=== PATIENT | male | born 1935 | race Caucasian/White ===

== ENCOUNTER 2018-05-04 06:48 | Inpatient (IN) | payer MEDICARE, BC, SELFPAY ==
[2018-05-04] VITALS (20 sets, daily range): BP systolic 107–150; BP diastolic 54–83; PULSE 72–105; RESP 15–25; TEMP 37.4–38.7; O2SAT 86–99; BMI 30.8
--- NOTE | 2018-05-04 07:14 | ED.ABDPAIN ---
HPI - Abdominal Pain General Chief Complaint: Abdominal Pain Stated Complaint: RLQ pain Time Seen by Provider: 05/04/18 06:54 Source: patient Mode of arrival: other (air lift from [facility]) Limitations: no limitations History of Present Illness HPI narrative: This is an 82-year-old male comes to the emergency department with complaint of right lower quadrant pain in the abdomen. Patient states he has been having pain for the last 2 days. He states that it is between the belly button and the right hip. He states that it does not radiate to his flank or back. He does have some back pain but states it is his chronic back pain. He had a fever here on arrival. He has not had any nausea or vomiting. He has felt like he needed to have a bowel movement for the last day and a half but has not had 1 even after taking laxatives. He is passing gas regularly. He has noticed that his urine was technical analyst than it normally is. He also noticed he had some discomfort with urination. Patient states that he did had abdominal surgery in the past for what sounds like a perforated stomach after taking NSAIDs or similar medication. He has a history significant for atrial fibrillation, polymyalgia rheumatica, hypertension and dyslipidemia. He has not smoked in about 40 years, he quit drinking about a year ago. He denies any current illicit. Related Data Home Medications Medication Instructions Recorded Confirmed acetaminophen 1,000 mg PO TID 05/04/18 05/04/18 amlodipine [Norvasc] 5 mg PO QPM 05/04/18 05/04/18 ascorbic acid (vitamin C) 500 mg PO BID 05/04/18 05/04/18 aspirin 81 mg PO DAILY 05/04/18 05/04/18 finasteride 5 mg PO DAILY 05/04/18 05/04/18 fosinopril 20 mg PO BID 05/04/18 05/04/18 lovastatin 40 mg PO QPM 05/04/18 05/04/18 methotrexate sodium (PF) 1 ml IM QWEEK 05/04/18 05/04/18 multivitamin [One Daily 1 tab PO DAILY 05/04/18 05/04/18 Multivitamin] potassium chloride [Klor-Con M20] 20 meq PO DAILY 05/04/18 05/04/18 sotalol 40 mg PO BID 05/04/18 05/04/18 tamsulosin [Flomax] 0.4 mg PO QPM 05/04/18 05/04/18 warfarin [Jantoven] 2.5 mg PO MOWEFR 05/04/18 05/04/18 warfarin [Jantoven] 5 mg PO SUTUTHSA 05/04/18 05/04/18 Previous Rx's Medication Instructions Recorded allopurinol 300 mg PO QDAY #90 tab 08/26/16 hydrochlorothiazide 25 mg PO QAM #90 tab 08/26/16 Allergies Allergy/AdvReac Type Severity Reaction Status Date / Time latex [LATEX] Allergy Mild Verified 05/04/18 07:31 Review of Systems Review of Systems All systems reviewed & are unremarkable except as noted in HPI and below Constitutional Reports fever(s) Cardiovascular Denies chest pain and Denies dyspnea Respiratory Denies dyspnea Gastrointestinal Gastrointestinal: Reports abdominal pain (Right lower quadrant), Denies change in bowel habits, Reports constipation, Denies diarrhea, Denies nausea and Denies vomiting Genitourinary Denies hematuria, Denies difficulty urinating, Denies genital pain, Reports dysuria, Denies flank pain, Reports urinary frequency, Denies urinary incontinence and Reports urinary urgency Musculoskeletal Reports back pain (Chronic back pain) Integumentary/Breasts Denies rash PFSH Medical History Atrial fibrillation (Acute) Cholelithiasis (Acute) Chronic anticoagulation (Acute) Gout (Acute) History of gastric ulcer (Acute) History of tobacco use (Acute) Hyperlipidemia (Acute) Hypertension (Acute) Obesity (Acute) Polymyalgia rheumatica (Acute) Surgical History History of laparotomy (Acute) Family History: Reviewed 05/04/18 by Jose Perez MD Social History household members: spouse and other Smoking Status: Former smoker alcohol intake: former Exam Narrative Exam Narrative: GENERAL: Alert and oriented x three, well-nourished, well-appearing elderly male in mild distress. HEENT: Head normocephalic, atraumatic, EOMI, pupils reactive, face symmetric, moist mucous membranes NECK: Supple, full range of motion CARDIOVASCULAR: Regular rate and rhythm without murmurs, rubs or gallops. RESPIRATORY: Breath sounds equal bilaterally, no wheezes rales or rhonchi. ABDOMEN: Soft, positive for right lower quadrant tenderness. Normoactive bowel sounds all 4 quadrants. No guarding, positive for rebound, no rigidity, no mass : No CVA tenderness EXTREMITIES: Normal range of motion, no clubbing or edema. Neurovascularly intact NEUROLOGICAL: Cranial nerves II through XII grossly intact. Moving all extremities SKIN: Warm, dry, no petechiae, no rashes or lesions. Initial Vital Signs Initial Vital Signs: Vital Signs Temperature 100.5 F H 05/04/18 07:04 Pulse Rate 97 H 05/04/18 07:04 Respiratory Rate 15 05/04/18 07:04 Blood Pressure 135/69 05/04/18 07:04 Pulse Oximetry 93 05/04/18 07:04 Course Orders Ordered: ED Orders 05/04/18 11:05 Education, smoking cessation ONGOING 05/04/18 11:09 Consult to Discharge Planning Routine 05/04/18 11:24 Fresh Frozen Plasma Stat Type and Screen Stat 05/04/18 16:05 Prothrombin Time INR Routine 05/05/18 05:00 Prothrombin Time INR Routine Acetaminophen (Tylenol) 650 mg PO Q6HR PRN PRN Reason: As Needed for Fever/Mild Pain Hydromorphone HCl (Dilaudid) 1 mg IV Q2H PRN PRN Reason: Pain, Severe (7-10) Sodium Chloride (Normal Saline 0.9%) 1,000 mls @ 150 mls/hr IV CONT [facility] Last Infusion: 05/04/18 11:26 Dose: 0 mls/hr Admin: 05/04/18 10:19 Dose: 150 mls/hr Sodium Chloride (Normal Saline 0.9%) 1,000 mls @ 100 mls/hr IV CONT [facility] Last Admin: 05/04/18 12:26 Dose: 100 mls/hr Metronidazole (Flagyl) 500 mg in 100 mls @ 100 mls/hr IV Q8H [facility] Last Infusion: 05/04/18 18:54 Dose: 100 mls/hr Admin: 05/04/18 17:45 Dose: 100 mls/hr Piperacillin/Tazobactam/Dextrose (Zosyn) 3.375 gm in 50 mls @ 100 mls/hr IV Q8H [facility] Ondansetron HCl (Zofran) 4 mg IV Q6HR [facility] Last Admin: 05/04/18 18:53 Dose: Admin: 05/04/18 18:52 Dose: Discontinued Medications Acetaminophen (Tylenol) 650 mg PO NOW ONE Stop: 05/04/18 07:21 Last Admin: 05/04/18 07:34 Dose: 650 mg Metronidazole (Flagyl) 500 mg in 100 mls @ 100 mls/hr IV Q8H [facility] Last Admin: 05/04/18 18:58 Dose: Not Given Piperacillin/Tazobactam/Dextrose (Zosyn) 3.375 gm in 50 mls @ 100 mls/hr IV Q8H [facility] Last Admin: 05/04/18 12:26 Dose: 100 mls/hr Piperacillin/Tazobactam/Dextrose (Zosyn) 3.375 gm in 50 mls @ 100 mls/hr IV Q8H [facility] Piperacillin/Tazobactam/Dextrose (Zosyn) 3.375 gm in 50 mls @ 100 mls/hr IV Q8H [facility] Last Admin: 05/04/18 18:57 Dose: Morphine Sulfate (Morphine) 4 mg IV NOW ONE Stop: 05/04/18 07:21 Last Admin: 05/04/18 10:19 Dose: 4 mg Ondansetron HCl (Zofran) 4 mg IV NOW ONE Stop: 05/04/18 07:31 Last Admin: 05/04/18 07:31 Dose: 4 mg Vital Signs - 8 hr 05/04/18 11:11 05/04/18 11:40 05/04/18 14:40 Temperature 99.6 F 101.7 F H Pulse Rate 72 100 H 98 H Respiratory Rate 18 18 16 Blood Pressure 150/66 H 143/63 H Blood Pressure [Right Arm] 124/62 Pulse Oximetry 93 95 05/04/18 15:00 05/04/18 15:52 05/04/18 17:23 Temperature 99.8 F H 99.8 F H Pulse Rate 98 H 98 H Respiratory Rate 20 20 Blood Pressure 148/63 H 148/63 H Blood Pressure [Right Arm] Pulse Oximetry 93 94 MDM - Abdominal Pain Differential Diagnosis Differential diagnosis: Likely abdominal pain, acute appendicitis, calculus of kidney, constipation, diverticulitis, small bowel obstruction and other (large bowel obstruction) Lab Data Attestation: I reviewed the patient's lab results. Result diagrams: 05/04/18 07:20 05/04/18 07:20 Lab Results 05/04/18 05/04/18 05/04/18 Range/Units 07:20 07:20 07:20 WBC 14.1 H (4.5-11.0) X10^3/uL RBC 4.53 (4.5-5.9) X10^6/uL Hgb 14.5 (13.5-17.5) g/dL Hct 42.8 (41-53) % MCV 94.5 (80-100) fL MCH 32.0 (26-34) PG MCHC 33.9 (30-36) % RDW 15.6 H (11.6-14.8) % Plt Count 224 (150-400) X10^3/uL Neut % (Auto) 87.3 H (50-75) % Lymph % (Auto) 6.0 L (25-40) % [place] % (Auto) 5.8 (3-14) % Eos % (Auto) 0.1 L (2-4) % Baso % (Auto) 0.8 (0-2) % PT (10.1-12.7) SECONDS INR (0.9-1.3) Sodium 139 (137-145) mmol/L Potassium 3.9 (3.4-5.1) mmol/L Chloride 99 (98-107) mmol/L Carbon Dioxide 27 (22-32) mmol/L BUN 16 (9-20) mg/dL Creatinine 0.70 (0.66-1.25) mg/dL Estimated GFR > 60.0 (>60) mL/min BUN/Creatinine Ratio 22.9 H (6-22) Glucose 138 H (80-110) mg/dL Calcium 8.8 (8.4-10.2) mg/dL Total Bilirubin 1.4 H (0.2-1.3) mg/dL AST 23 (17-59) IU/L ALT 26 (21-72) IU/L Alkaline Phosphatase 54 (38-126) U/L Total Protein 6.8 (6.3-8.2) g/dL Albumin 4.1 (3.5-5.0) g/dL Globulin 2.7 (1.7-4.1) g/dL Albumin/Globulin Ratio 1.5 (1.0-2.8) Lipase 33 (23-300) U/L Urine RBC None seen (0-5/HPF) Urine WBC 1-5/hpf (0-5/HPF) Ur Squamous Epith Cells 1-5 /hpf Urine Bacteria Many (>30) H (None) Ur Culture Indicated? Cult not indicated Micro UA Comment Not Reportable Blood Type Antibody Screen 05/04/18 05/04/18 05/04/18 Range/Units 07:20 11:24 16:05 WBC (4.5-11.0) X10^3/uL RBC (4.5-5.9) X10^6/uL Hgb (13.5-17.5) g/dL Hct (41-53) % MCV (80-100) fL MCH (26-34) PG MCHC (30-36) % RDW (11.6-14.8) % Plt Count (150-400) X10^3/uL Neut % (Auto) (50-75) % Lymph % (Auto) (25-40) % [place] % (Auto) (3-14) % Eos % (Auto) (2-4) % Baso % (Auto) (0-2) % PT 28.0 H 23.3 H (10.1-12.7) SECONDS INR 2.4 H 2.0 H (0.9-1.3) Sodium (137-145) mmol/L Potassium (3.4-5.1) mmol/L Chloride (98-107) mmol/L Carbon Dioxide (22-32) mmol/L BUN (9-20) mg/dL Creatinine (0.66-1.25) mg/dL Estimated GFR (>60) mL/min BUN/Creatinine Ratio (6-22) Glucose (80-110) mg/dL Calcium (8.4-10.2) mg/dL Total Bilirubin (0.2-1.3) mg/dL AST (17-59) IU/L ALT (21-72) IU/L Alkaline Phosphatase (38-126) U/L Total Protein (6.3-8.2) g/dL Albumin (3.5-5.0) g/dL Globulin (1.7-4.1) g/dL Albumin/Globulin Ratio (1.0-2.8) Lipase (23-300) U/L Urine RBC (0-5/HPF) Urine WBC (0-5/HPF) Ur Squamous Epith Cells Urine Bacteria (None) Ur Culture Indicated? Micro UA Comment Blood Type AB Positive Antibody Screen Negative Point of care testing: Urine Dip Bedside Urine Glucose Negative Bedside Urine Bilirubin - Negative Bedside Urine Ketone ++ 40 Urine Specific [place] 1.030 Bedside Urine Occult Blood - Negative Bedside Urine pH 6.0 Bedside Urine Protein +/- 15 Bedside Urine Urobilinogen - Negative Bedside Urine Nitrite - Negative Bedside Urine Leukocytes - Negative Esterase Imaging Data CT scan - abdomen: Radiologist's impression: Launch Image View Report History [address] [address] [address] Scan Report Signed Patient: Teja Gage MR#: [id number] : 1935 Acct:[id number] Age/Sex: 82 / M Date of Service: 05/04/18 Loc: ED Accession Number: [id number] Procedure: CT abdomen pelvis w con Ordering Provider: Connie Ball D.O. PROCEDURE: CT ABDOMEN PELVIS W CON INDICATIONS: right lower quad pain, no BM x 2 days, no emesis, appy vs obstruction vs. TECHNIQUE: After the administration of intravenous contrast, 5 mm thick sections acquired from the diaphragm to the symphysis. 5 mm coronal and sagittal reformats were acquired. For radiation dose reduction, the following was used: automated exposure control, adjustment of mA and/or kV according to patient size. COMPARISON: None. FINDINGS: Image quality: Excellent. ABDOMEN: Lung bases: Mild bibasilar scarring versus atelectasis is present. Heart size is normal. Solid organs: Liver is normal in size and enhancement. Gallbladder demonstrates a calculus within its lumen.. Biliary system is non dilated. Pancreas enhances normally. Spleen is normal in size and enhancement. No adrenal nodules. Kidneys demonstrate normal size and enhancement, without hydronephrosis. Peritoneum and bowel: Stomach is within normal limits. There is mild distention of several small bowel loops within the left upper quadrant. There is mild thickening of the terminal ileum. The colon is nondistended. There is diverticulosis of the descending and sigmoid colon. There is moderate thickening of the mid sigmoid colon. There is moderate fat stranding surrounding the sigmoid colon. The appendix is distended, measuring 15 mm, and demonstrates an appendicolith at its base. There is moderate fat stranding surrounding the appendix. Severe fat stranding within the right lower quadrant is present, adjacent to the mid sigmoid colon, appendix, and cecum. Small amount of free fluid in the pelvis. No pneumoperitoneum. Nodes and vessels: No retroperitoneal or mesenteric adenopathy by size criteria. Aorta and inferior vena cava are normal in size. Miscellaneous: No ventral hernias. PELVIS: Genitourinary: Moderate to severe thickening of the superior and right superior urinary bladder wall. Miscellaneous: No inguinal hernias or adenopathy. Bones: No suspicious bony lesions. No vertebral body compression fractures. IMPRESSION: 1. Acute appendicitis with appendicolith, with severe surrounding inflammation. There is associated secondary thickening/inflammation of the pizarro of the cecum, terminal ileum, sigmoid colon, and urinary bladder. 2. Followup colonoscopy is recommended to exclude underlying neoplasm. 3. Patient is at risk for enterovesical fistula, secondary to the urinary bladder wall thickening and multiple adjacent small and large bowel loops. 4. Cholelithiasis. 5. Findings discussed with Dr. Ball on 05.04.18 at 0855 hrs.. Dictated by: Jordan Scanlon M.D. on 05/04/2018 at 8:47 Approved by: Jordan Scanlon M.D. on 05/04/2018 at 8:56 MDM Narrative Medical decision making narrative: Discussed with Dr. Perez, suspicious exam, fever, wbc 14 although no BM x [address] abd/pelvis first. Dr. Scanlon called with results, appendicitis, appendicolith, sigmoid, ileum and bladder are all inflammed. No fistula seen. Colon thickened. Spoke with Dr. Perez, he will be in ED to see patient then decide to admit to medicine vs. surgery. He'll take care of reversal of coumadin, antibiotics and decision was made to admit to Dr. Perez. Discharge Plan Departure Patient Disposition: Admitted as Observation Clinical Impression: Acute appendicitis Discharge Date/Time: 05/04/18 11:30 Interventions: ED Discharge Assessment Last Done: 05/04/18 11:29 Admit Date/Time: 05/04/18 09:29 Admit Provider: Jose Perez
--- NOTE | 2018-05-04 07:19 | ED_ITS ---
HPI - Abdominal Pain General Chief Complaint: Abdominal Pain Stated Complaint: RLQ pain Time Seen by Provider: 05/04/18 06:54 Source: patient Mode of arrival: other (air lift from [facility]) Limitations: no limitations History of Present Illness HPI narrative: This is an 82-year-old male comes to the emergency department with complaint of right lower quadrant pain in the abdomen. Patient states he has been having pain for the last 2 days. He states that it is between the belly button and the right hip. He states that it does not radiate to his flank or back. He does have some back pain but states it is his chronic back pain. He had a fever here on arrival. He has not had any nausea or vomiting. He has felt like he needed to have a bowel movement for the last day and a half but has not had 1 even after taking laxatives. He is passing gas regularly. He has noticed that his urine was weeder than it normally is. He also noticed he had some discomfort with urination. Patient states that he did had abdominal surgery in the past for what sounds like a perforated stomach after taking NSAIDs or similar medication. He has a history significant for atrial fibrillation, polymyalgia rheumatica, hypertension and dyslipidemia. He has not smoked in about 40 years, he quit drinking about a year ago. He denies any current illicit. Related Data Home Medications Medication Instructions Recorded Confirmed acetaminophen 1,000 mg PO TID 05/04/18 05/04/18 amlodipine [Norvasc] 5 mg PO QPM 05/04/18 05/04/18 ascorbic acid (vitamin C) 500 mg PO BID 05/04/18 05/04/18 aspirin 81 mg PO DAILY 05/04/18 05/04/18 finasteride 5 mg PO DAILY 05/04/18 05/04/18 fosinopril 20 mg PO BID 05/04/18 05/04/18 lovastatin 40 mg PO QPM 05/04/18 05/04/18 methotrexate sodium (PF) 1 ml IM QWEEK 05/04/18 05/04/18 multivitamin [One Daily 1 tab PO DAILY 05/04/18 05/04/18 Multivitamin] potassium chloride [Klor-Con M20] 20 meq PO DAILY 05/04/18 05/04/18 sotalol 40 mg PO BID 05/04/18 05/04/18 tamsulosin [Flomax] 0.4 mg PO QPM 05/04/18 05/04/18 warfarin [Jantoven] 2.5 mg PO MOWEFR 05/04/18 05/04/18 warfarin [Jantoven] 5 mg PO SUTUTHSA 05/04/18 05/04/18 Previous Rx's Medication Instructions Recorded allopurinol 300 mg PO QDAY #90 tab 08/26/16 hydrochlorothiazide 25 mg PO QAM #90 tab 08/26/16 Allergies Allergy/AdvReac Type Severity Reaction Status Date / Time latex [LATEX] Allergy Mild Verified 05/04/18 07:31 Review of Systems Review of Systems All systems reviewed & are unremarkable except as noted in HPI and below Constitutional Reports fever(s) Cardiovascular Denies chest pain and Denies dyspnea Respiratory Denies dyspnea Gastrointestinal Gastrointestinal: Reports abdominal pain (Right lower quadrant), Denies change in bowel habits, Reports constipation, Denies diarrhea, Denies nausea and Denies vomiting Genitourinary Denies hematuria, Denies difficulty urinating, Denies genital pain, Reports dysuria, Denies flank pain, Reports urinary frequency, Denies urinary incontinence and Reports urinary urgency Musculoskeletal Reports back pain (Chronic back pain) Integumentary/Breasts Denies rash PFSH Medical History Atrial fibrillation (Acute) Cholelithiasis (Acute) Chronic anticoagulation (Acute) Gout (Acute) History of gastric ulcer (Acute) History of tobacco use (Acute) Hyperlipidemia (Acute) Hypertension (Acute) Obesity (Acute) Polymyalgia rheumatica (Acute) Surgical History History of laparotomy (Acute) Family History: Reviewed 05/04/18 by Jose Perez MD Social History household members: spouse and other Smoking Status: Former smoker alcohol intake: former Exam Narrative Exam Narrative: GENERAL: Alert and oriented x three, well-nourished, well- appearing elderly male in mild distress. HEENT: Head normocephalic, atraumatic, EOMI, pupils reactive, face symmetric, moist mucous membranes NECK: Supple, full range of motion CARDIOVASCULAR: Regular rate and rhythm without murmurs, rubs or gallops. RESPIRATORY: Breath sounds equal bilaterally, no wheezes rales or rhonchi. ABDOMEN: Soft, positive for right lower quadrant tenderness. Normoactive bowel sounds all 4 quadrants. No guarding, positive for rebound, no rigidity, no mass : No CVA tenderness EXTREMITIES: Normal range of motion, no clubbing or edema. Neurovascularly intact NEUROLOGICAL: Cranial nerves II through XII grossly intact. Moving all extremities SKIN: Warm, dry, no petechiae, no rashes or lesions. Initial Vital Signs Initial Vital Signs: Vital Signs Temperature 100.5 F H 05/04/18 07:04 Pulse Rate 97 H 05/04/18 07:04 Respiratory Rate 15 05/04/18 07:04 Blood Pressure 135/69 05/04/18 07:04 Pulse Oximetry 93 05/04/18 07:04 Course Orders Ordered: ED Orders 05/04/18 11:05 Education, smoking cessation ONGOING 05/04/18 11:09 Consult to Discharge Planning Routine 05/04/18 11:24 Fresh Frozen Plasma Stat Type and Screen Stat 05/04/18 16:05 Prothrombin Time INR Routine 05/05/18 05:00 Prothrombin Time INR Routine Acetaminophen (Tylenol) 650 mg PO Q6HR PRN PRN Reason: As Needed for Fever/Mild Pain Hydromorphone HCl (Dilaudid) 1 mg IV Q2H PRN PRN Reason: Pain, Severe (7-10) Sodium Chloride (Normal Saline 0.9%) 1,000 mls @ 150 mls/hr IV CONT [facility] Last Infusion: 05/04/18 11:26 Dose: 0 mls/hr Admin: 05/04/18 10:19 Dose: 150 mls/hr Sodium Chloride (Normal Saline 0.9%) 1,000 mls @ 100 mls/hr IV CONT [facility] Last Admin: 05/04/18 12:26 Dose: 100 mls/hr Metronidazole (Flagyl) 500 mg in 100 mls @ 100 mls/hr IV Q8H [facility] Last Infusion: 05/04/18 18:54 Dose: 100 mls/hr Admin: 05/04/18 17:45 Dose: 100 mls/hr Piperacillin/Tazobactam/Dextrose (Zosyn) 3.375 gm in 50 mls @ 100 mls/hr IV Q8H [facility] Ondansetron HCl (Zofran) 4 mg IV Q6HR [facility] Last Admin: 05/04/18 18:53 Dose: Admin: 05/04/18 18:52 Dose: Discontinued Medications Acetaminophen (Tylenol) 650 mg PO NOW ONE Stop: 05/04/18 07:21 Last Admin: 05/04/18 07:34 Dose: 650 mg Metronidazole (Flagyl) 500 mg in 100 mls @ 100 mls/hr IV Q8H [facility] Last Admin: 05/04/18 18:58 Dose: Not Given Piperacillin/Tazobactam/Dextrose (Zosyn) 3.375 gm in 50 mls @ 100 mls/hr IV Q8H [facility] Last Admin: 05/04/18 12:26 Dose: 100 mls/hr Piperacillin/Tazobactam/Dextrose (Zosyn) 3.375 gm in 50 mls @ 100 mls/hr IV Q8H [facility] Piperacillin/Tazobactam/Dextrose (Zosyn) 3.375 gm in 50 mls @ 100 mls/hr IV Q8H [facility] Last Admin: 05/04/18 18:57 Dose: Morphine Sulfate (Morphine) 4 mg IV NOW ONE Stop: 05/04/18 07:21 Last Admin: 05/04/18 10:19 Dose: 4 mg Ondansetron HCl (Zofran) 4 mg IV NOW ONE Stop: 05/04/18 07:31 Last Admin: 05/04/18 07:31 Dose: 4 mg Vital Signs - 8 hr 05/04/18 11:11 05/04/18 11:40 05/04/18 14:40 Temperature 99.6 F 101.7 F H Pulse Rate 72 100 H 98 H Respiratory Rate 18 18 16 Blood Pressure 150/66 H 143/63 H Blood Pressure [Right Arm] 124/62 Pulse Oximetry 93 95 05/04/18 15:00 05/04/18 15:52 05/04/18 17:23 Temperature 99.8 F H 99.8 F H Pulse Rate 98 H 98 H Respiratory Rate 20 20 Blood Pressure 148/63 H 148/63 H Blood Pressure [Right Arm] Pulse Oximetry 93 94 MDM - Abdominal Pain Differential Diagnosis Differential diagnosis: Likely abdominal pain, acute appendicitis, calculus of kidney, constipation, diverticulitis, small bowel obstruction and other (large bowel obstruction) Lab Data Attestation: I reviewed the patient's lab results. Result diagrams: 05/04/18 07:20 05/04/18 07:20 Lab Results 05/04/18 05/04/18 05/04/18 Range/Units 07:20 07:20 07:20 WBC 14.1 H (4.5-11.0) X10^3/uL RBC 4.53 (4.5-5.9) X10^6/uL Hgb 14.5 (13.5-17.5) g/dL Hct 42.8 (41-53) % MCV 94.5 (80-100) fL MCH 32.0 (26-34) PG MCHC 33.9 (30-36) % RDW 15.6 H (11.6-14.8) % Plt Count 224 (150-400) X10^3/uL Neut % (Auto) 87.3 H (50-75) % Lymph % (Auto) 6.0 L (25-40) % [place] % (Auto) 5.8 (3-14) % Eos % (Auto) 0.1 L (2-4) % Baso % (Auto) 0.8 (0-2) % PT (10.1-12.7) SECONDS INR (0.9-1.3) Sodium 139 (137-145) mmol/L Potassium 3.9 (3.4-5.1) mmol/L Chloride 99 (98-107) mmol/L Carbon Dioxide 27 (22-32) mmol/L BUN 16 (9-20) mg/dL Creatinine 0.70 (0.66-1.25) mg/dL Estimated GFR > 60.0 (>60) mL/min BUN/Creatinine Ratio 22.9 H (6-22) Glucose 138 H (80-110) mg/dL Calcium 8.8 (8.4-10.2) mg/dL Total Bilirubin 1.4 H (0.2-1.3) mg/dL AST 23 (17-59) IU/L ALT 26 (21-72) IU/L Alkaline Phosphatase 54 (38-126) U/L Total Protein 6.8 (6.3-8.2) g/dL Albumin 4.1 (3.5-5.0) g/dL Globulin 2.7 (1.7-4.1) g/dL Albumin/Globulin Ratio 1.5 (1.0-2.8) Lipase 33 (23-300) U/L Urine RBC None seen (0-5/HPF) Urine WBC 1-5/hpf (0-5/HPF) Ur Squamous Epith Cells 1-5 /hpf Urine Bacteria Many (>30) H (None) Ur Culture Indicated? Cult not indicated Micro UA Comment Not Reportable Blood Type Antibody Screen 05/04/18 05/04/18 05/04/18 Range/Units 07:20 11:24 16:05 WBC (4.5-11.0) X10^3/uL RBC (4.5-5.9) X10^6/uL Hgb (13.5-17.5) g/dL Hct (41-53) % MCV (80-100) fL MCH (26-34) PG MCHC (30-36) % RDW (11.6-14.8) % Plt Count (150-400) X10^3/uL Neut % (Auto) (50-75) % Lymph % (Auto) (25-40) % [place] % (Auto) (3-14) % Eos % (Auto) (2-4) % Baso % (Auto) (0-2) % PT 28.0 H 23.3 H (10.1-12.7) SECONDS INR 2.4 H 2.0 H (0.9-1.3) Sodium (137-145) mmol/L Potassium (3.4-5.1) mmol/L Chloride (98-107) mmol/L Carbon Dioxide (22-32) mmol/L BUN (9-20) mg/dL Creatinine (0.66-1.25) mg/dL Estimated GFR (>60) mL/min BUN/Creatinine Ratio (6-22) Glucose (80-110) mg/dL Calcium (8.4-10.2) mg/dL Total Bilirubin (0.2-1.3) mg/dL AST (17-59) IU/L ALT (21-72) IU/L Alkaline Phosphatase (38-126) U/L Total Protein (6.3-8.2) g/dL Albumin (3.5-5.0) g/dL Globulin (1.7-4.1) g/dL Albumin/Globulin Ratio (1.0-2.8) Lipase (23-300) U/L Urine RBC (0-5/HPF) Urine WBC (0-5/HPF) Ur Squamous Epith Cells Urine Bacteria (None) Ur Culture Indicated? Micro UA Comment Blood Type AB Positive Antibody Screen Negative Point of care testing: Urine Dip Bedside Urine Glucose Negative Bedside Urine Bilirubin - Negative Bedside Urine Ketone ++ 40 Urine Specific [place] 1.030 Bedside Urine Occult Blood - Negative Bedside Urine pH 6.0 Bedside Urine Protein +/- 15 Bedside Urine Urobilinogen - Negative Bedside Urine Nitrite - Negative Bedside Urine Leukocytes - Negative Esterase Imaging Data CT scan - abdomen: Radiologist's impression: Launch Image View Report History [address] [address] [address] Scan Report Signed Patient: Teja Gage MR#: [id number] : 1935 Acct:[id number] Age/Sex: 82 / M Date of Service: 05/04/18 Loc: ED Accession Number: [id number] Procedure: CT abdomen pelvis w con Ordering Provider: Connie Ball D.O. PROCEDURE: CT ABDOMEN PELVIS W CON INDICATIONS: right lower quad pain, no BM x 2 days, no emesis, appy vs obstruction vs. TECHNIQUE: After the administration of intravenous contrast, 5 mm thick sections acquired from the diaphragm to the symphysis. 5 mm coronal and sagittal reformats were acquired. For radiation dose reduction, the following was used: automated exposure control, adjustment of mA and/or kV according to patient size. COMPARISON: None. FINDINGS: Image quality: Excellent. ABDOMEN: Lung bases: Mild bibasilar scarring versus atelectasis is present. Heart size is normal. Solid organs: Liver is normal in size and enhancement. Gallbladder demonstrates a calculus within its lumen.. Biliary system is non dilated. Pancreas enhances normally. Spleen is normal in size and enhancement. No adrenal nodules. Kidneys demonstrate normal size and enhancement, without hydronephrosis. Peritoneum and bowel: Stomach is within normal limits. There is mild distention of several small bowel loops within the left upper quadrant. There is mild thickening of the terminal ileum. The colon is nondistended. There is diverticulosis of the descending and sigmoid colon. There is moderate thickening of the mid sigmoid colon. There is moderate fat stranding surrounding the sigmoid colon. The appendix is distended, measuring 15 mm, and demonstrates an appendicolith at its base. There is moderate fat stranding surrounding the appendix. Severe fat stranding within the right lower quadrant is present, adjacent to the mid sigmoid colon, appendix, and cecum. Small amount of free fluid in the pelvis. No pneumoperitoneum. Nodes and vessels: No retroperitoneal or mesenteric adenopathy by size criteria. Aorta and inferior vena cava are normal in size. Miscellaneous: No ventral hernias. PELVIS: Genitourinary: Moderate to severe thickening of the superior and right superior urinary bladder wall. Miscellaneous: No inguinal hernias or adenopathy. Bones: No suspicious bony lesions. No vertebral body compression fractures. IMPRESSION: 1. Acute appendicitis with appendicolith, with severe surrounding inflammation. There is associated secondary thickening/inflammation of the pizarro of the cecum, terminal ileum, sigmoid colon, and urinary bladder. 2. Followup colonoscopy is recommended to exclude underlying neoplasm. 3. Patient is at risk for enterovesical fistula, secondary to the urinary bladder wall thickening and multiple adjacent small and large bowel loops. 4. Cholelithiasis. 5. Findings discussed with Dr. Ball on 05.04.18 at 0855 hrs.. Dictated by: Jordan Scanlon M.D. on 05/04/2018 at 8:47 Approved by: Jordan Scanlon M.D. on 05/04/2018 at 8:56 MDM Narrative Medical decision making narrative: Discussed with Dr. Perez, suspicious exam, fever, wbc 14 although no BM x [address] abd/pelvis first. Dr. Scanlon called with results, appendicitis, appendicolith, sigmoid, ileum and bladder are all inflammed. No fistula seen. Colon thickened. Spoke with Dr. Perez, he will be in ED to see patient then decide to admit to medicine vs. surgery. He'll take care of reversal of coumadin, antibiotics and decision was made to admit to Dr. Perez. Discharge Plan Departure Patient Disposition: Admitted as Observation Clinical Impression: Acute appendicitis Discharge Date/Time: 05/04/18 11:30 Interventions: ED Discharge Assessment Last Done: 05/04/18 11:29 Admit Date/Time: 05/04/18 09:29 Admit Provider: Jose Perez
[2018-05-04] MEDS: ONDANSETRON 4 MG/2 ML INJ IV (07:31)
[2018-05-04] MEDS: ACETAMINOPHEN 325 MG TABLET 650 MG PO (07:34)
[2018-05-04 07:38] LABS: White Blood Cell Count 14.1 X10^3/uL (4.5-11.0)
[2018-05-04 07:39] LABS: Alanine Aminotransferase 26 IU/L (21-72); Albumin 4.1 g/dL (3.5-5.0); Albumin Globulin Ratio 1.5 (1.0-2.8); Alkaline Phosphatase 54 U/L (38-126); Aspartate Aminotransferase 23 IU/L (17-59); BUN Creatinine Ratio 22.9 (6-22); Bilirubin Total 1.4 mg/dL (0.2-1.3); Blood Urea Nitrogen 16 mg/dL (9-20); Calcium 8.8 mg/dL (8.4-10.2); Carbon Dioxide 27 mmol/L (22-32); Chloride 99 mmol/L (98-107); Eosinophils Percent Auto 0.1 % (2-4); Estimated Glomerular Filt Rate > 60.0 mL/min (>60); Globulin 2.7 g/dL (1.7-4.1); Glucose 138 mg/dL (80-110); HEMOLYSIS < 15 (0-50); Hematocrit 42.8 % (41-53); Hemoglobin 14.5 g/dL (13.5-17.5); Lipase 33 U/L (23-300); Mean Corpuscular HGB Conc 33.9 % (30-36); Mean Corpuscular Volume 94.5 fL (80-100); Monocytes Percent Auto 5.8 % (3-14); Neutrophils Percent Auto 87.3 % (50-75); Platelet Count 224 X10^3/uL (150-400); Potassium 3.9 mmol/L (3.4-5.1); Red Blood Cell Count 4.53 X10^6/uL (4.5-5.9); Red Cell Distribution Width 15.6 % (11.6-14.8); Sodium 139 mmol/L (137-145); Total Protein 6.8 g/dL (6.3-8.2)
[2018-05-04 07:40] LABS: Add Manual Diff / Slide Review NO; Basophils Percent Auto 0.8 % (0-2)
[2018-05-04 07:55] LABS: RBC Urine None Seen (0-5/HPF)
--- NOTE | 2018-05-04 07:55 | PC.NURSE ---
Patient is sleepy and O2 saturation is dropping to mid 80's. Nurse is putting patient on O2 cannula.
[2018-05-04 08:02] LABS: INR 2.4 (0.9-1.3)
--- NOTE | 2018-05-04 08:03 | PC.NURSE ---
IV site changed per pts request
[2018-05-04 08:09] LABS: Bacteria Urine Many (>30); Culture Indicated Urine Cult Not Indicated; Squamous Epithelial Cell Urine 1-5 /HPF; WBC Urine 1-5/HPF (0-5/HPF)
--- NOTE | 2018-05-04 08:55 | PC.NURSE ---
Pt states my knows my medications. Gets them [facility] mail order.
[2018-05-04] MEDS: SODIUM CHLORIDE 0.9% 1,000 ML 150 ML IV (10:19)
[2018-05-04] MEDS: MORPHINE 4 MG/ML INJ IV (10:19)
--- NOTE | 2018-05-04 11:14 | PM.HP.1 ---
History of Present Illness Date Patient Seen: 05/04/18 Time Patient Seen: 11:15 Chief complaint: RLQ pain Narrative: 82-year-old male with multiple comorbid medical conditions who presents to the emergency department early this morning with 2 day history of progressive right-sided abdominal pain. He states he had a similar episode approximately 6 months ago but this spontaneously resolved. Current episode has become progressively more severe with regard to pain intensity. He has also had some nausea. He has been progressively anorexic over the last 24 hr and has not eaten at all today other than a small simple water with medications. He has had a low-grade subjective fever and was mildly febrile in the emergency department. Denies any dysuria or hematuria. Last bowel movement was 2 days ago which is unusual for him as well. No recent diarrhea or constipation. No melena, hematochezia, or bright red blood per rectum. No chest pain or shortness of breath. Pain is exacerbated with coughing or laughing. Patient History Medical History Atrial fibrillation (Acute) Cholelithiasis (Acute) Chronic anticoagulation (Acute) Gout (Acute) History of gastric ulcer (Acute) History of tobacco use (Acute) Hyperlipidemia (Acute) Hypertension (Acute) Obesity (Acute) Polymyalgia rheumatica (Acute) Surgical History History of laparotomy (Acute) Family & Social History Family History: Reviewed 05/04/18 by oJse Perez MD Safety & Behavioral: Feels Safe in Current Yes Environment Been Physically Hurt or No Threatened By a Person Tobacco & Substance use: Smoking Status Former smoker alcohol intake former alcohol intake frequency holiday/special occasion Substance Use Type does not use Meds Home Medications Medication Instructions Recorded Confirmed Type allopurinol 300 mg PO QDAY #90 tab 08/26/16 05/04/18 Rx hydrochlorothiazide 25 mg PO QAM #90 tab 08/26/16 05/04/18 Rx acetaminophen 1,000 mg PO TID 05/04/18 05/04/18 History amlodipine [Norvasc] 5 mg PO QPM 05/04/18 05/04/18 History ascorbic acid (vitamin C) 500 mg PO BID 05/04/18 05/04/18 History aspirin 81 mg PO DAILY 05/04/18 05/04/18 History finasteride 5 mg PO DAILY 05/04/18 05/04/18 History fosinopril 20 mg PO BID 05/04/18 05/04/18 History lovastatin 40 mg PO QPM 05/04/18 05/04/18 History methotrexate sodium (PF) 1 ml IM QWEEK 05/04/18 05/04/18 History multivitamin [One Daily 1 tab PO DAILY 05/04/18 05/04/18 History Multivitamin] potassium chloride [Klor-Con M20] 20 meq PO DAILY 05/04/18 05/04/18 History sotalol 40 mg PO BID 05/04/18 05/04/18 History tamsulosin [Flomax] 0.4 mg PO QPM 05/04/18 05/04/18 History warfarin [Jantoven] 2.5 mg PO MOWEFR 05/04/18 05/04/18 History warfarin [Jantoven] 5 mg PO SUTUTHSA 05/04/18 05/04/18 History Allergies Allergy/AdvReac Type Severity Reaction Status Date / Time latex [LATEX] Allergy Mild Verified 05/04/18 07:31 Review of Systems Review of Systems All systems reviewed & are unremarkable except as noted in HPI and below Exam Vital Signs (past 8 hours): - 05/04/18 07:04 05/04/18 07:34 05/04/18 07:35 Temperature 100.5 F H 100.5 F H Pulse Rate 97 H 98 H Respiratory Rate 15 22 Blood Pressure 135/69 Blood Pressure [Right Arm] 146/54 H Pulse Oximetry 93 86 L 05/04/18 08:04 05/04/18 08:38 05/04/18 08:43 Temperature 99.3 F 99.3 F Pulse Rate 102 H 101 H Respiratory Rate 18 18 Blood Pressure Blood Pressure [Right Arm] 129/64 132/83 Pulse Oximetry 96 99 05/04/18 09:35 05/04/18 10:08 05/04/18 11:11 Temperature Pulse Rate 98 H 96 H 72 Respiratory Rate 19 15 18 Blood Pressure Blood Pressure [Right Arm] 107/59 L 132/65 124/62 Pulse Oximetry 96 97 93 Oxygen Delivery Method Room Air Oxygen Flow Rate 2 Narrative Exam Narrative: Well-nourished well-developed male in no acute distress. Alert oriented x3. is at the bedside for my visit Sclera nonicteric Chest clear to auscultation bilaterally without crackles or wheezes. Irregular rhythm. No murmurs. Abdomen is protuberant but soft. Well-healed upper midline abdominal scar without obvious hernias. He is diffusely tender but shows evidence of involuntary rebound tenderness in the right lower quadrant near McBurney's point. No masses. Extremities show no clubbing or cyanosis Objective Labs Result Diagrams: 05/04/18 07:20 05/04/18 07:20 Labs: Laboratory Results - last 24 hr 05/04/18 05/04/18 05/04/18 07:20 07:20 07:20 WBC 14.1 H RBC 4.53 Hgb 14.5 Hct 42.8 MCV 94.5 MCH 32.0 MCHC 33.9 RDW 15.6 H Plt Count 224 Neut % (Auto) 87.3 H Lymph % (Auto) 6.0 L [place] % (Auto) 5.8 Eos % (Auto) 0.1 L Baso % (Auto) 0.8 PT INR Sodium 139 Potassium 3.9 Chloride 99 Carbon Dioxide 27 BUN 16 Creatinine 0.70 Estimated GFR > 60.0 BUN/Creatinine Ratio 22.9 H Glucose 138 H Calcium 8.8 Total Bilirubin 1.4 H AST 23 ALT 26 Alkaline Phosphatase 54 Total Protein 6.8 Albumin 4.1 Globulin 2.7 Albumin/Globulin Ratio 1.5 Lipase 33 Urine RBC None seen Urine WBC 1-5/hpf Ur Squamous Epith Cells 1-5 /hpf Urine Bacteria Many (>30) H Ur Culture Indicated? Cult not indicated Micro UA Comment Not Reportable 05/04/18 07:20 WBC RBC Hgb Hct MCV MCH MCHC RDW Plt Count Neut % (Auto) Lymph % (Auto) [place] % (Auto) Eos % (Auto) Baso % (Auto) PT 28.0 H INR 2.4 H Sodium Potassium Chloride Carbon Dioxide BUN Creatinine Estimated GFR BUN/Creatinine Ratio Glucose Calcium Total Bilirubin AST ALT Alkaline Phosphatase Total Protein Albumin Globulin Albumin/Globulin Ratio Lipase Urine RBC Urine WBC Ur Squamous Epith Cells Urine Bacteria Ur Culture Indicated? Micro UA Comment I have personally reviewed his CT scan of the abdomen and pelvis done at my request. Essentially the study was done to evaluate for possible complicated diverticulitis of the colon. However, findings are most consistent with acute appendicitis showing mesenteric stranding in the right lower quadrant, appendicoliths, and dilated appendix. No free air. No obvious abscess. Assessment & Plan Plan: Assessment/Plan Narrative: 82-year-old male with acute appendicitis. He has multiple comorbid medical conditions and is currently anticoagulated due to atrial fibrillation. Obviously, his INR will need to be reversed. In light of his need for urgent surgery I have recommended fresh frozen plasma infusion. Patient was agreeable to such. I would not recommend vitamin K since this may not be as rapidly effective and may also lead to difficulties with adequate anticoagulation when we restart his warfarin postoperatively. Once his INR is acceptable then we will plan to proceed at some point with laparoscopic appendectomy. Technical details of the procedure were discussed. Risks, benefits, alternatives were explained. Risks including but not limited to anesthesia, bleeding, infection, pain, scars, need to convert to open procedure, need for drains, appendiceal stump leak, colon injury, small bowel injury, ureter injury, bladder injury, intra-abdominal abscess, need for further surgery, need for further procedures such as interventional image guided drainage, cardiac event, and stroke while off anticoagulation were all discussed in detail. All questions were answered to his satisfaction, and he voiced understanding. Consent was placed on the chart. Orders were written. We will proceed as above. In the interim I will try to obtain further medical records from his primary physician.
--- NOTE | 2018-05-04 11:42 | PC.NURSE ---
Pt has been brought to the AC floor and made comfortable in room 222 at approx. 1140. He is A & O x 3. His pain to RLQ is 4/10 which is tollerable for him at this time. He has been oriented to the room. He supportive is at the bedside.
[2018-05-04] MEDS: PIPERACILLIN-TAZO 3.375 GM/50 ML FROZ.PIGGY IV ×2 (12:26→18:59)
[2018-05-04] MEDS: SODIUM CHLORIDE 0.9% 1,000 ML 100 ML IV (12:26)
[2018-05-04 16:24] LABS: Prothrombin Time 23.3 SECONDS (10.1-12.7)
[2018-05-04] MEDS: metroNIDAZOLE 500 MG/100 ML PIGGYBACK 100 MG IV (17:45)
[2018-05-05] VITALS (33 sets, daily range): BP systolic 105–131; BP diastolic 49–70; PULSE 81–105; RESP 10–18; TEMP 36.5–39.2; O2SAT 91–97; BMI 29.0
--- NOTE | 2018-05-05 | PATH_ITS ---
[facility] Accession Number: [id number] . 01 Material submitted: . APPENDIX . 02 Diagnosis: Appendix: Necrotizing acute appendicitis with apparent rupture. MRV/05/08/2018 . 02 Electronically signed: . Chris Toribio MD, Pathologist NPI- [id number] . 01 Gross description: . Received in formalin labeled Teja Nicolas and appendix is a 4.5 0.8 x 0.7 cm appendix. The serosa is majano-brown shaggy and congested. There is a transmural defect in the center, which is 0.6 x 0.6 x 0.3 cm. The defect is 1.6 cm from the cecal proximal margin. The stapled proximal margin is inked blue. There is additionally 1.5 cm of attached yellow-brown congested firm mesoappendix. Sectioning reveals a brown congested and slightly granular mucosa. The lumen ranges from pinpoint up to 0.3 cm in diameter. The wall averages 0.3 cm in thickness. [employer] sections are submitted as A1 to include the cecal margin, one-half of the tip and a section through the defect. ([id number]) /[facility] . 02 Pathologist provided ICD-10: K35.33 . 02 CPT . 531282 Performed at: [address] [facility] [address], [place], [place] [id number] MD Jose Armando Kern MD Phone: [phone] Performed at: 02 [facility] [address] [place], [place] [id number] MD Rahel Juarez MD Phone: [phone]
[2018-05-05] MEDS: metroNIDAZOLE 500 MG/100 ML PIGGYBACK 100 MG IV ×3 (01:48→20:41)
[2018-05-05] MEDS: HYDROMORPHONE 1 MG INJ IV (02:28)
[2018-05-05] MEDS: PIPERACILLIN-TAZO 3.375 GM/50 ML FROZ.PIGGY IV ×3 (03:10→22:57)
[2018-05-05] MEDS: ACETAMINOPHEN 325 MG TABLET 650 MG PO (05:27)
--- NOTE | 2018-05-05 05:29 | PC.NURSE ---
Addendum entered by Stephanie Wilson R.N. 05/05/18 06:54: At recheck pt's temp now 99.5. Original Note: Shift: At vital signs check, pt found to have a temp of 102.5. Gave pt 650mg Tylenol per MAR with a small sip of water for fever control. No other notable findings during shift.
[2018-05-05 05:50] LABS: INR 1.8 (0.9-1.3); Prothrombin Time 20.4 SECONDS (10.1-12.7)
--- NOTE | 2018-05-05 06:51 | PM.PREOP ---
Pre-operative Note Interval Note Pre-op Check: Yes History & Physical Reviewed by Physician and Yes Exam Performed Changes: No H&P completed within 30 days and has changed as indicated here:: Patient seen and examined this morning. No changes from yesterday H&P except INR now 1.8 after 4 units FFP. Proceed with appendectomy today as planned.
[2018-05-05] MEDS: LACTATED RINGERS 1,000 ML 42 ML IV ×2 (07:44→08:59)
[2018-05-05] MEDS: CEFOTETAN 2 GM/50 ML PIGGYBACK IV (07:50)
--- NOTE | 2018-05-05 08:00 | PC.NURSE ---
Addendum entered by Jason Torres R.N. 05/05/18 12:34: patient arrived back from pacu at 1155, easily arousable but mostly sleeping. returned w/ 6L per simple mask. sat 95%. snoring. vss. continuous pulse ox in place. drsg to abd cdi. jared drain patent and compressed, emptied of 40cc's serous/sang drainage. Original Note: 714: Patient off of unit; left for surgery w/ crew
[2018-05-05] MEDS: BUPIVACAINE 0.5% (PF) VIAL 30 ML INJ (08:44)
[2018-05-05] MEDS: LIDOCAINE 1% W/EPI INJ 20 ML INJ (08:45)
--- NOTE | 2018-05-05 10:26 | PM.OP.1 ---
Operative Date/Time/Diagnoses Date of procedure: 05/05/18 Time of procedure: 10:27 Pre-op diagnosis: Acute appendicitis Post-op diagnosis: other (Perforated appendicitis) Procedure & Clinicians Procedure: Attempted laparoscopic converted to open appendectomy Same procedure as scheduled: Yes Indications: 82-year-old male who presented yesterday with findings consistent with appendicitis. However, he is chronically anticoagulated on warfarin. He required IV fluid resuscitation and fresh frozen plasma infusion to partially normalize his INR from 2.4 to 1.8 this morning. At that point he was recommended to undergo laparoscopic appendectomy, possible open. Surgeon: Jose Perez Click Yes if Unassisted: Yes Anesthesia Type: General Operative Notes Findings: 1. Dense adhesions in the epigastric region consistent with prior open surgical repair of perforated gastric ulcer 2. Significant inflammatory changes in the right lower quadrant extending into the pelvis and involving the sigmoid colon including epiploic appendices 3. Perforated appendix just above the base with gross spillage of stool contained within dense phlegmon involving the sigmoid colon, cecum, and terminal ileum as above 4. No gross pus within the phlegmon Closure Type: primary Specimen(s): other (Appendix) Implants & Drains: Size 19 Suhas drain into the right lower quadrant and pelvis placed to bulb suction Applied: drain(s) (As above) Estimated Blood Loss (mL): 50 Blood products transfused: none Procedure in detail: After obtaining informed consent the patient was brought to the operating room placed supine on the table. After satisfactory induction of anesthesia a Jain catheter was inserted by co personally to decompress the urinary bladder. Abdomen was prepped and draped in usual sterile fashion. SCOAP time out was performed per standard protocol. A 1 :1 mixture 1% lidocaine with 1: 100,000 epinephrine and 0.5% plain Marcaine was injected in the skin and subcutaneous tissue at the superior aspect of the umbilicus for postoperative analgesia. Vertical midline incision was created to superior aspect of the umbilicus for a distance of approximately 2 cm with 11 scalpel blade. Blunt dissection revealed the rectus fascia which was divided in the midline with 11 scalpel blade and secured with Jesus clamps bilaterally. Fascia was elevated into the operative field and secured superiorly and inferiorly with interrupted 0 Vicryl suture. Underlying peritoneum was entered under direct visualization with Matilda clamp. A blunt 12 mm Ramon trocar was inserted and a carbon dioxide pneumoperitoneum was created. Abdomen was visually explored with a 30 degree 5 mm laparoscope. Findings are as above. Under direct laparoscopic visualization to individual 5 mm trocars were placed in the left lower quadrant. Natalia graspers were used to manipulate the cecum and terminal ileum in an effort to open up the inflamed tissue planes and identified the appendix. The tip of the appendix could not be visualized as it was punching deep into the pelvis throughout the phlegmon. No gross pus was encountered. However, the midportion of the appendix appeared to be perforated with gross stool having been spilled within the phlegmon. Despite multiple attempts at mobilizing the appendix I was unable to separate all of the dense inflammatory acute adhesions from the appendix and the adjacent loops of intestine, especially the terminal ileum and sigmoid colon. I therefore elected to convert to open procedure. Laparoscopic instruments were removed and trocars removed. Carbon dioxide was evacuated. Transverse right lower quadrant incision was created over McBurney's point with 10 scalpel blade. Bovie was used to achieve hemostasis and carried the dissection down through the subcutaneous tissue to the external oblique fascia and the rectus fascia. External oblique fascia was opened transversely and the fibers were split bluntly. Rectus fascia was opened just at its medial aspect and the rectus muscle was retracted medially to provide exposure. Underlying internal oblique and transversalis fascia were divided transversely and the peritoneum was entered under direct visualization. Cecum was readily identified. Exposure was achieved with Abraham and [place] retractors. Meticulous blunt dissection mostly with the surgeon's fingers were employ to elevate the ruptured appendix into the operative field while disrupting the inflammatory adhesions and phlegmon. Debris was suctioned from the abdomen. Great care was taken avoid injury to adjacent structures, including the bowel. Again, no gross pus or yelitza abscess was encountered. The mesoappendix was identified and taken down between right angle clamps. Appendiceal vessels were secured with combination of 0 silk ties and hemoclips. Base of the appendix below the area that was ruptured was then identified and crossclamped with 2 right angle clamps. Hemostat was placed proximally and the appendix was divided and passed off the table for permanent specimen. Appendiceal stump was cauterized and then secured with 2 separate 0 silk ties. Stump was then imbricated into the cecum with 2 separate 0 chromic sutures. Area was irrigated and noted to be hemostatic. Further palpation revealed that the phlegmon had been completely opened and there were no other undrained cavities or other evidence of pathology. Abdomen was then irrigated with copious amounts of sterile saline solution of 1-2 L in volume. Irrigant was suctioned and noted to be clear. Suture lines were again examined and noted to be intact and no evidence of leakage or hemorrhage. Suhas drain was brought through a separate stab incision in the lower quadrant and placed into the phlegmon cavity as well as the pelvis. Drain was secured to the skin with 2 0 nylon stitch. Drain was cut to size and attached to bulb suction. After verifying hemostasis the peritoneum was closed with running 0 Vicryl suture. Transversalis fascia and internal oblique fascia were closed with 0 PDS suture. 0 PDS suture was also used to close the external oblique fascia and the medial aspect of the anterior rectus sheath that had been opened minimally. Wound was irrigated with copious amounts of sterile saline solution between each layer of closure. Subcutaneous tissue was also irrigated and noted to be hemostatic. Skin was closed with vincent. Fascia at the umbilical site was closed with the 0 Vicryl suture. Skin at the remaining 3 laparoscopic incisions was closed in a subcuticular fashion with running 4 0 Monocryl suture. Dermal adhesive was applied to the laparoscopic incisions. Gauze was applied to the drain site as well as the right lower quadrant incision. Jain catheter was removed at the conclusion of the case. Anesthesia was reversed and patient extubated in the operating room. He was taken recovery stable condition. Complications: none Condition: stable Disposition: PACU Plan for aftercare: 1. Return to regular surgical floor for ongoing convalescence and intravenous antibiotics
[2018-05-05] MEDS: HYDROMORPHONE 0.5 MG INJ IV ×4 (10:40→11:00)
[2018-05-05] MEDS: LORazepam 2 MG/ML SYRINGE 0.5 MG IV (11:10)
--- NOTE | 2018-05-05 11:16 | SUR.PHASEI ---
PACU stay with problems of oxygen saturation and pain control. In giving analgesics concern for further deterioration of sats with has not been realized, as well as concern for resp depression with rate not compromised. Pain control addressed with Dilaudid 2mg total (used for amplitude of pain) and Lorazepam 0.5mg total (used for report of spasm like pain). Following stable VS will transfer to floor with O2 for further pain control prn.
[2018-05-05] MEDS: LACTATED RINGERS 1,000 ML 84 ML IV (12:10)
[2018-05-05] MEDS: HYDROMORPHONE PCA 6 MG/30 ML PCA.VIAL IV ×2 (12:28→22:57)
--- NOTE | 2018-05-05 15:05 | CM.DPC ---
Discharge Planning/Care Management DCP: assessment: case received, EMR reviewed and went to room this morning, 0900 to check in with pt. Pt's Fareed was in room, pt was in surgery. Introduced self and role. Pt is an 82 year old male who lives with his Fareed on [facility]. PCP: Dr. Smalls: [facility] Payer: Medicare and [facility] admission status: INPT: confirmed by UR RN Jose Armando. Pt admitted to care of Dr. Perez/[facility] yesterday. He was taken to surgery for acute appendicitis. Review now of OP report shows that dx post op was a perforated appendix and a convert of the surgery from laproscopic to open. Pt will return to the floor from PACU to continue recovery and ongoing IV antbiotics. Fareed notes pt does carry dx of Polymyalgia Rheumatica and is chronically on methatrexate. Brief discussion held with Fareed re the d/c options available with pt's Medicare coverage. P: follow as POC unfolds to assist with the d/c plan. Anticipate PT/OT will be involved when pt is stable enough for therapy. CM Discharge Assessment Start: 05/05/18 14:47 Freq: Status: Active Protocol: Document 05/05/18 15:02 ITV (Rec: 05/05/18 15:05 ITV [id number]) Discharge Planning Assessment Advance Directives? Yes History Provided By Family Member Medical Record Prior Living Arrangements House Household Members spouse other DME Already Rented / Owned Cane Comment functionally independent with occ use of cane. per Fareed , overall ability to move easily is impacted by pt's pain/PMR. worse in the winter . Whiteboard Updated in Patient Room with Yes name and ext. # of Corporate Associate Attorney Review Status In Process Next Review Type Continued Stay Review
[2018-05-05] MEDS: TAMSULOSIN 0.4 MG CAPSULE PO (17:36)
[2018-05-05] MEDS: AMLODIPINE 5 MG TABLET PO (17:36)
[2018-05-05] MEDS: ALLOPURINOL 300 MG TABLET PO ×2 (20:39→20:48)
[2018-05-05] MEDS: SOTALOL 80 MG TABLET 40 MG PO (20:42)
[2018-05-05] MEDS: FOSINOPRIL 10 MG TABLET 20 MG PO (20:42)
[2018-05-06] VITALS (11 sets, daily range): BP systolic 122–139; BP diastolic 61–80; PULSE 77–86; RESP 16–18; TEMP 36.6–37; O2SAT 89–97
[2018-05-06] MEDS: LACTATED RINGERS 1,000 ML 84 ML IV ×2 (03:40→18:59)
[2018-05-06] MEDS: metroNIDAZOLE 500 MG/100 ML PIGGYBACK 100 MG IV ×3 (03:40→20:51)
[2018-05-06 05:38] LABS: Hematocrit 37.2 % (41-53); Hemoglobin 12.7 g/dL (13.5-17.5); Lymphocytes Percent Auto 2.9 % (25-40); Mean Corpuscular Hemoglobin 32.5 PG (26-34); Mean Corpuscular Volume 95.5 fL (80-100); Monocytes Percent Auto 5.7 % (3-14); Neutrophils Percent Auto 91.2 % (50-75); Platelet Count 195 X10^3/uL (150-400); Red Cell Distribution Width 15.6 % (11.6-14.8); White Blood Cell Count 16.9 X10^3/uL (4.5-11.0)
[2018-05-06 05:39] LABS: Add Manual Diff / Slide Review NO; Basophils Percent Auto 0.2 % (0-2); Neutrophils Absolute Auto 15400 /uL (1500-7000)
[2018-05-06 05:41] LABS: INR 1.8 (0.9-1.3); Prothrombin Time 21.1 SECONDS (10.1-12.7)
[2018-05-06 05:46] LABS: BUN Creatinine Ratio 26.3 (6-22); Blood Urea Nitrogen 21 mg/dL (9-20); Calcium 8.2 mg/dL (8.4-10.2); Carbon Dioxide 27 mmol/L (22-32); Chloride 97 mmol/L (98-107); Estimated Glomerular Filt Rate > 60.0 mL/min (>60); Glucose 198 mg/dL (80-110); HEMOLYSIS < 15 (0-50); Potassium 3.8 mmol/L (3.4-5.1); Sodium 134 mmol/L (137-145)
[2018-05-06] MEDS: HYDROMORPHONE PCA 6 MG/30 ML PCA.VIAL IV ×2 (06:00→22:40)
[2018-05-06] MEDS: PIPERACILLIN-TAZO 3.375 GM/50 ML FROZ.PIGGY IV ×3 (06:01→22:40)
--- NOTE | 2018-05-06 08:42 | CM.DPNOTE ---
Received vm this morning, left last evening, from pt's spouse. She requests that any medication needed at d/c be faxed to [facility] [address]. Will follow prn and pass on info accordingly.
[2018-05-06] MEDS: FINASTERIDE 5 MG TABLET PO (10:22)
[2018-05-06] MEDS: SOTALOL 80 MG TABLET 40 MG PO ×2 (10:22→20:51)
[2018-05-06] MEDS: FOSINOPRIL 10 MG TABLET 20 MG PO ×2 (10:23→20:51)
[2018-05-06] MEDS: PANTOPRAZOLE 40 MG VIAL IV (10:24)
[2018-05-06] MEDS: ENOXAPARIN 40 MG/0.4 ML SYRINGE SUBCUT (10:24)
[2018-05-06] MEDS: AMLODIPINE 5 MG TABLET PO (16:49)
[2018-05-06] MEDS: TAMSULOSIN 0.4 MG CAPSULE PO (16:49)
--- NOTE | 2018-05-06 17:54 | P.PN_ITS ---
Subjective Date Patient Seen: 05/06/18 Time Patient Seen: 17:52 Interval history: Postop day 1 after open appendectomy for perforated appendicitis with abscess. Mr. Gage is doing remarkably well. He reports his pain is minimal and very well controlled. He is only taking clear liquids and he has had a couple of episodes of nausea today without emesis. He is not hungry. He is concerned about his methotrexate for polymyalgia rheumatica. It would have been due today. He is not sure if he has passed any flatus but he does not think so. He is definitely not had a bowel movement. Exam Vital Signs (past 8 hours): - 05/06/18 12:00 05/06/18 15:35 05/06/18 16:00 Temperature 98.4 F 98.4 F Pulse Rate 84 82 Respiratory Rate 18 18 Blood Pressure 122/67 129/70 Pulse Oximetry 93 93 93 Oxygen Delivery Method Room Air Oxygen Flow Rate 2 Narrative Exam Narrative: Lungs: Essentially clear bilaterally Heart: Regular rate and rhythm without murmur rub or gallop Abdomen: Soft, appropriately tender to palpation, active bowel sounds. Dressings are dry and in place in the lower abdomen. KENNETH drain is draining serosanguineous fluid. Extremities: Warm and well perfused Objective Labs Result Diagrams: 05/06/18 05:02 05/06/18 05:02 Labs: Laboratory Results - last 24 hr 05/06/18 05/06/18 05/06/18 05:02 05:02 05:02 WBC 16.9 H RBC 3.90 L Hgb 12.7 L Hct 37.2 L MCV 95.5 MCH 32.5 MCHC 34.0 RDW 15.6 H Plt Count 195 Neut % (Auto) 91.2 H Lymph % (Auto) 2.9 L [place] % (Auto) 5.7 Eos % (Auto) 0.0 L Baso % (Auto) 0.2 Neut # (Auto) 56830 H PT 21.1 H INR 1.8 H Sodium 134 L Potassium 3.8 Chloride 97 L Carbon Dioxide 27 BUN 21 H Creatinine 0.80 Estimated GFR > 60.0 BUN/Creatinine Ratio 26.3 H Glucose 198 H Calcium 8.2 L Assessment & Plan Plan: Assessment/Plan Narrative: Postop day 1 after open appendectomy for perforated appendicitis with abscess. We will continue Zosyn. Leave on clear liquids for now but we can hopefully advance diet when nausea resolves. Hold methotrexate as it is a mild immunosuppressant and we could be quite dangerous in the setting of acute infection. We will plan to recheck labs on Tuesday Quality VTE Deep Vein Thrombosis/Pulmonary Embolism Present on Admission: No
[2018-05-06] MEDS: ALLOPURINOL 300 MG TABLET PO (20:51)
[2018-05-07] VITALS (8 sets, daily range): BP systolic 107–155; BP diastolic 62–96; PULSE 71–76; RESP 18–22; TEMP 36.6–36.8; O2SAT 90–95
[2018-05-07] MEDS: metroNIDAZOLE 500 MG/100 ML PIGGYBACK 100 MG IV ×3 (04:12→20:21)
[2018-05-07] MEDS: PIPERACILLIN-TAZO 3.375 GM/50 ML FROZ.PIGGY IV ×3 (06:08→21:43)
[2018-05-07] MEDS: HYDROMORPHONE PCA 6 MG/30 ML PCA.VIAL IV ×2 (06:08→12:54)
[2018-05-07] MEDS: FINASTERIDE 5 MG TABLET PO (08:43)
[2018-05-07] MEDS: SOTALOL 80 MG TABLET 40 MG PO ×2 (08:43→20:27)
[2018-05-07] MEDS: FOSINOPRIL 10 MG TABLET 20 MG PO ×2 (08:43→20:26)
[2018-05-07] MEDS: ENOXAPARIN 40 MG/0.4 ML SYRINGE SUBCUT (08:45)
[2018-05-07] MEDS: PANTOPRAZOLE 40 MG VIAL IV (08:46)
[2018-05-07] MEDS: LACTATED RINGERS 1,000 ML 84 ML IV (10:03)
--- NOTE | 2018-05-07 11:15 | PC.NURSE ---
Day Shift- Report given to BLS transport at 1105. Pt's daughter Laila in pt's room. Gave discharge packet and reviewed medications, aware medications may change after Hospice admit in home today. Pt left unit via BLS stretcher at 1115 in no distress with all belongings per his daughter Laila.
[2018-05-07 11:17] LABS: Add Manual Diff / Slide Review NO; Basophils Percent Auto 0.7 % (0-2); Eosinophils Percent Auto 0.1 % (2-4); Hemoglobin 11.9 g/dL (13.5-17.5); Lymphocytes Percent Auto 5.6 % (25-40); Mean Corpuscular HGB Conc 33.9 % (30-36); Mean Corpuscular Hemoglobin 32.3 PG (26-34); Mean Corpuscular Volume 95.1 fL (80-100); Monocytes Percent Auto 8.8 % (3-14); Neutrophils Absolute Auto 11100 /uL (1500-7000); Neutrophils Percent Auto 84.8 % (50-75); Platelet Count 247 X10^3/uL (150-400); Red Blood Cell Count 3.68 X10^6/uL (4.5-5.9); Red Cell Distribution Width 15.6 % (11.6-14.8); White Blood Cell Count 13.1 X10^3/uL (4.5-11.0)
[2018-05-07 11:29] LABS: BUN Creatinine Ratio 27.1 (6-22); Blood Urea Nitrogen 19 mg/dL (9-20); Calcium 8.2 mg/dL (8.4-10.2); Carbon Dioxide 30 mmol/L (22-32); Chloride 100 mmol/L (98-107); Estimated Glomerular Filt Rate > 60.0 mL/min (>60); Glucose 140 mg/dL (80-110); HEMOLYSIS < 15 (0-50); Potassium 3.6 mmol/L (3.4-5.1); Sodium 137 mmol/L (137-145)
--- NOTE | 2018-05-07 11:53 | PM.PN.1 ---
Subjective Date Patient Seen: 05/07/18 Time Patient Seen: 11:53 Interval history: Matthew is in good spirits today. He is out of bed and sitting in the chair. He reports he is very hungry. He has passed a great deal of flatus. Still having some pain but he says it is reasonably well controlled. Exam Vital Signs (past 8 hours): - 05/07/18 05:10 05/07/18 07:40 05/07/18 08:00 Temperature 97.8 F 98.2 F Pulse Rate 74 75 Respiratory Rate 18 18 Blood Pressure 107/62 137/67 Pulse Oximetry 92 93 93 Oxygen Delivery Method Room Air Oxygen Flow Rate 0 Narrative Exam Narrative: Lungs: clear bilaterally Heart: Regular rate and rhythm Abdomen: Soft, appropriately tender to palpation, active bowel sounds. Drain is minimal and serous in character Extremities: Warm and well perfused Objective Labs Result Diagrams: 05/07/18 11:10 05/07/18 11:10 Labs: Laboratory Results - last 24 hr 05/07/18 05/07/18 11:10 11:10 WBC 13.1 H RBC 3.68 L Hgb 11.9 L Hct 35.0 L MCV 95.1 MCH 32.3 MCHC 33.9 RDW 15.6 H Plt Count 247 Neut % (Auto) 84.8 H Lymph % (Auto) 5.6 L [place] % (Auto) 8.8 Eos % (Auto) 0.1 L Baso % (Auto) 0.7 Neut # (Auto) 47686 H Sodium 137 Potassium 3.6 Chloride 100 Carbon Dioxide 30 BUN 19 Creatinine 0.70 Estimated GFR > 60.0 BUN/Creatinine Ratio 27.1 H Glucose 140 H Calcium 8.2 L Assessment & Plan Plan: Assessment/Plan Narrative: Continued progress. We will advance his diet and switch him to oral pain medications. Leave the drain in place for now. If he does well overnight and is afebrile, we will consider discharge in the morning. I would like his white blood cell count to be in the range of 10 for switching him to oral medications due to the severity of his original problem. Quality VTE Deep Vein Thrombosis/Pulmonary Embolism Present on Admission: No
[2018-05-07] MEDS: OXYCODONE IR 5 MG TABLET PO ×4 (12:47→23:57)
--- NOTE | 2018-05-07 15:28 | PC.NURSE ---
Day Shift- Pt OX4, pleasant & cooperative, making jokes, able to make needs known using call light. Transitioned from PROGRAM CHECKER Dilaudid to po Oxycodone prn that was last given at 1250. Pt's pain went from 4/10 to 3-4/10 to lower abd. RLQ abd dressing CDI with jared drain present to bulb suction. Output was approx 15mls of sero-sang fluid. Plan was to perform teaching with pt and his regarding drain care. However Dr. Francisco stated that drain may be removed tomorrow, no hands-on teaching done at this time. Pt OOB to chair for most of shift, enc ambulation with staff this evening. No other voiced concerns, tolerating regular diet, no nausea, passing flatus, no BM today.
[2018-05-07] MEDS: TAMSULOSIN 0.4 MG CAPSULE PO (16:06)
[2018-05-07] MEDS: AMLODIPINE 5 MG TABLET PO (16:06)
[2018-05-07] MEDS: ALLOPURINOL 300 MG TABLET PO (20:26)
[2018-05-07] MEDS: SODIUM CHLORIDE 0.9% FLUSH 10 ML IV (20:26)
[2018-05-07] MEDS: MAGNESIUM HYDROXIDE 30 ML UDC PO (22:49)
[2018-05-07] MEDS: SIMETHICONE 80 MG TABLET PO (23:55)
[2018-05-08] VITALS (10 sets, daily range): BP systolic 123–153; BP diastolic 7–75; PULSE 75–84; RESP 15–18; TEMP 36.4–36.9; O2SAT 92–100
--- NOTE | 2018-05-08 01:12 | PC.NURSE ---
C/O back pain & gas pain/ bloating, medicated with 80 mg. Simethicon. Also C/O back pain 5 mg. of Percolone admin. Ambulated in the hallway & back to bed. Pt. asleep now will cont. POC & monitor.
[2018-05-08] MEDS: OXYCODONE IR 5 MG TABLET PO ×6 (04:00→22:40)
[2018-05-08] MEDS: metroNIDAZOLE 500 MG/100 ML PIGGYBACK 100 MG IV (04:01)
[2018-05-08] MEDS: SODIUM CHLORIDE 0.9% FLUSH 10 ML IV ×3 (04:02→21:20)
[2018-05-08] MEDS: PIPERACILLIN-TAZO 3.375 GM/50 ML FROZ.PIGGY IV ×3 (05:29→21:20)
--- NOTE | 2018-05-08 07:25 | PM.PN.1 ---
Subjective Date Patient Seen: 05/08/18 Time Patient Seen: 07:25 Interval history: Patient complaining of some low back pain that he feels is likely due to abdominal cramping. States that he is experiencing diffuse cramping which is then relieved when he passes flatus. However, he has not had a bowel movement. He did tolerate his regular diet yesterday. In fact, he states that he feels that he over 8 to some extent. No nausea or vomiting. He is also complaining of some dysuria but no hematuria. No subjective fever or chills. Denies chest pain or shortness of breath. His pain is well controlled. Exam Vital Signs (past 8 hours): - 05/08/18 00:00 05/08/18 01:00 05/08/18 04:18 Temperature 97.6 F 98.4 F Pulse Rate 84 79 Respiratory Rate 16 16 Blood Pressure 147/71 H 152/75 H Pulse Oximetry 94 95 92 Oxygen Delivery Method Room Air Oxygen Flow Rate 0 Narrative Exam Narrative: Well-nourished well-developed male lying comfortably in bed in no acute distress. Alert oriented x3. His is at the bedside for my entire visit. Chest clear to auscultation bilaterally with irregular rhythm. No crackles or wheezes. No tachycardia. Abdomen is mildly distended but not tympanitic. He does have bowel sounds throughout. Wound is clean, dry, and intact. No erythema or ecchymoses. Drain output is serosanguineous only. Drain output is minimal. Extremities show no clubbing or cyanosis Objective Labs Result Diagrams: 05/07/18 11:10 05/07/18 11:10 Labs: Laboratory Results - last 24 hr 05/07/18 05/07/18 11:10 11:10 WBC 13.1 H RBC 3.68 L Hgb 11.9 L Hct 35.0 L MCV 95.1 MCH 32.3 MCHC 33.9 RDW 15.6 H Plt Count 247 Neut % (Auto) 84.8 H Lymph % (Auto) 5.6 L [place] % (Auto) 8.8 Eos % (Auto) 0.1 L Baso % (Auto) 0.7 Neut # (Auto) 07133 H Sodium 137 Potassium 3.6 Chloride 100 Carbon Dioxide 30 BUN 19 Creatinine 0.70 Estimated GFR > 60.0 BUN/Creatinine Ratio 27.1 H Glucose 140 H Calcium 8.2 L No new laboratory or radiographic studies for review. Assessment & Plan Plan: Assessment/Plan Narrative: 82-year-old male postoperative day 3 from open appendectomy for perforated appendicitis who overall is doing well. Continue regular diet. He may shower. Continue the drain. I suspect he will be discharged home in the next day or 2 with the drain in place. I would plan to remove it in the office later this week. Patient's and the patient himself still require drain education. Check urinalysis given the patient's urinary symptoms. Assist bowel function. Restart his usual home medications including anticoagulation. Check CBC, basic metabolic panel, and protime tomorrow. If he is stable within the next 1-2 days and he could be discharged home on antibiotics to complete a full course orally. I discussed this with him in detail. All questions were answered to his satisfaction, and he voiced understanding. Orders were written. Quality VTE Deep Vein Thrombosis/Pulmonary Embolism Present on Admission: No
[2018-05-08] MEDS: hydroCHLOROthiazide 25 MG TABLET PO (08:31)
[2018-05-08] MEDS: FINASTERIDE 5 MG TABLET PO (08:31)
[2018-05-08] MEDS: LACTULOSE 20 GM/30 ML SOLUTION PO (08:31)
[2018-05-08] MEDS: POTASSIUM CHLORIDE 20 MEQ TAB PO (08:31)
[2018-05-08] MEDS: ENOXAPARIN 40 MG/0.4 ML SYRINGE SUBCUT (08:31)
[2018-05-08] MEDS: FOSINOPRIL 10 MG TABLET 20 MG PO ×2 (08:31→21:20)
[2018-05-08] MEDS: SOTALOL 80 MG TABLET 40 MG PO ×2 (08:41→21:21)
--- NOTE | 2018-05-08 10:14 | PC.NURSE ---
Addendum entered by Mireille Gold R.N. 05/08/18 14:04: pt c/o back pain, has been sitting up in chair ambulated to bathroom had loose stool did receive lactulose this morning, medicated per emar and assisted pt back to bed. Original Note: Day shift Pt is A&O forgetful at times and [place] but able to make needs known. Clean catch UA collected and sent to lab, Pt reports pain to abd/back medicated per emar. abdomen is soft distended and + flatus received lactulose as ordered. pt declines to get up after breakfast states I just don't have the energy right now pt educated on need to move and ambulate and shower agreed after nap. Pt's abdomen incision well approximated with vincent and jared drain in place no s/sx of infection. Call light within reach bed alarm and at bedside.
[2018-05-08 10:16] LABS: Bacteria Urine None Seen; RBC Urine None Seen (0-5/HPF); WBC Urine None Seen (0-5/HPF)
[2018-05-08 10:18] LABS: Appearance Urine UA CLEAR; Bilirubin Urine UA NEGATIVE (NEGATIVE); Color Urine UA YELLOW; Glucose Urine UA TRACE g/dL (Negative); Ketones Urine UA NEGATIVE (NEGATIVE); Leukocyte Esterase Urine UA NEGATIVE (NEGATIVE); Nitrite Urine UA NEGATIVE (Negative); Occult Blood Urine UA NEGATIVE (Negative); Protein Urine UA NEGATIVE (Negative); Specific Gravity Urine UA 1.015 (1.000-1.035); Urobilinogen Urine UA 0.2 E.U./dL (0.2); pH Urine UA 7.5 (4.5-8.0)
--- NOTE | 2018-05-08 10:27 | CM.DPC ---
DCP Cont: Met briefly with patient's spouse who was in the room, Fareed. They live on [facility]. She stated that the only concern that she has is patient getting out of bed with his drain. She feels confident that she can manage drain at home with teaching. She stated that her is independent at home, has not used a walker in the past. Also stated that there are no stairs in the home. She stated he could possibly go home today. Placed this case repairer's name on board should the spouse have any additional questions at discharge. P: DCP to continue to follow and offer any additional resources that patient may need. Fatou Espana RN/Instrumentation Engineering Technician
[2018-05-08 10:32] LABS: Culture Indicated Urine Cult Not Indicated; Urine Comments Microscopic Normal
[2018-05-08] MEDS: WARFARIN 2.5 MG TABLET PO (16:33)
[2018-05-08] MEDS: AMLODIPINE 5 MG TABLET PO (16:33)
[2018-05-08] MEDS: TAMSULOSIN 0.4 MG CAPSULE PO (16:34)
[2018-05-08] MEDS: LOVASTATIN 20 MG TABLET 40 MG PO (16:34)
[2018-05-08] MEDS: SODIUM CHLORIDE 0.9% 250 ML 21 ML IV (21:20)
[2018-05-08] MEDS: ALLOPURINOL 300 MG TABLET PO (21:21)
--- NOTE | 2018-05-08 21:51 | PC.NURSE ---
1500- assumed care of pt. pt and awake and alert. cooperative with bedside report. no further questions at this time. Pt did ambulate before dinner. walked around [employer] nurse station twice. did very well. pt states he is just very uncomfortable. initially pt didn't want any dinner because he was so distraught about stooling so much today. pt ate his orange sorbet, and then did eat some of his food. Pt helpful. pt walked with walker. discussed drain management with pt. pt did teaching to with me at bedside. pt did well and had no questions. did discuss measuring the output. noting any color or odor change. Pt stated, oh those are very helpful hints, thanks so much pt takes his pain med around the clock. states if he doesn't then it gets to be a 6 which is intolerable for the pt.
[2018-05-09] VITALS (9 sets, daily range): BP systolic 125–165; BP diastolic 62–78; PULSE 70–87; RESP 16–20; TEMP 36.4–36.9; O2SAT 93–96
[2018-05-09] MEDS: OXYCODONE IR 5 MG TABLET PO ×7 (02:03→23:53)
[2018-05-09] MEDS: PANTOPRAZOLE 40 MG TABLET PO (04:57)
[2018-05-09] MEDS: PIPERACILLIN-TAZO 3.375 GM/50 ML FROZ.PIGGY IV ×3 (05:14→22:17)
[2018-05-09 05:27] LABS: Add Manual Diff / Slide Review NO; Basophils Percent Auto 0.6 % (0-2); Hematocrit 35.9 % (41-53); Hemoglobin 12.2 g/dL (13.5-17.5); Mean Corpuscular HGB Conc 33.9 % (30-36); Mean Corpuscular Hemoglobin 32.2 PG (26-34); Mean Corpuscular Volume 94.9 fL (80-100); Monocytes Percent Auto 9.7 % (3-14); Neutrophils Absolute Auto 8700 /uL (1500-7000); Neutrophils Percent Auto 79.7 % (50-75); Platelet Count 292 X10^3/uL (150-400); Red Blood Cell Count 3.78 X10^6/uL (4.5-5.9); Red Cell Distribution Width 15.4 % (11.6-14.8); White Blood Cell Count 10.9 X10^3/uL (4.5-11.0)
[2018-05-09 05:29] LABS: INR 1.6 (0.9-1.3); Prothrombin Time 18.7 SECONDS (10.1-12.7)
[2018-05-09 05:32] LABS: BUN Creatinine Ratio 21.4 (6-22); Blood Urea Nitrogen 15 mg/dL (9-20); Calcium 8.3 mg/dL (8.4-10.2); Carbon Dioxide 29 mmol/L (22-32); Chloride 98 mmol/L (98-107); Estimated Glomerular Filt Rate > 60.0 mL/min (>60); Glucose 118 mg/dL (80-110); HEMOLYSIS < 15 (0-50); Potassium 3.4 mmol/L (3.4-5.1); Sodium 134 mmol/L (137-145)
[2018-05-09] MEDS: FOSINOPRIL 10 MG TABLET 20 MG PO ×2 (08:47→20:36)
[2018-05-09] MEDS: ENOXAPARIN 40 MG/0.4 ML SYRINGE SUBCUT (08:47)
[2018-05-09] MEDS: POTASSIUM CHLORIDE 20 MEQ TAB PO (08:48)
[2018-05-09] MEDS: SOTALOL 80 MG TABLET 40 MG PO ×2 (08:48→20:36)
[2018-05-09] MEDS: FINASTERIDE 5 MG TABLET PO (08:48)
[2018-05-09] MEDS: hydroCHLOROthiazide 25 MG TABLET PO (08:48)
[2018-05-09] MEDS: SODIUM CHLORIDE 0.9% FLUSH 10 ML IV ×3 (08:49→22:19)
[2018-05-09] MEDS: ACETAMINOPHEN 325 MG TABLET 650 MG PO (10:37)
--- NOTE | 2018-05-09 11:01 | P.PN_ITS ---
Subjective Date Patient Seen: 05/09/18 Time Patient Seen: 10:59 Interval history: Mr. Gage reports his belly is feeling a little better but his back is killing him today. He says the pain is in the lower portion of his back and he is having difficulty even standing. Continues to pass flatus and denies nausea Exam Vital Signs (past 8 hours): - 05/09/18 04:05 05/09/18 08:00 05/09/18 10:29 Temperature 98.1 F 98.1 F Pulse Rate 81 73 Respiratory Rate 16 18 Blood Pressure 142/72 H 132/66 Pulse Oximetry 93 94 95 Oxygen Delivery Method Room Air Oxygen Flow Rate 0 Narrative Exam Narrative: Uncomfortable appearing gentleman. He is sitting in a chair at the bedside and he is grimacing with pain. Abdomen is soft. Active bowel sounds. Incision is clean dry and well approximated. Lungs: Clear bilaterally Objective Labs Result Diagrams: 05/09/18 05:09 05/09/18 05:09 Labs: Laboratory Results - last 24 hr 05/09/18 05/09/18 05/09/18 05:09 05:09 05:09 WBC 10.9 RBC 3.78 L Hgb 12.2 L Hct 35.9 L MCV 94.9 MCH 32.2 MCHC 33.9 RDW 15.4 H Plt Count 292 Neut % (Auto) 79.7 H Lymph % (Auto) 7.0 L [place] % (Auto) 9.7 Eos % (Auto) 3.0 Baso % (Auto) 0.6 Neut # (Auto) 8700 H PT 18.7 H INR 1.6 H Sodium 134 L Potassium 3.4 Chloride 98 Carbon Dioxide 29 BUN 15 Creatinine 0.70 Estimated GFR > 60.0 BUN/Creatinine Ratio 21.4 Glucose 118 H Calcium 8.3 L Assessment & Plan Plan: Assessment/Plan Narrative: 1. From a surgical perspective, he is improving and doing well. We will leave him on Zosyn for now. His white blood cell count is down nicely. 2. Lumbar muscle spasms. I will consult PT and add a muscle relaxer. 3. K-pad or heating pad to lower back as desired. Quality VTE Deep Vein Thrombosis/Pulmonary Embolism Present on Admission: No
--- NOTE | 2018-05-09 11:03 | CM.DPC ---
DCP Cont: Spoke to Dr. Francisco about patient today. Let her know that patient would benefit from physical therapy before discharge, for he is having trouble getting out of bed, and feels that patient needs a walker. She agreed, stated, his back has been bothering him. Dr. Francisco stated that she would put orders in. P: DCP to follow closely. Plan is still for home, will see how he does with physical therapy. Fatou Espana RN/Clinical Law Professor
[2018-05-09] MEDS: CARISOPRODOL 350 MG TABLET PO ×2 (12:29→20:35)
--- NOTE | 2018-05-09 15:33 | PT.IIE ---
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 (05/04/18) Surgery Performed Operation Date: 05/05/18 07:20 Actual Procedures p Laparoscopic Appendectomy converted to Open Appendectomy - Jose Perez MD Surgical History (Last Reviewed 05/04/18 @ 11:19 by Jose Perez MD) History of laparotomy (Acute) Medical History (Last Updated 05/04/18 @ 11:20 by Jose Perez MD) Atrial fibrillation (Acute) Cholelithiasis (Acute) Chronic anticoagulation (Acute) Gout (Acute) History of gastric ulcer (Acute) History of tobacco use (Acute) Hyperlipidemia (Acute) Hypertension (Acute) Obesity (Acute) Polymyalgia rheumatica (Acute) Physical Therapy Inpatient Evaluation/Re-Eval M1 PT/OT-IP Prior Functional Status Start: 05/09/18 15:21 Freq: NEEDED Status: Active Protocol: Document 05/09/18 15:21 [facility] (Rec: 05/09/18 15:33 [facility] [id number]) Medical Review Prior Functional Status Medical History Reviewed Yes Diet/Fluid Consistency Regular Communication WNL Mobility and Gait indep without AD Activities of Daily Living and IADL's indep with ADLs Social History Household Members spouse other Living Arrangements House Number of Floors (Floors) One Floor Number of Stairs To Enter/Railing? 2 [place] no rail Home Environment Standard Height Toilet Walk in Shower Home Equipment Grab Bars In Shower Employment Status Retired Additional Social History Comment after discussion plans to get pt a walker to be able to help him up and down stairs & up/down from toilet & shower chair. Pt given measurements for appropriate heights. M2 PT-IP Current Condition Start: 05/09/18 15:21 Freq: NEEDED Status: Active Protocol: Document 05/09/18 15:21 [facility] (Rec: 05/09/18 15:33 [facility] [id number]) Physical Therapy Current Condition Current Condition Evaluation Date 05/09/18 Treatment Diagnosis s/p appendectomy 05/05 Precautions Abdominal Surgery Precautions Log Roll Lifting Restrictions Gait Belt above Incisional Area Weight Bearing Status Weight Bearing Status Full Weight Bearing M3 PT-IP Subjective Start: 05/09/18 15:21 Freq: NEEDED Status: Active Protocol: Document 05/09/18 15:21 [facility] (Rec: 05/09/18 15:33 [facility] [id number]) Subjective Physical Therapy Visit Type Type Initial Evaluation Visit Start Time 14:25 Visit Stop Time 15:18 Total Visit Minutes 53 Number of AUTOMOTIVE PARTS COUNTER ASSISTANT Visits 0 Therapy Pain Assessment Pain Present Pain Present Denied Pain M4 PT-IP Mobility and Gait Start: 05/09/18 15:21 Freq: NEEDED Status: Active Protocol: Document 05/09/18 15:21 [facility] (Rec: 05/09/18 15:33 [facility] [id number]) PT-Bed Mobility Assessment Rolling Type of Rolling Log Rolling Supine to Sit Supine to Sit Contact Guard Assistance Sit to Supine Sit to Supine Minimal Assistance Scooting Scooting to Edge of Bed Standby Assistance PT-Transfer Assessment Sit to and From Stand Sit to and from Stand Independent Equipment Orthotic/Prosthetic Devices or Brace: No Comments Mobility Comments Pt stood from bed to ambulate Gait Assessment Gait Gait Assistance Required: Standby Assistance Distance (Feet) 600 Able to Maintain Weight Bearing Status Yes During Gait Assistive Devices Assistive Device Gait Belt Orthotic/Prosthetic Devices or Brace: No Gait Deviations General Gait Pattern Within Normal Limits Comments Gait Comments Pt amb to BR SBA and was able to amb to stairs SBA with no LOB. Pt amb back to room SBA d /t using bathroom and then amb back to stairs to try wtih FWW SBA. Pt amb back to room with FWW SBA d/t fatigue. Stair Climbing Assessment Evaluation Level of Assist On Stairs Standby Assistance Technique/Endurance Stair Climbing Direction Ascend and Descend Stair Climbing Technique Step to Step Stair Climbing Set # Repetitions (reps) 3 Comments Stair Climbing Comments Pt went up and down steps with use of wall and/or rail 2 reps up/down steps. Pt amb later up/down 3 steps with use of FWW for last 2 steps with PT stabilizing it and went down backwards with PT stabilizing walker. PT-Balance Assessment Sitting Balance and Reactions Static Sitting Balance Ability Normal Dynamic Sitting Balance Ability Normal Standing Balance and Reactions Static Standing Balance Ability Good Dynamic Standing Balance Ability Good M5 PT-IP Objective Assessments Start: 05/09/18 15:21 Freq: NEEDED Status: Active Protocol: Document 05/09/18 15:21 [facility] (Rec: 05/09/18 15:33 [facility] [id number]) Orientation Orientation/Cognition Level of Alertness Alert M6 PT-IP Treatment Start: 05/09/18 15:21 Freq: NEEDED Status: Active Protocol: Document 05/09/18 15:21 [facility] (Rec: 05/09/18 15:33 [facility] [id number]) Physical Therapy Treatment Education Education Provided Safety Other Treatments Other Treatment Performed Discussed with & pt about shower chair and walker for home. M7 PT-IP Assessment and Plan Start: 05/09/18 15:21 Freq: NEEDED Status: Active Protocol: Document 05/09/18 15:21 [facility] (Rec: 05/09/18 15:33 [facility] [id number]) PT Summary Assessment and Plan Potential Rehabilitation Potential Good Status of Condition at Evaluation Stable Summary Impairments Pain ROM Strength Balance Bed Mobility Assessment Summary Pt is close to baseline after appendectomy 05/05 but is having difficulty with bed mobility. Pt would benefit from further therapy to work on bed mobility before returning home. Goals Bed Mobility Goal Independent Other Goals Pt will demonstrate safety with gait and mobility in order to be safe at home. Days to Meet Goals 3 Frequency of Treatment Frequency Of Treatment Once a Day Treatment Plan Physical Therapy Treatment Plan Bed Mobility Training Gait Training Therapeutic Exercise Balance Retraining Discharge Planning Neuromuscular Re-ed Other Recommendations and Next Treatment Focus on log roll technique Focus Recommendations To Nursing Amount of Assist Needed Standby Assistance Discharge Recommendations PT Discharge Recommendations Home
[2018-05-09] MEDS: AMLODIPINE 5 MG TABLET PO (17:14)
[2018-05-09] MEDS: LOVASTATIN 20 MG TABLET 40 MG PO (17:14)
[2018-05-09] MEDS: WARFARIN 5 MG TABLET PO (17:14)
[2018-05-09] MEDS: TAMSULOSIN 0.4 MG CAPSULE PO (17:14)
--- NOTE | 2018-05-09 17:33 | PC.NURSE ---
1500- assumed care of pt from outgoing shift. Pt sba. at bedside. pt up with pt and walked a very long distance. pt happy with the progress he is making. Pt uses call light. pt denies need for pain pill right now, but around 1630 he called for pain pill. pt Iv antibiotic infusing. tolerating. will continue to monitor.
[2018-05-09] MEDS: ALLOPURINOL 300 MG TABLET PO (20:36)
[2018-05-09] MEDS: SODIUM CHLORIDE 0.9% 250 ML 21 ML IV (22:19)
[2018-05-10 03:00] VITALS: BP 107/61; PULSE 84; RESP 17; TEMP 37.1; O2SAT 95
[2018-05-10] MEDS: OXYCODONE IR 5 MG TABLET PO ×4 (03:02→12:38)
[2018-05-10] MEDS: CARISOPRODOL 350 MG TABLET PO ×2 (04:30→12:38)
[2018-05-10] MEDS: PIPERACILLIN-TAZO 3.375 GM/50 ML FROZ.PIGGY IV (06:04)
[2018-05-10] MEDS: PANTOPRAZOLE 40 MG TABLET PO (06:04)
[2018-05-10 07:45] VITALS: BP 129/69; PULSE 79; RESP 18; TEMP 36.3; O2SAT 93
--- NOTE | 2018-05-10 08:31 | P.DS_ITS ---
History of Present Illness Date Patient Seen: 05/10/18 Time Patient Seen: 08:21 Chief complaint: RLQ pain Narrative: 82-year-old male with multiple comorbid medical conditions who presents to the emergency department early this morning with 2 day history of progressive right-sided abdominal pain. He states he had a similar episode approximately 6 months ago but this spontaneously resolved. Current episode has become progressively more severe with regard to pain intensity. He has also had some nausea. He has been progressively anorexic over the last 24 hr and has not eaten at all today other than a small simple water with medications. He has had a low-grade subjective fever and was mildly febrile in the emergency department. Denies any dysuria or hematuria. Last bowel movement was 2 days ago which is unusual for him as well. No recent diarrhea or constipation. No melena, hematochezia, or bright red blood per rectum. No chest pain or shortness of breath. Pain is exacerbated with coughing or laughing. Discharge Providers Date of admission: 05/04/18 09:29 Consults: 05/09/18 11:06 Consult to Physical Therapy Evaluate & Treat Comment: low back pain and difficulty ambulating Physician Instructions: Evaluate and Treat 05/04/18 11:09 Consult to Discharge Planning Routine Comment: Discharge provider: Jose Perez MD Discharge Date: 05/10/18 Summary Discharge Diagnosis: Acute necrotizing perforated appendicitis with abscess Attempted laparoscopic converted open appendectomy with drainage of abscess this admission Acute exacerbation of chronic low back pain with muscle spasm, resolved this admission Mild postoperative ileus which was not unanticipated following the above surgery for his disease process, subsequently resolved this admission Atrial fibrillation (chronic) Cholelithiasis (Acute) Chronic anticoagulation (Acute) Gout (Acute) History of gastric ulcer (Acute) History of tobacco use (Acute) Hyperlipidemia (Acute) Hypertension (Acute) Obesity (Acute) Polymyalgia rheumatica (Acute) History of laparotomy for perforated ulcer disease (Acute) Hospital Course: Patient was admitted for acute appendicitis but was chronically anticoagulated. He therefore required fresh frozen plasma infusion to correct his INR. He was then taken to the operating room urgently the next morning for the above surgical procedures. He tolerated this well and postoperatively was returned to the regular surgical floor. While there he remained afebrile and hemodynamically stable. He was restarted on his usual home medications once his mild postoperative ileus had resolved. He was maintained on intravenous Zosyn and Flagyl for the perforation. Drain was kept in place. He will be discharged home with a Mayo-Davis drain. His wound is healing nicely without erythema, infection, or breakdown. His pain is well controlled with oral analgesia. He did have some difficulties ambulating and required physical therapy consultation for mobility. This has subsequently improved. His major issue other than acute incisional pain was back spasm as above which was resolved with Soma. He has had return of spontaneous bowel and bladder function since admission. He is tolerating a regular diet. He has been restarted on his usual home medications including warfarin. Because of his improved condition with no evidence of other complications or other infectious issues he is discharged home on postoperative day 5. He has been given all appropriate instructions. He understands to return or call for fever , chills, nausea, vomiting, inability to tolerate a diet, progressive pain, lack of bowel function, wound erythema, or abnormal wound drainage. All questions were answered to his satisfaction, and he voiced understanding. He will otherwise follow-up in the surgery clinic in 5 days where his drain will be removed and vincent will be removed as well. Status at Discharge Cognitive/behavioral status at discharge: Alert, oriented x3 Functional status at discharge: independent ambulation Overall status at discharge: patient is progressing back to baseline Time Spent with Patient Less than 30 minutes Exam Vital Signs (past 8 hours): - 05/10/18 03:00 05/10/18 07:45 Temperature 98.7 F 97.4 F L Pulse Rate 84 79 Respiratory Rate 17 18 Blood Pressure 107/61 129/69 Pulse Oximetry 95 93 Oxygen Delivery Method Room Air Oxygen Flow Rate 0 Narrative Exam Narrative: Well-nourished well-developed elderly male in no acute distress. Alert oriented x3. Lying comfortably in bed this morning. is at the bedside for my visit as well. Remains afebrile with no tachycardia and otherwise normal blood pressure. Urine output is adequate and otherwise clear. He is having no further dysuria. Urinalysis was normal 2 days ago. Chest clear to auscultation bilaterally with irregular rhythm. No murmurs. No crackles or wheezes. Abdomen is soft and nondistended. Normal bowel sounds throughout. He is appropriately tender at the incision only in the right lower quadrant. Certainly no guarding or rebound tenderness. Wound is otherwise clean, dry, and intact without erythema, ecchymosis, hematoma, or seroma. Drain site is clean. Mayo-Davis drain is collecting a minimal amount of serous fluid only. Extremities show no clubbing or cyanosis Objective Labs Result Diagrams: 05/09/18 05:09 05/09/18 05:09 Labs: No new radiographic or laboratory studies for review at the time of discharge. White blood cell count is normal yesterday. No new radiographic studies for review since admission Discharge Plan Discharge Plan Patient Disposition: Home Discharge Med Rec/Prescriptions Prescriptions: New carisoprodol 350 mg Tablet 350 mg PO TID PRN (Reason: Pain, Moderate (4-6)) Qty: 60 RF: 0 oxycodone 5 mg Tablet 5 mg PO Q3HR PRN (Reason: Pain, Moderate (4-6)) Qty: 30 RF: 0 docusate sodium [Colace] 100 mg capsule 100 mg PO BID Qty: 14 RF: 1 sennosides [Senokot] 8.6 mg tablet 8.6 mg PO BEDTIME Qty: 10 RF: 1 ciprofloxacin HCl 750 mg tablet 750 mg PO BID Qty: 8 RF: 0 Continue allopurinol 300 MG tablet 300 mg PO QDAY Qty: 90 RF: 3 hydrochlorothiazide 25 MG tablet 25 mg PO QAM Qty: 90 RF: 3 potassium chloride 20 mEq tablet,ER particles/crystals 20 meq PO DAILY RF: 0 warfarin 5 mg tablet 2.5 mg PO MOWEFR RF: 0 methotrexate sodium (PF) 25 mg/mL solution 1 ml IM QWEEK RF: 0 sotalol 80 MG tablet 40 mg PO BID RF: 0 lovastatin 40 MG tablet 40 mg PO QPM RF: 0 fosinopril 20 MG tablet 20 mg PO BID RF: 0 amlodipine [Norvasc] 5 MG tablet 5 mg PO QPM RF: 0 tamsulosin [Flomax] 0.4 MG capsule 0.4 mg PO QPM RF: 0 finasteride 5 MG tablet 5 mg PO DAILY RF: 0 multivitamin [One Daily Multivitamin] Tablet 1 tab PO DAILY RF: 0 aspirin 81 mg Tablet,Delayed Release (Dr/Ec) 81 mg PO DAILY RF: 0 acetaminophen 500 mg Tablet 1,000 mg PO TID RF: 0 ascorbic acid (vitamin C) 500 mg Tablet 500 mg PO BID RF: 0 warfarin [Jantoven] 5 mg Tablet 5 mg PO SUTUTHSA RF: 0 Follow up/Referrals: Jose Perez MD [Physician] - 05/15/18 12:00 pm (Please call office for exact appointment time if not already scheduled) Provider Discharge Instructions Diet: Diet as Tolerated Activity: May walk as much as desired May climb stairs May ride in vehicle No driving while taking opioid pain medication No lifting more than 20 lb for 3 more weeks Cold/Heat Therapy: May apply ice pack as needed to incision for comfort Skin/Wound/Dressing Care Report to your healthcare provider any signs of infection, such as:: chills, fever, night sweats, increased pain, unusual drainage and unusual redness Dressing: No dressing necessary Other wound treatment: May shower Do not soak incision bathtub or pool until further notice Discharge Data Attending Provider: Jose Perez Admit Date/Time: 05/04/18 09:29 Quality VTE Deep Vein Thrombosis/Pulmonary Embolism Present on Admission: No
[2018-05-10] MEDS: ENOXAPARIN 40 MG/0.4 ML SYRINGE SUBCUT (09:00)
[2018-05-10] MEDS: SODIUM CHLORIDE 0.9% FLUSH 10 ML IV (09:00)
--- NOTE | 2018-05-10 09:30 | PC.NURSE ---
Patient states this morning pain in his back is finally improving. Denies other complaint. Up to bathroom with sb assistance this morning, refused use of walker. Sitting up in chair for breakfast. Drain and incisions to abdomen CDI. Plan for discharge to home today with . Call light within reach, continue with plan of care.
[2018-05-10] MEDS: FOSINOPRIL 10 MG TABLET 20 MG PO (09:55)
[2018-05-10] MEDS: SOTALOL 80 MG TABLET 40 MG PO (09:55)
[2018-05-10] MEDS: POTASSIUM CHLORIDE 20 MEQ TAB PO (09:55)
[2018-05-10] MEDS: FINASTERIDE 5 MG TABLET PO (09:55)
[2018-05-10] MEDS: hydroCHLOROthiazide 25 MG TABLET PO (09:55)
[2018-05-10 11:20] VITALS: BP 118/61; PULSE 81; RESP 18; TEMP 36.4; O2SAT 95
--- NOTE | 2018-05-10 12:56 | PT.IPTN ---
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 (05/04/18) Surgery Performed Operation Date: 05/05/18 07:20 Actual Procedures p Laparoscopic Appendectomy converted to Open Appendectomy - Jose Perez MD Physical Therapy Treatment Note M2 PT-IP Current Condition Start: 05/09/18 15:21 Freq: NEEDED Status: Active Protocol: Document 05/09/18 15:21 [facility] (Rec: 05/09/18 15:33 [facility] [id number]) Physical Therapy Current Condition Current Condition Evaluation Date 05/09/18 Treatment Diagnosis s/p appendectomy 05/05 Precautions Abdominal Surgery Precautions Log Roll Lifting Restrictions Gait Belt above Incisional Area Weight Bearing Status Weight Bearing Status Full Weight Bearing M3 PT-IP Subjective Start: 05/09/18 15:21 Freq: NEEDED Status: Active Protocol: Document 05/10/18 10:30 [facility] (Rec: 05/10/18 12:56 [facility] [id number]) Subjective Physical Therapy Visit Type Type Treatment Note Visit Start Time 10:30 Visit Stop Time 11:00 Total Visit Minutes 30 Number of DEPARTMENT SECRETARY Visits 1 Physical Therapy Visit Comments Patient Comments Pt stated he is feeling better today. Therapy Pain Assessment Pain Present Pain Present Denied Pain M4 PT-IP Mobility and Gait Start: 05/09/18 15:21 Freq: NEEDED Status: Active Protocol: Document 05/10/18 10:30 [facility] (Rec: 05/10/18 12:56 [facility] [id number]) PT-Bed Mobility Assessment Rolling Type of Rolling Log Rolling Roll to Right Level of Assist Standby Assistance Supine to Sit Supine to Sit Standby Assistance Contact Guard Assistance Sit to Supine Sit to Supine Contact Guard Assistance Scooting Scooting to Edge of Bed Standby Assistance PT-Transfer Assessment Sit to and From Stand Sit to and from Stand Independent Equipment Orthotic/Prosthetic Devices or Brace: No Comments Mobility Comments Pt improved with bed mobility with cues for sequencing then able to recall sequence and able to perform log roll and reverse log roll and supine<> sit SBA. Gait Assessment Gait Gait Assistance Required: Standby Assistance Distance (Feet) 400 Able to Maintain Weight Bearing Status Yes During Gait Assistive Devices Assistive Device Gait Belt Orthotic/Prosthetic Devices or Brace: No Gait Deviations General Gait Pattern Within Normal Limits Comments Gait Comments Pt up ambulating in room with upon arrival. Pt able to ambulate in lucio ~400ft SBA w/ o AD. M5 PT-IP Objective Assessments Start: 05/09/18 15:21 Freq: NEEDED Status: Active Protocol: Document 05/09/18 15:21 [facility] (Rec: 05/09/18 15:33 [facility] [id number]) Orientation Orientation/Cognition Level of Alertness Alert M6 PT-IP Treatment Start: 05/09/18 15:21 Freq: NEEDED Status: Active Protocol: Document 05/09/18 15:21 [facility] (Rec: 05/09/18 15:33 [facility] [id number]) Physical Therapy Treatment Education Education Provided Safety Other Treatments Other Treatment Performed Discussed with & pt about shower chair and walker for home. M7 PT-IP Assessment and Plan Start: 05/09/18 15:21 Freq: NEEDED Status: Active Protocol: Document 05/10/18 10:30 [facility] (Rec: 05/10/18 12:56 [facility] [id number]) PT Summary Assessment and Plan Summary Impairments Pain ROM Strength Balance Bed Mobility Assessment Summary Pt able to ambulate SBA w/o AD ~400ft, pt improved with bed mobility after log roll training with assisting. FWW issued to pt for home use when needed. Goals Bed Mobility Goal Independent Other Goals Pt will demonstrate safety with gait and mobility in order to be safe at home. Days to Meet Goals 3 Frequency of Treatment Frequency Of Treatment Once a Day Treatment Plan Physical Therapy Treatment Plan Bed Mobility Training Gait Training Therapeutic Exercise Balance Retraining Discharge Planning Neuromuscular Re-ed Recommendations To Nursing Amount of Assist Needed Standby Assistance Discharge Recommendations PT Discharge Recommendations Home
--- NOTE | 2018-05-10 13:40 | CM.DPC ---
DCP: continued: pt with a d/c order for home: noted [id number]. ELECTRICAL INSTRUMENT REPAIRER Hailey is working with pt today, says s FWW is needed. Checked in with pt and his and both confirm same. They request this be received through the Therapy dept consignment closet and billed to pt's insurance. Order for FWW is obtained and given to Hailey who will process the order and issue the FWW to pt. He is going home to [facility] with his today on 1529.
== END 2018-05-10 14:50 | disposition home or self-care (01) | DRG 339 ==
LOC: ED 09:02 → AC 09:44
PROVIDERS: Emergency Medicine; Surgery; Admitting Provider Surgery; Emergency Provider Emergency Medicine; Visit Provider Surgery
PROC: 0DTJ4ZZ Resection of Appendix, Percutaneous Endoscopic Approach (ICD-10-PCS; CPT 44970; principal; 2018-05-05 07:20)
DX: K35.33 Acute appendicitis with perforation, localized peritonitis, and gangrene, with abscess (principal); K63.0 Abscess of intestine; M62.830 Muscle spasm of back; I48.91 Unspecified atrial fibrillation; Z79.01 Long term (current) use of anticoagulants; Z87.891 Personal history of nicotine dependence; E78.5 Hyperlipidemia, unspecified; I10 Essential (primary) hypertension; M10.9 Gout, unspecified; M06.9 Rheumatoid arthritis, unspecified; Z53.31 Laparoscopic surgical procedure converted to open procedure
CPT/HCPCS: 36415; 36430; 44950; 74177; 80048; 80053; 81001; 81003; 81015; 83690; 85025; 85610; 86850; 86900; 86901; 86927; 88304; 94667; 94760; 96361; 96374; 96375; 97116; 97161; 97530; 99222; 99283; 99285; P9016; C9113; J1170; J1650; J2060; J2270; J2405; J2543; J2704; J3010

== ENCOUNTER → 2019-02-12 10:29 | Outpatient (CLI) | payer MEDICARE, SELFPAY ==
[2018-05-15 16:27] VITALS: BMI 30.8
--- NOTE | 2019-02-12 14:51 | PM.TREADMILL ---
Cardiac Stress Test Report Referral & Results Date Patient Seen: 02/12/19 Requesting provider: Haydee Ray Indication: Paroxysmal atrial fibrillation Rest ECG: Frequent PACs otherwise unremarkable Procedure Note: Today following both written and verbal informed consent the patient was exercised according to a standard Ollie protocol patient went for a total of 4 minutes 39 seconds achieving a maximum heart rate of 130 for maximum systolic blood pressure of 140 for. This is approximately 6.1 METS. Exercise was terminated at this point because of inability the patient to keep up and severe knee pain. Patient was also given Cardiolite through a previously started Hep-Lock IV by the diagnostic imaging staff approximately 1 minute prior to the cessation of exercise. Patient actually could not continue beyond about 50 seconds into stage II. Speed of the treadmill had to be reduced while patient was given the isotope and exercised for another 30-40 seconds beyond that No ST-T segment changes were identified Normal heart rate and blood pressure response Functional aerobic impairment rates about 20% on the sedentary scale Occasional frequent PACs as above Impression: No ECG evidence of ischemia Frequent supraventricular dysrhythmias above Please see perfusion imaging report as well Please note: Actual ECG tracings can be found in the PACS system.
--- NOTE | 2019-02-12 18:10 | DI.NM.S_ITS ---
DATE OF SERVICE: 02/12/2019 PROCEDURE: Exercise perfusion study. INDICATIONS: Paroxysmal atrial fibrillation, hypertension, hyperlipidemia.. RADIOPHARMACEUTICAL: 25.8 mCi technetium-99m Myoview IV was injected at stress and 11.8 mCi technetium-99m Myoview IV was injected at rest. It was a 1-day protocol. CARDIAC STRESS: Patient underwent exercise perfusion study under the supervision of an attending staff. Patient walked on Ollie protocol for 4 minutes 39 seconds achieved 83% of target heart rate, 6.1 METs of workload, and normal blood pressure response. Baseline EKG revealed sinus rhythm with some PACs. During stress, there was no convincing ischemic changes. There was artifacts seen. Patient also had frequent PACs. There are some PVCs as well. No sustained ventricular tachycardia. No obvious atrial fibrillation. Patient had knee pain. RAW DATA: There was increased of diaphragmatic activity. GATED STUDY: Resting LV ejection fraction 60% and stress LV ejection fraction 73%. No significant wall motion abnormalities. Resting end-diastolic volume is 96 mL. TID ratio is 0.72, which is within normal limits. Lung/heart ratio is 0.25, which is within normal limits. MYOCARDIAL PERFUSION SCAN: Resting supine images revealed small-sized mildly decreased perfusion of basal inferior wall and mid anterior wall. However, stress supine and stress prone images revealed normal myocardial perfusion. CONCLUSION: I will call this study a normal myocardial perfusion study. Overall, this is a low-risk myocardial perfusion scan. Patient walked on Ollie protocol for 4 minutes 39 seconds, had knee pain, achieved 82% of target heart rate. Technically, it is a submaximal exercise stress test. Clinical correlation is recommended. Teja Gage - RENATA/carmelina/ doc#: [id number]/job#: [id number] dd: 02/12/2019 16:59:00 dt: 02/12/2019 17:50:00 DICTATING MD/COPIES TO: Sabina Sinha MD COPIES MNE: DEXTER
== END ==
PROVIDERS: Family Provider Family Medicine; PCP Family Medicine; Visit Provider Internal Medicine Cardiovascular Disease
DX: I48.0 Paroxysmal atrial fibrillation (principal); I10 Essential (primary) hypertension; E78.5 Hyperlipidemia, unspecified
CPT/HCPCS: 78452; 93016; 93017; 93018; A9502

== ENCOUNTER 2019-06-05 14:31 | Observation (INO) | payer MEDICARE, SELFPAY ==
[2018-05-15 16:27] VITALS: BMI 30.8
[2019-06-05] VITALS (8 sets, daily range): BP systolic 101–127; BP diastolic 61–76; PULSE 82–120; RESP 18–25; TEMP 36.3–37.1; O2SAT 92–97; BMI 30.4
--- NOTE | 2019-06-05 15:23 | DI.RAD.S_ITS ---
PROCEDURE: XR CHEST 2V INDICATIONS: dyspnea, fluid retention, recent h/o of pneumonia TECHNIQUE: 2 views of the chest were acquired. COMPARISON: None. FINDINGS: Surgical changes and devices: None. Lungs and pleura: Small left pleural effusion with adjacent atelectasis. No pneumothorax. Scattered atelectasis. Mediastinum: Mediastinal contours are normal. Heart size is normal. Bones and chest wall: No suspicious bony abnormalities. Soft tissues appear unremarkable. IMPRESSION: Small left pleural effusion with adjacent atelectasis Dictated by: Jaime Oconnor M.D. on 06/05/2019 at 16:57 Approved by: Jaime Oconnor M.D. on 06/05/2019 at 16:59
[2019-06-05] MEDS: methylPREDNISolone 125 MG/2 ML VIAL IV (16:07)
[2019-06-05] MEDS: ALBUTEROL/IPRATROPIUM 3 ML AMPUL INH ×3 (16:09→20:10)
[2019-06-05 16:43] LABS: Add Manual Diff / Slide Review NO; Basophils Absolute Auto 100 /uL (0-100); Basophils Percent Auto 0.5 % (0-2); Eosinophils Absolute Auto 100 /uL (0-450); Eosinophils Percent Auto 0.5 % (2-4); Hemoglobin 12.2 g/dL (13.5-17.5); Lymphocytes Absolute Auto 1000 /uL (1100-4500); Lymphocytes Percent Auto 7.5 % (25-40); Mean Corpuscular HGB Conc 33.1 % (30-36); Mean Corpuscular Hemoglobin 32.1 PG (26-34); Monocytes Absolute Auto 1200 /uL (0-900); Monocytes Percent Auto 9.2 % (3-14); Neutrophils Absolute Auto 11100 /uL (1500-7000); Neutrophils Percent Auto 82.3 % (50-75); Platelet Count 389 X10^3/uL (150-400); Red Blood Cell Count 3.81 X10^6/uL (4.5-5.9); Red Cell Distribution Width 15.4 % (11.6-14.8); White Blood Cell Count 13.5 X10^3/uL (4.5-11.0)
[2019-06-05 16:56] LABS: Creatine Kinase 32 U/L (55-170); Lactate (Lactic Acid) 1.7 mmol/L (0.7-2.1); Magnesium 2.5 mg/dL (1.6-2.3)
[2019-06-05 17:08] LABS: Troponin I 0.052 ng/mL (0.01-0.034)
[2019-06-05 17:18] LABS: Procalcitonin 0.13 ng/mL (<0.5)
--- NOTE | 2019-06-05 17:51 | ED_ITS ---
HPI - SOB/Dyspnea <Berhane Chapman MD - Last Filed: 06/06/19 21:34> General Chief Complaint: Shortness of Breath/Dyspnea Stated Complaint: PNUMONIA Time Seen by Provider: 06/05/19 14:54 Source: patient Mode of arrival: Family Vehicle History of Present Illness HPI Narrative: The patient is an 84-year-old male who is a resident on [place] in the [facility] who was sent by his family physician to the emergency depa rtment to be further evaluated. He has developed progressive worsening shortness of breath over the last few days with swelling of his legs. Patient denies a history of congestive heart failure but admits to atrial fibrillation on Coumadin. He has developed progressively worsening shortness of breath without chest pain. Lung he has had a cough. He states that he has been retaining water with progressive swelling of his legs. The patient recently had pneumonia and was hospitalized at [facility] in [place] . The patient admits to a history of polymyalgia rheumatica and has been placed on methotrexate for this. The patient states that he took an injection on Tuesday night. He was worried that he has developed a pneumonia again with progressive shortness of breath swelling and coughing. He states that when he swallows food seems to stick in his upper chest. He admits to a history of hypertension but denies diabetes mellitus and stroke congestive heart failure previous myocardial infarction or COPD. The patient quit smoking over 40 years ago. He is not vapor drink alcohol to tobacco use any drugs. He has had intermittently felt feverish with chills and sweats. He denies any headache nasal drainage sinus congestion sore throat but has had a chronic cough with Jeremias E sputum without hemoptysis. He has been short of breath especially on exertion but has not had any chest pain. He has been extremely weak and easily fatigued with absolutely no energy. He has had purpura over his arms from his Coumadin. He denies any abdominal pain nausea vomiting melena hematochezia. He has had diarrhea. He denies any urinary symptoms. Related Data Home Medications Medication Instructions Recorded Confirmed acetaminophen 1,000 mg PO TID 05/04/18 05/31/18 amlodipine [Norvasc] 5 mg PO QPM 05/04/18 06/05/19 ascorbic acid (vitamin C) 500 mg PO BID 05/04/18 05/31/18 aspirin 81 mg PO DAILY 05/04/18 05/31/18 finasteride 5 mg PO DAILY 05/04/18 06/05/19 fosinopril 20 mg PO BID 05/04/18 06/05/19 lovastatin 40 mg PO QPM 05/04/18 06/05/19 methotrexate sodium (PF) 1 ml IM QWEEK 05/04/18 05/31/18 multivitamin [One Daily 1 tab PO DAILY 05/04/18 05/31/18 Multivitamin] potassium chloride 20 meq PO DAILY 05/04/18 06/05/19 sotalol 40 mg PO BID 05/04/18 05/31/18 tamsulosin [Flomax] 0.8 mg PO QPM 05/04/18 05/31/18 warfarin 2.5 mg PO MOWEFR 05/04/18 05/31/18 warfarin [Jantoven] 5 mg PO SUTUTHSA 05/04/18 05/31/18 allopurinol 300 mg PO DAILY 06/05/19 06/05/19 gabapentin 100 mg PO TID 06/05/19 06/05/19 metoprolol tartrate 25 mg PO TID 06/05/19 nitroglycerin 0.4 mg SUBLINGUAL PRN PRN 06/05/19 06/05/19 omeprazole 20 mg PO DAILY 06/05/19 06/05/19 warfarin [Jantoven] 06/05/19 Previous Rx's Medication Instructions Recorded hydrochlorothiazide 25 mg PO QAM #90 tab 08/26/16 Allergies Allergy/AdvReac Type Severity Reaction Status Date / Time latex [LATEX] Allergy Mild Rash Verified 05/15/18 15:59 Review of Systems <Berahne Chapman MD - Last Filed: 06/06/19 21:34> Review of Systems ROS Unobtainable: All systems reviewed & are unremarkable except as noted in HPI and below Patient History <Berhane Chapman MD - Last Filed: 06/06/19 21:34> Medical History Atrial fibrillation (Acute) Cholelithiasis (Acute) Chronic anticoagulation (Acute) Gout (Acute) History of gastric ulcer (Acute) History of tobacco use (Acute) Hyperlipidemia (Acute) Hypertension (Acute) Obesity (Acute) Polymyalgia rheumatica (Acute) Surgical History History of laparotomy (Acute) Family History Mother Hypertension Heart disease Diabetes mellitus Social History marital status: household members: spouse and other occupational status: previously employed Smoking Status: Former smoker alcohol intake: former substance use type: does not use Smoking Status: Former smoker alcohol intake frequency: holidays/special occasions only Substance Use Type: does not use Exam <Berhane Chapman MD - Last Filed: 06/06/19 21:34> Narrative Exam Narrative: PHYSICAL EXAM: CONSTITUTIONAL: Awake, Alert, Oriented, Coherent, Cooperative in NAD. The patient appears dyspneic and has a chronic arm cough.. HEAD: AT/NC EENT: PERRL, FROM of eyes, no discharge, no nystagmus Oral mucosa is moist and pink, posterior pharynx is without erythema or exudate. NECK: Supple, no obvious JVD, Trachea is midline without stridor, no palpable LN or masses. SPINE: No gross deformity, no palpable tenderness of the cervical, thoracic, lumbar or sacral spine. No CVA tenderness. THORAX: No deformity, retractions, chest wall tenderness, subcutaneous air or crepitice. LUNGS: Decreased breath sounds bilaterally. There are a few inspiratory crackles in both bases. Breath sounds are markedly decreased in the lower 1/3 of each lung for lung field. HEART: Muffled heart tones that are distant and appear to be relatively regular. ABDOMEN: Soft, non-tender, normal bowel sounds without guarding, rebound, rigidity or palpable mass EXTREMITIES: No calf tenderness but the patient has 2+ pitting edema up to his proximal thighs. SKIN: No rash, bruising and purpura are noted primarily over his upper arms. NEURO: Awake, alert, oriented, conversive, cranial nerves II-XII are symmetrical and normal, moves all 4 extremities and is ambulatory Initial Vital Signs Initial Vital Signs: Vital Signs Pulse Rate 91 H 06/05/19 14:35 Respiratory Rate 23 06/05/19 14:35 Blood Pressure 127/76 06/05/19 14:35 Pulse Oximetry 97 06/05/19 14:35 <Bradly Man DO - Last Filed: 06/06/19 00:53> Initial Vital Signs Initial Vital Signs: Vital Signs Pulse Rate 91 H 06/05/19 14:35 Respiratory Rate 23 06/05/19 14:35 Blood Pressure 127/76 06/05/19 14:35 Pulse Oximetry 97 06/05/19 14:35 Course <Berhane Chapman MD - Last Filed: 06/06/19 21:34> Course Course Narrative: The patient's chest x-ray reveals a small left pleural effusion with adjacent atelectasis. His troponin was elevated at 0.[address] segment elevations and probably represents a non STEMI. A repeat troponin has been ordered on the patient to see whether not it is staying the same or going up after 1 hour. The patient CPK is 32 magnesium is 2.5 white blood count is 13.5 with 82.3% neutrophils. The patient's proBNP with his peripheral 2+ pitting edema of his legs and lactate remain pending at this time. 1845 the patient's repeat troponin is 0.0531 hour after the initial. The patient's lactic acid and proBNP remain pending. 1850 the patient's lactate is 1.7 proBNP is 1190. The question is whether not the patient has right-sided congestive heart failure. The CMP has been added and was misting the initial orders. We do not know what the patient's potassium and creatinine are at the present time. Report will be given to Dr. Man. Orders Ordered: Acetaminophen (Tylenol) 650 mg PO Q6HR PRN PRN Reason: Fever/Mild Pain (1-3) Last Admin: 06/06/19 14:48 Dose: 650 mg Documented by: CARITO Small Hydrox/Mg Hydrox/Simethicone (Maalox Plus) 30 ml PO Q6HR PRN PRN Reason: Dyspepsia Allopurinol (Zyloprim) 300 mg PO DAILY [facility] Last Admin: 06/06/19 10:20 Dose: 300 mg Documented by: NILDATRIC Benzonatate (Tessalon Perles) 200 mg PO TID PRN PRN Reason: Cough Last Admin: 06/06/19 20:35 Dose: 200 mg Documented by: Admin: 06/06/19 00:41 Dose: 200 mg Documented by: EMIR Bisacodyl (Dulcolax) 10 mg AR DAILY PRN PRN Reason: Constipation Calcium Carbonate (Tums) 1,000 mg PO Q4HR PRN PRN Reason: Dyspepsia Colchicine (Colcrys) 0.6 mg PO BID [facility] Last Admin: 06/06/19 20:32 Dose: 0.6 mg Documented by: ARABELLAONDLamont Docusate Sodium (Colace) 100 mg PO BID PRN PRN Reason: Constipation Finasteride (Proscar) 5 mg PO DAILY [facility] Last Admin: 06/06/19 10:20 Dose: 5 mg Documented by: AGUS Fosinopril Sodium (Monopril) 20 mg PO BID [facility] Last Admin: 06/06/19 20:30 Dose: 20 mg Documented by: Admin: 06/06/19 10:20 Dose: 20 mg Documented by: AGUS Gabapentin (Neurontin) 100 mg PO TID [facility] Last Admin: 06/06/19 20:31 Dose: 100 mg Documented by: Admin: 06/06/19 14:48 Dose: 100 mg Documented by: Admin: 06/06/19 10:19 Dose: 100 mg Documented by: AGUS Hydrochlorothiazide (Hydrochlorothiazide) 25 mg PO DAILY [facility] Last Admin: 06/06/19 10:11 Dose: 25 mg Documented by: AGUS Lovastatin (Mevacor) 40 mg PO QPM [facility] Last Admin: 06/06/19 17:15 Dose: 40 mg Documented by: Admin: 06/06/19 03:11 Dose: Not Given Documented by: EMIR Metoprolol Tartrate (Lopressor) 37.5 mg PO BID [facility] Last Admin: 06/06/19 20:34 Dose: 37.5 mg Documented by: Admin: 06/06/19 10:11 Dose: 37.5 mg Documented by: Admin: 06/06/19 00:40 Dose: 37.5 mg Documented by: EMIR Naloxone HCl (Narcan) 0.2 mg IV Q2MIN PRN PRN Reason: Opiate Reversal Nitroglycerin (Nitrostat) 0.4 mg SL PRN PRN PRN Reason: Chest Pain Ondansetron HCl (Zofran) 4 mg IV Q8HR PRN PRN Reason: Nausea And Vomiting Pantoprazole Sodium (Protonix) 20 mg PO 0600 [facility] Last Admin: 06/06/19 05:52 Dose: Not Given Documented by: PAUL Sotalol HCl (Betapace) 40 mg PO BID [facility] Last Admin: 06/06/19 20:32 Dose: 40 mg Documented by: Admin: 06/06/19 10:19 Dose: 40 mg Documented by: Admin: 06/06/19 00:37 Dose: 40 mg Documented by: EMIR Tamsulosin HCl (Flomax) 0.4 mg PO DAILY [facility] Last Admin: 06/06/19 10:11 Dose: 0.4 mg Documented by: AGUS Discontinued Medications Acetaminophen/Codeine Phosphate (Tylenol #3) 1 tab PO NOW ONE Stop: 06/06/19 02:05 Last Admin: 06/06/19 04:40 Dose: Not Given Documented by: EMIR Acetaminophen/Codeine Phosphate (Tylenol #3) 1 tab PO NOW ONE Stop: 06/06/19 04:46 Last Admin: 06/06/19 04:42 Dose: 1 tab Documented by: EMIR Albuterol/Ipratropium (Duoneb) 3 ml INH NOW ONE Stop: 06/05/19 15:22 Last Admin: 06/05/19 16:09 Dose: 3 ml Documented by: EMORY Albuterol/Ipratropium (Duoneb) 3 ml INH NOW ONE Stop: 06/05/19 17:22 Last Admin: 06/05/19 17:22 Dose: 3 ml Documented by: AMY Albuterol/Ipratropium (Duoneb) 3 ml INH NOW ONE Stop: 06/05/19 17:41 Last Admin: 06/05/19 20:10 Dose: 3 ml Documented by: AMY Amlodipine Besylate (Norvasc) 5 mg PO QPM [facility] Furosemide (Lasix) 40 mg IV NOW ONE Stop: 06/05/19 19:26 Last Admin: 06/05/19 19:56 Dose: 40 mg Documented by: ALDO Furosemide (Lasix) 40 mg IV NOW ONE Stop: 06/06/19 19:39 Last Admin: 06/06/19 20:36 Dose: 40 mg Documented by: JANUSZ Sodium Chloride (Normal Saline 0.9%) 1,000 mls @ 100 mls/hr IV CONT [facility] Last Infusion: 06/06/19 10:49 Dose: 0 mls/hr Documented by: Admin: 06/06/19 04:41 Dose: 100 mls/hr Documented by: EMIR Methylprednisolone (Solu-Medrol 125 Mg Vial) 125 mg IV NOW ONE Stop: 06/05/19 15:22 Last Admin: 06/05/19 16:07 Dose: 125 mg Documented by: ALDO Metoprolol Tartrate (Lopressor) 25 mg PO TID [facility] Last Admin: 06/06/19 03:17 Dose: Not Given Documented by: EMIR Tamsulosin HCl (Flomax) 0.8 mg PO DAILY [facility] Last Admin: 06/06/19 03:17 Dose: Not Given Documented by: EMIR Vital Signs Vital signs: Vital Signs - 8 hr 06/05/19 18:41 06/05/19 20:00 Pulse Rate 90 91 H Respiratory Rate 19 Blood Pressure [Left Arm] 101/70 127/72 Pulse Oximetry 95 <Bradly Man, - Last Filed: 06/06/19 00:53> Orders Ordered: Acetaminophen (Tylenol) 650 mg PO Q6HR PRN PRN Reason: Fever/Mild Pain (1-3) Last Admin: 06/06/19 14:48 Dose: 650 mg Documented by: CARITO Small Hydrox/Mg Hydrox/Simethicone (Maalox Plus) 30 ml PO Q6HR PRN PRN Reason: Dyspepsia Allopurinol (Zyloprim) 300 mg PO DAILY [facility] Last Admin: 06/06/19 10:20 Dose: 300 mg Documented by: AGUS Benzonatate (Tessalon Perles) 200 mg PO TID PRN PRN Reason: Cough Last Admin: 06/06/19 20:35 Dose: 200 mg Documented by: Admin: 06/06/19 00:41 Dose: 200 mg Documented by: EMIR Bisacodyl (Dulcolax) 10 mg AR DAILY PRN PRN Reason: Constipation Calcium Carbonate (Tums) 1,000 mg PO Q4HR PRN PRN Reason: Dyspepsia Colchicine (Colcrys) 0.6 mg PO BID [facility] Last Admin: 06/06/19 20:32 Dose: 0.6 mg Documented by: MIKEL Docusate Sodium (Colace) 100 mg PO BID PRN PRN Reason: Constipation Finasteride (Proscar) 5 mg PO DAILY [facility] Last Admin: 06/06/19 10:20 Dose: 5 mg Documented by: AGUS Fosinopril Sodium (Monopril) 20 mg PO BID [facility] Last Admin: 06/06/19 20:30 Dose: 20 mg Documented by: Admin: 06/06/19 10:20 Dose: 20 mg Documented by: AGUS Gabapentin (Neurontin) 100 mg PO TID [facility] Last Admin: 06/06/19 20:31 Dose: 100 mg Documented by: Admin: 06/06/19 14:48 Dose: 100 mg Documented by: Admin: 06/06/19 10:19 Dose: 100 mg Documented by: AGUS Hydrochlorothiazide (Hydrochlorothiazide) 25 mg PO DAILY [facility] Last Admin: 06/06/19 10:11 Dose: 25 mg Documented by: AGUS Lovastatin (Mevacor) 40 mg PO QPM [facility] Last Admin: 06/06/19 17:15 Dose: 40 mg Documented by: Admin: 06/06/19 03:11 Dose: Not Given Documented by: EMIR Metoprolol Tartrate (Lopressor) 37.5 mg PO BID [facility] Last Admin: 06/06/19 20:34 Dose: 37.5 mg Documented by: Admin: 06/06/19 10:11 Dose: 37.5 mg Documented by: Admin: 06/06/19 00:40 Dose: 37.5 mg Documented by: EMIR Naloxone HCl (Narcan) 0.2 mg IV Q2MIN PRN PRN Reason: Opiate Reversal Nitroglycerin (Nitrostat) 0.4 mg SL PRN PRN PRN Reason: Chest Pain Ondansetron HCl (Zofran) 4 mg IV Q8HR PRN PRN Reason: Nausea And Vomiting Pantoprazole Sodium (Protonix) 20 mg PO 0600 [facility] Last Admin: 06/06/19 05:52 Dose: Not Given Documented by: PAUL Sotalol HCl (Betapace) 40 mg PO BID [facility] Last Admin: 06/06/19 20:32 Dose: 40 mg Documented by: [email or web address] Admin: 06/06/19 10:19 Dose: 40 mg Documented by: Admin: 06/06/19 00:37 Dose: 40 mg Documented by: EMIR Tamsulosin HCl (Flomax) 0.4 mg PO DAILY [facility] Last Admin: 06/06/19 10:11 Dose: 0.4 mg Documented by: AGUS Discontinued Medications Acetaminophen/Codeine Phosphate (Tylenol #3) 1 tab PO NOW ONE Stop: 06/06/19 02:05 Last Admin: 06/06/19 04:40 Dose: Not Given Documented by: EMIR Acetaminophen/Codeine Phosphate (Tylenol #3) 1 tab PO NOW ONE Stop: 06/06/19 04:46 Last Admin: 06/06/19 04:42 Dose: 1 tab Documented by: EMIR Albuterol/Ipratropium (Duoneb) 3 ml INH NOW ONE Stop: 06/05/19 15:22 Last Admin: 06/05/19 16:09 Dose: 3 ml Documented by: EMORY Albuterol/Ipratropium (Duoneb) 3 ml INH NOW ONE Stop: 06/05/19 17:22 Last Admin: 06/05/19 17:22 Dose: 3 ml Documented by: AMY Albuterol/Ipratropium (Duoneb) 3 ml INH NOW ONE Stop: 06/05/19 17:41 Last Admin: 06/05/19 20:10 Dose: 3 ml Documented by: AMY Amlodipine Besylate (Norvasc) 5 mg PO QPM [facility] Furosemide (Lasix) 40 mg IV NOW ONE Stop: 06/05/19 19:26 Last Admin: 06/05/19 19:56 Dose: 40 mg Documented by: ALDO Furosemide (Lasix) 40 mg IV NOW ONE Stop: 06/06/19 19:39 Last Admin: 06/06/19 20:36 Dose: 40 mg Documented by: JANUSZ Sodium Chloride (Normal Saline 0.9%) 1,000 mls @ 100 mls/hr IV CONT [facility] Last Infusion: 06/06/19 10:49 Dose: 0 mls/hr Documented by: Admin: 06/06/19 04:41 Dose: 100 mls/hr Documented by: EMIR Methylprednisolone (Solu-Medrol 125 Mg Vial) 125 mg IV NOW ONE Stop: 06/05/19 15:22 Last Admin: 06/05/19 16:07 Dose: 125 mg Documented by: ALDO Metoprolol Tartrate (Lopressor) 25 mg PO TID [facility] Last Admin: 06/06/19 03:17 Dose: Not Given Documented by: EMIR Tamsulosin HCl (Flomax) 0.8 mg PO DAILY [facility] Last Admin: 06/06/19 03:17 Dose: Not Given Documented by: EMIR Vital Signs Vital signs: Vital Signs - 8 hr 06/05/19 18:41 06/05/19 20:00 Pulse Rate 90 91 H Respiratory Rate 19 Blood Pressure [Left Arm] 101/70 127/72 Pulse Oximetry 95 MDM - SOB/Dyspnea <Berhane Chapman MD - Last Filed: 06/06/19 21:34> Lab Data Result diagrams: 06/06/19 05:26 06/06/19 05:26 Labs: Lab Results 06/05/19 06/05/19 06/05/19 Range/Units 16:36 16:36 16:36 WBC 13.5 H (4.5-11.0) X10^3/uL RBC 3.81 L (4.5-5.9) X10^6/uL Hgb 12.2 L (13.5-17.5) g/dL Hct 37.0 L (41-53) % MCV 97.0 (80-100) fL MCH 32.1 (26-34) PG MCHC 33.1 (30-36) % RDW 15.4 H (11.6-14.8) % Plt Count 389 (150-400) X10^3/uL Neut % (Auto) 82.3 H (50-75) % Lymph % (Auto) 7.5 L (25-40) % Evans % (Auto) 9.2 (3-14) % Eos % (Auto) 0.5 L (2-4) % Baso % (Auto) 0.5 (0-2) % Neut # (Auto) 97926 H (1360-3817) /uL Lymph # (Auto) 1000 L (8782-7751) /uL Evans # (Auto) 1200 H (0-900) /uL Eos # (Auto) 100 (0-450) /uL Baso # (Auto) 100 (0-100) /uL PT (10.1-12.7) SECONDS INR (0.9-1.3) APTT (26.4-36.2) SECONDS ABG pH (7.35-7.45) ABG pCO2 (35-45) mmHg ABG pO2 (80-100) mmHg ABG HCO3 (22-26) mmol/L ABG Total CO2 (21-31) mmol/L ABG O2 Saturation (95-100) % ABG Base Excess (-2-2) mmol/L FiO2 Sodium (137-145) mmol/L Potassium (3.4-5.1) mmol/L Chloride (98-107) mmol/L Carbon Dioxide (22-32) mmol/L BUN (9-20) mg/dL Creatinine (0.66-1.25) mg/dL Estimated GFR (>60) mL/min BUN/Creatinine Ratio (6-22) Glucose (80-110) mg/dL Lactate (0.7-2.1) mmol/L Calcium (8.4-10.2) mg/dL Magnesium 2.5 H (1.6-2.3) mg/dL Total Bilirubin (0.2-1.3) mg/dL AST (17-59) IU/L ALT (<50) IU/L Alkaline Phosphatase (38-126) U/L Total Creatine Kinase 32 L (55-170) U/L CK-MB (CK-2) TNP CK-MB (CK-2) Rel Index TNP Troponin I 0.052 H (0.01-0.034) ng/mL NT-Pro-B Natriuret Pep (<450) pg/mL Total Protein (6.3-8.2) g/dL Albumin (3.5-5.0) g/dL Globulin (1.7-4.1) g/dL Albumin/Globulin Ratio (1.0-2.8) Procalcitonin 0.13 (<0.5) ng/mL 06/05/19 06/05/19 06/05/19 Range/Units 16:36 16:36 16:36 WBC (4.5-11.0) X10^3/uL RBC (4.5-5.9) X10^6/uL Hgb (13.5-17.5) g/dL Hct (41-53) % MCV (80-100) fL MCH (26-34) PG MCHC (30-36) % RDW (11.6-14.8) % Plt Count (150-400) X10^3/uL Neut % (Auto) (50-75) % Lymph % (Auto) (25-40) % Evans % (Auto) (3-14) % Eos % (Auto) (2-4) % Baso % (Auto) (0-2) % Neut # (Auto) (8771-5396) /uL Lymph # (Auto) (3213-2401) /uL Evans # (Auto) (0-900) /uL Eos # (Auto) (0-450) /uL Baso # (Auto) (0-100) /uL PT 63.4 H (10.1-12.7) SECONDS INR 5.3 H* (0.9-1.3) APTT 47 H (26.4-36.2) SECONDS ABG pH (7.35-7.45) ABG pCO2 (35-45) mmHg ABG pO2 (80-100) mmHg ABG HCO3 (22-26) mmol/L ABG Total CO2 (21-31) mmol/L ABG O2 Saturation (95-100) % ABG Base Excess (-2-2) mmol/L FiO2 Sodium 131 L (137-145) mmol/L Potassium 4.9 (3.4-5.1) mmol/L Chloride 96 L (98-107) mmol/L Carbon Dioxide 23 (22-32) mmol/L BUN 39 H (9-20) mg/dL Creatinine 1.20 (0.66-1.25) mg/dL Estimated GFR 58.0 L (>60) mL/min BUN/Creatinine Ratio 32.5 H (6-22) Glucose 126 H (80-110) mg/dL Lactate 1.7 (0.7-2.1) mmol/L Calcium 8.8 (8.4-10.2) mg/dL Magnesium (1.6-2.3) mg/dL Total Bilirubin 1.3 (0.2-1.3) mg/dL AST 31 (17-59) IU/L ALT 38 (<50) IU/L Alkaline Phosphatase 61 (38-126) U/L Total Creatine Kinase (55-170) U/L CK-MB (CK-2) CK-MB (CK-2) Rel Index Troponin I (0.01-0.034) ng/mL NT-Pro-B Natriuret Pep (<450) pg/mL Total Protein 6.6 (6.3-8.2) g/dL Albumin 3.6 (3.5-5.0) g/dL Globulin 3.0 (1.7-4.1) g/dL Albumin/Globulin Ratio 1.2 (1.0-2.8) Procalcitonin (<0.5) ng/mL 06/05/19 06/05/19 Range/Units 17:52 20:11 WBC (4.5-11.0) X10^3/uL RBC (4.5-5.9) X10^6/uL Hgb (13.5-17.5) g/dL Hct (41-53) % MCV (80-100) fL MCH (26-34) PG MCHC (30-36) % RDW (11.6-14.8) % Plt Count (150-400) X10^3/uL Neut % (Auto) (50-75) % Lymph % (Auto) (25-40) % Evans % (Auto) (3-14) % Eos % (Auto) (2-4) % Baso % (Auto) (0-2) % Neut # (Auto) (2198-5095) /uL Lymph # (Auto) (0312-1742) /uL Evans # (Auto) (0-900) /uL Eos # (Auto) (0-450) /uL Baso # (Auto) (0-100) /uL PT (10.1-12.7) SECONDS INR (0.9-1.3) APTT (26.4-36.2) SECONDS ABG pH 7.42 (7.35-7.45) ABG pCO2 34.3 L (35-45) mmHg ABG pO2 62 L (80-100) mmHg ABG HCO3 22 (22-26) mmol/L ABG Total CO2 23 (21-31) mmol/L ABG O2 Saturation 92 L (95-100) % ABG Base Excess -2.0 (-2-2) mmol/L FiO2 0.21 Sodium (137-145) mmol/L Potassium (3.4-5.1) mmol/L Chloride (98-107) mmol/L Carbon Dioxide (22-32) mmol/L BUN (9-20) mg/dL Creatinine (0.66-1.25) mg/dL Estimated GFR (>60) mL/min BUN/Creatinine Ratio (6-22) Glucose (80-110) mg/dL Lactate (0.7-2.1) mmol/L Calcium (8.4-10.2) mg/dL Magnesium (1.6-2.3) mg/dL Total Bilirubin (0.2-1.3) mg/dL AST (17-59) IU/L ALT (<50) IU/L Alkaline Phosphatase (38-126) U/L Total Creatine Kinase (55-170) U/L CK-MB (CK-2) CK-MB (CK-2) Rel Index Troponin I 0.053 H (0.01-0.034) ng/mL NT-Pro-B Natriuret Pep 1190 H (<450) pg/mL Total Protein (6.3-8.2) g/dL Albumin (3.5-5.0) g/dL Globulin (1.7-4.1) g/dL Albumin/Globulin Ratio (1.0-2.8) Procalcitonin (<0.5) ng/mL Urine Dip Bedside Urine Glucose Negative Bedside Urine Bilirubin - Negative Bedside Urine Ketone +/- 5 Urine Specific [place] 1.025 Bedside Urine Occult Blood - Negative Bedside Urine pH 5.5 Bedside Urine Protein +/- 15 Bedside Urine Urobilinogen - Negative Bedside Urine Nitrite - Negative Bedside Urine Leukocytes +/- 15 Esterase ECG Data Attestation: I personally reviewed and interpreted this ECG as follows: Interpretation: The EKG obtained on a June 05 at 16:1 3:08 a.m. reveals a sinus rhythm with a ventricular rate of 86. AR interval is 165 milliseconds and normal. QRS is normal appearing but 93 milliseconds in duration and QTC is normal at 402 milliseconds. The patient has borderline left axis deviation. There appears a Q-wave in lead III and V1 with inverted T-waves in lead V1. The patient has nonspecific ST elevations and coping in leads V4 V5. There are no acute diagnostic ST segment elevations of greater than 1 mm. The patient has low voltage. <Bradly Man, DO - Last Filed: 06/06/19 00:53> Lab Data Labs: Lab Results 06/05/19 06/05/19 06/05/19 Range/Units 16:36 16:36 16:36 WBC 13.5 H (4.5-11.0) X10^3/uL RBC 3.81 L (4.5-5.9) X10^6/uL Hgb 12.2 L (13.5-17.5) g/dL Hct 37.0 L (41-53) % MCV 97.0 (80-100) fL MCH 32.1 (26-34) PG MCHC 33.1 (30-36) % RDW 15.4 H (11.6-14.8) % Plt Count 389 (150-400) X10^3/uL Neut % (Auto) 82.3 H (50-75) % Lymph % (Auto) 7.5 L (25-40) % Evans % (Auto) 9.2 (3-14) % Eos % (Auto) 0.5 L (2-4) % Baso % (Auto) 0.5 (0-2) % Neut # (Auto) 94308 H (6673-8332) /uL Lymph # (Auto) 1000 L (3972-2320) /uL Evans # (Auto) 1200 H (0-900) /uL Eos # (Auto) 100 (0-450) /uL Baso # (Auto) 100 (0-100) /uL PT (10.1-12.7) SECONDS INR (0.9-1.3) APTT (26.4-36.2) SECONDS ABG pH (7.35-7.45) ABG pCO2 (35-45) mmHg ABG pO2 (80-100) mmHg ABG HCO3 (22-26) mmol/L ABG Total CO2 (21-31) mmol/L ABG O2 Saturation (95-100) % ABG Base Excess (-2-2) mmol/L FiO2 Sodium (137-145) mmol/L Potassium (3.4-5.1) mmol/L Chloride (98-107) mmol/L Carbon Dioxide (22-32) mmol/L BUN (9-20) mg/dL Creatinine (0.66-1.25) mg/dL Estimated GFR (>60) mL/min BUN/Creatinine Ratio (6-22) Glucose (80-110) mg/dL Lactate (0.7-2.1) mmol/L Calcium (8.4-10.2) mg/dL Magnesium 2.5 H (1.6-2.3) mg/dL Total Bilirubin (0.2-1.3) mg/dL AST (17-59) IU/L ALT (<50) IU/L Alkaline Phosphatase (38-126) U/L Total Creatine Kinase 32 L (55-170) U/L CK-MB (CK-2) TNP CK-MB (CK-2) Rel Index TNP Troponin I 0.052 H (0.01-0.034) ng/mL NT-Pro-B Natriuret Pep (<450) pg/mL Total Protein (6.3-8.2) g/dL Albumin (3.5-5.0) g/dL Globulin (1.7-4.1) g/dL Albumin/Globulin Ratio (1.0-2.8) Procalcitonin 0.13 (<0.5) ng/mL 06/05/19 06/05/19 06/05/19 Range/Units 16:36 16:36 16:36 WBC (4.5-11.0) X10^3/uL RBC (4.5-5.9) X10^6/uL Hgb (13.5-17.5) g/dL Hct (41-53) % MCV (80-100) fL MCH (26-34) PG MCHC (30-36) % RDW (11.6-14.8) % Plt Count (150-400) X10^3/uL Neut % (Auto) (50-75) % Lymph % (Auto) (25-40) % Evans % (Auto) (3-14) % Eos % (Auto) (2-4) % Baso % (Auto) (0-2) % Neut # (Auto) (4084-5333) /uL Lymph # (Auto) (4762-4273) /uL Evans # (Auto) (0-900) /uL Eos # (Auto) (0-450) /uL Baso # (Auto) (0-100) /uL PT 63.4 H (10.1-12.7) SECONDS INR 5.3 H* (0.9-1.3) APTT 47 H (26.4-36.2) SECONDS ABG pH (7.35-7.45) ABG pCO2 (35-45) mmHg ABG pO2 (80-100) mmHg ABG HCO3 (22-26) mmol/L ABG Total CO2 (21-31) mmol/L ABG O2 Saturation (95-100) % ABG Base Excess (-2-2) mmol/L FiO2 Sodium 131 L (137-145) mmol/L Potassium 4.9 (3.4-5.1) mmol/L Chloride 96 L (98-107) mmol/L Carbon Dioxide 23 (22-32) mmol/L BUN 39 H (9-20) mg/dL Creatinine 1.20 (0.66-1.25) mg/dL Estimated GFR 58.0 L (>60) mL/min BUN/Creatinine Ratio 32.5 H (6-22) Glucose 126 H (80-110) mg/dL Lactate 1.7 (0.7-2.1) mmol/L Calcium 8.8 (8.4-10.2) mg/dL Magnesium (1.6-2.3) mg/dL Total Bilirubin 1.3 (0.2-1.3) mg/dL AST 31 (17-59) IU/L ALT 38 (<50) IU/L Alkaline Phosphatase 61 (38-126) U/L Total Creatine Kinase (55-170) U/L CK-MB (CK-2) CK-MB (CK-2) Rel Index Troponin I (0.01-0.034) ng/mL NT-Pro-B Natriuret Pep (<450) pg/mL Total Protein 6.6 (6.3-8.2) g/dL Albumin 3.6 (3.5-5.0) g/dL Globulin 3.0 (1.7-4.1) g/dL Albumin/Globulin Ratio 1.2 (1.0-2.8) Procalcitonin (<0.5) ng/mL 06/05/19 06/05/19 Range/Units 17:52 20:11 WBC (4.5-11.0) X10^3/uL RBC (4.5-5.9) X10^6/uL Hgb (13.5-17.5) g/dL Hct (41-53) % MCV (80-100) fL MCH (26-34) PG MCHC (30-36) % RDW (11.6-14.8) % Plt Count (150-400) X10^3/uL Neut % (Auto) (50-75) % Lymph % (Auto) (25-40) % [place] % (Auto) (3-14) % Eos % (Auto) (2-4) % Baso % (Auto) (0-2) % Neut # (Auto) (3594-7963) /uL Lymph # (Auto) (8684-0598) /uL [place] # (Auto) (0-900) /uL Eos # (Auto) (0-450) /uL Baso # (Auto) (0-100) /uL PT (10.1-12.7) SECONDS INR (0.9-1.3) APTT (26.4-36.2) SECONDS ABG pH 7.42 (7.35-7.45) ABG pCO2 34.3 L (35-45) mmHg ABG pO2 62 L (80-100) mmHg ABG HCO3 22 (22-26) mmol/L ABG Total CO2 23 (21-31) mmol/L ABG O2 Saturation 92 L (95-100) % ABG Base Excess -2.0 (-2-2) mmol/L FiO2 0.21 Sodium (137-145) mmol/L Potassium (3.4-5.1) mmol/L Chloride (98-107) mmol/L Carbon Dioxide (22-32) mmol/L BUN (9-20) mg/dL Creatinine (0.66-1.25) mg/dL Estimated GFR (>60) mL/min BUN/Creatinine Ratio (6-22) Glucose (80-110) mg/dL Lactate (0.7-2.1) mmol/L Calcium (8.4-10.2) mg/dL Magnesium (1.6-2.3) mg/dL Total Bilirubin (0.2-1.3) mg/dL AST (17-59) IU/L ALT (<50) IU/L Alkaline Phosphatase (38-126) U/L Total Creatine Kinase (55-170) U/L CK-MB (CK-2) CK-MB (CK-2) Rel Index Troponin I 0.053 H (0.01-0.034) ng/mL NT-Pro-B Natriuret Pep 1190 H (<450) pg/mL Total Protein (6.3-8.2) g/dL Albumin (3.5-5.0) g/dL Globulin (1.7-4.1) g/dL Albumin/Globulin Ratio (1.0-2.8) Procalcitonin (<0.5) ng/mL Urine Dip Bedside Urine Glucose Negative Bedside Urine Bilirubin - Negative Bedside Urine Ketone +/- 5 Urine Specific [place] 1.025 Bedside Urine Occult Blood - Negative Bedside Urine pH 5.5 Bedside Urine Protein +/- 15 Bedside Urine Urobilinogen - Negative Bedside Urine Nitrite - Negative Bedside Urine Leukocytes +/- 15 Esterase Imaging Data Chest x-ray: Radiologist's Impression: [address] [address] XRay Report Signed Patient: Teja Gage#: [id number] : 8Acct:[id number] Age/Sex: 84 / MDate of Service: 06/05/19 Loc: ED Accession Number: [id number] Procedure: XR chest 2V Ordering Provider: Berhane Chapman MD PROCEDURE: XR CHEST 2V INDICATIONS: dyspnea, fluid retention, recent h/o of pneumonia TECHNIQUE: 2 views of the chest were acquired. COMPARISON: None. FINDINGS: Surgical changes and devices: None. Lungs and pleura: Small left pleural effusion with adjacent atelectasis. No pneumothorax. Scattered atelectasis. Mediastinum: Mediastinal contours are normal. Heart size is normal. Bones and chest wall: No suspicious bony abnormalities. Soft tissues appear unremarkable. IMPRESSION: Small left pleural effusion with adjacent atelectasis Dictated by: Jaime Oconnor M.D. on 06/05/2019 at 16:57 Approved by: Jaime Oconnor M.D. on 06/05/2019 at 16:59 MDM Narrative Medical decision making narrative: Dr man: Received turned over, reviewed patient's history and physical and labs and radiologic studies. Has an elevated BNP. Chemistry unremarkable. Patient adamantly denies chest pain. Troponin slightly elevated. Discussed the case with Cardiology from [facility] who recommended admitting, trending enzymes, echocardiogram. Patient was ordered Lasix. Discussed the case with [employer] Ori merritt hospitalist to accept. Discharge Plan Departure Patient Disposition: Admitted as Observation Clinical Impression: Elevated troponin I level, Polymyalgia rheumatica, Acute dyspnea, Non-STEMI (non-ST elevated myocardial infarction), Edema, peripheral Discharge Date/Time: 06/05/19 21:38 Referrals: Bradly Landa [Primary Care Provider] - Admit Date/Time: 06/05/19 20:48 Admit Provider: Diaz Rehman
[2019-06-05 18:21] LABS: NT-proBNP (BNP-Adult 18+) 1190 pg/mL (<450); Troponin I 0.053 ng/mL (0.01-0.034)
[2019-06-05 19:09] LABS: PTT Partial Thromboplastin Tim 47 SECONDS (26.4-36.2)
[2019-06-05 19:16] LABS: Alanine Aminotransferase 38 IU/L (<50); Albumin 3.6 g/dL (3.5-5.0); Albumin Globulin Ratio 1.2 (1.0-2.8); Alkaline Phosphatase 61 U/L (38-126); Aspartate Aminotransferase 31 IU/L (17-59); BUN Creatinine Ratio 32.5 (6-22); Bilirubin Total 1.3 mg/dL (0.2-1.3); Blood Urea Nitrogen 39 mg/dL (9-20); Calcium 8.8 mg/dL (8.4-10.2); Carbon Dioxide 23 mmol/L (22-32); Chloride 96 mmol/L (98-107); Glucose 126 mg/dL (80-110); HEMOLYSIS < 15 (0-50); Potassium 4.9 mmol/L (3.4-5.1); Sodium 131 mmol/L (137-145); Total Protein 6.6 g/dL (6.3-8.2)
[2019-06-05 19:17] LABS: INR 5.3 (0.9-1.3); Prothrombin Time 63.4 SECONDS (10.1-12.7)
--- NOTE | 2019-06-05 19:35 | PC.NURSE ---
RT at bedside for ABG
[2019-06-05] MEDS: FUROSEMIDE 40 MG/4 ML VIAL IV (19:56)
[2019-06-05 20:25] LABS: Fractionated Inspired Oxygen 0.21; HCO3 ABG 22 mmol/L (22-26); Oxygen Saturation ABG 92 % (95-100); PCO2 ABG 34.3 mmHg (35-45); PO2 ABG 62 mmHg (80-100); TCO2 ABG 23 mmol/L (21-31); pH ABG 7.42 (7.35-7.45)
--- NOTE | 2019-06-05 23:22 | DI.ECHO.S_ITS ---
[facility] +---------+ Hospital +---------+ : : [address] : : : : [id number] : : : : Phone: [phone] Echocardiogram Report + + :Name: AMITA JIMENEZ Study Date: 06/06/2019 Height: 70 in : :[facility] Weight: 212 lb: : Gender: Male BSA: 2.1 m2 : :: 1935 Age: 84 yrs : :Reason For Study: Elevated Troponin : :Ordering Physician: Bryant : :Hospitalist Performed By: Mich Partida : :Referring: MICKIE PALACIOS : + + Interpretation Summary The left ventricle is normal in size. The ejection fraction is estimated to be 60-65%. In some of the views septal bounce is present. The right ventricle is at the upper limits of normal in size. The right ventricular systolic function is normal. No significant valvular pathology seen. The IVC is dilated (diameter is greater than 2.1 cm) and it collapses less than 50% with a sniff. This suggests a high right atrial pressure of 15 mm Hg. There appears to be overall small to moderate circumferential pericardial effusion with fibrinous echogenic material. No obvious diastolic RV or right atrial collapse. However IVC is dilated and in some of the views there is a septal bounce which suggest some evidence of increased intrapericardial pressure. Based on tissue Doppler and Doppler evaluation of mitral valve, no obvious constrictive features. Clinical correlation is recommended. Procedure: A two-dimensional transthoracic echocardiogram with color flow and Doppler was performed. The study quality was technically adequate. There is no prior echocardiogram noted for this patient. The heart rate ranged between 80-112 bpm during the study. The patient was in normal sinus rhythm during the exam. Left Ventricle: The left ventricle is normal in size. There is normal left ventricular wall thickness. There is no thrombus. Left ventricular systolic function is normal. The ejection fraction is estimated to be 60-65%. In some of the views septal bounce is present. Diastolic parameters suggest a relaxation abnormality of the left ventricle, consistent with probable normal filling pressures. Right Ventricle: The right ventricle is at the upper limits of normal in size. The right ventricular systolic function is normal. Atria: The left atrial size is normal. The right atrium is mildly dilated. The interatrial septum is intact with no evidence for an atrial septal defect. Mitral Valve: There is mild mitral annular calcification. There is mild mitral regurgitation. Aortic Valve: There is mild aortic valve sclerosis. The aortic valve is trileaflet. The aortic valve opens well. There is discrete nodular thickening of the non- coronary cusp. No aortic regurgitation is present. Tricuspid Valve: The tricuspid valve is normal in structure and function. There is trace tricuspid regurgitation. Pulmonary artery pressures cannot be estimated because of the lack of a measurable TR jet velocity. Pulmonic Valve: The pulmonic valve is not well seen, but is grossly normal. There is trace pulmonic regurgitation. Great Vessels: The aortic root is normal size. The dimensions of the ascending aorta are normal. The pulmonary artery is normal size. The IVC is dilated (diameter is greater than 2.1 cm) and it collapses less than 50% with a sniff. This suggests a high right atrial pressure of 15 mm Hg. Pericardium/ Pleura There is a small to moderate pericardial effusion noted. There appears to be overall small to moderate circumferential pericardial effusion with fibrinous echogenic material. No obvious diastolic RV or right atrial collapse. However IVC is dilated and in some of the views there is a septal bounce which suggest some evidence of increased intrapericardial pressure. Based on tissue Doppler and Doppler evaluation of mitral valve, no obvious constrictive features. Clinical correlation is recommended. There is no pleural effusion. MMode/2D Measurements & Calculations LVIDd: 4.5 cm LVOT diam: 2.3 cm LVIDs: 3.2 cm Ao root diam: 3.5 cm FS: 28.1 % Aortic Jxn: 3.0 cm EPSS: 0.45 cm asc Aorta Diam: 3.2 cm IVSd: 1.5 cm LVPWd: 1.5 cm LV arias. diameter/BSA (cm/m^2): 2.1 LV sys. diameter/BSA (cm/m^2): 1.5 LA A2 area: 18.8 cm2 RA long axis: 6.1 cm LA A4 area: 26.7 cm2 RA area: 22.4 cm2 LA length (vol): 6.4 cm RA vol: 70.0 ml LA vol: 66.5 ml RA : 32.7 ml/m2 LA vol index: 31.1 ml/m2 IVC diam: 2.9 cm TAPSE: 2.3 cm Doppler Measurements & Calculations Ao V2 max: 87.3 cm/sec LVOT Max Elvis: 79.5 cm/sec Ao V2 mean: 59.7 cm/sec LV V1 max P.5 mmHg Ao max P.0 mmHg LV V1 VTI: 17.2 cm Ao mean P.6 mmHg CHET(I,D): 3.9 cm2 Ao V2 VTI: 17.9 cm CHET(V,D): 3.7 cm2 sev ratio: 0.97 CHET indexed to BSA (cm^2/m^2): 1.8 MV E max elvis: 58.8 cm/sec PA V2 max: 57.2 cm/sec MV A max elvis: 77.9 cm/sec PA V2 mean: 44.8 cm/sec MV E/A: 0.76 PA mean P.86 mmHg Med Peak E' Elvis: 7.3 cm/sec PA Accel Time: 0.09 sec E/E' med: 8.0 Lat Peak E' Elvis: 7.2 cm/sec E/E' lat: 8.1 E/e' average: 8.1 MV dec time: 0.23 sec SV(LVOT): 70.4 ml Reading Physician:01:30 PM
--- NOTE | 2019-06-05 23:35 | P.HP_ITS ---
History of Present Illness History of Present Illness Date Patient Seen: 06/05/19 Time Patient Seen: 23:00 Chief complaint: PNUMONIA Narrative: Mr. Teja Gage is an 84-year-old male with history significant for atrial fibrillation anticoagulated on warfarin, hypertension, hyperlipidemia, history of gout as ulcer and gout who was sent to the ER prior his primary care physician with shortness of breath. Patient was recently hospitalized at [facility] for treatment of pneumonia. He was discharged 1 week ago and reports doing well. He subsequently developed progressive shortness of breath over the last several days coincidentally occurring when he injected his methotrexate on Tuesday the patient is concerned of recurrent pneumonia. Patient has had associated complaints of headaches and sore throat and chronic cough. He has had chills but reports a 1 degree temperature. He has no current complaints of chest pain and has palpitations with a history of atrial fibrillation. He has shortness of breath and dry, nonproductive cough as above but denies wheezing. He has no complaints of abdominal pain, heartburn, nausea or vomiting. He denies urinary symptoms and had diarrhea that has just recently resolved he attributes to his antibiotic therapy. He has chronic bilateral lower extremity edema. Upon arrival to the ER the patient is afebrile with temperature 97.3?, heart rate of 91, blood pressure 127/76, respiratory rate rate of 23 saturating 97% on room air. Chest x-rays obtained which finds small left pulmonary effusion adjacent atelectasis, heart size is normal. ABG of stained which finds a pH of 7.42, pCO2 34, PO2 of 62, bicarb 22 with base excess of -2 on room air. Twelve lead EKG reveals sinus rhythm with frequent PACs with ventricular rate of [address] changes no indications of acute ischemia or infarct. He has elevated white blood cell count to 13.5, hemoglobin of 12.2, hematocrit of 37.0 platelets of 389. His supratherapeutic on coagulation with a PT of 63.4, INR of 5.3 and PTT of 47. On chemistries hyponatremic 131 the potassium 0.9, BUN of 39 and creatinine of 1.2. His nonfasting glucose is 126. He has lactic acid 1.7, procalcitonin is 0.13 and his magnesium is 2.5. He has a total CPK of 32 with a troponin of 0.053. BNP is 1190. Requested consult from Cardiology which is obtained through the ED. No new recommendations been received. The patient is admitted to the medicine service for acute hypoxic respiratory failure and acute kidney injury. Patient History Medical History Atrial fibrillation (Acute) Cholelithiasis (Acute) Chronic anticoagulation (Acute) Gout (Acute) History of gastric ulcer (Acute) History of tobacco use (Acute) Hyperlipidemia (Acute) Hypertension (Acute) Obesity (Acute) Polymyalgia rheumatica (Acute) Surgical History History of laparotomy (Acute) Family & Social History Family History Mother Hypertension Heart disease Diabetes mellitus Social History: household members spouse,other Prior Living Arrangements House Safety & Behavioral: Feels Safe in Current Yes Environment Been Physically Hurt or No Threatened By a Person Suicidal Ideation Description None Suicide Plan Description No Plan Tobacco & Substance use: Smoking Status Former smoker alcohol intake former alcohol intake frequency holiday/special occasion Substance Use Type does not use Comment: The patient lives in a single family home with his to whom has bee n for 22 years. He endorses a family history his father having cirrhosis passing when the age of 60. His mother had hypertension heart disease and diabetes. He has no siblings and has a daughter who is in good health. Smoking: Past smoker quitting many years ago Alcohol: Patient consumes alcohol rarely Substance use: The patient denies recreational pharmaceuticals herbal or cannabis products. Advanced directives: The patient has no formal advanced directive. He states his desire to be FULL CODE. He designates his to be his surrogate decision maker. Meds Home Medications and Allergies Home Medications Medication Instructions Recorded Confirmed Type hydrochlorothiazide 25 mg PO QAM #90 tab 08/26/16 06/05/19 Rx acetaminophen 1,000 mg PO TID 05/04/18 05/31/18 History amlodipine [Norvasc] 5 mg PO QPM 05/04/18 06/05/19 History ascorbic acid (vitamin C) 500 mg PO BID 05/04/18 05/31/18 History aspirin 81 mg PO DAILY 05/04/18 05/31/18 History finasteride 5 mg PO DAILY 05/04/18 06/05/19 History fosinopril 20 mg PO BID 05/04/18 06/05/19 History lovastatin 40 mg PO QPM 05/04/18 06/05/19 History methotrexate sodium (PF) 1 ml IM QWEEK 05/04/18 05/31/18 History multivitamin [One Daily 1 tab PO DAILY 05/04/18 05/31/18 History Multivitamin] potassium chloride 20 meq PO DAILY 05/04/18 06/05/19 History sotalol 40 mg PO BID 05/04/18 05/31/18 History tamsulosin [Flomax] 0.8 mg PO QPM 05/04/18 05/31/18 History warfarin 2.5 mg PO MOWEFR 05/04/18 05/31/18 History warfarin [Jantoven] 5 mg PO SUTUTHSA 05/04/18 05/31/18 History allopurinol 300 mg PO DAILY 06/05/19 06/05/19 History gabapentin 100 mg PO TID 06/05/19 06/05/19 History metoprolol tartrate 25 mg PO TID 06/05/19 History nitroglycerin 0.4 mg SUBLINGUAL PRN PRN 06/05/19 06/05/19 History omeprazole 20 mg PO DAILY 06/05/19 06/05/19 History warfarin [Jantoven] 06/05/19 History Allergies Allergy/AdvReac Type Severity Reaction Status Date / Time latex [LATEX] Allergy Mild Rash Verified 05/15/18 15:59 Review of Systems Review of Systems Narrative: All systems reviewed and found unremarkable under discussed in the HPI above. Exam Vital Signs (past 8 hours): - 06/05/19 21:24 06/05/19 21:40 06/06/19 00:15 Temperature 98.8 F 97.8 F Pulse Rate 120 H 90 81 Respiratory Rate 25 H 18 18 Blood Pressure 121/76 117/63 116/64 Pulse Oximetry 93 92 91 Oxygen Delivery Method Room Air Oxygen Flow Rate 0 Narrative Exam Narrative: GENERAL APPEARANCE: well developed, overweight male resting quietly in no acute distress. HEENT: Normocephalic, PERRLA, arcus senilis, conjunctiva clear, EOMs intact without nystagmus, no sinus tenderness to percussion, no rhinorrhea, mucous membranes are moist and pink without lesions or exudate. NECK/THYROID: neck supple, no JVD, no carotid bruit, no thyromegaly, trachea midline. LYMPH NODES: no cervical or supraclavicular lymphadenopathy. SKIN: [place], warm and dry, scattered areas of ecchymoses. HEART: Irregularly irregular rhythm, S1-S2, 1/6 murmur, no rubs or gallops, brisk capillary refill, bilateral 2+ pedal pitting edema to the knee LUNGS: Diminished but clear on auscultation bilaterally, no coarseness crackles or wheezing, persistent dry nonproductive cough present CHEST: Symmetrical movement, no accessory muscle use, good tidal volume. ABDOMEN: Soft, no distention, no abdominal tenderness, no guarding or peritoneal signs, no organomegaly, no flank or suprapubic tenderness, active bowel tones. EXTREMITIES: moves all extremities, strength is 5/5 and symmetrical, no deformities or joint effusions. NEUROLOGIC: AAO x4, no focal neurologic deficits, cranial nerves II-XII grossly intact, sensation intact to light touch. PSYCH: Pleasant, cooperative, appropriate with stable behavior Objective Labs Result Diagrams: 06/05/19 16:36 06/05/19 16:36 Labs: Laboratory Results - last 24 hr 06/05/19 06/05/19 06/05/19 16:36 16:36 16:36 WBC 13.5 H RBC 3.81 L Hgb 12.2 L Hct 37.0 L MCV 97.0 MCH 32.1 MCHC 33.1 RDW 15.4 H Plt Count 389 Neut % (Auto) 82.3 H Lymph % (Auto) 7.5 L [place] % (Auto) 9.2 Eos % (Auto) 0.5 L Baso % (Auto) 0.5 Neut # (Auto) [address] H Lymph # (Auto) 1000 L [place] # (Auto) 1200 H Eos # (Auto) 100 Baso # (Auto) 100 PT INR APTT ABG pH ABG pCO2 ABG pO2 ABG HCO3 ABG Total CO2 ABG O2 Saturation ABG Base Excess FiO2 Sodium Potassium Chloride Carbon Dioxide BUN Creatinine Estimated GFR BUN/Creatinine Ratio Glucose Lactate Calcium Magnesium 2.5 H Total Bilirubin AST ALT Alkaline Phosphatase Total Creatine Kinase 32 L CK-MB (CK-2) TNP CK-MB (CK-2) Rel Index TNP Troponin I 0.052 H NT-Pro-B Natriuret Pep Total Protein Albumin Globulin Albumin/Globulin Ratio Procalcitonin 0.13 Chlamy pneumoniae PCR Adenovirus (PCR) B.parapertussis DNA PCR Coronavirus OC43 (PCR) Coronavirus HKU1 (PCR) Coronavirus 229E (PCR) Coronavirus NL63 (PCR) Human Metapneumovir PCR Influenza Type A (PCR) Influenza Type B (PCR) M. pneumoniae (PCR) Parainfluenza 1 (PCR) Parainfluenza 2 (PCR) Parainfluenza 3 (PCR) Parainfluenza 4 (PCR) RSV (PCR) Entero/Rhino (PCR) 06/05/19 06/05/19 06/05/19 16:36 16:36 16:36 WBC RBC Hgb Hct MCV MCH MCHC RDW Plt Count Neut % (Auto) Lymph % (Auto) [place] % (Auto) Eos % (Auto) Baso % (Auto) Neut # (Auto) Lymph # (Auto) [place] # (Auto) Eos # (Auto) Baso # (Auto) PT 63.4 H INR 5.3 H* APTT 47 H ABG pH ABG pCO2 ABG pO2 ABG HCO3 ABG Total CO2 ABG O2 Saturation ABG Base Excess FiO2 Sodium 131 L Potassium 4.9 Chloride 96 L Carbon Dioxide 23 BUN 39 H Creatinine 1.20 Estimated GFR 58.0 L BUN/Creatinine Ratio 32.5 H Glucose 126 H Lactate 1.7 Calcium 8.8 Magnesium Total Bilirubin 1.3 AST 31 ALT 38 Alkaline Phosphatase 61 Total Creatine Kinase CK-MB (CK-2) CK-MB (CK-2) Rel Index Troponin I NT-Pro-B Natriuret Pep Total Protein 6.6 Albumin 3.6 Globulin 3.0 Albumin/Globulin Ratio 1.2 Procalcitonin Chlamy pneumoniae PCR Adenovirus (PCR) B.parapertussis DNA PCR Coronavirus OC43 (PCR) Coronavirus HKU1 (PCR) Coronavirus 229E (PCR) Coronavirus NL63 (PCR) Human Metapneumovir PCR Influenza Type A (PCR) Influenza Type B (PCR) M. pneumoniae (PCR) Parainfluenza 1 (PCR) Parainfluenza 2 (PCR) Parainfluenza 3 (PCR) Parainfluenza 4 (PCR) RSV (PCR) Entero/Rhino (PCR) 06/05/19 06/05/19 06/06/19 17:52 20:11 00:47 WBC RBC Hgb Hct MCV MCH MCHC RDW Plt Count Neut % (Auto) Lymph % (Auto) [place] % (Auto) Eos % (Auto) Baso % (Auto) Neut # (Auto) Lymph # (Auto) [place] # (Auto) Eos # (Auto) Baso # (Auto) PT INR APTT ABG pH 7.42 ABG pCO2 34.3 L ABG pO2 62 L ABG HCO3 22 ABG Total CO2 23 ABG O2 Saturation 92 L ABG Base Excess -2.0 FiO2 0.21 Sodium Potassium Chloride Carbon Dioxide BUN Creatinine Estimated GFR BUN/Creatinine Ratio Glucose Lactate Calcium Magnesium Total Bilirubin AST ALT Alkaline Phosphatase Total Creatine Kinase CK-MB (CK-2) CK-MB (CK-2) Rel Index Troponin I 0.053 H NT-Pro-B Natriuret Pep 1190 H Total Protein Albumin Globulin Albumin/Globulin Ratio Procalcitonin Chlamy pneumoniae PCR Not detected Adenovirus (PCR) Not detected B.parapertussis DNA PCR Not detected Coronavirus OC43 (PCR) Not detected Coronavirus HKU1 (PCR) Not detected Coronavirus 229E (PCR) Not detected Coronavirus NL63 (PCR) Not detected Human Metapneumovir PCR Not detected Influenza Type A (PCR) Not detected Influenza Type B (PCR) Not detected M. pneumoniae (PCR) Not detected Parainfluenza 1 (PCR) Not detected Parainfluenza 2 (PCR) Not detected Parainfluenza 3 (PCR) Not detected Parainfluenza 4 (PCR) Not detected RSV (PCR) Not detected Entero/Rhino (PCR) Not detected Assessment & Plan Assessment & Plan narrative: This is an 82-year-old male patient who presents to the hospital per his primary care provider with shortness of breath concern for recurrent pneumonia following discharge from [facility] and telling him or his admitted for pneumonia. 1. Acute respiratory of failure with hypoxia, present on admission, active -patient presents with tachypnea at 23 breaths minute and shortness of breath and protracted cough. -chest x-ray finds left pleural effusion adjacent atelectasis scattered atelectasis but no evidence of pulmonary edema or infiltrates. -ABG obtained with pH of 7.42, P CO2 of 34, PO2 62, bicarb of 22, base excess -2 on room air. -emergency department the patient received for nebulizer treatments without significant improvement continued complaint of cough. -patient received Solu-Medrol 125 mg IV. -will obtain respiratory PCR panel. -benzonatate 200 mg t.i.d. as needed for cough 2. Congestive heart failure, unknown if acute or chronic, present on admission, active. -Patient's history of atrial fibrillation currently in sinus rhythm with PACs, irregular irregular rhythm is appreciated time for exam. -no evidence of heart failure on imaging or on exam. -patient denies chest pain endorses chronic bilateral lower extremity swelling. -patient with elevated BNP of 1190, total CK is 32 and troponin of elevated in stable at 0.053 in the setting of impaired renal function. -receive 40 mg of Lasix IV in the emergency department -will continue patient's routine hydrochlorothiazide 25 mg daily. 3. Acute kidney injury, present on admission, active -Patient with previous good renal function with a baseline creatinine of 0.7. BUN on admission is 39 with a creatinine 1.2. -Will avoid renal toxic agents and renally dose medications as indicated. -will closely monitor renal function 4. Paroxysmal atrial fibrillation, present on admission, active -Patient with history of peptic atrial fibrillation, 12 lead EKG demonstrates sinus rhythm with PACs, patient with irregularly irregular rhythm at time of exam. -patient without chest pain -will continue patient's home regimen of metoprolol 37.5 mg twice daily, sotalol 40 mg twice daily. 5. Supratherapeutic INR, acute, present on admission, active -Patient is currently on warfarin therapy 2.5 mg on Tuesday and Tuesday, 5 mg Tuesday and Tuesday- -INR today is 5.3. -patient with bruising of forearms but no other reports of untoward bleeding. -warfarin is held will recheck INR until within therapeutic range. 6. Essential hypertension, chronic, stable -good blood pressure controlled demonstrated upon admission with a blood pressure 127/76. -continue home regimen of fosinopril 20 mg daily, amlodipine 5 mg each evening, patient also receiving metoprolol 37.5 mg twice daily. 7. Hyperlipidemia, chronic, presumed stable. -will continue patient's home regimen of lovastatin 40 mg daily. 8. Benign prostatic hypertrophy, chronic, stable -patient denies urinary symptoms -continue home regimen of finasteride 5 mg daily and tamsulosin 0.4 mg nightly. VTE prophylaxis: SCDs, chemical prophylaxis contraindicated due to his supratherapeutic INR Diet: Heart healthy IVF: Saline lock Patient is admitted to the hospital due to the severity of his symptoms and risk for potential complications and adverse events. The patient is admitted as observation with an expected length of stay less than 2 midnights. Scores GCS [place] coma scale eye opening: Spontaneous [place] coma scale verbal response: Orientated [place] coma scale motor response: Obey commands Mariusz coma scale total score: 15
[2019-06-06] VITALS (7 sets, daily range): BP systolic 113–131; BP diastolic 55–70; PULSE 73–91; RESP 16–18; TEMP 36.4–37; O2SAT 91–95; BMI 30.4
[2019-06-06] MEDS: SOTALOL 80 MG TABLET 40 MG PO ×3 (00:37→20:32)
[2019-06-06] MEDS: METOPROLOL IR 25 MG TABLET 37.5 MG PO ×3 (00:40→20:34)
[2019-06-06] MEDS: BENZONATATE 100 MG CAPSULE 200 MG PO ×2 (00:41→20:35)
[2019-06-06 02:04] LABS: Adenovirus Not Detected (Not Detect); Bordetella pertussis Not Detected (Not Detect); Chlamydophila pneumoniae Not Detected (Not Detect); Coronavirus 229E Not Detected (Not Detect); Coronavirus HKU1 Not Detected (Not Detect); Coronavirus NL 63 Not Detected (Not Detect); Coronavirus OC43 Not Detected (Not Detect); Human Metapneumovirus Not Detected (Not Detect); Human Rhinovirus/Enterovirus Not Detected (Not Detect); Influenza A Not Detected (Not Detect); Influenza B Not Detected (Not Detect); Mycoplasma pneumoniae Not Detected (Not Detect); Parainfluenza Virus 1 Not Detected (Not Detect); Parainfluenza Virus 2 Not Detected (Not Detect); Parainfluenza Virus 3 Not Detected (Not Detect); Parainfluenza Virus 4 Not Detected (Not Detect); Respiratory Syncytial Virus Not Detected (Not Detect)
[2019-06-06] MEDS: SODIUM CHLORIDE 0.9% 1,000 ML 100 ML IV (04:41)
[2019-06-06] MEDS: CODEINE/ACETAMINOPHEN 30/300 TABLET 1 TAB PO ×2 (04:42→22:45)
--- NOTE | 2019-06-06 05:03 | PC.ADMIT ---
Safe hand off from Denise BARRERA, ED. Patient arrived via stretcher from ED and transferred and pivoted to bedside. Patient VSS, tends to run tachy in the 80-90. Patient has intermittent cough, dry, lung sounds clear bilaterally. Patient has bilateral lower leg edema which is weeping and tight, 2+pitting.Patient denies pain. Patient is hard of hearing and wears bilateral hearing aids. Patient was up to bathroom w/ 1 person assist, denies weakness, dizziness or light headedness. Pt is on tele: NS. is at bedside. Patient was educated about call light, bed is low and locked and bed alarm is on. Placement of bilateral compression stockings at 0500. [email or web address] [facility] Admission Note: The patient,Teja Gage,84 y/o, was given written information regarding hospital policies, unit procedures and contact persons. Patient's smoking status: Former smoker. Vital Signs - 8 hr 06/05/19 21:24 06/05/19 21:40 06/06/19 00:15 Temperature 98.8 F 97.8 F Pulse Rate 120 H 90 81 Respiratory Rate 25 H 18 18 Blood Pressure 121/76 117/63 116/64 Pulse Oximetry 93 92 91 06/06/19 05:01 Temperature 97.5 F L Pulse Rate 73 Respiratory Rate 18 Blood Pressure 113/62 Pulse Oximetry 93
[2019-06-06 05:37] LABS: Add Manual Diff / Slide Review NO; Basophils Absolute Auto 0 /uL (0-100); Basophils Percent Auto 0.4 % (0-2); Eosinophils Absolute Auto 0 /uL (0-450); Hematocrit 35.1 % (41-53); Hemoglobin 11.9 g/dL (13.5-17.5); Lymphocytes Absolute Auto 400 /uL (1100-4500); Lymphocytes Percent Auto 3.8 % (25-40); Mean Corpuscular Hemoglobin 32.6 PG (26-34); Mean Corpuscular Volume 95.7 fL (80-100); Monocytes Absolute Auto 300 /uL (0-900); Monocytes Percent Auto 2.7 % (3-14); Neutrophils Absolute Auto 10000 /uL (1500-7000); Neutrophils Percent Auto 93.1 % (50-75); Platelet Count 349 X10^3/uL (150-400); Red Blood Cell Count 3.66 X10^6/uL (4.5-5.9); White Blood Cell Count 10.7 X10^3/uL (4.5-11.0)
[2019-06-06 05:47] LABS: Blood Urea Nitrogen 40 mg/dL (9-20); Calcium 8.6 mg/dL (8.4-10.2); Carbon Dioxide 24 mmol/L (22-32); Chloride 99 mmol/L (98-107); Estimated Glomerular Filt Rate > 60.0 mL/min (>60); Glucose 214 mg/dL (80-110); HEMOLYSIS < 15 (0-50); Potassium 4.5 mmol/L (3.4-5.1); Sodium 133 mmol/L (137-145)
--- NOTE | 2019-06-06 05:52 | PC.NURSE ---
0200, patient c/o of cough bothering him. He said he takes codeine at times for cough. Marlo SMITH contacted and I asked for an order to help with cough. Marlo ordered a 1x now dose. When I went to give to patient he was sleeping. Patient awoke at 0400, Medication was given at that time to help with cough.
[2019-06-06] MEDS: TAMSULOSIN 0.4 MG CAPSULE PO (10:11)
[2019-06-06] MEDS: hydroCHLOROthiazide 25 MG TABLET PO (10:11)
[2019-06-06] MEDS: GABAPENTIN 100 MG CAPSULE PO ×3 (10:19→20:31)
[2019-06-06] MEDS: allopurinoL 300 MG TABLET PO (10:20)
[2019-06-06] MEDS: FOSINOPRIL 10 MG TABLET 20 MG PO ×2 (10:20→20:30)
[2019-06-06] MEDS: FINASTERIDE 5 MG TABLET PO (10:20)
[2019-06-06] MEDS: ACETAMINOPHEN 325 MG TABLET 650 MG PO (14:48)
--- NOTE | 2019-06-06 15:17 | DI.CT.S_ITS ---
PROCEDURE: CT CHEST W CON INDICATIONS: pericardial effusion, recent pneumonia TECHNIQUE: After the administration of intravenous contrast, 5 mm thick sections acquired from the pulmonary apices to the posterior costophrenic angles. 1 mm axial lung, 5 mm thick coronal and sagittal reformats and 7 mm axial MIP were acquired. For radiation dose reduction, the following was used: automated exposure control, adjustment of mA and/or kV according to patient size. COMPARISON: [facility], CR, XR CHEST 2V, 06/05/2019, 16:13. FINDINGS: Image quality: Excellent. Lungs and pleura: No definite acute air space opacities are found but there is alveolar consolidation of the retrocardiac left lung base. This is associated with bilateral small pleural effusions and no pneumothorax. Central and peripheral airways are patent and normal in caliber. Mediastinum: Heart size is normal. There is a moderate pericardial effusion, potentially exudative in appearance given its increased radiodensity above that of the pleural effusion nearby. It measures approximately 17-25 Hounsfield units where as the right pleural effusion measures less than 10 as does the left.. No mediastinal or hilar adenopathy by size criteria. Thoracic aorta and central pulmonary arteries are normal in size. Esophagus is normal in caliber. No hiatal hernia. Bones and chest wall: No suspicious bony lesions. No vertebral body compression fractures. No axillary or supraclavicular adenopathy by size criteria. Thyroid gland appears normal where well visualized. Abdomen: Visualized upper abdominal solid organs appear normal. Upper abdominal bowel loops are normal in caliber. IMPRESSION: Retrocardiac left lower lobe pneumonia at the deep costophrenic sulcus. Water density bilateral small pleural effusions. Mildly elevated radiodensity at the pericardial effusion which raises concern for exudative rather than transudative effusion. No pericardial or pleural masses are found, no mediastinal or hilar adenopathy is seen. Dictated by: Ori Petersen M.D. on 06/06/2019 at 17:26 Approved by: Ori Petersen M.D. on 06/06/2019 at 17:30
--- NOTE | 2019-06-06 15:23 | CM.DANOTE ---
DCP Brief Assessment Note Patient is an 84 year old male who was admitted on 06/05/19 for Pneumonia. Pt has [facility] for insurance and his PCP is Dr. Bradly Landa. EMR was reviewed. Per MD, pt here with respiratory issues and not stable for d/c yet today. SW attempted to meet bedside with pt and spouse but pt stating he needs to use the bedside urinal and RN came in to assist and spouse was bedside and staying overnight. Pt and spouse reside on [facility] and pt had been admitted about a year ago. Plan: SW to follow closely for bedside assessment with pt and spouse and to determine if pt will be safe for d/c home when medically stable. STELLA Guajardo
--- NOTE | 2019-06-06 15:35 | PC.NURSE ---
Patient ambulated with assistance today in [place] and tolerated well, states he is feeling better today. denies chest pain, shortness of breath or other complaint, other than he notes his edema is not better in his legs. Using urinal without difficulty. Call light within reach.
--- NOTE | 2019-06-06 16:12 | DIET.PN ---
Dietary Progress Note Assessment: 84y M admitted for SOB c new onset CHF referred to nutrition for CHF diet education Pt and reside on [facility]. [place] but will request lower sodium options per population needs. Pt used to do most of cooking, not much salt added, however now more reliance on processed foods and has heavier hand with salt. Pt and receptive to education, thankful for conversation HT: 177.8cm WT: 96.1kg BMI: 30.4 Labs: INR 5.3 H, NTProBNP 1190 H, Troponin1 0.053 H MNA:14 Tim:21 Nutrition Diagnosis: undesirable food choices (sodium) r/t nutrition related knowledge deficit aeb pt has chronic LE edema, pt reports reliance on processed food, pt's cooks with salt. Interventions: 1. Using handout, discussed need to limit sodium to 2g/d by not salting at the table and reducing processed foods or at least choosing low to no sodium options. Problem solved with pt and his on topic. 2. Encouraged pt to weight himself daily to weekly to assess if he is retaining water. Diet Order: sodium restriction 2g EER: 2100 kcal (-200kcal wt loss), 87g Pro (0.9g/kg elder), 2.5L fluids and depending on dr order Monitoring/Evaluations: POs, additional ed as requested
--- NOTE | 2019-06-06 16:32 | PM.PN.1 ---
Subjective Subjective Date Patient Seen: 06/06/19 Interval history: Patient is 84-year-old male with history of persistent atrial fibrillation, chronic anticoagulation, recent outside hospital admission for pneumonia admitted due to acute pleuritic chest pain, chills and progressive shortness of breath over the past several days. Patient received Solu-Medrol, IV Lasix x1 and albuterol nebulizer treatment. He states his shortness of breath is much better and he has not had any further chest pain since admission. He does complaint of swelling in his ankles since his last hospital admission. He denies cough, fever, or chills. He had transthoracic echo this a.m. which raised concern of small to moderate pericardial effusion and dilated IVC and in some views there is a septal bounce but no obvious diastolic RV or right atrial collapse. Exam Vital Signs (past 8 hours): - 06/06/19 13:00 06/06/19 15:45 Temperature 98.6 F 98.0 F Pulse Rate 78 81 Respiratory Rate 16 17 Blood Pressure 118/57 L 117/70 Pulse Oximetry 95 94 Oxygen Delivery Method Room Air Oxygen Flow Rate 0 Narrative Exam Narrative: General: Pleasant male who is hard of hearing lying in bed and in no acute distress Lungs: Breathing is nonlabored, clear to auscultation, no wheeze or crackles Heart: Normal S1 and S2, regular rhythm, no murmurs or pericardial friction rub Abdomen: Obese, nontender Extremities: There is mild to moderate pedal and ankle edema Neurological: Alert, cognizant, nonfocal Skin: No rash or petechia Objective Labs Result Diagrams: 06/06/19 05:26 06/06/19 05:26 Labs: Laboratory Results - last 24 hr 06/05/19 06/05/19 06/05/19 16:36 16:36 16:36 WBC 13.5 H RBC 3.81 L Hgb 12.2 L Hct 37.0 L MCV 97.0 MCH 32.1 MCHC 33.1 RDW 15.4 H Plt Count 389 Neut % (Auto) 82.3 H Lymph % (Auto) 7.5 L [place] % (Auto) 9.2 Eos % (Auto) 0.5 L Baso % (Auto) 0.5 Neut # (Auto) 88414 H Lymph # (Auto) 1000 L [place] # (Auto) 1200 H Eos # (Auto) 100 Baso # (Auto) 100 PT INR APTT ABG pH ABG pCO2 ABG pO2 ABG HCO3 ABG Total CO2 ABG O2 Saturation ABG Base Excess FiO2 Sodium Potassium Chloride Carbon Dioxide BUN Creatinine Estimated GFR BUN/Creatinine Ratio Glucose Lactate Calcium Magnesium 2.5 H Total Bilirubin AST ALT Alkaline Phosphatase Total Creatine Kinase 32 L CK-MB (CK-2) TNP CK-MB (CK-2) Rel Index TNP Troponin I 0.052 H NT-Pro-B Natriuret Pep Total Protein Albumin Globulin Albumin/Globulin Ratio Procalcitonin 0.13 Chlamy pneumoniae PCR Adenovirus (PCR) B.parapertussis DNA PCR Coronavirus OC43 (PCR) Coronavirus HKU1 (PCR) Coronavirus 229E (PCR) Coronavirus NL63 (PCR) Human Metapneumovir PCR Influenza Type A (PCR) Influenza Type B (PCR) M. pneumoniae (PCR) Parainfluenza 1 (PCR) Parainfluenza 2 (PCR) Parainfluenza 3 (PCR) Parainfluenza 4 (PCR) RSV (PCR) Entero/Rhino (PCR) 06/05/19 06/05/19 06/05/19 16:36 16:36 16:36 WBC RBC Hgb Hct MCV MCH MCHC RDW Plt Count Neut % (Auto) Lymph % (Auto) [place] % (Auto) Eos % (Auto) Baso % (Auto) Neut # (Auto) Lymph # (Auto) [place] # (Auto) Eos # (Auto) Baso # (Auto) PT 63.4 H INR 5.3 H* APTT 47 H ABG pH ABG pCO2 ABG pO2 ABG HCO3 ABG Total CO2 ABG O2 Saturation ABG Base Excess FiO2 Sodium 131 L Potassium 4.9 Chloride 96 L Carbon Dioxide 23 BUN 39 H Creatinine 1.20 Estimated GFR 58.0 L BUN/Creatinine Ratio 32.5 H Glucose 126 H Lactate 1.7 Calcium 8.8 Magnesium Total Bilirubin 1.3 AST 31 ALT 38 Alkaline Phosphatase 61 Total Creatine Kinase CK-MB (CK-2) CK-MB (CK-2) Rel Index Troponin I NT-Pro-B Natriuret Pep Total Protein 6.6 Albumin 3.6 Globulin 3.0 Albumin/Globulin Ratio 1.2 Procalcitonin Chlamy pneumoniae PCR Adenovirus (PCR) B.parapertussis DNA PCR Coronavirus OC43 (PCR) Coronavirus HKU1 (PCR) Coronavirus 229E (PCR) Coronavirus NL63 (PCR) Human Metapneumovir PCR Influenza Type A (PCR) Influenza Type B (PCR) M. pneumoniae (PCR) Parainfluenza 1 (PCR) Parainfluenza 2 (PCR) Parainfluenza 3 (PCR) Parainfluenza 4 (PCR) RSV (PCR) Entero/Rhino (PCR) 06/05/19 06/05/19 06/06/19 17:52 20:11 00:47 WBC RBC Hgb Hct MCV MCH MCHC RDW Plt Count Neut % (Auto) Lymph % (Auto) [place] % (Auto) Eos % (Auto) Baso % (Auto) Neut # (Auto) Lymph # (Auto) [place] # (Auto) Eos # (Auto) Baso # (Auto) PT INR APTT ABG pH 7.42 ABG pCO2 34.3 L ABG pO2 62 L ABG HCO3 22 ABG Total CO2 23 ABG O2 Saturation 92 L ABG Base Excess -2.0 FiO2 0.21 Sodium Potassium Chloride Carbon Dioxide BUN Creatinine Estimated GFR BUN/Creatinine Ratio Glucose Lactate Calcium Magnesium Total Bilirubin AST ALT Alkaline Phosphatase Total Creatine Kinase CK-MB (CK-2) CK-MB (CK-2) Rel Index Troponin I 0.053 H NT-Pro-B Natriuret Pep 1190 H Total Protein Albumin Globulin Albumin/Globulin Ratio Procalcitonin Chlamy pneumoniae PCR Not detected Adenovirus (PCR) Not detected B.parapertussis DNA PCR Not detected Coronavirus OC43 (PCR) Not detected Coronavirus HKU1 (PCR) Not detected Coronavirus 229E (PCR) Not detected Coronavirus NL63 (PCR) Not detected Human Metapneumovir PCR Not detected Influenza Type A (PCR) Not detected Influenza Type B (PCR) Not detected M. pneumoniae (PCR) Not detected Parainfluenza 1 (PCR) Not detected Parainfluenza 2 (PCR) Not detected Parainfluenza 3 (PCR) Not detected Parainfluenza 4 (PCR) Not detected RSV (PCR) Not detected Entero/Rhino (PCR) Not detected 06/06/19 06/06/19 05:26 05:26 WBC 10.7 RBC 3.66 L Hgb 11.9 L Hct 35.1 L MCV 95.7 MCH 32.6 MCHC 34.0 RDW 15.0 H Plt Count 349 Neut % (Auto) 93.1 H Lymph % (Auto) 3.8 L [place] % (Auto) 2.7 L Eos % (Auto) 0.0 L Baso % (Auto) 0.4 Neut # (Auto) 73459 H Lymph # (Auto) 400 L [place] # (Auto) 300 Eos # (Auto) 0 Baso # (Auto) 0 PT INR APTT ABG pH ABG pCO2 ABG pO2 ABG HCO3 ABG Total CO2 ABG O2 Saturation ABG Base Excess FiO2 Sodium 133 L Potassium 4.5 Chloride 99 Carbon Dioxide 24 BUN 40 H Creatinine 1.00 Estimated GFR > 60.0 BUN/Creatinine Ratio 40.0 H Glucose 214 H Lactate Calcium 8.6 Magnesium Total Bilirubin AST ALT Alkaline Phosphatase Total Creatine Kinase CK-MB (CK-2) CK-MB (CK-2) Rel Index Troponin I NT-Pro-B Natriuret Pep Total Protein Albumin Globulin Albumin/Globulin Ratio Procalcitonin Chlamy pneumoniae PCR Adenovirus (PCR) B.parapertussis DNA PCR Coronavirus OC43 (PCR) Coronavirus HKU1 (PCR) Coronavirus 229E (PCR) Coronavirus NL63 (PCR) Human Metapneumovir PCR Influenza Type A (PCR) Influenza Type B (PCR) M. pneumoniae (PCR) Parainfluenza 1 (PCR) Parainfluenza 2 (PCR) Parainfluenza 3 (PCR) Parainfluenza 4 (PCR) RSV (PCR) Entero/Rhino (PCR) Assessment & Plan Assessment & Plan narrative: Patient is 84-year-old male with history of persistent atrial fibrillation, chronic anticoagulation, recent outside hospital admission for pneumonia admitted due to acute pleuritic chest pain, chills and progressive shortness of breath over the past several days. 1. Acute pleuritic chest pain and dyspnea, present on admission -patient has symptom improvement which may be due to dose of IV steroid and Lasix he received on admission -chest x-ray with small left pleural effusion with adjacent atelectasis, normal WBC, low procalcitonin and absence of fever not suggestive of persistent pneumonia. CHF is also unlikely based on echo with normal LVEF and no pulmonary edema findings on x-ray or exam 2. Acute pericarditis -echo is concerning for acute pericarditis with presence of small to moderate exudative pericardial effusion, additionally he has dilated IVC and septal bounce in some views but no RV or RA collapse and he is hemodynamically stable with normal blood pressures which suggest tamponade less likely -dilated IVC also correlates with volume overload associated with patient's recent hospitalization, his LVEF is 60-65% with normal LV size on echo -report symptoms of pleuritic chest pain and dyspnea are suggestive of pericarditis which may be associated with his recent pneumonia -differential diagnosis of pericarditis also includes idiopathic, thyroid or autoimmune, and neoplastic causes -reviewed echo findings with Dr. Sinha, will work up further with thoracic CT, and blood work to include ESR, CRP, TSH; Dr. Sinha suggested to start patient on colchicine 0.6 mg q.d. if inflammatory markers are elevated and he is otherwise stable without signs of tamponade -if CT not indicative of tamponade, I will give him another dose of IV Lasix as he has peripheral edema consistent with volume overload -obtain previous records of [facility] hospitalization and any previous echo cardiograms, patient currently sees Dr. Ray for cardiology 3. Persistent atrial fibrillation, present on admission -patient in an out of atrial fibrillation with controlled rate -no significant troponin elevation and no ischemic findings are EKG -continue patient's sotalol 40 mg b.i.d. and metoprolol 37.5 mg b.i.d. 4. Chronic anticoagulation with supratherapeutic INR on admission -INR 5.3 on admission, patient is on warfarin 2.5 mg Tuesday and Tuesday, 5 mg Tuesday and Tuesday -hold warfarin and recheck INR in a.m. 5. Essential hypertension, chronic, stable -BP adequately controlled -continue home regimen of fosinopril 20 mg daily, amlodipine 5 mg each evening, patient also receiving metoprolol 37.5 mg twice daily. - 6. Hyperlipidemia, BPH -continue patient's lovastatin, finasteride and tamsulosin 7. Acute hyperglycemia -likely steroid related with a.m. glucose 214 after he got large dose of IV Solu-Medrol, whereas admission glucose was 126 -check hemoglobin A1c 8. Possible acute renal injury, present on admission -serum creatinine 1.2 verses 0.70 on 05/09/2018 which is not a recent baseline -current creatinine 1.0, continue to monitor
[2019-06-06 16:50] LABS: Prothrombin Time 55.7 SECONDS (10.1-12.7)
[2019-06-06 16:51] LABS: INR 4.7 (0.9-1.3)
[2019-06-06 16:53] LABS: Erythrocyte Sedimentation Rate 64 MM/HR (0-15)
[2019-06-06 17:00] LABS: C-Reactive Protein Quant 20.8 mg/dL (<1.0)
[2019-06-06] MEDS: LOVASTATIN 20 MG TABLET 40 MG PO (17:15)
[2019-06-06 17:20] LABS: Hemoglobin A1C% w Est Avg Glu 5.9 % (4.0-6.0)
[2019-06-06 18:44] LABS: Rheumatoid Factor 15.9 IU/mL (<12.0)
[2019-06-06] MEDS: COLCHICINE 0.6 MG TABLET PO (20:32)
[2019-06-06] MEDS: FUROSEMIDE 40 MG/4 ML VIAL IV (20:36)
--- NOTE | 2019-06-06 23:02 | PC.NURSE ---
Pain with cough Patient reported pain with cough in throat and chest. Patient rated pain a level 3. At 2034, 200 mg benzonatate administered. Patient reports no further pain with cough. Patient continues to have consistent cough. Patient requested codeine. At 2224, Nurse Rice talked to provider for codeine order. At 2244, codeine/ acetaminophen 30/300 administered.
[2019-06-07] VITALS (8 sets, daily range): BP systolic 118–127; BP diastolic 57–68; PULSE 57–77; RESP 16–20; TEMP 36.3–37; O2SAT 91–96
[2019-06-07] MEDS: PANTOPRAZOLE 20 MG TABLET PO (05:31)
[2019-06-07 05:38] LABS: Add Manual Diff / Slide Review NO; Basophils Absolute Auto 0 /uL (0-100); Basophils Percent Auto 0.2 % (0-2); Eosinophils Absolute Auto 0 /uL (0-450); Eosinophils Percent Auto 0.2 % (2-4); Hematocrit 34.7 % (41-53); Hemoglobin 11.3 g/dL (13.5-17.5); Lymphocytes Absolute Auto 800 /uL (1100-4500); Lymphocytes Percent Auto 5.2 % (25-40); Mean Corpuscular HGB Conc 32.7 % (30-36); Mean Corpuscular Hemoglobin 31.5 PG (26-34); Mean Corpuscular Volume 96.6 fL (80-100); Monocytes Absolute Auto 1200 /uL (0-900); Monocytes Percent Auto 7.9 % (3-14); Neutrophils Absolute Auto 13500 /uL (1500-7000); Neutrophils Percent Auto 86.5 % (50-75); Platelet Count 396 X10^3/uL (150-400); Red Cell Distribution Width 15.4 % (11.6-14.8); White Blood Cell Count 15.6 X10^3/uL (4.5-11.0)
[2019-06-07 05:43] LABS: INR 3.8 (0.9-1.3); Prothrombin Time 45.6 SECONDS (10.1-12.7)
[2019-06-07 05:51] LABS: BUN Creatinine Ratio 45.6 (6-22); Blood Urea Nitrogen 41 mg/dL (9-20); Calcium 8.9 mg/dL (8.4-10.2); Carbon Dioxide 28 mmol/L (22-32); Chloride 98 mmol/L (98-107); Estimated Glomerular Filt Rate > 60.0 mL/min (>60); Glucose 160 mg/dL (80-110); HEMOLYSIS < 15 (0-50); Potassium 3.7 mmol/L (3.4-5.1); Sodium 135 mmol/L (137-145)
[2019-06-07 06:06] LABS: Procalcitonin 0.09 ng/mL (<0.5)
[2019-06-07] MEDS: allopurinoL 300 MG TABLET PO (09:03)
[2019-06-07] MEDS: COLCHICINE 0.6 MG TABLET PO ×2 (09:03→20:09)
[2019-06-07] MEDS: FINASTERIDE 5 MG TABLET PO (09:03)
[2019-06-07] MEDS: GABAPENTIN 100 MG CAPSULE PO ×3 (09:04→20:11)
[2019-06-07] MEDS: FOSINOPRIL 10 MG TABLET 20 MG PO ×2 (09:04→20:12)
[2019-06-07] MEDS: METOPROLOL IR 25 MG TABLET 37.5 MG PO ×2 (09:05→20:10)
[2019-06-07] MEDS: hydroCHLOROthiazide 25 MG TABLET PO (09:05)
[2019-06-07] MEDS: TAMSULOSIN 0.4 MG CAPSULE PO (09:07)
[2019-06-07] MEDS: SOTALOL 80 MG TABLET 40 MG PO ×2 (09:07→20:12)
--- NOTE | 2019-06-07 10:34 | PM.PN.1 ---
Subjective Subjective Date Patient Seen: 06/07/19 Interval history: Patient is 84-year-old male with history of persistent atrial fibrillation, chronic anticoagulation, recent outside hospital admission for pneumonia admitted due to acute pleuritic chest pain, chills and progressive shortness of breath over the past several days. Patient received Solu-Medrol, IV Lasix x1 and albuterol nebulizer treatment. His transthoracic echo and chest CT showed small to moderate exudate pericardial effusion and dilated IVC. He has not had any hemodynamic instability or other definite indication of cardiac tamponade. Patient reports improvement in dyspnea and has not had any more pleuritic chest pain. However he does endorse some difficulty taking a deep breath and also got winded walking outside of room this morning. He has not had fever or cough. He notes improvement in ankle swelling after IV Lasix. Exam Vital Signs (past 8 hours): - 06/07/19 04:41 06/07/19 08:00 06/07/19 08:07 Temperature 98.6 F 98.4 F Pulse Rate 73 73 64 Respiratory Rate 16 17 Blood Pressure 127/65 126/57 L Pulse Oximetry 94 94 91 Oxygen Delivery Method Room Air Oxygen Flow Rate 0 Narrative Exam Narrative: General: Pleasant male who is hard of hearing lying in bed and in no acute distress Lungs: Breathing is nonlabored, clear to auscultation, no wheeze or crackles Heart: Normal S1 and S2, regular rhythm, no murmurs or pericardial friction rub Abdomen: Obese, nontender Extremities: There is minimal degree of ankle edema, much improved Neurological: Alert, cognizant, nonfocal Skin: No rash or petechia Objective Labs Result Diagrams: 06/07/19 05:24 06/07/19 05:24 Labs: Laboratory Results - last 24 hr 06/06/19 06/06/19 06/06/19 16:26 16:26 16:26 WBC RBC Hgb Hct MCV MCH MCHC RDW Plt Count Neut % (Auto) Lymph % (Auto) [place] % (Auto) Eos % (Auto) Baso % (Auto) Neut # (Auto) Lymph # (Auto) [place] # (Auto) Eos # (Auto) Baso # (Auto) ESR 64 H PT 55.7 H D INR 4.7 H* Sodium Potassium Chloride Carbon Dioxide BUN Creatinine Estimated GFR BUN/Creatinine Ratio Glucose Hemoglobin A1c Calcium C-Reactive Protein 20.8 H Procalcitonin TSH Rheumatoid Factor 06/06/19 06/06/19 06/06/19 16:26 16:26 16:26 WBC RBC Hgb Hct MCV MCH MCHC RDW Plt Count Neut % (Auto) Lymph % (Auto) [place] % (Auto) Eos % (Auto) Baso % (Auto) Neut # (Auto) Lymph # (Auto) [place] # (Auto) Eos # (Auto) Baso # (Auto) ESR PT INR Sodium Potassium Chloride Carbon Dioxide BUN Creatinine Estimated GFR BUN/Creatinine Ratio Glucose Hemoglobin A1c 5.9 Calcium C-Reactive Protein Procalcitonin TSH 0.80 Rheumatoid Factor 15.9 H 06/07/19 06/07/19 06/07/19 05:24 05:24 05:24 WBC 15.6 H RBC 3.60 L Hgb 11.3 L Hct 34.7 L MCV 96.6 MCH 31.5 MCHC 32.7 RDW 15.4 H Plt Count 396 Neut % (Auto) 86.5 H Lymph % (Auto) 5.2 L [place] % (Auto) 7.9 Eos % (Auto) 0.2 L Baso % (Auto) 0.2 Neut # (Auto) 92492 H Lymph # (Auto) 800 L [place] # (Auto) 1200 H Eos # (Auto) 0 Baso # (Auto) 0 ESR PT 45.6 H D INR 3.8 H Sodium 135 L Potassium 3.7 Chloride 98 Carbon Dioxide 28 BUN 41 H Creatinine 0.90 Estimated GFR > 60.0 BUN/Creatinine Ratio 45.6 H Glucose 160 H Hemoglobin A1c Calcium 8.9 C-Reactive Protein Procalcitonin TSH Rheumatoid Factor 06/07/19 05:24 WBC RBC Hgb Hct MCV MCH MCHC RDW Plt Count Neut % (Auto) Lymph % (Auto) [place] % (Auto) Eos % (Auto) Baso % (Auto) Neut # (Auto) Lymph # (Auto) [place] # (Auto) Eos # (Auto) Baso # (Auto) ESR PT INR Sodium Potassium Chloride Carbon Dioxide BUN Creatinine Estimated GFR BUN/Creatinine Ratio Glucose Hemoglobin A1c Calcium C-Reactive Protein Procalcitonin 0.09 TSH Rheumatoid Factor Assessment & Plan Assessment & Plan narrative: Patient is 84-year-old male with history of persistent atrial fibrillation, chronic anticoagulation, recent outside hospital admission for pneumonia admitted due to acute pleuritic chest pain, chills and progressive shortness of breath over the past several days. 1. Acute pericarditis without tamponade, present on admission -patient presented with symptoms of pleuritic chest pain and dyspnea status post recent outside hospitalization for pneumonia -ESR 64, CRP 20.8, TSH normal, rheumatoid factor 15.9 is slightly above normal range but patient followed by furniture mechanic for PMR and has not been diagnosed with RA, JUVE pending -transthoracic echo findings of small to moderate exudative pericardial effusion, dilated IVC and septal bounce in some views, but no RV or RA collapse -patient is hemodynamically stable with normal blood pressures and heart rate -chest CT also showed moderate likely exudate of pleural effusion, no mediastinal or hilar adenopathy, bilateral small pleural effusions and a retrocardiac infiltrate, no evidence of abscess -pericarditis likely inflammatory in nature associated with recent pneumonia, differential diagnosis of pericarditis includes idiopathic, thyroid or autoimmune, and neoplastic causes -patient started on colchicine 0.6 mg b.i.d. per recommendations after phone discussion with Dr. Sinha, patient on warfarin and unable to take NSAIDs -patient has not had recent previous echo for comparison -patient with improvement in dyspnea and not having pleuritic pain -repeat CBC, ESR, CRP in a.m. 2. Recent pneumonia treatment outside hospital -initial normal WBC, low procalcitonin and absence of fever not suggestive of persistent pneumonia. -chest CT with findings of retrocardiac infiltrate likely residual appearance of treated pneumonia and not representing active infection -WBC increased to 15.6 on this a.m. labs likely a result of IV steroid he received in ER and not representing infection -no antibiotics indicated at this time 3. Volume overload state, present on admission -fluid overloaded after recent hospital stay for pneumonia -dilated IVC on echo and bilateral pedal edema -LVEF is 60-65% with normal LV size on echo -improved peripheral edema with IV Lasix diuresis -ordered additional Lasix 40 mg IV x1 4. Persistent atrial fibrillation, present on admission -patient is in and out of atrial fibrillation with controlled rate -no significant troponin elevation and no ischemic findings are EKG -continue patient's sotalol 40 mg b.i.d. and metoprolol 37.5 mg b.i.d. 5. Chronic anticoagulation with supratherapeutic INR on admission -INR 5.3 on admission, patient is on warfarin 2.5 mg Tuesday and Tuesday, 5 mg Tuesday and Tuesday -current INR 3.8 trending down -ordered warfarin 5 mg for tonight 6. Essential hypertension, chronic, stable -BP is well controlled -continue home regimen of fosinopril 20 mg daily, amlodipine 5 mg each evening, patient also receiving metoprolol 37.5 mg twice daily. - 7. Hyperlipidemia, BPH -continue patient's lovastatin, finasteride and tamsulosin 8. Acute hyperglycemia, steroid related -this is steroid related with a.m. glucose 214 after he got large dose of IV Solu-Medrol, whereas admission glucose was 126 -repeat a.m. fasting glucose 160 still likely elevated from the IV steroid -hemoglobin A1c 5.9%, normal 9. Possible acute renal injury, present on admission -serum creatinine 1.2 verses 0.70 on 05/09/2018 which is not a recent baseline -current creatinine 0.9, continue to monitor Patient currently under observation status with improving course and hopefully can discharge home tomorrow.
[2019-06-07] MEDS: FUROSEMIDE 40 MG/4 ML VIAL IV (11:05)
--- NOTE | 2019-06-07 13:17 | CM.DPC ---
DCP: continued: case received, EMR reviewed and met now with pt. Introduced self and role. Clarified insurance: per COL notes from Admit Counselor team: Rogers Frandy Brand is the [facility] referred to in initial DCP assessment note. Pt confirmed that he lives on [address] with his [employer] (rooming in but not currently in the room.) He is functionally independent without assistive device, except for a cane if I am going long distances. He has been up mobilizing in the halls. He says he understands from Dr. Baldwin that he will likely be ready for a d/c home tomorrow. His will again stay overnight so that she can drive him home. Case was discussed in Team Rounds with Dr. Baldwin noting he expected a d/c to home setting when stable for same. He and UR RN Azalia confirmed admission status: remains OBS P: home when stable for same. Will follow prn should any d/c needs arise.
[2019-06-07] MEDS: ACETAMINOPHEN 325 MG TABLET 650 MG PO (14:34)
[2019-06-07] MEDS: LOVASTATIN 20 MG TABLET 40 MG PO (17:00)
[2019-06-07] MEDS: WARFARIN 5 MG TABLET PO (17:01)
[2019-06-07] MEDS: CODEINE/ACETAMINOPHEN 30/300 TABLET 1 TAB PO (20:10)
[2019-06-07] MEDS: SODIUM CHLORIDE 0.9% FLUSH 10 ML IV (20:17)
--- NOTE | 2019-06-07 22:44 | PC.NURSE ---
Patient improving Patient reports no pain with cough this afternoon. Patient states edema in lower extremities is improving. Patient is looking forward to going home.
[2019-06-08] VITALS: BP 118/60; PULSE 71; RESP 18; TEMP 36.8; O2SAT 95
[2019-06-08 04:12] VITALS: BP 121/67; PULSE 71; RESP 18; TEMP 36.3; O2SAT 95
[2019-06-08] MEDS: PANTOPRAZOLE 20 MG TABLET PO (05:23)
[2019-06-08 06:21] LABS: Add Manual Diff / Slide Review NO; Basophils Absolute Auto 100 /uL (0-100); Basophils Percent Auto 0.5 % (0-2); Eosinophils Absolute Auto 100 /uL (0-450); Eosinophils Percent Auto 0.7 % (2-4); Hematocrit 35.6 % (41-53); Lymphocytes Absolute Auto 1100 /uL (1100-4500); Mean Corpuscular HGB Conc 33.8 % (30-36); Mean Corpuscular Hemoglobin 32.4 PG (26-34); Monocytes Absolute Auto 1200 /uL (0-900); Monocytes Percent Auto 11.2 % (3-14); Neutrophils Absolute Auto 8500 /uL (1500-7000); Neutrophils Percent Auto 77.6 % (50-75); Platelet Count 442 X10^3/uL (150-400); Red Blood Cell Count 3.71 X10^6/uL (4.5-5.9); Red Cell Distribution Width 15.4 % (11.6-14.8)
[2019-06-08 06:26] LABS: BUN Creatinine Ratio 42.5 (6-22); Blood Urea Nitrogen 34 mg/dL (9-20); Calcium 8.8 mg/dL (8.4-10.2); Carbon Dioxide 32 mmol/L (22-32); Chloride 98 mmol/L (98-107); Estimated Glomerular Filt Rate > 60.0 mL/min (>60); Glucose 128 mg/dL (80-110); HEMOLYSIS < 15 (0-50); Potassium 3.6 mmol/L (3.4-5.1); Sodium 137 mmol/L (137-145)
[2019-06-08 06:37] LABS: C-Reactive Protein Quant 10.5 mg/dL (<1.0); Erythrocyte Sedimentation Rate 54 MM/HR (0-15)
[2019-06-08 08:10] VITALS: BP 134/77; PULSE 68; RESP 16; TEMP 36.4; O2SAT 95
[2019-06-08] MEDS: TAMSULOSIN 0.4 MG CAPSULE PO (08:32)
[2019-06-08] MEDS: SOTALOL 80 MG TABLET 40 MG PO (08:32)
[2019-06-08] MEDS: hydroCHLOROthiazide 25 MG TABLET PO (08:32)
[2019-06-08] MEDS: METOPROLOL IR 25 MG TABLET 37.5 MG PO (08:33)
[2019-06-08] MEDS: allopurinoL 300 MG TABLET PO (08:33)
[2019-06-08] MEDS: FINASTERIDE 5 MG TABLET PO (08:33)
[2019-06-08] MEDS: COLCHICINE 0.6 MG TABLET PO (08:33)
[2019-06-08] MEDS: SODIUM CHLORIDE 0.9% FLUSH 10 ML IV (08:37)
[2019-06-08] MEDS: FOSINOPRIL 10 MG TABLET 20 MG PO (08:37)
[2019-06-08] MEDS: GABAPENTIN 100 MG CAPSULE PO (08:37)
[2019-06-08 11:04] VITALS: BP 126/71; PULSE 71; RESP 16; TEMP 36.4; O2SAT 95
--- NOTE | 2019-06-08 11:27 | P.DS_ITS ---
History of Present Illness History of Present Illness Chief complaint: PNUMONIA Narrative: Mr. Teja Gage is an 84-year-old male with history significant for atrial fibrillation anticoagulated on warfarin, hypertension, hyperlipidemia, history of gout as ulcer and gout who was sent to the ER prior his primary care physician with shortness of breath. Patient was recently hospitalized at [facility] for treatment of pneumonia. He was discharged 1 week ago and reports doing well. He subsequently developed progressive shortness of breath over the last several days coincidentally occurring when he injected his methotrexate on Tuesday the patient is concerned of recurrent pneumonia. Patient has had associated complaints of headaches and sore throat and chronic cough. He has had chills but reports a 1 degree temperature. He has no current complaints of chest pain and has palpitations with a history of atrial fibrillation. He has shortness of breath and dry, nonproductive cough as above but denies wheezing. He has no complaints of abdominal pain, heartburn, nausea or vomiting. He denies urinary symptoms and had diarrhea that has just recently resolved he attributes to his antibiotic therapy. He has chronic bilateral lower extremity edema. Upon arrival to the ER the patient is afebrile with temperature 97.3?, heart rate of 91, blood pressure 127/76, respiratory rate rate of 23 saturating 97% on room air. Chest x-rays obtained which finds small left pulmonary effusion adjacent atelectasis, heart size is normal. ABG of stained which finds a pH of 7.42, pCO2 34, PO2 of 62, bicarb 22 with base excess of -2 on room air. Twelve lead EKG reveals sinus rhythm with frequent PACs with ventricular rate of [address] changes no indications of acute ischemia or infarct. He has elevated white blood cell count to 13.5, hemoglobin of 12.2, hematocrit of 37.0 platelets of 389. His supratherapeutic on coagulation with a PT of 63.4, INR of 5.3 and PTT of 47. On chemistries hyponatremic 131 the potassium 0.9, BUN of 39 and creatinine of 1.2. His nonfasting glucose is 126. He has lactic acid 1.7, procalcitonin is 0.13 and his magnesium is 2.5. He has a total CPK of 32 with a troponin of 0.053. BNP is 1190. Requested consult from Cardiology which is obtained through the ED. No new recommendations been received. The patient is admitted to the medicine service for acute hypoxic respiratory failure and acute kidney injury. Discharge Providers Provider Date of admission: 06/05/19 20:48 Discharge Date: 06/08/19 Primary care physician: Bradly Landa Consults: 06/05/19 23:21 Consult to Dietitian, Adult Routine Comment: Reason For Exam: New CHF Consult to Discharge Planning Routine Comment: Discharge provider: Ash Baldwin MD Summary Hospital Course Discharge Diagnosis: 1. Acute pericarditis without tamponade 2. Iatrogenic volume overload from previous hospital admission 3. Recent bacterial pneumonia, treated 4. Persistent atrial fibrillation 5. Chronic anticoagulation 6. Acute renal injury, resolved 7. Acute hyperglycemia secondary to steroid 8. Possible mild asthma complicating pneumonia Hospital Course: Patient is 84-year-old male with history of persistent atrial fibrillation, chronic anticoagulation, recent outside hospital admission for pneumonia admitted due to acute pleuritic chest pain, chills and progressive shortness of breath over the past several days. His transthoracic echo and chest CT showed small to moderate exudate pericardial effusion and dilated IVC. He has not had any hemodynamic instability or other definite indication of cardiac tamponade. Patient was treated for acute pericarditis and volume overload. He has improvement in dyspnea although he does get slightly winded with ambulating outside of room. On exam this morning lungs are clear except slight wheeze. Heart sounds are regular without murmur or rub. Extremities with trace lower extremity edema. He is being discharged on colchicine 0.6 mg b.i.d. until he sees his polystyrene bead molder Dr. Ray and also Lasix 20 mg daily for an additional 5 days. Have also given him a prescription for albuterol inhaler to use as needed as he may have developed slight asthma since his pneumonia. Workup and treatment as follows: 1. Acute pericarditis without tamponade, present on admission -symptoms improving since patient started on colchicine, repeat CRP 10 is 50% improved from initial level, ESR improved from 64 to 54 -patient presented with symptoms of pleuritic chest pain and dyspnea status post recent outside hospitalization for pneumonia -ESR 64, CRP 20.8, TSH normal, rheumatoid factor 15.9 is slightly above normal range but patient followed by international sales representative for PMR and has not been diagnosed with RA, JUVE pending at time of discharge -transthoracic echo findings of small to moderate exudative pericardial effusion, dilated IVC and septal bounce in some views, but no RV or RA collapse -patient has been hemodynamically stable with normal blood pressures and heart rate -chest CT also showed moderate likely exudate of pleural effusion, no mediastinal or hilar adenopathy, bilateral small pleural effusions and a retrocardiac infiltrate, no evidence of abscess -pericarditis likely inflammatory in nature associated with recent pneumonia, differential diagnosis of pericarditis includes idiopathic, thyroid or autoimmune, and neoplastic causes -patient started on colchicine 0.6 mg b.i.d. per recommendations after phone discussion with Dr. Sinha, patient on warfarin and unable to take NSAIDs -patient has not had recent previous echo for comparison -patient with improvement in dyspnea and not having pleuritic pain 2. Recent pneumonia treatment outside hospital -initial normal WBC, low procalcitonin 0.09 and absence of fever not suggestive of persistent pneumonia. -chest CT with findings of retrocardiac infiltrate likely residual appearance of treated pneumonia and not representing active infection -WBC transient increased to 15.6 after dose IV steroid he received in ER and down to 11.0 without antibiotics -I do not think he has any residual or recurrent pneumonia 3. Volume overload state, present on admission -patient was fluid overloaded after recent outside hospital stay for pneumonia -dilated IVC on echo and bilateral pedal edema -LVEF is 60-65% with normal LV size on echo -patient receive several doses of IV Lasix and has improvement in peripheral ed praveen 4. Persistent atrial fibrillation, present on admission -patient is in and out of atrial fibrillation with controlled rate -no significant troponin elevation and no ischemic findings are EKG -continue patient's sotalol 40 mg b.i.d. and metoprolol 37.5 mg b.i.d. 5. Chronic anticoagulation with supratherapeutic INR on admission -INR 5.3 on admission, patient is on warfarin 2.5 mg Tuesday and Tuesday, 5 mg Tuesday and Tuesday -current INR 3.8 trending down and patient restarted on his usual warfarin dose on 06/07/2019 6. Essential hypertension, chronic, stable -BP is well controlled -continue home regimen of fosinopril 20 mg daily, HCTZ 25 mg daily, amlodipine 5 mg each evening, patient also receiving metoprolol 37.5 mg twice daily. - 7. Hyperlipidemia, BPH -continue patient's lovastatin, finasteride and tamsulosin 8. Acute hyperglycemia, steroid related -this is steroid related with a.m. glucose 214 after he got large dose of IV Solu-Medrol, whereas admission glucose was 126 -repeat a.m. fasting glucose 160 still likely elevated from the IV steroid -hemoglobin A1c 5.9%, normal 9. Possible acute renal injury, present on admission -serum creatinine 1.2 verses 0.70 on 05/09/2018 which is not a recent baseline -last serum creatinine 0.8 Status at Discharge Cognitive/behavioral status at discharge: oriented Functional status at discharge: independent ambulation Overall status at discharge: patient is progressing back to baseline Time Spent with Patient Time spent: Greater than 30 minutes Exam Vital Signs (past 8 hours): - 06/08/19 04:12 06/08/19 08:10 Temperature 97.4 F L 97.6 F Pulse Rate 71 68 Respiratory Rate 18 16 Blood Pressure 121/67 134/77 Pulse Oximetry 95 95 Oxygen Delivery Method Room Air Oxygen Flow Rate 0 Objective Labs Result Diagrams: 06/08/19 05:46 06/08/19 05:46 Labs: Laboratory Results - last 24 hr 06/08/19 06/08/19 05:46 05:46 WBC 11.0 RBC 3.71 L Hgb 12.0 L Hct 35.6 L MCV 96.0 MCH 32.4 MCHC 33.8 RDW 15.4 H Plt Count 442 H Neut % (Auto) 77.6 H Lymph % (Auto) 10.0 L Irwin % (Auto) 11.2 Eos % (Auto) 0.7 L Baso % (Auto) 0.5 Neut # (Auto) 8500 H Lymph # (Auto) 1100 Irwin # (Auto) 1200 H Eos # (Auto) 100 Baso # (Auto) 100 ESR 54 H Sodium 137 Potassium 3.6 Chloride 98 Carbon Dioxide 32 BUN 34 H Creatinine 0.80 Estimated GFR > 60.0 BUN/Creatinine Ratio 42.5 H Glucose 128 H Calcium 8.8 C-Reactive Protein 10.5 H Discharge Plan Discharge Plan Patient Disposition: Home Discharge comment: You were treated for acute pericarditis and fluid overload. Take colchicine twice daily and taper per cardiology. Take furosemide daily for 3 days then stop. You can use albuterol inhaler as needed. Have your INR checked in 5 to 7 days. See you primary care provider and polystyrene bead molder within 1 week. Discharge orders & Medications Prescriptions: New furosemide 20 mg tablet 20 mg PO DAILY Qty: 3 RF: 0 albuterol sulfate 90 mcg/actuation HFA aerosol inhaler 2 puff INHALATION Q4H PRN (Reason: shortness of breath or wheezing) Qty: 8.5 RF: 0 colchicine 0.6 mg tablet 0.6 mg PO BID Qty: 60 RF: 0 Continued hydrochlorothiazide 25 MG tablet 25 mg PO QAM Qty: 90 RF: 3 potassium chloride 20 mEq tablet,ER particles/crystals 20 meq PO DAILY RF: 0 warfarin 5 mg tablet 2.5 mg PO MOWEFR RF: 0 methotrexate sodium (PF) 25 mg/mL solution 1 ml IM QWEEK RF: 0 sotalol 80 MG tablet 40 mg PO BID RF: 0 lovastatin 40 MG tablet 40 mg PO QPM RF: 0 fosinopril 20 MG tablet 20 mg PO BID RF: 0 amlodipine [Norvasc] 5 MG tablet 5 mg PO QPM RF: 0 tamsulosin [Flomax] 0.4 MG capsule 0.8 mg PO QPM RF: 0 finasteride 5 MG tablet 5 mg PO DAILY RF: 0 multivitamin [One Daily Multivitamin] Tablet 1 tab PO DAILY RF: 0 aspirin 81 mg Tablet,Delayed Release (Dr/Ec) 81 mg PO DAILY RF: 0 acetaminophen 500 mg Tablet 1,000 mg PO TID RF: 0 ascorbic acid (vitamin C) 500 mg Tablet 500 mg PO BID RF: 0 warfarin [Jantoven] 5 mg Tablet 5 mg PO SUTUTHSA RF: 0 warfarin [Jantoven] 5 mg tablet RF: 0 nitroglycerin 0.4 mg tablet, sublingual 0.4 mg sublingual PRN PRN (Reason: Chest Pain) RF: 0 omeprazole 20 mg capsule,delayed release(DR/EC) 20 mg PO DAILY RF: 0 gabapentin 100 mg capsule 100 mg PO TID RF: 0 metoprolol tartrate 25 mg tablet 25 mg PO TID RF: 0 allopurinol 300 MG tablet 300 mg PO DAILY RF: 0 Follow up/Referrals: Bradly Landa [Primary Care Provider] - (PLEASE CALL TO SCHEDULE YOUR APPOINTMENT) Haydee Ray MD [Physician] - 1 Week (PLEASE CALL TO SCHEDULE YOUR APPOINTMENT) Discharge Health Status Multidrug resistant organism: No MDRO Diet/Activity/Treatments Diet: Regular Visit Report/Discharge Packet Instructions: DI for Pneumonia -- Adult, DI for Pericarditis, How to Prevent Falls Discharge Data Primary Care Provider: Bradly Landa Attending Provider: Diaz Rehman Date/Time: 06/05/19 20:48
--- NOTE | 2019-06-08 14:20 | PC.NURSE ---
Discharge Orders for discharge were received. Patient and family agreeable for discharge. IV removed intact. Patient/family were given information regarding diagnosis, signs and symptoms to be aware of, follow up instructions and information/teaching on medications to take. Understanding of this information was signified, verified by the teach back method. Patient then was wheeled to the main entrance where he entered a private vehicle. At the time of DC patient alert and oriented, denies CP/SOB/NV or other difficulty.
[2019-06-14 16:21] LABS: ANA Screen, IFA NEGATIVE (NEGATIVE)
== END 2019-06-08 13:21 | disposition home or self-care (01) ==
LOC: ED 20:42 → AC 20:49
PROVIDERS: Emergency Medicine; Internal Medicine; Admitting Provider Nurse Practitioner Adult Health; Emergency Provider Emergency Medicine; Family Provider Family Medicine; PCP Family Medicine; Visit Provider Nurse Practitioner Adult Health
DX: I30.9 Acute pericarditis, unspecified (principal); R06.02 Shortness of breath; I48.11 Longstanding persistent atrial fibrillation; E87.70 Fluid overload, unspecified; Z79.01 Long term (current) use of anticoagulants; R73.9 Hyperglycemia, unspecified; I10 Essential (primary) hypertension; E78.5 Hyperlipidemia, unspecified
CPT/HCPCS: 36415; 36600; 71046; 71260; 80048; 80053; 81003; 82550; 82805; 83036; 83605; 83735; 83880; 84145; 84443; 84484; 85025; 85610; 85651; 85730; 86038; 86140; 86430; 87633; 93005; 93306; 94640; 94760; 94762; 96361; 96374; 96375; 96376; 99285; G0378; J1940; J2930

== ENCOUNTER 2019-06-11 20:47 | Observation (INO) | payer MEDICARE, SELFPAY ==
[2019-06-05 22:01] VITALS: BMI 30.4
[2019-06-11] VITALS (9 sets, daily range): BP systolic 111–148; BP diastolic 62–80; PULSE 76–84; RESP 16–33; TEMP 37.2; O2SAT 94–97; BMI 30.4
--- NOTE | 2019-06-11 20:55 | ED.CHESTPAIN ---
HPI - Chest Pain General Chief Complaint: Chest Pain Stated Complaint: Chest Pain Time Seen by Provider: 06/11/19 20:55 Source: patient Mode of arrival: other Limitations: no limitations History of Present Illness HPI narrative: The patient arrives by air EMS from [facility] due to left anterior pain. He had sharp stabbing pinpoint pain in the left chest about 2 hour prior to arrival, upon arrival he is pain free. He has no dyspnea. The pain is not radiate. He is having no fever, chills or cough. He was recently admitted here for pericarditis. He is anticoagulated due to atrial fib. He is taking colchicine due to the pericarditis. He denies orthopnea, but he does have decreased sensation of chest discomfort when sitting upright. He was recently treated for pneumonia, prior to the admission here for pericarditis. From the evaluation done, including echo, he has noted that he was not suffering from tamponade. He has no history of coronary artery disease. With the last admission he had elevated rheumatoid factor, but also had elevated CRP and ESR. He knows he is feeling better take the colchicine, until prior to arrival. He has no peripheral edema with the current symptoms. After arrival here he did develop another episode of chest pain. On exam the chest pain is extremely focal in the left anterior chest, below the nipple. The pain was not reproducible on exam. The pain is not reproducible with deep breathing. He may have some relief from going from a recumbent position to a sitting position. Related Data Home Medications Medication Instructions Recorded Confirmed acetaminophen 1,000 mg PO TID 05/04/18 06/12/19 amlodipine [Norvasc] 5 mg PO QPM 05/04/18 06/12/19 ascorbic acid (vitamin C) 500 mg PO BID 05/04/18 06/12/19 finasteride 5 mg PO DAILY 05/04/18 06/12/19 fosinopril 20 mg PO BID 05/04/18 06/12/19 lovastatin 40 mg PO QPM 05/04/18 06/12/19 methotrexate sodium (PF) 1 ml IM QWEEK 05/04/18 06/12/19 multivitamin [One Daily 1 tab PO DAILY 05/04/18 06/12/19 Multivitamin] potassium chloride 20 meq PO DAILY 05/04/18 06/12/19 sotalol 40 mg PO BID 05/04/18 06/12/19 tamsulosin [Flomax] 0.8 mg PO QPM 05/04/18 06/12/19 warfarin 2.5 mg PO MOWEFR 05/04/18 06/12/19 warfarin [Jantoven] 5 mg PO SUTUTHSA 05/04/18 06/12/19 allopurinol 300 mg PO DAILY 06/05/19 06/12/19 gabapentin 100 mg PO TID 06/05/19 06/12/19 metoprolol tartrate 25 mg PO TID 06/05/19 06/12/19 nitroglycerin 0.4 mg SUBLINGUAL PRN PRN 06/05/19 06/12/19 omeprazole 20 mg PO DAILY 06/05/19 06/12/19 Previous Rx's Medication Instructions Recorded hydrochlorothiazide 25 mg PO QAM #90 tab 08/26/16 albuterol sulfate 2 puff INHALATION Q4H PRN #8.5 gram 06/08/19 colchicine 0.6 mg PO BID #60 tab 06/08/19 furosemide 20 mg PO DAILY #3 tab 06/08/19 Allergies Allergy/AdvReac Type Severity Reaction Status Date / Time latex [LATEX] Allergy Mild Rash Verified 06/11/19 20:51 Review of Systems Review of Systems ROS Unobtainable: All systems reviewed & are unremarkable except as noted in HPI and below Constitutional Constitutional: Denies chills, Denies fever(s), Denies lethargy and Denies weakness Eyes Eyes: Denies change in vision, Denies eye discharge, Denies irritation and Denies loss of vision ENT Ears, Nose, Mouth, and Throat: Denies change in voice and Denies sore throat Cardiovascular Cardiovascular: Reports chest pain, Denies irregular heart rhythm, Denies lightheadedness, Denies palpitations, Denies dyspnea and Denies orthopnea Respiratory Respiratory: Denies cough, Denies hemoptysis, Denies dyspnea and Denies wheezing Comments: No orthopnea Gastrointestinal Gastrointestinal: Denies abdominal pain, Denies nausea and Denies vomiting Musculoskeletal Musculoskeletal: Denies back pain, Denies numbness and Denies tingling Integumentary/Breasts Skin/Breast: Denies pruritus, Denies erythema, Denies rash and Denies wounds Neurologic Neurologic: Denies loss of vision, Denies numbness, Denies tingling and Denies weakness Endocrine Endocrine: Denies palpitations Hematologic/Lymphatic Comments: He is anticoagulated Allergic/Immunologic Allergic/Immunologic: Denies wheezing Patient History Medical History (Updated 06/12/19 @ 06:11 by iMchelet Bell MD) Atrial fibrillation (Acute) Cholelithiasis (Acute) Chronic anticoagulation (Acute) Gout (Acute) History of gastric ulcer (Acute) History of tobacco use (Acute) Hyperlipidemia (Acute) Hypertension (Acute) Obesity (Acute) Pericarditis (Acute) Pneumonia (Acute) Polymyalgia rheumatica (Acute) Surgical History History of laparotomy (Acute) Family History Mother Hypertension Heart disease Diabetes mellitus Social History marital status: household members: spouse and other occupational status: previously employed Smoking Status: Former smoker alcohol intake: former substance use type: does not use Smoking Status: Former smoker alcohol intake frequency: holidays/special occasions only Substance Use Type: does not use Exam Initial Vital Signs Initial Vital Signs: Vital Signs Temperature 98.9 F 06/11/19 20:42 Pulse Rate 83 06/11/19 20:42 Respiratory Rate 16 06/11/19 20:42 Blood Pressure 111/75 06/11/19 20:42 Pulse Oximetry 97 06/11/19 20:42 Const General: cooperative, healthy appearing, comfortable and well developed Nutritional Appearance: well nourished [facility] Head: normocephalic and atraumatic Face and sinus: sinuses nontender, face symmetric, no sinus tenderness and No dry mucous membranes Mouth: oral mucosae normal and moist mucous membranes Teeth and gingiva: dentition normal Throat: tonsils normal and uvula midline Eyes General: appearance normal, both eyes and all related structures Eyelids: eyelids normal Conjunctivae: conjunctivae normal Sclera: sclerae normal Pupils: PERRL EOM: EOM intact bilaterally Neck Neck: supple and No JVD Chest Other: Pain in the left anterior chest, very focal, below the left nipple. The pain is not reproducible with palpation. Resp Effort & Inspection: normal respiratory effort and able to speak in complete sentences Auscultation: clear to auscultation bilaterally, no rales, no rhonchi and no wheezes Cardio Rate: regular rate Rhythm: regular rhythm Heart Sounds: S1 normal, S2 normal, no click, no gallops, no murmurs and no rubs Pulses: normal peripheral pulses GI Inspection: non-distended Palpation: soft, no hepatosplenomegaly, No guarding, No pulsatile mass and No tender Auscultation: normal bowel sounds Back/Spine/Pelvis Back: No CVA tenderness Skin General: no rashes or lesions noted, No jaundice and No petechiae Neuro General: alert, oriented x3, gait normal and no focal motor deficits Speech: speech normal Extrem General: full ROM, no pedal edema and no calf tenderness Psych Appearance: well kempt Mental Status: mental status grossly normal Attitude: cooperative Thought Content: normal Judgment: judgment good Course Course Course Narrative: His initial EKG was reassuring, no acute ST changes. Troponin is negative. The ESR and CRP remain elevated, but improved since his admission. He is having no fever. It is likely that the heart apex in the lower pericardium are in the vicinity of the site where he is experiencing pain. I suspect his pain is consistent with the pericardial effusion. A 2nd EKG shows no change, a 2nd troponin is normal. Vitals remained stable, patient seems to be doing well. The case was discussed with the hospitalist, LUIS Oconnor. The patient be admitted to telemetry. I suggested a repeat echo in the morning to evaluate the patient's clinical progress. Orders Ordered: ED Orders 06/11/19 21:00 BNP [NT-proBNP (BNP-Adult 18+)] Stat C-Reactive Protein Quant Stat Complete Blood Count AUTO DIFF Stat Comprehensive Metabolic Panel Stat Erythrocyte Sedimentation Rate Stat Lipase Stat Partial Thromboplastin Time Stat Prothrombin Time INR Stat Troponin & CK Cardiac Panel Stat 06/12/19 00:23 Trop I [Troponin I] Stat Acetaminophen (Tylenol) 650 mg PO Q6HR PRN PRN Reason: Fever/Mild Pain (1-3) Acetaminophen (Tylenol) 975 mg PO TID [facility] Albuterol (Ventolin Hfa) 2 puff INH RTQ6HR [facility] Amlodipine Besylate (Norvasc) 5 mg PO QPM [facility] Aspirin (Aspirin Ec) 81 mg PO DAILY [facility] Finasteride (Proscar) 5 mg PO DAILY [facility] Fosinopril Sodium (Monopril) 20 mg PO BID [facility] Furosemide (Lasix) 40 mg IV NOW ONE Stop: 06/12/19 09:12 Gabapentin (Neurontin) 100 mg PO TID [facility] Sodium Chloride (Normal Saline 0.9%) 1,000 mls @ 84 mls/hr IV CONT [facility] Stop: 06/12/19 16:25 Last Admin: 06/12/19 04:35 Dose: 84 mls/hr Documented by: PAUL Lovastatin (Mevacor) 40 mg PO QPM [facility] Metoprolol Tartrate (Lopressor) 25 mg PO TID [facility] Nitroglycerin (Nitrostat) 0.4 mg SL PRN PRN PRN Reason: Chest Pain Ondansetron HCl (Zofran Odt) 4 mg PO Q8HR PRN PRN Reason: Nausea And Vomiting Sotalol HCl (Betapace) 40 mg PO BID [facility] Tamsulosin HCl (Flomax) 0.8 mg PO QPM [facility] Discontinued Medications Acetaminophen (Tylenol) 975 mg PO NOW ONE Stop: 06/11/19 22:40 Last Admin: 06/11/19 23:24 Dose: 975 mg Documented by: JOSE G Colchicine (Colcrys) 0.6 mg PO NOW ONE Stop: 06/11/19 22:40 Last Admin: 06/11/19 23:59 Dose: 0.6 mg Documented by: JOSE G Furosemide (Lasix) 40 mg IV NOW ONE Stop: 06/11/19 22:40 Last Admin: 06/11/19 23:24 Dose: 40 mg Documented by: JOSE G Gabapentin (Neurontin) 100 mg PO NOW ONE Stop: 06/11/19 22:49 Last Admin: 06/11/19 23:59 Dose: 100 mg Documented by: JOSE G Ketorolac Tromethamine (Toradol) 15 mg IV NOW ONE Stop: 06/11/19 23:47 Last Admin: 06/12/19 00:17 Dose: 15 mg Documented by: JOSE G Metoprolol Succinate (Toprol Xl) 25 mg PO NOW ONE Stop: 06/11/19 22:40 Last Admin: 06/11/19 23:59 Dose: 25 mg Documented by: JOSE G Potassium Chloride (Klor-Con M20) 20 meq PO NOW ONE Stop: 06/11/19 22:49 Last Admin: 06/11/19 23:24 Dose: 20 meq Documented by: JOSE G Vital Signs Vital signs: Vital Signs - 8 hr 06/11/19 22:30 06/11/19 22:31 06/11/19 23:00 Pulse Rate 76 77 80 Respiratory Rate 16 16 28 H Blood Pressure Blood Pressure [Left Arm] 124/67 121/62 126/66 Pulse Oximetry 94 94 95 06/11/19 23:30 06/11/19 23:44 06/11/19 23:59 Pulse Rate 84 83 80 Respiratory Rate 18 33 H Blood Pressure 148/80 H Blood Pressure [Left Arm] 148/80 H 148/80 H Pulse Oximetry 95 97 06/12/19 00:00 06/12/19 00:30 06/12/19 01:30 Pulse Rate 82 78 78 Respiratory Rate 28 H 20 11 L Blood Pressure 124/65 Blood Pressure [Left Arm] 102/65 124/65 110/65 Pulse Oximetry 95 95 96 06/12/19 02:00 06/12/19 02:06 Pulse Rate 79 79 Respiratory Rate 15 17 Blood Pressure Blood Pressure [Left Arm] 125/56 L 125/56 L Pulse Oximetry 92 93 MDM - Chest Pain Lab Data Result diagrams: 06/12/19 04:30 06/12/19 04:30 Labs: Lab Results 06/11/19 06/11/19 06/11/19 Range/Units 21:00 21:00 21:00 WBC 12.5 H (4.5-11.0) X10^3/uL RBC 3.87 L (4.5-5.9) X10^6/uL Hgb 12.2 L (13.5-17.5) g/dL Hct 36.9 L (41-53) % MCV 95.2 (80-100) fL MCH 31.4 (26-34) PG MCHC 33.0 (30-36) % RDW 15.5 H (11.6-14.8) % Plt Count 494 H (150-400) X10^3/uL Neut % (Auto) 79.1 H (50-75) % Lymph % (Auto) 6.7 L (25-40) % Avery % (Auto) 10.9 (3-14) % Eos % (Auto) 2.7 (2-4) % Baso % (Auto) 0.6 (0-2) % Neut # (Auto) 9900 H (3248-5185) /uL Lymph # (Auto) 800 L (6914-9298) /uL Avery # (Auto) 1400 H (0-900) /uL Eos # (Auto) 300 (0-450) /uL Baso # (Auto) 100 (0-100) /uL ESR (0-15) MM/HR PT 48.6 H (10.1-12.7) SECONDS INR 4.3 H (0.9-1.3) APTT 39 H D (26.4-36.2) SECONDS Sodium 133 L (137-145) mmol/L Potassium 3.7 (3.4-5.1) mmol/L Chloride 94 L (98-107) mmol/L Carbon Dioxide 34 H (22-32) mmol/L BUN 17 (9-20) mg/dL Creatinine 0.70 (0.66-1.25) mg/dL Estimated GFR > 60.0 (>60) mL/min BUN/Creatinine Ratio 24.3 H (6-22) Glucose 152 H (80-110) mg/dL Calcium 8.6 (8.4-10.2) mg/dL Total Bilirubin 0.5 (0.2-1.3) mg/dL AST 30 (17-59) IU/L ALT 45 (<50) IU/L Alkaline Phosphatase 65 (38-126) U/L Total Creatine Kinase 22 L (55-170) U/L CK-MB (CK-2) TNP CK-MB (CK-2) Rel Index TNP Troponin I < 0.012 (0.01-0.034) ng/mL C-Reactive Protein (<1.0) mg/dL NT-Pro-B Natriuret Pep (<450) pg/mL Total Protein 6.4 (6.3-8.2) g/dL Albumin 3.4 L (3.5-5.0) g/dL Globulin 3.0 (1.7-4.1) g/dL Albumin/Globulin Ratio 1.1 (1.0-2.8) Lipase 97 (23-300) U/L Procalcitonin (<0.5) ng/mL 06/11/19 06/11/19 06/11/19 Range/Units 21:00 21:00 21:00 WBC (4.5-11.0) X10^3/uL RBC (4.5-5.9) X10^6/uL Hgb (13.5-17.5) g/dL Hct (41-53) % MCV (80-100) fL MCH (26-34) PG MCHC (30-36) % RDW (11.6-14.8) % Plt Count (150-400) X10^3/uL Neut % (Auto) (50-75) % Lymph % (Auto) (25-40) % Avery % (Auto) (3-14) % Eos % (Auto) (2-4) % Baso % (Auto) (0-2) % Neut # (Auto) (6667-3598) /uL Lymph # (Auto) (0213-8591) /uL Avery # (Auto) (0-900) /uL Eos # (Auto) (0-450) /uL Baso # (Auto) (0-100) /uL ESR 51 H (0-15) MM/HR PT (10.1-12.7) SECONDS INR (0.9-1.3) APTT (26.4-36.2) SECONDS Sodium (137-145) mmol/L Potassium (3.4-5.1) mmol/L Chloride (98-107) mmol/L Carbon Dioxide (22-32) mmol/L BUN (9-20) mg/dL Creatinine (0.66-1.25) mg/dL Estimated GFR (>60) mL/min BUN/Creatinine Ratio (6-22) Glucose (80-110) mg/dL Calcium (8.4-10.2) mg/dL Total Bilirubin (0.2-1.3) mg/dL AST (17-59) IU/L ALT (<50) IU/L Alkaline Phosphatase (38-126) U/L Total Creatine Kinase (55-170) U/L CK-MB (CK-2) CK-MB (CK-2) Rel Index Troponin I (0.01-0.034) ng/mL C-Reactive Protein 7.7 H (<1.0) mg/dL NT-Pro-B Natriuret Pep 484 H (<450) pg/mL Total Protein (6.3-8.2) g/dL Albumin (3.5-5.0) g/dL Globulin (1.7-4.1) g/dL Albumin/Globulin Ratio (1.0-2.8) Lipase (23-300) U/L Procalcitonin (<0.5) ng/mL 06/12/19 06/12/19 Range/Units 00:23 00:27 WBC (4.5-11.0) X10^3/uL RBC (4.5-5.9) X10^6/uL Hgb (13.5-17.5) g/dL Hct (41-53) % MCV (80-100) fL MCH (26-34) PG MCHC (30-36) % RDW (11.6-14.8) % Plt Count (150-400) X10^3/uL Neut % (Auto) (50-75) % Lymph % (Auto) (25-40) % Avery % (Auto) (3-14) % Eos % (Auto) (2-4) % Baso % (Auto) (0-2) % Neut # (Auto) (1662-9823) /uL Lymph # (Auto) (9598-2882) /uL Avery # (Auto) (0-900) /uL Eos # (Auto) (0-450) /uL Baso # (Auto) (0-100) /uL ESR (0-15) MM/HR PT (10.1-12.7) SECONDS INR (0.9-1.3) APTT (26.4-36.2) SECONDS Sodium (137-145) mmol/L Potassium (3.4-5.1) mmol/L Chloride (98-107) mmol/L Carbon Dioxide (22-32) mmol/L BUN (9-20) mg/dL Creatinine (0.66-1.25) mg/dL Estimated GFR (>60) mL/min BUN/Creatinine Ratio (6-22) Glucose (80-110) mg/dL Calcium (8.4-10.2) mg/dL Total Bilirubin (0.2-1.3) mg/dL AST (17-59) IU/L ALT (<50) IU/L Alkaline Phosphatase (38-126) U/L Total Creatine Kinase (55-170) U/L CK-MB (CK-2) CK-MB (CK-2) Rel Index Troponin I < 0.012 (0.01-0.034) ng/mL C-Reactive Protein (<1.0) mg/dL NT-Pro-B Natriuret Pep (<450) pg/mL Total Protein (6.3-8.2) g/dL Albumin (3.5-5.0) g/dL Globulin (1.7-4.1) g/dL Albumin/Globulin Ratio (1.0-2.8) Lipase (23-300) U/L Procalcitonin < 0.05 (<0.5) ng/mL Imaging Data Chest x-ray: Radiologist's Impression: Teja Gage 84 M [address] [address] XRay Report Signed Patient: Teja GageMR#: [id number] : 8Acct:[id number] Age/Sex: 84 / MDate of Service: 06/11/19 Loc: ED Accession Number: [id number] Procedure: XR chest 1V Ordering Provider: Michelet Bell MD PROCEDURE: XR CHEST 1V INDICATIONS: chest pain TECHNIQUE: One view of the chest was acquired. COMPARISON: [facility], CT, CT CHEST W CON, 06/06/2019, 16:42. [facility], CT, CT ABDOMEN PELVIS W CON, 05/04/2018, 8:25. [facility], CR, XR CHEST 2V, 06/05/2019, 16:13. FINDINGS: Surgical changes and devices: None. Lungs and pleura: Low lung volumes are noted. This causes a crowded appearance to the lung markings and limits evaluation. Interstitial prominence is seen. Focal, poorly defined opacity seen in the left lung base, as before. Mediastinum: Mediastinal contours appear normal. Heart size is moderately enlarged. Bones and chest wall: No suspicious bony lesions. Age-appropriate bony degenerative changes are seen. Overlying soft tissues appear unremarkable. IMPRESSION: Moderate cardiomegaly and interstitial prominence. Please correlate with patient presentation, physical examination findings, and laboratory values for congestive heart failure. There is poorly defined opacity at the left lung base, which is attributed to a pleural effusion. Dictated by: Aaron Garvin M.D. on 06/11/2019 at 21:15 Approved by: Aaron Garvin M.D. on 06/11/2019 at 21:17 ECG Data Attestation: I personally reviewed and interpreted this ECG as follows: (EKG 1.: Normal sinus rhythm rate 82 beats per minute. PVC. No significant ST wave changes. No ectopy. No acute ST T wave changes. EKG 2.: Normal sinus rhythm rate 84 beats per minute. Nonspecific ST T wave changes. No ectopy. No significant changes from EKG 1. ) Critical Care Time Critical Care Time Attestation: Time included initial assessment the patient, multiple reassessments. Time could evaluation prior medical records, labs, EKG and x-ray data. EKG a and does repeated. The case was discussed with the patient, I then consult the hospitalist, LUIS for admission. Discharge Plan Departure Patient Disposition: Admitted as Observation Clinical Impression: Pericarditis Qualifiers: Pericarditis type: associated with rheumatic fever Chronicity: acute Qualified Code(s): I01.0 - Acute rheumatic pericarditis Chest pain Qualifiers: Chest pain type: precordial pain Qualified Code(s): R07.2 - Precordial pain Atrial fibrillation Qualifiers: Atrial fibrillation type: paroxysmal Qualified Code(s): I48.0 - Paroxysmal atrial fibrillation Discharge Date/Time: 06/12/19 02:30 Admit Date/Time: 06/12/19 02:27 Admit Provider: Geneva Oconnor
[2019-06-11 21:10] LABS: Add Manual Diff / Slide Review NO; Basophils Absolute Auto 100 /uL (0-100); Basophils Percent Auto 0.6 % (0-2); Eosinophils Absolute Auto 300 /uL (0-450); Eosinophils Percent Auto 2.7 % (2-4); Hematocrit 36.9 % (41-53); Hemoglobin 12.2 g/dL (13.5-17.5); Lymphocytes Absolute Auto 800 /uL (1100-4500); Lymphocytes Percent Auto 6.7 % (25-40); Mean Corpuscular Hemoglobin 31.4 PG (26-34); Mean Corpuscular Volume 95.2 fL (80-100); Monocytes Absolute Auto 1400 /uL (0-900); Monocytes Percent Auto 10.9 % (3-14); Neutrophils Absolute Auto 9900 /uL (1500-7000); Neutrophils Percent Auto 79.1 % (50-75); Platelet Count 494 X10^3/uL (150-400); Red Blood Cell Count 3.87 X10^6/uL (4.5-5.9); Red Cell Distribution Width 15.5 % (11.6-14.8); White Blood Cell Count 12.5 X10^3/uL (4.5-11.0)
[2019-06-11 21:15] LABS: INR 4.3 (0.9-1.3); Prothrombin Time 48.6 SECONDS (10.1-12.7)
[2019-06-11 21:18] LABS: PTT Partial Thromboplastin Tim 39 SECONDS (26.4-36.2)
[2019-06-11 21:25] LABS: Alanine Aminotransferase 45 IU/L (<50); Albumin 3.4 g/dL (3.5-5.0); Albumin Globulin Ratio 1.1 (1.0-2.8); Alkaline Phosphatase 65 U/L (38-126); Aspartate Aminotransferase 30 IU/L (17-59); BUN Creatinine Ratio 24.3 (6-22); Bilirubin Total 0.5 mg/dL (0.2-1.3); Blood Urea Nitrogen 17 mg/dL (9-20); Calcium 8.6 mg/dL (8.4-10.2); Carbon Dioxide 34 mmol/L (22-32); Chloride 94 mmol/L (98-107); Creatine Kinase 22 U/L (55-170); Estimated Glomerular Filt Rate > 60.0 mL/min (>60); Glucose 152 mg/dL (80-110); HEMOLYSIS < 15 (0-50); Lipase 97 U/L (23-300); Potassium 3.7 mmol/L (3.4-5.1); Sodium 133 mmol/L (137-145); Total Protein 6.4 g/dL (6.3-8.2)
[2019-06-11 21:26] LABS: C-Reactive Protein Quant 7.7 mg/dL (<1.0)
[2019-06-11 21:32] LABS: Erythrocyte Sedimentation Rate 51 MM/HR (0-15)
[2019-06-11 21:37] LABS: Troponin I < 0.012 ng/mL (0.01-0.034)
[2019-06-11 21:51] LABS: NT-proBNP (BNP-Adult 18+) 484 pg/mL (<450)
[2019-06-11] MEDS: ACETAMINOPHEN 325 MG TABLET 975 MG PO (23:24)
[2019-06-11] MEDS: FUROSEMIDE 40 MG/4 ML VIAL IV (23:24)
[2019-06-11] MEDS: POTASSIUM CHLORIDE 20 MEQ TAB PO (23:24)
--- NOTE | 2019-06-11 23:24 | PC.NURSE ---
patient states that his left sided chest pain has returned and is 4/10 on a pain scale of 0-10. provider notified and a repeat EKG is ordered via verbal order. RT at bedside to do EKG. no new orders at this time.
[2019-06-11] MEDS: COLCHICINE 0.6 MG TABLET PO (23:59)
[2019-06-11] MEDS: METOPROLOL ER 25 MG TABLET PO (23:59)
[2019-06-11] MEDS: GABAPENTIN 100 MG CAPSULE PO (23:59)
[2019-06-12] VITALS (14 sets, daily range): BP systolic 102–158; BP diastolic 56–72; PULSE 77–105; RESP 11–28; TEMP 36.4–37.2; O2SAT 91–97; BMI 30.4
[2019-06-12] MEDS: KETOROLAC 60 MG/2 ML VIAL 15 MG IV (00:17)
[2019-06-12 00:52] LABS: Troponin I < 0.012 ng/mL (0.01-0.034)
--- NOTE | 2019-06-12 01:01 | PC.NURSE ---
Gave Pt a half a tuna sandwich and a half a egg salad sandwich
--- NOTE | 2019-06-12 03:45 | DI.ECHO.S_ITS ---
[facility]---------+ [facility] +---------+ : : [address] : : : : [id number] : : : : Phone: [phone] Echocardiogram Report + + :Name: AMITA JIMENEZ Study Date: 06/12/2019 Height: 70 in : :[facility] Weight: 212 lb : : Gender: Male BSA: 2.1 m2 : :: 1935 Age: 84 yrs BP: 131/65 mmHg: :Reason For Study: Pericardial Effusion : : Performed By: LRF : :Referring: KYLE GARG : + + Interpretation Summary Limited echo. A moderate size pericardial effusion with echodense component is again visualized. There is no chamber collapse but IVC is dilated. This is overall similar to the prior echo. Procedure: A two-dimensional transthoracic echocardiogram with color flow and Doppler was performed in limited views only. Comparison is made with the echocardiogram of 06/06/2019. The study quality was technically adequate. The apical views were difficult to obtain and are suboptimal in quality. A contrast injection of Definity was performed to improve assessment of LV function. The patient was in normal sinus rhythm during the exam. Left Ventricle: The left ventricle is normal in size. Left ventricular wall thickness is mild-moderately increased. There is no thrombus. The ejection fraction is estimated to be 60-65%. Great Vessels: The IVC is dilated (diameter is greater than 2.1 cm) and it collapses less than 50% with a sniff. This suggests a high right atrial pressure of 15 mm Hg. Pericardium/ Pleura There is a moderate pericardial effusion noted. Pericardial effusion best viewed in the subcostal window. Pericardial fibrinous strands are noted. MMode/2D Measurements & Calculations LVIDd: 5.0 cm IVC diam: 2.4 cm LVIDs: 3.5 cm FS: 31.2 % IVSd: 1.2 cm LVPWd: 1.5 cm LV arias. diameter/BSA (cm/m^2): 2.4 LV sys. diameter/BSA (cm/m^2): 1.6 Electronically signed by: Hector Gamez M.D. on Reading Physician:06/12/2019 03:25 PM
--- NOTE | 2019-06-12 03:52 | P.HP_ITS ---
History of Present Illness History of Present Illness Date Patient Seen: 06/12/19 Time Patient Seen: 03:00 Chief complaint: Chest Pain Narrative: Teja Gage is a very pleasant 84-year-old male with chronic and persistent atrial fibrillation, essential hypertension, and a transient hyperglycemia secondary to being on steroids, who returned to the ED tonight with a complaint of chest pain. He was just recently discharged from here on June 08 after being treated for pneumonia in found to have acute pericarditis. That time he underwent transthoracic echocardiogram and a chest CT indicating a small to moderate exudative pericardial effusion with a dilated IVC. This was done due to complaints of shortness of breath. He was diuresed and determined not to have any residual recurrent pneumonia. He also had some fluid overload at that time. Patient's INR today was 4.3, his BNP was elevated at 493 however this is half of what it was during his past admission 5 days ago. His troponin is negative. He stated that he has had chest pain since that admission however he felt like he was getting better and was able to follow a shower today since he was admitted on June 05. He states that now the pain seems to be only in 1 place, it is not reproducible with proper pressure, he does not have any shortness of breath today, and it is relieved by him eating. He states that psych a sensation of his left lung and ?something in front of it? being swollen and painful. He states that it actually resolves with eating. Patient History Medical History Atrial fibrillation (Acute) Cholelithiasis (Acute) Chronic anticoagulation (Acute) Gout (Acute) History of gastric ulcer (Acute) History of tobacco use (Acute) Hyperlipidemia (Acute) Hypertension (Acute) Obesity (Acute) Polymyalgia rheumatica (Acute) Surgical History History of laparotomy (Acute) Family & Social History Family History Mother Hypertension Heart disease Diabetes mellitus Social History: household members spouse,other Safety & Behavioral: Feels Safe in Current Yes Environment Been Physically Hurt or No Threatened By a Person Tobacco & Substance use: Smoking Status Former smoker alcohol intake former alcohol intake frequency holiday/special occasion Substance Use Type does not use Meds Home Medications and Allergies Home Medications Medication Instructions Recorded Confirmed Type hydrochlorothiazide 25 mg PO QAM #90 tab 08/26/16 06/12/19 Rx acetaminophen 1,000 mg PO TID 05/04/18 06/12/19 History amlodipine [Norvasc] 5 mg PO QPM 05/04/18 06/12/19 History ascorbic acid (vitamin C) 500 mg PO BID 05/04/18 06/12/19 History finasteride 5 mg PO DAILY 05/04/18 06/12/19 History fosinopril 20 mg PO BID 05/04/18 06/12/19 History lovastatin 40 mg PO QPM 05/04/18 06/12/19 History methotrexate sodium (PF) 1 ml IM QWEEK 05/04/18 06/12/19 History multivitamin [One Daily 1 tab PO DAILY 05/04/18 06/12/19 History Multivitamin] potassium chloride 20 meq PO DAILY 05/04/18 06/12/19 History sotalol 40 mg PO BID 05/04/18 06/12/19 History tamsulosin [Flomax] 0.8 mg PO QPM 05/04/18 06/12/19 History warfarin 2.5 mg PO MOWEFR 05/04/18 06/12/19 History warfarin [Jantoven] 5 mg PO SUTUTHSA 05/04/18 06/12/19 History allopurinol 300 mg PO DAILY 06/05/19 06/12/19 History gabapentin 100 mg PO TID 06/05/19 06/12/19 History metoprolol tartrate 25 mg PO TID 06/05/19 06/12/19 History nitroglycerin 0.4 mg SUBLINGUAL PRN PRN 06/05/19 06/12/19 History omeprazole 20 mg PO DAILY 06/05/19 06/12/19 History albuterol sulfate 2 puff INHALATION Q4H PRN #8.5 gram 06/08/19 06/12/19 Rx colchicine 0.6 mg PO BID #60 tab 06/08/19 06/12/19 Rx furosemide 20 mg PO DAILY #3 tab 06/08/19 06/12/19 Rx Allergies Allergy/AdvReac Type Severity Reaction Status Date / Time latex [LATEX] Allergy Mild Rash Verified 06/11/19 20:51 Review of Systems Review of Systems ROS: Yes All systems reviewed with the patient and are negative except as otherwise documented Exam Vital Signs (past 8 hours): - 06/11/19 20:42 06/11/19 21:13 06/11/19 22:31 Temperature 98.9 F Pulse Rate 83 78 77 Respiratory Rate 16 23 16 Blood Pressure 111/75 Blood Pressure [Left Arm] 113/65 121/62 Pulse Oximetry 97 95 94 06/11/19 23:44 06/11/19 23:59 06/12/19 02:06 Temperature Pulse Rate 83 80 79 Respiratory Rate 33 H 17 Blood Pressure 148/80 H Blood Pressure [Left Arm] 148/80 H 125/56 L Pulse Oximetry 97 93 Oxygen Delivery Method Room Air Narrative Exam Narrative: Gen: Alert, oriented, well-developed 84 y.o. male, appears comfortable today HEENT: normocephalic, atraumatic, conjunctiva clear, sclera non-icteric, oral mucosa pink and moist Neck: supple, full ROM Resp: Lungs CTA, non-labored breathing CV: Irregularly irregular with a extra heart sounds auscultated at the base Abd: soft, non-tender, normoactive BTs Skin: no lesions or rashes, dry and intact Neuro: Alert and oriented X 4 w/no focal deficits Extremities: Has +2 to 3 pitting edema bilaterally lower extremities, moves all 4 extremities, is ambulatory, negative Carlton?s sign Psyche: normal mood and affect. Objective Labs Result Diagrams: 06/11/19 21:00 06/11/19 21:00 Labs: Laboratory Results - last 24 hr 06/11/19 06/11/19 06/11/19 21:00 21:00 21:00 WBC 12.5 H RBC 3.87 L Hgb 12.2 L Hct 36.9 L MCV 95.2 MCH 31.4 MCHC 33.0 RDW 15.5 H Plt Count 494 H Neut % (Auto) 79.1 H Lymph % (Auto) 6.7 L [place] % (Auto) 10.9 Eos % (Auto) 2.7 Baso % (Auto) 0.6 Neut # (Auto) 9900 H Lymph # (Auto) 800 L [place] # (Auto) 1400 H Eos # (Auto) 300 Baso # (Auto) 100 ESR PT 48.6 H INR 4.3 H APTT 39 H D Sodium 133 L Potassium 3.7 Chloride 94 L Carbon Dioxide 34 H BUN 17 Creatinine 0.70 Estimated GFR > 60.0 BUN/Creatinine Ratio 24.3 H Glucose 152 H Calcium 8.6 Total Bilirubin 0.5 AST 30 ALT 45 Alkaline Phosphatase 65 Total Creatine Kinase 22 L CK-MB (CK-2) TNP CK-MB (CK-2) Rel Index TNP Troponin I < 0.012 C-Reactive Protein NT-Pro-B Natriuret Pep Total Protein 6.4 Albumin 3.4 L Globulin 3.0 Albumin/Globulin Ratio 1.1 Lipase 97 06/11/19 06/11/19 06/11/19 21:00 21:00 21:00 WBC RBC Hgb Hct MCV MCH MCHC RDW Plt Count Neut % (Auto) Lymph % (Auto) [place] % (Auto) Eos % (Auto) Baso % (Auto) Neut # (Auto) Lymph # (Auto) [place] # (Auto) Eos # (Auto) Baso # (Auto) ESR 51 H PT INR APTT Sodium Potassium Chloride Carbon Dioxide BUN Creatinine Estimated GFR BUN/Creatinine Ratio Glucose Calcium Total Bilirubin AST ALT Alkaline Phosphatase Total Creatine Kinase CK-MB (CK-2) CK-MB (CK-2) Rel Index Troponin I C-Reactive Protein 7.7 H NT-Pro-B Natriuret Pep 484 H Total Protein Albumin Globulin Albumin/Globulin Ratio Lipase 06/12/19 00:23 WBC RBC Hgb Hct MCV MCH MCHC RDW Plt Count Neut % (Auto) Lymph % (Auto) [place] % (Auto) Eos % (Auto) Baso % (Auto) Neut # (Auto) Lymph # (Auto) [place] # (Auto) Eos # (Auto) Baso # (Auto) ESR PT INR APTT Sodium Potassium Chloride Carbon Dioxide BUN Creatinine Estimated GFR BUN/Creatinine Ratio Glucose Calcium Total Bilirubin AST ALT Alkaline Phosphatase Total Creatine Kinase CK-MB (CK-2) CK-MB (CK-2) Rel Index Troponin I < 0.012 C-Reactive Protein NT-Pro-B Natriuret Pep Total Protein Albumin Globulin Albumin/Globulin Ratio Lipase Assessment & Plan Assessment & Plan narrative: Teja love be placed in observation and undergo another echocardiogram to confirm worsening or improvement of a pericardial effusion. 1. Pericardial effusion, acute, unknown if improving or worsening * Complete echocardiogram without contrast * Notify Dr. Lagos his program developer of this observation admission. He has a follow-up scheduled for Monday 06/12. 2. Persistent atrial fibrillation anticoagulated with warfarin, is supratherapeutic currently, present on admission * Warfarin will be held in the morning * Daily INR 3. Volume overload state, improving, present on admission * ProBNP was 483 verses 1190 on June 05 * Patient received Lasix 40 mg tonight in the ED, and is written for Lasix 40 mg in the morning 4. Hyponatremia, appears to be chronic, present on admission * Normal saline at 84 mL/hour, it will be important to monitor for fluid overload 5. Essential hypertension, chronic, stable * Blood pressure is 140/62 * Continue home dose of fosinopril 20 mg p.o. daily, amlodipine 5 mg in the evening and metoprolol 37.5 mg twice daily 6. Hyperlipidemia, chronic, stable * Continue home dose of lovastatin 40 mg p.o. in the evening 7. BPH, chronic, stable * Continue home dose of tamsulosin 0.8 mg p.o. in the evening and finasteride 5 mg p.o. daily 8. Recent history of acute kidney injury, resolved * Creatinine today is 0.70 9. Recent history of acute hyperglycemia likely secondary to steroid use * Glucose is 152 * Continue daily monitoring FEN: Normal saline, regular diet, chemistries in the am Patient is placed into observation as his stay is not likely to exceed 2 midnights. VTE Prophylaxis: Warfarin, currently held due to supratherapeutic INR Medications reconciled: yes Disposition: Likely discharge to home Code Status: full code
[2019-06-12 04:28] LABS: Procalcitonin < 0.05 ng/mL (<0.5)
[2019-06-12] MEDS: SODIUM CHLORIDE 0.9% 1,000 ML 84 ML IV (04:35)
[2019-06-12 04:46] LABS: Add Manual Diff / Slide Review NO; Basophils Absolute Auto 100 /uL (0-100); Basophils Percent Auto 0.5 % (0-2); Eosinophils Absolute Auto 300 /uL (0-450); Hematocrit 36.4 % (41-53); Hemoglobin 12.1 g/dL (13.5-17.5); INR 4.1 (0.9-1.3); Lymphocytes Absolute Auto 1000 /uL (1100-4500); Lymphocytes Percent Auto 7.2 % (25-40); Mean Corpuscular HGB Conc 33.1 % (30-36); Mean Corpuscular Hemoglobin 31.6 PG (26-34); Mean Corpuscular Volume 95.4 fL (80-100); Monocytes Absolute Auto 1200 /uL (0-900); Monocytes Percent Auto 8.5 % (3-14); Neutrophils Absolute Auto 11600 /uL (1500-7000); Neutrophils Percent Auto 81.8 % (50-75); Platelet Count 475 X10^3/uL (150-400); Prothrombin Time 46.5 SECONDS (10.1-12.7); Red Blood Cell Count 3.82 X10^6/uL (4.5-5.9); Red Cell Distribution Width 15.2 % (11.6-14.8); White Blood Cell Count 14.1 X10^3/uL (4.5-11.0)
[2019-06-12 04:50] LABS: Blood Urea Nitrogen 18 mg/dL (9-20); Calcium 8.6 mg/dL (8.4-10.2); Carbon Dioxide 34 mmol/L (22-32); Chloride 94 mmol/L (98-107); Estimated Glomerular Filt Rate > 60.0 mL/min (>60); Glucose 182 mg/dL (80-110); HEMOLYSIS < 15 (0-50); Potassium 3.6 mmol/L (3.4-5.1); Sodium 134 mmol/L (137-145)
--- NOTE | 2019-06-12 07:03 | PC.NURSE ---
Pt is AxOx3, Vital stable, tolerating room air. NS@84mL/hr for just 1L bag. +2 pitting edema to BLE Complained of 4 out of 10 chest pain. Refused Nitro stating it doesn't help him. When asked if he thinks morphine or something else would work he stated he didn't feel he needed any pain meds for it and that the pain was tolerable. Describes it as left sided chest pain that is sharp, and then started to come towards center of the chest a bit. Skin is good. Small abrasion to right FA and scattered bruising. Echo to be done today. Tele: Afib
--- NOTE | 2019-06-12 08:05 | CM.DANOTE ---
Addendum entered by Debra Arguello LPN 06/12/19 08:22: Met with pt and introduced self and role. His Fareed is, as per the last stay, rooming in. CAPTAIN/AIRLINE PILOT Dottie was working with pt. Pt and Fareed are aware that DCP team will follow as POC unfolds to assist with any dc needs that may arise. Pt admitted early this mornin:27. Admission status: in review: per UR BRUCE Suárez Original Note: Discharge Planning/Care Management DCP: assessment: case received, EMR reviewed. READMIT: noted/see template info below. Pt is an 84 year old male who admitted to care of hospitalist team. Payer: Med Adv MISC/per AC Col noted: this is [place] Medicare Preferred. P: check in with pt to complete assessment process. Discuss in Team Rounds and follow accordingly. CM Discharge Assessment Start: 06/12/19 08:03 Freq: Status: Active Protocol: Document 06/12/19 08:03 ITV (Rec: 06/12/19 08:05 ITV [id number]) Discharge Planning Assessment Advance Directives? Yes History Provided By Medical Record Has Patient been admitted in last 30 No days? Comment admitted [facility] 06/05-06/08/19 with a dc to home setting. Prior Living Arrangements House Household Members spouse,other Independent with ADL's Yes Is patient alert and oriented? Yes Comment functionally independent with occ use of cane Whiteboard Updated in Patient Room with Yes name and ext. # of Switch Maker Review Status In Process
--- NOTE | 2019-06-12 08:18 | PC.NURSE ---
Addendum entered by Dottie Garber R.N. 06/12/19 12:19: IVF stopped, IV Lasix added. Echo scheduled for later today. SBA as Pt up to BR. Original Note: Am Shift 0730-Pt reports SOB and mild 3/10 CP worsened with deep breaths. Placed 02 2L Spo2 93-96% after O2. Pt feels this has helped his Work of breathing. VSS, update to Dr Moeller.
[2019-06-12] MEDS: SOTALOL 80 MG TABLET 40 MG PO ×2 (10:00→22:28)
[2019-06-12] MEDS: FUROSEMIDE 20 MG/2 ML VIAL 40 MG IV (10:03)
[2019-06-12] MEDS: METOPROLOL IR 25 MG TABLET PO ×3 (10:09→22:28)
[2019-06-12] MEDS: ASPIRIN EC 81 MG TABLET PO (10:09)
[2019-06-12] MEDS: ACETAMINOPHEN 325 MG TABLET 975 MG PO ×3 (10:10→22:30)
[2019-06-12] MEDS: FINASTERIDE 5 MG TABLET PO (10:30)
[2019-06-12] MEDS: FOSINOPRIL 10 MG TABLET 20 MG PO ×2 (11:00→22:29)
--- NOTE | 2019-06-12 15:38 | PM.PN.1 ---
Exam Vital Signs (past 8 hours): - 06/12/19 12:45 06/12/19 15:37 Temperature 99.0 F 99.0 F Pulse Rate 77 80 Respiratory Rate 16 26 H Blood Pressure 121/62 129/68 Pulse Oximetry 94 Oxygen Delivery Method Room Air Oxygen Flow Rate 0 Objective Labs Result Diagrams: 06/12/19 04:30 06/12/19 04:30 Labs: Laboratory Results - last 24 hr 06/11/19 06/11/19 06/11/19 21:00 21:00 21:00 WBC 12.5 H RBC 3.87 L Hgb 12.2 L Hct 36.9 L MCV 95.2 MCH 31.4 MCHC 33.0 RDW 15.5 H Plt Count 494 H Neut % (Auto) 79.1 H Lymph % (Auto) 6.7 L [place] % (Auto) 10.9 Eos % (Auto) 2.7 Baso % (Auto) 0.6 Neut # (Auto) 9900 H Lymph # (Auto) 800 L [place] # (Auto) 1400 H Eos # (Auto) 300 Baso # (Auto) 100 ESR PT 48.6 H INR 4.3 H APTT 39 H D Sodium 133 L Potassium 3.7 Chloride 94 L Carbon Dioxide 34 H BUN 17 Creatinine 0.70 Estimated GFR > 60.0 BUN/Creatinine Ratio 24.3 H Glucose 152 H Calcium 8.6 Total Bilirubin 0.5 AST 30 ALT 45 Alkaline Phosphatase 65 Total Creatine Kinase 22 L CK-MB (CK-2) TNP CK-MB (CK-2) Rel Index TNP Troponin I < 0.012 C-Reactive Protein NT-Pro-B Natriuret Pep Total Protein 6.4 Albumin 3.4 L Globulin 3.0 Albumin/Globulin Ratio 1.1 Lipase 97 Procalcitonin 06/11/19 06/11/19 06/11/19 21:00 21:00 21:00 WBC RBC Hgb Hct MCV MCH MCHC RDW Plt Count Neut % (Auto) Lymph % (Auto) [place] % (Auto) Eos % (Auto) Baso % (Auto) Neut # (Auto) Lymph # (Auto) [place] # (Auto) Eos # (Auto) Baso # (Auto) ESR 51 H PT INR APTT Sodium Potassium Chloride Carbon Dioxide BUN Creatinine Estimated GFR BUN/Creatinine Ratio Glucose Calcium Total Bilirubin AST ALT Alkaline Phosphatase Total Creatine Kinase CK-MB (CK-2) CK-MB (CK-2) Rel Index Troponin I C-Reactive Protein 7.7 H NT-Pro-B Natriuret Pep 484 H Total Protein Albumin Globulin Albumin/Globulin Ratio Lipase Procalcitonin 06/12/19 06/12/19 06/12/19 00:23 00:27 04:30 WBC 14.1 H RBC 3.82 L Hgb 12.1 L Hct 36.4 L MCV 95.4 MCH 31.6 MCHC 33.1 RDW 15.2 H Plt Count 475 H Neut % (Auto) 81.8 H Lymph % (Auto) 7.2 L [place] % (Auto) 8.5 Eos % (Auto) 2.0 Baso % (Auto) 0.5 Neut # (Auto) 14915 H Lymph # (Auto) 1000 L [place] # (Auto) 1200 H Eos # (Auto) 300 Baso # (Auto) 100 ESR PT INR APTT Sodium Potassium Chloride Carbon Dioxide BUN Creatinine Estimated GFR BUN/Creatinine Ratio Glucose Calcium Total Bilirubin AST ALT Alkaline Phosphatase Total Creatine Kinase CK-MB (CK-2) CK-MB (CK-2) Rel Index Troponin I < 0.012 C-Reactive Protein NT-Pro-B Natriuret Pep Total Protein Albumin Globulin Albumin/Globulin Ratio Lipase Procalcitonin < 0.05 06/12/19 06/12/19 04:30 04:30 WBC RBC Hgb Hct MCV MCH MCHC RDW Plt Count Neut % (Auto) Lymph % (Auto) [place] % (Auto) Eos % (Auto) Baso % (Auto) Neut # (Auto) Lymph # (Auto) [place] # (Auto) Eos # (Auto) Baso # (Auto) ESR PT 46.5 H INR 4.1 H APTT Sodium 134 L Potassium 3.6 Chloride 94 L Carbon Dioxide 34 H BUN 18 Creatinine 0.90 Estimated GFR > 60.0 BUN/Creatinine Ratio 20.0 Glucose 182 H Calcium 8.6 Total Bilirubin AST ALT Alkaline Phosphatase Total Creatine Kinase CK-MB (CK-2) CK-MB (CK-2) Rel Index Troponin I C-Reactive Protein NT-Pro-B Natriuret Pep Total Protein Albumin Globulin Albumin/Globulin Ratio Lipase Procalcitonin Assessment & Plan Assessment & Plan narrative: I have seen and evaluated this patient today. I agree with the previous assessment and plan as documented. Patient is an 84-year-old male who has a past medical history of atrial fibrillation anticoagulated on warfarin, hypertension, hyperlipidemia, history of gout as ulcer and gout who was admitted for chest pain and shortness of breath. He was also recently admitted for pericarditis with a pericardial effusion. I discussed the case with Dr. Ray, his entry level sales representative, today. He recommended limited echocardiogram to see if there is any conversion in his effusion to hemorrhagic. Given concern over possible hemorrhage, he recommended discontinuing warfarin at this time. He believes pain is likely related to pericarditis and once off of warfarin with a normal INR can start ibuprofen. He also recommended vitamin K which was given orally today. Limited echocardiogram again showed similar size pericardial effusion, without evidence of tamponade but did show a dilated IVC. He does appear slightly volume overloaded with peripheral edema, bibasilar crackles and I have also continued diuresis today.
[2019-06-12] MEDS: PHYTONADIONE (VIT K1) 5 MG TABLET PO (18:09)
[2019-06-12] MEDS: GABAPENTIN 100 MG CAPSULE PO ×2 (18:09→22:28)
[2019-06-12] MEDS: AMLODIPINE 5 MG TABLET PO (18:10)
[2019-06-12] MEDS: LOVASTATIN 20 MG TABLET 40 MG PO (18:10)
[2019-06-12] MEDS: TAMSULOSIN 0.4 MG CAPSULE 0.8 MG PO (18:10)
[2019-06-12] MEDS: FUROSEMIDE 40 MG/4 ML VIAL IV (22:28)
--- NOTE | 2019-06-12 23:46 | PC.NURSE ---
Evening Shift Note: Pt with uneventful shift. Pt continues to complain of mid-sternal chest pain, up to 2/10, worse on inspiration. Pt reports some improvement of pain with scheduled tylenol. Also complaining of lower back pain, improved when sitting up in chair. Pt given 40 mg iv lasix this evening. Low grade temperature, 99. Pt states he is having chills intermittently. Ongoing RN aware, to be communicated to MD.
[2019-06-13] VITALS (13 sets, daily range): BP systolic 84–112; BP diastolic 50–60; PULSE 71–89; RESP 18–26; TEMP 36.6–37.7; O2SAT 91–98
[2019-06-13 04:55] LABS: INR 2.7 (0.9-1.3); Prothrombin Time 31.1 SECONDS (10.1-12.7)
--- NOTE | 2019-06-13 04:58 | PC.NURSE ---
Restaurant General Manager Note: 0000: Resting in bed. Vital signs stable. Pt states the pain he has when coughing is much less than it had been. IV in place in lt AC. Remains on telemetry. 0200: Pt sleeping. O2 sats dropping to 86%. Placed on O2 1L/NC.
[2019-06-13 04:59] LABS: BUN Creatinine Ratio 23.3 (6-22); Blood Urea Nitrogen 21 mg/dL (9-20); Calcium 8.2 mg/dL (8.4-10.2); Carbon Dioxide 36 mmol/L (22-32); Chloride 93 mmol/L (98-107); Estimated Glomerular Filt Rate > 60.0 mL/min (>60); Glucose 131 mg/dL (80-110); HEMOLYSIS 19 (0-50); Sodium 133 mmol/L (137-145)
[2019-06-13 05:02] LABS: Add Manual Diff / Slide Review NO; Basophils Absolute Auto 100 /uL (0-100); Basophils Percent Auto 0.7 % (0-2); Eosinophils Absolute Auto 300 /uL (0-450); Hematocrit 36.2 % (41-53); Lymphocytes Absolute Auto 900 /uL (1100-4500); Lymphocytes Percent Auto 5.8 % (25-40); Mean Corpuscular HGB Conc 33.2 % (30-36); Mean Corpuscular Hemoglobin 31.5 PG (26-34); Monocytes Absolute Auto 1500 /uL (0-900); Monocytes Percent Auto 10.6 % (3-14); Neutrophils Absolute Auto 11800 /uL (1500-7000); Neutrophils Percent Auto 80.9 % (50-75); Platelet Count 421 X10^3/uL (150-400); Red Blood Cell Count 3.81 X10^6/uL (4.5-5.9); Red Cell Distribution Width 15.4 % (11.6-14.8); White Blood Cell Count 14.6 X10^3/uL (4.5-11.0)
--- NOTE | 2019-06-13 06:25 | RT ---
0615 pt took own albuterol mdi from home as provided. rn aware.
[2019-06-13] MEDS: FUROSEMIDE 40 MG/4 ML VIAL IV (09:26)
[2019-06-13] MEDS: ACETAMINOPHEN 325 MG TABLET 975 MG PO ×2 (09:27→14:46)
[2019-06-13] MEDS: METOPROLOL IR 25 MG TABLET PO ×2 (09:27→14:47)
[2019-06-13] MEDS: ASPIRIN EC 81 MG TABLET PO (09:27)
[2019-06-13] MEDS: FINASTERIDE 5 MG TABLET PO (09:28)
[2019-06-13] MEDS: SOTALOL 80 MG TABLET 40 MG PO (09:28)
[2019-06-13] MEDS: FOSINOPRIL 10 MG TABLET 20 MG PO (09:29)
[2019-06-13] MEDS: GABAPENTIN 100 MG CAPSULE PO ×2 (09:29→14:46)
[2019-06-13] MEDS: PHYTONADIONE (VIT K1) 5 MG in DEXTROSE 5 % IN WATER 50 ML 101 ML IV (10:33)
--- NOTE | 2019-06-13 10:52 | PT.IIE ---
Surgical History (Last Reviewed 06/12/19 @ 06:03 by Michelet Bell MD) History of laparotomy (Acute) Medical History (Last Updated 06/12/19 @ 06:02 by Michelet Bell MD) Atrial fibrillation (Acute) Cholelithiasis (Acute) Chronic anticoagulation (Acute) Gout (Acute) History of gastric ulcer (Acute) History of tobacco use (Acute) Hyperlipidemia (Acute) Hypertension (Acute) Obesity (Acute) Pericarditis (Acute) Pneumonia (Acute) Polymyalgia rheumatica (Acute) Physical Therapy Inpatient Evaluation/Re-Eval M1 PT/OT-IP Prior Functional Status Start: 06/13/19 10:52 Freq: NEEDED Status: Active Protocol: Document 06/13/19 10:52 DLM (Rec: 06/13/19 11:19 DLM [email or web address]) Medical Review Prior Functional Status Medical History Reviewed Yes Diet/Fluid Consistency Regular Communication WFL, hard of hearing with aides Mobility and Gait Independent without device, recent decline in his home activity due to medical issues Activities of Daily Living and IADL's Independent, recently his has been helping him shower. Pt manage his own medications. Prior Functional Level (Other details) pt has recently been sleeping in a recliner due to difficulty breathing with his new medical issues, this is Teja's third hospitalization ([facility] x 2). He has had oxygen at home on 2-3 LPM since the first hospitalization. His latest hospital discharge was on 06/08 with pt returning to the hospital on 06/12/19. They live on [address]. Social History Household Members spouse,other Living Arrangements House Number of Floors (Floors) One Floor Number of Stairs To Enter/Railing? one Home Environment Standard Height Toilet,Walk in Shower,Built-In Shower Seat Home Equipment Front Wheel Walker,Grab Bars In Shower Employment Status Retired Additional Social History Comment has waffle cushion for his recliner at home M2 PT-IP Current Condition Start: 06/13/19 10:52 Freq: NEEDED Status: Active Protocol: Document 06/13/19 10:52 DLM (Rec: 06/13/19 11:19 DLM [email or web address]) Physical Therapy Current Condition Current Condition Evaluation Date 06/13/19 Treatment Diagnosis weakness, impaired gait Onset Date 06/12/19 Precautions Other Precautions oxygen at all times per Dr Ramirez M3 PT-IP Subjective Start: 06/13/19 10:52 Freq: NEEDED Status: Active Protocol: Document 06/13/19 10:52 DLM (Rec: 06/13/19 11:19 DLM [email or web address]) Subjective Physical Therapy Visit Type Type Initial Evaluation Visit Start Time 10:15 Visit Stop Time 10:52 Total Visit Minutes 37 Number of JACQUARD LOOM WEAVER Visits 0 Physical Therapy Visit Comments Patient Comments He reports his breathing feels worse today. He c/o buttock and low back pain with sitting in the chair or sleeping on his back. He reports he would lie on his side at home but has not done this at the hospital yet. Patient Goals Be able to go home, feel better Therapy Pain Assessment Pain When Pain Assessed At Rest Pain Present Pain Present Pain Reported Location Buttock Intensity 8 Scale Used Numeric (1 - 10) Description Aching Pain Management Techniques Re-positioning M4 PT-IP Mobility and Gait Start: 06/13/19 10:52 Freq: NEEDED Status: Active Protocol: Document 06/13/19 10:52 DLM (Rec: 06/13/19 11:19 DLM [email or web address]) PT-Bed Mobility Assessment Rolling Type of Rolling Bilateral Level of Assist Independent Sit to Supine Sit to Supine Independent Scooting Scooting to Edge of Bed Independent PT-Transfer Assessment Sit to and From Stand Sit to and from Stand Standby Assistance Equipment Transfer Assistive Device None Transfers Transfer Destination Bed Transfer Technique Stand Step Pivot Transfer Ability Level of Assist Standby Assistance Comments Mobility Comments No dizziness reported. Pt not on oxygen at the start of this visit and becomes short of breath with chair to bed transfer. Dr Ramirez approved placing pt on oxygen. After transfer his Oxygen sats were 81% on room air. He improved to 91% on 2 LPM. Pt in bed in left sidelying with head of bed elevated at the end of this visit. Pt reports his buttock and back pain have improved by being in sidelying . Gait Assessment Comments Gait Comments Pt up ambulating with nursing and FWW earlier this morning. Pt declined to ambulate further than chair to bed this visit due to shortness of breath. His is present this visit and voices concern about him going home today back to [facility]. PT-Balance Assessment Sitting Balance and Reactions Static Sitting Balance Ability Normal Dynamic Sitting Balance Ability Good Standing Balance and Reactions Static Standing Balance Ability Good Dynamic Standing Balance Ability Fair M5 PT-IP Objective Assessments Start: 06/13/19 10:52 Freq: NEEDED Status: Active Protocol: Document 06/13/19 10:52 DLM (Rec: 06/13/19 11:19 DLM [email or web address]) Orientation Orientation/Cognition Level of Alertness Alert Orientation Name,Age,Birthday,Month,Date, Year,Day of Week,Place, Situation Language Function Ability Hard of Hearing Safety Awareness Understands Safety Issues Memory Description No Deficits Noted Gross Range of Motion Upper Extremity ROM Assessment Within Functional Limits Lower Extremity ROM Assessment Within Functional Limits Strength Upper Extremity Strength Assessment Within Functional Limits Lower Extremity Strength Assessment Bilaterally Impaired Hip generalized weakness throughout due to inactivity with his current health Coordination Assessment Gross Coordination Gross Coordination WNL Sensation Assessment Comments Sensation Comments no changes reported by pt Muscle Tone Muscle Tone WNL Yes M7 PT-IP Assessment and Plan Start: 06/13/19 10:52 Freq: NEEDED Status: Active Protocol: Document 06/13/19 10:52 DLM (Rec: 06/13/19 11:19 DLM [email or web address]) PT Summary Assessment and Plan Potential Rehabilitation Potential Good Status of Condition at Evaluation Evolving Summary Impairments Pain,Strength,Transfers,Gait, Activity Tolerance Assessment Summary Pt describes not feeling well today. Assessment of his oxygen today indicates he needs to have his oxygen on at all times. His activity tolerance was very limited today when attempting even light activity without supplemental oxygen. He tolerates lying flat in bed poorly with shortness of breath and will need to sleep elevated at this time. Recommend he continue to use a FWW for now for gait to manage his generalized weakness and shortness of breath. His reports they have a fire control officer appt tomorrow and voices concerns about being able to get him home on the ferr to [facility] and then back tomorrow for his physician's appt. His discussed the option of [facility] but she does not have his home medications with her nor do they have a way to keep him on oxygen while at the hotel. It is unclear if pt will be able to stay elevated in the hotel room over-night to manage his breathing. His is very supportive and currently able to physically assist him as needed for discharge. Pt has a fWW to use at home. Goals Transfer Goal Independent Gait Goal Standby Assistance,Front Wheel Walker Gait Distance 150 feet Days to Meet Goals 2 Frequency of Treatment Frequency Of Treatment Once a Day Treatment Plan Physical Therapy Treatment Plan Transfer Training,Gait Training,Therapeutic Exercise, Discharge Planning Other Recommendations and Next Treatment He has a supportive who [employer] can assist him at home Recommendations To Nursing Amount of Assist Needed 1 Person Assist Discharge Recommendations PT Discharge Recommendations Home with Assistance Transportation Needs at Discharge Private Vehicle
--- NOTE | 2019-06-13 14:06 | PC.NURSE ---
Pt is AOx4, stable, afebrile. Pain treated with Tylenol. Pt is on 2L of O2, oxygen saturation at 96%. Pt will need O2 when discharged. Preparing for discharge at this date to [place] following 1500 lab draw.
--- NOTE | 2019-06-13 14:34 | PC.NURSE ---
PT PREPARING FOR DISCHARGE AND WAS WITNESSED TO DESAT TO 80% WHILE ON ROOM AIR AND TRANSFERRING BACK TO BED- PLACED BACK ON 2L AND SLOW TO RECOVER( 10-15 MINUTES)
--- NOTE | 2019-06-13 16:31 | PC.NURSE ---
Addendum entered by July Flood R.N. 06/13/19 20:46: Last set of vitals HR 82 94% on 2LNC Addendum entered by July Flood R.N. 06/13/19 20:34: Pt discharged to [facility] with - Spoke with Brett at 20:45 and he is on his way to meet them at the hotel Rm 115 for additional O2 tanks. Pt on 2LNC currently in wheelchair accompanied by Nurse to car. VSS upon dishcharrge. Detailed instructions written out for which medicaitons to take today and which to hold in the am if his SBP is low. and patient verbalized understanding. Addendum entered by July Flood R.N. 06/13/19 17:56: Dr sue at bedside. Pt remains asymptomatic. Most recent BP 101/58. Tolerated dinner well. Original Note: Pt with normal assessment at change of shift. HR 70s SR, BP 80s over 50s. Asymptomatic. Denies CP, SOB, pain. No dizziness. notified- will contact range rider to f/u on discharge plan. PO Ibuprofen to be given now. INR returned at 2.0
[2019-06-13] MEDS: IBUPROFEN 600 MG TABLET PO (16:53)
[2019-06-13] MEDS: TAMSULOSIN 0.4 MG CAPSULE 0.8 MG PO (16:53)
[2019-06-13] MEDS: LOVASTATIN 20 MG TABLET 40 MG PO (17:06)
--- NOTE | 2019-06-13 18:52 | P.DS_ITS ---
History of Present Illness History of Present Illness Date Patient Seen: 06/12/19 Chief complaint: Chest Pain Narrative: Written by Geneva SMITH: Teja Gage is a very pleasant 84-year-old male with chronic and persistent atrial fibrillation, essential hypertension, and a transient hyperglycemia secondary to being on steroids, who returned to the ED tonight with a complaint of chest pain. He was just recently discharged from here on June 08 after being treated for pneumonia in found to have acute pericarditis. That time he underwent transthoracic echocardiogram and a chest CT indicating a small to moderate exudative pericardial effusion with a dilated IVC. This was done due to complaints of shortness of breath. He was diuresed and determined not to have any residual recurrent pneumonia. He also had some fluid overload at that time. Patient's INR today was 4.3, his BNP was elevated at 493 however this is half of what it was during his past admission 5 days ago. His troponin is negative. He stated that he has had chest pain since that admission however he felt like he was getting better and was able to follow a shower today since he was admitted on June 05. He states that now the pain seems to be only in 1 place, it is not reproducible with proper pressure, he does not have any shortness of breath today, and it is relieved by him eating. He states that psych a sensation of his left lung and ?something in front of it? being swollen and painful. He states that it actually resolves with eating. Discharge Providers Provider Date of admission: 06/12/19 02:27 Discharge Date: 06/13/19 Primary care physician: Bradly Landa Consults: 06/12/19 03:45 Consult to Discharge Planning Routine Comment: 06/13/19 08:54 Consult to Physical Therapy Evaluate & Treat Comment: Physician Instructions: Evaluate and Treat Discharge provider: Annette Ramirez DO Summary Hospital Course Discharge Diagnosis: 1. Acute symptomatic pericarditis with pericardial effusion, present on admission. Improving. 2. Acute hypervolemia, present on admission. Resolved. 3. Acute hypoxemic respiratory failure, present on admission. Active. 4. Paroxysmal atrial fibrillation, chronic, present on admission. Stable. Anticoagulated with warfarin, is supratherapeutic currently, present on admission 5. Hyponatremia, chronic, present on admission. Stable. 6. Hypertension, chronic, present on admission. Stable. 7. Hyperlipidemia, chronic, present on admission. Stable. 8. BPH, chronic, present on admission. Stable. 9. PMR and rheumatoid arthritis, chronic, present on admission. Stable. 10. Gout, chronic, present on admission. Stable. 11. GERD, chronic, present on admission. Stable. Hospital Course: Teja Gage is an 84-year-old male with a past medical history significant for hypertension, hyperlipidemia, paroxysmal atrial fibrillation, who was recently hospitalized for pericarditis from 06/05/19-06/08/19who returned to the ED complaining of of chest pain. 1. Acute symptomatic pericarditis with pericardial effusion, present on admission. Improving. -Etiology unclear possibly secondary to infectious source with previous pneumonia versus inflammatory due to rheumatoid arthritis versus idiopathic. -Patient presented with worsening chest pain and shortness of breath felt to be symptomatic pericarditis with pericardial effusion. Concern for hemorrhagic conversion of pericardial effusion as patient is on anticoagulation causing worsening symptoms. -CT chest with contrast demonstrated retrocardiac left lower lobe pneumonia at the deep costophrenic sulcus, water density bilateral small pleural effusions, mildly elevated radiodensity at the pericardial effusion which raises concern for exudative rather than transudative effusion. No pericardial or pleural masses are found, no mediastinal or hilar adenopathyis seen. -Discontinued warfarin due to concern for hemorrhagic conversion of pericardial effusion. -Received vitamin K 5 mg PO x1 with INR improved from initial INR of 4.3 down to INR of 2.7. Received additional vitamin K 5 mg IV x1 with INR down to 2.0. Started ibuprofen 600 mg 3 times daily in addition to colchicine 0.6 mg twice daily. -Discussed case with patient's advertising clerk, Dr. Ray, who recommended discontinuation of warfarin due to concern for hemorrhagic conversion pericardial effusion, initiation of ibuprofen in addition to colchicine once INR is less than 2.0, and plan for close follow-up tomorrow 06/14/2019. -Continue supplemental oxygen as needed to keep oxygen saturation 88-92%. Respiratory therapy qualified patient for home oxygen as oxygen saturations labile and patient desaturates at times to mid 80s at rest and down to low 80s with activity. Continued and discharged patient on 2 L of continuous oxygen. 2. Acute hypervolemia, present on admission. Resolved. -Secondary to pericarditis and possible fluid overload from previous hospitalizations. -ProBNP was 483 which is lower than previous 1190 on 06/05/2019. -Limited echocardiogram demonstrated stable moderate size pericardial effusion with echodense component without chamber collapse but IVC is dilated which is overall similar to the prior echo. No RV or LV systolic dysfunction and no diastolic dysfunction. -Received Lasix 40 mg IV x1 in ED. Continued Lasix 40 mg IV twice daily and discontinued once patient felt to be euvolemic. Of note, patient's blood pressure low normal previous to discharge likely due to diuresis in conjunction with several antihypertensive/cardiac medications. -Continued to monitor strict I&Os and daily weights. Patient appears euvolemic. Net -500 mL. 3. Acute hypoxemic respiratory failure, present on admission. Active. -Likely secondary to symptomatic pericarditis with pericardial effusion and hypervolemia. -Continue supplemental oxygen as needed to keep oxygen saturation 88-92%. Respiratory therapy qualified patient for home oxygen as oxygen saturations labile and patient desaturates at times to mid 80s at rest and down to low 80s with activity. Continued and discharged patient on 2 L of continuous oxygen. 4. Paroxysmal atrial fibrillation, chronic, present on admission. Stable. Anticoagulated with warfarin, is supratherapeutic currently, present on admission -Patient was in sinus rhythm with controlled rate. -Continued metoprolol tartrate 25 mg 3 times daily and sotalol 40 mg twice daily. -Discontinued warfarin due to concern for hemorrhagic conversion of pericardial effusion. Received vitamin K 5 mg PO x1 with INR improved from initial INR of 4.3 down to INR of 2.7. Received additional vitamin K 5 mg IV x1 with INR down to 2.0. 5. Hyponatremia, chronic, present on admission. Stable. -Sodium level stable at 134. Patient asymptomatic. -Continued to monitor sodium periodically. 6. Hypertension, chronic, present on admission. Stable. -Continued home amlodipine 5 mg daily at bedtime, fosinopril 20 mg twice daily, metoprolol tartrate 25 mg 3 times daily. Held hydrochlorothiazide due to IV diuresis with furosemide as above. -Blood pressure well controlled throughout hospitalization but trending down to low normal previous to discharge likely due to IV diuresis. Discharged with instructions to hold evening dose of amlodipine and fosinopril. He was also instructed to recheck blood pressure tomorrow morning prior to taking antihypertensives and if SBP low 100's or less than do not take fosinopril, hydrochlorothiazide, or metoprolol and discuss further with Cardiology at appointment tomorrow to 10/2019 scheduled for . 7. Hyperlipidemia, chronic, present on admission. Stable. -Continued homelovastatin 40 mg daily at bedtime. 8. BPH, chronic, present on admission. Stable. -Continued home tamsulosin 0.8 mg daily at bedtime and finasteride 5 mg daily. 9. PMR and rheumatoid arthritis, chronic, present on admission. Stable. -Continued weekly methotrexate 1 mL IM. 10. Gout, chronic, present on admission. Stable. -Continued allopurinol 300 mg daily. 11. GERD, chronic, present on admission. Stable. -Continued omeprazole 20 mg daily. Exam Vital Signs (past 8 hours): - 06/13/19 11:00 06/13/19 11:53 06/13/19 13:25 Temperature 98.7 F Pulse Rate 73 71 Respiratory Rate 20 20 Blood Pressure 99/52 L 91/53 L Pulse Oximetry 97 95 98 06/13/19 16:00 06/13/19 16:05 Temperature 98.8 F Pulse Rate 80 Respiratory Rate 20 Blood Pressure 84/50 L Pulse Oximetry 93 95 Oxygen Delivery Method Nasal Cannula Oxygen Flow Rate 2 Narrative Exam Narrative: General: Elderly gentleman sitting in bed and in no acute distress, well- developed, well-nourished, slightly anxious but otherwise appropriately interact dionte. HEENT: Normocephalic, atraumatic. External ears without defect. Pupils equal, round, and reactive to light. Anicteric sclerae, moist conjunctivae, and no lid lag. Oropharynx free of erythema and cobble stoning with moist mucosa. Neck: Supple with full range of motion. No jugular venous distension. No lymphadenopathy or thyromegaly. Cardiovascular: Heart sounds distant but appears to be regular rhythm and rate without murmurs, rubs, or gallops appreciated. Pulmonary: Diminished throughout but clear to auscultation bilaterally without crackles, wheezes, or rhonchi. Mild conversational dyspnea and use of accessory muscles. Abdomen: Soft, bowel sounds present, non-tender, non-distended. No hepatosplenomegaly or masses appreciated. Extremities: No clubbing, cyanosis, or edema. Skin: Normal temperature, turgor, and texture; no rash, ulcers, or subcutaneous nodules appreciated. Neurological: Cranial nerves grossly intact. Psychiatric: Depressed and anxious mood and normal affect. Alert and oriented to person, place, and time. Objective Labs Result Diagrams: 06/13/19 04:40 06/13/19 04:40 Labs: Laboratory Results - last 24 hr 06/13/19 06/13/19 06/13/19 04:40 04:40 04:40 WBC 14.6 H RBC 3.81 L Hgb 12.0 L Hct 36.2 L MCV 95.0 MCH 31.5 MCHC 33.2 RDW 15.4 H Plt Count 421 H Neut % (Auto) 80.9 H Lymph % (Auto) 5.8 L Hardy % (Auto) 10.6 Eos % (Auto) 2.0 Baso % (Auto) 0.7 Neut # (Auto) 16288 H Lymph # (Auto) 900 L Hardy # (Auto) 1500 H Eos # (Auto) 300 Baso # (Auto) 100 PT 31.1 H D INR 2.7 H Sodium 133 L Potassium 4.0 Chloride 93 L Carbon Dioxide 36 H BUN 21 H Creatinine 0.90 Estimated GFR > 60.0 BUN/Creatinine Ratio 23.3 H Glucose 131 H Calcium 8.2 L Magnesium 2.0 06/13/19 14:48 WBC RBC Hgb Hct MCV MCH MCHC RDW Plt Count Neut % (Auto) Lymph % (Auto) Hardy % (Auto) Eos % (Auto) Baso % (Auto) Neut # (Auto) Lymph # (Auto) Hardy # (Auto) Eos # (Auto) Baso # (Auto) PT 23.0 H D INR 2.0 H Sodium Potassium Chloride Carbon Dioxide BUN Creatinine Estimated GFR BUN/Creatinine Ratio Glucose Calcium Magnesium Discharge Plan Discharge Plan Patient Disposition: Home Discharge comment: You are being discharged home. Your chest pressure and shortness of breath is related to your pericarditis and pericardial effusion. Your warfarin has been discontinued for now due to risk of bleeding into your pericardial effusion. You have been started on ibuprofen 600 mg 3 times daily (please be sure to take this with food) in addition to colchicine 0.6 mg twice daily to treat your pericarditis. You have been diuresed with IV furosemide and your blood pressure is now on low normal, therefore, please do not take amlodipine, fosinopril or metoprolol tonight. If your systolic blood pressure (top number) is in the low 90 to 100's tomorrow morning please do not take your blood pressure medications (fosinopril, hydrochlorothiazide, and metoprolol) and follow-up with your advertising clerk, Dr. Ray, at your scheduled appointment at 12:30. If your systolic blood pressure is 110 or higher you may take your medications like usual. Please continue oxygen 2 L at all times to maintain oxygen saturation 88-92%. Upon discharge you're going to be provided with oxygen to last the next 24 hours when you leave the hospital and delivered to your hotel. Discharge orders & Medications Prescriptions: New ibuprofen 600 mg Tablet 600 mg PO Q8H Qty: 90 RF: 0 Continued hydrochlorothiazide 25 MG tablet 25 mg PO QAM Qty: 90 RF: 3 potassium chloride 20 mEq tablet,ER particles/crystals 20 meq PO DAILY RF: 0 methotrexate sodium (PF) 25 mg/mL solution 1 ml IM QWEEK RF: 0 sotalol 80 MG tablet 40 mg PO BID RF: 0 lovastatin 40 MG tablet 40 mg PO QPM RF: 0 fosinopril 20 MG tablet 20 mg PO BID RF: 0 amlodipine [Norvasc] 5 MG tablet 5 mg PO QPM RF: 0 tamsulosin [Flomax] 0.4 MG capsule 0.8 mg PO QPM RF: 0 finasteride 5 MG tablet 5 mg PO DAILY RF: 0 multivitamin [One Daily Multivitamin] Tablet 1 tab PO DAILY RF: 0 ascorbic acid (vitamin C) 500 mg Tablet 500 mg PO BID RF: 0 nitroglycerin 0.4 mg tablet, sublingual 0.4 mg sublingual PRN PRN (Reason: Chest Pain) RF: 0 omeprazole 20 mg capsule,delayed release(DR/EC) 20 mg PO DAILY RF: 0 gabapentin 100 mg capsule 100 mg PO TID RF: 0 metoprolol tartrate 25 mg tablet 25 mg PO TID RF: 0 allopurinol 300 MG tablet 300 mg PO DAILY RF: 0 albuterol sulfate 90 mcg/actuation HFA aerosol inhaler 2 puff INHALATION Q4H PRN (Reason: shortness of breath or wheezing) Qty: 8.5 RF: 0 colchicine 0.6 mg tablet 0.6 mg PO BID Qty: 60 RF: 0 Discontinued warfarin 5 mg tablet 2.5 mg PO MOWEFR RF: 0 acetaminophen 500 mg Tablet 1,000 mg PO TID RF: 0 warfarin [Jantoven] 5 mg Tablet 5 mg PO SUTUTHSA RF: 0 furosemide 20 mg tablet 20 mg PO DAILY Qty: 3 RF: 0 Follow up/Referrals: Bradly Landa [Primary Care Provider] - 1 Week Haydee Ray MD [Physician] - As previously scheduled (Tomorrow 06/14 at 12:30) Diet/Activity/Treatments Diet: Low-fat, Low-sodium and Low-cholesterol Activity: Activity as tolerated with forward wheeled walker Oxygen: 2 L of oxygen continuous to maintain oxygen 88-92% Visit Report/Discharge Packet Instructions: DI for Pericarditis, DI for Oxygen Therapy -- Adult Discharge Data Primary Care Provider: Bradly Landa Attending Provider: Geneva Oconnor Admit Date/Time: 06/12/19 02:27 Discharges patient from system. Discharge Date/Time: 06/13/19 20:45
--- NOTE | 2019-06-15 10:46 | RT ---
Rec'd call from Yecenia at [facility]. They did not get signed order for patient's home O2. Refaxed completed O2 order to [facility], conf sheet also received. Copies of all this placed in DME book.
== END 2019-06-13 20:45 | disposition home or self-care (01) ==
LOC: ED 21:42 → AC 06-12 02:30 → ICU 06-12 06:09 → AC 06-14 08:00
PROVIDERS: Internal Medicine; Admitting Provider Nurse Practitioner Family; Emergency Provider Emergency Medicine; Family Provider Family Medicine; PCP Family Medicine; Referring Provider Nurse Practitioner Family; Visit Provider Nurse Practitioner Family
DX: R07.9 Chest pain, unspecified (principal); K21.9 Gastro-esophageal reflux disease without esophagitis; M1A.9XX0 Chronic gout, unspecified, without tophus (tophi); M06.9 Rheumatoid arthritis, unspecified; N40.0 Benign prostatic hyperplasia without lower urinary tract symptoms; E78.5 Hyperlipidemia, unspecified; I10 Essential (primary) hypertension; E87.1 Hypo-osmolality and hyponatremia; I48.0 Paroxysmal atrial fibrillation; J96.01 Acute respiratory failure with hypoxia; E87.70 Fluid overload, unspecified; I30.9 Acute pericarditis, unspecified
CPT/HCPCS: 36415; 71045; 80048; 80053; 82550; 83690; 83735; 83880; 84145; 84484; 85025; 85610; 85651; 85730; 86140; 93005; 93307; 94618; 96361; 96374; 96375; 96376; 97162; 99285; 99291; G0378; J1885; J1940; J3430; Q9957

== ENCOUNTER → 2019-07-25 14:12 | Outpatient (CLI) | payer MEDICARE, SELFPAY ==
[2019-06-12 03:33] VITALS: BMI 30.4
--- NOTE | 2019-07-25 14:17 | DI.CT.S_ITS ---
PROCEDURE: CT CHEST WO CON INDICATIONS: Lobar pneumonia, unspecified organism TECHNIQUE: Noncontrast 5 mm thick sections acquired from the pulmonary apices to the posterior costophrenic angles. 1 mm lung window, 5 mm thick coronal and sagittal and 7 mm axial MIP reformats were then acquired. For radiation dose reduction, the following was used: automated exposure control, adjustment of mA and/or kV according to patient size. COMPARISON: [facility], CT, CT CHEST W CON, 06/06/2019, 16:42. [facility], CR, XR CHEST 1V, 06/11/2019, 21:06. FINDINGS: Image quality: Excellent. Lungs and pleura: The previously seen left lower lobe consolidation has largely resolved, with a mild degree of residual consolidation seen inferiorly and anteriorly. No definite pleural effusions are seen. There is prominence of pleural fat seen on the left posteriorly, as on series 2 image 42. No pneumothorax is seen. Mild centrilobular emphysematous changes are seen, which are most prominent superiorly. Mediastinum: Heart size is normal. There is a trace pericardial effusion. No mediastinal adenopathy by size criteria. Thoracic aorta and central pulmonary arteries are normal in size. Atherosclerotic calcification is noted. Esophagus is normal in caliber. No hiatal hernia. Bones and chest wall: No suspicious bony lesions. No vertebral body compression fractures. No axillary or supraclavicular adenopathy by size criteria. Thyroid gland is not well-seen. Abdomen: Visualized upper abdominal solid organs and bowel loops appear normal in the absence of contrast. IMPRESSION: Clearly improved left lower lung consolidation, with a small amount of residual consolidation seen inferiorly and anteriorly. Resolved pleural effusions. Trace pericardial effusion, also clearly improved compared to the prior study. Dictated by: Aaron Garvin M.D. on 07/25/2019 at 15:13 Approved by: Aaron Garvin M.D. on 07/25/2019 at 15:16
== END ==
PROVIDERS: Family Provider Family Medicine; PCP Family Medicine; Referring Provider Family Medicine; Visit Provider Family Medicine
DX: J18.1 Lobar pneumonia, unspecified organism (principal)
CPT/HCPCS: 71250

== ENCOUNTER → 2019-08-30 14:22 | Outpatient (CLI) | payer MEDICARE, SELFPAY ==
[2019-06-12 03:33] VITALS: BMI 30.4
--- NOTE | 2019-08-30 | DI.ECHO.S_ITS ---
[place] [facility]---------+ [facility] +---------+ : : [address] : : : : [id number] : : : : Phone: [phone] Echocardiogram Report + + :Name: AMITA JIMENEZ Study Date: 08/30/2019 Height: 70 in : :[facility] Weight: 202 lb : : Gender: Male BSA: 2.1 m2 : :: 1935 Age: 84 yrs BP: 138/74 mmHg: :Reason For Study: Pleural Effusion : :Ordering Physician: Evita Powell : :Flor Performed By: Jillian Flores : :Referring: EVITA RAY : + + Interpretation Summary 1) Normal left ventricular size, thickness, wall motion, and systolic function (EF 60-65%). 2) Normal right ventricular size and function. 3) No significant valvular abnormalities. 4) Compared to the echo done 06/12/2019, pericardial effusion and pleural effusion have resolved on this study. Procedure: A two-dimensional transthoracic echocardiogram with color flow and Doppler was performed. The study quality was technically adequate. Comparison is made with the echocardiogram of 06/12/2019. The patient was in normal sinus rhythm during the exam. Left Ventricle: The left ventricle is normal in size and wall thickness. Proximal septal thickening is noted. The ejection fraction is estimated to be 60-65%. Left ventricular systolic function is normal without focal wall motion abnormalities. Right Ventricle: The right ventricle is normal in size and function. Atria: Both atria are normal in size. There is no Doppler evidence for an interatrial shunt. Mitral Valve: There is mild mitral annular calcification. The mitral valve leaflets appear normal. There is no evidence of stenosis, fluttering, or prolapse. There is mild mitral regurgitation. Aortic Valve: The aortic valve is trileaflet. The aortic valve opens well. There is no aortic valve stenosis. There is trace aortic regurgitation. Tricuspid Valve: The tricuspid valve is normal in structure and function. There is trace tricuspid regurgitation. The right ventricular systolic pressure is estimated to be at least 31 mmHg based on an estimated right atrial pressure of 3 mm Hg. Pulmonic Valve: The pulmonic valve is normal in structure and function. There is mild pulmonic regurgitation. Great Vessels: The aortic root is normal size. The ascending aorta is mildly enlarged. The aortic arch is normal in size. The IVC is of normal diameter and collapses greater than 50% with a sniff. This suggests a low right atrial pressure of 3 mm Hg. Pericardium/ Pleura There is no pericardial effusion. There is no pleural effusion. MMode/2D Measurements & Calculations LVIDd: 5.0 cm LVOT diam: 2.4 cm LVIDs: 3.3 cm Ao root diam: 3.3 cm FS: 35.4 % asc Aorta Diam: 3.5 cm EPSS: 0.80 cm Ao Arch Diam (Prox Trans): 3.0 cm IVSd: 0.84 cm LVPWd: 1.1 cm LV arias. diameter/BSA (cm/m^2): 2.4 LV sys. diameter/BSA (cm/m^2): 1.6 LA A2 area: 18.6 cm2 RA long axis: 5.8 cm LA A4 area: 20.1 cm2 RA area: 19.9 cm2 LA length (vol): 5.3 cm RA vol: 57.6 ml LA vol: 59.9 ml RA : 27.5 ml/m2 LA vol index: 28.6 ml/m2 RVD1 (basal): 2.8 cm TAPSE: 2.6 cm Doppler Measurements & Calculations Ao V2 max: 102.4 cm/sec LVOT Max Elvis: 80.6 cm/sec Ao V2 mean: 66.4 cm/sec LV V1 max P.6 mmHg Ao max P.2 mmHg LV V1 VTI: 18.4 cm Ao mean P.1 mmHg CHET(I,D): 3.7 cm2 Ao V2 VTI: 22.0 cm CHET(V,D): 3.5 cm2 sev ratio: 0.84 CHET indexed to BSA (cm^2/m^2): 1.8 MV E max elvis: 62.9 cm/sec TR max elvis: 263.4 cm/sec MV A max elvis: 78.6 cm/sec TR max P.8 mmHg MV E/A: 0.80 PA V2 max: 68.7 cm/sec Med Peak E' Elvis: 5.8 cm/sec PA V2 mean: 47.0 cm/sec E/E' med: 10.8 PA mean P.00 mmHg Lat Peak E' Elvis: 6.8 cm/sec PA pr(Accel): 46.5 mmHg E/E' lat: 9.3 E/e' average: 10.1 MV dec time: 0.22 sec SVYADI): 82.4 ml Reading Physician:11:46 AM
== END ==
PROVIDERS: Family Provider Family Medicine; PCP Family Medicine; Referring Provider Internal Medicine Cardiovascular Disease; Visit Provider Internal Medicine Cardiovascular Disease
DX: J90 Pleural effusion, not elsewhere classified (principal); I34.0 Nonrheumatic mitral (valve) insufficiency; I37.1 Nonrheumatic pulmonary valve insufficiency; I77.89 Other specified disorders of arteries and arterioles
CPT/HCPCS: 93306

== ENCOUNTER → 2019-10-30 14:48 | Outpatient (CLI) | payer MEDICARE, SELFPAY ==
[2019-06-12 03:33] VITALS: BMI 30.4
--- NOTE | 2019-10-30 | DI.RAD.S_ITS ---
PROCEDURE: XR CHEST 2V INDICATIONS: SHORTNESS OF BREATH TECHNIQUE: 2 views of the chest were acquired. COMPARISON: [facility], CR, XR CHEST 2V, 06/05/2019, 16:13. [facility], CR, XR CHEST 1V, 06/11/2019, 21:06. FINDINGS: Surgical changes and devices: None. Lungs and pleura: Retrocardiac opacification is unchanged. Probable elevation of the left hemidiaphragm. Cannot exclude small left pleural effusion. No right pleural effusions or pneumothorax. Scattered subsegmental atelectasis and/or scarring. No new consolidation. Mediastinum: Mediastinal contours are normal. Heart size is normal. Bones and chest wall: No suspicious bony abnormalities. Soft tissues appear unremarkable. IMPRESSION: Overall, grossly stable examination. No acute disease Dictated by: Jaime Oconnor M.D. on 10/30/2019 at 16:47 Approved by: Jaime Oconnor M.D. on 10/30/2019 at 16:49
[2019-10-30 16:24] LABS: Add Manual Diff / Slide Review NO; Basophils Absolute Auto 100 /uL (0-100); Basophils Percent Auto 0.9 % (0-2); Eosinophils Absolute Auto 100 /uL (0-450); Eosinophils Percent Auto 1.5 % (2-4); Hemoglobin 13.8 g/dL (13.5-17.5); Lymphocytes Absolute Auto 1400 /uL (1100-4500); Lymphocytes Percent Auto 18.5 % (25-40); Mean Corpuscular HGB Conc 33.7 % (30-36); Mean Corpuscular Hemoglobin 32.7 PG (26-34); Mean Corpuscular Volume 96.9 fL (80-100); Monocytes Absolute Auto 400 /uL (0-900); Monocytes Percent Auto 5.8 % (3-14); Neutrophils Absolute Auto 5400 /uL (1500-7000); Neutrophils Percent Auto 73.3 % (50-75); Platelet Count 273 X10^3/uL (150-400); Red Blood Cell Count 4.23 X10^6/uL (4.5-5.9); Red Cell Distribution Width 16.5 % (11.6-14.8); White Blood Cell Count 7.4 X10^3/uL (4.5-11.0)
[2019-10-30 16:42] LABS: Alanine Aminotransferase 18 IU/L (<50); Albumin 3.8 g/dL (3.5-5.0); Albumin Globulin Ratio 1.6 (1.0-2.8); Alkaline Phosphatase 51 U/L (38-126); Aspartate Aminotransferase 27 IU/L (17-59); BUN Creatinine Ratio 17.9 (6-22); Bilirubin Total 0.8 mg/dL (0.2-1.3); Blood Urea Nitrogen 15 mg/dL (9-20); C-Reactive Protein Quant 1.2 mg/dL (<1.0); Calcium 9.1 mg/dL (8.4-10.2); Carbon Dioxide 28 mmol/L (22-32); Chloride 105 mmol/L (98-107); Estimated Glomerular Filt Rate > 60.0 mL/min (>60); Globulin 2.4 g/dL (1.7-4.1); Glucose 125 mg/dL (80-110); HEMOLYSIS < 15 (0-50); Sodium 137 mmol/L (137-145); Total Protein 6.2 g/dL (6.3-8.2); Uric Acid 4.4 mg/dL (3.5-8.5)
[2019-10-30 16:59] LABS: Erythrocyte Sedimentation Rate 11 MM/HR (0-15)
[2019-10-30 17:16] LABS: NT-proBNP (BNP-Adult 18+) 3260 pg/mL (<450)
== END ==
PROVIDERS: Family Provider Family Medicine; PCP Family Medicine; Referring Provider Internal Medicine Cardiovascular Disease; Visit Provider Internal Medicine Rheumatology
DX: R06.02 Shortness of breath (principal); M35.3 Polymyalgia rheumatica
CPT/HCPCS: 36415; 71046; 80053; 83880; 84550; 85025; 85651; 86140

== ENCOUNTER → 2019-11-15 14:38 | Outpatient (CLI) | payer MEDICARE, SELFPAY ==
[2019-06-12 03:33] VITALS: BMI 30.4
--- NOTE | 2019-11-15 14:41 | DI.RAD.S_ITS ---
PROCEDURE: XR CHEST 2V INDICATIONS: SHORTNESS OF BREATH TECHNIQUE: 2 views of the chest were acquired. COMPARISON: [facility], CR, XR CHEST 2V, 10/30/2019, 16:00. [facility], CR, XR CHEST 1V, 06/11/2019, 21:06. FINDINGS: Surgical changes and devices: None. Lungs and pleura: Lungs are abnormal with mild interstitial prominence, chronic and there is elevation of the left diaphragm, also chronic. No pleural effusions or pneumothorax. Mediastinum: Mediastinal contours are normal. Heart size is mildly enlarged, globally. Bones and chest wall: No suspicious bony abnormalities. Soft tissues appear unremarkable. IMPRESSION: Chronic elevation of the left hemidiaphragm, global mild cardiomegaly. Interstitial prominence, suspect prior smoking history. COPD likely is present. A small degree of chronic CHF could be superimposed. Dictated by: Ori Petersen M.D. on 11/15/2019 at 16:02 Approved by: Ori Petersen M.D. on 11/15/2019 at 16:03
[2019-11-15 16:13] LABS: Add Manual Diff / Slide Review NO; Basophils Absolute Auto 100 /uL (0-100); Basophils Percent Auto 0.8 % (0-2); Eosinophils Absolute Auto 100 /uL (0-450); Eosinophils Percent Auto 0.9 % (2-4); Hematocrit 41.6 % (41-53); Hemoglobin 13.5 g/dL (13.5-17.5); Lymphocytes Absolute Auto 1400 /uL (1100-4500); Lymphocytes Percent Auto 16.9 % (25-40); Mean Corpuscular HGB Conc 32.4 % (30-36); Mean Corpuscular Hemoglobin 32.2 PG (26-34); Mean Corpuscular Volume 99.3 fL (80-100); Monocytes Absolute Auto 700 /uL (0-900); Monocytes Percent Auto 8.2 % (3-14); Neutrophils Absolute Auto 6200 /uL (1500-7000); Neutrophils Percent Auto 73.2 % (50-75); Platelet Count 254 X10^3/uL (150-400); Red Blood Cell Count 4.19 X10^6/uL (4.5-5.9); Red Cell Distribution Width 16.6 % (11.6-14.8); White Blood Cell Count 8.4 X10^3/uL (4.5-11.0)
[2019-11-15 16:38] LABS: Alanine Aminotransferase 15 IU/L (<50); Albumin Globulin Ratio 1.7 (1.0-2.8); Alkaline Phosphatase 54 U/L (38-126); Aspartate Aminotransferase 25 IU/L (17-59); BUN Creatinine Ratio 18.1 (6-22); Bilirubin Total 0.8 mg/dL (0.2-1.3); Blood Urea Nitrogen 15 mg/dL (9-20); Calcium 9.2 mg/dL (8.4-10.2); Carbon Dioxide 27 mmol/L (22-32); Chloride 103 mmol/L (98-107); Estimated Glomerular Filt Rate > 60.0 mL/min (>60); Globulin 2.4 g/dL (1.7-4.1); Glucose 100 mg/dL (80-110); HEMOLYSIS < 15 (0-50); Magnesium 2.3 mg/dL (1.6-2.3); Sodium 136 mmol/L (137-145); Total Protein 6.4 g/dL (6.3-8.2)
[2019-11-15 16:40] LABS: Erythrocyte Sedimentation Rate 7 MM/HR (0-15)
== END ==
PROVIDERS: Family Provider Family Medicine; PCP Family Medicine; Referring Provider Family Medicine; Visit Provider Family Medicine
DX: I48.91 Unspecified atrial fibrillation (principal); R06.02 Shortness of breath; I11.9 Hypertensive heart disease without heart failure
CPT/HCPCS: 36415; 71046; 80053; 83735; 85025; 85651

== ENCOUNTER → 2020-11-12 11:38 | Outpatient (CLI) | payer MEDICARE, SELFPAY ==
[2019-06-12 03:33] VITALS: BMI 30.4
[2020-11-12 20:16] LABS: Add Manual Diff / Slide Review NO; Basophils Absolute Auto 100 /uL (0-100); Basophils Percent Auto 0.9 % (0-2); Eosinophils Absolute Auto 100 /uL (0-450); Hematocrit 47.6 % (41-53); Hemoglobin 15.2 g/dL (13.5-17.5); Lymphocytes Absolute Auto 800 /uL (1100-4500); Lymphocytes Percent Auto 8.1 % (25-40); Mean Corpuscular HGB Conc 31.9 % (30-36); Mean Corpuscular Hemoglobin 32.8 PG (26-34); Mean Corpuscular Volume 102.8 fL (80-100); Monocytes Absolute Auto 500 /uL (0-900); Monocytes Percent Auto 5.4 % (3-14); Neutrophils Absolute Auto 7900 /uL (1500-7000); Neutrophils Percent Auto 84.6 % (50-75); Platelet Count 209 X10^3/uL (150-400); Red Blood Cell Count 4.63 X10^6/uL (4.5-5.9); Red Cell Distribution Width 16.9 % (11.6-14.8); White Blood Cell Count 9.3 X10^3/uL (4.5-11.0)
[2020-11-12 20:20] LABS: Alanine Aminotransferase 23 IU/L (<50); Albumin 3.9 g/dL (3.5-5.0); Albumin Globulin Ratio 1.7 (1.0-2.8); Alkaline Phosphatase 52 U/L (38-126); Aspartate Aminotransferase 31 IU/L (17-59); BUN Creatinine Ratio 25.3 (6-22); Bilirubin Total 1.3 mg/dL (0.2-1.3); Blood Urea Nitrogen 20 mg/dL (9-20); C-Reactive Protein Quant 0.8 mg/dL (<1.0); Calcium 9.3 mg/dL (8.4-10.2); Carbon Dioxide 27 mmol/L (22-32); Chloride 105 mmol/L (98-107); Estimated Glomerular Filt Rate > 60.0 mL/min (>60); Globulin 2.3 g/dL (1.7-4.1); Glucose 138 mg/dL (80-110); HEMOLYSIS < 15 (0-50); Potassium 3.8 mmol/L (3.4-5.1); Sodium 139 mmol/L (137-145); Total Protein 6.2 g/dL (6.3-8.2)
[2020-11-12 20:43] LABS: Erythrocyte Sedimentation Rate 1 MM/HR (0-15)
== END ==
PROVIDERS: Family Provider Family Medicine; Visit Provider Internal Medicine Rheumatology
DX: S80.829A Blister (nonthermal), unspecified lower leg, initial encounter (principal)
CPT/HCPCS: 80053; 84550; 85025; 85651; 86140

== ENCOUNTER → 2021-02-17 11:56 | Outpatient (CLI) | payer MEDICARE, SELFPAY ==
[2019-06-12 03:33] VITALS: BMI 30.4
[2021-02-17 19:01] LABS: Add Manual Diff / Slide Review NO; Basophils Absolute Auto 0 /uL (0-100); Basophils Percent Auto 0.6 % (0-2); Eosinophils Absolute Auto 100 /uL (0-450); Hematocrit 45.7 % (41-53); Hemoglobin 14.8 g/dL (13.5-17.5); Lymphocytes Absolute Auto 700 /uL (1100-4500); Lymphocytes Percent Auto 9.4 % (25-40); Mean Corpuscular HGB Conc 32.4 % (30-36); Mean Corpuscular Hemoglobin 33.2 PG (26-34); Mean Corpuscular Volume 102.4 fL (80-100); Monocytes Absolute Auto 500 /uL (0-900); Monocytes Percent Auto 6.4 % (3-14); Neutrophils Absolute Auto 6100 /uL (1500-7000); Neutrophils Percent Auto 82.6 % (50-75); Platelet Count 186 X10^3/uL (150-400); Red Blood Cell Count 4.46 X10^6/uL (4.5-5.9); White Blood Cell Count 7.4 X10^3/uL (4.5-11.0)
[2021-02-17 19:14] LABS: Alanine Aminotransferase 23 IU/L (<50); Albumin Globulin Ratio 1.7 (1.0-2.8); Alkaline Phosphatase 53 U/L (38-126); Aspartate Aminotransferase 26 IU/L (17-59); BUN Creatinine Ratio 21.1 (6-22); Bilirubin Total 1.7 mg/dL (0.2-1.3); Blood Urea Nitrogen 15 mg/dL (9-20); Calcium 9.3 mg/dL (8.4-10.2); Carbon Dioxide 34 mmol/L (22-32); Chloride 102 mmol/L (98-107); Estimated Glomerular Filt Rate > 60.0 mL/min (>60); Globulin 2.3 g/dL (1.7-4.1); Glucose 108 mg/dL (80-110); HEMOLYSIS < 15 (0-50); Potassium 3.9 mmol/L (3.4-5.1); Sodium 142 mmol/L (137-145); Total Protein 6.3 g/dL (6.3-8.2); Uric Acid 3.6 mg/dL (3.5-8.5)
== END ==
PROVIDERS: Family Provider Family Medicine; PCP Family Medicine; Visit Provider Physician Assistant
DX: M35.3 Polymyalgia rheumatica (principal); Z87.39 Personal history of other diseases of the musculoskeletal system and connective tissue
CPT/HCPCS: 80053; 84550; 85025

== ENCOUNTER → 2021-03-13 13:01 | Outpatient (CLI) | payer MEDICARE, SELFPAY ==
[2019-06-12 03:33] VITALS: BMI 30.4
[2021-03-13 19:39] LABS: Alanine Aminotransferase 26 IU/L (<50); Albumin Globulin Ratio 1.7 (1.0-2.8); Alkaline Phosphatase 49 U/L (38-126); Aspartate Aminotransferase 30 IU/L (17-59); BUN Creatinine Ratio 20.3 (6-22); Bilirubin Total 1.2 mg/dL (0.2-1.3); Blood Urea Nitrogen 15 mg/dL (9-20); Calcium 9.3 mg/dL (8.4-10.2); Carbon Dioxide 34 mmol/L (22-32); Chloride 103 mmol/L (98-107); Estimated Glomerular Filt Rate > 60.0 mL/min (>60); Globulin 2.4 g/dL (1.7-4.1); Glucose 160 mg/dL (80-110); HEMOLYSIS < 15 (0-50); Potassium 3.2 mmol/L (3.4-5.1); Sodium 144 mmol/L (137-145); Total Protein 6.4 g/dL (6.3-8.2)
== END ==
PROVIDERS: Family Provider Family Medicine; PCP Physician Assistant; Visit Provider Physician Assistant
DX: R60.0 Localized edema (principal); Z79.899 Other long term (current) drug therapy
CPT/HCPCS: 80053

== ENCOUNTER → 2021-05-21 11:54 | Outpatient (CLI) | payer MEDICARE, SELFPAY ==
[2019-06-12 03:33] VITALS: BMI 30.4
[2021-05-21 19:13] LABS: Add Manual Diff / Slide Review NO; Basophils Absolute Auto 0 /uL (0-100); Basophils Percent Auto 0.4 % (0-2); Eosinophils Absolute Auto 100 /uL (0-450); Eosinophils Percent Auto 0.7 % (2-4); Hematocrit 46.1 % (41-53); Hemoglobin 15.4 g/dL (13.5-17.5); Lymphocytes Absolute Auto 600 /uL (1100-4500); Lymphocytes Percent Auto 6.9 % (25-40); Mean Corpuscular HGB Conc 33.3 % (30-36); Mean Corpuscular Hemoglobin 33.3 PG (26-34); Mean Corpuscular Volume 99.8 fL (80-100); Monocytes Absolute Auto 600 /uL (0-900); Monocytes Percent Auto 7.2 % (3-14); Neutrophils Absolute Auto 6900 /uL (1500-7000); Neutrophils Percent Auto 84.8 % (50-75); Platelet Count 193 X10^3/uL (150-400); Red Blood Cell Count 4.62 X10^6/uL (4.5-5.9); Red Cell Distribution Width 17.1 % (11.6-14.8); White Blood Cell Count 8.1 X10^3/uL (4.5-11.0)
[2021-05-21 19:45] LABS: BUN Creatinine Ratio 19.5 (6-22); Blood Urea Nitrogen 16 mg/dL (9-20); Calcium 9.5 mg/dL (8.4-10.2); Carbon Dioxide 32 mmol/L (22-32); Chloride 103 mmol/L (98-107); Estimated Glomerular Filt Rate > 60.0 mL/min (>60); Glucose 141 mg/dL (80-110); HEMOLYSIS 15 (0-50); Potassium 3.8 mmol/L (3.4-5.1); Sodium 139 mmol/L (137-145)
== END ==
PROVIDERS: Family Provider Family Medicine; PCP Family Medicine; Referring Provider Internal Medicine Cardiovascular Disease; Visit Provider Internal Medicine Cardiovascular Disease
DX: I10 Essential (primary) hypertension (principal)
CPT/HCPCS: 80048; 85025

== ENCOUNTER → 2021-07-22 13:36 | Outpatient (CLI) | payer MEDICARE, SELFPAY ==
[2019-06-12 03:33] VITALS: BMI 30.4
[2021-07-22 19:07] LABS: Alanine Aminotransferase 23 IU/L (<50); Albumin 4.3 g/dL (3.5-5.0); Albumin Globulin Ratio 1.8 (1.0-2.8); Alkaline Phosphatase 55 U/L (38-126); Aspartate Aminotransferase 27 IU/L (17-59); BUN Creatinine Ratio 26.6 (6-22); Bilirubin Total 1.4 mg/dL (0.2-1.3); Bilirubin Unconjugated 1.2 mg/dL (0.0-1.1); Blood Urea Nitrogen 21 mg/dL (9-20); C-Reactive Protein Quant 0.5 mg/dL (<1.0); Calcium 9.3 mg/dL (8.4-10.2); Carbon Dioxide 26 mmol/L (22-32); Chloride 105 mmol/L (98-107); Estimated Glomerular Filt Rate > 60.0 mL/min (>60); Globulin 2.4 g/dL (1.7-4.1); Glucose 120 mg/dL (80-110); HEMOLYSIS < 15 (0-50); Potassium 4.1 mmol/L (3.4-5.1); Sodium 141 mmol/L (137-145); Total Protein 6.7 g/dL (6.3-8.2); Uric Acid 2.4 mg/dL (3.5-8.5)
[2021-07-22 19:16] LABS: Add Manual Diff / Slide Review NO; Basophils Absolute Auto 100 /uL (0-100); Eosinophils Absolute Auto 100 /uL (0-450); Eosinophils Percent Auto 1.6 % (2-4); Hematocrit 43.9 % (41-53); Hemoglobin 14.7 g/dL (13.5-17.5); Lymphocytes Absolute Auto 600 /uL (1100-4500); Lymphocytes Percent Auto 6.8 % (25-40); Mean Corpuscular HGB Conc 33.5 % (30-36); Mean Corpuscular Hemoglobin 33.4 PG (26-34); Mean Corpuscular Volume 99.7 fL (80-100); Monocytes Absolute Auto 700 /uL (0-900); Monocytes Percent Auto 7.8 % (3-14); Neutrophils Absolute Auto 7200 /uL (1500-7000); Neutrophils Percent Auto 82.8 % (50-75); Platelet Count 213 X10^3/uL (150-400); Red Blood Cell Count 4.41 X10^6/uL (4.5-5.9); Red Cell Distribution Width 16.6 % (11.6-14.8); White Blood Cell Count 8.8 X10^3/uL (4.5-11.0)
[2021-07-22 20:13] LABS: Erythrocyte Sedimentation Rate 3 MM/HR (0-15)
== END ==
PROVIDERS: Family Provider Family Medicine; PCP Family Medicine; Visit Provider Internal Medicine Rheumatology
DX: M05.79 Rheumatoid arthritis with rheumatoid factor of multiple sites without organ or systems involvement (principal)
CPT/HCPCS: 80053; 80076; 84550; 85025; 85651; 86140

== ENCOUNTER → 2021-08-04 13:34 | Outpatient (CLI) | payer MEDICARE, SELFPAY ==
[2021-07-31 14:15] VITALS: BMI 30.4
[2021-08-04 19:00] LABS: Add Manual Diff / Slide Review NO; Basophils Absolute Auto 100 /uL (0-100); Basophils Percent Auto 0.7 % (0-2); Eosinophils Absolute Auto 100 /uL (0-450); Hematocrit 41.8 % (41-53); Hemoglobin 13.8 g/dL (13.5-17.5); Lymphocytes Absolute Auto 400 /uL (1100-4500); Lymphocytes Percent Auto 5.7 % (25-40); Mean Corpuscular HGB Conc 32.9 % (30-36); Mean Corpuscular Hemoglobin 32.8 PG (26-34); Mean Corpuscular Volume 99.8 fL (80-100); Monocytes Absolute Auto 500 /uL (0-900); Monocytes Percent Auto 6.4 % (3-14); Neutrophils Absolute Auto 6700 /uL (1500-7000); Neutrophils Percent Auto 86.2 % (50-75); Platelet Count 191 X10^3/uL (150-400); Red Blood Cell Count 4.19 X10^6/uL (4.5-5.9); Red Cell Distribution Width 16.7 % (11.6-14.8); White Blood Cell Count 7.8 X10^3/uL (4.5-11.0)
[2021-08-04 19:16] LABS: BUN Creatinine Ratio 26.1 (6-22); Blood Urea Nitrogen 23 mg/dL (9-20); Carbon Dioxide 27 mmol/L (22-32); Chloride 103 mmol/L (98-107); Estimated Glomerular Filt Rate > 60.0 mL/min (>60); Glucose 119 mg/dL (80-110); HEMOLYSIS < 15 (0-50); Potassium 4.2 mmol/L (3.4-5.1); Sodium 137 mmol/L (137-145)
[2021-08-04 19:18] LABS: NT-proBNP (BNP-Adult 18+) 1350 pg/mL (<450)
== END ==
PROVIDERS: Family Provider Family Medicine; PCP Family Medicine; Visit Provider Internal Medicine Cardiovascular Disease
DX: R06.02 Shortness of breath (principal)
CPT/HCPCS: 80048; 83880; 85025

== ENCOUNTER → 2021-08-25 13:35 | Outpatient (CLI) | payer MEDICARE, SELFPAY ==
[2021-07-31 14:15] VITALS: BMI 30.4
[2021-08-25 18:41] LABS: BUN Creatinine Ratio 23.7 (6-22); Blood Urea Nitrogen 22 mg/dL (9-20); Carbon Dioxide 28 mmol/L (22-32); Chloride 104 mmol/L (98-107); Estimated Glomerular Filt Rate > 60 mL/min (>60); Glucose 127 mg/dL (80-110); HEMOLYSIS 22 (0-50); Potassium 4.4 mmol/L (3.4-5.1); Sodium 141 mmol/L (137-145)
[2021-08-25 18:49] LABS: NT-proBNP (BNP-Adult 18+) 1480 pg/mL (<450)
== END ==
PROVIDERS: Family Provider Family Medicine; PCP Physician Assistant; Visit Provider Family Medicine
DX: R60.0 Localized edema (principal); I10 Essential (primary) hypertension; I50.9 Heart failure, unspecified
CPT/HCPCS: 80048; 83880

== ENCOUNTER 2021-09-12 16:05 | Inpatient (IN) | payer MEDICARE, SELFPAY ==
[2021-07-31 14:15] VITALS: BMI 30.4
[2021-09-12] VITALS (11 sets, daily range): BP systolic 103–124; BP diastolic 58–71; PULSE 99–120; RESP 18–28; TEMP 37.1; O2SAT 92–98; BMI 28.7; BMI 29.0
--- NOTE | 2021-09-12 16:20 | DI.RAD.S_ITS ---
PROCEDURE: XR CHEST 1V INDICATIONS: possible aspiration TECHNIQUE: One view of the chest was acquired. COMPARISON: [facility] ([place]), CR, XR CHEST 2V, 08/04/2021, 13:41. [facility], CR, XR CHEST 1V, 06/11/2019, 21:06. FINDINGS: Surgical changes and devices: None. Lungs and pleura: Chronic left hemidiaphragm elevation with left basilar atelectasis. Possible small left pleural effusion. Pulmonary vascularity is prominent. No pneumothorax. Mediastinum: Mediastinal contours appear normal. Heart size is mildly increased. Bones and chest wall: No suspicious bony lesions. Overlying soft tissues appear unremarkable. IMPRESSION: 1. Prominent pulmonary vascularity suggesting mild pulmonary edema. 2. Chronic left hemidiaphragm elevation. Left basilar opacity may be aspiration or atelectasis. Dictated by: Maxim Maldonado M.D. on 09/12/2021 at 16:29 Approved by: Maxim Maldonado M.D. on 09/12/2021 at 16:30
[2021-09-12 16:36] LABS: Add Manual Diff / Slide Review NO; Basophils Absolute Auto 100 /uL (0-100); Basophils Percent Auto 0.7 % (0-2); Eosinophils Absolute Auto 100 /uL (0-450); Eosinophils Percent Auto 1.2 % (2-4); Hematocrit 41.3 % (41-53); Hemoglobin 14.1 g/dL (13.5-17.5); Lymphocytes Absolute Auto 500 /uL (1100-4500); Lymphocytes Percent Auto 4.9 % (25-40); Mean Corpuscular HGB Conc 34.1 % (30-36); Mean Corpuscular Hemoglobin 33.3 PG (26-34); Mean Corpuscular Volume 97.7 fL (80-100); Monocytes Absolute Auto 1100 /uL (0-900); Monocytes Percent Auto 10.1 % (3-14); Neutrophils Absolute Auto 9000 /uL (1500-7000); Neutrophils Percent Auto 83.1 % (50-75); Platelet Count 207 X10^3/uL (150-400); Red Blood Cell Count 4.22 X10^6/uL (4.5-5.9); Red Cell Distribution Width 16.7 % (11.6-14.8); White Blood Cell Count 10.8 X10^3/uL (4.5-11.0)
--- NOTE | 2021-09-12 16:38 | ED.NEUROSD ---
HPI - Neuro Symptoms/Deficit General Chief Complaint: Altered Mental Status Stated Complaint: Fall, difficulty swallowing x 2 weeks, on thinners Time Seen by Provider: 09/12/21 16:07 Source: patient and family Mode of arrival: Ambulatory History of Present Illness HPI Narrative: 86-year-old male former smoker with extensive medical history including myocardial infarction, CHF, AFib on Coumadin, hypertension, hyperlipidemia, COPD, polymyalgia rheumatica presents by air medical transport for evaluation of a combination symptoms over the past 2 weeks. Patient has had increasing difficulty swallowing. He is controlling his secretions in his airway is protected but he is having a hard time getting food, liquid or his medications down. He denies any trouble breathing and has no abdominal pain, nausea or vomiting. Earlier in the day when having difficulty swallowing and attempt to get liquids down he had a coughing episode and may have aspirated a bit. He denies any dizziness, blurred vision or trouble with speech. He denies any focal findings such is extremity numbness, weakness or tingling. He did have a choking episode earlier today which caused him to fall secondary to a likely brief syncopal episode. Additionally he has had a few falls in the past 2 weeks. On Anticoagulants: Yes Related Data Home Medications Medication Instructions Recorded Confirmed ascorbic acid (vitamin C) 500 mg 500 mg PO BID 05/04/18 09/12/21 tablet methotrexate sodium (PF) 25 mg/mL 1 ml IM QWEEK 05/04/18 09/12/21 injection solution multivitamin (One Daily 1 tab PO DAILY 05/04/18 09/12/21 Multivitamin) gabapentin 100 mg capsule 100 mg PO TID 06/05/19 09/12/21 albuterol sulfate 90 mcg/actuation 2 puff INHALATION Q4H PRN gram 11/07/20 09/12/21 aerosol inhaler acetaminophen 500 mg tablet 1,000 mg PO TID PRN tab 08/25/21 09/12/21 (Tylenol Extra Strength) amlodipine 10 mg tablet 10 mg PO DAILY 08/25/21 09/12/21 losartan 100 mg tablet 100 mg PO DAILY 08/25/21 09/12/21 magnesium chloride 64 mg PO DAILY tab 08/25/21 09/12/21 spironolactone 25 mg tablet 25 mg PO DAILY 08/25/21 09/12/21 prednisone 5 mg tablet 5 mg PO BEDTIME 09/12/21 09/12/21 Previous Rx's Medication Instructions Recorded finasteride 5 mg tablet 5 mg PO DAILY #90 tab 03/31/21 allopurinol 300 mg tablet 300 mg PO DAILY #90 tab 06/03/21 lovastatin 40 mg tablet 40 mg PO QPM #90 tab NS 06/03/21 metoprolol succinate 100 mg 100 mg PO DAILY #90 tab 06/03/21 tablet,extended release 24 hr tamsulosin 0.4 mg capsule (Flomax) 0.8 mg PO QPM #180 cap 06/03/21 warfarin 2.5 mg tablet (Jantoven) 2.5 mg PO DAILY #90 tab 06/03/21 torsemide 20 mg tablet 20 mg PO DAILY #90 tab 08/25/21 budesonide-formoterol HFA 80 2 puff INHALATION BID #3 unit 09/02/21 mcg-4.5 mcg/actuation aerosol inhaler (Symbicort) Allergies Allergy/AdvReac Type Severity Reaction Status Date / Time latex [LATEX] Allergy Mild Rash Verified 09/12/21 16:06 Review of Systems Review of Systems Narrative: GENERAL: Denies chills, fatigue, malaise, fever, sweats. HEENT: Denies sinus pain, ear pain, sore throat, difficulty swallowing, dizziness. RESPIRATORY: Denies dyspnea, cough, wheezing, hemoptysis, sputum. CARDIOVASCULAR: Denies chest pain, palpitations, orthopnea, edema, GASTROINTESTINAL: Denies nausea, vomiting, abdominal pain, diarrhea, constipation, melena. : Denies dysuria, frequency, incontinence, hematuria, urinary retention. MUSCULOSKELETAL: denies weakness, joint pain, or bony pain SKIN: Denies rash, skin lesions, or other NEUROLOGIC: See HPI PSYCHIATRIC: No concerning psychosocial issues. 12 point review of systems is negative except for those stated above Hematologic/Lymphatic On Anticoagulants: Yes Patient History Medical History Age related cataract Ankle pain Anticoagulation goal of INR 2 to 3 Atrial fibrillation Atrial fibrillation Benign prostatic hyperplasia Chicken pox Cholelithiasis Chronic anticoagulation Chronic back pain COPD (chronic obstructive pulmonary disease) Gout Hearing loss Hemorrhoid History of gastric ulcer History of tobacco use Hyperlipidemia Hypertension Measles Mumps Obesity Osteoarthritis Pericarditis Pericarditis Polymyalgia rheumatica Tinnitus Vision disorder Surgical History Anesthesia History of ankle surgery (~1965) History of appendectomy (~2018) History of cataract removal with insertion of prosthetic lens History of laparotomy (~2000) History of tonsillectomy (~1944) Family History Mother Hypertension Heart disease Diabetes mellitus Hyperlipidemia Father Hypertension Hyperlipidemia Grandmother Pneumonia Social History marital status: household members: spouse occupational status: previously employed Smoking Status: Former smoker alcohol intake: former substance use type: does not use Smoking Status: Former smoker alcohol intake frequency: holidays/special occasions only Substance Use Type: does not use Exam Narrative Exam Narrative: GENERAL: [86] year old patient appears stated age. He is in no respiratory distress but frequently coughing up secretions, he states it is easier to swelled and suction the mouth. He is guarding his airway without difficulty. GCS 15 HEAD: Atraumatic. Normocephalic. EYES: Pupils equal round and reactive. Extraocular motions intact. No scleral icterus. No injection or drainage. ENT: Nose without bleeding, purulent drainage. Throat without erythema, tonsillar hypertrophy or exudate. Airway patent. NECK: Trachea midline. Non tender CARDIOVASCULAR: Regular rate and rhythm without murmurs, gallops, or rubs. RESPIRATORY: Clear to auscultation. Breath sounds equal bilaterally. No wheezes, rales, or rhonchi. GASTROINTESTINAL: Abdomen soft, non-tender, nondistended. EXTREMITIES: No edema or joint tenderness. BACK: Nontender without deformity or crepitance. No flank tenderness. NEURO: AOx3. Cranial nerves 2-12 grossly intact SKIN: No rash or erythema of visible areas Initial Vital Signs Initial Vital Signs: Vital Signs Pulse Rate 102 H 09/12/21 16:03 Pulse Oximetry 93 09/12/21 16:03 Course Orders Ordered: Albuterol (Albuterol 2.5 Mg/3 Ml Neb (Adult)) 2.5 mg INH [id number] PRN PRN Reason: Shortness Of Breath Allopurinol (Allopurinol 300 Mg Tablet) 300 mg PO DAILY [facility] Aspirin (Aspirin Ec 81 Mg Tablet) 81 mg PO DAILY [facility] Atorvastatin Calcium (Atorvastatin 20 Mg Tablet) 10 mg PO BEDTIME [facility] Last Admin: 09/13/21 20:37 Dose: 10 mg Documented by: [email or web address] Budesonide (Budesonide 0.5 Mg/2 Ml Neb) 0.5 mg INH RTBID [facility] Last Admin: 09/13/21 20:18 Dose: 0.5 mg Documented by: [email or web address] Admin: 09/13/21 10:17 Dose: 0.5 mg Documented by: LEILA Gabapentin (Gabapentin 100 Mg Capsule) 100 mg PO TID [facility] Last Admin: 09/13/21 20:37 Dose: 100 mg Documented by: [email or web address] Admin: 09/13/21 15:40 Dose: Not Given Documented by: ARIANNAK Metoprolol Succinate (Metoprolol Er 50 Mg Tablet) 100 mg PO DAILY [facility] Morphine Sulfate (Morphine 2 Mg/Ml Inj) 2 mg IV Q4H PRN PRN Reason: Breakthrough pain only (8-10) Naloxone HCl (Naloxone 0.4 Mg/Ml Vial) 0.2 mg IV Q2MIN PRN PRN Reason: Opiate Reversal Ondansetron HCl (Ondansetron 4 Mg/2 Ml Inj) 4 mg IV Q8HR PRN PRN Reason: Nausea And Vomiting Prednisone (Prednisone 5 Mg Tablet) 5 mg PO BEDTIME [facility] Last Admin: 09/13/21 20:37 Dose: 5 mg Documented by: [email or web address] Tamsulosin HCl (Tamsulosin 0.4 Mg Capsule) 0.8 mg PO QPM [facility] Last Admin: 09/13/21 16:35 Dose: 0.8 mg Documented by: ARIANNAK Warfarin Sodium (Warfarin 5 Mg Tablet) 2.5 mg PO 1700 [facility] Last Admin: 09/13/21 16:35 Dose: 2.5 mg Documented by: ARIANNAK Discontinued Medications Furosemide (Furosemide 40 Mg/4 Ml Vial) 40 mg IV NOW ONE Stop: 09/12/21 17:34 Last Admin: 09/12/21 18:03 Dose: 40 mg Documented by: ASHELY Hydrocortisone (Hydrocortisone 100 Mg/2 Ml Vial) 50 mg IV DAILY [facility] Last Admin: 09/13/21 09:31 Dose: 50 mg Documented by: ARIANNAK Sodium Chloride (Normal Saline 0.45%) 1,000 mls @ 75 mls/hr IV CONT [facility] Last Admin: 09/12/21 22:04 Dose: 75 mls/hr Documented by: TRISTAN Sodium Chloride (Normal Saline 0.9%) 1,000 mls @ 1,000 mls/hr IV BOLUS ONE Stop: 09/13/21 17:32 Last Infusion: 09/13/21 17:42 Dose: 0 mls/hr Documented by: Admin: 09/13/21 16:42 Dose: 1,000 mls/hr Documented by: MOHINDER Methylprednisolone (Methylprednisolone 125 Mg/2 Ml Vial) 60 mg IV Q12H [facility] Last Admin: 09/12/21 22:03 Dose: 60 mg Documented by: TRISTAN Metoprolol Tartrate (Metoprolol Tartrate 5 Mg/5 Ml Inj) 5 mg IV Q6H PRN PRN Reason: Heart Rate High, >115; SBP>140 Last Admin: 09/13/21 13:21 Dose: 5 mg Documented by: MOHINDER Spironolactone (Spironolactone 25 Mg Tablet) 25 mg PO DAILY [facility] Torsemide (Torsemide 10 Mg Tablet) 20 mg PO DAILY [facility] Vital Signs Vital signs: Vital Signs - 8 hr 09/12/21 16:03 09/12/21 16:05 09/12/21 16:25 Temperature 98.8 F Pulse Rate 102 H 101 H 109 H Respiratory Rate 24 18 Blood Pressure 114/65 114/65 Pulse Oximetry 93 95 98 09/12/21 16:30 09/12/21 17:18 09/12/21 17:30 Temperature Pulse Rate 100 H 105 H 102 H Respiratory Rate 23 22 21 Blood Pressure Pulse Oximetry 95 95 09/12/21 18:00 Temperature Pulse Rate 99 H Respiratory Rate 27 H Blood Pressure Pulse Oximetry 92 MDM - Neuro Symptoms/Deficit Lab Data Result diagrams: 09/13/21 05:45 09/13/21 05:45 Labs: Lab Results 09/12/21 09/12/21 09/12/21 Range/Units 16:09 16:09 16:09 WBC 10.8 (4.5-11.0) X10^3/uL RBC 4.22 L (4.5-5.9) X10^6/uL Hgb 14.1 (13.5-17.5) g/dL Hct 41.3 (41-53) % MCV 97.7 (80-100) fL MCH 33.3 (26-34) PG MCHC 34.1 (30-36) % RDW 16.7 H (11.6-14.8) % Plt Count 207 (150-400) X10^3/uL Neut % (Auto) 83.1 H (50-75) % Lymph % (Auto) 4.9 L (25-40) % [place] % (Auto) 10.1 (3-14) % Eos % (Auto) 1.2 L (2-4) % Baso % (Auto) 0.7 (0-2) % Neut # (Auto) 9000 H (4660-5647) /uL Lymph # (Auto) 500 L (9712-1390) /uL [place] # (Auto) 1100 H (0-900) /uL Eos # (Auto) 100 (0-450) /uL Baso # (Auto) 100 (0-100) /uL ESR 19 H (0-15) MM/HR PT (10.1-12.7) SECONDS INR (0.9-1.3) Sodium 135 L (137-145) mmol/L Potassium 5.1 (3.4-5.1) mmol/L Chloride 102 (98-107) mmol/L Carbon Dioxide 24 (22-32) mmol/L BUN 22 H (9-20) mg/dL Creatinine 1.10 (0.66-1.25) mg/dL Estimated GFR > 60 (>60) mL/min BUN/Creatinine Ratio 20.0 (6-22) Glucose 129 H (80-110) mg/dL Calcium 9.0 (8.4-10.2) mg/dL Magnesium (1.6-2.3) mg/dL Total Bilirubin 1.8 H (0.2-1.3) mg/dL AST 35 (17-59) IU/L ALT 22 (<50) IU/L Alkaline Phosphatase 61 (38-126) U/L Total Creatine Kinase (55-170) U/L CK-MB (CK-2) (<2.37) ng/mL CK-MB (CK-2) Rel Index (1.5-5.0) % Troponin I (0.01-0.034) ng/mL NT-Pro-B Natriuret Pep (<450) pg/mL Total Protein 7.2 (6.3-8.2) g/dL Albumin 4.3 (3.5-5.0) g/dL Globulin 2.9 (1.7-4.1) g/dL Albumin/Globulin Ratio 1.5 (1.0-2.8) Lipase (23-300) U/L SARS-CoV-2 (PCR) (Negative) 09/12/21 09/12/21 09/12/21 Range/Units 16:09 16:09 16:10 WBC (4.5-11.0) X10^3/uL RBC (4.5-5.9) X10^6/uL Hgb (13.5-17.5) g/dL Hct (41-53) % MCV (80-100) fL MCH (26-34) PG MCHC (30-36) % RDW (11.6-14.8) % Plt Count (150-400) X10^3/uL Neut % (Auto) (50-75) % Lymph % (Auto) (25-40) % [place] % (Auto) (3-14) % Eos % (Auto) (2-4) % Baso % (Auto) (0-2) % Neut # (Auto) (7386-4302) /uL Lymph # (Auto) (4226-2835) /uL [place] # (Auto) (0-900) /uL Eos # (Auto) (0-450) /uL Baso # (Auto) (0-100) /uL ESR (0-15) MM/HR PT 34.5 H (10.1-12.7) SECONDS INR 3.0 H (0.9-1.3) Sodium (137-145) mmol/L Potassium (3.4-5.1) mmol/L Chloride (98-107) mmol/L Carbon Dioxide (22-32) mmol/L BUN (9-20) mg/dL Creatinine (0.66-1.25) mg/dL Estimated GFR (>60) mL/min BUN/Creatinine Ratio (6-22) Glucose (80-110) mg/dL Calcium (8.4-10.2) mg/dL Magnesium 2.4 H (1.6-2.3) mg/dL Total Bilirubin (0.2-1.3) mg/dL AST (17-59) IU/L ALT (<50) IU/L Alkaline Phosphatase (38-126) U/L Total Creatine Kinase 175 H (55-170) U/L CK-MB (CK-2) 2.89 H (<2.37) ng/mL CK-MB (CK-2) Rel Index 1.7 (1.5-5.0) % Troponin I < 0.012 (0.01-0.034) ng/mL NT-Pro-B Natriuret Pep 1790 H (<450) pg/mL Total Protein (6.3-8.2) g/dL Albumin (3.5-5.0) g/dL Globulin (1.7-4.1) g/dL Albumin/Globulin Ratio (1.0-2.8) Lipase 67 (23-300) U/L SARS-CoV-2 (PCR) Negative (Negative) Urine Dip Bedside Urine Glucose Negative Bedside Urine Bilirubin - Negative Bedside Urine Ketone - Negative Urine Specific [place] 1.015 Bedside Urine Occult Blood - Negative Bedside Urine pH 6.0 Bedside Urine Protein - Negative Bedside Urine Urobilinogen - Negative Bedside Urine Nitrite - Negative Bedside Urine Leukocytes - Negative Esterase Imaging Data CT scan - head: Radiologist's Impression: [address] [address] [address] Scan Report Signed Patient: Teja Gage MR#: [id number] : 1935 Acct:[id number] Age/Sex: 86 / M Date of Service: 09/12/21 Loc: ED Accession Number: [id number] ?? Procedure: CT angio head and neck Ordering Provider: Jai Jaimes D.O. PROCEDURE:? CT ANGIO HEAD AND NECK ? INDICATIONS:? trouble swallowing, falls, choking, cannot swallow pills ? TECHNIQUE:? Pre-contrast 4.5 mm thick sections acquired from the foramen magnum to the vertex.? After the administration of intravenous contrast, 1 mm thick sections acquired from the aortic arch through the [place] of [place].? Post-contrast 4.5 mm thick sections then re-acquired from the foramen magnum to the vertex.? 3-dimensional nuujrpp-vqkvcfgjk-trpxovswts (MIP) and/or volume rendering reformats were acquired of the central intracranial vasculature and neck separately. For radiation dose reduction, the following was used:? automated exposure control, adjustment of mA and/or kV according to patient size.? ? COMPARISON:? [facility], CR, XR CHEST 1V, 09/12/2021, 16:15. ? FINDINGS:? Image quality:? Excellent.? ? BRAIN:? CSF spaces:? Ventricles are normal in size and shape.? Basal cisterns are patent.? No extra-axial fluid collections.? ? Brain:? No midline shift.? No intracranial bleeds or masses.? There is mild cerebral volume loss.? There are old lacunar infarcts in right frontal white matter and basal ganglia bilaterally.? ? Skull and face:? Calvarium and facial bones appear intact, without suspicious lesions.? Orbits appear normal.? There is right parietal occipital scalp contusion. ? Sinuses:? Sinuses and mastoids are clear.? ? HEAD CT ANGIOGRAPHY:? Anterior circulation:? Intracranial internal carotid arteries are normal in size and flow.? The flow within the paired anterior cerebral arteries is normal and symmetric.? The flow within the middle cerebral arteries is normal and symmetric.? The anterior communicating artery is seen.? No aneurysms are seen.? ? Posterior circulation:? Visualized portions of the vertebral arteries demonstrate normal caliber, and join to form a normal appearing basilar artery.? origin of the right GRE TUTOR.? Flow within the posterior cerebral arteries is normal and symmetric.? No aneurysms are seen.? ? NECK CT ANGIOGRAPHY:? Carotid system:? The great vessels demonstrate a conventional anatomy as they arise from the aortic arch.? The origins of the common carotid arteries appear patent.? The common carotid arteries demonstrate normal caliber and courses.? The bifurcation regions are both widely patent.? The internal carotid arteries demonstrate normal calibers and courses.? ? Posterior circulation:? The origins of the vertebral arteries both appear widely patent.? The more superior extracranial portions of both vertebral arteries also demonstrate normal courses and calibers.? They join to form a normal appearing basilar artery.? ? Soft tissues:? Visualized neck soft tissues demonstrate no suspicious abnormalities.? Moderate emphysema.? Bibasilar atelectasis. ? Bones:? No suspicious bony lesions.? Visualized cervical spine appears normally aligned.? IMPRESSION:? ? 1. No acute intracranial abnormalities.? 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 ? 2. No large vessel occlusion or high-grade stenosis in anterior or posterior circulations. ? 3. No large vessel occlusion or high-grade stenosis in cervical carotid arteries or vertebral arteries bilaterally. ? 4. Right parietal occipital scalp contusion.? ? ? Any quantitative measurements of stenosis were performed using NASCET criteria.? ? ? Dictated by: Maxim Maldonado M.D. on 09/12/2021 at 16:41 ? ? Approved by: Maxim Maldonado M.D. on 09/12/2021 at 16:50 ? Discharge Plan Departure Patient Disposition: Admitted as Observation Clinical Impression: Acute CHF, Dysphagia Admit Date/Time: 09/12/21 18:49 Admit Provider: Ash Baldwin
[2021-09-12 16:49] LABS: Alanine Aminotransferase 22 IU/L (<50); Albumin 4.3 g/dL (3.5-5.0); Albumin Globulin Ratio 1.5 (1.0-2.8); Alkaline Phosphatase 61 U/L (38-126); Aspartate Aminotransferase 35 IU/L (17-59); Bilirubin Total 1.8 mg/dL (0.2-1.3); Blood Urea Nitrogen 22 mg/dL (9-20); Carbon Dioxide 24 mmol/L (22-32); Chloride 102 mmol/L (98-107); Estimated Glomerular Filt Rate > 60 mL/min (>60); Globulin 2.9 g/dL (1.7-4.1); Glucose 129 mg/dL (80-110); HEMOLYSIS 18 (0-50); Potassium 5.1 mmol/L (3.4-5.1); Sodium 135 mmol/L (137-145); Total Protein 7.2 g/dL (6.3-8.2)
[2021-09-12 16:50] LABS: Creatine Kinase 175 U/L (55-170); Lipase 67 U/L (23-300); Magnesium 2.4 mg/dL (1.6-2.3)
--- NOTE | 2021-09-12 16:55 | DI.RAD.S_ITS ---
PROCEDURE: XR KNEE LT 3V INDICATIONS: knee pain after fall TECHNIQUE: <3> views of the knee were acquired. COMPARISON: None. FINDINGS: Bones: Advanced osteoarthritic changes, worst in the patellofemoral compartment. No acute fracture or dislocation. The femoral trochlea is shallow. Soft tissues: Suspect a small joint effusion. There is also some prepatellar swelling. IMPRESSION: No acute fracture or dislocation. Advanced osteoarthritis, worst in the patellofemoral compartment. Shallow femoral trochlea. Suspect a small joint effusion and prepatellar soft tissue swelling. Dictated by: Del Peralta M.D. on 09/12/2021 at 17:38 Approved by: Del Peralta M.D. on 09/12/2021 at 17:40
[2021-09-12 17:01] LABS: NT-proBNP (BNP-Adult 18+) 1790 pg/mL (<450); Troponin I < 0.012 ng/mL (0.01-0.034)
[2021-09-12 17:05] LABS: CKMB % Relative Index 1.7 % (1.5-5.0); Creatine Kinase MB 2.89 ng/mL (<2.37)
[2021-09-12 17:11] LABS: COVID19 -Nasal RAPID Negative (Negative)
[2021-09-12 17:11] LABS: Erythrocyte Sedimentation Rate 19 MM/HR (0-15)
--- NOTE | 2021-09-12 17:14 | DI.CT.S_ITS ---
PROCEDURE: CT ANGIO HEAD AND NECK INDICATIONS: trouble swallowing, falls, choking, cannot swallow pills TECHNIQUE: Pre-contrast 4.5 mm thick sections acquired from the foramen magnum to the vertex. After the administration of intravenous contrast, 1 mm thick sections acquired from the aortic arch through the [place] of [place]. Post-contrast 4.5 mm thick sections then re-acquired from the foramen magnum to the vertex. 3-dimensional ojpmcau-jywmkrgia-gnybzzgkbx (MIP) and/or volume rendering reformats were acquired of the central intracranial vasculature and neck separately. For radiation dose reduction, the following was used: automated exposure control, adjustment of mA and/or kV according to patient size. COMPARISON: [facility], CR, XR CHEST 1V, 09/12/2021, 16:15. FINDINGS: Image quality: Excellent. BRAIN: CSF spaces: Ventricles are normal in size and shape. Basal cisterns are patent. No extra-axial fluid collections. Brain: No midline shift. No intracranial bleeds or masses. There is mild cerebral volume loss. There are old lacunar infarcts in right frontal white matter and basal ganglia bilaterally. Skull and face: Calvarium and facial bones appear intact, without suspicious lesions. Orbits appear normal. There is right parietal occipital scalp contusion. Sinuses: Sinuses and mastoids are clear. HEAD CT ANGIOGRAPHY: Anterior circulation: Intracranial internal carotid arteries are normal in size and flow. The flow within the paired anterior cerebral arteries is normal and symmetric. The flow within the middle cerebral arteries is normal and symmetric. The anterior communicating artery is seen. No aneurysms are seen. Posterior circulation: Visualized portions of the vertebral arteries demonstrate normal caliber, and join to form a normal appearing basilar artery. 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 Flow within the posterior cerebral arteries is normal and symmetric. No aneurysms are seen. NECK CT ANGIOGRAPHY: Carotid system: The great vessels demonstrate a conventional anatomy as they arise from the aortic arch. The origins of the common carotid arteries appear patent. The common carotid arteries demonstrate normal caliber and courses. The bifurcation regions are both widely patent. The internal carotid arteries demonstrate normal calibers and courses. Posterior circulation: The origins of the vertebral arteries both appear widely patent. The more superior extracranial portions of both vertebral arteries also demonstrate normal courses and calibers. They join to form a normal appearing basilar artery. Soft tissues: Visualized neck soft tissues demonstrate no suspicious abnormalities. Moderate emphysema. Bibasilar atelectasis. Bones: No suspicious bony lesions. Visualized cervical spine appears normally aligned. IMPRESSION: 1. No acute intracranial abnormalities. 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 2. No large vessel occlusion or high-grade stenosis in anterior or posterior circulations. 3. No large vessel occlusion or high-grade stenosis in cervical carotid arteries or vertebral arteries bilaterally. 4. Right parietal occipital scalp contusion. Any quantitative measurements of stenosis were performed using NASCET criteria. Dictated by: Maxim Maldonado M.D. on 09/12/2021 at 16:41 Approved by: Maxim Maldonado M.D. on 09/12/2021 at 16:50
[2021-09-12 17:23] LABS: Prothrombin Time 34.5 SECONDS (10.1-12.7)
--- NOTE | 2021-09-12 17:51 | DI.RAD.S_ITS ---
PROCEDURE: XR HIP W PEL IF DONE LT 2V INDICATIONS: fall with pain TECHNIQUE: 2views of the hip were acquired. COMPARISON: None. FINDINGS: Bones: No displaced fracture. Normal hip joint alignment. Moderate bilateral osteoarthritis of the hip joints. Soft tissues: There is contrast in the bladder. Lateral view is suboptimal for evaluation due to overlapping anatomy. IMPRESSION: No displaced hip fracture or pelvic ring disruption. Nondisplaced fractures can be radiographically occult and cross-sectional imaging could be obtained if there is high clinical concern. Dictated by: Del Peralta M.D. on 09/12/2021 at 18:26 Approved by: Del Peralta M.D. on 09/12/2021 at 18:28
[2021-09-12] MEDS: FUROSEMIDE 40 MG/4 ML VIAL IV (18:03)
--- NOTE | 2021-09-12 21:26 | DI.ECHO.S_ITS ---
[facility] +[facility]+ : : [address] : : : : [id number] : : : : Phone: [phone] Echocardiogram Report + + :Name: AMITA JIMENEZ Study Date: 09/13/2021 Height: 70 in : :[facility] ReadingLocation: Weight: 202 lb : : Gender: Male BSA: 2.1 m2 : :: 1935 Age: 86 yrs BP: 112/72 mmHg: :Reason For Study: Congestive Heart Failure : :Ordering Physician: XOCHILT, : :VICKI Performed By: Reed Mas : :Referring: VICKI LEMON : + + Interpretation Summary The ejection fraction is estimated to be 60-65%. Diastolic function could not be accurately assessed due to atrial fibrillation. The right ventricle is mildly dilated. The right ventricular systolic function is normal. Both atria are mildly dilated. There is moderate tricuspid regurgitation. PASP is approximately 35 to 40 mmHg. Compared to the prior study dated 08/30/2019, the right ventricle now appears mildly dilated. Procedure: A two-dimensional transthoracic echocardiogram with color flow and Doppler was performed. The study quality was technically adequate. Comparison is made with the echocardiogram of 08/30/2019. Left Ventricle: The left ventricle is normal in size and wall thickness. Left ventricular systolic function is normal. The ejection fraction is estimated to be 60-65%. There are no focal wall motion abnormalities. Diastolic function could not be accurately assessed due to atrial fibrillation. Right Ventricle: The right ventricle is mildly dilated. The right ventricular systolic function is normal. Atria: Both atria are mildly dilated. The interatrial septum grossly appears intact with no obvious evidence for an atrial septal defect. Mitral Valve: The mitral valve is normal in structure and function. There is trace mitral regurgitation. Aortic Valve: The aortic valve is trileaflet. The aortic valve is slightly calcified. There is no aortic valve stenosis. There is trace aortic regurgitation. Tricuspid Valve: The tricuspid valve is normal in structure and function. There is moderate tricuspid regurgitation. PASP is approximately 35 to 40 mmHg. Pulmonic Valve: The pulmonic valve is normal in structure and function. There is a trace or physiologic amount of pulmonic regurgitation. Great Vessels: The aortic root is normal size. The dimensions of the ascending aorta are normal. The IVC is dilated (diameter is greater than 2.1 cm) yet it collapses greater than 50% with a sniff. This suggests a right atrial pressure of 8 mm Hg. Pericardium/ Pleura There is no pericardial effusion. There is no pleural effusion. MMode/2D Measurements & Calculations LVIDd: 5.3 cm LVOT diam: 2.6 cm LVIDs: 3.8 cm Ao root diam: 3.5 cm FS: 29.5 % asc Aorta Diam: 3.2 cm IVSd: 0.98 cm LVPWd: 0.89 cm LV arias. diameter/BSA (cm/m^2): 2.6 LV sys. diameter/BSA (cm/m^2): 1.8 LA A2 area: 21.2 cm2 RA long axis: 7.3 cm LA A4 area: 29.8 cm2 RA area: 27.4 cm2 LA length (vol): 7.0 cm RA vol: 87.6 ml LA vol: 77.1 ml RA : 41.8 ml/m2 LA vol index: 36.8 ml/m2 IVC diam: 2.5 cm TAPSE: 1.9 cm Doppler Measurements & Calculations Ao V2 max: 89.7 cm/sec LVOT Max Elvis: 68.6 cm/sec Ao V2 mean: 63.0 cm/sec LV V1 max P.9 mmHg Ao max P.2 mmHg LV V1 VTI: 12.9 cm Ao mean P.7 mmHg CHET(I,D): 6.1 cm2 Ao V2 VTI: 11.2 cm CHET(V,D): 4.1 cm2 sev ratio: 1.2 CHET indexed to BSA (cm^2/m^2): 2.9 TR max elvis: 274.0 cm/sec SV(LVOT): 68.2 ml TR max P.0 mmHg Reading Physician:02:54 PM
--- NOTE | 2021-09-12 21:37 | PM.HP.1 ---
History of Present Illness History of Present Illness Date Patient Seen: 09/12/21 Time Patient Seen: 21:38 Date of Onset of Symptoms: 08/17/21 Chief complaint: Fall, difficulty swallowing x 2 weeks, on thinners Narrative: This is a very pleasant 86-year-old male who lives on [facility] with his . He has had a 2 week history of progressive symptoms. He apparently has been having difficulty sleeping for several months. He had markedly worsening lower extremity edema in and developed worsening shortness of breath. He saw his primary care provider Dr. Raheem Irby on August 25 and his furosemide was discontinued. He was placed on torsemide and was take 40 mg until he lost 10 lb and then decrease to 20 mg. He also approximately 2 and half weeks ago was started on spironolactone. This was by his extermination supervisor Dr. Vivian Acosta. Since he was started on the spironolactone he has had progressive difficulty swallowing. He has had difficulty swallowing pills and then now has had more difficulty swallowing food and even water. He went back in for follow-up to see his primary care provider on September 07 and he complained of having in significant dysphagia and it was thought that perhaps he was over diuresed because he had lost significant weight in did not have the swelling did not have the shortness of breath and so his torsemide was decreased to 20 mg. The patient's symptoms progressively worsen. He apparently fell the day before yesterday and got tangled up in his sheets and fell and hit his nose. He was attempting to take Tylenol in the middle the night when he was not able to swallow it and he started choking and he spit it out and then had with the think was a syncopal episode at about 4:00 a.m.. His awakened hearing a thud. He was alert and oriented and came to quickly. But was having increasing difficulty with swallowing and therefore they came to the ER for evaluation. He had an extensive workup in the ER which included a head CT that showed old lacunar infarcts. He had a CT angiogram of the neck which did not show any evidence of stenosis or masses CT angiogram of the head which showed no bleed. His blood work was remarkable for normal troponin but mildly elevated CK a.m. mildly elevated creatinine with a chest x-ray showing left lower lobe possible infiltrate and some pulmonary edema. He was given 40 mg of IV Lasix and has had great urinary output since then approximately 1200 cc of urine in is feeling better. He was admitted for further evaluation of his dysphagia and treatment as well of supportive care as he currently is not able to eat or swallow medications. In fact he has not taken any of his medications today. He did take his methotrexate which is once weekly injectable that he takes for his polymyalgia rheumatica. Past medical history: 1. Atrial fibrillation with chronic anticoagulation. Water Resources Engineer is Dr. Ray. His last echo was in August of 2019 he had a normal ejection fraction he had previously in June of 2019 had a pericardial effusion and pleural effusion which resolved. He had a CT scan of the chest in July of 2019 which did not show any abnormality of the esophagus. 2. Benign prostatic hypertrophy with significant urinary outflow problems 3. Polymyalgia rheumatica, he sees Dr. El and is on methotrexate injectable as well as 5 mg of prednisone daily 4. Hyperlipidemia 5. Hypertension 6. Previous history of tobacco abuse but he has quit quite some time ago 7. COPD, diagnosed in 2019 and placed on Symbicort with occasional albuterol Past surgical history 1. T and A 2. In 1999 approximately he had a exploratory laparotomy for a perforated gastric ulcer 3. Appendectomy apparently had a ruptures well Health related behavior: Patient previously smoked Patient previously used alcohol but no longer uses alcohol Patient is fairly active Social history: Patient is originally from [facility]. His is from [place]. They live on [facility] Patient History Medical History Age related cataract Ankle pain Anticoagulation goal of INR 2 to 3 Atrial fibrillation Atrial fibrillation Benign prostatic hyperplasia Chicken pox Cholelithiasis Chronic anticoagulation Chronic back pain COPD (chronic obstructive pulmonary disease) Gout Hearing loss Hemorrhoid History of gastric ulcer History of tobacco use Hyperlipidemia Hypertension [place] Obesity Osteoarthritis Pericarditis Pericarditis Polymyalgia rheumatica Tinnitus Vision disorder Surgical History Anesthesia History of ankle surgery (~1964) History of appendectomy (~2017) History of cataract removal with insertion of prosthetic lens History of laparotomy (~1999) History of tonsillectomy (~1944) Family & Social History Family History Mother Hypertension Heart disease Diabetes mellitus Hyperlipidemia Father Hypertension Hyperlipidemia Grandmother Pneumonia Social History: household members spouse,other Prior Living Arrangements House Safety & Behavioral: Feels Safe in Current Yes Environment Been Physically Hurt or No Threatened By a Person Tobacco & Substance use: Smoking Status Former smoker alcohol intake former alcohol intake frequency holiday/special occasion Substance Use Type does not use Meds Home Medications and Allergies Home Medications Medication Instructions Recorded Confirmed Type ascorbic acid (vitamin C) 500 mg 500 mg PO BID 05/04/18 09/12/21 History tablet methotrexate sodium (PF) 25 mg/mL 1 ml IM QWEEK 05/04/18 09/12/21 History injection solution multivitamin (One Daily 1 tab PO DAILY 05/04/18 09/12/21 History Multivitamin) gabapentin 100 mg capsule 100 mg PO TID 06/05/19 09/12/21 History albuterol sulfate 90 mcg/actuation 2 puff INHALATION Q4H PRN gram 11/07/20 09/12/21 History aerosol inhaler finasteride 5 mg tablet 5 mg PO DAILY #90 tab 03/31/21 09/12/21 Rx allopurinol 300 mg tablet 300 mg PO DAILY #90 tab 06/03/21 09/12/21 Rx lovastatin 40 mg tablet 40 mg PO QPM #90 tab NS 06/03/21 09/12/21 Rx metoprolol succinate 100 mg 100 mg PO DAILY #90 tab 06/03/21 09/12/21 Rx tablet,extended release 24 hr tamsulosin 0.4 mg capsule (Flomax) 0.8 mg PO QPM #180 cap 06/03/21 09/12/21 Rx warfarin 2.5 mg tablet (Jantoven) 2.5 mg PO DAILY #90 tab 06/03/21 09/12/21 Rx acetaminophen 500 mg tablet 1,000 mg PO TID PRN tab 08/25/21 09/12/21 History (Tylenol Extra Strength) amlodipine 10 mg tablet 10 mg PO DAILY 08/25/21 09/12/21 History losartan 100 mg tablet 100 mg PO DAILY 08/25/21 09/12/21 History magnesium chloride 64 mg PO DAILY tab 08/25/21 09/12/21 History spironolactone 25 mg tablet 25 mg PO DAILY 08/25/21 09/12/21 History torsemide 20 mg tablet 20 mg PO DAILY #90 tab 08/25/21 09/12/21 Rx budesonide-formoterol HFA 80 2 puff INHALATION BID #3 unit 09/02/21 09/12/21 Rx mcg-4.5 mcg/actuation aerosol inhaler (Symbicort) furosemide 20 mg tablet 20 mg PO DAILY 09/12/21 09/12/21 History prednisone 5 mg tablet 5 mg PO BEDTIME 09/12/21 09/12/21 History Allergies Allergy/AdvReac Type Severity Reaction Status Date / Time latex [LATEX] Allergy Mild Rash Verified 09/12/21 16:06 Review of Systems Review of Systems Narrative: Patient denies any significant bleeding. Patient denies any headache or mental confusion after falling Patient is hard of hearing and uses hearing aids Patient denies fever, chills Patient denies current lower extremity edema Patient denies myalgias Patient has had soreness in his upper shoulders. Denies any urinary symptoms other than difficulty urinating Denies any abdominal pain, hematemesis, GERD, change in bowel movements, bright red blood per rectum or black tarry stools Exam Vital Signs (past 8 hours): - 09/12/21 16:03 09/12/21 16:05 09/12/21 16:25 Temperature 98.8 F Pulse Rate 102 H 101 H 109 H Respiratory Rate 24 18 Blood Pressure 114/65 114/65 Pulse Oximetry 93 95 98 09/12/21 16:30 09/12/21 17:18 09/12/21 17:30 Temperature Pulse Rate 100 H 105 H 102 H Respiratory Rate 23 22 21 Blood Pressure Pulse Oximetry 95 95 09/12/21 18:00 09/12/21 19:00 09/12/21 19:30 Temperature Pulse Rate 99 H 108 H 112 H Respiratory Rate 27 H 19 28 H Blood Pressure Pulse Oximetry 92 94 93 09/12/21 19:54 09/12/21 20:10 Temperature 98.8 F Pulse Rate 120 H 104 H Respiratory Rate 24 20 Blood Pressure 124/71 103/58 L Pulse Oximetry 94 96 Oxygen Delivery Method Room Air Narrative Exam Narrative: Patient is alert and oriented no apparent distress. He is afebrile and vital signs are stable. He is quite talkative and provides excellent history. His feels in details. He is intermittently coughing and choking and having some difficulty with swallowing saliva. He is feeling much better than he did when he got to the ER Head is normocephalic atraumatic Eyes pupils equal round reactive to light, extraocular muscles intact Ears unremarkable Oropharynx shows no abnormalities no swelling no lesions no uvula swelling does have some postnasal drip No shows abrasion some swelling at the bridge of the nose from fall Neck: Supple without adenopathy or thyromegaly or bruit Chest: Clear to auscultation with no wheezes rhonchi or crackles but coarse upper airway sounds Cor: Irregularly irregular rhythm with a well controlled rate Abdomen: Positive bowel sounds, soft, no guarding, no rebound. He has a well-healed midline incision with no evidence of hernia but it does feel that the anterior aspect prep sirs mesh Extremities trace pitting edema lower extremities. Patient has bruising over the left patella and some swelling superior to the patella Skin shows superficial skin tears on his right forearm, abrasions on his nose Objective Labs Result Diagrams: 09/12/21 16:09 09/12/21 16:09 Labs: Laboratory Results - last 24 hr 09/12/21 09/12/21 09/12/21 16:09 16:09 16:09 WBC 10.8 RBC 4.22 L Hgb 14.1 Hct 41.3 MCV 97.7 MCH 33.3 MCHC 34.1 RDW 16.7 H Plt Count 207 Neut % (Auto) 83.1 H Lymph % (Auto) 4.9 L [place] % (Auto) 10.1 Eos % (Auto) 1.2 L Baso % (Auto) 0.7 Neut # (Auto) 9000 H Lymph # (Auto) 500 L [place] # (Auto) 1100 H Eos # (Auto) 100 Baso # (Auto) 100 ESR 19 H PT INR Sodium 135 L Potassium 5.1 Chloride 102 Carbon Dioxide 24 BUN 22 H Creatinine 1.10 Estimated GFR > 60 BUN/Creatinine Ratio 20.0 Glucose 129 H Calcium 9.0 Magnesium Total Bilirubin 1.8 H AST 35 ALT 22 Alkaline Phosphatase 61 Total Creatine Kinase CK-MB (CK-2) CK-MB (CK-2) Rel Index Troponin I NT-Pro-B Natriuret Pep Total Protein 7.2 Albumin 4.3 Globulin 2.9 Albumin/Globulin Ratio 1.5 Lipase SARS-CoV-2 (PCR) 09/12/21 09/12/21 09/12/21 16:09 16:09 16:10 WBC RBC Hgb Hct MCV MCH MCHC RDW Plt Count Neut % (Auto) Lymph % (Auto) Pra[place] % (Auto) Eos % (Auto) Baso % (Auto) Neut # (Auto) Lymph # (Auto) [place] # (Auto) Eos # (Auto) Baso # (Auto) ESR PT 34.5 H INR 3.0 H Sodium Potassium Chloride Carbon Dioxide BUN Creatinine Estimated GFR BUN/Creatinine Ratio Glucose Calcium Magnesium 2.4 H Total Bilirubin AST ALT Alkaline Phosphatase Total Creatine Kinase 175 H CK-MB (CK-2) 2.89 H CK-MB (CK-2) Rel Index 1.7 Troponin I < 0.012 NT-Pro-B Natriuret Pep 1790 H Total Protein Albumin Globulin Albumin/Globulin Ratio Lipase 67 SARS-CoV-2 (PCR) Negative Assessment & Plan Assessment & Plan narrative: 70 minutes spent with the patient and reviewing his chart and discussing with the ER physician, nursing in meeting with patient and his , documenting in formulating a plan 86-year-old male admitted for acute on chronic systolic heart failure exacerbation with progressive dysphagia and recent syncopal episode Assessment 1. Acute on chronic systolic heart failure likely related to inability to keep his meds down and some dietary indiscretions which contributed to fluid overload. Plan: Will repeat troponin in a.m.. Will do echo. Will monitor fluid status with BNP as well as clinically. He has had excellent output with just 40 mg of IV Lasix. Will check daily weights and I's and O's Assessment 2. Atrial fibrillation with chronic anticoagulation with slightly elevated rate at this time, RVR Plan: Will provide IV metoprolol as needed. His INR was 3. We will check daily INRs and will hold tonight. Assessment 3. Progressive dysphagia of unclear etiology concerning for possible central lesion versus less likely but possibly related to spironolactone Plan: Will hold spironolactone. Will do MRI in a.m.. Will do a bedside swallow tonight and may let him have sips of water and tea if he does well. Will do a speech therapy swallow eval tomorrow. Will monitor secretions with suction. This does not seem to be a mechanical GI abnormality. Could be dysmotility of the esophagus is a side effect of the spironolactone. We will do a see the cholinesterase antibodies to rule out myasthenia gravis Assessment 4. Syncopal episode related to choking on pill Plan: Will rule out acute [place]. Will recheck echo in the morning. Will continue to monitor. Will monitor for any cognitive affects from fall. Assessment 5. Knee pain related to fall with bruising but negative x-ray although there is a joint effusion Plan: Will work with physical therapy. Will treat pain and will continue to monitor Assessment 6. Polymyalgia rheumatica on methotrexate and he had his methotrexate today Plan: Will hold oral medications right now and to we can tell how he is able to swallow and we will provide IV Solu-Medrol overnight. Will do slight stress dosing Assessment 7. COPD with history of tobacco abuse no current symptoms Plan: Will place him on his Symbicort as outpatient and will consult RT and provide albuterol as needed Assessment 8. Hypertension at this point normotensive Plan: Will provide IV metoprolol overnight if needed and hopefully swallowing will be evaluated tomorrow we can start his oral medications at that time Assessment 9. BPH Plan: Hopefully will be able to start his oral medications tomorrow Code status He has a pulsed on form and prefers a modified code where he would only want intubation if needed Time Spent With Patient Critical Care time: I spent a total of [] minutes of critical care time on this patient's care today; this time is exclusive of procedural time. Quality VTE Deep Vein Thrombosis/Pulmonary Embolism Present on Admission: No
[2021-09-12] MEDS: methylPREDNISolone 125 MG/2 ML VIAL 60 MG IV (22:03)
[2021-09-12] MEDS: SODIUM CHLORIDE 0.45% 1,000 ML 75 ML IV (22:04)
[2021-09-13] VITALS (13 sets, daily range): BP systolic 93–151; BP diastolic 53–72; PULSE 55–121; RESP 16–21; TEMP 36.1–37.2; O2SAT 92–97
--- NOTE | 2021-09-13 05:26 | DI.MRI.S_ITS ---
PROCEDURE: MR HEAD/BRAIN WO/W CON INDICATIONS: Dysphagia TECHNIQUE: Noncontrast axial T1 spin echo, axial T2 fast spin echo, sagittal and axial FLAIR, coronal T2 fast spin echo, axial gradient echo, axial diffusion and ADC through the brain. After the administration of contrast, axial and coronal T1 spin echo with fat saturation through the brain. COMPARISON: [facility], CT, CT ANGIO HEAD AND NECK, 09/12/2021, 16:42. FINDINGS: Image quality: Excellent. CSF spaces: Basal cisterns are patent. No extra-axial fluid collections. Ventricles are normal in size and shape. Brain: There are small foci of restricted diffusion in the right frontal lobe and parietal lobe, compatible with acute or subacute lacunar infarcts. Old lacunar infarcts or dilated perivascular space are noted basal ganglia bilaterally. No midline shift. No intracranial bleeds or masses. No abnormal intracranial enhancement. There is mild cerebral volume loss. There are moderate periventricular white matter chronic small vessel ischemic changes. The brainstem appears normal. Diffusion-weighted images demonstrate no acute ischemic insults. No chronic ischemic insults. Normal intravascular flow voids are present. Skull and face: Calvarial marrow is normal in signal. Orbits appear normal. Sinuses: Sinuses and mastoids appear clear. IMPRESSION: 1. Small foci of acute or subacute infarcts in the frontal and parietal lobes. 2. Cerebral volume loss and chronic microvascular ischemic changes. Dictated by: Maxim Maldonado M.D. on 09/13/2021 at 10:39 Approved by: Maxim Maldonado M.D. on 09/13/2021 at 10:48
[2021-09-13 06:11] LABS: Add Manual Diff / Slide Review NO; Basophils Absolute Auto 0 /uL (0-100); Basophils Percent Auto 0.1 % (0-2); Eosinophils Absolute Auto 0 /uL (0-450); Hematocrit 42.8 % (41-53); Hemoglobin 14.5 g/dL (13.5-17.5); Lymphocytes Absolute Auto 300 /uL (1100-4500); Lymphocytes Percent Auto 2.8 % (25-40); Mean Corpuscular HGB Conc 33.9 % (30-36); Mean Corpuscular Hemoglobin 33.1 PG (26-34); Mean Corpuscular Volume 97.6 fL (80-100); Monocytes Absolute Auto 100 /uL (0-900); Monocytes Percent Auto 1.2 % (3-14); Neutrophils Absolute Auto 8500 /uL (1500-7000); Neutrophils Percent Auto 95.9 % (50-75); Platelet Count 205 X10^3/uL (150-400); Red Blood Cell Count 4.38 X10^6/uL (4.5-5.9); Red Cell Distribution Width 17.1 % (11.6-14.8); White Blood Cell Count 8.9 X10^3/uL (4.5-11.0)
[2021-09-13 06:24] LABS: Alanine Aminotransferase 23 IU/L (<50); Albumin 4.4 g/dL (3.5-5.0); Albumin Globulin Ratio 1.6 (1.0-2.8); Alkaline Phosphatase 61 U/L (38-126); Aspartate Aminotransferase 33 IU/L (17-59); BUN Creatinine Ratio 20.9 (6-22); Bilirubin Total 1.8 mg/dL (0.2-1.3); Blood Urea Nitrogen 27 mg/dL (9-20); Carbon Dioxide 25 mmol/L (22-32); Chloride 100 mmol/L (98-107); Creatine Kinase 175 U/L (55-170); Estimated Glomerular Filt Rate 55 mL/min (>60); Globulin 2.8 g/dL (1.7-4.1); Glucose 205 mg/dL (80-110); HEMOLYSIS < 15 (0-50); Magnesium 2.2 mg/dL (1.6-2.3); Potassium 5.1 mmol/L (3.4-5.1); Sodium 134 mmol/L (137-145); Total Protein 7.2 g/dL (6.3-8.2)
[2021-09-13 06:29] LABS: C-Reactive Protein Quant 8.2 mg/dL (<1.0)
[2021-09-13 06:31] LABS: INR 2.7 (0.9-1.3); Prothrombin Time 31.4 SECONDS (10.1-12.7)
[2021-09-13 06:32] LABS: NT-proBNP (BNP-Adult 18+) 3010 pg/mL (<450)
[2021-09-13 06:35] LABS: Erythrocyte Sedimentation Rate 21 MM/HR (0-15); Troponin I < 0.012 ng/mL (0.01-0.034)
[2021-09-13 06:39] LABS: CKMB % Relative Index 1.5 % (1.5-5.0); Creatine Kinase MB 2.71 ng/mL (<2.37)
[2021-09-13] MEDS: HYDROCORTISONE 100 MG/2 ML VIAL 50 MG IV (09:31)
[2021-09-13] MEDS: BUDESONIDE 0.5 MG/2 ML NEB INH ×2 (10:17→20:18)
[2021-09-13] MEDS: METOPROLOL TARTRATE 5 MG/5 ML INJ IV (13:21)
--- NOTE | 2021-09-13 13:46 | CM.DANOTE ---
Patient is an 86 yo male who was admitted on 09/12/21 for Difficulty swallowing/Fall. Pt has [facility] for insurance and his PCP is Dr. Michelet Irby at [facility]. EMR was reviewed. Per MD, pt with hx of edema, cardiology, SOB and GLF and admitted for chronic systolic heart failure and to have Echo and trops and AFIB and to have an MRI. ST/PT ordered and pending. Pt has been NPO due to his dysphagia but ST not available today (Sun) and pt changed to pureed diet and to be monitored. Pt was last admitted to [facility] in Jun 2019 two years ago and was able to safely d/c home with spouse and no needs. bedside with pt and spouse and awaiting ST eval and Modified Barium Swallow and pt not stable for d/c home today. Plan: SW to follow for bedside assessment with pt and spouse once PT eval completed towards determining any d/c planning needs and ST eval and barium swallow tomorrow with ST available. STELLA Guajardo Discharge Planning/Care Management CM Discharge Assessment Start: 09/13/21 13:34 Freq: Status: Active Protocol: Document 09/13/21 13:35 BF (Rec: 09/13/21 13:45 BF [id number]) Discharge Planning Assessment Assigned Compress Engineer STELLA Tyler DPOA/Assigned Designee Name spouse Fareed Contact Information [phone] Advance Directives? Yes Advance Directives on File Yes History Provided By Patient,Significant Other, Medical Record Has Patient been admitted in last 30 No days? Comment Last admitted in Jun 2019 and discharged home with spouse Prior Living Arrangements House Household Members spouse Type of transporation used prior to Drives own vehicle admit Independent with ADL's Yes Is patient alert and oriented? Yes Caregiver for Another No Comment functionally independent with occ use of cane Comment Pending PT and ST eval and recommendations Barriers to Discharge No Discharge Plan Home with Home Health Transportation Arrangement Spouse is bedside and pending d/c plan can transport back home to [facility] Additional Comment Pending PT eval and recommendations Whiteboard Updated in Patient Room with Yes name and ext. # of Compress Engineer Review Status In Process Please Provide Date Initial DC 09/13/21 Assessment Was Performed Next Review Type Continued Stay Review
--- NOTE | 2021-09-13 14:18 | PT.IIE ---
Surgical History (Last Reviewed 09/12/21 @ 16:41 by Jai Jaimes DO) Anesthesia Medical History (Last Reviewed 09/12/21 @ 21:46 by Paulina Eugene MD) Age related cataract Ankle pain Anticoagulation goal of INR 2 to 3 Atrial fibrillation Atrial fibrillation Benign prostatic hyperplasia Chicken pox Cholelithiasis Chronic anticoagulation Chronic back pain COPD (chronic obstructive pulmonary disease) Gout Hearing loss Hemorrhoid History of gastric ulcer History of tobacco use Hyperlipidemia Hypertension Measles Mumps Obesity Osteoarthritis Pericarditis Pericarditis Polymyalgia rheumatica Tinnitus Vision disorder Physical Therapy Inpatient Evaluation/Re-Eval M1 PT/OT-IP Prior Functional Status Start: 09/13/21 08:13 Freq: NEEDED Status: Active Protocol: Document 09/13/21 14:18 AW (Rec: 09/13/21 15:16 AW [id number]) Medical Review Prior Functional Status Medical History Reviewed Yes Communication WNL. Pt speaks with a hoarse voice which he states is nearly baseline for him. At this encounter, he is coughing frequently but not with oral intake. Mobility and Gait Pt is independently mobile but reports decreasing stamina over the past 2-3 years. He uses a cane for longer distances - mostly to conserve energy. Pt reports two recent falls. Activities of Daily Living and IADL's Pt has been needing increased assist with dressing and showering tasks due to strength and energy deficits. Social History Household Members spouse Living Arrangements House Number of Floors (Floors) One Floor Number of Stairs To Enter/Railing? 3 [place] at garage with R rail ascending. Alternatively, there is a ramp but pt does not believe it is ADA compliant in terms of slope. 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 He lives on [address] with his , Fareed, who is home real time operator and provides assist as needed. He does have suction cup grab bars in the shower. M2 PT-IP Current Condition Start: 09/13/21 08:13 Freq: NEEDED Status: Active Protocol: Document 09/13/21 14:18 AW (Rec: 09/13/21 15:16 AW [id number]) Physical Therapy Current Condition Current Condition Evaluation Date 09/13/21 Treatment Diagnosis CHF exacerbation, acute CVA; impaired strength and gait Onset Date 09/11/21 M3 PT-IP Subjective Start: 09/13/21 08:13 Freq: NEEDED Status: Active Protocol: Document 09/13/21 14:18 AW (Rec: 09/13/21 15:16 AW [id number]) Subjective Physical Therapy Visit Type Type Initial Evaluation Visit Start Time 13:43 Visit Stop Time 14:18 Total Visit Minutes 35 Notes Pt's spouse was present throughout evaluation Number of ARTIST COLOR SEPARATION Visits 0 Physical Therapy Visit Comments Patient Comments Pt is willing to participate with PT Patient Goals Improve energy and stamina Therapy Pain Assessment Pain When Pain Assessed During Weight Bearing Pain Present Pain Present Pain Reported Location left leg Scale Used not quantified Description Aching,Tender,Throbbing Pain Behaviors Wincing Pain Management Techniques Modification of Treatment,Re- positioning M4 PT-IP Mobility and Gait Start: 09/13/21 08:13 Freq: NEEDED Status: Active Protocol: Document 09/13/21 14:18 AW (Rec: 09/13/21 15:35 AW [id number]) PT-Bed Mobility Assessment Supine to Sit Supine to Sit Standby Assistance Scooting Scooting to Edge of Bed Standby Assistance PT-Transfer Assessment Sit to and From Stand Sit to and from Stand Contact Guard Assistance,1 Person Assistance,Use of Upper Extremities Equipment Transfer Assistive Device None,Gait Belt,Front Wheeled Walker Orthotic/Prosthetic Devices or Brace: No Transfers Transfer Destination Chair Transfer Technique pt ambulated w/ and w/o FWW Transfer Ability Level of Assist Contact Guard Assistance,Use of Upper Extremities Comments Mobility Comments Resting BP 122/59 HR 88 SpO2 93% RA. Pt suctioned his own secretions prior to mobility. He completed supine to sit SBA and stood CGA without FWW initially. He walked in the room with unsteadiness requiring min A before transferring to the chair. He stood and used FWW to ambulate 40 feet to the stairs at [facility] department. He descended and ascended three steps with increased work of breathing/SOB. During standing rest break, pt complained briefly of lightheadedness which cleared within a minute. Pt returned to the room with FWW CGA and transferred to the chair. BP 102/63 HR 111 SpO2 96% RA. Pt was left with the call light and tray table in reach. His spouse remained in the room. Gait Assessment Gait Gait Assistance Required: Contact Guard Assist Distance (Feet) 80 Assistive Devices Assistive Device None,Gait Belt,Front Wheeled Walker Orthotic/Prosthetic Devices or Brace: No Gait Deviations General Gait Pattern Antalgic,Decreased Stride Length,Decreased Feet Clearance,Step-to Gait Factors Limiting Gait Function Factors Limiting Gait Function Decreased Strength,Pain,Poor Balance,Respiratory Distress Comments Gait Comments Pt presents with LLE pain and moderate unsteadiness affecting gait. See mobility comments for details. Pt was clearly steadier with FWW and agreed with PT's recommendation to use FWW in the short term. Stair Climbing Assessment Evaluation Level of Assist On Stairs Contact Guard Assistance, Minimal Assistance,1 Person Assistance Devices Stair Climbing Assistive Devices Right Railing Technique/Endurance Stair Climbing Direction Ascend and Descend Stair Climbing Technique Step Over Step,Step to Step Number of Steps Climbed 3 Query Text: Stair Climbing Set # Repetitions (reps) 1 Comments Stair Climbing Comments Step-to pattern to descend. Step over step ascending with heavy BUE reliance on rail to pull up. PT-Balance Assessment Sitting Balance and Reactions Static Sitting Balance Ability Normal Dynamic Sitting Balance Ability Good Standing Balance and Reactions Static Standing Balance Ability Fair Dynamic Standing Balance Ability Fair Device Used FWW M5 PT-IP Objective Assessments Start: 09/13/21 08:13 Freq: NEEDED Status: Active Protocol: Document 09/13/21 14:18 AW (Rec: 09/13/21 15:35 AW [id number]) Orientation Orientation/Cognition Level of Alertness Alert Orientation Name,Day of Week,Place, Situation Language Function Ability No Deficits Noted Safety Awareness Understands Safety Issues Gross Range of Motion Upper Extremity ROM Assessment Within Functional Limits Lower Extremity ROM Assessment Within Functional Limits Strength Upper Extremity Strength Assessment Within Functional Limits Lower Extremity Strength Assessment Left Impaired Hip 4-/5 Knee 3+/5 limited by pain Ankle 4+/5 Comments Strength Comments RLE grossly 4+/5 Coordination Assessment Assessment Finger to Nose Test Minimal Impairment Foot Tapping Test Normal Performance Coordination Comments Pt missed targets on finger to nose by ~1 cm with LUE. Sensation Assessment Sensation Gross Sensation WNL Comments Sensation Comments Pt denies sensation disturbance. Muscle Tone Muscle Tone WNL Yes Other Assessments Other Other Assessments Oculomotor and vestibular screenings were grossly normal . M6 PT-IP Treatment Start: 09/13/21 08:13 Freq: NEEDED Status: Active Protocol: Document 09/13/21 14:18 AW (Rec: 09/13/21 15:35 AW [id number]) Physical Therapy Treatment Education Education Provided Safety Other Treatments Other Treatment Performed Educated pt and spouse on recommendation for FWW at this time and possible referral to outpatient PT to improve strength and balance. M7 PT-IP Assessment and Plan Start: 09/13/21 08:13 Freq: NEEDED Status: Active Protocol: Document 09/13/21 14:18 AW (Rec: 09/13/21 15:35 AW [id number]) PT Summary Assessment and Plan Potential Rehabilitation Potential Good Status of Condition at Evaluation Evolving Summary Impairments Pain,Strength,Balance, Transfers,Gait,Activity Tolerance Assessment Summary Matthew is an 86 yo man admitted with CHF exacerbation and complaints of dysphagia and reduced stamina. Brain MRI reveals small foci of acute vs subacute right frontal and parietal lobe infarcts. On assessment, pt complains of LLE pain following a fall at home. His coordination with LUE appears mildly impaired. His vital signs were stable other than increased respiratory rate and work of breathing with 40 feet gait and climbing three steps. Pt would benefit from the use of an assistive device such as FWW at this time. Referral to outpatient PT is appropriate to improve strength, gait, balance, and activity tolerance. Goals Bed Mobility Goal Independent Transfer Goal Independent,Front Wheeled Walker Gait Goal Independent,Front Wheel Walker Gait Distance 150 Other Goals - up/down three steps with R rail ascending SBA Days to Meet Goals 5 Frequency of Treatment Frequency Of Treatment Once a Day Treatment Plan Physical Therapy Treatment Plan Bed Mobility Training,Transfer Training,Gait Training, Therapeutic Exercise,Balance Retraining,Discharge Planning, Hot or Cold Pack,Neuromuscular Re-ed,Coordination Retraining Other Recommendations and Next Treatment education for energy Focus conservation techniques; continue gait training with FWW; return to stairs? Precautions Other Precautions falls Recommendations To Nursing Amount of Assist Needed 1 Person Assist Discharge Recommendations PT Discharge Recommendations Home with Assistance, Outpatient PT Transportation Needs at Discharge Private Vehicle
[2021-09-13] MEDS: TAMSULOSIN 0.4 MG CAPSULE 0.8 MG PO (16:35)
[2021-09-13] MEDS: WARFARIN 5 MG TABLET 2.5 MG PO (16:35)
[2021-09-13] MEDS: SODIUM CHLORIDE 0.9% 1,000 ML 1000 ML IV (16:42)
--- NOTE | 2021-09-13 18:11 | P.PN_ITS ---
Subjective Subjective Date Patient Seen: 09/13/21 Interval history: 86-year-old male with history of atrial fibrillation, on chronic warfarin anticoagulation, CHF, PMR on low-dose prednisone, COPD presented with symptoms of progressive hoarseness and trouble swallowing. Symptoms present for months but last 2 weeks he has had a lot of difficulty swallowing. He had choking episode while attempting to get fluids down causing brief episode of syncope where he hit his head, shoulder and knee. Patient did drop his blood pressure to around 80 systolic this afternoon and may be a little volume depleted but had not gotten routine medications other than his metoprolol. Gave 1 L NS bolus and started maintenance NS. Holding his antihypertensives and diuretics. Brain MRI showed small foci of acute or subacute infarcts in the frontal and parietal lobes. Exam Vital Signs (past 8 hours): - 09/13/21 10:17 09/13/21 11:30 09/13/21 11:33 Temperature 97.8 F Pulse Rate 67 120 H Respiratory Rate 16 19 Blood Pressure 99/62 Pulse Oximetry 94 95 09/13/21 13:11 09/13/21 13:56 09/13/21 15:10 Temperature 97.4 F L Pulse Rate 111 H 88 74 Respiratory Rate 18 Blood Pressure 109/62 122/59 L 93/56 L Pulse Oximetry 92 95 09/13/21 15:41 Temperature Pulse Rate Respiratory Rate Blood Pressure 95/53 L Pulse Oximetry Oxygen Delivery Method Room Air Narrative Exam Narrative: General: Very pleasant male with a hoarse voice Lungs: Clear Heart: Irregularly irregular Abdomen: Soft Extremities: No edema Neurological: Patient has significant hoarse voice, no facial droop, no unilateral weakness Objective Labs Result Diagrams: 09/13/21 05:45 09/13/21 05:45 Labs: Laboratory Results - last 24 hr 09/13/21 09/13/21 09/13/21 05:45 05:45 05:45 WBC 8.9 RBC 4.38 L Hgb 14.5 Hct 42.8 MCV 97.6 MCH 33.1 MCHC 33.9 RDW 17.1 H Plt Count 205 Neut % (Auto) 95.9 H Lymph % (Auto) 2.8 L Meriwether % (Auto) 1.2 L Eos % (Auto) 0.0 L Baso % (Auto) 0.1 Neut # (Auto) 8500 H Lymph # (Auto) 300 L Meriwether # (Auto) 100 Eos # (Auto) 0 Baso # (Auto) 0 ESR 21 H PT INR Sodium Potassium Chloride Carbon Dioxide BUN Creatinine Estimated GFR BUN/Creatinine Ratio Glucose Calcium Magnesium Total Bilirubin AST ALT Alkaline Phosphatase Total Creatine Kinase CK-MB (CK-2) CK-MB (CK-2) Rel Index Troponin I C-Reactive Protein 8.2 H NT-Pro-B Natriuret Pep Total Protein Albumin Globulin Albumin/Globulin Ratio 09/13/21 09/13/21 09/13/21 05:45 05:45 06:05 WBC RBC Hgb Hct MCV MCH MCHC RDW Plt Count Neut % (Auto) Lymph % (Auto) Meriwether % (Auto) Eos % (Auto) Baso % (Auto) Neut # (Auto) Lymph # (Auto) Meriwether # (Auto) Eos # (Auto) Baso # (Auto) ESR PT 31.4 H INR 2.7 H Sodium 134 L Potassium 5.1 Chloride 100 Carbon Dioxide 25 BUN 27 H Creatinine 1.29 H Estimated GFR 55 L BUN/Creatinine Ratio 20.9 Glucose 205 H Calcium 9.0 Magnesium 2.2 Total Bilirubin 1.8 H AST 33 ALT 23 Alkaline Phosphatase 61 Total Creatine Kinase 175 H CK-MB (CK-2) 2.71 H CK-MB (CK-2) Rel Index 1.5 Troponin I < 0.012 C-Reactive Protein NT-Pro-B Natriuret Pep 3010 H Total Protein 7.2 Albumin 4.4 Globulin 2.8 Albumin/Globulin Ratio 1.6 [facility] Medical History Age related cataract Ankle pain Anticoagulation goal of INR 2 to 3 Atrial fibrillation Atrial fibrillation Benign prostatic hyperplasia Chicken pox Cholelithiasis Chronic anticoagulation Chronic back pain COPD (chronic obstructive pulmonary disease) Gout Hearing loss Hemorrhoid History of gastric ulcer History of tobacco use Hyperlipidemia Hypertension Measles Mumps Obesity Osteoarthritis Pericarditis Pericarditis Polymyalgia rheumatica Tinnitus Vision disorder Surgical History Anesthesia History of ankle surgery (~1965) History of appendectomy (~2018) History of cataract removal with insertion of prosthetic lens History of laparotomy (~2000) History of tonsillectomy (~1944) Family History Mother Hypertension Heart disease Diabetes mellitus Hyperlipidemia Father Hypertension Hyperlipidemia Grandmother Pneumonia Social History marital status: household members: spouse occupational status: previously employed Smoking Status: Former smoker alcohol intake: former substance use type: does not use Assessment & Plan Assessment & Plan narrative: 86-year-old male with history of atrial fibrillation, on chronic antico agulation, CHF, PMR on low-dose prednisone, COPD presented with symptoms of progressive hoarseness and trouble swallowing. Symptoms present for months but last 2 weeks he has had a lot of difficulty swallowing. Syncope at home and hit is head. 1. 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 started due to his past history of complicated ulcer disease -support BP with IV fluids -MBS with speech therapy -PT/OT 2. Syncopal episode secondary to choking on fluids or pill -echo with normal LV function -telemetry 3. Progressive dysphagia -presumably due to recent strokes -currently on honey thick with pureed food -ST eval 4. Atrial fibrillation with RVR -continue metoprolol XR 100 mg q.d. -continue warfarin -closely monitor INR 5. Chronic diastolic heart failure, on warfarin anticoagulation -he put out 2 L after IV Lasix -doubt exacerbation with current echo findings -hold losartan, torsemide and spironolactone for now -patient does note he was recently taken off of furosemide and put on torsemide and lost a bunch of fluid weight in a short period of time, told to take between 10-20 mg torsemide daily based on weight 6. COPD -continue inhaler regimen 7. Shoulder and knee contusions -no fracture, work with PT 8. Polymyalgia rheumatica -continue prednisone 5 mg q.d. at bedtime per home routine Time Spent With Patient Critical Care time: I spent a total of [] minutes of critical care time on this patient's care today; this time is exclusive of procedural time. Quality VTE Deep Vein Thrombosis/Pulmonary Embolism Present on Admission: No
--- NOTE | 2021-09-13 19:49 | PC.NURSE ---
After administration of IV metoprolol in early afternoon, pt's BP noted to have dropped to SBP 80s/90s. Dr. Lehman informed, 1L NS fluid bolus ordered. BP post bolus 111/67. Will continue to monitor.
[2021-09-13] MEDS: GABAPENTIN 100 MG CAPSULE PO (20:37)
[2021-09-13] MEDS: ATORVASTATIN 20 MG TABLET 10 MG PO (20:37)
[2021-09-13] MEDS: predniSONE 5 MG TABLET PO (20:37)
[2021-09-14] VITALS (9 sets, daily range): BP systolic 103–133; BP diastolic 61–74; PULSE 79–115; RESP 18–20; TEMP 36.3–36.8; O2SAT 95–99
--- NOTE | 2021-09-14 | DI.RAD.S_ITS ---
PROCEDURE: FL BARIUM SWALLOW W SPEECH INDICATIONS: dysphagia COMPARISON: None. TECHNIQUE: Examination was conducted in conjunction with speech pathology per standard protocol. In the lateral projection, filming was performed of the patient swallowing. AP projection filming may also be performed with patient swallowing. COMPARISON: FINDINGS: Function: The oral preparatory phase appears normal, with proper containment. The subsequent oral propulsive phase, pharyngeal phase, and esophageal phase of swallowing predominantly appear normal with all proffered substances. However, tertiary contractions were seen after administration of the barium tablet. Laryngotracheal penetration is seen with nectar and thin liquid consistencies. Vallecular vallecular pooling is also noted. Morphology: No cervical esophageal webs. No Zenker's diverticulum. The barium tablet remains at the gastroesophageal junction despite water, raising concern for structure or achalasia. IMPRESSION: Abnormal barium swallow as detailed above. Please refer to the dedicated speech therapist's report. Dictated by: Rashaun Daily M.D. on 09/14/2021 at 10:21 Approved by: Rashaun Daily M.D. on 09/14/2021 at 10:24
--- NOTE | 2021-09-14 04:52 | PC.NURSE ---
Shift Note: Patient was alert and oriented, follows commands, denies any pain/discomfort, not in cardiorespiratory distress, vital signs are within acceptable limits. Patient tolerated swallowing pills with apple sauce, strict aspiration precautions maintained. Patient safety precautions observed throughout the shift. Will continue to monitor.
[2021-09-14] MEDS: BUDESONIDE 0.5 MG/2 ML NEB INH ×2 (08:05→19:44)
[2021-09-14] MEDS: METOPROLOL ER 50 MG TABLET 100 MG PO (08:51)
[2021-09-14] MEDS: ASPIRIN EC 81 MG TABLET PO (10:31)
[2021-09-14] MEDS: allopurinoL 300 MG TABLET PO (10:31)
--- NOTE | 2021-09-14 11:29 | PC.NURSE ---
Assess- Patient down to [facility]. He tolerated this well. Heart rate was up in the 130s, gave patient his metoprolol and is now down in the 90s to low 100s. He is resting comfortably and visiting with his . No needs at this time.
--- NOTE | 2021-09-14 11:43 | PT.IPTN ---
Current Diagnoses Cerebral infarction, unspecified (09/12/21) Physical Therapy Treatment Note M2 PT-IP Current Condition Start: 09/13/21 08:13 Freq: NEEDED Status: Active Protocol: Document 09/14/21 11:16 SP (Rec: 09/14/21 16:26 SP [id number]) Physical Therapy Current Condition Current Condition Evaluation Date 09/13/21 Treatment Diagnosis CHF exacerbation, acute CVA; impaired strength and gait Onset Date 09/11/21 M3 PT-IP Subjective Start: 09/13/21 08:13 Freq: NEEDED Status: Active Protocol: Document 09/14/21 11:16 SP (Rec: 09/14/21 16:26 SP [id number]) Subjective Physical Therapy Visit Type Type Treatment Note Visit Start Time 11:16 Visit Stop Time 11:43 Total Visit Minutes 27 Notes Fareed completed caregiver training with pt including donning gait belt, providing CGA required throughout tx. 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 M4 PT-IP Mobility and Gait Start: 09/13/21 08:13 Freq: NEEDED Status: Active Protocol: Document 09/14/21 11:16 SP (Rec: 09/14/21 16:26 SP [id number]) PT-Bed Mobility Assessment Supine to Sit Supine to Sit Standby Assistance Scooting Scooting to Edge of Bed Standby Assistance PT-Transfer Assessment Sit to and From Stand Sit to and from Stand Standby Assistance,Contact Guard Assistance,Use of Upper Extremities Equipment Transfer Assistive Device None,Gait Belt,Front Wheeled Walker Orthotic/Prosthetic Devices or Brace: No Transfers Transfer Destination Chair Transfer Technique pt ambulated w/o and w/ FWW Transfer Ability Level of Assist Contact Guard Assistance, Minimal Assistance,1 Person Assistance,Use of Upper Extremities Comments Mobility Comments Stable vitals throughout tx. Supine>sit SBA. Sit>stand CGA w/o AD little trunk sway, provided FWW for stability SBA . Gait around room 30 ft CGA trunk sway and LOB to L scissor step when turned head to look to L required Min A recovery, stood 20 sec then took 2 more laps in room CGA improved stability,stated I am getting better but do need the walker for now, suprised my balance isn't good right now when walking and head turns. 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 Pt returned to room, standing in front chair, instructed static standing balance activities: NBOS 30 s EC, stagger L LE forward Ec 30s/ R foot forward Ec 14 sec before LOB self recovery on FWW CGA for safety, seated in chair SBA. Pt had call light and all needs in reach, in room. Pt is ok to return home with to assist him when medically cleared. Gait Assessment Gait Gait Assistance Required: Standby Assistance,Contact Guard Assist Distance (Feet) 260 Able to Maintain Weight Bearing Status Yes During Gait Assistive Devices Assistive Device None,Gait Belt,Front Wheeled Walker Orthotic/Prosthetic Devices or Brace: No Gait Deviations General Gait Pattern Antalgic,Decreased Stride Length,Decreased Feet Clearance Factors Limiting Gait Function Factors Limiting Gait Function Decreased Strength,Pain,Poor Balance,Respiratory Distress Comments Gait Comments Pt presents with decreased stability on LLE, see mobility details. 90 ft in room no AD, gait hallway w/ FWW 170 ft receiprocal stepping CG- sBA. Stair Climbing Assessment Evaluation Level of Assist On Stairs Standby Assistance,Contact Guard Assistance,1 Person Assistance Devices Stair Climbing Assistive Devices Right Railing Technique/Endurance Stair Climbing Direction Ascend and Descend Stair Climbing Technique Step Over Step,Step to Step Number of Steps Climbed 3 Stair Climbing Set # Repetitions (reps) 2 Comments Stair Climbing Comments see mobility comments for details. PT-Balance Assessment Sitting Balance and Reactions Static Sitting Balance Ability Normal Dynamic Sitting Balance Ability Good Standing Balance and Reactions Static Standing Balance Ability Good Dynamic Standing Balance Ability Good Device Used FWW, fair no AD. Functional Assessments Other Functional Tests Performed See mobility details for EC balance testing. M5 PT-IP Objective Assessments Start: 09/13/21 08:13 Freq: NEEDED Status: Active Protocol: Document 09/13/21 14:18 AW (Rec: 09/13/21 15:35 AW [id number]) Orientation Orientation/Cognition Level of Alertness Alert Orientation Name,Day of Week,Place, Situation Language Function Ability No Deficits Noted Safety Awareness Understands Safety Issues Gross Range of Motion Upper Extremity ROM Assessment Within Functional Limits Lower Extremity ROM Assessment Within Functional Limits Strength Upper Extremity Strength Assessment Within Functional Limits Lower Extremity Strength Assessment Left Impaired Hip 4-/5 Knee 3+/5 limited by pain Ankle 4+/5 Comments Strength Comments RLE grossly 4+/5 Coordination Assessment Assessment Finger to Nose Test Minimal Impairment Foot Tapping Test Normal Performance Coordination Comments Pt missed targets on finger to nose by ~1 cm with LUE. Sensation Assessment Sensation Gross Sensation WNL Comments Sensation Comments Pt denies sensation disturbance. Muscle Tone Muscle Tone WNL Yes Other Assessments Other Other Assessments Oculomotor and vestibular screenings were grossly normal . M6 PT-IP Treatment Start: 09/13/21 08:13 Freq: NEEDED Status: Active Protocol: Document 09/14/21 11:16 SP (Rec: 09/14/21 16:26 SP [id number]) Physical Therapy Treatment Education Education Provided Safety Other Treatments Other Treatment Performed Reviewed recommendation to pt and spouse on continued use of FWW at this time for stability and possible referral to outpatient PT to improve strength and balance, verbalized in agreement. M7 PT-IP Assessment and Plan Start: 09/13/21 08:13 Freq: NEEDED Status: Active Protocol: Document 09/14/21 11:16 SP (Rec: 09/14/21 16:26 SP [id number]) PT Summary Assessment and Plan Potential Rehabilitation Potential Good Status of Condition at Evaluation Evolving Summary Impairments Pain,Strength,Balance, Transfers,Gait,Activity Tolerance Progress Towards Goals Progressing Toward Goals,Slow Progress due to Activity Tolerance Assessment Summary SBA bed mob, transfers& gait CG- Min A no AD, CG- SBA w/ FWW, stair mgt CG- SBA 6 stairs step to patterning safest at this time. Pt is ok to return home when medically cleared with to assist him. Recommend outpt PT to improved strength, balance toward PLOF. Complete caregiver training no further needed. Will continue to assess progress. Goals Bed Mobility Goal Independent Transfer Goal Independent,Front Wheeled Walker Gait Goal Independent,Front Wheel Walker Gait Distance 150 Other Goals - up/down three steps with R rail ascending SBA Days to Meet Goals 5 Frequency of Treatment Frequency Of Treatment Once a Day Treatment Plan Physical Therapy Treatment Plan Bed Mobility Training,Transfer Training,Gait Training, Therapeutic Exercise,Balance Retraining,Discharge Planning, Hot or Cold Pack,Neuromuscular Re-ed,Coordination Retraining Other Recommendations and Next Treatment ed energy conservation Focus techniques, gait LRAD, balance activities Precautions Other Precautions falls Recommendations To Nursing Amount of Assist Needed 1 Person Assist Discharge Recommendations PT Discharge Recommendations Home with Assistance, Outpatient PT Transportation Needs at Discharge Private Vehicle
--- NOTE | 2021-09-14 15:54 | ST.SWALLOW ---
Visit Care Team Role Provider Type Nurys Sadler PA-C Primary Care Provider Advanced Diabetologist Specialty: Medical Address: [address] [place] [address], [id number] Email: [email or web address] Bradly Landa MD Family Provider Non-Staff Specialty: Family Practice Address: [address] [place] [address], [id number] Email: Jai Jaimes DO Emergency Provider Physician Referring Provider Specialty: Emergency Medicine Address: [address] [place] [address], [id number] Email: [email or web address] Ash Baldwin MD Admit Provider Physician Attending Provider Specialty: Internal Medicine Address: [address] [place] [address], [facility] Email: [email or web address] Modified Barium Swallow Study CLERICAL SPECIALIST Modified Barium Swallow Study Start: 09/14/21 12:15 Freq: Status: Active Protocol: Document 09/14/21 12:15 ZS (Rec: 09/14/21 12:21 ZS [id number]) Modified Barium Swallow Study Total Time Visit Start Time 09:30 Visit Stop Time 10:15 Total Visit Minutes 45 Setting Setting Acute Care Patient Information Identification Type Name,ID Wristband Patient History Per H&P: Pt is an 86-year-old male who lives on [facility] with his . He has had a 2 week history of progressive symptoms. He apparently has been having difficulty sleeping for several months. He had markedly worsening lower extremity edema in and developed worsening shortness of breath. He saw his primary care provider Dr. Raheem Irby on August 25 and his furosemide was discontinued. He was placed on torsemide and was take 40 mg until he lost 10 lb and then decrease to 20 mg. He also approximately 2 and half weeks ago was started on spironolactone. 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 Vivian Acosta. Since he was started on the spironolactone he has had progressive difficulty swallowing. He has had difficulty swallowing pills and now has had more difficulty swallowing food and water. He went back in for follow-up to see his primary care provider on September 07 and he complained of having significant dysphagia and it was thought that perhaps he was over diuresed because he had lost significant weight, did not have the swelling, did not have the shortness of breath and so his torsemide was decreased to 20 mg. The patient's symptoms progressively worsen. He apparently fell the day before yesterday and got tangled up in his sheets and fell and hit his nose. He was attempting to take Tylenol in the middle the night when he was not able to swallow it and he started choking and he spit it out and then had what they think was a syncopal episode at about 4: 00 a.m.. His awakened hearing a thud. He was alert and oriented and came to quickly. But was having increasing difficulty with swallowing and therefore they came to the ER for evaluation. He had an extensive workup in the ER which included a head CT that showed old lacunar infarcts. He had a CT angiogram of the neck which did not show any evidence of stenosis or masses CT angiogram of the head which showed no bleed. He currently is not able to eat or swallow medications. In fact he has not taken any of his medications today. He has a history of atrial fibrillation with chronic anticoagulation. Subjective Observations Pt reported a chronic cough present throughout the day and will sometimes experience emesis as a reflex when food does not go down properly. He stated when he starts coughing, he often will cough for a prolonged period before he is able to stop. Patient Positioning Position View Lat-A/P Imaging Lateral View Textures Administered Trials Presented Thin Liquid via Spoon,Thin Liquid via Cup,[place] Liquid via Cup,Honey Liquid via Spoon ,Regular Textures Oral Phase Source: MBSIMP (TM) (C) Bolus Specific Scoring Grid Lip Closure No Impairment (WNL) Tongue Control During Bolus Hold Mild Impairment Bolus Prep/Mastication No Impairment (WNL) Bolus Transport/Lingual Motion No Impairment (WNL) A/P Lingual Propulsion Delay No Oral Residue Mild Impairment Residue Clearing WFL Nasal Regurgitation No Additional Oral Phase Observations Pt exhibited no anterior loss of bolus and good a/p propulsion of bolus. Mild posterior loss of bolus during tongue hold. Mild residue observed following swallow which cleared with second swallow. Pharyngeal Phase Source: MBSIMP (TM) (C) Bolus Specific Scoring Grid Delayed Initiation of Pharyngeal Swallow Yes: Bolus head in pyriforms Soft Palate Elevation No Impairment (WNL) Tongue Base Strength/Range of Motion Minimal Impairment Residue Along the Tongue Base Yes Clearance of Residue Along Tongue Base WFL Laryngeal Elevation Mild Impairment Anterior Hyoid Movement Mild Impairment Epiglottic Range of Motion No Impairment (WNL) Vallecular Residue Yes Clearance of Vallecular Residue Mild Impairment Laryngeal Vestibular Closure Mild Impairment Pharyngeal Stripping Wave No Impairment (WNL) Pharyngeal Contraction No Impairment (WNL) Posterior Pharyngeal Wall Residue No Upper Esophageal Sphincter Opening Mild Impairment Residue in the Pyriform Sinuses Yes Clearance of Residue in the Pyriform Mild Impairment Sinuses Esophageal Clearance Upright Position Moderate Impairment Additional Pharyngeal Phase Observations Pt exhibited delayed pharyngeal swallow, with the head of the bolus in the pyriforms prior to initiation of swallow. Epiglottic movement was WNL, however, laryngeal vestibular closure, anterior hyoid movement, and laryngeal elevation were all mildly impaired, which results in increased risk for aspiration due to impaired airway protection. Four penetrations observed on thin liquids (2x at PAS 2 and 2x at PAS 5). Pt exhibited strong cough, though cough was not consistent with timing of penetrations. Two penetrations observed with nectar thick liquids (1x at PAS 2 and 1x at PAS 3). Chin tuck and effortful swallow were not effective for reducing instances of penetration. No penetration or aspiration observed with honey thick liquids or solid textures. Pt exhibited mild residue following all swallows and pooling in the valleculea on solid trials. A/P View Textures Administered Trials Presented Thin Liquid via Cup,Honey Liquid via Spoon,Barium Tablet A/P View Observations Pharyngeal Contraction No Impairment (WNL) Esophageal Function Slowed Clearing Esophageal Clearance Upright Position Moderate Impairment Esophageal Observations Esophageal Function Pt exhibited complete esophageal clearance of thin liquid in A/P view, though barium tablet stopped at gastroesophageal junction and was not cleared by end of study despite consumption of water and honey thick liquids. Honey thick liquids observed to stop at gastroesophageal junction and mild backflow below the level of the PES was observed. Clinical Impressions Dysphagia Type Oropharyngeal Dysphagia Findings The pt presents with oropharyngeal phase dysphagia characterized by reduced laryngeal vestibular closure, delayed initiation of pharyngeal swallow, and mild residue in pyriforms and valleculea, which increase risk of aspiration due to an impaired ability to protect the airway. Pt exhibited no penetration with honey thick liquids or solid textures, and this diet is recommended to reduce risk of aspiration. Recommend laryngoscopy to assess for vocal fold paresis. Recommend GI consult due to retention of honey thick liquids and barium tablet at gastroesophageal junction. Recommend outpatient speech therapy in-person on [facility] or via teletherapy following discharge from hospital. Rehabilitation Potential Good Patient Appropriate for Therapy Yes Recommendations Diet Liquids Order Honey Diet Order Regular Medication Recommendation As Tolerated Aspiration Precautions Recommended Precautions Upright at 90 Degrees,Small Bites/Sips Treatment Plan Therapy Recommendations Outpatient Speech Therapy Additional Therapy Recommendations Recommend outpatient therapy via teletherapy or in-person on [facility]. Recommended Referrals GI Consult Compensatory Strategies Recommendations Sitting Upright (90 deg), Double Swallow,Small Bites and Sips Short Term Goals 1. The pt will perform safe swallow strategies with oral intake independently to reduce risk of aspiration. 2. The pt will perform exercises to increase strength , coordination, and ROM of swallow musculature independently to reduce risk of aspiration and increase comfort with oral intake. Melter Caster Goals The pt will safely tolerate least restrictive diet to meet his nutrition and hydration needs. Placement Recommendation After Discharge Home
[2021-09-14] MEDS: TAMSULOSIN 0.4 MG CAPSULE 0.8 MG PO (17:22)
[2021-09-14] MEDS: WARFARIN 5 MG TABLET 2.5 MG PO (17:50)
--- NOTE | 2021-09-14 18:28 | PM.PN.1 ---
Subjective Subjective Date Patient Seen: 09/14/21 Interval history: 86-year-old male with history of atrial fibrillation, on chronic warfarin anticoagulation, CHF, PMR on low-dose prednisone, COPD presented with symptoms of progressive hoarseness and trouble swallowing.? Symptoms present for months but last 2 weeks he has had a lot of difficulty swallowing.? He had choking episode while attempting to get fluids down causing brief episode of syncope where he hit his head, shoulder and knee. Brain MRI showed small foci of acute or subacute infarcts in the frontal and parietal lobes. [employer] evaluation and barium swallow today showed pills and thick liquids getting stuck and GEJ. Exam Vital Signs (past 8 hours): - 09/14/21 12:00 09/14/21 15:52 Temperature 97.7 F 97.3 F L Pulse Rate 115 H 103 H Respiratory Rate 20 18 Blood Pressure 103/63 115/74 Pulse Oximetry 97 97 Oxygen Delivery Method Room Air Oxygen Flow Rate 0 Narrative Exam Narrative: General:? Very pleasant male with a hoarse voice Lungs:? CTA B/l, no wheezing rhonchi or rales Heart: Irregularly irregular with normal rhythm Abdomen:?S NT ND Extremities:? No edema or joint effusions Neurological:? Patient has significant hoarse voice, no facial droop, no unilateral weakness Objective Labs Result Diagrams: 09/13/21 05:45 09/13/21 05:45 [facility] Medical History Age related cataract Ankle pain Anticoagulation goal of INR 2 to 3 Atrial fibrillation Atrial fibrillation Benign prostatic hyperplasia Chicken pox Cholelithiasis Chronic anticoagulation Chronic back pain COPD (chronic obstructive pulmonary disease) Gout Hearing loss Hemorrhoid History of gastric ulcer History of tobacco use Hyperlipidemia Hypertension Me[place] Mumps Obesity Osteoarthritis Pericarditis Pericarditis Polymyalgia rheumatica Tinnitus Vision disorder Surgical History Anesthesia History of ankle surgery (~1965) History of appendectomy (~2018) History of cataract removal with insertion of prosthetic lens History of laparotomy (~1999) History of tonsillectomy (~1944) Family History Mother Hypertension Heart disease Diabetes mellitus Hyperlipidemia Father Hypertension Hyperlipidemia Grandmother Pneumonia Social History marital status: household members: spouse occupational status: previously employed Smoking Status: Former smoker alcohol intake: former substance use type: does not use Assessment & Plan Assessment & Plan narrative: 86-year-old male with history of atrial fibrillation, on chronic anticoagulation, CHF, PMR on low-dose prednisone, COPD presented with symptoms of progressive hoarseness and trouble swallowing.? Symptoms present for months but last 2 weeks he has had a lot of difficulty swallowing.? Syncope at home and hit is head. 1.? 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 -Protonix 20 mg q.d. started due to his past history of complicated ulcer disease -support BP with IV fluids prn -MBS with speech therapy showed he was able to tolerate some thickened liquids, also showed possible narrowing at GEJ. Will see about inpatient or outpatient endoscopy given patient on warfarin. -PT/OT 2. Syncopal episode secondary to choking on fluids or pill -echo with normal LV function -telemetry 3. Progressive dysphagia -presumably due to recent strokes, though given PMR alternative diagnoses including esophageal dysfunction should be considered. Consider progressive gerd give [employer] findings. -continue PPI as noted above. -currently on honey thick with pureed food, adjust per [employer] evaluations -ST eval appreciated 4. Atrial fibrillation with RVR -continue metoprolol XR 100 mg q.d. -continue warfarin -closely monitor INR 5. Chronic diastolic heart failure, on warfarin anticoagulation -he put out 2 L after IV Lasix -doubt exacerbation with current echo findings -hold losartan, torsemide and spironolactone for now -patient does note he was recently taken off of furosemide and put on torsemide and lost a bunch of fluid weight in a short period of time, told to take between 10-20 mg torsemide daily based on weight -if discharge tomorrow will resume home medications at that time. 6. COPD -continue inhaler regimen 7.? Shoulder and knee contusions -no fracture, work with PT 8.? Polymyalgia rheumatica -continue prednisone 5 mg q.d. at bedtime per home routine Time Spent With Patient Critical Care time: I spent a total of [] minutes of critical care time on this patient's care today; this time is exclusive of procedural time. Quality VTE Deep Vein Thrombosis/Pulmonary Embolism Present on Admission: No
[2021-09-14] MEDS: ALBUTEROL 2.5 MG/3 ML NEB (ADULT) INH (19:44)
[2021-09-14] MEDS: predniSONE 5 MG TABLET PO (20:54)
[2021-09-14] MEDS: ATORVASTATIN 20 MG TABLET 10 MG PO (20:54)
[2021-09-14] MEDS: GABAPENTIN 100 MG CAPSULE PO (20:54)
[2021-09-15 05:41] VITALS: BP 117/80; PULSE 86; RESP 20; TEMP 36.7; O2SAT 97
[2021-09-15 07:00] VITALS: BP 141/80; PULSE 109; RESP 18; TEMP 36.6; O2SAT 95
[2021-09-15] MEDS: BUDESONIDE 0.5 MG/2 ML NEB INH (07:22)
[2021-09-15 07:23] VITALS: O2SAT 96
[2021-09-15 08:39] VITALS: PULSE 110
[2021-09-15] MEDS: METOPROLOL ER 50 MG TABLET 100 MG PO (08:39)
[2021-09-15] MEDS: allopurinoL 300 MG TABLET PO (08:39)
--- NOTE | 2021-09-15 10:10 | P.DS_ITS ---
History of Present Illness History of Present Illness Date Patient Seen: 09/15/21 Time Patient Seen: 08:00 Chief complaint: Fall, difficulty swallowing x 2 weeks, on thinners Narrative: Per Dr. Eugene, This is a very pleasant 86-year-old male who lives on [facility]? with his .? He has had a 2 week history of progressive symptoms.? He apparently has been having difficulty sleeping for several months.? He had markedly worsening lower extremity edema in and developed worsening shortness of breath.? He saw his primary care provider Dr. Raheem Irby on August 25 and his furosemide was discontinued.? He was placed on torsemide and was take 40 mg until he lost 10 lb and then decrease to 20 mg.? He also approximately 2 and half weeks ago was started on spironolactone.? This was by his sewing machine operator semiautomatic Dr. Vivian Acosta.? Since he was started on the spironolactone he has had progressive difficulty swallowing.? He has had difficulty swallowing pills and then now has had more difficulty swallowing food and even water.? He went back in for follow-up to see his primary care provider on September 07 and he complained of having in significant dysphagia and it was thought that perhaps he was over diuresed because he had lost significant weight in did not have the swelling did not have the shortness of breath and so his torsemide was decreased to 20 mg.? The patient's symptoms progressively worsen.? He apparently fell the day before yesterday and got tangled up in his sheets and fell and hit his nose.? He was attempting to take Tylenol in the middle the night when he was not able to swallow it and he started choking and he spit it out and then had with the think was a syncopal episode at about 4:00 a.m..? His awakened hearing a thud.? He was alert and oriented and came to quickly.? But was having increasing difficulty with swallowing and therefore they came to the ER for evaluation.? He had an extensive workup in the ER which included a head CT that showed old lacunar infarcts.? He had a CT angiogram of the neck which did not show any evidence of stenosis or masses CT angiogram of the head which showed no bleed.? His blood work was remarkable for normal troponin but mildly elevated CK a.m. mildly elevated creatinine with a chest x-ray showing left lower lobe possible infiltrate and some pulmonary edema.? He was given 40 mg of IV Lasix and has had great urinary output since then approximately 1200 cc of urine in is feeling b alexus.? He was admitted for further evaluation of his dysphagia and treatment as well of supportive care as he currently is not able to eat or swallow medications.? In fact he has not taken any of his medications today.? He did take his methotrexate which is once weekly injectable that he takes for his polymyalgia rheumatica. Discharge Providers Provider Date of admission: 09/12/21 18:49 Discharge Date: 09/15/21 Primary care physician: Nurys Sadler PA-C Consults: 09/12/21 21:24 Consult to Discharge Planning Routine Comment: 09/12/21 21:34 Consult to Respiratory Therapy Evaluate & Treat Comment: Physician Instructions: Evaluate and treat 09/12/21 21:58 Consult to Physical Therapy Evaluate & Treat Comment: Physician Instructions: Evaluate and Treat 09/13/21 03:27 Consult to Speech Therapy Evaluate & Treat Comment: Physician Instructions: Evaluate and treat Discharge provider: Diaz Moeller DO Summary Hospital Course Discharge Diagnosis: 1.? 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 Syncopal episode secondary to choking on fluids or pill 3. Progressive dysphagia secondary to CVA 4. Chronic Atrial fibrillation with RVR 5. Chronic diastolic heart failure, on warfarin anticoagulation 6. COPD 7.? Shoulder and knee contusions 8.? Polymyalgia rheumatica Hospital Course: 86-year-old male with history of atrial fibrillation, on chronic warfarin anticoagulation, CHF, PMR on low-dose prednisone, COPD presented with symptoms of progressive hoarseness and trouble swallowing.? Symptoms present for months but last 2 weeks he has had a lot of difficulty swallowing.? He had choking episode while attempting to get fluids down causing brief episode of syncope where he hit his head, shoulder and knee. Brain MRI showed small foci of acute or subacute infarcts in the frontal and parietal lobes. [employer] evaluation and barium swallow today showed pills and thick liquids getting stuck and GEJ as well as aspiration with thin liquids. General surgery recommended outpatient evaluation given his warfarin use for possible EGD to evaluate the possible narrowing at the GEJ, as he might require dilatat ion cessation of anticoagulation is recommended prior to procedure. He had no symptoms of chest pain while on a modified diet here, but did report symptoms as an outpatient. PPI is recommended at the time of discharge. [employer] also recommend ENT evaluation given hoarseness for a vocal cord evaluation and given his aspiration that was noted on barium swallow, this can be performed as an outpatient as well. He was evaluated by therapies and is appropriate for discharge home. Given source of CVA is likely embolic in setting of chronic atrial fibrillation, no medication changes are recommended at the time of discharge. Time Spent with Patient Time spent: Greater than 30 minutes Exam Vital Signs (past 8 hours): - 09/15/21 05:41 09/15/21 07:00 09/15/21 07:23 Temperature 98.1 F 97.9 F Pulse Rate 86 109 H Respiratory Rate 20 18 Blood Pressure 117/80 141/80 H Pulse Oximetry 97 95 96 09/15/21 08:39 Temperature Pulse Rate 110 H Respiratory Rate Blood Pressure Pulse Oximetry Oxygen Delivery Method Room Air Oxygen Flow Rate 0 Narrative Exam Narrative: General:? Very pleasant male with a hoarse voice Lungs:? CTA B/l, no wheezing rhonchi or rales Heart: Irregularly irregular with normal rhythm Abdomen:?S NT ND Extremities:? No edema or joint effusions Neurological:? Patient has significant hoarse voice, no facial droop, no unilateral weakness Objective Labs Result Diagrams: 09/13/21 05:45 09/13/21 05:45 [facility] Medical History Age related cataract Ankle pain Anticoagulation goal of INR 2 to 3 Atrial fibrillation Atrial fibrillation Benign prostatic hyperplasia Chicken pox Cholelithiasis Chronic anticoagulation Chronic back pain COPD (chronic obstructive pulmonary disease) Gout Hearing loss Hemorrhoid History of gastric ulcer History of tobacco use Hyperlipidemia Hypertension [place] Obesity Osteoarthritis Pericarditis Pericarditis Polymyalgia rheumatica Tinnitus Vision disorder Surgical History Anesthesia History of ankle surgery (~1965) History of appendectomy (~2018) History of cataract removal with insertion of prosthetic lens History of laparotomy (~1999) History of tonsillectomy (~1944) Family History Mother Hypertension Heart disease Diabetes mellitus Hyperlipidemia Father Hypertension Hyperlipidemia Grandmother Pneumonia Social History (Reviewed 09/12/21 @ 16:41 by AKBAR De Santiago marital status: household members: spouse occupational status: previously employed Smoking Status: Former smoker alcohol intake: former substance use type: does not use Discharge Plan Discharge Plan Patient Disposition: Home Provider Discharge Comment: You were admitted to the hospital with trouble swallowing. Please follow up with general surgery for EGD for further evaluat ion, or GI if you prefer after PCP evaluation. Please try and follow up with PCP this week or next week if possible to go over hospitalization. You are recommended for thickened liquids only. Discharge orders & Medications Prescriptions: Continued finasteride 5 mg tablet 5 mg PO DAILY Qty: 90 3RF allopurinol 300 mg tablet 300 mg PO DAILY Qty: 90 4RF lovastatin 40 mg tablet 40 mg PO QPM Qty: 90 4RF metoprolol succinate 100 mg tablet extended release 24 hr 100 mg PO DAILY Qty: 90 4RF tamsulosin [Flomax] 0.4 mg capsule 0.8 mg PO QPM Qty: 180 4RF warfarin [Jantoven] 2.5 mg tablet 2.5 mg PO DAILY Qty: 90 4RF budesonide-formoterol [Symbicort] 80-4.5 mcg/actuation HFA aerosol inhaler 2 puff inhalation BID Qty: 3 3RF methotrexate sodium (PF) 25 mg/mL solution 1 ml IM QWEEK 0RF Label Comments: tuesday Rx Instructions: pt says he just hasn't taken it in a while multivitamin [One Daily Multivitamin] Tablet 1 tab PO DAILY 0RF ascorbic acid (vitamin C) 500 mg Tablet 500 mg PO BID 0RF gabapentin 100 mg capsule 100 mg PO TID 0RF prednisone 5 mg tablet 5 mg PO BEDTIME 0RF albuterol sulfate 90 mcg/actuation HFA aerosol inhaler 2 puff INHALATION Q4H PRN (Reason: shortness of breath or wheezing) 0RF amlodipine 10 mg tablet 10 mg PO DAILY 0RF spironolactone 25 mg tablet 25 mg PO DAILY 0RF magnesium chloride 64 mg magnesium tablet 64 mg PO DAILY 0RF losartan 100 mg tablet 100 mg PO DAILY 0RF acetaminophen [Tylenol Extra Strength] 500 mg tablet 1,000 mg PO TID PRN (Reason: Pain (Scale Score 1-3)) 0RF torsemide 20 mg tablet 20 mg PO DAILY Qty: 90 3RF Follow up/Referrals: Jeremias Franks MD [Physician] - 10/02/21 10:45 am (appt:10/02 @ 10:45 check in w/ for a 11:00 consultation appoin tment Pills and food stuck at EGJ on barium swallow, refer for EGD. Patient on coumadin.) Nurys Sadler PA-C [Primary Care Provider] - 09/23/21 11:00 am (appt:09/23 11:00 check in for a 11:15 with Peña p-ac ) Diet/Activity/Treatments Diet: Diet as Tolerated Diet comment: Thickened liquids only, please follow speech recommendations Activity: As tolerated Visit Report/Discharge Packet Instructions: Upper GI Endoscopy, Aspiration Pneumonia, DI for Heart Failure Discharge Data Primary Care Provider: Nurys Sadler Quality VTE Deep Vein Thrombosis/Pulmonary Embolism Present on Admission: No
[2021-09-15 11:00] VITALS: BP 103/66; PULSE 97; RESP 18; TEMP 36.7; O2SAT 98
--- NOTE | 2021-09-15 11:16 | CM.MNRNOTE ---
Assess- Patient is alert an oriented x3, he is not having any swallow issues today. Tolerated food well, but has been sneaking him water. talke to patient about this. He is going to go home today to [employer] [place]. Patient will be out of here around 1430. His EGD has been scheduled and doctors appts made. Resting comfortably. Will set up for a shower later.
--- NOTE | 2021-09-15 13:34 | ST.IPTN ---
Visit Care Team Role Provider Type Nurys Sadler PA-C Primary Care Provider [employer] Labor Supervisor Address: [address] [place] [address], [id number] Bradly Landa MD Family Provider Non-Staff Address: [address] [place] [id number] Jai Jaimes DO Emergency Provider Physician Referring Provider Address: [address] [place] [address], [id number] Ash Baldwin MD Admit Provider Physician Attending Provider Address: [address] [place] [address], [id number] TAPE CONTROLLED MACHINE STITCHER Treatment Note TAPE CONTROLLED MACHINE STITCHER Treatment Note Start: 09/15/21 13:17 Freq: Status: Active Protocol: Document 09/15/21 13:17 PRABHA (Rec: 09/15/21 13:30 [id number]) Speech Pathology Treatment Note Session Time Visit Start Time 09:00 Visit Stop Time 09:30 Total Visit Minutes 30 Setting Treatment Setting Acute Care Visit Type Note Type Treatment Note Next Note Type Next Note Type Treatment Note General Information Patient History 86-year-old male with history of atrial fibrillation, on chronic anticoagulation, CHF, PMR on low-dose prednisone, COPD presented with symptoms of progressive hoarseness and trouble swallowing.? Symptoms present for months but last 2 weeks he has had a lot of difficulty swallowing.? Syncope at home and hit is head. Subjective Others Present Family Observations/Patient Presentation The pt was awake, sitting up in bed with breakfast tray present. was bedside also eating breakfast and drinking water. The pt reported he had had some unthickened water without any problem. He also expressed a dislike of HTL. Chief Complaint(s) Swallowing,Voice Patient Knowledge/Awareness of TAPE CONTROLLED MACHINE STITCHER Role Good in Treatment Parent/Caretake Knowledge/Awareness of Good TAPE CONTROLLED MACHINE STITCHER Role in Treatment Objective Short Term Goals 1. Pt will follow safe swallow strategies to reduce risk of aspiration. 2. Pt will perform exercises to increase airway protection with swallow to reduce risk of aspiration. Medical Logistics Specialist Goals Pt will tolerate least restrictive diet to meet nutrition and hydration needs. Treatment Activities Extensive education was provided to the pt and spouse RE yesterday's MBSS findings, including silent penetration of thin and NTLs and the high risk of aspiration that accompanies his consumption of these liquids. The pt was encouraged to continue with HTLs for safety at this time. Discussed objectives of outpatient therapy after hospital discharge, including exploration of compensatory swallow strategies and postural changes with oral intake, as well as exercise plan to improve strength of musculature to improve airway protection with intention of eventual return to thin liquids. Additionally, education was provided RE the role of VFs on airway protection and the importance of ENT assessment to determine VF integrity and ability to adduct in order to protect the airway. This will also assist in determining prognosis and guide voice therapy POC. If ENT consultation is unavailable during the pt's hospital stay, outpatient evaluation will be important. All information was provided orally and in writing. The pt and his verbalized understanding. All of their questions were answered. Moderate-severe rough vocal quality was perceived throughout conversation. Question adequate VF adduction both for voice and airway protection. ENT evaluation is recommended. Assessment Rehab Potential Good Impairments Identified Swallow,Voice Assessment of Improvement The pt continues to be at high risk of aspiration, likely silent, with thin and NTLs. Recommend he continue HTLs at this time. MBSS results indicated adequate safety with solids. Given the sudden onset and severity of the pt's hoarse vocal quality, VF paresis is possible and cannot be ruled out without ENT evaluation, which is strongly recommended to guide both dysphagia and voice therapy. Reviewed with Patient Goals,Progress Being Made,Home Exercise Program Patient/Caregiver Understanding Good Plan Therapeutic Contents Client Education,Swallowing/ Feeding,Voice Training Provided Patient/Caregiver Instruction Plan of Care,Questions/ Concerns Therapy Recommendations Continue with Current Program Comment Outpatient therapy recommended after hospital discharge Suggested Referral ENT,GI
== END 2021-09-15 14:55 | disposition home or self-care (01) | DRG 65 ==
LOC: ED 16:52 → AC 20:19
PROVIDERS: Family Medicine; Admitting Provider Internal Medicine; Emergency Provider Emergency Medicine; Family Provider Family Medicine; PCP Physician Assistant; Referring Provider Emergency Medicine; Visit Provider Internal Medicine
DX: I63.9 Cerebral infarction, unspecified (principal); I50.32 Chronic diastolic (congestive) heart failure; I48.20 Chronic atrial fibrillation, unspecified; R13.10 Dysphagia, unspecified; I11.0 Hypertensive heart disease with heart failure; J44.9 Chronic obstructive pulmonary disease, unspecified; R55 Syncope and collapse; S80.02XA Contusion of left knee, initial encounter; W18.30XA Fall on same level, unspecified, initial encounter; M35.3 Polymyalgia rheumatica; N40.0 Benign prostatic hyperplasia without lower urinary tract symptoms; E78.5 Hyperlipidemia, unspecified; Z87.891 Personal history of nicotine dependence; Z20.822 Contact with and (suspected) exposure to COVID-19; Z79.01 Long term (current) use of anticoagulants
CPT/HCPCS: 36415; 70496; 70498; 70553; 71045; 73502; 73562; 74230; 80053; 81003; 82550; 82553; 83690; 83735; 83880; 84484; 85025; 85610; 85651; 86140; 87635; 92526; 92611; 93306; 94640; 96374; 97116; 97162; 97530; 97535; 99284; 99285; C9803; A9579; J1720; J1940; J2930; J7050; J7613

== ENCOUNTER → 2021-09-23 14:14 | Outpatient (CLI) | payer MEDICARE, SELFPAY ==
[2021-09-15 10:24] VITALS: BMI 29.0
== END ==
PROVIDERS: Family Provider Family Medicine; PCP Family Medicine; Visit Provider Family Medicine
DX: R13.10 Dysphagia, unspecified (principal)
CPT/HCPCS: 87070

== ENCOUNTER 2021-09-25 14:11 | Inpatient (IN) | payer MEDICARE, SELFPAY ==
[2021-09-15 10:24] VITALS: BMI 29.0
[2021-09-25] VITALS (16 sets, daily range): BP systolic 96–138; BP diastolic 57–83; PULSE 110–127; RESP 16–44; TEMP 36.9–37.8; O2SAT 80–98; BMI 27.9; BMI 27.5
--- NOTE | 2021-09-25 14:37 | DI.RAD.S_ITS ---
PROCEDURE: XR CHEST 1V INDICATIONS: can't swallow TECHNIQUE: One view of the chest was acquired. COMPARISON: [facility], CR, XR CHEST 1V, 09/12/2021, 16:15. FINDINGS: Surgical changes and devices: None. Lungs and pleura: There is an overall appearance of increased pulmonary vascularity. Blunting the costophrenic angles are unchanged. Elevation of the left hemidiaphragm is stable. Mild appearance of linear opacities is noted within the left base. Mediastinum: Mediastinal contours appear normal. Heart size is enlarged. Bones and chest wall: No suspicious bony lesions. Overlying soft tissues appear unremarkable. IMPRESSION: Linear left lower lobe opacities suggestive atelectasis. Dictated by: Amy Godinez M.D. on 09/25/2021 at 15:37 Approved by: Amy Godinez M.D. on 09/25/2021 at 15:38
--- NOTE | 2021-09-25 14:52 | DI.CT.S_ITS ---
PROCEDURE: CT HEAD/BRAIN WO CON INDICATIONS: hit head on anticoagulation TECHNIQUE: Noncontrast 4.5 mm thick angled axial sections acquired from the foramen magnum to the vertex, with coronal and sagittal reformats. For radiation dose reduction, the following was used: automated exposure control, adjustment of mA and/or kV according to patient size. COMPARISON: [facility], CT, CT ANGIO HEAD AND NECK, 09/12/2021, 16:42. [facility], MR, MR HEAD/BRAIN WO/W CON, 09/13/2021, 8:11. FINDINGS: Image quality: Excellent. CSF spaces: Basal cisterns are patent. No extra-axial fluid collections. The ventricles are symmetric in size and shape. Brain: No intracranial bleeds or masses. There is cerebral volume loss for age, with resultant ventricular and sulcal prominence. There are periventricular and deep white matter chronic small vessel ischemic changes. A right basal ganglia remote lacunar infarct can be seen, as on series 2, image 14. There is intracranial internal carotid artery atherosclerosis. Skull and face: Calvarium and visualized facial bones appear intact, without suspicious lesions. Sinuses: Visualized sinuses and mastoids are clear. IMPRESSION: Negative for acute hemorrhage. Note: Case discussed by telephone with Dr. Simmons at 2:17 p.m. [place] time on September 25, 2021. Dictated by: Aaron Garvin M.D. on 09/25/2021 at 14:15 Approved by: Aaron Garivn M.D. on 09/25/2021 at 14:18
[2021-09-25 14:58] LABS: Add Manual Diff / Slide Review NO; Basophils Absolute Auto 0 /uL (0-100); Basophils Percent Auto 0.4 % (0-2); Eosinophils Absolute Auto 100 /uL (0-450); Eosinophils Percent Auto 0.9 % (2-4); Hematocrit 42.8 % (41-53); Hemoglobin 14.7 g/dL (13.5-17.5); Lymphocytes Absolute Auto 500 /uL (1100-4500); Mean Corpuscular HGB Conc 34.3 % (30-36); Mean Corpuscular Volume 96.2 fL (80-100); Monocytes Absolute Auto 1000 /uL (0-900); Monocytes Percent Auto 8.7 % (3-14); Neutrophils Absolute Auto 9700 /uL (1500-7000); Platelet Count 289 X10^3/uL (150-400); Red Blood Cell Count 4.45 X10^6/uL (4.5-5.9); Red Cell Distribution Width 16.5 % (11.6-14.8); White Blood Cell Count 11.3 X10^3/uL (4.5-11.0)
--- NOTE | 2021-09-25 15:00 | ED.URI ---
HPI - URI/Sore Throat General Chief Complaint: Upper Respiratory Symptoms Stated Complaint: can't swallow, dehydrated, had a stroke end of Apr Time Seen by Provider: 09/25/21 14:35 Mode of arrival: Family Vehicle History of Present Illness HPI Narrative: Patient is a 86-year-old male who has history of coronary artery disease, CHF, atrial fibrillation on Eliquis, hypertension, COPD, presents with difficulty swallowing his secretions. 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 He had progressive dysphasia secondary to his CVA with barium swallow. states that since he has been home as progressively gotten worse. His throat hurts. He is currently spitting up into a blue bag. Unable to tolerate anything. The last 24 hours he has been unable to take any of his medications. He says he is having increasing shortness of breath as well. He has not had any further falling. states that he had low-grade temperature today of about 99. Related Data Home Medications Medication Instructions Recorded Confirmed ascorbic acid (vitamin C) 500 mg 500 mg PO BID 05/04/18 09/12/21 tablet methotrexate sodium (PF) 25 mg/mL 1 ml IM QWEEK 05/04/18 09/12/21 injection solution multivitamin (One Daily 1 tab PO DAILY 05/04/18 09/12/21 Multivitamin) gabapentin 100 mg capsule 100 mg PO TID 06/05/19 09/12/21 albuterol sulfate 90 mcg/actuation 2 puff INHALATION Q4H PRN gram 11/07/20 09/12/21 aerosol inhaler acetaminophen 500 mg tablet 1,000 mg PO TID PRN tab 08/25/21 09/12/21 (Tylenol Extra Strength) amlodipine 10 mg tablet 10 mg PO DAILY 08/25/21 09/12/21 losartan 100 mg tablet 100 mg PO DAILY 08/25/21 09/12/21 magnesium chloride 64 mg PO DAILY tab 08/25/21 09/12/21 spironolactone 25 mg tablet 25 mg PO DAILY 08/25/21 09/12/21 prednisone 5 mg tablet 5 mg PO BEDTIME 09/12/21 09/12/21 Previous Rx's Medication Instructions Recorded finasteride 5 mg tablet 5 mg PO DAILY #90 tab 03/31/21 allopurinol 300 mg tablet 300 mg PO DAILY #90 tab 06/03/21 lovastatin 40 mg tablet 40 mg PO QPM #90 tab NS 06/03/21 metoprolol succinate 100 mg 100 mg PO DAILY #90 tab 06/03/21 tablet,extended release 24 hr tamsulosin 0.4 mg capsule (Flomax) 0.8 mg PO QPM #180 cap 06/03/21 torsemide 20 mg tablet 20 mg PO DAILY #90 tab 08/25/21 budesonide-formoterol HFA 80 2 puff INHALATION BID #3 unit 09/02/21 mcg-4.5 mcg/actuation aerosol inhaler (Symbicort) apixaban 5 mg tablet (Eliquis) 5 mg PO BID #180 tab 09/17/21 famotidine 40 mg tablet (Pepcid) 40 mg PO BEDTIME #90 tab 09/23/21 lidocaine HCl 2 % mucosal solution See Rx Instructions MUCOUS 09/23/21 (Lidocaine Viscous) MEMBRANE BID #100 ml clotrimazole 10 mg yuliya 10 mg MUCOUS MEMBRANE 5XD #35 tab 09/25/21 hydrocodone 5 mg-acetaminophen 300 1 tab PO Q4-6H PRN #30 tab 09/25/21 mg tablet Allergies Allergy/AdvReac Type Severity Reaction Status Date / Time latex [LATEX] Allergy Mild Rash Verified 09/25/21 14:27 Review of Systems Review of Systems Narrative: GENERAL: Denies chills, fatigue, malaise, fever, sweats, travel HEENT: See HPI RESPIRATORY: Denies dyspnea, cough, wheezing, hemoptysis, sputum. CARDIOVASCULAR: Denies chest pain, palpitations, orthopnea, edema GASTROINTESTINAL: Denies nausea, vomiting, abdominal pain, diarrhea, constipation, melena. : Denies dysuria, frequency, incontinence, hematuria, urinary retention, flank pain. MUSCULOSKELETAL: Denies weakness, joint pain, or bony pain SKIN: No rash, no erythema, no pruritus NEUROLOGIC: Denies weakness, dizziness, headache, numbness, change in speech, confusion PSYCHIATRIC: No concerning psychosocial issues. 12 point review of systems is negative except for those stated above and HPI Patient History Medical History (Updated 09/25/21 @ 19:48 by Sharda Simmons DO) Age related cataract Ankle pain Anticoagulation goal of INR 2 to 3 Atrial fibrillation Atrial fibrillation Benign prostatic hyperplasia Chicken pox Cholelithiasis Chronic anticoagulation Chronic back pain COPD (chronic obstructive pulmonary disease) Gout Hearing loss Hemorrhoid History of gastric ulcer History of tobacco use Hyperlipidemia Hypertension Measles Mumps Obesity Osteoarthritis Pericarditis Polymyalgia rheumatica Tinnitus Surgical History (Updated 09/17/21 @ 07:10 by Michelet Irby MD) Anesthesia History of ankle surgery (~1965) History of appendectomy (~2018) History of cataract removal with insertion of prosthetic lens History of laparotomy (~1999) History of tonsillectomy (~1944) Family History Mother Hypertension Heart disease Diabetes mellitus Hyperlipidemia Father Hypertension Hyperlipidemia Grandmother Pneumonia Social History marital status: household members: spouse occupational status: previously employed Smoking Status: Former smoker alcohol intake: former substance use type: does not use Smoking Status: Former smoker alcohol intake frequency: holidays/special occasions only Substance Use Type: does not use Exam Initial Vital Signs Initial Vital Signs: Vital Signs Temperature 98.4 F 09/25/21 14:19 Pulse Rate 110 H 09/25/21 14:19 Respiratory Rate 16 09/25/21 14:19 Blood Pressure 128/63 09/25/21 14:19 Pulse Oximetry 97 09/25/21 14:19 GENERAL: [Well-appearing, well-nourished] and in [no acute] distress. HEENT: Head atraumatic,EOMI, pupils reactive, face symmetric, [moist] mucous membranes [EARS:] [Tympanic membranes visualized, no erythema or bulging, no hemotympanum] [PHARYNX:] [No erythema, no tonsillar exudate, no cervical lymphadenopathy] CARDIOVASCULAR: Regular rate and rhythm without murmurs, rubs or gallops. RESPIRATORY: Breath sounds equal bilaterally, no wheezes rales or rhonchi. ABDOMEN: Soft, nontender. Normoactive bowel sounds all 4 quadrants. No guarding or rebound. [RECTAL:] [Hemoccult-positive, no hemorrhoids, nontender] : No CVA tenderness EXTREMITIES: Normal range of motion, no clubbing or edema. Neurovascularly intact NEUROLOGICAL: Alert and oriented x4.Normal gait and speech. Cranial nerves II through XII grossly intact. [Good uhitur-gr-bhrd, good soje-km-ixuz, strength equal bilaterally, no dysarthria or aphasia, sensation in tact to soft touch bilaterally, no visual changes, no facial droop] SKIN: Warm, dry, no laceration, no petechiae, no rashes or lesions. Course Orders Ordered: ED Orders 09/25/21 14:37 XR chest 1V Stat EKG-12 Lead Stat 09/25/21 14:44 COVID19 -Nasal RAPID/Pre-Proc Stat Complete Blood Count AUTO DIFF Stat Comprehensive Metabolic Panel Stat Lactate (Lactic Acid) Stat Lipase Stat NT-proBNP (BNP-Adult 18+) Stat Procalcitonin Stat Troponin & CK Cardiac Panel Stat 09/25/21 14:52 CT head/brain wo con Stat 09/25/21 15:36 Blood Culture Stat Lactate (Lactic Acid) Stat Sodium Chloride (Normal Saline 0.9%) 1,000 mls @ 150 mls/hr IV CONT ELTON Last Admin: 09/25/21 15:15 Dose: 150 mls/hr Documented by: YANET Levofloxacin (Levaquin) 750 mg in 150 mls @ 100 mls/hr IV NOW ONE Stop: 09/25/21 21:04 Discontinued Medications Morphine Sulfate (Morphine 2 Mg/Ml Inj) 2 mg IV NOW ONE Stop: 09/25/21 16:57 Last Admin: 09/25/21 17:24 Dose: 2 mg Documented by: YANET Vital Signs Vital signs: Vital Signs - 8 hr 09/25/21 14:19 09/25/21 15:08 09/25/21 15:10 Temperature 98.4 F Pulse Rate 110 H 120 H 117 H Respiratory Rate 16 36 H 34 H Blood Pressure 128/63 126/65 Pulse Oximetry 97 80 L 98 09/25/21 15:30 09/25/21 16:00 09/25/21 16:30 Temperature Pulse Rate 114 H 119 H 125 H Respiratory Rate 27 H 32 H 44 H Blood Pressure 124/65 138/67 Pulse Oximetry 96 96 96 09/25/21 16:31 09/25/21 17:00 09/25/21 17:30 Temperature Pulse Rate 124 H 127 H 120 H Respiratory Rate 33 H 36 H 32 H Blood Pressure 117/74 118/62 129/59 L Pulse Oximetry 96 95 95 09/25/21 18:00 09/25/21 18:30 Temperature Pulse Rate 117 H 121 H Respiratory Rate 29 H 26 H Blood Pressure 135/83 115/72 Pulse Oximetry 94 94 MDM - URI/Sore Throat Lab Data Result diagrams: 09/25/21 14:44 09/25/21 14:44 Labs: Lab Results 09/25/21 09/25/21 09/25/21 Range/Units 14:44 14:44 14:44 WBC 11.3 H (4.5-11.0) X10^3/uL RBC 4.45 L (4.5-5.9) X10^6/uL Hgb 14.7 (13.5-17.5) g/dL Hct 42.8 (41-53) % MCV 96.2 (80-100) fL MCH 33.0 (26-34) PG MCHC 34.3 (30-36) % RDW 16.5 H (11.6-14.8) % Plt Count 289 (150-400) X10^3/uL Neut % (Auto) 86.0 H (50-75) % Lymph % (Auto) 4.0 L (25-40) % [place] % (Auto) 8.7 (3-14) % Eos % (Auto) 0.9 L (2-4) % Baso % (Auto) 0.4 (0-2) % Neut # (Auto) 9700 H (3156-4604) /uL Lymph # (Auto) 500 L (0661-1737) /uL [place] # (Auto) 1000 H (0-900) /uL Eos # (Auto) 100 (0-450) /uL Baso # (Auto) 0 (0-100) /uL Sodium 132 L (137-145) mmol/L Potassium 4.7 (3.4-5.1) mmol/L Chloride 98 (98-107) mmol/L Carbon Dioxide 24 (22-32) mmol/L BUN 27 H (9-20) mg/dL Creatinine 1.15 (0.66-1.25) mg/dL Estimated GFR > 60 (>60) mL/min BUN/Creatinine Ratio 23.5 H (6-22) Glucose 174 H (80-110) mg/dL Lactate (0.7-2.1) mmol/L Calcium 8.8 (8.4-10.2) mg/dL Total Bilirubin 1.9 H (0.2-1.3) mg/dL AST 31 (17-59) IU/L ALT 24 (<50) IU/L Alkaline Phosphatase 101 (38-126) U/L Total Creatine Kinase 38 L (55-170) U/L CK-MB (CK-2) TNP CK-MB (CK-2) Rel Index TNP Troponin I < 0.012 (0.01-0.034) ng/mL NT-Pro-B Natriuret Pep 1710 H (<450) pg/mL Total Protein 7.4 (6.3-8.2) g/dL Albumin 4.1 (3.5-5.0) g/dL Globulin 3.3 (1.7-4.1) g/dL Albumin/Globulin Ratio 1.2 (1.0-2.8) Lipase 76 (23-300) U/L Procalcitonin (<0.5) ng/mL SARS-CoV-2 (PCR) (Negative) 09/25/21 09/25/21 09/25/21 Range/Units 14:44 14:44 14:44 WBC (4.5-11.0) X10^3/uL RBC (4.5-5.9) X10^6/uL Hgb (13.5-17.5) g/dL Hct (41-53) % MCV (80-100) fL MCH (26-34) PG MCHC (30-36) % RDW (11.6-14.8) % Plt Count (150-400) X10^3/uL Neut % (Auto) (50-75) % Lymph % (Auto) (25-40) % [place] % (Auto) (3-14) % Eos % (Auto) (2-4) % Baso % (Auto) (0-2) % Neut # (Auto) (2560-4263) /uL Lymph # (Auto) (6629-5256) /uL [place] # (Auto) (0-900) /uL Eos # (Auto) (0-450) /uL Baso # (Auto) (0-100) /uL Sodium (137-145) mmol/L Potassium (3.4-5.1) mmol/L Chloride (98-107) mmol/L Carbon Dioxide (22-32) mmol/L BUN (9-20) mg/dL Creatinine (0.66-1.25) mg/dL Estimated GFR (>60) mL/min BUN/Creatinine Ratio (6-22) Glucose (80-110) mg/dL Lactate 3.2 H (0.7-2.1) mmol/L Calcium (8.4-10.2) mg/dL Total Bilirubin (0.2-1.3) mg/dL AST (17-59) IU/L ALT (<50) IU/L Alkaline Phosphatase (38-126) U/L Total Creatine Kinase (55-170) U/L CK-MB (CK-2) CK-MB (CK-2) Rel Index Troponin I (0.01-0.034) ng/mL NT-Pro-B Natriuret Pep (<450) pg/mL Total Protein (6.3-8.2) g/dL Albumin (3.5-5.0) g/dL Globulin (1.7-4.1) g/dL Albumin/Globulin Ratio (1.0-2.8) Lipase (23-300) U/L Procalcitonin 0.08 (<0.5) ng/mL SARS-CoV-2 (PCR) Negative (Negative) 09/25/21 09/25/21 09/25/21 Range/Units 15:36 15:36 18:08 WBC (4.5-11.0) X10^3/uL RBC (4.5-5.9) X10^6/uL Hgb (13.5-17.5) g/dL Hct (41-53) % MCV (80-100) fL MCH (26-34) PG MCHC (30-36) % RDW (11.6-14.8) % Plt Count (150-400) X10^3/uL Neut % (Auto) (50-75) % Lymph % (Auto) (25-40) % [place] % (Auto) (3-14) % Eos % (Auto) (2-4) % Baso % (Auto) (0-2) % Neut # (Auto) (3104-0720) /uL Lymph # (Auto) (0883-1265) /uL [place] # (Auto) (0-900) /uL Eos # (Auto) (0-450) /uL Baso # (Auto) (0-100) /uL Sodium (137-145) mmol/L Potassium (3.4-5.1) mmol/L Chloride (98-107) mmol/L Carbon Dioxide (22-32) mmol/L BUN (9-20) mg/dL Creatinine (0.66-1.25) mg/dL Estimated GFR (>60) mL/min BUN/Creatinine Ratio (6-22) Glucose (80-110) mg/dL Lactate 2.6 H 1.6 (0.7-2.1) mmol/L Calcium (8.4-10.2) mg/dL Total Bilirubin (0.2-1.3) mg/dL AST (17-59) IU/L ALT (<50) IU/L Alkaline Phosphatase (38-126) U/L Total Creatine Kinase (55-170) U/L CK-MB (CK-2) CK-MB (CK-2) Rel Index Troponin I (0.01-0.034) ng/mL NT-Pro-B Natriuret Pep (<450) pg/mL Total Protein (6.3-8.2) g/dL Albumin (3.5-5.0) g/dL Globulin (1.7-4.1) g/dL Albumin/Globulin Ratio (1.0-2.8) Lipase (23-300) U/L Procalcitonin Cancelled (<0.5) ng/mL SARS-CoV-2 (PCR) (Negative) Imaging Data CT scan - head: Radiologist's Impression: [address] [place], [place] [id number] CT Scan Report Signed Patient: Teja Gage MR#: [id number] : 1935 Acct:[id number] Age/Sex: 86 / M Date of Service: 09/25/21 Loc: ED Accession Number: [id number] ?? Procedure: CT head/brain wo con Ordering Provider: Sharda Simmons D.O. PROCEDURE:? CT HEAD/BRAIN WO CON ? INDICATIONS:? hit head on anticoagulation ? TECHNIQUE:? Noncontrast 4.5 mm thick angled axial sections acquired from the foramen magnum to the vertex, with coronal and sagittal reformats.? For radiation dose reduction, the following was used:? automated exposure control, adjustment of mA and/or kV according to patient size.? ? COMPARISON:? [facility], CT, CT ANGIO HEAD AND NECK, 09/12/2021, 16:42.? [facility], MR, MR HEAD/BRAIN WO/W CON, 09/13/2021, 8:11. ? FINDINGS:? Image quality:? Excellent.? ? CSF spaces:? Basal cisterns are patent.? No extra-axial fluid collections.? The ventricles are symmetric in size and shape.? ? Brain:? No intracranial bleeds or masses.? There is cerebral volume loss for age, with resultant ventricular and sulcal prominence.? There are periventricular and deep white matter chronic small vessel ischemic changes.? A right basal ganglia remote lacunar infarct can be seen, as on series 2, image 14. There is intracranial internal carotid artery atherosclerosis.? ? Skull and face:? Calvarium and visualized facial bones appear intact, without suspicious lesions.? ? Sinuses:? Visualized sinuses and mastoids are clear.? ? ? IMPRESSION:? Negative for acute hemorrhage. ? Note: Case discussed by telephone with Dr. Simmons at 2:17 p.m. [place] time on September 25, 2021.? ? ? Dictated by: Aaron Garvin M.D. on 09/25/2021 at 14:15 ? ? Approved by: Aaron Garvin M.D. on 09/25/2021 at 14:18 ? Chest x-ray: Radiologist's Impression: XRay Report Signed Patient: Teja Gage MR#: [id number] : 1935 Acct:[id number] Age/Sex: 86 / M Date of Service: 09/25/21 Loc: ED Accession Number: [id number] ?? Procedure: XR chest 1V Ordering Provider: Sharda Simmons D.O. PROCEDURE:? XR CHEST 1V ? INDICATIONS:? can't swallow ? TECHNIQUE:? One view of the chest was acquired.? ? COMPARISON:? [facility], CR, XR CHEST 1V, 09/12/2021, 16:15. ? FINDINGS:? ? Surgical changes and devices:? None.? ? Lungs and pleura:? There is an overall appearance of increased pulmonary vascularity.? Blunting the costophrenic angles are unchanged.? Elevation of the left hemidiaphragm is stable.? Mild appearance of linear opacities is noted within the left base. ? Mediastinum:? Mediastinal contours appear normal.? Heart size is enlarged. ? Bones and chest wall:? No suspicious bony lesions.? Overlying soft tissues appear unremarkable.? ? IMPRESSION:? Linear left lower lobe opacities suggestive atelectasis. ? ? Dictated by: Amy Godinez M.D. on 09/25/2021 at 15:37 ? ? ECG Data Interpretation: Atrial fibrillation rate 113 days ago as the changes mild artifact noted MDM Narrative Medical decision making narrative: Patient is seen unable to manage his own secretions at this time. Complaining of severe throat pain he is given morphine which does seem to help in calm him down. CT is negative no focal deficits. He is actually awake and alert appropriate but really unable to manage secretions. He has no dysphagia from his stroke. No significant swelling. Uvula and hard palate appear normal no sign of epiglottitis. Patient and are requesting feeding to. Dr. Shelton consult in regards to feeding tube however he said at this time be very aggressive about a PEG tube but does recommend a Dobbhoff tube. Patient is at risk for aspiration. He has mild leukocytosis of 11 with a states that he had a low-grade fever otherwise afebrile here. Lactate initially elevated at 3.2 unclear for is from distress versus infection. 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
[2021-09-25 15:05] LABS: COVID19 -Nasal RAPID Negative (Negative)
[2021-09-25 15:07] LABS: Lactate (Lactic Acid) 3.2 mmol/L (0.7-2.1)
[2021-09-25 15:08] LABS: Alanine Aminotransferase 24 IU/L (<50); Albumin 4.1 g/dL (3.5-5.0); Albumin Globulin Ratio 1.2 (1.0-2.8); Alkaline Phosphatase 101 U/L (38-126); Aspartate Aminotransferase 31 IU/L (17-59); BUN Creatinine Ratio 23.5 (6-22); Bilirubin Total 1.9 mg/dL (0.2-1.3); Blood Urea Nitrogen 27 mg/dL (9-20); Calcium 8.8 mg/dL (8.4-10.2); Carbon Dioxide 24 mmol/L (22-32); Chloride 98 mmol/L (98-107); Creatine Kinase 38 U/L (55-170); Estimated Glomerular Filt Rate > 60 mL/min (>60); Globulin 3.3 g/dL (1.7-4.1); Glucose 174 mg/dL (80-110); HEMOLYSIS 32 (0-50); Lipase 76 U/L (23-300); Potassium 4.7 mmol/L (3.4-5.1); Sodium 132 mmol/L (137-145); Total Protein 7.4 g/dL (6.3-8.2)
[2021-09-25] MEDS: SODIUM CHLORIDE 0.9% 1,000 ML 150 ML IV (15:15)
[2021-09-25 15:18] LABS: NT-proBNP (BNP-Adult 18+) 1710 pg/mL (<450)
[2021-09-25 15:20] LABS: Troponin I < 0.012 ng/mL (0.01-0.034)
[2021-09-25 15:26] LABS: Procalcitonin 0.08 ng/mL (<0.5)
[2021-09-25 16:07] LABS: Lactate (Lactic Acid) 2.6 mmol/L (0.7-2.1)
[2021-09-25 16:52] LABS: Reflexed Lactate in 2 Hours Y
[2021-09-25] MEDS: MORPHINE 2 MG/ML INJ IV (17:24)
[2021-09-25 17:40] LABS: Reflexed Lactate in 2 Hours Y
[2021-09-25 18:42] LABS: Lactate 2HR (Lactic Acid Rflx) 1.6 mmol/L (0.7-2.1)
[2021-09-25] MEDS: levoFLOXacin 750 MG/150 ML PIGGYBACK 100 MG IV (19:44)
--- NOTE | 2021-09-25 20:50 | P.HP_ITS ---
History of Present Illness History of Present Illness Date Patient Seen: 09/25/21 Time Patient Seen: 20:50 Chief complaint: can't swallow, dehydrated, had a stroke end of Aug Narrative: Teja Gage is a pleasant 86 y.o. 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 He and his live on [facility] and have not been able to access therapy resources since his discharge. He returns today due to worsening dysphagia where he is unable to eat at all without aspirating per his . He had residual aphasia, was on a mechanical soft diet and for the past week has been unable to eat at all due to choking and throat pain. , Vielka provides most of the history. States he lost approximately 30 lbs since his stroke and 10 lbs in the last week due to not being able to eat or drink. Patient has not been able to take his medications since last night and is due for injectable methotrexate on Tuesday. She is requesting a feeding tube and placement in a SNF. During the patient's last day for the lacunar CVA he was discharged on warfarin for atrial fibrillation but was changed over to apixaban by his PCP. Brain CT and CT MRI of the head neck done today were both negative for any new evidence of CVA infarcts. He is afebrile, blood pressure 115/72, heart rate 121, respiratory rate 26, oxygen saturation of 94% on room air, he weighs 87.1 kg with a BMI of 27.5. Has a mildly elevated white count at 11.3 RBC 4.45 platelet count 289 he has a mild left shift and 9700 sodium is 132 glucose 174 his total bilirubin is elevated at 1.9 proBNP is 1710 procalcitonin is negative and COVID-19 PCR is negative. Patient History Medical History (Updated 09/25/21 @ 21:36 by LUIS Guy) Age related cataract Ankle pain Anticoagulation goal of INR 2 to 3 Atrial fibrillation Atrial fibrillation Benign prostatic hyperplasia Chicken pox Cholelithiasis Chronic anticoagulation Chronic back pain COPD (chronic obstructive pulmonary disease) Gout Hearing loss Hemorrhoid History of gastric ulcer History of tobacco use Hyperlipidemia Hypertension Measles Mumps Obesity Osteoarthritis Pericarditis 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 Tinnitus Surgical History Anesthesia History of ankle surgery (~1965) History of appendectomy (~2018) History of cataract removal with insertion of prosthetic lens History of laparotomy (~1999) History of tonsillectomy (~1944) Family & Social History Family History Mother Hypertension Heart disease Diabetes mellitus Hyperlipidemia Father Hypertension Hyperlipidemia Grandmother Pneumonia Social History: household members spouse Safety & Behavioral: Feels Safe in Current Yes Environment Been Physically Hurt or No Threatened By a Person Tobacco & Substance use: Smoking Status Former smoker alcohol intake former alcohol intake frequency holiday/special occasion Substance Use Type does not use Meds Home Medications and Allergies Home Medications Medication Instructions Recorded Confirmed Type ascorbic acid (vitamin C) 500 mg 500 mg PO BID 05/04/18 09/25/21 History tablet methotrexate sodium (PF) 25 mg/mL 1 ml IM QWEEK 05/04/18 09/25/21 History injection solution multivitamin (One Daily 1 tab PO DAILY 05/04/18 09/25/21 History Multivitamin) gabapentin 100 mg capsule 100 mg PO TID 06/05/19 09/25/21 History albuterol sulfate 90 mcg/actuation 2 puff INHALATION Q4H PRN gram 11/07/20 09/25/21 History aerosol inhaler finasteride 5 mg tablet 5 mg PO DAILY #90 tab 03/31/21 09/25/21 Rx allopurinol 300 mg tablet 300 mg PO DAILY #90 tab 06/03/21 09/25/21 Rx lovastatin 40 mg tablet 40 mg PO QPM #90 tab NS 06/03/21 09/25/21 Rx metoprolol succinate 100 mg 100 mg PO DAILY #90 tab 06/03/21 09/25/21 Rx tablet,extended release 24 hr tamsulosin 0.4 mg capsule (Flomax) 0.8 mg PO QPM #180 cap 06/03/21 09/25/21 Rx acetaminophen 500 mg tablet 1,000 mg PO TID PRN tab 08/25/21 09/25/21 History (Tylenol Extra Strength) amlodipine 10 mg tablet 10 mg PO DAILY 08/25/21 09/25/21 History losartan 100 mg tablet 100 mg PO DAILY 08/25/21 09/25/21 History magnesium chloride 64 mg PO DAILY tab 08/25/21 09/25/21 History spironolactone 25 mg tablet 25 mg PO DAILY 08/25/21 09/25/21 History torsemide 20 mg tablet 20 mg PO DAILY #90 tab 08/25/21 09/25/21 Rx budesonide-formoterol HFA 80 2 puff INHALATION BID #3 unit 09/02/21 09/25/21 Rx mcg-4.5 mcg/actuation aerosol inhaler (Symbicort) prednisone 5 mg tablet 5 mg PO BEDTIME 09/12/21 09/25/21 History apixaban 5 mg tablet (Eliquis) 5 mg PO BID #180 tab 09/17/21 09/25/21 Rx famotidine 40 mg tablet (Pepcid) 40 mg PO BEDTIME #90 tab 09/23/21 09/25/21 Rx lidocaine HCl 2 % mucosal solution See Rx Instructions MUCOUS 09/23/21 09/25/21 Rx (Lidocaine Viscous) MEMBRANE BID #100 ml clotrimazole 10 mg yuliya 10 mg MUCOUS MEMBRANE 5XD #35 tab 09/25/21 09/25/21 Rx hydrocodone 5 mg-acetaminophen 300 1 tab PO Q4-6H PRN #30 tab 09/25/21 09/25/21 Rx mg tablet Allergies Allergy/AdvReac Type Severity Reaction Status Date / Time latex [LATEX] Allergy Mild Rash Verified 09/25/21 14:27 Review of Systems Review of Systems Narrative: Continues to have throat pain, difficulty swallowing, copious secretions and unable to manage, reported mild temperature, rest of review of systems is negative. Exam Vital Signs (past 8 hours): - 09/25/21 14:19 09/25/21 15:08 09/25/21 15:10 Temperature 98.4 F Pulse Rate 110 H 120 H 117 H Respiratory Rate 16 36 H 34 H Blood Pressure 128/63 126/65 Pulse Oximetry 97 80 L 98 09/25/21 15:30 09/25/21 16:00 09/25/21 16:30 Temperature Pulse Rate 114 H 119 H 125 H Respiratory Rate 27 H 32 H 44 H Blood Pressure 124/65 138/67 Pulse Oximetry 96 96 96 09/25/21 16:31 09/25/21 17:00 09/25/21 17:30 Temperature Pulse Rate 124 H 127 H 120 H Respiratory Rate 33 H 36 H 32 H Blood Pressure 117/74 118/62 129/59 L Pulse Oximetry 96 95 95 09/25/21 18:00 09/25/21 18:30 Temperature Pulse Rate 117 H 121 H Respiratory Rate 29 H 26 H Blood Pressure 135/83 115/72 Pulse Oximetry 94 94 Oxygen Delivery Method Room Air Narrative Exam Narrative: Gen: Alert, oriented, chronically ill-appearing 86y.o. male, NAD HEENT: normocephalic, atraumatic, conjunctiva clear, sclera non-icteric, oral mucosa pink and moist, copious secretion Neck: supple, full ROM, no JVD, trachea is midline Resp: Lungs with bilateral rales, non-labored breathing CV: RRR, no murmur or rubs Abd: soft, non-tender, normoactive BTs Skin: Multiple bruises on his right shoulder and back, no lesions or rashes, dry and intact Neuro: Alert and oriented X 4 w/no focal deficits. Speech clear and coherent. Extremities: moves all 4 extremities, is ambulatory, negative Carlton?s sign Psyche: normal mood and affect. Objective Labs Result Diagrams: 09/25/21 14:44 09/25/21 14:44 Labs: Laboratory Results - last 24 hr 09/25/21 09/25/21 09/25/21 14:44 14:44 14:44 WBC 11.3 H RBC 4.45 L Hgb 14.7 Hct 42.8 MCV 96.2 MCH 33.0 MCHC 34.3 RDW 16.5 H Plt Count 289 Neut % (Auto) 86.0 H Lymph % (Auto) 4.0 L [place] % (Auto) 8.7 Eos % (Auto) 0.9 L Baso % (Auto) 0.4 Neut # (Auto) 9700 H Lymph # (Auto) 500 L [place] # (Auto) 1000 H Eos # (Auto) 100 Baso # (Auto) 0 Sodium 132 L Potassium 4.7 Chloride 98 Carbon Dioxide 24 BUN 27 H Creatinine 1.15 Estimated GFR > 60 BUN/Creatinine Ratio 23.5 H Glucose 174 H Lactate Calcium 8.8 Total Bilirubin 1.9 H AST 31 ALT 24 Alkaline Phosphatase 101 Total Creatine Kinase 38 L CK-MB (CK-2) TNP CK-MB (CK-2) Rel Index TNP Troponin I < 0.012 NT-Pro-B Natriuret Pep 1710 H Total Protein 7.4 Albumin 4.1 Globulin 3.3 Albumin/Globulin Ratio 1.2 Lipase 76 Procalcitonin SARS-CoV-2 (PCR) 09/25/21 09/25/21 09/25/21 14:44 14:44 14:44 WBC RBC Hgb Hct MCV MCH MCHC RDW Plt Count Neut % (Auto) Lymph % (Auto) [place] % (Auto) Eos % (Auto) Baso % (Auto) Neut # (Auto) Lymph # (Auto) [place] # (Auto) Eos # (Auto) Baso # (Auto) Sodium Potassium Chloride Carbon Dioxide BUN Creatinine Estimated GFR BUN/Creatinine Ratio Glucose Lactate 3.2 H Calcium Total Bilirubin AST ALT Alkaline Phosphatase Total Creatine Kinase CK-MB (CK-2) CK-MB (CK-2) Rel Index Troponin I NT-Pro-B Natriuret Pep Total Protein Albumin Globulin Albumin/Globulin Ratio Lipase Procalcitonin 0.08 SARS-CoV-2 (PCR) Negative 09/25/21 09/25/21 09/25/21 15:36 15:36 18:08 WBC RBC Hgb Hct MCV MCH MCHC RDW Plt Count Neut % (Auto) Lymph % (Auto) [place] % (Auto) Eos % (Auto) Baso % (Auto) Neut # (Auto) Lymph # (Auto) [place] # (Auto) Eos # (Auto) Baso # (Auto) Sodium Potassium Chloride Carbon Dioxide BUN Creatinine Estimated GFR BUN/Creatinine Ratio Glucose Lactate 2.6 H 1.6 Calcium Total Bilirubin AST ALT Alkaline Phosphatase Total Creatine Kinase CK-MB (CK-2) CK-MB (CK-2) Rel Index Troponin I NT-Pro-B Natriuret Pep Total Protein Albumin Globulin Albumin/Globulin Ratio Lipase Procalcitonin Cancelled SARS-CoV-2 (PCR) Assessment & Plan Assessment & Plan narrative: Teja Gage is placed into observation for an aspiration pneumonia, further assessment by speech therapy regarding his swallowing difficulties and eventual referral to ENT for laryngoscopy to assess his throat pain and dysphagia. 1. Aspiration pneumonia, acute, present on admission * He has been started on IV Levaquin 750 mg once daily 2. Progressive dysphagia secondary to CVA, acute, present on admission * Patient was to have had follow-up with ENT and that had not been arranged prior to his previous discharge * I have placed physician consultation request to ENT however it is unlikely they will see him until Tuesday. He has seen Dr. Lew in the past for an unrelated conditions so he is a is dab which patient at the ENT clinic. * Consult with speech therapy * Based on speech therapy recommendations will consider feeding tube either a Dobbhoff or abdominal feeding tube * Patient has been for via did with a Yankauer device to manage his secretions 3. Recent history of a acute and subacute bilateral parietal and frontal CVA likely embolic, chronic * Patient was to have started outpatient physical therapy and speech therapy however this is not been done 4. Chronic diastolic heart failure recently on warfarin anticoagulation which was changed over to apixaban * Due to the patient's inability to swallow, he will need to have injectable VTE prophylaxis with enoxaparin 5. COPD, chronic * He is written for albuterol and DuoNeb nebulized inhalation therapy 6. Frequent falls resulting in significant bruising of the upper extremities * Apparently the patient was having syncopal episodes associated with choking. He will be put on fall precautions while in the hospital 7. Polymyalgia rheumatica, chronic * Continue injectable methotrexate which he will need on Tuesday VTE Prophylaxis: Wells risk score 3 Enoxaparin 40 mg subQ once daily Bilateral SCDs Patient is placed into observation as his stay is not expected to exceed 2 midnights. FEN: IV fluids: NS at 100 ml/hour, diet: NPO until cleared by Speech, labs: CBC, C/BMP, liver enzymes, Mag, PT/INR Consultants Dr. Khan, ENT, care and involvement in the patient?s care is appreciated. Dispo: unknown at this time Code status: Limited code, intubation okay as discussed with the patient who identifies his , Fareed as his surrogate and POA. [X] I have utilized all available immediate resources to obtain, update, or review of the patient's current medications COVID-19 COVID-19 status: Negative Result date/Date tested (Pos, Neg/Pending): 09/25/21 Time Spent With Patient Critical Care time: I spent a total of [] minutes of critical care time on this patient's care today; this time is exclusive of procedural time. Scores Wells' Criteria for PE Clinical signs and symptoms of DVT: No PE is #1 Dx or equally likely: No Heart rate > 100: Yes Immobilization at least 3 days or surg in previous 4 weeks: Yes History of PE or DVT: No Hemoptysis: No Malignancy w/Treatment within 6 months or palliative: No Wells' PE Score total: 3.0 Quality VTE Deep Vein Thrombosis/Pulmonary Embolism Present on Admission: No MIPS - Admit I confirm the patient?s Advance Care Plan is present, Code status is documented, Surrogate decision maker is in patient?s record [If Yes, STOP here]: Yes MIPS - DC The patient has current or prior documentation of left ventricular ejection fraction (LVEF) less than 40%, or moderate or severely depressed left ventricular systolic function.: No
[2021-09-25 21:35] LABS: Hemoglobin A1C% w Est Avg Glu 7.7 % (4.0-6.0)
[2021-09-25 21:58] LABS: Thyroid Stimulating Hormone 1.23 uIU/mL (0.47-4.68)
[2021-09-25] MEDS: SODIUM CHLORIDE 0.45% 1,000 ML 100 ML IV (22:33)
[2021-09-25 23:03] LABS: Alanine Aminotransferase 21 IU/L (<50); Albumin 3.4 g/dL (3.5-5.0); Albumin Globulin Ratio 1.2 (1.0-2.8); Alkaline Phosphatase 84 U/L (38-126); Aspartate Aminotransferase 22 IU/L (17-59); Bilirubin Total 1.7 mg/dL (0.2-1.3); Bilirubin Unconjugated 1.3 mg/dL (0.0-1.1); Globulin 2.8 g/dL (1.7-4.1); HEMOLYSIS < 15 (0-50); Total Protein 6.2 g/dL (6.3-8.2)
[2021-09-25] MEDS: ACETAMINOPHEN 650 MG SUPP PR (23:44)
[2021-09-26 03:40] VITALS: BP 108/57; PULSE 105; RESP 18; TEMP 36.6; O2SAT 94
[2021-09-26 06:12] LABS: Add Manual Diff / Slide Review NO; Basophils Absolute Auto 100 /uL (0-100); Basophils Percent Auto 0.6 % (0-2); Eosinophils Absolute Auto 0 /uL (0-450); Eosinophils Percent Auto 0.2 % (2-4); Hematocrit 37.5 % (41-53); Hemoglobin 12.9 g/dL (13.5-17.5); Lymphocytes Absolute Auto 300 /uL (1100-4500); Lymphocytes Percent Auto 3.1 % (25-40); Mean Corpuscular HGB Conc 34.4 % (30-36); Mean Corpuscular Hemoglobin 33.1 PG (26-34); Mean Corpuscular Volume 96.3 fL (80-100); Monocytes Absolute Auto 1200 /uL (0-900); Monocytes Percent Auto 11.6 % (3-14); Neutrophils Absolute Auto 8900 /uL (1500-7000); Neutrophils Percent Auto 84.5 % (50-75); Platelet Count 224 X10^3/uL (150-400); Red Blood Cell Count 3.89 X10^6/uL (4.5-5.9); Red Cell Distribution Width 16.6 % (11.6-14.8); White Blood Cell Count 10.5 X10^3/uL (4.5-11.0)
[2021-09-26 06:24] LABS: Alanine Aminotransferase 19 IU/L (<50); Albumin 3.2 g/dL (3.5-5.0); Albumin Globulin Ratio 1.2 (1.0-2.8); Alkaline Phosphatase 77 U/L (38-126); Aspartate Aminotransferase 23 IU/L (17-59); Bilirubin Total 1.8 mg/dL (0.2-1.3); Bilirubin Unconjugated 1.3 mg/dL (0.0-1.1); Globulin 2.7 g/dL (1.7-4.1); HEMOLYSIS < 15 (0-50); Total Protein 5.9 g/dL (6.3-8.2)
[2021-09-26 06:25] LABS: BUN Creatinine Ratio 21.2 (6-22); Blood Urea Nitrogen 21 mg/dL (9-20); Calcium 8.1 mg/dL (8.4-10.2); Carbon Dioxide 25 mmol/L (22-32); Chloride 100 mmol/L (98-107); Estimated Glomerular Filt Rate > 60 mL/min (>60); Glucose 128 mg/dL (80-110); HEMOLYSIS < 15 (0-50); Magnesium 1.9 mg/dL (1.6-2.3); Potassium 4.3 mmol/L (3.4-5.1); Sodium 132 mmol/L (137-145)
[2021-09-26 07:52] VITALS: BP 107/64; PULSE 106; RESP 18; TEMP 37.2; O2SAT 97
[2021-09-26] MEDS: METOPROLOL TARTRATE 5 MG/5 ML INJ IV ×2 (07:57→15:28)
[2021-09-26] MEDS: ENOXAPARIN 40 MG/0.4 ML SYRINGE SUBCUT (09:05)
--- NOTE | 2021-09-26 10:53 | ST.IPCSEOM ---
Visit Care Team Role Provider Type Michelet Irby MD Primary Care Provider Physician Specialty: Family Practice Address: [address] [place] [address], [id number] Email: [email or web address] Kirit Khan MD Other Providers Physician Specialty: Ear, Nose, Throat Address: [address] [place] [address], [id number] Email: [email or web address] Bradly Landa MD Family Provider Non-Staff Specialty: Family Practice Address: [address] [place] [address], [id number] Email: Sharda Simmons DO Emergency Provider Physician Referring Provider Specialty: Emergency Medicine Address: [address] [place] [address], [id number] Email: [email or web address] LUIS Guy Admit Provider Physician Attending Provider Specialty: Internal Medicine Address: [address] [place] [address], [address] Email: [email or web address] Past Medical History (Last Updated 09/25/21 @ 21:36 by LUIS Guy) Age related cataract (Medical) Ankle pain (Medical) Anticoagulation goal of INR 2 to 3 (Medical) Atrial fibrillation (Medical) Atrial fibrillation (Medical) Benign prostatic hyperplasia (Medical) Chicken pox (Medical) Cholelithiasis (Medical) Chronic anticoagulation (Medical) Chronic back pain (Medical) COPD (chronic obstructive pulmonary disease) (Medical) Gout (Medical) Hearing loss (Medical) Hemorrhoid (Medical) History of ankle surgery (Medical ~1965) Crushed left ankle History of appendectomy (Medical ~2018) Burst History of cataract removal with insertion of prosthetic lens (Medical) History of gastric ulcer (Medical) History of laparotomy (Medical ~1999) Repair perforated gastric ulcer History of tobacco use (Medical) History of tonsillectomy (Medical ~1944) Hyperlipidemia (Medical) Hypertension (Medical) Measles (Medical) Mumps (Medical) Obesity (Medical) Osteoarthritis (Medical) Pericarditis (Medical) Polymyalgia rheumatica (Medical) Sequela of lacunar infarction (Medical) Sequela of lacunar infarction (Medical) Tinnitus (Medical) Speech-Language Pathology Swallow Evaluation 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 He and his live on [facility] and have not been able to access therapy resources since his discharge. He returns today due to worsening dysphagia where he is unable to eat at all without aspirating per his . He had residual aphasia, was on a mechanical soft diet and for the past week has been unable to eat at all due to choking and throat pain. , Vielka provides most of the history. States he lost approximately 30 lbs since his stroke and 10 lbs in the last week due to not being able to eat or drink . Patient has not been able to take his medications since last night and is due for injectable methotrexate on Tuesday. She is requesting a feeding tube and placement in a SNF. During the patient's last day for the lacunar CVA he was discharged on warfarin for atrial fibrillation but was changed over to apixaban by his PCP. Brain CT and CT MRI of the head neck done today were both negative for any new evidence of CVA infarcts. Has a mildly elevated white count at 11.3. Subjective Observations Pt was asleep in bed when FUNERAL LIMOUSINE DRIVER entered the room. Pt was arousable and agreeable to assessment. Pt's was not present initially but did enter room at the end so this FUNERAL LIMOUSINE DRIVER was able to discuss results and recommendations with both. Pt was self suctioning independently as needed and reported that he felt scared to attempt PO trials, noting, If I from this, I want my here. His voice is noted to be very raspy, which he reports is new for him. Pt noted he has had an MBSS study at [facility] and they noted to not have thin liquids, not have thick liquids, no pills. Reported by Patient Other Symptoms Choking,Coughing,Difficulty swallowing liquids,Difficulty swallowing pills,Difficulty swallowing solids,Food gets stuck,History of aspiration or pneumonia,Pain on swallowing, Weight loss,Other Current Diet Nothing by mouth Patient Questionnaire No Objective Assessment Mental Status Alert,Responsive,Cooperative Oral Integrity Excessive saliva/Drooling,Oral residue Dentition Decay Lip Function Moderate impairment Observation of Lips at Rest Symmetrical Pucker Reduced range of motion, Reduced strength Lip Retraction Reduced range of motion Alternating Pucker/Lip Retraction Reduced range of motion Tongue Function Moderate impairment Tongue Protrusion Reduced range of motion, Reduced strength Tongue Retraction Reduced range of motion, Reduced strength Tongue Lateralization Reduced range of motion, Reduced strength Jaw Function Within normal limits Observations of Jaw at Rest Within normal limits Jaw Opening Within normal limits Jaw Closing Within normal limits Jaw Lateralization Within normal limits Jaw Protrusion Within normal limits Jaw Retraction Within normal limits Hard/Soft Palate Function Moderate impairment Observations of Hard/Soft Palate Reduced strength/ROM of soft palate elevation Nasality Within normal limits Phonation Harsh,Strained/Strangled, Reduced loudness Respiratory Sufficiency Within normal limits Comment Pt displays overall weaknesses in the oral structure that impact his speech and swallowing abilities at this time. Food and Liquid Trials Position During Assessment Upright (90 degrees) Oral Impairment Moderately impaired Oral Phase Comments Look at OME findings for oral phase comments. Pharyngeal Impairment Profoundly impaired Pharyngeal Phase Comments FUNERAL LIMOUSINE DRIVER performed laryngeal palpation prior to any PO trials. Pt noted he cannot swallow. When FUNERAL LIMOUSINE DRIVER prompted to attempt, little to no movement was noted in the pharyngeal cavity. Pt appeared to actively be trying to swallow. Due to little to no movement noted, no PO trials were administered at this time due to pt's risk of aspiration. Fatigue/Endurance Moderate fatigue Comment Pt reported to be very tired and wanted to rest. Prior to FUNERAL LIMOUSINE DRIVER exiting the room, the pt was asleep. Findings Swallowing Function Oropharyngeal phase dysphagia Severity of Swallow Impairment Severely impaired Contributing Factors to Swallow Impaired oral-pharyngeal Impairment transport,Impaired velopharyngeal closure/ coordination,Delayed swallow initiation,Reduced laryngeal excursion,Impaired airway protection,Excessive oral residue,Excessive pharyngeal residue Prognosis Guarded Based on History of aspiration/ aspiration pneumonia, Comorbidities,Duration of symptoms/severity Comment It appeared the swallowing difficulties have increased since discharge and the pt is now fearful of eating/drinking . Pt has also lost a significant amount of weight due to not being able to eat/ drink. Impact on Safety and Functioning Risk for aspiration,Risk for inadequate nutrition/hydration Recommendations Instrumental Assessment No Swallowing Treatment Yes Recommended Solids Nothing by Mouth Recommended Liquids Nothing by Mouth Other Recommendations Pt would be a candidate for alternative feeding (NG tube, PEG tube) at this time in order to get nutrition/ hydration needs met as well as working with therapy to target swallowing skills in hopes of the pt returning to safe PO intake in the future if possible. FUNERAL LIMOUSINE DRIVER went over recommendation with pt and his ; both were in agreement with the recommendations. FUNERAL LIMOUSINE DRIVER also went over some exercises (which pt attempted to try) and brought in handouts for the pt and his family. No other questions were noted prior to FUNERAL LIMOUSINE DRIVER leaving the room. Medication Recommendations Not Recommended by Mouth Discharge Recommendations senior care facility,ad terminal makeup operator care facility Referrals Recommended Referrals Dietary,Otolaryngology/ENT Education Patient/Caregiver Education Described results of evaluation,Patient expressed understanding of evaluation, Patient expressed agreement with goals & treatment plans, Family/caregivers expressed understanding of evaluation, Family/caregivers expressed agreement with goals & treatment plans,Patient expressed understanding of safety precautions,Patient expressed understanding of feeding recommendations,Family /caregivers expressed understanding of safety precautions,Family/caregivers expressed understanding of feeding recommendations, Patient requires further education/training,Family/ caregivers require further education/training Goals Short-term Goals Pt will participate in swallow therapy to target strengthening the oral and pharyngeal muscles. Pt and family will participate in further education re: alternative feeding methods, swallow therapy Long-term Goals Pt will be able to tolerate PO intake without overtly demonstrating s/sx of aspiration.
--- NOTE | 2021-09-26 11:29 | CM.DANOTE ---
DCP: Received case, EMR reviewed and met with patient. Introduced self and role to patient and spouse. Obtained information regarding patient's baseline prior to admission. Pt is an 86 year old male who admitted yesterday evening to the care of the Hospitalist team. PCP: Dr Michelet Irby Payer: [employer] Medicare MCR advantage Patient arrived at hospital via private vehicle secondary to having difficulty swallowing secretions as well as inability to swallow food or drink. Noted that patient was recently here for CVA and progressive dysphagia. He was discharged and was supposed to follow up with outpatient S.T. Pt has been diagnosed with aspiration pneumonia. Patient is currently on IV antibiotics. Met with patient and spouse Fareed in room. Pt is alert and oriented, resting in bed and noted to be frequently suctioning himself with yankauer suction. Spouse states that she is overwhelmed by his care at home and requires nearly every hour attention. At home, patient has been unable to eat or drink due to severe throat pain and aspiration and has lost significant weight. At patient's baseline, he uses FWW and assist with ADLs. Spouse is hopeful that patient can have a feeding tube and can go to [facility] if possible. In the meantime, she will work on securing home caregivers, Senior [employer] book to review. Her daughter is expected to arrive from [place] on Tuesday and will assist in looking for caregivers since the patient does have the finances for this. P: DCP to work on discharge plan. It is currently unknown if and when feeding tube is going to be placed but we will send over referral for them to review and will check to see if they accept his [facility]. Samira Chand RN, Profile Trimmer Discharge Planning/Care Management Discharge Assessment Start: 09/26/21 11:20 Freq: Status: Active Protocol: Document 09/26/21 11:21 (Rec: 09/26/21 11:28 [id number]) Discharge Planning Assessment Assigned Carton Repairer Samira Chand RN, Profile Trimmer Advance Directives? Yes Advance Directives on File Yes History Provided By Patient,Significant Other, Medical Record Has Patient been admitted in last 30 Yes days? Comment Patient recently here early September. Prior Living Arrangements House Comment Resides on [address] with spouse Household Members spouse Type of transporation used prior to Relies on Others admit Independent with ADL's No: states she helps him with all activities Is patient alert and oriented? Yes Needs Assistance With Bathing,Grooming,Meal Prep, Toileting,Managing Medications ,Home Chores / Shopping Caregiver for Another No DME Already Rented / Owned FWW / Walker Comment functionally independent with occ use of cane Patient/Family Preference [facility] Facility Comment Will send Referral to [facility] Barriers to Discharge Yes Comment Spoke with spouse who is not able to further manage his care at home, he requires frequent help. Patient may require feeding tube with skilled services post hospital . His will be looking for caregivers. Discharge Plan [facility] Facility Transportation Arrangement Facility Referrals Initiated [facility] If patient plan is SNF: Has PASSR been will attempt before discharge completed? Medicare Choice List Provided Yes SNF/HH Preference [facility] Has Agency SNF been contacted No Comment Plan to contact today. Whiteboard Updated in Patient Room with Yes name and ext. # of Carton Repairer Review Status In Process Next Review Type Continued Stay Review
[2021-09-26 11:38] VITALS: BP 139/76; PULSE 104; RESP 20; TEMP 37.3; O2SAT 95
[2021-09-26] MEDS: MORPHINE 2 MG/ML INJ IV ×3 (12:05→22:00)
--- NOTE | 2021-09-26 12:31 | CM.DPC ---
DCP Cont: Called Anahi at [facility], she is working in admissions this weekend, and updated her about patient. Let her know that patient and daughter will be looking for home caregivers while patient is in skilled. Patient could possibly be getting feeding tube. Faxed her over the referral. Included face sheet, H&P, and speech therapy note. P: DCP to continue to follow, referral was sent over to [facility]. Fatou Espana RN/Ham Passer
--- NOTE | 2021-09-26 16:05 | PM.PN.1 ---
Subjective Subjective Date Patient Seen: 09/26/21 Interval history: THIS IS A 86-YEAR-OLD MALE WITH A RECENT CVA. CV WAS REPORTED AT THE END OF AUGUST OF THIS YEAR. HE HAS SIGNIFICANT DYSPHAGIA A RESULT. OF THE STROKE BLOOD TO THE HOSPITAL WITH DIFFICULTY SWALLOWING WELL INTRAVASCULAR FLUID DEPLETION FAILLED SWALLOW EVAL ON 09/26. AGREEABLE FOR A PEG TUBE FOR TEMPORARY FILLING TODAY PATIENT HAS DIFFICULTY DAY SWALLOWING BUT ABLE TO SPEAK DENIES ANY NAUSEA OR VOMITING REPORTED PAIN TO HIS THROAT AREA. PAIN WAS DESCRIBED A NERVE TYPE OF PAIN NO PRIOR INJURY REPORTED PATIENT CONTINUE TO ASK FOR MORE MORPHINE THAT HE IS RECEIVING RIGHT NOW SPOKE TO PATIENT'S AT BEDSIDE QUESTIONS ANSWERED TO HER SATISFACTION Exam Vital Signs (past 8 hours): - 09/26/21 11:38 Temperature 99.1 F Pulse Rate 104 H Respiratory Rate 20 Blood Pressure 139/76 Pulse Oximetry 95 Oxygen Delivery Method Room Air Oxygen Flow Rate 0 Narrative Exam Narrative: NO ACUTE DISTRESS. PATIENT IS ALERT ORIENTED X3. HEAD ATRAUMATIC NORMOCEPHALIC NECK : SUPPLE WITHOUT ADENOPATHY NO CAROTID BRUITS EYE: EOMI, PERRLA, NORMAL CONJUNCTIVA; NO JAUNDICE CHEST: REGULAR RATE. NO RUBS. PMI IS NON DISPLACED. NO MURMURS; NORMAL S1-S2 PULMONARY: DECREASED BS OVER THE BASES. MILD BIBASILAR CRACKLES NOTED; NO INCREASED DULLNESS TO PERCUSSION ABDOMEN: OBESE BUTSOFT. NONTENDER. NONDISTENDED. BOWEL SOUNDS ARE PRESENT IN ALL 4 QUADRANTS. NO MASS. EXTREMITIES: 2+ NONPITTING EXTREMITY EDEMA.. NO CYANOSIS CLUBBING NOTED. NEURO: NO DIFFICULTY WITH SPEECH. DIFFICULTY WITH SWALLOWING APPRECIATED. NO NEUROLOGICAL DEFICITS TO THE EXTREMITIES. SENSATION INTACT TO ALL EXTREMITIES. MSK: NORMAL RANGE OF MOTION FOR AGE. NO JOINT EFFUSION. SKIN: NORMAL FOR ETHNICITY; NO ECCHYMOSIS. NO LESION. GOOD TURGOR.; NO RASHES : NORMAL EXTERNAL GENITALIA. PSYCH : ALERT AWAKE ORIENTED X3. MILDLY ANXIOUS. POOR INSIGHT Objective Labs Result Diagrams: 09/26/21 05:20 09/26/21 05:20 Labs: Laboratory Results - last 24 hr 09/25/21 09/25/21 09/25/21 14:48 14:48 15:36 WBC RBC Hgb Hct MCV MCH MCHC RDW Plt Count Neut % (Auto) Lymph % (Auto) [place] % (Auto) Eos % (Auto) Baso % (Auto) Neut # (Auto) Lymph # (Auto) [place] # (Auto) Eos # (Auto) Baso # (Auto) Sodium Potassium Chloride Carbon Dioxide BUN Creatinine Estimated GFR BUN/Creatinine Ratio Glucose Hemoglobin A1c 7.7 H Lactate 2.6 H Calcium Magnesium Total Bilirubin Conjugated Bilirubin Unconjugated Bilirubin AST ALT Alkaline Phosphatase Total Protein Albumin Globulin Albumin/Globulin Ratio TSH 1.23 09/25/21 09/25/21 09/26/21 18:08 22:45 05:20 WBC RBC Hgb Hct MCV MCH MCHC RDW Plt Count Neut % (Auto) Lymph % (Auto) [place] % (Auto) Eos % (Auto) Baso % (Auto) Neut # (Auto) Lymph # (Auto) [place] # (Auto) Eos # (Auto) Baso # (Auto) Sodium Potassium Chloride Carbon Dioxide BUN Creatinine Estimated GFR BUN/Creatinine Ratio Glucose Hemoglobin A1c Lactate 1.6 Calcium Magnesium Total Bilirubin 1.7 H 1.8 H Conjugated Bilirubin 0.0 0.0 Unconjugated Bilirubin 1.3 H 1.3 H AST 22 23 ALT 21 19 Alkaline Phosphatase 84 77 Total Protein 6.2 L 5.9 L Albumin 3.4 L 3.2 L Globulin 2.8 2.7 Albumin/Globulin Ratio 1.2 1.2 TSH 09/26/21 09/26/21 05:20 05:20 WBC 10.5 RBC 3.89 L Hgb 12.9 L Hct 37.5 L MCV 96.3 MCH 33.1 MCHC 34.4 RDW 16.6 H Plt Count 224 Neut % (Auto) 84.5 H Lymph % (Auto) 3.1 L [place] % (Auto) 11.6 Eos % (Auto) 0.2 L Baso % (Auto) 0.6 Neut # (Auto) 8900 H Lymph # (Auto) 300 L [place] # (Auto) 1200 H Eos # (Auto) 0 Baso # (Auto) 100 Sodium 132 L Potassium 4.3 Chloride 100 Carbon Dioxide 25 BUN 21 H Creatinine 0.99 Estimated GFR > 60 BUN/Creatinine Ratio 21.2 Glucose 128 H Hemoglobin A1c Lactate Calcium 8.1 L Magnesium 1.9 Total Bilirubin Conjugated Bilirubin Unconjugated Bilirubin AST ALT Alkaline Phosphatase Total Protein Albumin Globulin Albumin/Globulin Ratio [facility] Medical History (Updated 09/25/21 @ 21:36 by Geneva Oconnor, MERRY GO ROUND OPERATOR) Age related cataract Ankle pain Anticoagulation goal of INR 2 to 3 Atrial fibrillation Atrial fibrillation Benign prostatic hyperplasia Chicken pox Cholelithiasis Chronic anticoagulation Chronic back pain COPD (chronic obstructive pulmonary disease) Gout Hearing loss Hemorrhoid History of gastric ulcer History of tobacco use Hyperlipidemia Hypertension Measles Mumps Obesity Osteoarthritis Pericarditis 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 Tinnitus Surgical History Anesthesia History of ankle surgery (~1965) History of appendectomy (~2018) History of cataract removal with insertion of prosthetic lens History of laparotomy (~1999) History of tonsillectomy (~1944) Family History Mother Hypertension Heart disease Diabetes mellitus Hyperlipidemia Father Hypertension Hyperlipidemia Grandmother Pneumonia Social History marital status: household members: spouse occupational status: previously employed Smoking Status: Former smoker alcohol intake: former substance use type: does not use Assessment & Plan Assessment & Plan narrative: IMPRESSION DYSPHAGIA. SECONDARY TO CVA. INTRAVASCULAR FLUID DEPLETION. ON IV FLUID FOR NOW HYPERTENSION PER HISTORY. IV METOPROLOL POSSIBLE OPIOID SEEKING BEHAVIOR. NURSING TO BE AWARE ANEMIA. LIKELY OF CHRONIC DISEASE HYPONATREMIA. MILD PAROXYSMAL ATRIAL FIBRILLATION PER HISTORY BPH PER HISTORY COPD PER HISTORY. OVERWEIGHT. BMI OF 28 POLYMYALGIA RHEUMATICA PER HISTORY. OSTEOARTHRITIS PER HISTORY PLAN SPEECH THERAPY REQUESTED PATIENT TO REMAIN NPO PATIENT WILL NEED A PEG TUBE FOR ALTERNATIVE TO WHICH HE IS AGREEABLE TO WILL CONSULT SURGERY FOR RECOMMENDATIONS AND POSSIBLE PEG TUBE PLACEMENT IV FLUID ORDERED WHILE NPO. KCL WITH NORMAL SALINE HYPONATREMIA IS ALREADY EXHIBITED ALL LABS MONITOR CLOSELY FOR ANY SIGN OF FLUID OVERLOAD MONITOR LAB CLOSELY KIDNEY AND LIVER FUNCTION FAIRLY STABLE PATIENT HAS INCREASED SECRETIONS WILL ADD SCOPOLAMINE PATCH WELL NEEDED SUBLINGUAL ATROPINE MAINTAIN ASPIRATION PRECAUTION AT ALL TIMES DAILY LAB TO FOLLOW FOR NOW CONVERT HOME MEDS TO IV ROUTE IF POSSIBLE ADDITIONAL MANAGEMENT PER CLINICAL COURSE Time Spent With Patient Critical Care time: I spent a total of [] minutes of critical care time on this patient's care today; this time is exclusive of procedural time. Quality VTE Deep Vein Thrombosis/Pulmonary Embolism Present on Admission: No
[2021-09-26 16:15] VITALS: BP 124/68; PULSE 109; RESP 22; TEMP 37.3; O2SAT 93
[2021-09-26] MEDS: SCOPOLAMINE 1 PATCH TOP (16:29)
[2021-09-26] MEDS: KCL 20 MEQ IN NS 1,000 ML 100 MEQ IV (16:29)
[2021-09-26] MEDS: PANTOPRAZOLE 40 MG VIAL IV ×2 (16:30→20:44)
[2021-09-26] MEDS: KETOROLAC 30 MG/ML VIAL 15 MG IV (17:50)
[2021-09-26 19:30] VITALS: BP 114/63; PULSE 103; RESP 18; TEMP 36.8; O2SAT 93
[2021-09-26 23:35] VITALS: BP 113/63; PULSE 113; RESP 18; TEMP 37.3; O2SAT 94
[2021-09-27] VITALS (17 sets, daily range): BP systolic 102–151; BP diastolic 55–97; PULSE 96–146; RESP 18–48; TEMP 36.9–38; O2SAT 89–98
[2021-09-27] MEDS: KETOROLAC 30 MG/ML VIAL 15 MG IV ×3 (00:02→12:19)
[2021-09-27] MEDS: MORPHINE 2 MG/ML INJ IV ×3 (02:37→17:30)
[2021-09-27] MEDS: KCL 20 MEQ IN NS 1,000 ML 100 MEQ IV ×2 (02:42→13:50)
[2021-09-27] MEDS: METOPROLOL TARTRATE 5 MG/5 ML INJ IV ×4 (04:46→19:28)
[2021-09-27 05:04] LABS: Add Manual Diff / Slide Review NO; Basophils Absolute Auto 100 /uL (0-100); Basophils Percent Auto 1.2 % (0-2); Eosinophils Absolute Auto 100 /uL (0-450); Eosinophils Percent Auto 0.6 % (2-4); Hematocrit 40.7 % (41-53); Hemoglobin 13.5 g/dL (13.5-17.5); Lymphocytes Absolute Auto 400 /uL (1100-4500); Lymphocytes Percent Auto 3.9 % (25-40); Mean Corpuscular HGB Conc 33.1 % (30-36); Mean Corpuscular Hemoglobin 32.3 PG (26-34); Mean Corpuscular Volume 97.6 fL (80-100); Monocytes Absolute Auto 1000 /uL (0-900); Monocytes Percent Auto 9.1 % (3-14); Neutrophils Absolute Auto 8900 /uL (1500-7000); Neutrophils Percent Auto 85.2 % (50-75); Platelet Count 240 X10^3/uL (150-400); Red Blood Cell Count 4.17 X10^6/uL (4.5-5.9); Red Cell Distribution Width 16.8 % (11.6-14.8); White Blood Cell Count 10.4 X10^3/uL (4.5-11.0)
--- NOTE | 2021-09-27 05:19 | PC.NURSE ---
Pt step son is a doctor and would like participate in planning care of pt. Son would like to be called when Doctor is in room to discuss care.
[2021-09-27 05:24] LABS: Blood Urea Nitrogen 20 mg/dL (9-20); Calcium 8.6 mg/dL (8.4-10.2); Carbon Dioxide 22 mmol/L (22-32); Chloride 103 mmol/L (98-107); Estimated Glomerular Filt Rate > 60 mL/min (>60); Glucose 120 mg/dL (80-110); HEMOLYSIS < 15 (0-50); Potassium 4.6 mmol/L (3.4-5.1); Sodium 135 mmol/L (137-145)
--- NOTE | 2021-09-27 08:12 | PM.CN ---
History of Present Illness Consult details Date Patient Seen: 09/27/21 Chief complaint: can't swallow, dehydrated, had a stroke end of Aug Narrative: 86-year-old man who is admitted to the hospital for dysphagia. He had a stroke last month and subsequently has developed dysphagia, now unable to for swallow any of his medications or food. This finding was confirmed with swallow study. Percutaneous endoscopic gastrostomy tube (peg) is requested. No history of upper abdominal surgery. -congestive heart failure class 3 -COPD -AFib Meds Home Medications and Allergies Home Medications Medication Instructions Recorded Confirmed Type ascorbic acid (vitamin C) 500 mg 500 mg PO BID 05/04/18 09/25/21 History tablet methotrexate sodium (PF) 25 mg/mL 1 ml IM QWEEK 05/04/18 09/25/21 History injection solution multivitamin (One Daily 1 tab PO DAILY 05/04/18 09/25/21 History Multivitamin) gabapentin 100 mg capsule 100 mg PO TID 06/05/19 09/25/21 History albuterol sulfate 90 mcg/actuation 2 puff INHALATION Q4H PRN gram 11/07/20 09/25/21 History aerosol inhaler finasteride 5 mg tablet 5 mg PO DAILY #90 tab 03/31/21 09/25/21 Rx allopurinol 300 mg tablet 300 mg PO DAILY #90 tab 06/03/21 09/25/21 Rx lovastatin 40 mg tablet 40 mg PO QPM #90 tab NS 06/03/21 09/25/21 Rx metoprolol succinate 100 mg 100 mg PO DAILY #90 tab 06/03/21 09/25/21 Rx tablet,extended release 24 hr tamsulosin 0.4 mg capsule (Flomax) 0.8 mg PO QPM #180 cap 06/03/21 09/25/21 Rx acetaminophen 500 mg tablet 1,000 mg PO TID PRN tab 08/25/21 09/25/21 History (Tylenol Extra Strength) amlodipine 10 mg tablet 10 mg PO DAILY 08/25/21 09/25/21 History losartan 100 mg tablet 100 mg PO DAILY 08/25/21 09/25/21 History magnesium chloride 64 mg PO DAILY tab 08/25/21 09/25/21 History spironolactone 25 mg tablet 25 mg PO DAILY 08/25/21 09/25/21 History torsemide 20 mg tablet 20 mg PO DAILY #90 tab 08/25/21 09/25/21 Rx budesonide-formoterol HFA 80 2 puff INHALATION BID #3 unit 09/02/21 09/25/21 Rx mcg-4.5 mcg/actuation aerosol inhaler (Symbicort) prednisone 5 mg tablet 5 mg PO BEDTIME 09/12/21 09/25/21 History apixaban 5 mg tablet (Eliquis) 5 mg PO BID #180 tab 09/17/21 09/25/21 Rx famotidine 40 mg tablet (Pepcid) 40 mg PO BEDTIME #90 tab 09/23/21 09/25/21 Rx lidocaine HCl 2 % mucosal solution See Rx Instructions MUCOUS 09/23/21 09/25/21 Rx (Lidocaine Viscous) MEMBRANE BID #100 ml clotrimazole 10 mg yuliya 10 mg MUCOUS MEMBRANE 5XD #35 tab 09/25/21 09/25/21 Rx hydrocodone 5 mg-acetaminophen 300 1 tab PO Q4-6H PRN #30 tab 09/25/21 09/25/21 Rx mg tablet Allergies Allergy/AdvReac Type Severity Reaction Status Date / Time latex [LATEX] Allergy Mild Rash Verified 09/25/21 14:27 Exam Vital Signs (past 8 hours): - 09/27/21 02:45 09/27/21 03:30 09/27/21 05:00 Temperature 99.3 F Pulse Rate 109 H Respiratory Rate 18 Blood Pressure 106/55 L 102/64 Pulse Oximetry 97 Oxygen Delivery Method Room Air Oxygen Flow Rate 0 Narrative Exam Narrative: General elderly man alert oriented no acute distress. Hard of hearing Nonlabored respirations not on supplemental oxygen Abdomen soft nontender nondistended Objective Labs Result Diagrams: 09/27/21 04:45 09/27/21 04:45 Labs: Laboratory Results - last 24 hr 09/27/21 09/27/21 04:45 04:45 WBC 10.4 RBC 4.17 L Hgb 13.5 Hct 40.7 L MCV 97.6 MCH 32.3 MCHC 33.1 RDW 16.8 H Plt Count 240 Neut % (Auto) 85.2 H Lymph % (Auto) 3.9 L [place] % (Auto) 9.1 Eos % (Auto) 0.6 L Baso % (Auto) 1.2 Neut # (Auto) 8900 H Lymph # (Auto) 400 L [place] # (Auto) 1000 H Eos # (Auto) 100 Baso # (Auto) 100 Sodium 135 L Potassium 4.6 Chloride 103 Carbon Dioxide 22 BUN 20 Creatinine 1.00 Estimated GFR > 60 BUN/Creatinine Ratio 20.0 Glucose 120 H Calcium 8.6 Magnesium 2.0 PFSH Medical History Age related cataract Ankle pain Anticoagulation goal of INR 2 to 3 Atrial fibrillation Atrial fibrillation Benign prostatic hyperplasia Chicken pox Cholelithiasis Chronic anticoagulation Chronic back pain COPD (chronic obstructive pulmonary disease) Gout Hearing loss Hemorrhoid History of gastric ulcer History of tobacco use Hyperlipidemia Hypertension Measles Mumps Obesity Osteoarthritis Pericarditis 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 Tinnitus Surgical History Anesthesia History of ankle surgery (~1965) History of appendectomy (~2018) History of cataract removal with insertion of prosthetic lens History of laparotomy (~1999) History of tonsillectomy (~1944) Family History Mother Hypertension Heart disease Diabetes mellitus Hyperlipidemia Father Hypertension Hyperlipidemia Grandmother Pneumonia Social History marital status: household members: spouse occupational status: previously employed Tobacco & Substance Use Smoking Status: Former smoker alcohol intake: former substance use type: does not use Assessment & Plan Assessment and plan (1) 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 PEG requested. Procedure discussed with patient and his . Operative risks including bleeding, infection, mechanical device failure, risk of tube dislodgement, damage to surrounding structures need for open operation were discussed. Questions answered they are in agreement with this plan. -Scheduled for Thursday 09/28. -Hold AM Lovenox Thursday 09/28 Time Spent With Patient Critical Care time: I spent a total of [] minutes of critical care time on this patient's care today; this time is exclusive of procedural time.
[2021-09-27] MEDS: PANTOPRAZOLE 40 MG VIAL IV ×2 (08:46→20:50)
--- NOTE | 2021-09-27 14:05 | P.PN_ITS ---
Subjective Subjective Date Patient Seen: 09/27/21 Interval history: ?THIS IS A 86-YEAR-OLD MALE WITH A RECENT CVA. CVA REPORTED AT THE END OF AUGUST OF THIS YEAR. HE HAS SIGNIFICANT DYSPHAGIA A RESULT OF THE STROKE ?BLOOD TO THE HOSPITAL WITH? DIFFICULTY SWALLOWING WELL INTRAVASCULAR FLUID DEPLETION ?FAILLED? SWALLOW EVAL ON 09/26.? AGREEABLE? FOR A PEG TUBE FOR TEMPORARY FILLING ?TODAY NO CHEST PAIN. NO CHEST PALPITATIONS NO CHEST PRESSURE. NO INCREASING SHORTNESS OF BREATH ?DENIES ANY NAUSEA OR VOMITING ?CONTINUE TO REPORT PAIN TO HIS THROAT AREA. ?AGAIN PAIN WAS DESCRIBED A NERVE TYPE OF PAIN? ASKING FOR MORE MORPHINE/ MORE OFTEN NO SIGNIFICANT ISSUES REPORTED BY NURSING OVERNIGHT Exam Vital Signs (past 8 hours): - 09/27/21 07:45 09/27/21 08:00 Temperature 98.8 F Pulse Rate 96 H Respiratory Rate 19 Blood Pressure 107/56 L Pulse Oximetry 93 95 Oxygen Delivery Method Room Air Oxygen Flow Rate 0 Narrative Exam Narrative: NO ACUTE DISTRESS.? PATIENT IS ALERT ORIENTED X3. HEAD ATRAUMATIC NORMOCEPHALIC NECK : SUPPLE WITHOUT ADENOPATHY NO CAROTID BRUITS EYE:? EOMI, PERRLA, NORMAL CONJUNCTIVA; NO JAUNDICE CHEST:? REGULAR RATE.? ? NO RUBS.? PMI IS NON DISPLACED.? NO MURMURS; NORMAL S1- S2 PULMONARY:? DECREASED BS OVER THE BASES.? MILD BIBASILAR CRACKLES NOTED; NO INCREASED DULLNESS TO PERCUSSION ABDOMEN: ? OBESE BUTSOFT.? NONTENDER.? NONDISTENDED.? BOWEL SOUNDS ARE PRESENT IN ALL 4 QUADRANTS.? NO MASS. EXTREMITIES: ? 2+ NONPITTING EXTREMITY EDEMA..? NO CYANOSIS CLUBBING NOTED. NEURO: ? NO DIFFICULTY WITH SPEECH.? DIFFICULTY WITH SWALLOWING APPRECIATED. ? NO NEUROLOGICAL DEFICITS TO THE EXTREMITIES. ? SENSATION INTACT TO ALL EXTREMITIES. MSK:? NORMAL RANGE OF MOTION FOR AGE.? NO JOINT EFFUSION. SKIN:? NORMAL FOR ETHNICITY; NO ECCHYMOSIS.? NO LESION. ? GOOD? TURGOR.; NO RASHES :? NORMAL EXTERNAL GENITALIA. PSYCH :? ALERT AWAKE ORIENTED X3.? MILDLY ANXIOUS.? POOR INSIGHT Objective Labs Result Diagrams: 09/27/21 04:45 09/27/21 04:45 Labs: Laboratory Results - last 24 hr 09/27/21 09/27/21 04:45 04:45 WBC 10.4 RBC 4.17 L Hgb 13.5 Hct 40.7 L MCV 97.6 MCH 32.3 MCHC 33.1 RDW 16.8 H Plt Count 240 Neut % (Auto) 85.2 H Lymph % (Auto) 3.9 L [place] % (Auto) 9.1 Eos % (Auto) 0.6 L Baso % (Auto) 1.2 Neut # (Auto) 8900 H Lymph # (Auto) 400 L [place] # (Auto) 1000 H Eos # (Auto) 100 Baso # (Auto) 100 Sodium 135 L Potassium 4.6 Chloride 103 Carbon Dioxide 22 BUN 20 Creatinine 1.00 Estimated GFR > 60 BUN/Creatinine Ratio 20.0 Glucose 120 H Calcium 8.6 Magnesium 2.0 PFSH Medical History Age related cataract Ankle pain Anticoagulation goal of INR 2 to 3 Atrial fibrillation Atrial fibrillation Benign prostatic hyperplasia Chicken pox Cholelithiasis Chronic anticoagulation Chronic back pain COPD (chronic obstructive pulmonary disease) Gout Hearing loss Hemorrhoid History of gastric ulcer History of tobacco use Hyperlipidemia Hypertension Measles Mumps Obesity Osteoarthritis Pericarditis 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 Tinnitus Surgical History Anesthesia History of ankle surgery (~1965) History of appendectomy (~2018) History of cataract removal with insertion of prosthetic lens History of laparotomy (~2000) History of tonsillectomy (~1944) Family History Mother Hypertension Heart disease Diabetes mellitus Hyperlipidemia Father Hypertension Hyperlipidemia Grandmother Pneumonia Social History marital status: household members: spouse occupational status: previously employed Smoking Status: Former smoker alcohol intake: former substance use type: does not use Assessment & Plan Assessment & Plan narrative: IMPRESSION DYSPHAGIA.? ? SECONDARY? TO CVA. RECENT FRONTAL/PATIETAL LOBES CVA INTRAVASCULAR FLUID DEPLETION.? ON IV FLUID FOR NOW HYPERTENSION PER HISTORY.? IV METOPROLOL POSSIBLE? OPIOID SEEKING BEHAVIOR.? NURSING TO BE AWARE ANEMIA.? LIKELY OF CHRONIC DISEASE HYPONATREMIA.? MILD PAROXYSMAL ATRIAL FIBRILLATION PER HISTORY BPH PER HISTORY COPD PER HISTORY. OVERWEIGHT.? BMI OF 28 POLYMYALGIA RHEUMATICA PER HISTORY. OSTEOARTHRITIS PER HISTORY ?PLAN PATIENT EVALUATED BY THE SURGICAL TEAM TODAY PLAN TO TAKE PATIENT TO THE OR TO MORE FOR PEG TUBE PLACEMENT SPOKE TO HIS AT BEDSIDE AND SHE REMAINED AGREEABLE TO THE PROCEDURE NO SIGN OF ACUTE COMPLICATION OTHERWISE REMAIN NPO CONTINUE TO MONITOR CLOSELY AGAIN NURSING TO MAINTAIN STRICT ASPIRATION PRECAUTIONS PATIENT WILL NEED TO FOLLOW UP WITH ENT ALSO OUTPATIENT THERE IS REPORTED PAIN WITH SWALLOWING WELL DIURETIC VISUALIZATION THROUGH ENDOSCOPIC EVALUATION COULD HELP ON DETERMINING THE ETIOLOGY OF HIS REPORTED COMPLAINT ADDITIONAL MANAGEMENT PER CLINICAL COURSE DISCHARGE ONCE ABLE TO TOLERATE TUBE FEEDING AND CLEARED BY SURGICAL TEAM 09/26 ?SPEECH THERAPY REQUESTED PATIENT TO REMAIN NPO ?PATIENT WILL NEED A PEG TUBE FOR ALTERNATIVE TO WHICH HE IS AGREEABLE TO ?WILL CONSULT SURGERY FOR RECOMMENDATIONS AND POSSIBLE PEG TUBE PLACEMENT ?IV FLUID ORDERED ? WHILE NPO.? KCL WITH NORMAL SALINE ? HYPONATREMIA IS ALREADY EXHIBITED? ALL LABS ? ?MONITOR CLOSELY FOR ANY SIGN OF FLUID OVERLOAD ?MONITOR LAB CLOSELY ?KIDNEY AND LIVER FUNCTION FAIRLY STABLE ?PATIENT HAS INCREASED SECRETIONS WILL ADD SCOPOLAMINE PATCH WELL NEEDED SUBLINGUAL ATROPINE ?MAINTAIN ASPIRATION PRECAUTION AT ALL TIMES ?DAILY LAB TO FOLLOW FOR NOW ?CONVERT HOME MEDS TO IV ROUTE IF POSSIBLE ?ADDITIONAL MANAGEMENT PER CLINICAL COURSE Time Spent With Patient Critical Care time: I spent a total of [] minutes of critical care time on this patient's care today; this time is exclusive of procedural time. Quality VTE Deep Vein Thrombosis/Pulmonary Embolism Present on Admission: No
--- NOTE | 2021-09-27 14:53 | CM.DPC ---
DCP Cont. Confirmed with nurse Nisreen that patient will have PEG placement tomorrow afternoon. Spouse Fareed has been at bedside most of day and spends nights. Updated Anahi at [facility] that PEG tube will be placed tomorrow. Attempted to meet with this afternoon but deferred due to staff members in the room. P: DCP to continue to follow. At this time [facility] has referral. Samira Chand RN/Insurance Assistant
--- NOTE | 2021-09-27 17:07 | DI.RAD.S_ITS ---
PROCEDURE: XR CHEST 1V INDICATIONS: increased oxygen need TECHNIQUE: One view of the chest was acquired. COMPARISON: [facility], CR, XR CHEST 1V, 09/25/2021, 14:46. FINDINGS: Surgical changes and devices: None. Lungs and pleura: Mild elevation of left hemidiaphragm is again seen with left basilar atelectasis and small left pleural effusion unchanged from prior study. Pulmonary vascular congestion is again noted. No pneumothorax. Right lung is clear. Mediastinum: Mediastinal contours appear normal. Heart size is enlarged. Bones and chest wall: No suspicious bony lesions. Overlying soft tissues appear unremarkable. IMPRESSION: Persistent CHF changes and small left pleural effusion. No gross pneumothorax. Dictated by: Bry Reyes M.D. on 09/27/2021 at 17:51 Approved by: Bry Reyes M.D. on 09/27/2021 at 17:51
[2021-09-27] MEDS: FUROSEMIDE 20 MG/2 ML VIAL IV ×2 (17:40→17:53)
[2021-09-27] MEDS: dilTIAZem 5 MG/ML SDV 20 MG IV (18:08)
--- NOTE | 2021-09-27 18:31 | PC.NURSE ---
Pt ambulated to the bathroom when back to bed patient stated trouble breathing started 3 L O2 nasal cannula. Notified Dr. Peoples that pt lungs sound coarse and ICU reported heart rate sustained 170s. Dr Peoples ordered EKG, chest x-ray, reduce IV potassium 20 meq in NS rate to 50 ml/hr, now dose lasix 20mg x 2, now dose metoprolol 5 mg x 2, morphine 2 mg, diltiazem [address] Peoples at bedside monitoring pt with this RN. Orders completed. Pt appears more comfortable, spouse at the bedside, pt self suctioning as needed. Pt denies needs at this time.
[2021-09-27 19:17] LABS: Alanine Aminotransferase 20 IU/L (<50); Albumin 3.7 g/dL (3.5-5.0); Albumin Globulin Ratio 1.2 (1.0-2.8); Alkaline Phosphatase 87 U/L (38-126); Aspartate Aminotransferase 25 IU/L (17-59); BUN Creatinine Ratio 20.2 (6-22); Bilirubin Total 2.1 mg/dL (0.2-1.3); Blood Urea Nitrogen 19 mg/dL (9-20); Calcium 8.8 mg/dL (8.4-10.2); Carbon Dioxide 22 mmol/L (22-32); Chloride 104 mmol/L (98-107); Estimated Glomerular Filt Rate > 60 mL/min (>60); Globulin 3.1 g/dL (1.7-4.1); Glucose 147 mg/dL (80-110); HEMOLYSIS < 15 (0-50); Magnesium 1.9 mg/dL (1.6-2.3); Phosphorous 2.9 mg/dL (2.3-3.7); Sodium 136 mmol/L (137-145); Total Protein 6.8 g/dL (6.3-8.2)
[2021-09-27] MEDS: dilTIAZem 5 MG/ML SDV 10 MG IV (20:39)
[2021-09-27] MEDS: levoFLOXacin 750 MG/150 ML PIGGYBACK 100 MG IV (20:49)
[2021-09-27 20:50] LABS: Add Manual Diff / Slide Review NO; Basophils Absolute Auto 0 /uL (0-100); Basophils Percent Auto 0.5 % (0-2); Eosinophils Absolute Auto 0 /uL (0-450); Eosinophils Percent Auto 0.1 % (2-4); Hematocrit 39.2 % (41-53); Hemoglobin 13.3 g/dL (13.5-17.5); Lymphocytes Absolute Auto 200 /uL (1100-4500); Lymphocytes Percent Auto 1.9 % (25-40); Mean Corpuscular HGB Conc 33.9 % (30-36); Mean Corpuscular Hemoglobin 32.8 PG (26-34); Mean Corpuscular Volume 96.8 fL (80-100); Monocytes Absolute Auto 200 /uL (0-900); Monocytes Percent Auto 2.4 % (3-14); Neutrophils Absolute Auto 9600 /uL (1500-7000); Neutrophils Percent Auto 95.1 % (50-75); Platelet Count 254 X10^3/uL (150-400); Red Blood Cell Count 4.05 X10^6/uL (4.5-5.9); Red Cell Distribution Width 16.9 % (11.6-14.8); White Blood Cell Count 10.1 X10^3/uL (4.5-11.0)
[2021-09-27 21:18] LABS: NT-proBNP (BNP-Adult 18+) 3600 pg/mL (<450); Procalcitonin 0.32 ng/mL (<0.5)
--- NOTE | 2021-09-27 21:38 | PC.NURSE ---
Addendum entered by Opal Carrillo R.N. 09/28/21 05:11: 14Fr catheter placed earlier without problem and urine clear, dark yellow. HR continued to sustain mostly in 120 range but after catheter placed and on HHFNC HR did come down to mostly one-teens. WEB MARKETING ASSISTANT was informed and Metoprolol order changed to scheduled with Diltiazem for breakthrough. Patient able to sleep well after catheter placed and O2 switched to HHFNC. At 0316 telemetry reading was afib CVR with rate of 94. Patient awake this morning and, again, doing more frequent suctioning. Weight noted to be down 3.7kg but attributed to being NPO for several days as well as having received IV Lasix last evening. Current HR is 107 bpm. Addendum entered by Opal Carrillo R.N. 09/27/21 22:21: correction: suctioning by RT was done oropharyngeal. Original Note: Upon transfer of care patient's HR still sustaining > 120 so administered IV Metoprolol. Patient had received IV Lasix on previous shift so is urinating frequently and HR going up into 140's with activity. Temperature elevated at 100.4 and noted patient is not currently on antibiotics. Patient using yankour frequently and bringing up thick green tinged sputum. Discussed with Elvin SMITH, and new orders received. Attempted to place 16Fr Latex free catheter but unable to insert more than 1-2 inches and patient complaining of great deal of pain; some bleeding noted. reports patient has chronic dysuria as well as prostate problems; coordinator attempting to locate smaller latex free catheter. Around 2129 patient began complaining of not being able to breathe due to inability to get mucous cleared from throat. O2 sat 89% on 4L/min oxygen so increased to 6L/min and RT called and provided endotracheal suctioning with return of large amounts thick mucous and is now placing patient on heated high flow NC. HR continues to be in 120-130 range and WEB MARKETING ASSISTANT was informed.
--- NOTE | 2021-09-27 21:41 | PM.EVENT ---
Event Note Date Patient Seen: 09/27/21 Time Patient Seen: 21:41 Event Note (Rapid Response, Code, or fall): Patient reported to have an elevated heart rate, went into Afib w/RVR earlier today. Received a dose of IV metoprolol and diltiazem. HR in 120s currently. Noted his antibiotics were not continued after he received one dose in the ED, so he was started on IV Levoquin 750 once daily now. Oxygenating on 6 liters, but still producing copious secretions. RT will induce a sputum culture and put him on humidified high flow O2. BiPap is not appropriate because of his secretions. Informal discussion w/box sealing machine catcher. Recommended scheduling metoprolol and having diltiazem for prn breathrough tachycardia/atrial fibrillation. Metoprolol tartrate 5 mg IV q 6 hours.
[2021-09-28] VITALS (19 sets, daily range): BP systolic 102–127; BP diastolic 51–72; PULSE 87–117; RESP 18–32; TEMP 35.7–36.9; O2SAT 94–99
[2021-09-28] MEDS: METOPROLOL TARTRATE 5 MG/5 ML INJ IV ×4 (00:54→19:12)
[2021-09-28 05:05] LABS: Add Manual Diff / Slide Review NO; Basophils Absolute Auto 0 /uL (0-100); Basophils Percent Auto 0.5 % (0-2); Eosinophils Absolute Auto 0 /uL (0-450); Eosinophils Percent Auto 0.2 % (2-4); Hematocrit 38.5 % (41-53); Hemoglobin 13.2 g/dL (13.5-17.5); Lymphocytes Absolute Auto 300 /uL (1100-4500); Lymphocytes Percent Auto 5.1 % (25-40); Mean Corpuscular HGB Conc 34.3 % (30-36); Mean Corpuscular Hemoglobin 33.1 PG (26-34); Mean Corpuscular Volume 96.6 fL (80-100); Monocytes Absolute Auto 400 /uL (0-900); Monocytes Percent Auto 6.1 % (3-14); Neutrophils Absolute Auto 5600 /uL (1500-7000); Neutrophils Percent Auto 88.1 % (50-75); Platelet Count 233 X10^3/uL (150-400); Red Blood Cell Count 3.98 X10^6/uL (4.5-5.9); White Blood Cell Count 6.3 X10^3/uL (4.5-11.0)
[2021-09-28 05:19] LABS: Alanine Aminotransferase 21 IU/L (<50); Albumin 3.4 g/dL (3.5-5.0); Albumin Globulin Ratio 1.2 (1.0-2.8); Alkaline Phosphatase 70 U/L (38-126); Aspartate Aminotransferase 27 IU/L (17-59); BUN Creatinine Ratio 21.3 (6-22); Bilirubin Total 1.9 mg/dL (0.2-1.3); Blood Urea Nitrogen 20 mg/dL (9-20); Calcium 8.4 mg/dL (8.4-10.2); Carbon Dioxide 25 mmol/L (22-32); Chloride 104 mmol/L (98-107); Estimated Glomerular Filt Rate > 60 mL/min (>60); Globulin 2.9 g/dL (1.7-4.1); Glucose 138 mg/dL (80-110); HEMOLYSIS < 15 (0-50); Phosphorous 3.2 mg/dL (2.3-3.7); Potassium 4.4 mmol/L (3.4-5.1); Sodium 137 mmol/L (137-145); Total Protein 6.3 g/dL (6.3-8.2)
[2021-09-28] MEDS: PANTOPRAZOLE 40 MG VIAL IV ×2 (09:06→21:22)
[2021-09-28] MEDS: MORPHINE 2 MG/ML INJ IV (09:08)
--- NOTE | 2021-09-28 09:28 | PM.CALLCOV.1 ---
Call Coverage Note Note Date of Patient Contact: 09/28/21 Time of Patient Contact: 09:28 Narrative of Care Provided: Clinical status reviewed. Significant hemodynamic decline over the past 24 hrs secondary to congestive heart failure. Yesterday had been on 3 L nasal canula now 40 L /min. -Cancel PEG for today -Recommend Dobhof tube placement for start of enteral nutrition
--- NOTE | 2021-09-28 13:17 | ST.IPDYTX ---
Visit Care Team Role Provider Type Michelet Irby MD Primary Care Provider Physician Specialty: Family Practice Address: [address] [place] [address], [address] Email: [email or web address] Bry Shelton MD Other Providers Physician Specialty: General Surgery Address: [address] [place] [address], [address] Email: [email or web address] Kirit Khan MD Other Providers Physician Specialty: Ear, Nose, Throat Address: [address] [place] [address], [address] Email: [email or web address] Bradly Landa MD Family Provider Non-Staff Specialty: Family Practice Address: [address] [place] [address], [address] Email: Sharda Simmons DO Emergency Provider Physician Referring Provider Specialty: Emergency Medicine Address: [address] [place] [address], [address] Email: [email or web address] Admit Provider Physician Attending Provider Specialty: Internal Medicine Address: [address] [place] [address], [address] Email: [email or web address] Dysphagia Treatment NATIONAL EXPANSION RECRUITER Dysphagia Treatment Start: 09/28/21 12:46 Freq: Status: Active Protocol: Document 09/28/21 12:46 PRABHA (Rec: 09/28/21 13:13 PRABHA [id number]) Dysphagia Treatment Session Time Visit Start Time 08:55 Visit Stop Time 09:25 Total Visit Minutes 30 Setting Assessment Location Acute Care Visit Type Note Type Treatment Note Next Note Type Next Note Type Treatment Note Patient Information Identification Type Name,ID Card Subjective Observations The pt was lying in bed awake with oral suction wand available, which he used frequently throughout the session. His was present. Both the pt and his recognized this NATIONAL EXPANSION RECRUITER from the pt's last hospital stay. An NATIONAL EXPANSION RECRUITER sports internship was also present for observation of the session . The pt had an A-fib event last night and was scheduled for possible PEG-tube placement today, if medically stable for surgery. He was receiving 6L O2 via NCduring this session. He reported pain at the level of his tonsils, which worsened during swallow and speech. Treatment Treatment Activities No oral trials were administered. Oral peripheral exam was performed. Noted mild lingual weakness, and a small dark spot was seen inside the right cheek, possibly a place where the pt had bitten his cheek, though he did not recall doing so. All other oral mucosa appeared WNL. The pt was unable to produce a volitional swallow. Education was provided to the pt/ RE ST POC, with a primary focus on strengthening swallow musculature to reduce early posterior spillage to the pharynx (as seen on recent MBS) and improve airway closure to reduce risk of aspiration. Pt/caregiver training was provided in exercises, including VF adduction and laryngeal elevation using voice, as vocal quality was perceived as severely impacted with significant roughness, breathiness, and strain. The pt was unable to sustain phonation and glottic closure during vowel production, raising concern for possible VF paresis. ENT laryngoscopy evaluation would be beneficial to guide both dysphagia and dysphonia POC. Exercises were modified to meet the pt's ability level, and he returned demonstration of all. Education RE vocal strain was also provided and a whiteboard was provided to assist with expressive communication while conserving voice. The pt was able to write WNL. Assessment Assessment of Improvement The pt continues with severe dysphagia and severe dyphonia. Concern of VF paresis is high , which would significantly impact both airway protection during swallow and voice production. Recommend continuing NPO status and reduce use of voice. A white board was provided to assist in communication to reduce laryngeal/VF strain which may contribute to the pt's throat pain. Recommend ENT evaluation of VF status to guide POC. Diet Recommendations Liquids Order Nothing by Mouth Diet Order NPO Medication Recommendations Not Recommended by Mouth Treatment Plan Therapy Recommendations Ongoing assessment of swallow and voice; exercises to improve both Dysphagia Goals 1. The pt will perform exercises to improve swallow safety and vocal quality. 2. The pt will demonstrate swallow safety sufficient to resume oral intake. 3. The pt will produce voice WFL. Referrals/Other Recommended Referrals ENT Consult
[2021-09-28] MEDS: FUROSEMIDE 20 MG/2 ML VIAL IV (13:22)
[2021-09-28] MEDS: DOXYCYCLINE 100 MG in SODIUM CHLORIDE 0.9% 100 ML IV ×2 (13:22→23:37)
--- NOTE | 2021-09-28 13:43 | PC.NURSE ---
[address] Shelton on the phone about the status of the pts PEG tube placement scheduled today. Notified Dr. Shelton that the pt was on 3 L nasal canual 09/27/21 and today on [address] flow oxygen[address]. Shelton states cancel PEG tube today. Notified Dr. Rick, pt, and pt Fareed at the bedside that PEG tube placement is cancelled today.
[2021-09-28] MEDS: IPRATROPIUM 0.5 MG/2.5 ML NEB INH (14:57)
--- NOTE | 2021-09-28 16:00 | DI.RAD.S_ITS ---
PROCEDURE: XR CHEST 1V INDICATIONS: ACUTE HYPOXIC RESP FAILURE TECHNIQUE: One view of the chest was acquired. COMPARISON: [facility], CR, XR CHEST 2 VIEWS, 07/12/2019, 14:58. [facility], CR, XR CHEST 1V, 09/25/2021, 14:46. [facility], CR, XR CHEST 1V, 09/27/2021, 17:10. FINDINGS: Surgical changes and devices: None. Lungs and pleura: Chronic elevation of the left hemidiaphragm. Persistent small left basilar pleural effusion and slight interval decrease in left basilar airspace opacity. No pneumothorax. Mediastinum: Mediastinal contours appear normal. Heart size is normal. Bones and chest wall: No suspicious bony lesions. Overlying soft tissues appear unremarkable. IMPRESSION: 1. Chronic elevation left hemidiaphragm. 2. Persistent small left basilar pleural effusion and interval decrease in left basilar atelectasis versus pneumonia or aspiration. Dictated by: Duy UREÑA Interpreted: Martín Vargas MD on 09/28/2021 at 16:23 Transcribed by: GEORGE on 09/28/2021 at 16:25 Approved by: Martín Vargas M.D. on 09/28/2021 at 16:44
[2021-09-28] MEDS: KETOROLAC 30 MG/ML VIAL 15 MG IV (16:34)
[2021-09-28] MEDS: DIGOXIN 500 MCG/2 ML AMPUL IV (19:05)
[2021-09-28] MEDS: levoFLOXacin 750 MG/150 ML PIGGYBACK 100 MG IV (19:48)
--- NOTE | 2021-09-28 20:00 | P.PN_ITS ---
Subjective Subjective Date Patient Seen: 09/28/21 Interval history: ?THIS IS A 86-YEAR-OLD MALE WITH A RECENT CVA. CVA ? REPORTED AT THE END OF AUGUST OF THIS YEAR. HE HAS SIGNIFICANT DYSPHAGIA A RESULT? OF THE STROKE ?BLOOD TO THE HOSPITAL WITH? DIFFICULTY SWALLOWING WELL INTRAVASCULAR FLUID DEPLETION ?FAILLED? SWALLOW EVAL ON 09/26.? AGREEABLE? FOR A PEG TUBE FOR TEMPORARY FILLING ?TODAY ?NO CHEST PAIN.? NO CHEST PALPITATIONS ?NO CHEST PRESSURE.? NO INCREASING SHORTNESS OF BREATH ?DENIES ANY NAUSEA OR VOMITING ?CONTINUE TO REPORT? PAIN TO HIS THROAT AREA. ?AGAIN PAIN WAS DESCRIBED A? NERVE TYPE OF PAIN? ASKING FOR MORE MORPHINE/ MORE OFTEN ? NO SIGNIFICANT ISSUES REPORTED BY NURSING OVERNIGHT Exam Vital Signs (past 8 hours): - 09/28/21 12:46 09/28/21 14:57 09/28/21 16:00 Temperature 96.4 F L 96.7 F L Pulse Rate 110 H 105 H 117 H Respiratory Rate 22 18 32 H Blood Pressure 110/62 121/68 Pulse Oximetry 94 97 96 09/28/21 17:13 09/28/21 19:05 Temperature Pulse Rate 101 H 108 H Respiratory Rate 20 Blood Pressure 127/72 Pulse Oximetry Fraction of Inspired Oxygen 38 Oxygen Delivery Method Heated High Flow Oxygen Flow Rate 40 Narrative Exam Narrative: NO ACUTE DISTRESS.? PATIENT IS ALERT ORIENTED X3. HEAD ATRAUMATIC NORMOCEPHALIC NECK : SUPPLE WITHOUT ADENOPATHY NO CAROTID BRUITS EYE:? EOMI, PERRLA, NORMAL CONJUNCTIVA; NO JAUNDICE CHEST:? REGULAR RATE.? ? NO RUBS.? PMI IS NON DISPLACED.? NO MURMURS; NORMAL S1- S2 PULMONARY:? DECREASED BS OVER THE BASES.? MILD BIBASILAR CRACKLES NOTED; NO INCREASED DULLNESS TO PERCUSSION ABDOMEN: ? OBESE BUTSOFT.? NONTENDER.? NONDISTENDED.? BOWEL SOUNDS ARE PRESENT IN ALL 4 QUADRANTS.? NO MASS. EXTREMITIES: ? 2+ NONPITTING EXTREMITY EDEMA..? NO CYANOSIS CLUBBING NOTED. NEURO: ? NO DIFFICULTY WITH SPEECH.? DIFFICULTY WITH SWALLOWING APPRECIATED. ? NO NEUROLOGICAL DEFICITS TO THE EXTREMITIES. ? SENSATION INTACT TO ALL EXTREMITIES. MSK:? NORMAL RANGE OF MOTION FOR AGE.? NO JOINT EFFUSION. SKIN:? NORMAL FOR ETHNICITY; NO ECCHYMOSIS.? NO LESION. ? GOOD? TURGOR.; NO RASHES :? NORMAL EXTERNAL GENITALIA. PSYCH :? ALERT AWAKE ORIENTED X3.? MILDLY ANXIOUS.? POOR INSIGHT Objective Labs Result Diagrams: 09/28/21 04:36 09/28/21 04:36 Labs: Laboratory Results - last 24 hr 09/27/21 09/27/21 09/27/21 20:40 20:40 20:40 WBC 10.1 RBC 4.05 L Hgb 13.3 L Hct 39.2 L MCV 96.8 MCH 32.8 MCHC 33.9 RDW 16.9 H Plt Count 254 Neut % (Auto) 95.1 H Lymph % (Auto) 1.9 L [place] % (Auto) 2.4 L Eos % (Auto) 0.1 L Baso % (Auto) 0.5 Neut # (Auto) 9600 H Lymph # (Auto) 200 L [place] # (Auto) 200 Eos # (Auto) 0 Baso # (Auto) 0 Sodium Potassium Chloride Carbon Dioxide BUN Creatinine Estimated GFR BUN/Creatinine Ratio Glucose Calcium Phosphorus Magnesium Total Bilirubin AST ALT Alkaline Phosphatase NT-Pro-B Natriuret Pep 3600 H Total Protein Albumin Globulin Albumin/Globulin Ratio Procalcitonin 0.32 09/28/21 09/28/21 04:36 04:36 WBC 6.3 RBC 3.98 L Hgb 13.2 L Hct 38.5 L MCV 96.6 MCH 33.1 MCHC 34.3 RDW 17.0 H Plt Count 233 Neut % (Auto) 88.1 H Lymph % (Auto) 5.1 L [place] % (Auto) 6.1 Eos % (Auto) 0.2 L Baso % (Auto) 0.5 Neut # (Auto) 5600 Lymph # (Auto) 300 L [place] # (Auto) 400 Eos # (Auto) 0 Baso # (Auto) 0 Sodium 137 Potassium 4.4 Chloride 104 Carbon Dioxide 25 BUN 20 Creatinine 0.94 Estimated GFR > 60 BUN/Creatinine Ratio 21.3 Glucose 138 H Calcium 8.4 Phosphorus 3.2 Magnesium 2.0 Total Bilirubin 1.9 H AST 27 ALT 21 Alkaline Phosphatase 70 NT-Pro-B Natriuret Pep Total Protein 6.3 Albumin 3.4 L Globulin 2.9 Albumin/Globulin Ratio 1.2 Procalcitonin [facility] Medical History Age related cataract Ankle pain Anticoagulation goal of INR 2 to 3 Atrial fibrillation Atrial fibrillation Benign prostatic hyperplasia Chicken pox Cholelithiasis Chronic anticoagulation Chronic back pain COPD (chronic obstructive pulmonary disease) Gout Hearing loss Hemorrhoid History of gastric ulcer History of tobacco use Hyperlipidemia Hypertension Me[place]les Mumps Obesity Osteoarthritis Pericarditis 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 Tinnitus Surgical History Anesthesia History of ankle surgery (~1965) History of appendectomy (~2018) History of cataract removal with insertion of prosthetic lens History of laparotomy (~2000) History of tonsillectomy (~1944) Family History Mother Hypertension Heart disease Diabetes mellitus Hyperlipidemia Father Hypertension Hyperlipidemia Grandmother Pneumonia Social History marital status: household members: spouse occupational status: previously employed Smoking Status: Former smoker alcohol intake: former substance use type: does not use Assessment & Plan Assessment & Plan narrative: IMPRESSION ACUTE HYPOXIC RESPIRATORY FAILURE ON CHRONIC RESPIRATORY FAILURE POSS ACUTE COPD EXACERBATION ; HX OF TOBACCO ABUSE REPORTED DYSPHAGIA.? ? SECONDARY? TO CVA. RECENT? FRONTAL/PATIETAL LOBES CVA? INTRAVASCULAR FLUID DEPLETION.? ON IV FLUID FOR NOW HYPERTENSION PER HISTORY.? IV METOPROLOL POSSIBLE? OPIOID SEEKING BEHAVIOR.? NURSING TO BE AWARE ANEMIA.? LIKELY OF CHRONIC DISEASE HYPONATREMIA.? MILD PAROXYSMAL ATRIAL FIBRILLATION PER HISTORY BPH PER HISTORY OVERWEIGHT.? BMI OF 28 POLYMYALGIA RHEUMATICA PER HISTORY. OSTEOARTHRITIS PER HISTORY ?PLAN WILL START ON DIGOXIN TODAY FOR BETTER RATE CONTROL CONTINUE METOPROLOL AND CARDIZEM PRN STEVEN ALSO START ON DOXY FOR SUSPECTED COPDE WILL ATROVEN AND STEROIDS WELL REPEAT CHEST FILM SHOWING IMPROVEMENT CONTINUE FLUIDS AT LOW RATE ; WILL INCREASE TO 50CC/HR WORKING WITH RT TO TITRATE O2 AGGRESSIVE PULM TOILETING ADDITIONAL MANAGEMENT PER CLINICAL COURSE 09/27 PATIENT EVALUATED BY THE SURGICAL TEAM TODAY PLAN TO TAKE PATIENT TO THE OR TO MORE FOR PEG TUBE PLACEMENT SPOKE TO HIS AT BEDSIDE AND SHE REMAINED AGREEABLE TO THE PROCEDURE NO SIGN OF ACUTE COMPLICATION OTHERWISE REMAIN NPO ?CONTINUE TO MONITOR CLOSELY ?AGAIN NURSING TO MAINTAIN STRICT ?ASPIRATION PRECAUTIONS ?PATIENT WILL NEED TO FOLLOW UP WITH ENT? ALSO OUTPATIENT ?THERE IS REPORTED PAIN WITH SWALLOWING WELL ?DIURETIC VISUALIZATION THROUGH? ENDOSCOPIC ? EVALUATION COULD HELP ON? DETERMINING? THE ETIOLOGY OF HIS REPORTED? COMPLAINT ?ADDITIONAL MANAGEMENT PER CLINICAL COURSE ?DISCHARGE ONCE ABLE TO TOLERATE TUBE FEEDING AND CLEARED BY SURGICAL TEAM 09/26 ?SPEECH THERAPY REQUESTED PATIENT TO REMAIN NPO ?PATIENT WILL NEED A PEG TUBE FOR ALTERNATIVE TO WHICH HE IS AGREEABLE TO ?WILL CONSULT SURGERY FOR RECOMMENDATIONS AND POSSIBLE PEG TUBE PLACEMENT ?IV FLUID ORDERED ? WHILE NPO.? KCL WITH NORMAL SALINE ? HYPONATREMIA IS ALREADY EXHIBITED? ALL LABS ? ?MONITOR CLOSELY FOR ANY SIGN OF FLUID OVERLOAD ?MONITOR LAB CLOSELY ?KIDNEY AND LIVER FUNCTION FAIRLY STABLE ?PATIENT HAS INCREASED SECRETIONS WILL ADD SCOPOLAMINE PATCH WELL NEEDED SUBLINGUAL ATROPINE ?MAINTAIN ASPIRATION PRECAUTION AT ALL TIMES ?DAILY LAB TO FOLLOW FOR NOW ?CONVERT HOME MEDS TO IV ROUTE IF POSSIBLE ?ADDITIONAL MANAGEMENT PER CLINICAL COURSE Time Spent With Patient Critical Care time: I spent a total of [] minutes of critical care time on this patient's care today; this time is exclusive of procedural time. Quality VTE Deep Vein Thrombosis/Pulmonary Embolism Present on Admission: No
--- NOTE | 2021-09-28 23:11 | PC.NURSE ---
Patient is alert and oriented. Breath sounds much improved with expiratory rhonchi at bases and diminished throughout. Secretions still green and thick but not as copious as last noc. Denies SOB and speech clearer and easier to understand tonight. On oxygen via HHFNC at 30L/min with Fi02 of 33% and sat of 97%. HR still irregular and tachycardic with rate of 109 and telemetry reading of afib RVF. Denied nausea. Remains NPO related to dysphagia and is awaiting feeding tube placement. BT hypoactive and patient denies flatus. Indwelling catheter is patent with clear christina urine noted. Is able to move himself in bed. Gait not assessed at this time. Denies current pain but has had intermittent throat discomfort relieved with use of Toradol. 1+ bilateral LE/foot edema. Wearing bilateral calf SCD's. Fall risk score is high and bed alarm is activated. rooming in.
[2021-09-29] VITALS (14 sets, daily range): BP systolic 108–127; BP diastolic 57–73; PULSE 88–104; RESP 18–27; TEMP 36.3–36.5; O2SAT 94–99
[2021-09-29] MEDS: DIGOXIN 500 MCG/2 ML AMPUL 250 MCG IV ×2 (00:54→06:24)
[2021-09-29] MEDS: KCL 20 MEQ IN NS 1,000 ML 50 MEQ IV (00:59)
[2021-09-29] MEDS: IPRATROPIUM 0.5 MG/2.5 ML NEB INH ×4 (01:54→20:41)
[2021-09-29] MEDS: METOPROLOL TARTRATE 5 MG/5 ML INJ IV ×4 (01:56→17:09)
[2021-09-29 04:44] LABS: Add Manual Diff / Slide Review NO; Basophils Absolute Auto 0 /uL (0-100); Basophils Percent Auto 0.3 % (0-2); Eosinophils Absolute Auto 0 /uL (0-450); Hematocrit 40.1 % (41-53); Hemoglobin 13.6 g/dL (13.5-17.5); Lymphocytes Absolute Auto 200 /uL (1100-4500); Lymphocytes Percent Auto 4.1 % (25-40); Mean Corpuscular HGB Conc 33.8 % (30-36); Mean Corpuscular Hemoglobin 32.8 PG (26-34); Monocytes Absolute Auto 100 /uL (0-900); Monocytes Percent Auto 1.4 % (3-14); Neutrophils Absolute Auto 5200 /uL (1500-7000); Neutrophils Percent Auto 94.2 % (50-75); Platelet Count 247 X10^3/uL (150-400); Red Blood Cell Count 4.13 X10^6/uL (4.5-5.9); Red Cell Distribution Width 16.7 % (11.6-14.8); White Blood Cell Count 5.6 X10^3/uL (4.5-11.0)
[2021-09-29 04:52] LABS: Alanine Aminotransferase 21 IU/L (<50); Albumin 3.3 g/dL (3.5-5.0); Albumin Globulin Ratio 1.1 (1.0-2.8); Alkaline Phosphatase 71 U/L (38-126); Aspartate Aminotransferase 27 IU/L (17-59); BUN Creatinine Ratio 38.5 (6-22); Blood Urea Nitrogen 35 mg/dL (9-20); Calcium 8.9 mg/dL (8.4-10.2); Carbon Dioxide 24 mmol/L (22-32); Chloride 105 mmol/L (98-107); Estimated Glomerular Filt Rate > 60 mL/min (>60); Globulin 3.1 g/dL (1.7-4.1); Glucose 187 mg/dL (80-110); HEMOLYSIS < 15 (0-50); Magnesium 2.1 mg/dL (1.6-2.3); Phosphorous 3.6 mg/dL (2.3-3.7); Potassium 4.8 mmol/L (3.4-5.1); Sodium 140 mmol/L (137-145); Total Protein 6.4 g/dL (6.3-8.2)
[2021-09-29] MEDS: FUROSEMIDE 20 MG/2 ML VIAL IV (08:54)
[2021-09-29] MEDS: PANTOPRAZOLE 40 MG VIAL IV ×2 (08:54→21:36)
--- NOTE | 2021-09-29 09:34 | DIET.CONS ---
Dietary Consultation Note Admission Date: 09/25/2021 19:39 Assessment: 86y M admitted c difficulty swallowing s/p CVA in August awaiting PEG placement. PEG placement postponed r/t afib c RVR, surgeon requests NG feeding until pt cardiac status stable. Pt with DM2 (A1c 7.7). Recc initiating NG feeding once tube placement confirmed. Continuous NG enteral feeding Glucerna 1.2 starting at 20mL/h titrating up by 10-20mL q4h as tolerated up to goal of 75mL/h. Recc 200mL free water flushes q4h. Please keep HOB >30 degrees while feeding. Goal feed plus fluids provide 2160kcals (26kcal/kg), 108g PRO (1.3g/kg), 206g CHO, 1458mL feed water and 1200mL free water flushes for total of 2658mL fluids (31mL/kg). Ht: 177.8 cm Wt: 83.9 kg BMI: 27.5 Last BM: 09/26/21 (09/26/21 11:38) MNA: 9 Tim Score: 19 Diet: 09/25/21 20:54 NPO Diet Diet Modifications: NPO Type: Strict 09/28/21 Lunch Courtesy Varun (Peds, comfort care) Diet Modifications: Labs: RBC 4.13 X10^6/uL (4.5-5.9) L 09/29/21 04:20 Hgb 13.6 g/dL (13.5-17.5) 09/29/21 04:20 Hct 40.1 % (41-53) L 09/29/21 04:20 Creatinine 0.91 mg/dL (0.66-1.25) 09/29/21 04:20 Hemoglobin A1c 7.7 % (4.0-6.0) H 09/25/21 14:48 Lactate 1.6 mmol/L (0.7-2.1) 09/25/21 18:08 NT-Pro-B Natriuret Pep 3600 pg/mL (<450) H 09/27/21 20:40 Interventions: Recc initiating NG feeding once tube placement confirmed. Continuous NG enteral feeding Glucerna 1.2 starting at 20mL/h titrating up by 10-20mL q4h as tolerated up to goal of 75mL/h. Recc 200mL free water flushes q4h. Please keep HOB >30 degrees while feeding. EER: 2000 kcals (25kcal/kg), 90-100g PRO (1-1.3g/kg) Monitoring/Evaluations: TF tolerance, PEG placement Electronically Signed by: Rachelle Rutherford 09/29/21 09:34 Clinical Dietitian [address] [address]
--- NOTE | 2021-09-29 10:13 | ST.IPDYTX ---
Visit Care Team Role Provider Type Michelet Irby MD Primary Care Provider Physician Specialty: Family Practice Address: [address] [place] [address], [address] Email: [email or web address] Bry Shelton MD Other Providers Physician Specialty: General Surgery Address: [address] [place] [address], [address] Email: [email or web address] Kirit Khan MD Other Providers Physician Specialty: Ear, Nose, Throat Address: [address] [place] [address], [address] Email: [email or web address] Bradly Landa MD Family Provider Non-Staff Specialty: [facility] Practice Address: [address] [place] [address], [address] Email: Sharda Simmons DO Emergency Provider Physician Referring Provider Specialty: Emergency Medicine Address: [address] [place] [address], [address] Email: [email or web address] Guy Admit Provider Physician Attending Provider Specialty: Internal Medicine Address: [address] [place] [address], [facility] Email: [email or web address] ONLINE ADVERTISING DIRECTOR Dysphagia Treatment ONLINE ADVERTISING DIRECTOR Dysphagia Treatment Start: 09/28/21 12:46 Freq: Status: Active Protocol: Document 09/29/21 09:46 PRABHA (Rec: 09/29/21 10:09 PRABHA [id number]) Dysphagia Treatment Session Time Visit Start Time 08:55 Visit Stop Time 09:25 Total Visit Minutes 30 Setting Assessment Location Acute Care Visit Type Note Type Treatment Note Next Note Type Next Note Type Treatment Note Patient Information Identification Type Name,ID Card Subjective Observations The pt was lying in bed awake with oral suction wand available, which he used occasionally during the session to eliminate phlegm. His was present. An ONLINE ADVERTISING DIRECTOR internal sales engineer was also present for observation of the session. PEG tube was not placed yesterday, as pt was not sufficiently medically stable. He reported ability to perform dry swallow overnight, which was painful in his throat, and to swallow moisture from glycerin swabs, which elicited no pain. Treatment Liquids Trialed Ice chips Administration Type Self-Feeding Oral Strategies Upright at 90 degrees Pharyngeal Strategies Chin Tuck Treatment Activities Hyolaryngeal elevation and excursion was present and strong via palpation. Pt was able to perform dry volitional swallow. Oral trials included glycerin swab, moist sponge swab, and ice chips. Consumption of water from sponge swab was not witnessed by this ONLINE ADVERTISING DIRECTOR, but pt/ reported immediate cough. Immediate cough was noted x1 with intake of ice chips when the pt talked with the ice chip in his mouth. Education was provided RE safe swallow strategies including chin tuck , refraining from talking with bolus in mouth, reducing distractions, and use of effortful swallow. With these strategies in place, no additional overt s/sx of aspiration were observed with both glycerin swabs and ice chips. The pt's vocal quality was percieved to be much improved today, with increased strength , stamina and clarity. Additional education was provided to the pt/ RE aspiration risks and precautions related to PEG tube feeding and oral consumption; the role and goals of Speech Pathology in dysphagia treatment when tube feeding is present; and general POC. All questions were answered and both the pt and verbalized understanding. The pt's reiterated to the pt the importance of following all recommendations to avoid another episode of aspiration pneumonia. The pt agreed. Assessment Patient Response to Treatment Good Rehab Potential Good Assessment of Improvement Significant improvement was seen today, both with swallow and voice. The pt is able to swallow volitionally and with minimal amounts of moisture when following precautions. Without following precautions, he coughs with small amounts of water, indicating continued impairment of airway closure. He is being compliant with exercise program and able to implement safe swallow strategies. Both he and his demonstrated excellent understanding of all education and training provided today; provided appropriate cuing to assist the pt in following strategies. The pt's voice was perceived to be stronger, clearer and with better stamina. This indicates improved VF adduction and breath support for voice and speech. The pt is an excellent candidate for continued dysphagia and dysphonia therapy. Recommend SNF or HH placement after hospital stay until pt/ spouse are sufficiently trained with tube feeding and pt demonstrates sufficient medical stability. Recommend transition to outpatient care thereafter, either in- person in their community or via teletherapy. Diet Recommendations Recommendations Continue Current Diet Liquids Order Ice Chips Only Diet Order NPO Medication Recommendations Not Recommended by Mouth Additional Dietary Needs Reminders to Use Strategies Aspiration Precautions Recommended Precautions Upright at 90 Degrees,Chin Tuck,Effortful Swallow Treatment Plan Placement Recommendation after Discharge Group Home Facility,Home with Home Health Appropriate for Continued Therapy Yes Therapy Recommendations Ongoing assessment of swallow and voice; exercises to improve both Dysphagia Goals 1. The pt will perform exercises to improve swallow safety and vocal quality. 2. The pt will demonstrate swallow safety sufficient to resume oral intake. 3. The pt will produce voice WFL. Follow Up Plan Daily over hospital course Referrals/Other Recommended Referrals ENT Consult
[2021-09-29] MEDS: DOXYCYCLINE 100 MG in SODIUM CHLORIDE 0.9% 100 ML 200 MG IV (12:10)
--- NOTE | 2021-09-29 12:35 | PM.PN.1 ---
Subjective Subjective Date Patient Seen: 09/29/21 Time Patient Seen: 12:36 Interval history: Weaned off high flow to NC over interval. Wants to proceed with PEG. Exam Vital Signs (past 8 hours): - 09/29/21 05:10 09/29/21 06:24 09/29/21 07:26 Temperature Pulse Rate 104 H Respiratory Rate 18 18 Blood Pressure 116/68 Pulse Oximetry 99 94 09/29/21 07:27 09/29/21 08:00 09/29/21 12:33 Temperature 97.7 F 97.4 F L Pulse Rate 97 H 94 H 90 Respiratory Rate 18 18 18 Blood Pressure 117/67 114/63 Pulse Oximetry 94 96 97 Fraction of Inspired Oxygen 0.30 Oxygen Delivery Method Heated High Flow Oxygen Flow Rate 30 Narrative Exam Narrative: Elderly man alert and oriented Chest-Non labored resp on 4 L NC Objective Labs Result Diagrams: 09/29/21 04:20 09/29/21 04:20 Labs: Laboratory Results - last 24 hr 09/29/21 09/29/21 04:20 04:20 WBC 5.6 RBC 4.13 L Hgb 13.6 Hct 40.1 L MCV 97.0 MCH 32.8 MCHC 33.8 RDW 16.7 H Plt Count 247 Neut % (Auto) 94.2 H Lymph % (Auto) 4.1 L Giles % (Auto) 1.4 L Eos % (Auto) 0.0 L Baso % (Auto) 0.3 Neut # (Auto) 5200 Lymph # (Auto) 200 L Giles # (Auto) 100 Eos # (Auto) 0 Baso # (Auto) 0 Sodium 140 Potassium 4.8 Chloride 105 Carbon Dioxide 24 BUN 35 H Creatinine 0.91 Estimated GFR > 60 BUN/Creatinine Ratio 38.5 H Glucose 187 H Calcium 8.9 Phosphorus 3.6 Magnesium 2.1 Total Bilirubin 2.0 H AST 27 ALT 21 Alkaline Phosphatase 71 Total Protein 6.4 Albumin 3.3 L Globulin 3.1 Albumin/Globulin Ratio 1.1 PFS Medical History Age related cataract Ankle pain Anticoagulation goal of INR 2 to 3 Atrial fibrillation Atrial fibrillation Benign prostatic hyperplasia Chicken pox Cholelithiasis Chronic anticoagulation Chronic back pain COPD (chronic obstructive pulmonary disease) Gout Hearing loss Hemorrhoid History of gastric ulcer History of tobacco use Hyperlipidemia Hypertension Measles Mumps Obesity Osteoarthritis Pericarditis 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 Tinnitus Surgical History Anesthesia History of ankle surgery (~1965) History of appendectomy (~2018) History of cataract removal with insertion of prosthetic lens History of laparotomy (~2000) History of tonsillectomy (~1944) Family History Mother Hypertension Heart disease Diabetes mellitus Hyperlipidemia Father Hypertension Hyperlipidemia Grandmother Pneumonia Social History marital status: household members: spouse occupational status: previously employed Smoking Status: Former smoker alcohol intake: former substance use type: does not use Assessment & Plan Assessment & Plan narrative: 86 y.o man with 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 Off high flow O2 down to NC will proceed with PEG tomorrow. Time Spent With Patient Critical Care time: I spent a total of [] minutes of critical care time on this patient's care today; this time is exclusive of procedural time. Quality VTE Deep Vein Thrombosis/Pulmonary Embolism Present on Admission: No
[2021-09-29 15:15] LABS: Digoxin 1.2 ng/mL (0.8-2.0)
--- NOTE | 2021-09-29 16:30 | PM.PN.1 ---
Subjective Subjective Date Patient Seen: 09/29/21 Interval history: ?THIS IS A 86-YEAR-OLD MALE WITH A RECENT CVA. CVA ? REPORTED AT THE END OF AUGUST OF THIS YEAR. HE HAS SIGNIFICANT DYSPHAGIA A RESULT? OF THE STROKE ?BLOOD TO THE HOSPITAL WITH? DIFFICULTY SWALLOWING WELL INTRAVASCULAR FLUID DEPLETION ?FAILLED? SWALLOW EVAL ON 09/26.? AGREEABLE? FOR A PEG TUBE FOR TEMPORARY FILLING ?TODAY FEELING MUCH BETTER SPOKE TO HIS FAMILY IN REGARD TO THE CASE STILL REPORTING ?NO CHEST PAIN.? NO CHEST PALPITATIONS ?NO CHEST PRESSURE.? NO SHORTNESS OF BREATH NO NAUSEA OR VOMITING Exam Vital Signs (past 8 hours): - 09/29/21 12:33 09/29/21 15:50 09/29/21 16:08 Temperature 97.4 F L 97.7 F Pulse Rate 90 91 H 101 H Respiratory Rate 18 18 18 Blood Pressure 114/63 108/57 L Pulse Oximetry 97 96 96 Fraction of Inspired Oxygen 0.30 Oxygen Delivery Method Room Air Oxygen Flow Rate 0 Narrative Exam Narrative: NO ACUTE DISTRESS.? PATIENT IS ALERT ORIENTED X3. HEAD ATRAUMATIC NORMOCEPHALIC NECK : SUPPLE WITHOUT ADENOPATHY NO CAROTID BRUITS EYE:? EOMI, PERRLA, NORMAL CONJUNCTIVA; NO JAUNDICE CHEST:? REGULAR RATE.? ? NO RUBS.? PMI IS NON DISPLACED.? NO MURMURS; NORMAL S1-S2 PULMONARY:? DECREASED BS OVER THE BASES.? MILD BIBASILAR CRACKLES NOTED; NO INCREASED DULLNESS TO PERCUSSION ABDOMEN: ? OBESE BUTSOFT.? NONTENDER.? NONDISTENDED.? BOWEL SOUNDS ARE PRESENT IN ALL 4 QUADRANTS.? NO MASS. EXTREMITIES: ? 2+ NONPITTING EXTREMITY EDEMA..? NO CYANOSIS CLUBBING NOTED. NEURO: ? NO DIFFICULTY WITH SPEECH.? DIFFICULTY WITH SWALLOWING APPRECIATED. ? NO NEUROLOGICAL DEFICITS TO THE EXTREMITIES. ? SENSATION INTACT TO ALL EXTREMITIES. MSK:? NORMAL RANGE OF MOTION FOR AGE.? NO JOINT EFFUSION. SKIN:? NORMAL FOR ETHNICITY; NO ECCHYMOSIS.? NO LESION. ? GOOD? TURGOR.; NO RASHES :? NORMAL EXTERNAL GENITALIA. PSYCH :? ALERT AWAKE ORIENTED X3.? MILDLY ANXIOUS.? POOR INSIGHT Objective Labs Result Diagrams: 09/29/21 04:20 09/29/21 04:20 Labs: Laboratory Results - last 24 hr 09/29/21 09/29/21 09/29/21 04:20 04:20 14:25 WBC 5.6 RBC 4.13 L Hgb 13.6 Hct 40.1 L MCV 97.0 MCH 32.8 MCHC 33.8 RDW 16.7 H Plt Count 247 Neut % (Auto) 94.2 H Lymph % (Auto) 4.1 L Throckmorton % (Auto) 1.4 L Eos % (Auto) 0.0 L Baso % (Auto) 0.3 Neut # (Auto) 5200 Lymph # (Auto) 200 L Throckmorton # (Auto) 100 Eos # (Auto) 0 Baso # (Auto) 0 Sodium 140 Potassium 4.8 Chloride 105 Carbon Dioxide 24 BUN 35 H Creatinine 0.91 Estimated GFR > 60 BUN/Creatinine Ratio 38.5 H Glucose 187 H Calcium 8.9 Phosphorus 3.6 Magnesium 2.1 Total Bilirubin 2.0 H AST 27 ALT 21 Alkaline Phosphatase 71 Total Protein 6.4 Albumin 3.3 L Globulin 3.1 Albumin/Globulin Ratio 1.1 Digoxin 1.2 [facility] Medical History Age related cataract Ankle pain Anticoagulation goal of INR 2 to 3 Atrial fibrillation Atrial fibrillation Benign prostatic hyperplasia Chicken pox Cholelithiasis Chronic anticoagulation Chronic back pain COPD (chronic obstructive pulmonary disease) Gout Hearing loss Hemorrhoid History of gastric ulcer History of tobacco use Hyperlipidemia Hypertension Measles Mumps Obesity Osteoarthritis Pericarditis 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 Tinnitus Surgical History Anesthesia History of ankle surgery (~1965) History of appendectomy (~2018) History of cataract removal with insertion of prosthetic lens History of laparotomy (~2000) History of tonsillectomy (~1944) Family History Mother Hypertension Heart disease Diabetes mellitus Hyperlipidemia Father Hypertension Hyperlipidemia Grandmother Pneumonia Social History marital status: household members: spouse occupational status: previously employed Smoking Status: Former smoker alcohol intake: former substance use type: does not use Assessment & Plan Assessment & Plan narrative: IMPRESSION ACUTE HYPOXIC RESPIRATORY FAILURE? ON CHRONIC RESPIRATORY FAILURE; IMPROVED ACUTE COPD EXACERBATION ; HX OF TOBACCO ABUSE REPORTED; IMPROVED DYSPHAGIA.? ? SECONDARY? TO CVA.; PEG TUBE PLANNED ; SURGERY ON BOARD RECENT? FRONTAL/PATIETAL LOBES CVA?; MONITOR CLOSELY HYPERTENSION PER HISTORY.? IV METOPROLOL POSSIBLE? OPIOID SEEKING BEHAVIOR.? NURSING TO BE AWARE ANEMIA.? LIKELY OF CHRONIC DISEASE HYPONATREMIA.? MILD PAROXYSMAL ATRIAL FIBRILLATION WITH RVR; IMPROVED HR ON DIGOXIN BPH PER HISTORY OVERWEIGHT.? BMI OF 28 POLYMYALGIA RHEUMATICA PER HISTORY. OSTEOARTHRITIS PER HISTORY ?PLAN PATIENT WITH GOOD RESULT FROM DIGOXIN HOWEVER HE REMAIN NPO, WILL CONTINUE DIGOXIN INTRAVENOUSLY FOR NOW LEVEL CHECKED TODAY WAS REASONABLE PATIENT SHOWING IMPROVEMENT HE HAS BEEN ON NASAL CANNULA SINCE THIS MORNING SPOKE TO NURSING AND WILL TRY TO CONTINUING TITRATE OFF OXYGEN SUPPLEMENT IF INDICATED LABS ARE FAIRLY STABLE WILL CONTINUE TO FOLLOW CLOSELY SPOKE TO SURGICAL TEAM TODAY PLAN FOR PEG TUBE PLACEMENT FOR THE MORNING 09/30 09/28 WILL START ON DIGOXIN? TODAY FOR BETTER RATE CONTROL CONTINUE METOPROLOL AND CARDIZEM PRN STEVEN ALSO START ON DOXY FOR SUSPECTED COPDE WILL ATROVEN AND STEROIDS WELL REPEAT CHEST FILM SHOWING IMPROVEMENT CONTINUE FLUIDS AT LOW RATE ; WILL INCREASE TO 50CC/HR WORKING WITH RT TO? TITRATE O2 AGGRESSIVE PULM TOILETING ADDITIONAL MANAGEMENT PER CLINICAL COURSE 09/27 PATIENT EVALUATED BY THE SURGICAL TEAM TODAY PLAN TO TAKE PATIENT TO THE OR TO MORE FOR PEG TUBE PLACEMENT SPOKE TO HIS AT BEDSIDE AND SHE REMAINED AGREEABLE TO THE PROCEDURE NO SIGN OF ACUTE COMPLICATION OTHERWISE REMAIN NPO ?CONTINUE TO MONITOR CLOSELY ?AGAIN NURSING TO MAINTAIN STRICT ?ASPIRATION PRECAUTIONS ?PATIENT WILL NEED TO FOLLOW UP WITH ENT? ALSO OUTPATIENT ?THERE IS REPORTED PAIN WITH SWALLOWING WELL ?DIURETIC VISUALIZATION THROUGH? ENDOSCOPIC ? EVALUATION COULD HELP ON? DETERMINING? THE ETIOLOGY OF HIS REPORTED? COMPLAINT ?ADDITIONAL MANAGEMENT PER CLINICAL COURSE ?DISCHARGE ONCE ABLE TO TOLERATE TUBE FEEDING AND CLEARED BY SURGICAL TEAM 09/26 ?SPEECH THERAPY REQUESTED PATIENT TO REMAIN NPO ?PATIENT WILL NEED A PEG TUBE FOR ALTERNATIVE TO WHICH HE IS AGREEABLE TO ?WILL CONSULT SURGERY FOR RECOMMENDATIONS AND POSSIBLE PEG TUBE PLACEMENT ?IV FLUID ORDERED ? WHILE NPO.? KCL WITH NORMAL SALINE ? HYPONATREMIA IS ALREADY EXHIBITED? ALL LABS ? ?MONITOR CLOSELY FOR ANY SIGN OF FLUID OVERLOAD ?MONITOR LAB CLOSELY ?KIDNEY AND LIVER FUNCTION FAIRLY STABLE ?PATIENT HAS INCREASED SECRETIONS WILL ADD SCOPOLAMINE PATCH WELL NEEDED SUBLINGUAL ATROPINE ?MAINTAIN ASPIRATION PRECAUTION AT ALL TIMES ?DAILY LAB TO FOLLOW FOR NOW ?CONVERT HOME MEDS TO IV ROUTE IF POSSIBLE ?ADDITIONAL MANAGEMENT PER CLINICAL COURSE Time Spent With Patient Critical Care time: I spent a total of [] minutes of critical care time on this patient's care today; this time is exclusive of procedural time. Quality VTE Deep Vein Thrombosis/Pulmonary Embolism Present on Admission: No
[2021-09-29] MEDS: SCOPOLAMINE 1 PATCH TOP (17:08)
[2021-09-29] MEDS: MORPHINE 2 MG/ML INJ IV (18:21)
--- NOTE | 2021-09-29 19:19 | PC.NURSE ---
Pt is AxOx4, needs 2 person assistance with bathroom. VSS, pt is on now on RA and sats 96%. Pt is NPO with ice chips. quintero is draining christina color urine. Pt c/o pain on throat 06/18 and it is local so using lemon swab for it. It was effective. Pt requested PRN Morphine at night for general pain. It was effective. Plan is pt is going to have PEG placement tomorrow. No other changes. Tele is on and pt has routine IV Metoprolol so pt's HR was controlled well today. No other changes.
[2021-09-29] MEDS: levoFLOXacin 750 MG/150 ML PIGGYBACK 100 MG IV (19:35)
[2021-09-29] MEDS: KETOROLAC 30 MG/ML VIAL 15 MG IV (22:30)
[2021-09-29] MEDS: DOXYCYCLINE 100 MG in SODIUM CHLORIDE 0.9% 100 ML IV (23:53)
[2021-09-30] VITALS (10 sets, daily range): BP systolic 111–121; BP diastolic 59–76; PULSE 82–94; RESP 15–22; TEMP 36.2–36.5; O2SAT 93–97; BMI 26.5
[2021-09-30] MEDS: KCL 20 MEQ IN NS 1,000 ML 50 MEQ IV (00:16)
[2021-09-30] MEDS: METOPROLOL TARTRATE 5 MG/5 ML INJ IV ×4 (00:57→19:45)
--- NOTE | 2021-09-30 03:01 | PC.NURSE ---
2300: assumed care of patient from BRUCE OCONNOR. patient is a/o, voices needs. 1p ADL/mobility assistance. HOB is up >30 degrees. spo2 96% on RA. has suctioning available at bedside, clearing oral /pharyngeal secretions independantly. requested more lemon glycerine swabs, which were given. tolerating ice chips. no s/sx of aspiration noted thus far. continues w/ NS 20K@50cc/hour via LFA PIV. warm blanket wrapped around arm for comfort. NPO x ice chips for PEG placement in AM. tele: afib 85 Fareed is overnight in room.
[2021-09-30 04:03] LABS: Add Manual Diff / Slide Review NO; Basophils Absolute Auto 0 /uL (0-100); Basophils Percent Auto 0.1 % (0-2); Eosinophils Absolute Auto 0 /uL (0-450); Hematocrit 39.4 % (41-53); Hemoglobin 13.3 g/dL (13.5-17.5); Lymphocytes Absolute Auto 200 /uL (1100-4500); Lymphocytes Percent Auto 2.5 % (25-40); Mean Corpuscular HGB Conc 33.7 % (30-36); Mean Corpuscular Hemoglobin 32.5 PG (26-34); Mean Corpuscular Volume 96.5 fL (80-100); Monocytes Absolute Auto 200 /uL (0-900); Monocytes Percent Auto 1.9 % (3-14); Neutrophils Absolute Auto 9100 /uL (1500-7000); Neutrophils Percent Auto 95.5 % (50-75); Platelet Count 253 X10^3/uL (150-400); Red Blood Cell Count 4.09 X10^6/uL (4.5-5.9); Red Cell Distribution Width 16.5 % (11.6-14.8); White Blood Cell Count 9.6 X10^3/uL (4.5-11.0)
[2021-09-30 04:05] LABS: Alanine Aminotransferase 23 IU/L (<50); Albumin 3.1 g/dL (3.5-5.0); Albumin Globulin Ratio 1.1 (1.0-2.8); Alkaline Phosphatase 66 U/L (38-126); Aspartate Aminotransferase 27 IU/L (17-59); Bilirubin Total 1.7 mg/dL (0.2-1.3); Blood Urea Nitrogen 48 mg/dL (9-20); Calcium 8.7 mg/dL (8.4-10.2); Carbon Dioxide 25 mmol/L (22-32); Chloride 107 mmol/L (98-107); Estimated Glomerular Filt Rate > 60 mL/min (>60); Globulin 2.8 g/dL (1.7-4.1); Glucose 220 mg/dL (80-110); HEMOLYSIS < 15 (0-50); Magnesium 2.1 mg/dL (1.6-2.3); Phosphorous 3.3 mg/dL (2.3-3.7); Potassium 4.5 mmol/L (3.4-5.1); Sodium 139 mmol/L (137-145); Total Protein 5.9 g/dL (6.3-8.2)
[2021-09-30] MEDS: LACTATED RINGERS 1,000 ML 42 ML IV (07:34)
--- NOTE | 2021-09-30 07:41 | PM.PREOP ---
Pre-operative Note Interval Note History & Physical reviewed/Exam performed by Physician: Yes Changes to H&P: No
--- NOTE | 2021-09-30 08:14 | SUR.HOLD ---
Questionable INR POC reading, waiting for lab results. Patiend A&O, self suctioning, positive sense of humor.
--- NOTE | 2021-09-30 08:54 | SUR.HOLD ---
INR was redrawn (done by the lab). Patient waiting for OR, has call light and suction. Updated regarding delay.
[2021-09-30 08:59] LABS: Prothrombin Time 111.8 SECONDS (10.1-12.7)
[2021-09-30 09:03] LABS: INR 9.2 (0.9-1.3)
--- NOTE | 2021-09-30 09:06 | SUR.PREOP ---
INR reported to health technical writer to be 9.24 from laboratory technologist. MD Shelton and Graciela notified and aware. Per MD Shelton, PEG placement surgery is cancelled. Pt updated on plan.
--- NOTE | 2021-09-30 09:27 | SUR.HOLD ---
0915 Patient informed that surgery is cancelled, that INR is elevated, and that he will be followed up by the hospitalist. Returned to patient to room, suction and call light given, present, hand off to AC RN.
[2021-09-30] MEDS: PANTOPRAZOLE 40 MG VIAL IV ×2 (10:13→20:16)
[2021-09-30] MEDS: FUROSEMIDE 20 MG/2 ML VIAL IV (10:13)
[2021-09-30 10:51] LABS: Prothrombin Time 114.1 SECONDS (10.1-12.7)
[2021-09-30 10:56] LABS: INR 9.4 (0.9-1.3)
[2021-09-30] MEDS: DIGOXIN 500 MCG/2 ML AMPUL 125 MCG IV (11:03)
[2021-09-30] MEDS: IPRATROPIUM 0.5 MG/2.5 ML NEB INH ×2 (13:06→19:38)
[2021-09-30] MEDS: DOXYCYCLINE 100 MG in SODIUM CHLORIDE 0.9% 100 ML IV (13:14)
--- NOTE | 2021-09-30 13:20 | ST.IPDYTX ---
Visit Care Team Role Provider Type Michelet Irby MD Primary Care Provider Physician Specialty: Family Practice Address: [address] [place] [address], [address] Email: [email or web address] Bry Shelton MD Other Providers Physician Specialty: General Surgery Address: [address] [place] [address], [address] Email: [email or web address] Kirit Khan MD Other Providers Physician Specialty: Ear, Nose, Throat Address: [address] [place] [address], [address] Email: [email or web address] Bradly Landa MD Family Provider Non-Staff Specialty: [facility] Practice Address: [address] [place] [address], [address] Email: Sharda Simmons DO Emergency Provider Physician Referring Provider Specialty: Emergency Medicine Address: [address] [place] [address], [address] Email: [email or web address] Guy Admit Provider Physician Attending Provider Specialty: Internal Medicine Address: [address] [place] [address], [address] Email: [email or web address] ACCOUNTANT Dysphagia Treatment SEC ACCOUNTANT Dysphagia Treatment Start: 09/28/21 12:46 Freq: Status: Active Protocol: Document 09/30/21 13:03 MARIO (Rec: 09/30/21 13:20 ZS [id number]) Dysphagia Treatment Session Time Visit Start Time 11:30 Visit Stop Time 12:00 Total Visit Minutes 30 Setting Assessment Location Acute Care Visit Type Note Type Treatment Note Next Note Type Next Note Type Treatment Note Patient Information Identification Type Name,ID Card Subjective Observations The pt was seated upright in bed awake with oral suction wand available, which he used occasionally during the session to eliminate phlegm. His was present. PEG tube was not placed today, as pt had elevated INR. He reported increased coughing today due to residue from slightly melted ice chips taken this morning. Treatment Liquids Trialed Ice chips,Thin Solids Trialed Puree Administration Type Self-Feeding Oral Strategies Upright at 90 degrees Pharyngeal Strategies Chin Tuck Treatment Activities Pt was able to perform dry volitional swallow. Oral trials included glycerin swab, moist sponge swab, thin water through open cup, and flavored applesauce via spoon. Consumption of water from sponge swab resulted in delayed cough x1 (about 5 minutes) and pt reported cough was due to residue from ice chips taken this morning. No cough noted following trials of thin water or applesauce. Pt independently used swallow safety strategies across all trials. Education was provided RE safe swallow strategies including chin tuck, refraining from talking with bolus in mouth, reducing distractions, remaining upright during and for 20 minutes after meals, waiting to eat when coughing, and use of effortful swallow. The pt's vocal quality was percieved to be much improved today, with increased strength , stamina and clarity. Pt and informed that PEG tube placement will take place with diet upgrade and education. All questions were answered and both the pt and verbalized understanding. The pt's reiterated to the pt the importance of following all recommendations to avoid another episode of aspiration pneumonia. The pt agreed. Assessment Patient Response to Treatment Good Rehab Potential Good Assessment of Improvement Significant improvement was seen today, both with swallow and voice. He is being compliant with exercise program and able to implement safe swallow strategies. Both he and his demonstrated excellent understanding of all education and training provided today; provided appropriate cueing to assist the pt in following strategies . The pt's voice was perceived to be stronger, clearer and with better stamina. This indicates improved VF adduction and breath support for voice and speech. The pt is an excellent candidate for continued dysphagia and dysphonia therapy. Recommend SNF or HH placement after hospital stay until pt/ spouse are sufficiently trained with tube feeding and pt demonstrates sufficient medical stability. Recommend transition to outpatient care thereafter, either in- person in their community or via teletherapy. Diet Recommendations Recommendations Upgrade Diet Order Liquids Order Thin Diet Order Dysphagia Blenderized Medication Recommendations Crushed in Carrier Additional Dietary Needs Reminders to Use Strategies Aspiration Precautions Recommended Precautions Upright at 90 Degrees,Chin Tuck,Effortful Swallow Treatment Plan Placement Recommendation after Discharge Jail Facility,Home with Home Health Appropriate for Continued Therapy Yes Therapy Recommendations Ongoing assessment of swallow and voice; exercises to improve both Dysphagia Goals 1. The pt will perform exercises to improve swallow safety and vocal quality. 2. The pt will demonstrate swallow safety sufficient to resume oral intake. 3. The pt will produce voice WFL. Follow Up Plan Daily over hospital course Referrals/Other Recommended Referrals ENT Consult
[2021-09-30] MEDS: MORPHINE 2 MG/ML INJ IV ×2 (16:23→20:48)
--- NOTE | 2021-09-30 18:02 | PC.NURSE ---
Pt is AxO4, needs 2 person assistance with bathroom. VSS, pt is on RA and sats mid 90s. Pt's surgery is cancelled today due to high INR-9.4. Speech therapy evaluated pt and approved of puree and thin liquid diet. Pt is doing well wit puree and thin. Pt had lunch and dinner today. No a-fib episode on Tele today. Jain is draining christina color urine. No other changes. We'll continue monitor.
--- NOTE | 2021-09-30 19:37 | P.PN_ITS ---
Subjective Subjective Date Patient Seen: 09/30/21 Interval history: ?THIS IS A 86-YEAR-OLD MALE WITH A RECENT CVA. CVA ? REPORTED AT THE END OF AUGUST OF THIS YEAR. HE HAS SIGNIFICANT DYSPHAGIA A RESULT? OF THE STROKE ?BLOOD TO THE HOSPITAL WITH? DIFFICULTY SWALLOWING WELL INTRAVASCULAR FLUID DEPLETION ?FAILLED? SWALLOW EVAL ON 09/26.? AGREEABLE? FOR A PEG TUBE FOR TEMPORARY FILLING ?TODAY PATIENT DID NOT HAVE ANY SIGNIFICANT COMPLAINTS PROCEDURE WAS CANCELED TODAY DUE TO COAGULOPATHY. INR WAS SUPRATHERAPEUTIC. FOR UNCLEAR REASON PATIENT HAS NOT RECEIVED COUMADIN SINCE ADMITTED TO THE HOSPITAL ALMOST A WEEK AGO. ? Exam Vital Signs (past 8 hours): - 09/30/21 13:07 09/30/21 16:04 Temperature 97.7 F Pulse Rate 82 82 Respiratory Rate 18 16 Blood Pressure 111/62 Pulse Oximetry 93 96 Fraction of Inspired Oxygen 21 Oxygen Delivery Method Room Air Oxygen Flow Rate 0 Narrative Exam Narrative: NO ACUTE DISTRESS.? PATIENT IS ALERT ORIENTED X3. HEAD ATRAUMATIC NORMOCEPHALIC NECK : SUPPLE WITHOUT ADENOPATHY NO CAROTID BRUITS EYE:? EOMI, PERRLA, NORMAL CONJUNCTIVA; NO JAUNDICE CHEST:? REGULAR RATE.? ? NO RUBS.? PMI IS NON DISPLACED.? NO MURMURS; NORMAL S1- S2 PULMONARY:? DECREASED BS OVER THE BASES.? MILD BIBASILAR CRACKLES NOTED; NO INCREASED DULLNESS TO PERCUSSION ABDOMEN: ? OBESE BUTSOFT.? NONTENDER.? NONDISTENDED.? BOWEL SOUNDS ARE PRESENT IN ALL 4 QUADRANTS.? NO MASS. EXTREMITIES: ? 2+ NONPITTING EXTREMITY EDEMA..? NO CYANOSIS CLUBBING NOTED. NEURO: ? NO DIFFICULTY WITH SPEECH.? DIFFICULTY WITH SWALLOWING APPRECIATED. ? NO NEUROLOGICAL DEFICITS TO THE EXTREMITIES. ? SENSATION INTACT TO ALL EXTREMITIES. MSK:? NORMAL RANGE OF MOTION FOR AGE.? NO JOINT EFFUSION. SKIN:? NORMAL FOR ETHNICITY; NO ECCHYMOSIS.? NO LESION. ? GOOD? TURGOR.; NO RASHES :? NORMAL EXTERNAL GENITALIA. PSYCH :? ALERT AWAKE ORIENTED X3.? MILDLY ANXIOUS.? POOR INSIGHT Objective Labs Result Diagrams: 09/30/21 03:41 09/30/21 03:41 Labs: Laboratory Results - last 24 hr 09/30/21 09/30/21 09/30/21 03:41 03:41 08:41 WBC 9.6 D RBC 4.09 L Hgb 13.3 L Hct 39.4 L MCV 96.5 MCH 32.5 MCHC 33.7 RDW 16.5 H Plt Count 253 Neut % (Auto) 95.5 H Lymph % (Auto) 2.5 L [place] % (Auto) 1.9 L Eos % (Auto) 0.0 L Baso % (Auto) 0.1 Neut # (Auto) 9100 H Lymph # (Auto) 200 L [place] # (Auto) 200 Eos # (Auto) 0 Baso # (Auto) 0 PT 111.8 H INR 9.2 H* Sodium 139 Potassium 4.5 Chloride 107 Carbon Dioxide 25 BUN 48 H Creatinine 0.96 Estimated GFR > 60 BUN/Creatinine Ratio 50.0 H Glucose 220 H Calcium 8.7 Phosphorus 3.3 Magnesium 2.1 Total Bilirubin 1.7 H AST 27 ALT 23 Alkaline Phosphatase 66 Total Protein 5.9 L Albumin 3.1 L Globulin 2.8 Albumin/Globulin Ratio 1.1 09/30/21 10:30 WBC RBC Hgb Hct MCV MCH MCHC RDW Plt Count Neut % (Auto) Lymph % (Auto) [place] % (Auto) Eos % (Auto) Baso % (Auto) Neut # (Auto) Lymph # (Auto) [place] # (Auto) Eos # (Auto) Baso # (Auto) PT 114.1 H INR 9.4 H* Sodium Potassium Chloride Carbon Dioxide BUN Creatinine Estimated GFR BUN/Creatinine Ratio Glucose Calcium Phosphorus Magnesium Total Bilirubin AST ALT Alkaline Phosphatase Total Protein Albumin Globulin Albumin/Globulin Ratio [facility] Medical History Age related cataract Ankle pain Anticoagulation goal of INR 2 to 3 Atrial fibrillation Atrial fibrillation Benign prostatic hyperplasia Chicken pox Cholelithiasis Chronic anticoagulation Chronic back pain COPD (chronic obstructive pulmonary disease) Gout Hearing loss Hemorrhoid History of gastric ulcer History of tobacco use Hyperlipidemia Hypertension Measles Mumps Obesity Osteoarthritis Pericarditis 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 Tinnitus Surgical History Anesthesia History of ankle surgery (~1965) History of appendectomy (~2018) History of cataract removal with insertion of prosthetic lens History of laparotomy (~2000) History of tonsillectomy (~1944) Family History Mother Hypertension Heart disease Diabetes mellitus Hyperlipidemia Father Hypertension Hyperlipidemia Grandmother Pneumonia Social History marital status: household members: spouse occupational status: previously employed Smoking Status: Former smoker alcohol intake: former substance use type: does not use Assessment & Plan Assessment & Plan narrative: IMPRESSION ACUTE HYPOXIC RESPIRATORY FAILURE? ON CHRONIC RESPIRATORY FAILURE; IMPROVED ACUTE COPD EXACERBATION ; HX OF TOBACCO ABUSE REPORTED; IMPROVED DYSPHAGIA.? ? SECONDARY? TO CVA.; PEG TUBE PLANNED ; SURGERY ON BOARD RECENT? FRONTAL/PATIETAL LOBES CVA?; MONITOR CLOSELY HYPERTENSION PER HISTORY.? IV METOPROLOL POSSIBLE? OPIOID SEEKING BEHAVIOR.? NURSING TO BE AWARE ANEMIA.? LIKELY OF CHRONIC DISEASE HYPONATREMIA.? MILD PAROXYSMAL ATRIAL FIBRILLATION? WITH RVR; IMPROVED HR ON DIGOXIN BPH PER HISTORY OVERWEIGHT.? BMI OF 28 POLYMYALGIA RHEUMATICA PER HISTORY. OSTEOARTHRITIS PER HISTORY SUPRATHERAPEUTIC INR. NOT BEEN ON COUMADIN SINCE ADMISSION MORE THAN 5 DAYS AGO ?PLAN PATIENT WAS SUPPOSED TO HAVE EEG TODAY HOWEVER THIS WAS CANCELED DUE TO HIS INR BEING SUPRATHERAPEUTIC HOWEVER PATIENT HAS NOT BEEN ON COUMADIN FOR MORE THAN 6 DAYS THE REASON OF THE SUPRATHERAPEUTIC IS UNCLEAR AT THIS TIME. IN ANY CASE SPOKE TO PATIENT AT LENGTH IN REGARD TO THE CASE WITH HIS AT BEDSIDE WAS RESTARTED ON ALL INTAKE PER SPEECH THERAPY RECOMMENDATIONS HE IS ON A GI SOFT DIET AT THIS TIME. WHICH HE IS TOLERATING FAIRLY WELL. I ADVISED PATIENT AGAINST A PEG TUBE AT THIS TIME HE IS AGREEABLE. IF DOWN THE ROAD, HE SHOW SIGN OF DECLINE THEN A PEG TO COULD BE RECONSIDERED IF HE CONTINUED TO IMPROVE, HE WILL BE DISCHARGED TO [facility]ILITY IF ABLE TO SECURE A BED COULD BE DISCHARGED IN NEXT 2-3 DAYS IF CLINICALLY INDICATED 09/29 ?PATIENT WITH GOOD RESULT FROM DIGOXIN ?HOWEVER HE REMAIN NPO, WILL CONTINUE DIGOXIN INTRAVENOUSLY FOR NOW ?LEVEL CHECKED TODAY WAS? REASONABLE ?PATIENT SHOWING IMPROVEMENT ?HE HAS BEEN ON NASAL CANNULA SINCE THIS MORNING ?SPOKE TO NURSING AND WILL TRY TO CONTINUING TITRATE OFF OXYGEN SUPPLEMENT IF INDICATED ?LABS ARE FAIRLY STABLE ?WILL CONTINUE TO FOLLOW CLOSELY ?SPOKE TO SURGICAL TEAM TODAY ?PLAN FOR PEG TUBE PLACEMENT FOR THE MORNING 09/30 ? 09/28 WILL START ON DIGOXIN? TODAY FOR BETTER RATE CONTROL CONTINUE METOPROLOL AND CARDIZEM PRN STEVEN ALSO START ON DOXY FOR SUSPECTED COPDE WILL ATROVEN AND STEROIDS WELL REPEAT CHEST FILM SHOWING IMPROVEMENT CONTINUE FLUIDS AT LOW RATE ; WILL INCREASE TO 50CC/HR WORKING WITH RT TO? TITRATE O2 AGGRESSIVE PULM TOILETING ADDITIONAL MANAGEMENT PER CLINICAL COURSE 09/27 PATIENT EVALUATED BY THE SURGICAL TEAM TODAY PLAN TO TAKE PATIENT TO THE OR TO MORE FOR PEG TUBE PLACEMENT SPOKE TO HIS AT BEDSIDE AND SHE REMAINED AGREEABLE TO THE PROCEDURE NO SIGN OF ACUTE COMPLICATION OTHERWISE REMAIN NPO ?CONTINUE TO MONITOR CLOSELY ?AGAIN NURSING TO MAINTAIN STRICT ?ASPIRATION PRECAUTIONS ?PATIENT WILL NEED TO FOLLOW UP WITH ENT? ALSO OUTPATIENT ?THERE IS REPORTED PAIN WITH SWALLOWING WELL ?DIURETIC VISUALIZATION THROUGH? ENDOSCOPIC ? EVALUATION COULD HELP ON? DETERMINING? THE ETIOLOGY OF HIS REPORTED? COMPLAINT ?ADDITIONAL MANAGEMENT PER CLINICAL COURSE ?DISCHARGE ONCE ABLE TO TOLERATE TUBE FEEDING AND CLEARED BY SURGICAL TEAM 09/26 ?SPEECH THERAPY REQUESTED PATIENT TO REMAIN NPO ?PATIENT WILL NEED A PEG TUBE FOR ALTERNATIVE TO WHICH HE IS AGREEABLE TO ?WILL CONSULT SURGERY FOR RECOMMENDATIONS AND POSSIBLE PEG TUBE PLACEMENT ?IV FLUID ORDERED ? WHILE NPO.? KCL WITH NORMAL SALINE ? HYPONATREMIA IS ALREADY EXHIBITED? ALL LABS ? ?MONITOR CLOSELY FOR ANY SIGN OF FLUID OVERLOAD ?MONITOR LAB CLOSELY ?KIDNEY AND LIVER FUNCTION FAIRLY STABLE ?PATIENT HAS INCREASED SECRETIONS WILL ADD SCOPOLAMINE PATCH WELL NEEDED SUBLINGUAL ATROPINE ?MAINTAIN ASPIRATION PRECAUTION AT ALL TIMES ?DAILY LAB TO FOLLOW FOR NOW ?CONVERT HOME MEDS TO IV ROUTE IF POSSIBLE ?ADDITIONAL MANAGEMENT PER CLINICAL COURSE Time Spent With Patient Critical Care time: I spent a total of [] minutes of critical care time on this patient's care today; this time is exclusive of procedural time. Quality VTE Deep Vein Thrombosis/Pulmonary Embolism Present on Admission: No
[2021-09-30] MEDS: levoFLOXacin 750 MG/150 ML PIGGYBACK 100 MG IV (20:16)
[2021-10-01] VITALS (13 sets, daily range): BP systolic 94–125; BP diastolic 51–75; PULSE 69–106; RESP 16–20; TEMP 35.7–36.6; O2SAT 94–97
[2021-10-01] MEDS: DOXYCYCLINE 100 MG in SODIUM CHLORIDE 0.9% 100 ML IV ×2 (00:13→12:05)
[2021-10-01] MEDS: METOPROLOL TARTRATE 5 MG/5 ML INJ IV ×3 (00:14→12:06)
[2021-10-01] MEDS: IPRATROPIUM 0.5 MG/2.5 ML NEB INH ×3 (01:22→19:49)
[2021-10-01 04:01] LABS: Add Manual Diff / Slide Review NO; Basophils Absolute Auto 0 /uL (0-100); Basophils Percent Auto 0.2 % (0-2); Eosinophils Absolute Auto 0 /uL (0-450); Hematocrit 38.3 % (41-53); Hemoglobin 13.2 g/dL (13.5-17.5); Lymphocytes Absolute Auto 200 /uL (1100-4500); Lymphocytes Percent Auto 1.9 % (25-40); Mean Corpuscular HGB Conc 34.5 % (30-36); Mean Corpuscular Volume 95.9 fL (80-100); Monocytes Absolute Auto 500 /uL (0-900); Monocytes Percent Auto 4.4 % (3-14); Neutrophils Absolute Auto 10000 /uL (1500-7000); Neutrophils Percent Auto 93.5 % (50-75); Platelet Count 226 X10^3/uL (150-400); Red Blood Cell Count 3.99 X10^6/uL (4.5-5.9); Red Cell Distribution Width 16.7 % (11.6-14.8); White Blood Cell Count 10.7 X10^3/uL (4.5-11.0)
[2021-10-01 04:12] LABS: Magnesium 2.2 mg/dL (1.6-2.3); Phosphorous 2.8 mg/dL (2.3-3.7)
[2021-10-01 04:13] LABS: Alanine Aminotransferase 25 IU/L (<50); Albumin 2.9 g/dL (3.5-5.0); Albumin Globulin Ratio 1.1 (1.0-2.8); Alkaline Phosphatase 61 U/L (38-126); Aspartate Aminotransferase 30 IU/L (17-59); BUN Creatinine Ratio 46.8 (6-22); Bilirubin Total 1.1 mg/dL (0.2-1.3); Blood Urea Nitrogen 44 mg/dL (9-20); Calcium 8.5 mg/dL (8.4-10.2); Carbon Dioxide 21 mmol/L (22-32); Chloride 105 mmol/L (98-107); Estimated Glomerular Filt Rate > 60 mL/min (>60); Globulin 2.6 g/dL (1.7-4.1); Glucose 240 mg/dL (80-110); HEMOLYSIS < 15 (0-50); Potassium 4.4 mmol/L (3.4-5.1); Sodium 134 mmol/L (137-145); Total Protein 5.5 g/dL (6.3-8.2)
--- NOTE | 2021-10-01 04:53 | PC.NURSE ---
Shift Note: Patient was alert and orientedx4, follows command, denies any pain/discomfort, maintained O2 sat >92% at room air, no distress noted, vital signs are stable and within acceptable limits. Patient tolerated oral intake with strict aspiration precautions maintained. Jain cath in placed with adequate urine output. Patient able to get up from bed with 1-person assist. Safety precautions maintained at all times.
--- NOTE | 2021-10-01 09:13 | DIET.CONS2 ---
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 Pt not getting PEG placed at this time and not taking nourishments via nutrition support NG tube so discontinuing order for tube feeding. Please reconsult nutrition if POC changes and TF desired. Pt consumed 100% dinner last night, dysphagia pureed c thins and enjoying breakfast without s/sx aspiration. Diet: 09/30/21 Dinner Dysphagia Diet Diet Modifications: Liquid consistency: Normal/Thin Food texture: Dysphagia Pureed Nutrition Percent Meal Consumed 100% 09/30/21 18:00 Percent Meal Consumed Pt is NPO 09/29/21 17:45 Percent Meal Consumed 2 cups worth of ice chips 09/29/21 14:00 Electronically Signed by: Rachelle Rutherford 10/01/21 09:13 Clinical Dietitian [address] [address]
[2021-10-01] MEDS: PANTOPRAZOLE 40 MG VIAL IV ×2 (09:20→20:57)
[2021-10-01] MEDS: FUROSEMIDE 20 MG/2 ML VIAL IV (09:20)
[2021-10-01] MEDS: DIGOXIN 500 MCG/2 ML AMPUL 125 MCG IV (09:29)
[2021-10-01] MEDS: KCL 20 MEQ IN NS 1,000 ML 50 MEQ IV (12:21)
--- NOTE | 2021-10-01 13:30 | PT.IIE ---
Current Diagnoses Pneumonitis due to inhalation of food and vomit (09/25/21) Surgery Performed Operation Date: 09/30/21 07:45 Actual Procedures p Peg Tube Insertion - Bry Shelton MD Surgical History (Last Reviewed 09/27/21 @ 08:17 by Bry Shelton MD) Anesthesia Medical History (Last Reviewed 09/27/21 @ 08:17 by Bry Shelton MD) Age related cataract Ankle pain Anticoagulation goal of INR 2 to 3 Atrial fibrillation Atrial fibrillation Benign prostatic hyperplasia Chicken pox Cholelithiasis Chronic anticoagulation Chronic back pain COPD (chronic obstructive pulmonary disease) Gout Hearing loss Hemorrhoid History of gastric ulcer History of tobacco use Hyperlipidemia Hypertension Measles Mumps Obesity Osteoarthritis Pericarditis 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 Tinnitus Physical Therapy Inpatient Evaluation/Re-Eval M1 PT/OT-IP Prior Functional Status Start: 10/01/21 15:09 Freq: NEEDED Status: Active Protocol: Document 10/01/21 13:30 AB (Rec: 10/01/21 15:22 AB [email or web address]) Medical Review Prior Functional Status Medical History Reviewed Yes Communication able to make needs known Mobility and Gait pt stated that he is independent with all mobilities and ambualtion without AD; uses SPC for long distance outdoor mobility Activities of Daily Living and IADL's spouse assists pt with showers Social History Household Members spouse Living Arrangements House Number of Floors (Floors) One Floor Number of Stairs To Enter/Railing? 3 steps with R rail to enter the house Home Environment Standard Height Toilet,Walk in Shower Home Equipment Front Wheel Walker,Straight Cane,Hand Held Shower,Grab Bars In Shower M2 PT-IP Current Condition Start: 10/01/21 15:09 Freq: NEEDED Status: Active Protocol: Document 10/01/21 13:30 AB (Rec: 10/01/21 15:22 AB [email or web address]) Physical Therapy Current Condition Current Condition Evaluation Date 10/01/21 Treatment Diagnosis late effects of CVA; difficulty in walking Onset Date 09/25/21 M3 PT-IP Subjective Start: 10/01/21 15:09 Freq: NEEDED Status: Active Protocol: Document 10/01/21 13:30 AB (Rec: 10/01/21 15:22 AB [email or web address]) Subjective Physical Therapy Visit Type Type Initial Evaluation Visit Start Time 13:30 Visit Stop Time 14:02 Total Visit Minutes 32 Number of OIL AND GAS WELL TREATMENT OPERATOR Visits 0 Physical Therapy Visit Comments Patient Comments agreeable to do PT Therapy Pain Assessment Pain Present Pain Present Denied Pain M4 PT-IP Mobility and Gait Start: 10/01/21 15:09 Freq: NEEDED Status: Active Protocol: Document 10/01/21 13:30 AB (Rec: 10/01/21 15:22 AB [id number]) PT-Bed Mobility Assessment Supine to Sit Supine to Sit Standby Assistance PT-Transfer Assessment Sit to and From Stand Sit to and from Stand Maximum Assistance,1 Person Assistance,Use of Upper Extremities Equipment Transfer Assistive Device Gait Belt,Front Wheeled Walker Orthotic/Prosthetic Devices or Brace: No Transfers Transfer Destination Chair Transfer Technique Stand Step Pivot Transfer Ability Level of Assist Maximum Assistance,1 Person Assistance,Use of Upper Extremities Comments Mobility Comments BP in supine: 112/62. completed supine to sit SBA. able to sit on EOB SBA. no c/o dizziness. (+) SOB, O2 sat checked: 94%. completed sit to stand max A and step transfer to chair using FWW max A and max cues. c/o lightheadedness . BP: 97/57 O2 sat:94%. checked BP again after ~ 2 min : 89/56. reclined pt on chair . not further activities conducted due to decreas in BP . positioned pt on the chair. call light and table placed within reach. PT-Balance Assessment Sitting Balance and Reactions Static Sitting Balance Ability Good Dynamic Sitting Balance Ability Good Standing Balance and Reactions Static Standing Balance Ability Fair Dynamic Standing Balance Ability Poor Device Used FWW M5 PT-IP Objective Assessments Start: 10/01/21 15:09 Freq: NEEDED Status: Active Protocol: Document 10/01/21 13:30 AB (Rec: 10/01/21 15:22 AB [email or web address]) Orientation Orientation/Cognition Level of Alertness Alert Orientation Name,Place,Situation Language Function Ability Hard of Hearing Safety Awareness Decreased Safety Awareness Memory Description Short Term Impaired Gross Range of Motion Lower Extremity ROM Assessment Within Functional Limits Strength Lower Extremity Strength Assessment Bilaterally Impaired Hip 4-/5 Knee 3+/5 Coordination Assessment Gross Coordination Gross Coordination WNL Sensation Assessment Sensation Gross Sensation WNL Muscle Tone Muscle Tone WNL Yes M6 PT-IP Treatment Start: 10/01/21 15:09 Freq: NEEDED Status: Active Protocol: Document 10/01/21 13:30 AB (Rec: 10/01/21 15:22 AB [id number]) Physical Therapy Treatment Education Education Provided Safety M7 PT-IP Assessment and Plan Start: 10/01/21 15:09 Freq: NEEDED Status: Active Protocol: Document 10/01/21 13:30 AB (Rec: 10/01/21 15:22 AB [email or web address]) PT Summary Assessment and Plan Potential Rehabilitation Potential Fair Status of Condition at Evaluation Evolving Summary Impairments Pain,ROM,Strength,Balance, Coordination,Sensation,Tone, Cognition,Bed Mobility, Transfers,Gait,Activity Tolerance Assessment Summary pt requiring max A using FWW for transfers but unable to tolerate much activity with decrease in BP from 112/62 in supine to 89/56 in sitting after transfers. pt will require SNF rehab at time. Goals Bed Mobility Goal Independent Transfer Goal Standby Assistance,Front Wheeled Walker Gait Goal Standby Assistance,Front Wheel Walker Gait Distance 100 Other Goals up/down 3 steps R rail ascending SBA Days to Meet Goals 10 Frequency of Treatment Frequency Of Treatment Once a Day Treatment Plan Physical Therapy Treatment Plan Bed Mobility Training,Transfer Training,Gait Training, Therapeutic Exercise,Balance Retraining,Discharge Planning, Hot or Cold Pack,Neuromuscular Re-ed,Coordination Retraining ,Manual Therapy Precautions Other Precautions falls Recommendations To Nursing Amount of Assist Needed 2 Person Assist Discharge Recommendations PT Discharge Recommendations SNF Rehab Transportation Needs at Discharge Wheelchair/Cabulance
--- NOTE | 2021-10-01 13:54 | ST.IPDYTX ---
Visit Care Team Role Provider Type Michelet Irby MD Primary Care Provider Physician Specialty: Family Practice Address: [address] [place] [address], [address] Email: [email or web address] Bry Shelton MD Other Providers Physician Specialty: General Surgery Address: [address] [place] [address], [address] Email: [email or web address] Kirit Khan MD Other Providers Physician Specialty: Ear, Nose, Throat Address: [address] [place] [address], [id number] Email: [email or web address] Bradly Landa MD Family Provider Non-Staff Specialty: [facility] [employer] [facility] Practice Address: [address] [place] [address], [address] Email: Sharda Simmons DO Emergency Provider Physician Referring Provider Specialty: Emergency Medicine Address: [address] [place] [address], [address] Email: [email or web address] Guy Admit Provider Physician Attending Provider Specialty: Internal Medicine Address: [address] [place] [address], [facility] Email: [email or web address] WAN SUPPORT SPECIALIST Dysphagia Treatment WAN SUPPORT SPECIALIST Dysphagia Treatment Start: 09/28/21 12:46 Freq: Status: Active Protocol: Document 10/01/21 13:47 MARIO (Rec: 10/01/21 13:54 ZS [id number]) Dysphagia Treatment Session Time Visit Start Time 12:30 Visit Stop Time 12:45 Total Visit Minutes 15 Setting Assessment Location Acute Care Visit Type Note Type Treatment Note Next Note Type Next Note Type Treatment Note Patient Information Identification Type Name,ID Card Subjective Observations The pt was seated upright in bed awake with noon meal of pureed turkey, mashed potatoes , applesauce, and pudding in front of him. He reported decreased coughing today. Pt added he needs to focus on eating and stated he became distracted while eating earlier and began coughing, though was able to clear independently. Pt reported he had not completed his home exercises today as he usually does them with his and she is not present today. Treatment Liquids Trialed Thin Solids Trialed Puree Administration Type Self-Feeding Oral Strategies Upright at 90 degrees Pharyngeal Strategies Chin Tuck Treatment Activities Observed pt eat noon meal of pureed turkey, mashed potatoes , applesauce, and pudding. Assessment Patient Response to Treatment Good Rehab Potential Good Assessment of Improvement Significant improvement was seen today, both with swallow and voice. He is being compliant with exercise program, though reported he did not complete exercises yet today as his has been out. Pt independently implemented safe swallow strategies while eating and exhibited no overt signs or symptoms of aspiration. Per MD , PEG tube is not recommended at this time and will not be placed. The pt is an excellent candidate for continued dysphagia and dysphonia therapy. Recommend transition to outpatient care, either in- person in their community or via teletherapy. Diet Recommendations Recommendations Continue Current Diet Liquids Order Thin Diet Order Dysphagia Blenderized Medication Recommendations Crushed in Carrier Additional Dietary Needs Reminders to Use Strategies Aspiration Precautions Recommended Precautions Upright at 90 Degrees,Chin Tuck,Effortful Swallow Treatment Plan Placement Recommendation after Discharge [facility] Facility,Home with Home Health Appropriate for Continued Therapy Yes Therapy Recommendations Ongoing assessment of swallow and voice; exercises to improve both Dysphagia Goals 1. The pt will perform exercises to improve swallow safety and vocal quality. 2. The pt will demonstrate swallow safety sufficient to resume oral intake. 3. The pt will produce voice WFL. Follow Up Plan Daily over hospital course Referrals/Other Recommended Referrals ENT Consult
--- NOTE | 2021-10-01 14:51 | PM.PN.1 ---
Subjective Subjective Date Patient Seen: 10/01/21 Interval history: THIS IS A 86-YEAR-OLD MALE WITH A RECENT CVA. CVA ? REPORTED AT THE END OF AUGUST OF THIS YEAR. HE HAS SIGNIFICANT DYSPHAGIA A RESULT? OF THE STROKE ?BLOOD TO THE HOSPITAL WITH? DIFFICULTY SWALLOWING WELL INTRAVASCULAR FLUID DEPLETION ?FAILLED? SWALLOW EVAL ON 09/26.? AGREEABLE? FOR A PEG TUBE PLACEMENT OF TUBE CANCELLED ON 09/30 DUE TO SUPRATHERAPEUTIC INR?? PATIENT BACK ON ORAL PER SPEECH OF 09/30 PEG PUT ON HOLD INDEFINITELY UNLESS ABSOLUTELY NEEDED ?TODAY PATIENT DID NOT HAVE ANY SIGNIFICANT COMPLAINTS NO SIGNIFICANT ISSUES OVERNIGHT NO NAUSEA. NO VOMITING NO CHEST PAIN. NO CHEST PRESSURE Exam Vital Signs (past 8 hours): - 10/01/21 08:00 10/01/21 14:16 Temperature 96.9 F L Pulse Rate 85 Respiratory Rate 18 Blood Pressure 116/69 Pulse Oximetry 96 94 Fraction of Inspired Oxygen 21 Oxygen Delivery Method Room Air Oxygen Flow Rate 0 Narrative Exam Narrative: NO ACUTE DISTRESS.? PATIENT IS ALERT ORIENTED X3. HEAD ATRAUMATIC NORMOCEPHALIC NECK : SUPPLE WITHOUT ADENOPATHY NO CAROTID BRUITS EYE:? EOMI, PERRLA, NORMAL CONJUNCTIVA; NO JAUNDICE CHEST:? REGULAR RATE.? ? NO RUBS.? PMI IS NON DISPLACED.? NO MURMURS; NORMAL S1-S2 PULMONARY:? DECREASED BS OVER THE BASES.? MILD BIBASILAR CRACKLES NOTED; NO INCREASED DULLNESS TO PERCUSSION ABDOMEN: ? OBESE BUTSOFT.? NONTENDER.? NONDISTENDED.? BOWEL SOUNDS ARE PRESENT IN ALL 4 QUADRANTS.? NO MASS. EXTREMITIES: ? 2+ NONPITTING EXTREMITY EDEMA..? NO CYANOSIS CLUBBING NOTED. NEURO: ? NO DIFFICULTY WITH SPEECH.? DIFFICULTY WITH SWALLOWING APPRECIATED. ? NO NEUROLOGICAL DEFICITS TO THE EXTREMITIES. ? SENSATION INTACT TO ALL EXTREMITIES. MSK:? NORMAL RANGE OF MOTION FOR AGE.? NO JOINT EFFUSION. SKIN:? NORMAL FOR ETHNICITY; NO ECCHYMOSIS.? NO LESION. ? GOOD? TURGOR.; NO RASHES :? NORMAL EXTERNAL GENITALIA. PSYCH :? ALERT AWAKE ORIENTED X3.? MILDLY ANXIOUS.? POOR INSIGHT Objective Labs Result Diagrams: 10/01/21 03:36 10/01/21 03:36 Labs: Laboratory Results - last 24 hr 10/01/21 10/01/21 10/01/21 03:36 03:36 03:36 WBC 10.7 RBC 3.99 L Hgb 13.2 L Hct 38.3 L MCV 95.9 MCH 33.0 MCHC 34.5 RDW 16.7 H Plt Count 226 Neut % (Auto) 93.5 H Lymph % (Auto) 1.9 L [place] % (Auto) 4.4 Eos % (Auto) 0.0 L Baso % (Auto) 0.2 Neut # (Auto) 23914 H Lymph # (Auto) 200 L [place] # (Auto) 500 Eos # (Auto) 0 Baso # (Auto) 0 Sodium 134 L Potassium 4.4 Chloride 105 Carbon Dioxide 21 L BUN 44 H Creatinine 0.94 Estimated GFR > 60 BUN/Creatinine Ratio 46.8 H Glucose 240 H Calcium 8.5 Phosphorus 2.8 Magnesium 2.2 Total Bilirubin 1.1 AST 30 ALT 25 Alkaline Phosphatase 61 Total Protein 5.5 L Albumin 2.9 L Globulin 2.6 Albumin/Globulin Ratio 1.1 PFSH Medical History Age related cataract Ankle pain Anticoagulation goal of INR 2 to 3 Atrial fibrillation Atrial fibrillation Benign prostatic hyperplasia Chicken pox Cholelithiasis Chronic anticoagulation Chronic back pain COPD (chronic obstructive pulmonary disease) Gout Hearing loss Hemorrhoid History of gastric ulcer History of tobacco use Hyperlipidemia Hypertension Measles Mumps Obesity Osteoarthritis Pericarditis 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 Tinnitus Surgical History Anesthesia History of ankle surgery (~1965) History of appendectomy (~2018) History of cataract removal with insertion of prosthetic lens History of laparotomy (~2000) History of tonsillectomy (~1944) Family History Mother Hypertension Heart disease Diabetes mellitus Hyperlipidemia Father Hypertension Hyperlipidemia Grandmother Pneumonia Social History marital status: household members: spouse occupational status: previously employed Smoking Status: Former smoker alcohol intake: former substance use type: does not use Assessment & Plan Assessment & Plan narrative: IMPRESSION ACUTE HYPOXIC RESPIRATORY FAILURE? ON CHRONIC RESPIRATORY FAILURE; IMPROVED ACUTE COPD EXACERBATION ; HX OF TOBACCO ABUSE REPORTED; IMPROVED DYSPHAGIA.? ? SECONDARY? TO CVA.; PEG TUBE PLANNED ; SURGERY ON BOARD RECENT? FRONTAL/PATIETAL LOBES CVA ; MONITOR CLOSELY HYPERTENSION PER HISTORY.? IV METOPROLOL POSSIBLE? OPIOID SEEKING BEHAVIOR.? NURSING TO BE AWARE ANEMIA.? LIKELY OF CHRONIC DISEASE HYPONATREMIA.? MILD PAROXYSMAL ATRIAL FIBRILLATION? WITH RVR; IMPROVED HR ON DIGOXIN BPH PER HISTORY OVERWEIGHT.? BMI OF 28 POLYMYALGIA RHEUMATICA PER HISTORY. OSTEOARTHRITIS PER HISTORY SUPRATHERAPEUTIC INR.? NOT BEEN ON COUMADIN SINCE ADMISSION MORE THAN 6 DAYS AGO ?PLAN WILL CHECK AN INR THIS MORNING CONTINUE TO HOLD COUMADIN WILL CONTINUE ORAL INTAKE PER SPEECH THERAPY RECOMMENDATIONS MONITOR CLOSELY FOR ANY SIGNS OF ASPIRATION HE APPEARS TO BE TOLERATING P.O. INTAKE WELL SPOKE TO CASE MANAGEMENT IN REGARD TO DISCHARGE PLANNING PATIENT TO BE EVALUATED BY PHYSICAL AND OCCUPATIONAL THERAPY IF RECOMMENDED, HE COULD BE REFERRED TO GROUP HOME FACILITY PATIENT HOME MEDICATION WILL BE RESTARTED TODAY CONTINUE DIGOXIN SINCE THIS APPEARED TO BE ADEQUATE IN CONTROLING HIS RATE WILL CHECK A LEVEL IN THE AM MORNING DC 1-2 DAYS IF STABLE 09/30 PATIENT WAS SUPPOSED TO HAVE EEG TODAY HOWEVER THIS WAS CANCELED DUE TO HIS INR BEING SUPRATHERAPEUTIC HOWEVER PATIENT HAS NOT BEEN ON COUMADIN FOR MORE THAN 6 DAYS THE REASON OF THE SUPRATHERAPEUTIC IS UNCLEAR AT THIS TIME. IN ANY CASE SPOKE TO PATIENT AT LENGTH IN REGARD TO THE CASE WITH HIS AT BEDSIDE WAS RESTARTED ON ALL INTAKE PER SPEECH THERAPY RECOMMENDATIONS HE IS ON A GI SOFT DIET AT THIS TIME.? WHICH HE IS TOLERATING FAIRLY WELL. I ADVISED PATIENT AGAINST A PEG TUBE AT THIS TIME HE IS AGREEABLE. IF DOWN THE ROAD, HE SHOW SIGN OF DECLINE THEN A PEG TO COULD BE RECONSIDERED IF HE CONTINUED TO IMPROVE, HE WILL BE DISCHARGED TO GROUP HOME FACILITY IF ABLE TO SECURE A BED COULD BE DISCHARGED IN NEXT 2-3 DAYS IF CLINICALLY INDICATED 09/29 ?PATIENT WITH GOOD RESULT FROM DIGOXIN ?HOWEVER HE REMAIN NPO, WILL CONTINUE DIGOXIN INTRAVENOUSLY FOR NOW ?LEVEL CHECKED TODAY WAS? REASONABLE ?PATIENT SHOWING IMPROVEMENT ?HE HAS BEEN ON NASAL CANNULA SINCE THIS MORNING ?SPOKE TO NURSING AND WILL TRY TO CONTINUING TITRATE OFF OXYGEN SUPPLEMENT IF INDICATED ?LABS ARE FAIRLY STABLE ?WILL CONTINUE TO FOLLOW CLOSELY ?SPOKE TO SURGICAL TEAM TODAY ?PLAN FOR PEG TUBE PLACEMENT FOR THE MORNING 09/30 ? 09/28 WILL START ON DIGOXIN? TODAY FOR BETTER RATE CONTROL CONTINUE METOPROLOL AND CARDIZEM PRN STEVEN ALSO START ON DOXY FOR SUSPECTED COPDE WILL ATROVEN AND STEROIDS WELL REPEAT CHEST FILM SHOWING IMPROVEMENT CONTINUE FLUIDS AT LOW RATE ; WILL INCREASE TO 50CC/HR WORKING WITH RT TO? TITRATE O2 AGGRESSIVE PULM TOILETING ADDITIONAL MANAGEMENT PER CLINICAL COURSE 09/27 PATIENT EVALUATED BY THE SURGICAL TEAM TODAY PLAN TO TAKE PATIENT TO THE OR TO MORE FOR PEG TUBE PLACEMENT SPOKE TO HIS AT BEDSIDE AND SHE REMAINED AGREEABLE TO THE PROCEDURE NO SIGN OF ACUTE COMPLICATION OTHERWISE REMAIN NPO ?CONTINUE TO MONITOR CLOSELY ?AGAIN NURSING TO MAINTAIN STRICT ?ASPIRATION PRECAUTIONS ?PATIENT WILL NEED TO FOLLOW UP WITH ENT? ALSO OUTPATIENT ?THERE IS REPORTED PAIN WITH SWALLOWING WELL ?DIURETIC VISUALIZATION THROUGH? ENDOSCOPIC? ?EVALUATION COULD HELP ON? DETERMINING? THE ETIOLOGY OF HIS REPORTED? COMPLAINT ?ADDITIONAL MANAGEMENT PER CLINICAL COURSE Time Spent With Patient Critical Care time: I spent a total of [] minutes of critical care time on this patient's care today; this time is exclusive of procedural time. Quality VTE Deep Vein Thrombosis/Pulmonary Embolism Present on Admission: No
--- NOTE | 2021-10-01 15:25 | OT.IPNOTE ---
Attempted to see pt for OT eval and pt states too tired from getting up earlier and wanting to wait until tomorrow. To check on pt tomorrow for OT eval.
[2021-10-01 15:48] LABS: Prothrombin Time 128.7 SECONDS (10.1-12.7)
--- NOTE | 2021-10-01 15:48 | CM.DPNOTE ---
DCP Note Placed call to [facility]endy; updated that patient not getting surgery, does still need SNF upon DC and spouse and dtr Melania requesting this. Dtr states if [facility] does not auth, she will pay for SNF stay October explains that patient will not have therapies if [facility] does not authorize SNF stay; this will need to be reviewed w/family. Wendy can provide room and board and nursing care PT/OT orders placed today. Awaiting further discussion w/October/Wendy re acceptance and attempt at [facility] SNF auth vs private payment (?) JW
[2021-10-01 15:51] LABS: INR 10.6 (0.9-1.3)
[2021-10-01] MEDS: HYDROCODONE/ACET 5/325 TABLET 1 TAB PO ×2 (16:48→20:56)
[2021-10-01] MEDS: TAMSULOSIN 0.4 MG CAPSULE 0.8 MG PO (16:50)
[2021-10-01] MEDS: DIGOXIN 0.125 MG TABLET PO (16:51)
[2021-10-01] MEDS: PHYTONADIONE (VIT K1) 10 MG in SODIUM CHLORIDE 0.9% 100 ML 202 MG IV (18:47)
[2021-10-01] MEDS: ALBUTEROL 2.5 MG/3 ML NEB (ADULT) INH (19:49)
[2021-10-01] MEDS: BUDESONIDE 0.5 MG/2 ML NEB INH (19:49)
--- NOTE | 2021-10-01 20:51 | PC.NURSE ---
Addendum entered by Filomena Sahu R.N. 10/02/21 04:12: HR improved after ivp digoxin given (HR in the 90's now). Pt continues to cough throughout the night. states some of the water that was left on the ice went down the wrong pipe. Pt on RA sating in the mids 90s. Original Note: pt HR has been elevated 120-140's pt state he isn't feeling it. PT bp is 100/51, pt has an order for prn diltiazen, spoke to Dr. May about it, will hold dilt for now. pt getting is dig level check now and if is wnl will give digoxin ivp. holding FFP FOR NOW UNTIL HR IS MORE UNDER CONTROL.
[2021-10-01] MEDS: ASCORBIC ACID 500 MG TABLET PO (20:55)
[2021-10-01] MEDS: ATORVASTATIN 20 MG TABLET 10 MG PO (20:55)
[2021-10-01] MEDS: GABAPENTIN 100 MG CAPSULE PO (20:57)
[2021-10-01] MEDS: predniSONE 5 MG TABLET 15 MG PO (20:57)
[2021-10-01 21:06] LABS: Digoxin 1.1 ng/mL (0.8-2.0)
[2021-10-01] MEDS: DIGOXIN 500 MCG/2 ML AMPUL 250 MCG IV (21:36)
[2021-10-02] VITALS (10 sets, daily range): BP systolic 94–140; BP diastolic 56–82; PULSE 72–124; RESP 16–24; TEMP 35.7–36.6; O2SAT 94–97
--- NOTE | 2021-10-02 | DI.RAD.S_ITS ---
PROCEDURE: XR CHEST 1V INDICATIONS: Concern for pneumonia TECHNIQUE: One view of the chest was acquired. COMPARISON: [facility], CR, XR CHEST 1V, 09/28/2021, 15:46. FINDINGS: Surgical changes and devices: None. Lungs and pleura: Asymmetrically elevated left hemidiaphragm with associated horizontal atelectatic change in the left lower lung. Minor, stable vertically oriented opacities in the medial right lung base. No new visible consolidations, effusion, or pneumothorax. Mediastinum: Cardiomediastinal contour is stable. Bones and chest wall: No suspicious bony lesions. Overlying soft tissues appear unremarkable. IMPRESSION: 1. No change to bibasilar atelectatic changes. 2. No findings to suggest acute pneumonia. Dictated by: Cookie Wolf M.D. on 10/02/2021 at 12:52 Approved by: Cookie Wolf M.D. on 10/02/2021 at 12:53
[2021-10-02] MEDS: IPRATROPIUM 0.5 MG/2.5 ML NEB INH ×3 (02:04→11:30)
[2021-10-02] MEDS: HYDROCODONE/ACET 5/325 TABLET 1 TAB PO ×4 (03:18→23:45)
[2021-10-02 03:22] LABS: Hematocrit 39.5 % (41-53); Hemoglobin 13.1 g/dL (13.5-17.5); Mean Corpuscular HGB Conc 33.2 % (30-36); Mean Corpuscular Hemoglobin 32.3 PG (26-34); Mean Corpuscular Volume 97.2 fL (80-100); Platelet Count 204 X10^3/uL (150-400); Red Blood Cell Count 4.07 X10^6/uL (4.5-5.9); Red Cell Distribution Width 16.5 % (11.6-14.8); White Blood Cell Count 14.9 X10^3/uL (4.5-11.0)
[2021-10-02 03:31] LABS: Alanine Aminotransferase 43 IU/L (<50); Albumin 3.1 g/dL (3.5-5.0); Albumin Globulin Ratio 1.1 (1.0-2.8); Alkaline Phosphatase 65 U/L (38-126); Aspartate Aminotransferase 56 IU/L (17-59); BUN Creatinine Ratio 41.7 (6-22); Bilirubin Total 1.7 mg/dL (0.2-1.3); Blood Urea Nitrogen 35 mg/dL (9-20); Calcium 8.7 mg/dL (8.4-10.2); Carbon Dioxide 22 mmol/L (22-32); Chloride 103 mmol/L (98-107); Estimated Glomerular Filt Rate > 60 mL/min (>60); Globulin 2.7 g/dL (1.7-4.1); Glucose 276 mg/dL (80-110); HEMOLYSIS 15 (0-50); Potassium 4.4 mmol/L (3.4-5.1); Prothrombin Time 22.7 SECONDS (10.1-12.7); Sodium 134 mmol/L (137-145); Total Protein 5.8 g/dL (6.3-8.2)
[2021-10-02 03:32] LABS: Magnesium 2.3 mg/dL (1.6-2.3); Phosphorous 2.9 mg/dL (2.3-3.7)
[2021-10-02 03:36] LABS: Add Manual Diff / Slide Review YES
[2021-10-02 03:51] LABS: Digoxin 1.9 ng/mL (0.8-2.0)
[2021-10-02 04:11] LABS: Anisocytosis 1+
[2021-10-02 04:12] LABS: Neutrophils Absolute Manual 13857 /uL (3000-5900); Total Cells Counted 100
[2021-10-02] MEDS: ALBUTEROL 2.5 MG/3 ML NEB (ADULT) INH ×2 (08:12→11:30)
[2021-10-02] MEDS: BUDESONIDE 0.5 MG/2 ML NEB INH (08:12)
[2021-10-02] MEDS: MULTIVITAMIN 1 TABLET 1 TAB PO (09:45)
[2021-10-02] MEDS: ASCORBIC ACID 500 MG TABLET PO (09:45)
[2021-10-02] MEDS: MAGNESIUM CHLORIDE 64 MG TABLET PO (09:45)
[2021-10-02] MEDS: GABAPENTIN 100 MG CAPSULE PO ×3 (09:45→20:40)
[2021-10-02] MEDS: allopurinoL 300 MG TABLET PO (09:45)
[2021-10-02] MEDS: METOPROLOL ER 50 MG TABLET PO (09:45)
[2021-10-02] MEDS: FINASTERIDE 5 MG TABLET PO (09:46)
[2021-10-02] MEDS: PANTOPRAZOLE 40 MG VIAL IV (09:46)
--- NOTE | 2021-10-02 09:50 | PT-IP ANOTE ---
Attempted to see pt at 9:50, pt stated he is not ready and requested later treatment. Will check back around lunch time.
--- NOTE | 2021-10-02 09:55 | OT.IPNOTE ---
Pt states not ready to be seen yet and wanting to rest more, to check on pt again around lunch time
[2021-10-02] MEDS: SODIUM CHLORIDE 0.9% 500 ML 175 ML IV (11:07)
--- NOTE | 2021-10-02 11:29 | PT.IPTN ---
Current Diagnoses Pneumonitis due to inhalation of food and vomit (09/25/21) Surgery Performed Operation Date: 09/30/21 07:45 Actual Procedures p Peg Tube Insertion - Bry Shelton MD Physical Therapy Treatment Note M2 PT-IP Current Condition Start: 10/01/21 15:09 Freq: NEEDED Status: Active Protocol: Document 10/01/21 13:30 AB (Rec: 10/01/21 15:22 AB [id number]) Physical Therapy Current Condition Current Condition Evaluation Date 10/01/21 Treatment Diagnosis late effects of CVA; difficulty in walking Onset Date 09/25/21 M3 PT-IP Subjective Start: 10/01/21 15:09 Freq: NEEDED Status: Active Protocol: Document 10/02/21 11:10 KS (Rec: 10/02/21 12:00 KS [id number]) Subjective Physical Therapy Visit Type Type Treatment Note Visit Start Time 11:10 Visit Stop Time 11:29 Total Visit Minutes 19 Notes co-treat w/ OT Number of CATALOG LIBRARY ASSISTANT Visits 1 Physical Therapy Visit Comments Patient Comments agreeable to do PT M4 PT-IP Mobility and Gait Start: 10/01/21 15:09 Freq: NEEDED Status: Active Protocol: Document 10/02/21 11:10 [place] (Rec: 10/02/21 12:00 [place] [id number]) PT-Bed Mobility Assessment Supine to Sit Supine to Sit Contact Guard Assistance,Head of Bed Elevated Sit to Supine Sit to Supine Minimal Assistance,1 Person Assistance Scooting Scooting to Edge of Bed Standby Assistance PT-Transfer Assessment Sit to and From Stand Sit to and from Stand Minimal Assistance,1 Person Assistance,Use of Upper Extremities Equipment Transfer Assistive Device Gait Belt,Front Wheeled Walker Orthotic/Prosthetic Devices or Brace: No Transfers Transfer Destination Bed Transfer Technique Lateral Scoot Comments Mobility Comments Pt in bed upon arrival and BP: 89/54 and then 91/58 in supine, pt denied dizziness. Pt sup<>sit CGA w/ HOB elevated and scooted to EOB. Pts report mild dizziness upon sitting and BP: 89/44 and then 100/60. Pt initially requesting to use toilet and refusing BSC. Pt sit<>stand w/ Min A w/ FWW and reported increased dizziness/ lightheadedness. Unable to tolerate standing for full BP reading and sat back down, BP: 91/49. Min A for sit<>sup for LE elevation into bed, BP: 99 /60 and pt still c/o dizziness . Pt left in bed w/ all needs in reach and alarm on. RN aware of symptomatic low BP. Gait Assessment Comments Gait Comments Unable to assess d/t symptomatic low BP. PT-Balance Assessment Sitting Balance and Reactions Static Sitting Balance Ability Good Dynamic Sitting Balance Ability Good Standing Balance and Reactions Static Standing Balance Ability Fair Device Used FWW M5 PT-IP Objective Assessments Start: 10/01/21 15:09 Freq: NEEDED Status: Active Protocol: Document 10/01/21 13:30 AB (Rec: 10/01/21 15:22 AB [id number]) Orientation Orientation/Cognition Level of Alertness Alert Orientation Name,Place,Situation Language Function Ability Hard of Hearing Safety Awareness Decreased Safety Awareness Memory Description Short Term Impaired Gross Range of Motion Lower Extremity ROM Assessment Within Functional Limits Strength Lower Extremity Strength Assessment Bilaterally Impaired Hip 4-/5 Knee 3+/5 Coordination Assessment Gross Coordination Gross Coordination WNL Sensation Assessment Sensation Gross Sensation WNL Muscle Tone Muscle Tone WNL Yes M6 PT-IP Treatment Start: 10/01/21 15:09 Freq: NEEDED Status: Active Protocol: Document 10/02/21 11:10 KS (Rec: 10/02/21 12:00 KS [id number]) Physical Therapy Treatment Education Education Provided Safety M7 PT-IP Assessment and Plan Start: 10/01/21 15:09 Freq: NEEDED Status: Active Protocol: Document 10/02/21 11:10 KS (Rec: 10/02/21 12:00 KS [id number]) PT Summary Assessment and Plan Potential Rehabilitation Potential Fair Status of Condition at Evaluation Evolving Summary Impairments Pain,ROM,Strength,Balance, Coordination,Sensation,Tone, Cognition,Bed Mobility, Transfers,Gait,Activity Tolerance Assessment Summary Pt remains limited in mobility due to symptomatic low BP w/ positional changes and weakness. CGA to Min A for bed mobility and Min A for sit<> stand w/ FWW however unable to progress gait, time standing, or perform transfer due to dizziness. Pt able to scoot laterally towards HOB when sitting. He will require SNF to improve strength and functional mobility. Goals Bed Mobility Goal Independent Transfer Goal Standby Assistance,Front Wheeled Walker Gait Goal Standby Assistance,Front Wheel Walker Gait Distance 100 Other Goals up/down 3 steps R rail ascending SBA Days to Meet Goals 10 Frequency of Treatment Frequency Of Treatment Once a Day Treatment Plan Physical Therapy Treatment Plan Bed Mobility Training,Transfer Training,Gait Training, Therapeutic Exercise,Balance Retraining,Discharge Planning, Hot or Cold Pack,Neuromuscular Re-ed,Coordination Retraining ,Manual Therapy Precautions Other Precautions falls Recommendations To Nursing Amount of Assist Needed 2 Person Assist Discharge Recommendations PT Discharge Recommendations SNF Rehab Transportation Needs at Discharge Wheelchair/Cabulance
--- NOTE | 2021-10-02 11:33 | OT.IP.EVAL ---
Current Diagnoses Pneumonitis due to inhalation of food and vomit (09/25/21) Surgery Performed Operation Date: 09/30/21 07:45 Actual Procedures p Peg Tube Insertion - Bry Shelton MD Past Medical History (Last Reviewed 09/27/21 @ 08:17 by Bry Shelton MD) Age related cataract Ankle pain Anticoagulation goal of INR 2 to 3 Atrial fibrillation Atrial fibrillation Benign prostatic hyperplasia Chicken pox Cholelithiasis Chronic anticoagulation Chronic back pain COPD (chronic obstructive pulmonary disease) Gout Hearing loss Hemorrhoid History of ankle surgery (~1964) History of appendectomy (~2017) History of cataract removal with insertion of prosthetic lens History of gastric ulcer History of laparotomy (~1999) History of tobacco use History of tonsillectomy (~194) Hyperlipidemia Hypertension Measles Mumps Obesity Osteoarthritis Pericarditis 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 Tinnitus Surgical History (Last Reviewed 09/27/21 @ 08:17 by Bry Shelton MD) Anesthesia History of ankle surgery (~1964) History of appendectomy (~2017) History of cataract removal with insertion of prosthetic lens History of laparotomy (~1999) History of tonsillectomy (~194) Occupational Therapy Inpatient Evaluation/Re-Eval M1 PT/OT-IP Prior Functional Status Start: 10/01/21 15:09 Freq: NEEDED Status: Active Protocol: Document 10/02/21 11:10 [facility] (Rec: 10/02/21 12:21 [facility] [id number]) Medical Review Prior Functional Status Medical History Reviewed Yes Communication able to make needs known Mobility and Gait pt stated that he is independent with all mobilities and ambulation without AD; uses SPC for long distance outdoor mobility Activities of Daily Living and IADL's spouse assists pt with showers and needing more assist as pt was getting weaker. Social History Household Members spouse Living Arrangements House Number of Floors (Floors) One Floor Number of Stairs To Enter/Railing? 3 steps with R rail to enter the house Home Environment Standard Height Toilet,Walk in Shower Home Equipment Front Wheel Walker,Straight Cane,Hand Held Shower,Grab Bars In Shower M2 OT-IP Current Condition Start: 10/02/21 12:06 Freq: Status: Active Protocol: Document 10/02/21 11:10 [facility] (Rec: 10/02/21 12:21 [facility] [id number]) Occupational Therapy Current Condition Current Condition Evaluation Date 10/02/21 Treatment Diagnosis Acute hypoxic respiratory failure, COPD exacerbation M3 OT- IP Subjective and Pain Start: 10/02/21 12:06 Freq: Status: Active Protocol: Document 10/02/21 11:10 [facility] (Rec: 10/02/21 12:21 [facility] [id number]) OT- Subjective Occupational Therapy Visit Type Type Initial Evaluation Visit Start Time 11:10 Visit Stop Time 11:33 Total Visit Minutes 23 Occupational Therapy Visit Comments Patient Comments Pt initially too tired and wanting to get up before lunch time. Pt agreed get up with OT/SLIDE FASTENERS INSPECTOR. Patient/Caregiver Goals TO get better. OT Pain Assessment Pain When Pain Assessed At Rest Pain Present Pain Present Denied Pain M4 OT- IP ADL's Start: 10/02/21 12:06 Freq: Status: Active Protocol: Document 10/02/21 11:10 [facility] (Rec: 10/02/21 12:21 [facility] [id number]) OT [id number] Comments OT Self-Feeding Comments Not at meal time. Pt states does not like pureed eggs but able to feed himself. OT ADL-Grooming Comments OT Grooming Comments Pt able to wash his face after set-up. OT ADL-Oral Care Comments Oral Care Comments NOt performed. OT ADL-Dressing Comments OT Dressing Comments Not performed. OT ADL-Toileting Comments OT Toileting Comments Pt wanting to use the bathroom , unable to get to the bathroom due to being dizzy and states lately just having gas. OT ADL-Bathing Comments OT Bathing Comments Sponge bath more appropriate at this time due to being dizzy when up. M5 OT- IP IADL's Start: 10/02/21 12:06 Freq: Status: Active Protocol: Document 10/02/21 11:10 [facility] (Rec: 10/02/21 12:21 [facility] [id number]) OT-Instrumental Activities of Daily Living Home Safety Awareness Home Safety Comments Pt states prior was able to care for himself for all needs . M6 OT- IP Functional Cognition Start: 10/02/21 12:06 Freq: Status: Active Protocol: Document 10/02/21 11:10 [facility] (Rec: 10/02/21 12:21 [facility] [id number]) Cognitive Factors Limiting Selfcare Function Cognitive Ability Level of Alertness Alert Patient Orientation Name,Place,Situation Attention Span Ability Capable of Focused Attention, Capable of Sustained Attention Ability to Follow Commands Able to Follow One Step Commands Safety Awareness Underestimates Need for Assistance Cognitive Comments Cognitive Assessment Comments Pt a bit impulsive and but able to follow commands for needs. Pt initially insistent on going to use the bathroom, however once he realized that he was orthostatic while standing agreed to just get back in bed. OT- Vision and Hearing OT- Hearing Assessment OT- Hearing Assessment WFL OT- Vision Assessment Visual Acuity Glasses For Reading M7 OT- IP Mobility and Balance Start: 10/02/21 12:06 Freq: Status: Active Protocol: Document 10/02/21 11:10 [facility] (Rec: 10/02/21 12:21 [facility] [id number]) OT- Bed Mobility Assessment Supine to Sit Supine to Sit Assist Contact Guard Assistance Sit to Supine Sit to Supine Assist Minimal Assistance Scooting Scooting to Edge of Bed Contact Guard Assistance OT-Transfer Assessment Sit to and From Stand Sit to and from Stand Minimal Assistance Comments Mobility Comments BP supine 89/54, 92/58, sitting 89/44 and feeling symptomatic, after standing 91 /47 and back into supine 99/66 . Pt CGA for bed mobility and assist to stand with FWW at this time. OT- Balance Assessment Sitting Balance and Reactions Static Sitting Balance Ability Good Dynamic Sitting Balance Ability Good Standing Balance and Reactions Static Standing Balance Ability Fair M8 OT- IP Objective Assessments Start: 10/02/21 12:06 Freq: Status: Active Protocol: Document 10/02/21 11:10 [facility] (Rec: 10/02/21 12:21 [facility] [id number]) OT Strength Comments Strength Comments WFl for transfer needs. OT-Muscle Tone Assessment Muscle Tone WNL Yes M9 OT- IP Assessment and Plan Start: 10/02/21 12:06 Freq: Status: Active Protocol: Document 10/02/21 11:10 [facility] (Rec: 10/02/21 12:21 [facility] [id number]) OT Summary Assessment and Plan Potential Rehabilitation Potential Good Analytic Complexity at Evaluation Moderate Summary OT Impairments Strength,Balance,Functional Mobility,Self-Feeding,Grooming ,Dressing,Toileting,Bathing, Toilet Transfers,Shower Transfers,Activity Tolerance Progress Towards Goals Slow Progress due to Medical Issues,Slow Progress due to Activity Tolerance Assessment Summary Pt MOD complexity and main barriers are decreased activity tolerance, weakness, and now needing assist for all ADl and mobility needs. Pt having orthrostatic symptoms today on OT eval and therefore limited ability to participate at this time. Goals Self-Feeding Goal Independent Grooming Goal Independent Dressing Goal Independent Toileting Goal Independent Bathing Goal Independent Toilet Transfer Goal Independent Shower Transfer Goal Independent Days to Meet Goals 30 Frequency of Treatment Frequency Of Treatment Once a Day Treatment Plan OT Treatment Plan ADL Training,Functional Cognition Training,Functional Mobility,Patient/Family Education,Discharge Planning Other Treatment Recommendations and Next Grooming while standing Treatment Focus pending BP. Discharge Recommendations OT Discharge Recommendations SNF Rehab Transportation Needs at Discharge Wheelchair/Cabulance
[2021-10-02] MEDS: PIPERACILLIN/TAZO 3.375 GM in SODIUM CHLORIDE 0.9% 100 ML IV ×2 (12:56→20:41)
--- NOTE | 2021-10-02 13:19 | ST.IPDYTX ---
Visit Care Team Role Provider Type Michelet Irby MD Primary Care Provider Physician Specialty: Family Practice Address: [address] [place] [address], [id number] Email: [email or web address] Bry Shelton MD Other Providers Physician Specialty: General Surgery Address: [address] [place] [address], [id number] Email: [email or web address] Kirit Khan MD Other Providers Physician Specialty: Ear, Nose, Throat Address: [address] [place] [address], [address] Email: [email or web address] Bradly Landa MD Family Provider Non-Staff Specialty: [facility] Practice Address: [address] [place] [address], [address] Email: Sharda Simmons DO Emergency Provider Physician Referring Provider Specialty: Emergency Medicine Address: [address] [place] [address], [address] Email: [email or web address] Admit Provider Physician Attending Provider Specialty: Internal Medicine Address: [address] [place] [address], [id number] Email: [email or web address] [email or web address] Dysphagia Treatment DIRECTOR CORPORATE SALES Dysphagia Treatment Start: 09/28/21 12:46 Freq: Status: Active Protocol: Document 10/02/21 13:11 MARIO (Rec: 10/02/21 13:19 ZS [id number]) Dysphagia Treatment Session Time Visit Start Time 12:00 Visit Stop Time 12:30 Total Visit Minutes 30 Setting Assessment Location Acute Care Visit Type Note Type Treatment Note Next Note Type Next Note Type Treatment Note Patient Information Identification Type Name,ID Card Subjective Observations The pt was seated upright in bed awake with oral suction wand available, which he used occasionally during the session to eliminate phlegm. His was present. NSG reported elevated white blood cell count and heart rate in addition to pt being slightly septic. Treatment Liquids Trialed Ice chips,Thin Administration Type Self-Feeding Oral Strategies Upright at 90 degrees Pharyngeal Strategies Chin Tuck Treatment Activities Completed oral exercises from home program and provided education regarding aspiration and swallow safety. Assessment Patient Response to Treatment Good Rehab Potential Good Assessment of Improvement Increased coughing was seen today, though pt reports this is due to completing exercises rather than swallowing. He is being compliant with exercise program, and demonstrated increased vocal quality and volume. Pt independently implemented safe swallow strategies while eating and exhibited no overt signs or symptoms of aspiration. He completed home practice exercises independently. Coughing observed with /k/ exercise and provided education and options for alternative exercises to reduce coughing. Pt reported anxiety related to aspiration and pain on cough. Provided education regarding aspiration and offered options to ease pain following cough. Recommend transition to outpatient care, either in- person in their community or via teletherapy. Diet Recommendations Recommendations Continue Current Diet Liquids Order Thin Diet Order Dysphagia Blenderized Medication Recommendations Crushed in Carrier Additional Dietary Needs Reminders to Use Strategies Aspiration Precautions Recommended Precautions Upright at 90 Degrees,Chin Tuck,Effortful Swallow Treatment Plan Placement Recommendation after Discharge Alf Facility,Home with Home Health Appropriate for Continued Therapy Yes Therapy Recommendations Ongoing assessment of swallow and voice; exercises to improve both Dysphagia Goals 1. The pt will perform exercises to improve swallow safety and vocal quality. 2. The pt will demonstrate swallow safety sufficient to resume oral intake. 3. The pt will produce voice WFL. Follow Up Plan Daily over hospital course Referrals/Other Recommended Referrals ENT Consult
[2021-10-02 13:32] LABS: Appearance Urine UA CLOUDY; Bilirubin Urine UA NEGATIVE (NEGATIVE); Color Urine UA YELLOW; Glucose Urine UA 1+ g/dL (Negative); Ketones Urine UA NEGATIVE (NEGATIVE); Leukocyte Esterase Urine UA NEGATIVE (NEGATIVE); Nitrite Urine UA NEGATIVE (Negative); Occult Blood Urine UA 3+ (Negative); Protein Urine UA TRACE (Negative); Specific Gravity Urine UA 1.015 (1.000-1.035); Urobilinogen Urine UA 0.2 E.U./dL (0.2)
[2021-10-02 13:42] LABS: RBC Urine 30-100/HPF (0-5/HPF)
[2021-10-02 13:43] LABS: Amorphous Sediment Urine 1+; Bacteria Urine None Seen; Culture Indicated Urine Cult Not Indicated; Mucus Urine 1+ (Negative); Squamous Epithelial Cell Urine 0-1 /HPF (0-5/HPF); WBC Urine 1-5/HPF (0-5/HPF)
--- NOTE | 2021-10-02 14:39 | PM.PN.1 ---
Subjective Subjective Interval history: The patient reports good PO intake. He denies any issues with defecation/urination. He denies any acute complaints. Exam Vital Signs (past 8 hours): - 10/02/21 07:30 10/02/21 08:12 10/02/21 09:32 Temperature 96.3 F L Pulse Rate 72 84 95 H Respiratory Rate 16 16 Blood Pressure 140/82 94/56 L Pulse Oximetry 95 94 10/02/21 09:45 10/02/21 11:34 10/02/21 12:45 Temperature 97.0 F L Pulse Rate 105 H 101 H 124 H Respiratory Rate 16 16 Blood Pressure 94/56 L 95/58 L Pulse Oximetry 94 96 Fraction of Inspired Oxygen 21 Oxygen Delivery Method Room Air Oxygen Flow Rate 0 Const Other: Patient sitting up comfortably upon my entering the room, in no apparent acute distress, with at bedside Eyes Other: No scleral icterus appreciated Resp Other: Diminished breath sounds bilaterally with no adventitious breath sounds appreciated Cardio Other: Irregular rhythm with tachycardic rate, with normal S1 and S2 heart sounds, and no extra heart sounds or murmurs appreciated GI Other: Soft, non-distended, non-tender, bowel sounds present Skin Other: No grossly abnormal skin lesions noted Extrem Other: Palpable dorsalis pedis bilaterally without peripheral edema Objective Labs Result Diagrams: 10/02/21 03:10 10/02/21 03:10 Labs: Laboratory Results - last 24 hr 10/01/21 10/01/21 10/01/21 15:05 15:05 18:35 WBC RBC Hgb Hct MCV MCH MCHC RDW Plt Count Neut % (Auto) Lymph % (Auto) [place] % (Auto) Eos % (Auto) Baso % (Auto) Lymph # (Auto) [place] # (Auto) Baso # (Auto) Total Counted Seg Neutrophils % Band Neutrophils % Lymphocytes % (Manual) Monocytes % (Manual) Neutrophils # (Manual) RBC Morphology Anisocytosis PT 128.7 H D INR 10.6 H* Sodium Potassium Chloride Carbon Dioxide BUN Creatinine Estimated GFR BUN/Creatinine Ratio Glucose Calcium Phosphorus Magnesium Total Bilirubin AST ALT Alkaline Phosphatase Total Protein Albumin Globulin Albumin/Globulin Ratio Urine Color Urine Appearance Urine pH Ur Specific [place] Urine Protein Urine Glucose (UA) Urine Ketones Urine Occult Blood Urine Nitrate Urine Bilirubin Urine Urobilinogen Ur Leukocyte Esterase Urine RBC Urine WBC Ur Squamous Epith Cells Amorphous Sediment Urine Bacteria Urine Mucus Ur Culture Indicated? Digoxin 1.1 Blood Type AB Positive 10/02/21 10/02/21 10/02/21 03:10 03:10 03:10 WBC 14.9 H RBC 4.07 L Hgb 13.1 L Hct 39.5 L MCV 97.2 MCH 32.3 MCHC 33.2 RDW 16.5 H Plt Count 204 Neut % (Auto) Not Reportable Lymph % (Auto) Not Reportable [place] % (Auto) Not Reportable Eos % (Auto) Not Reportable Baso % (Auto) Not Reportable Lymph # (Auto) Not Reportable [place] # (Auto) Not Reportable Baso # (Auto) Not Reportable Total Counted 100 Seg Neutrophils % 91.0 H Band Neutrophils % 2.0 L Lymphocytes % (Manual) 3.0 L Monocytes % (Manual) 4.0 Neutrophils # (Manual) [address] H RBC Morphology See below Anisocytosis 1+ H PT 22.7 H D INR 2.0 H Sodium Potassium Chloride Carbon Dioxide BUN Creatinine Estimated GFR BUN/Creatinine Ratio Glucose Calcium Phosphorus 2.9 Magnesium 2.3 Total Bilirubin AST ALT Alkaline Phosphatase Total Protein Albumin Globulin Albumin/Globulin Ratio Urine Color Urine Appearance Urine pH Ur Specific [place] Urine Protein Urine Glucose (UA) Urine Ketones Urine Occult Blood Urine Nitrate Urine Bilirubin Urine Urobilinogen Ur Leukocyte Esterase Urine RBC Urine WBC Ur Squamous Epith Cells Amorphous Sediment Urine Bacteria Urine Mucus Ur Culture Indicated? Digoxin Blood Type 10/02/21 10/02/21 10/02/21 03:10 03:10 13:29 WBC RBC Hgb Hct MCV MCH MCHC RDW Plt Count Neut % (Auto) Lymph % (Auto) [place] % (Auto) Eos % (Auto) Baso % (Auto) Lymph # (Auto) [place] # (Auto) Baso # (Auto) Total Counted Seg Neutrophils % Band Neutrophils % Lymphocytes % (Manual) Monocytes % (Manual) Neutrophils # (Manual) RBC Morphology Anisocytosis PT INR Sodium 134 L Potassium 4.4 Chloride 103 Carbon Dioxide 22 BUN 35 H Creatinine 0.84 Estimated GFR > 60 BUN/Creatinine Ratio 41.7 H Glucose 276 H Calcium 8.7 Phosphorus Magnesium Total Bilirubin 1.7 H AST 56 ALT 43 Alkaline Phosphatase 65 Total Protein 5.8 L Albumin 3.1 L Globulin 2.7 Albumin/Globulin Ratio 1.1 Urine Color Yellow Urine Appearance Cloudy Urine pH 6.0 Ur Specific [place] 1.015 Urine Protein Trace H Urine Glucose (UA) 1+ H Urine Ketones Negative Urine Occult Blood 3+ H Urine Nitrate Negative Urine Bilirubin Negative Urine Urobilinogen 0.2 Ur Leukocyte Esterase Negative Urine RBC 30-100/hpf H Urine WBC 1-5/hpf Ur Squamous Epith Cells 0-1 /hpf Amorphous Sediment 1+ Urine Bacteria None seen Urine Mucus 1+ H Ur Culture Indicated? Cult not indicated Digoxin 1.9 D Blood Type PFSH Medical History Age related cataract Ankle pain Anticoagulation goal of INR 2 to 3 Atrial fibrillation Atrial fibrillation Benign prostatic hyperplasia Chicken pox Cholelithiasis Chronic anticoagulation Chronic back pain COPD (chronic obstructive pulmonary disease) Gout Hearing loss Hemorrhoid History of gastric ulcer History of tobacco use Hyperlipidemia Hypertension Measles Mumps Obesity Osteoarthritis Pericarditis 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 Tinnitus Surgical History Anesthesia History of ankle surgery (~1965) History of appendectomy (~2018) History of cataract removal with insertion of prosthetic lens History of laparotomy (~1999) History of tonsillectomy (~1944) Family History Mother Hypertension Heart disease Diabetes mellitus Hyperlipidemia Father Hypertension Hyperlipidemia Grandmother Pneumonia Social History marital status: household members: spouse occupational status: previously employed Smoking Status: Former smoker alcohol intake: former substance use type: does not use Assessment & Plan Assessment & Plan narrative: Assessment: 1. Dysphagia, likely due to recent CVA 2. Recent bilateral frontal/parietal CVA's, likely cardioembolic 3. Hospital-acquired pneumonia 4. Atrial fibrillation, paroxysmal 5. Hypertension 6. Supratherapeutic INR on warfarin, improving 7. Polymyalgia rheumatica 8. BPH Plan: 1. The patient initially failed swallow eval but then passed, foregoing the need for PEG tube. He is due to undergo endoscopy and laryngoscopy as an outpatient. Continue home atherosclerotic protecting meds. 2. This was likely brought on by a fib. There are not appreciable physical or language deficits, with the exception of dysphagia, which is improving. 3. Will start IV vancomcyin and IV Zosyn on September 02. 4. INR currently therapeutic at 2.2. If this is non-valvular a fib, can likely start Eliquis 5 mg bid after INR subtherapeutic. Toprol 50 mg daily for rate control. Will stop digoxin, as pt has preserved EF. 5. Will continue home losartain 25 mg daily, amlodipine 5 mg daily, Aldactone 25 mg daily. 6. Initally received IV vitamin K, as it was thought he would require PEG tube. He then passed swallow evaluation. 7. Patient is on chronic prednisone at home and will continue. 8. Will continue home BPH meds. VTE prophylaxis: Hold for now given INR Code: Limited I have utilized all available immediate resources to obtain, update, or review the patient's current medications. Time Spent With Patient Critical Care time: I spent a total of [] minutes of critical care time on this patient's care today; this time is exclusive of procedural time. Quality VTE Deep Vein Thrombosis/Pulmonary Embolism Present on Admission: No MIPS - Admit I confirm the patient?s Advance Care Plan is present, Code status is documented, Surrogate decision maker is in patient?s record [If Yes, STOP here]: Yes
[2021-10-02] MEDS: VANCOMYCIN 1,250 MG/250 ML PIGGYBACK 250 MG IV (16:48)
[2021-10-02] MEDS: TAMSULOSIN 0.4 MG CAPSULE 0.8 MG PO (16:48)
[2021-10-02] MEDS: SCOPOLAMINE 1 PATCH TOP (16:49)
[2021-10-02] MEDS: MORPHINE 2 MG/ML INJ IV (16:55)
[2021-10-02] MEDS: ATORVASTATIN 20 MG TABLET 10 MG PO (20:40)
[2021-10-02] MEDS: SODIUM CHLORIDE 0.9% FLUSH 10 ML IV (23:46)
[2021-10-03] VITALS (15 sets, daily range): BP systolic 60–128; BP diastolic 35–66; PULSE 79–99; RESP 16–23; TEMP 35.8–36.8; O2SAT 91–95
[2021-10-03] MEDS: HYDROCODONE/ACET 5/325 TABLET 1 TAB PO ×4 (04:31→18:05)
[2021-10-03] MEDS: VANCOMYCIN 1,250 MG/250 ML PIGGYBACK 250 MG IV ×2 (04:31→20:40)
[2021-10-03 05:16] LABS: INR 1.4 (0.9-1.3); Prothrombin Time 15.5 SECONDS (10.1-12.7)
[2021-10-03 05:22] LABS: Alanine Aminotransferase 67 IU/L (<50); Albumin 2.8 g/dL (3.5-5.0); Albumin Globulin Ratio 1.1 (1.0-2.8); Alkaline Phosphatase 61 U/L (38-126); Aspartate Aminotransferase 54 IU/L (17-59); BUN Creatinine Ratio 34.6 (6-22); Bilirubin Total 1.9 mg/dL (0.2-1.3); Blood Urea Nitrogen 27 mg/dL (9-20); Calcium 7.9 mg/dL (8.4-10.2); Carbon Dioxide 28 mmol/L (22-32); Chloride 102 mmol/L (98-107); Estimated Glomerular Filt Rate > 60 mL/min (>60); Globulin 2.5 g/dL (1.7-4.1); Glucose 165 mg/dL (80-110); HEMOLYSIS < 15 (0-50); Potassium 4.2 mmol/L (3.4-5.1); Sodium 135 mmol/L (137-145); Total Protein 5.3 g/dL (6.3-8.2)
[2021-10-03 05:23] LABS: Magnesium 2.2 mg/dL (1.6-2.3); Phosphorous 2.2 mg/dL (2.3-3.7)
[2021-10-03 05:38] LABS: Hematocrit 38.5 % (41-53); Hemoglobin 12.9 g/dL (13.5-17.5); Mean Corpuscular HGB Conc 33.6 % (30-36); Mean Corpuscular Hemoglobin 32.4 PG (26-34); Mean Corpuscular Volume 96.2 fL (80-100); Platelet Count 206 X10^3/uL (150-400); Red Cell Distribution Width 16.9 % (11.6-14.8); White Blood Cell Count 15.5 X10^3/uL (4.5-11.0)
[2021-10-03 05:40] LABS: Add Manual Diff / Slide Review YES
[2021-10-03] MEDS: PIPERACILLIN/TAZO 3.375 GM in SODIUM CHLORIDE 0.9% 100 ML IV ×3 (05:42→21:47)
--- NOTE | 2021-10-03 05:56 | PC.NURSE ---
Pt continues to be having problems managing his own secretions, suctioning himself often during the night, c/o throat pain that is probably due to deep suctioning with the yanker. Pt still having some difficulty swallowing his pills whole with applesauce, doesn't want his medication crush. Pt was restarted on his IVAB, wbc continue to increase. HR was afib all night at a control rate.
[2021-10-03 06:12] LABS: Anisocytosis 1+; Neutrophils Absolute Manual 13950 /uL (3000-5900); Total Cells Counted 100
[2021-10-03] MEDS: PANTOPRAZOLE DR 20 MG TABLET PO (06:37)
[2021-10-03] MEDS: BUDESONIDE 0.5 MG/2 ML NEB INH ×2 (07:42→19:11)
[2021-10-03] MEDS: ALBUTEROL/IPRATROPIUM 3 ML AMPUL INH ×3 (07:42→19:11)
[2021-10-03] MEDS: APIXABAN 5 MG TABLET PO ×2 (09:57→21:46)
[2021-10-03] MEDS: MULTIVITAMIN 1 TABLET 1 TAB PO (09:57)
[2021-10-03] MEDS: ASCORBIC ACID 500 MG TABLET PO ×2 (09:57→21:46)
[2021-10-03] MEDS: SPIRONOLACTONE 25 MG TABLET PO (09:57)
[2021-10-03] MEDS: METOPROLOL ER 50 MG TABLET PO (09:57)
[2021-10-03] MEDS: allopurinoL 300 MG TABLET PO (09:57)
[2021-10-03] MEDS: GABAPENTIN 100 MG CAPSULE PO ×3 (09:57→21:47)
[2021-10-03] MEDS: AZITHROMYCIN 500 MG in DEXTROSE 5% IN WATER 250 ML 250 MG IV (09:58)
[2021-10-03] MEDS: FINASTERIDE 5 MG TABLET PO (09:58)
[2021-10-03] MEDS: TORSEMIDE 10 MG TABLET 20 MG PO (10:22)
--- NOTE | 2021-10-03 11:03 | PT.IPTN ---
Current Diagnoses Pneumonitis due to inhalation of food and vomit (09/25/21) Surgery Performed Operation Date: 09/30/21 07:45 Actual Procedures p Peg Tube Insertion - Bry Shelton MD Physical Therapy Treatment Note M2 PT-IP Current Condition Start: 10/01/21 15:09 Freq: NEEDED Status: Active Protocol: Document 10/01/21 13:30 AB (Rec: 10/01/21 15:22 AB [id number]) Physical Therapy Current Condition Current Condition Evaluation Date 10/01/21 Treatment Diagnosis late effects of CVA; difficulty in walking Onset Date 09/25/21 M3 PT-IP Subjective Start: 10/01/21 15:09 Freq: NEEDED Status: Active Protocol: Document 10/03/21 10:53 KS (Rec: 10/03/21 13:59 KS [id number]) Subjective Physical Therapy Visit Type Type Treatment Note Visit Start Time 10:53 Visit Stop Time 11:03 Total Visit Minutes 10 Number of HEALTH UNIT CLERK Visits 2 M4 PT-IP Mobility and Gait Start: 10/01/21 15:09 Freq: NEEDED Status: Active Protocol: Document 10/03/21 10:53 KS (Rec: 10/03/21 13:59 KS [id number]) PT-Transfer Assessment Comments Mobility Comments Pt at first refusing therapy but then agreeable to perform LE exercises in bed to promote blood flow and strengthening. Pt completed 1x10 bilateral ankle pumps, SLR, quad sets, heel slides, and glute sets and reported fatigu and requested to rest. Pt left in bed w/ alarm on and all needs in reach. M5 PT-IP Objective Assessments Start: 10/01/21 15:09 Freq: NEEDED Status: Active Protocol: Document 10/01/21 13:30 AB (Rec: 10/01/21 15:22 AB [id number]) Orientation Orientation/Cognition Level of Alertness Alert Orientation Name,Place,Situation Language Function Ability Hard of Hearing Safety Awareness Decreased Safety Awareness Memory Description Short Term Impaired Gross Range of Motion Lower Extremity ROM Assessment Within Functional Limits Strength Lower Extremity Strength Assessment Bilaterally Impaired Hip 4-/5 Knee 3+/5 Coordination Assessment Gross Coordination Gross Coordination WNL Sensation Assessment Sensation Gross Sensation WNL Muscle Tone Muscle Tone WNL Yes M6 PT-IP Treatment Start: 10/01/21 15:09 Freq: NEEDED Status: Active Protocol: Document 10/03/21 10:53 KS (Rec: 10/03/21 13:59 PR [id number]) Physical Therapy Treatment Exercises Exercises Ankle Pumps,Gluteal Sets,Quad Sets,Heel Slides,Straight Leg Raises Education Education Provided Safety M7 PT-IP Assessment and Plan Start: 10/01/21 15:09 Freq: NEEDED Status: Active Protocol: Document 10/03/21 10:53 PR (Rec: 10/03/21 13:59 PR [id number]) PT Summary Assessment and Plan Potential Rehabilitation Potential Fair Status of Condition at Evaluation Evolving Summary Impairments Pain,ROM,Strength,Balance, Coordination,Sensation,Tone, Cognition,Bed Mobility, Transfers,Gait,Activity Tolerance Assessment Summary Pt initially stating he feels very tired and weak today, but then agreed to exercises in bed. Able to complete LE exercises, but w/ quick approach to fatigue. RN aware. Will continue to progress as tolerated, but at this time pt will require SNF to improve strength and mobility. Goals Bed Mobility Goal Independent Transfer Goal Standby Assistance,Front Wheeled Walker Gait Goal Standby Assistance,Front Wheel Walker Gait Distance 100 Other Goals up/down 3 steps R rail ascending SBA Days to Meet Goals 10 Frequency of Treatment Frequency Of Treatment Once a Day Treatment Plan Physical Therapy Treatment Plan Bed Mobility Training,Transfer Training,Gait Training, Therapeutic Exercise,Balance Retraining,Discharge Planning, Hot or Cold Pack,Neuromuscular Re-ed,Coordination Retraining ,Manual Therapy Precautions Other Precautions falls Recommendations To Nursing Amount of Assist Needed 2 Person Assist Discharge Recommendations PT Discharge Recommendations SNF Rehab Transportation Needs at Discharge Wheelchair/Cabulance
[2021-10-03] MEDS: INSULIN LISPRO 100 UNIT/ML 3ML VIAL SUBCUT ×2 (11:53→17:04)
[2021-10-03] MEDS: SODIUM CHLORIDE 0.9% 1,000 ML 500 ML IV (11:56)
--- NOTE | 2021-10-03 11:57 | P.PN_ITS ---
Subjective Subjective Interval history: The patient reports that his swallowing difficulties have returned. He denies noting any aspiration. However, he does endorse mucous congestion and has been suctioning his mouth. INR 1.4 this morning. He and his endorse that he's been transitioned off warfarin to Eliquis recently. Exam Vital Signs (past 8 hours): - 10/03/21 04:00 10/03/21 07:42 10/03/21 08:00 Temperature 97.8 F 96.4 F L Pulse Rate 84 90 98 H Respiratory Rate 23 18 20 Blood Pressure 128/66 105/66 Pulse Oximetry 93 94 91 10/03/21 09:57 10/03/21 09:59 Temperature Pulse Rate 95 H 95 H Respiratory Rate Blood Pressure 106/61 106/61 Pulse Oximetry Fraction of Inspired Oxygen 21 Oxygen Delivery Method Room Air Oxygen Flow Rate 0 Narrative Exam Narrative: Const Other: Patient sitting up comfortably upon my entering the room, in no apparent acute distress, with at bedside Eyes Other: No scleral icterus appreciated Resp Other: Diminished breath sounds bilaterally with bilateral rhonchi appreciated, mostly to mid-lung and bases Cardio Other: Irregular rhythm with tachycardic rate, with normal S1 and S2 heart sounds, and no extra heart sounds or murmurs appreciated GI Other: Soft, non-distended, non-tender, bowel sounds present Skin Other: No grossly abnormal skin lesions noted Extrem Other: Palpable dorsalis pedis bilaterally without peripheral edema Objective Labs Result Diagrams: 10/03/21 04:58 10/03/21 04:58 Labs: Laboratory Results - last 24 hr 10/02/21 10/03/21 10/03/21 13:29 00:01 04:58 WBC RBC Hgb Hct MCV MCH MCHC RDW Plt Count Neut % (Auto) Lymph % (Auto) [place] % (Auto) Eos % (Auto) Baso % (Auto) Lymph # (Auto) [place] # (Auto) Baso # (Auto) Total Counted Seg Neutrophils % Band Neutrophils % Lymphocytes % (Manual) Monocytes % (Manual) Metamyelocytes % Neutrophils # (Manual) RBC Morphology Anisocytosis PT 15.5 H D INR 1.4 H Sodium Potassium Chloride Carbon Dioxide BUN Creatinine Estimated GFR BUN/Creatinine Ratio Glucose Hemoglobin A1c 8.0 H Calcium Phosphorus Magnesium Total Bilirubin AST ALT Alkaline Phosphatase Total Protein Albumin Globulin Albumin/Globulin Ratio Urine Color Yellow Urine Appearance Cloudy Urine pH 6.0 Ur Specific [place] 1.015 Urine Protein Trace H Urine Glucose (UA) 1+ H Urine Ketones Negative Urine Occult Blood 3+ H Urine Nitrate Negative Urine Bilirubin Negative Urine Urobilinogen 0.2 Ur Leukocyte Esterase Negative Urine RBC 30-100/hpf H Urine WBC 1-5/hpf Ur Squamous Epith Cells 0-1 /hpf Amorphous Sediment 1+ Urine Bacteria None seen Urine Mucus 1+ H Ur Culture Indicated? Cult not indicated 10/03/21 10/03/21 10/03/21 04:58 04:58 04:58 WBC 15.5 H RBC 4.00 L Hgb 12.9 L Hct 38.5 L MCV 96.2 MCH 32.4 MCHC 33.6 RDW 16.9 H Plt Count 206 Neut % (Auto) Not Reportable Lymph % (Auto) Not Reportable [place] % (Auto) Not Reportable Eos % (Auto) Not Reportable Baso % (Auto) Not Reportable Lymph # (Auto) Not Reportable [place] # (Auto) Not Reportable Baso # (Auto) Not Reportable Total Counted 100 Seg Neutrophils % 85.0 H Band Neutrophils % 5.0 Lymphocytes % (Manual) 7.0 L Monocytes % (Manual) 2.0 Metamyelocytes % 1.0 H Neutrophils # (Manual) 01748 H RBC Morphology See below Anisocytosis 1+ H PT INR Sodium 135 L Potassium 4.2 Chloride 102 Carbon Dioxide 28 BUN 27 H Creatinine 0.78 Estimated GFR > 60 BUN/Creatinine Ratio 34.6 H Glucose 165 H D Hemoglobin A1c Calcium 7.9 L Phosphorus 2.2 L Magnesium 2.2 Total Bilirubin 1.9 H AST 54 ALT 67 H Alkaline Phosphatase 61 Total Protein 5.3 L Albumin 2.8 L Globulin 2.5 Albumin/Globulin Ratio 1.1 Urine Color Urine Appearance Urine pH Ur Specific [place] Urine Protein Urine Glucose (UA) Urine Ketones Urine Occult Blood Urine Nitrate Urine Bilirubin Urine Urobilinogen Ur Leukocyte Esterase Urine RBC Urine WBC Ur Squamous Epith Cells Amorphous Sediment Urine Bacteria Urine Mucus Ur Culture Indicated? [facility] Medical History Age related cataract Ankle pain Anticoagulation goal of INR 2 to 3 Atrial fibrillation Atrial fibrillation Benign prostatic hyperplasia Chicken pox Cholelithiasis Chronic anticoagulation Chronic back pain COPD (chronic obstructive pulmonary disease) Gout Hearing loss Hemorrhoid History of gastric ulcer History of tobacco use Hyperlipidemia Hypertension Measles Mumps Obesity Osteoarthritis Pericarditis 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 Tinnitus Surgical History Anesthesia History of ankle surgery (~1965) History of appendectomy (~2018) History of cataract removal with insertion of prosthetic lens History of laparotomy (~2000) History of tonsillectomy (~1944) Family History Mother Hypertension Heart disease Diabetes mellitus Hyperlipidemia Father Hypertension Hyperlipidemia Grandmother Pneumonia Social History marital status: household members: spouse occupational status: previously employed Smoking Status: Former smoker alcohol intake: former substance use type: does not use Assessment & Plan Assessment & Plan narrative: Assessment: 1. Dysphagia, likely due to recent CVA 2. Recent bilateral frontal/parietal CVA's, likely cardioembolic 3. Hospital-acquired pneumonia 4. Atrial fibrillation, paroxysmal 5. Hypertension 6. Supratherapeutic INR on warfarin, improving 7. Polymyalgia rheumatica 8. BPH Plan: 1. The patient initially failed swallow eval but then passed, foregoing the need for PEG tube. He is due to undergo endoscopy and laryngoscopy as an outpatient. However, if his dysphagia persists, he will likely require repeat swallow study and possible inpatient endoscopy. 2. This was likely brought on by a fib. There are not appreciable physical or language deficits, with the exception of dysphagia, which is improving. Continue home atherosclerotic protecting meds. 3. Will start IV vancomcyin and IV Zosyn on October 02. Will add IV azithromycin on October 03, for atypical pathogen coverage. 4. As this is non-valvular a fib, will start Eliquis 5 mg bid after INR subtherapeutic. Toprol 50 mg daily for rate control. Will stop digoxin, as pt has preserved EF. 5. Will hold home losartan 25 mg daily, amlodipine 5 mg daily, Aldactone 25 mg daily, torsemide 20 mg daily, and tamsulosin 0.8 mg nightly, as patient has consistently very low BP's. 6. Initally received IV vitamin K, as it was thought he would require PEG tube. He then passed swallow evaluation. 7. Patient is on chronic prednisone 5 mg daily at home and will continue. Will hold weekly methotrexate for now as patient being actively treated for infection. 8. Will continue home finasteride, but hold home tamsulosin due to concern for orthostatic hypotension. VTE prophylaxis: Jordi as above Time Spent With Patient Critical Care time: I spent a total of [] minutes of critical care time on this patient's care today; this time is exclusive of procedural time. Quality VTE Deep Vein Thrombosis/Pulmonary Embolism Present on Admission: No
--- NOTE | 2021-10-03 12:07 | PC.NURSE ---
at 1105 am I was alerted by the PAGE MAKEUP SYSTEM OPERATOR THAT SHE HAD GOTTEN THE Pt up to hav a BM he was in the chair and stated he was dizzy I took his bp and it was 75/48. I got the sling to rupesh him to the bed and three minutes later his bp was 65/31. we hoyered him to the bed and put the Pt in trundelenburg position and his BP returned to 99/55, and Pt stated he was less woozy. I informed Dr. Bernal and he ordered a bolus of normal saline 1000ml. He also ordered to hold all BP meds.
[2021-10-03] MEDS: guaiFENesin ER 600 MG TAB PO ×2 (12:22→21:47)
[2021-10-03] MEDS: ONDANSETRON 4 MG/2 ML INJ IV (12:41)
[2021-10-03] MEDS: SODIUM,POTASSIUM PHOSPHATES PACKET 2 EACH PO (13:03)
[2021-10-03] MEDS: SODIUM CHLORIDE 0.9% 1,000 ML 100 ML IV ×2 (14:58→18:08)
--- NOTE | 2021-10-03 15:26 | OT.IPNOTE ---
Per nurse, pt having low BP and hold for OT today at this time.
[2021-10-03 15:32] LABS: Lactate (Lactic Acid) 2.3 mmol/L (0.7-2.1)
[2021-10-03] MEDS: MIDODRINE HCL 5 MG TABLET 10 MG PO (15:54)
--- NOTE | 2021-10-03 16:38 | CM.DPNOTE ---
DCP Note Updated spouse- [facility] accepts upon DC and auth through [place] has been secured. Spouse appreciative. Plan: DC to [facility] H+R anticipated when medically stable, likely via w/c, TBD closer to DC JW
[2021-10-03 17:17] LABS: Reflexed Lactate in 2 Hours Y
[2021-10-03 17:56] LABS: Lactate 2HR (Lactic Acid Rflx) 1.8 mmol/L (0.7-2.1)
[2021-10-03] MEDS: SODIUM CHLORIDE 0.9% 500 ML 250 ML IV (18:54)
[2021-10-03] MEDS: ATORVASTATIN 20 MG TABLET 10 MG PO (21:47)
[2021-10-03] MEDS: predniSONE 5 MG TABLET PO (21:47)
[2021-10-04] VITALS (9 sets, daily range): BP systolic 100–135; BP diastolic 59–76; PULSE 77–100; RESP 15–21; TEMP 36.1–36.7; O2SAT 91–98
[2021-10-04 03:37] LABS: INR 1.9 (0.9-1.3); Prothrombin Time 21.8 SECONDS (10.1-12.7)
[2021-10-04 03:40] LABS: Hematocrit 38.4 % (41-53); Hemoglobin 12.8 g/dL (13.5-17.5); Mean Corpuscular HGB Conc 33.4 % (30-36); Mean Corpuscular Hemoglobin 32.3 PG (26-34); Mean Corpuscular Volume 96.6 fL (80-100); Platelet Count 209 X10^3/uL (150-400); Red Blood Cell Count 3.98 X10^6/uL (4.5-5.9); Red Cell Distribution Width 16.5 % (11.6-14.8); White Blood Cell Count 12.2 X10^3/uL (4.5-11.0)
[2021-10-04 03:42] LABS: BUN Creatinine Ratio 24.4 (6-22); Blood Urea Nitrogen 21 mg/dL (9-20); Calcium 7.4 mg/dL (8.4-10.2); Carbon Dioxide 29 mmol/L (22-32); Chloride 98 mmol/L (98-107); Estimated Glomerular Filt Rate > 60 mL/min (>60); Glucose 203 mg/dL (80-110); HEMOLYSIS < 15 (0-50); Potassium 4.2 mmol/L (3.4-5.1); Sodium 133 mmol/L (137-145)
[2021-10-04 03:43] LABS: Add Manual Diff / Slide Review YES
[2021-10-04 03:54] LABS: Vancomycin Trough 16.5 ug/mL (10-20)
[2021-10-04] MEDS: HYDROCODONE/ACET 5/325 TABLET 1 TAB PO (04:07)
[2021-10-04 04:09] LABS: Neutrophils Absolute Manual 11468 /uL (3000-5900); Total Cells Counted 100
[2021-10-04 04:10] LABS: Anisocytosis 1+
[2021-10-04] MEDS: PIPERACILLIN/TAZO 3.375 GM in SODIUM CHLORIDE 0.9% 100 ML IV ×3 (04:33→21:01)
[2021-10-04] MEDS: VANCOMYCIN TROUGH 1 REQUEST MISC (04:34)
[2021-10-04] MEDS: PANTOPRAZOLE DR 20 MG TABLET PO (06:09)
[2021-10-04] MEDS: SODIUM CHLORIDE 0.9% 1,000 ML 100 ML IV (06:14)
[2021-10-04] MEDS: BUDESONIDE 0.5 MG/2 ML NEB INH ×2 (07:41→21:48)
[2021-10-04] MEDS: ALBUTEROL/IPRATROPIUM 3 ML AMPUL INH ×3 (07:41→21:48)
[2021-10-04] MEDS: INSULIN LISPRO 100 UNIT/ML 3ML VIAL SUBCUT (08:26)
[2021-10-04] MEDS: AZITHROMYCIN 500 MG in DEXTROSE 5% IN WATER 250 ML 250 MG IV (08:38)
[2021-10-04] MEDS: VANCOMYCIN 1,250 MG/250 ML PIGGYBACK 250 MG IV (09:54)
--- NOTE | 2021-10-04 11:00 | PM.CALLCOV.1 ---
Call Coverage Note Note Date of Patient Contact: 10/04/21 Time of Patient Contact: 11:00 Narrative of Care Provided: Remains unsafe for oral intake. Felice ann. PEG on Tuesday if possible.
[2021-10-04] MEDS: MORPHINE 2 MG/ML INJ IV ×3 (11:09→20:49)
--- NOTE | 2021-10-04 14:12 | P.PN_ITS ---
Subjective Subjective Date Patient Seen: 10/04/21 Interval history: 86-year-old male with recent bilateral strokes, atrial fibrillation, normal LVEF, new diagnosis diabetes admitted due to progressive dysphagia. Patient's endorses his swallowing has only gotten worse over the past week in the hospital. He is unable to take much by mouth even with modified diet and can actually feel himself aspirating. Also bringing up a lot of secretions which she is self suctioning. He was also started on antibiotics on 10/02 for aspiration pneumonia. O2 sats have been normal on room air although on 1 L NC presently. Glucose 203 this a.m. and needs to be addressed. Also blood pressures had been running low yesterday and normal today with stopping antihypertensives. Exam Vital Signs (past 8 hours): - 10/04/21 07:42 10/04/21 08:00 10/04/21 12:00 Temperature 97.0 F L 97.2 F L Pulse Rate 77 85 Respiratory Rate 19 21 Blood Pressure 108/62 113/65 Pulse Oximetry 96 98 96 10/04/21 13:32 Temperature Pulse Rate 85 Respiratory Rate 20 Blood Pressure Pulse Oximetry 97 Fraction of Inspired Oxygen 21 Oxygen Delivery Method Nasal Cannula Oxygen Flow Rate 1 Narrative Exam Narrative: General: He is quite lethargic and voice is hoarse Lungs: Clear to auscultation Heart: Irregularly irregular Abdomen: Soft Extremities: No edema Neurological: Normal affect, not appearing confused Objective Labs Result Diagrams: 10/04/21 03:15 10/04/21 03:15 Labs: Laboratory Results - last 24 hr 10/03/21 10/03/21 10/04/21 15:14 17:39 03:15 WBC RBC Hgb Hct MCV MCH MCHC RDW Plt Count Neut % (Auto) Lymph % (Auto) Mcintosh % (Auto) Eos % (Auto) Baso % (Auto) Lymph # (Auto) Mcintosh # (Auto) Baso # (Auto) Total Counted Seg Neutrophils % Band Neutrophils % Lymphocytes % (Manual) Monocytes % (Manual) Eosinophils % (Manual) Neutrophils # (Manual) RBC Morphology Anisocytosis PT 21.8 H D INR 1.9 H Sodium Potassium Chloride Carbon Dioxide BUN Creatinine Estimated GFR BUN/Creatinine Ratio Glucose Lactate 2.3 H 1.8 Calcium Phosphorus Magnesium Vancomycin Trough 10/04/21 10/04/21 10/04/21 03:15 03:15 03:15 WBC 12.2 H RBC 3.98 L Hgb 12.8 L Hct 38.4 L MCV 96.6 MCH 32.3 MCHC 33.4 RDW 16.5 H Plt Count 209 Neut % (Auto) Not Reportable Lymph % (Auto) Not Reportable Mcintosh % (Auto) Not Reportable Eos % (Auto) Not Reportable Baso % (Auto) Not Reportable Lymph # (Auto) Not Reportable Mcintosh # (Auto) Not Reportable Baso # (Auto) Not Reportable Total Counted 100 Seg Neutrophils % 91.0 H Band Neutrophils % 3.0 Lymphocytes % (Manual) 2.0 L Monocytes % (Manual) 3.0 Eosinophils % (Manual) 1.0 L Neutrophils # (Manual) 92309 H RBC Morphology See below Anisocytosis 1+ H PT INR Sodium Potassium Chloride Carbon Dioxide BUN Creatinine Estimated GFR BUN/Creatinine Ratio Glucose Lactate Calcium Phosphorus 3.0 Magnesium 2.0 Vancomycin Trough 16.5 10/04/21 03:15 WBC RBC Hgb Hct MCV MCH MCHC RDW Plt Count Neut % (Auto) Lymph % (Auto) Mcintosh % (Auto) Eos % (Auto) Baso % (Auto) Lymph # (Auto) Mcintosh # (Auto) Baso # (Auto) Total Counted Seg Neutrophils % Band Neutrophils % Lymphocytes % (Manual) Monocytes % (Manual) Eosinophils % (Manual) Neutrophils # (Manual) RBC Morphology Anisocytosis PT INR Sodium 133 L Potassium 4.2 Chloride 98 Carbon Dioxide 29 BUN 21 H Creatinine 0.86 Estimated GFR > 60 BUN/Creatinine Ratio 24.4 H Glucose 203 H Lactate Calcium 7.4 L Phosphorus Magnesium Vancomycin Trough [facility] Medical History Age related cataract Ankle pain Anticoagulation goal of INR 2 to 3 Atrial fibrillation Atrial fibrillation Benign prostatic hyperplasia Chicken pox Cholelithiasis Chronic anticoagulation Chronic back pain COPD (chronic obstructive pulmonary disease) Gout Hearing loss Hemorrhoid History of gastric ulcer History of tobacco use Hyperlipidemia Hypertension Measles Mumps Obesity Osteoarthritis Pericarditis 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 Tinnitus Surgical History Anesthesia History of ankle surgery (~1965) History of appendectomy (~2018) History of cataract removal with insertion of prosthetic lens History of laparotomy (~1999) History of tonsillectomy (~1944) Family History Mother Hypertension Heart disease Diabetes mellitus Hyperlipidemia Father Hypertension Hyperlipidemia Grandmother Pneumonia Social History marital status: household members: spouse occupational status: previously employed Smoking Status: Former smoker alcohol intake: former substance use type: does not use Assessment & Plan Assessment & Plan narrative: 1. Dysphagia, likely due to recent CVA 2. Recent bilateral frontal/parietal CVA's, likely cardioembolic, on warfarin 3. Aspiration pneumonia developing in hospital 4. Atrial fibrillation, paroxysmal 5. Hypertension 6. Supratherapeutic INR on warfarin, improving 7. Polymyalgia rheumatica, on chronic prednisone 5 mg at bedtime 8. BPH 9. Type 2 diabetes, A1c 8.0 10. Hypotension 11. Chronic diastolic heart failure 12. Chronic hoarseness, needs vocal cords evaluated Patient is clearly at a point where he will need a PEG due to progressive dysphagia from recent strokes. If anything swallowing problem is worsening over the past week. Contacted Dr. Serrano to reassess patient for PEG. Last Eliquis dose was 5/20 pm. He should be discharged on Eliquis instead of warfarin since strokes occurred on warfarin. Continue IV antibiotics for aspiration/hospital acquired pneumonia, on Vancomycin and Zosyn since October 02, azithromycin added October 03 to treat MRSA, g negatives and also atypicals. Continue holding home losartan 25 mg daily, amlodipine 10 mg daily, Aldactone 25 mg daily, metoprolol ER 100 mg q.d., torsemide 20 mg daily, and tamsulosin 0.8 mg nightly, as patient has consistently very low BP's. Hydrocortisone 50 mg IV HS while patient NPO and unable to take his prednisone Maintenance IV fluids while NPO Monitor heart rate with holding torsemide Monitor for fluid overload with holding torsemide Likely patient will need reduction in blood pressure lowering medications when discharged Insulin sliding scale, nutrition consult after PEG Keep NPO Time Spent With Patient Critical Care time: I spent a total of [] minutes of critical care time on this patient's care today; this time is exclusive of procedural time. Quality VTE Deep Vein Thrombosis/Pulmonary Embolism Present on Admission: No
--- NOTE | 2021-10-04 16:05 | PT-IP ANOTE ---
Attempted to see pt for daily PT treatment at 1600. Pt struggled to speak, even in a whisper, but stated he has had a rough day keeping up with self oral suctioning. He stated he was too fatigued to participate this PM but was working on bed exercises independently. Pt welcomed PT to return Tuesday.
[2021-10-04] MEDS: SODIUM CHLORIDE 0.9% 1,000 ML 84 ML IV (17:39)
[2021-10-04] MEDS: HYDROCORTISONE 100 MG/2 ML VIAL 50 MG IV (20:49)
[2021-10-05] VITALS (10 sets, daily range): BP systolic 122–135; BP diastolic 72–86; PULSE 81–101; RESP 16–21; TEMP 36.2–37.1; O2SAT 93–99
[2021-10-05] MEDS: MORPHINE 2 MG/ML INJ IV ×6 (00:18→23:59)
[2021-10-05] MEDS: VANCOMYCIN 1,250 MG/250 ML PIGGYBACK 250 MG IV ×2 (01:53→15:07)
[2021-10-05] MEDS: PIPERACILLIN/TAZO 3.375 GM in SODIUM CHLORIDE 0.9% 100 ML IV ×3 (05:13→20:53)
[2021-10-05 05:21] LABS: Hematocrit 37.3 % (41-53); Hemoglobin 12.6 g/dL (13.5-17.5); Mean Corpuscular HGB Conc 33.8 % (30-36); Mean Corpuscular Hemoglobin 32.4 PG (26-34); Mean Corpuscular Volume 95.9 fL (80-100); Platelet Count 186 X10^3/uL (150-400); Red Blood Cell Count 3.88 X10^6/uL (4.5-5.9); Red Cell Distribution Width 16.3 % (11.6-14.8); White Blood Cell Count 9.1 X10^3/uL (4.5-11.0)
[2021-10-05 05:22] LABS: Add Manual Diff / Slide Review YES
[2021-10-05 05:23] LABS: Magnesium 1.9 mg/dL (1.6-2.3); Phosphorous 3.4 mg/dL (2.3-3.7)
[2021-10-05 05:24] LABS: BUN Creatinine Ratio 20.8 (6-22); Blood Urea Nitrogen 16 mg/dL (9-20); Calcium 7.6 mg/dL (8.4-10.2); Carbon Dioxide 31 mmol/L (22-32); Chloride 99 mmol/L (98-107); Estimated Glomerular Filt Rate > 60 mL/min (>60); Glucose 191 mg/dL (80-110); HEMOLYSIS < 15 (0-50); Potassium 4.2 mmol/L (3.4-5.1); Sodium 132 mmol/L (137-145)
[2021-10-05 05:40] LABS: Anisocytosis 1+; Neutrophils Absolute Manual 8736 /uL (3000-5900); Total Cells Counted 100
[2021-10-05] MEDS: INSULIN LISPRO 100 UNIT/ML 3ML VIAL SUBCUT ×2 (06:26→12:29)
[2021-10-05] MEDS: SODIUM CHLORIDE 0.9% 1,000 ML 84 ML IV ×2 (06:37→21:04)
--- NOTE | 2021-10-05 06:39 | PC.NURSE ---
Shift Note-Patient is oriented x4, fatigued, morphine IV given per prn for throat and generalized pain. NPO, has loose productive cough, using sx on own. SpO2 >94% on 1L NC, expiratory rhonchi throughout. Remains A-fib CVR/RVR, BBB on telemetry, VSS. in room overnight.
[2021-10-05] MEDS: ALBUTEROL/IPRATROPIUM 3 ML AMPUL INH ×3 (07:15→21:20)
[2021-10-05] MEDS: BUDESONIDE 0.5 MG/2 ML NEB INH ×2 (07:15→21:20)
[2021-10-05] MEDS: AZITHROMYCIN 500 MG in DEXTROSE 5% IN WATER 250 ML 250 MG IV (09:03)
--- NOTE | 2021-10-05 12:39 | PT.IPTN ---
Current Diagnoses Pneumonitis due to inhalation of food and vomit (09/25/21) Surgery Performed Operation Date: 09/30/21 07:45 Actual Procedures p Peg Tube Insertion - Bry Shelton MD Physical Therapy Treatment Note M2 PT-IP Current Condition Start: 10/01/21 15:09 Freq: NEEDED Status: Active Protocol: Document 10/05/21 11:59 SP (Rec: 10/05/21 16:38 SP [id number]) Physical Therapy Current Condition Current Condition Evaluation Date 10/01/21 Treatment Diagnosis late effects of CVA; difficulty in walking Onset Date 09/25/21 M3 PT-IP Subjective Start: 10/01/21 15:09 Freq: NEEDED Status: Active Protocol: Document 10/05/21 11:59 SP (Rec: 10/05/21 16:38 SP [id number]) Subjective Physical Therapy Visit Type Type Treatment Note Visit Start Time 11:59 Visit Stop Time 12:39 Total Visit Minutes 40 Notes in room, observed tx until received phone call. Vitals taken during tx: supine 131/73 HR 86 SaO2 94% on RA seated: BP 133/70 HR95 post standing july at EOB: 111/68 HR 97 Post lateral side step: 109/70 HR 102. Nonsymptomatic reports Number of SLITTER AND REWINDER Visits 3 Physical Therapy Visit Comments Patient Comments Pt willing to mobilizing with therapy post encouragement and education on benefits of mobility keep up strength. Therapy Pain Assessment Pain When Pain Assessed During Mobility Pain Present Pain Present Pain Reported Location Throat Intensity 2 Pain Behaviors Facial Grimacing Pain Management Techniques Distraction,Modification of Treatment,Re-positioning M4 PT-IP Mobility and Gait Start: 10/01/21 15:09 Freq: NEEDED Status: Active Protocol: Document 10/05/21 11:59 SP (Rec: 10/05/21 16:38 SP [id number]) PT-Bed Mobility Assessment Supine to Sit Supine to Sit Standby Assistance,Contact Guard Assistance,1 Person Assistance,Head of Bed Elevated,Bedrails Sit to Supine Sit to Supine Contact Guard Assistance,1 Person Assistance,Bedrails Scooting Scooting to Edge of Bed Standby Assistance,Contact Guard Assistance PT-Transfer Assessment Sit to and From Stand Sit to and from Stand Minimal Assistance,Moderate Assistance,1 Person Assistance ,Use of Upper Extremities Equipment Transfer Assistive Device Gait Belt,Front Wheeled Walker Orthotic/Prosthetic Devices or Brace: No Transfers Transfer Destination Bed Transfer Technique Lateral Scoot Transfer Ability Level of Assist Minimal Assistance,Moderate Assistance,1 Person Assistance ,Use of Upper Extremities Comments Mobility Comments SLITTER AND REWINDER instructed BLE ex: AP, HS, SLR, hip abd pre mobility HEP continue on own hourly, pt stated will remind him. Pt requires incline 30% (same incline wedge at home) and use bedrail (doesn't have at home ) for self support CG> SBA sup >sit. STS at R EOB w/FWW Min- Mod A cues proper hand placement and quad facilitation coming to standing. Instructed marching x4 reps w/ FWW support Min A x1. Stand>sit at EOB, time spent recovery cues for breath . Pt tires quickly. Pt declined getting up to chair but requested waffle cushion ( misplaced, nursing acquired another),STS w/ FWW Min A, lateral side step up to HOB 2 ft, stand>sit Min A with cues for reach back for safe descent. Sit<>supine SBA with use of bed rails. was in room but missed mobility tx due to on important phone call . SLITTER AND REWINDER provided pillow under BLE and education to and pt continue LE ex on own hourly, mobility with nursing in chair 2-3x/day and will continue progression tomorrow, initiate CGT with if can support out of bed mobility with pt. states always here. Will assess progress tomorrow. Gait Assessment Gait Gait Assistance Required: Minimum Assistance,Moderate Assistance,1 Person Assist Distance (Feet) 2 Able to Maintain Weight Bearing Status Yes During Gait Assistive Devices Assistive Device Gait Belt,Front Wheeled Walker Orthotic/Prosthetic Devices or Brace: No Gait Deviations General Gait Pattern Antalgic,Decreased Stride Length,Decreased Feet Clearance,Flexed Trunk,Step-to Gait Factors Limiting Gait Function Factors Limiting Gait Function Decreased Activity Tolerance, Decreased Strength,Difficulty Following Directions,Poor Balance,Poor Safety Awareness, Respiratory Distress Comments Gait Comments Marching at side of bed w/ FWW Min A, lateral side step up EOB 2 ft w/ FWW only tolerated . Seated rest between activity . Stair Climbing Assessment Comments Stair Climbing Comments Unable to assess, has 3 steps R RHR at home will need to assess for safe DC when able. PT-Balance Assessment Sitting Balance and Reactions Static Sitting Balance Ability Good Dynamic Sitting Balance Ability Good Standing Balance and Reactions Static Standing Balance Ability Fair Dynamic Standing Balance Ability Poor Device Used FWW M5 PT-IP Objective Assessments Start: 10/01/21 15:09 Freq: NEEDED Status: Active Protocol: Document 10/01/21 13:30 AB (Rec: 10/01/21 15:22 AB [id number]) Orientation Orientation/Cognition Level of Alertness Alert Orientation Name,Place,Situation Language Function Ability Hard of Hearing Safety Awareness Decreased Safety Awareness Memory Description Short Term Impaired Gross Range of Motion Lower Extremity ROM Assessment Within Functional Limits Strength Lower Extremity Strength Assessment Bilaterally Impaired Hip 4-/5 Knee 3+/5 Coordination Assessment Gross Coordination Gross Coordination WNL Sensation Assessment Sensation Gross Sensation WNL Muscle Tone Muscle Tone WNL Yes M6 PT-IP Treatment Start: 10/01/21 15:09 Freq: NEEDED Status: Active Protocol: Document 10/05/21 11:59 SP (Rec: 10/05/21 16:38 SP [id number]) Physical Therapy Treatment Exercises Exercises Ankle Pumps,Quad Sets,Heel Slides,Straight Leg Raises, Supine Hip Abduction,Seated Knee Flexion/Extension Knee ROM Measurement 70 deg Education Education Provided Safety Other Treatments Other Treatment Performed marching in standing at EOB w/ FWW Min A. M7 PT-IP Assessment and Plan Start: 10/01/21 15:09 Freq: NEEDED Status: Active Protocol: Document 10/05/21 11:59 SP (Rec: 10/05/21 16:38 SP [id number]) PT Summary Assessment and Plan Potential Rehabilitation Potential Fair Status of Condition at Evaluation Evolving Summary Impairments Pain,ROM,Strength,Balance, Coordination,Sensation,Tone, Cognition,Bed Mobility, Transfers,Gait,Activity Tolerance Progress Towards Goals Progressing Toward Goals,Slow Progress due to Pain,Slow Progress due to Medical Issues ,Slow Progress due to Activity Tolerance Assessment Summary Pt reports throat painful, NPO and very low energy to mobility. Pt tires quickly, requires rests breaks for breath and recovery. CGA elevated supine bed mob, standing activitiy:marching/ lateral steps at EOB w/ FWW Min-Mod A. Will initiate CGT tomorrow 10/05/21 with , wanting to participate if can. Pt will require SNF at this time for increase strength and functional mobility. Will continue to assess progress. Goals Bed Mobility Goal Independent Transfer Goal Standby Assistance,Front Wheeled Walker Gait Goal Standby Assistance,Front Wheel Walker Gait Distance 100 Other Goals up/down 3 steps R rail ascending SBA Days to Meet Goals 10 Frequency of Treatment Frequency Of Treatment Once a Day Treatment Plan Physical Therapy Treatment Plan Bed Mobility Training,Transfer Training,Gait Training, Therapeutic Exercise,Balance Retraining,Discharge Planning, Hot or Cold Pack,Neuromuscular Re-ed,Coordination Retraining ,Manual Therapy Other Recommendations and Next Treatment Transfers, gait w/ FWW, Focus Initiate CGT with (she states is always there, wants to start assisting if can) Precautions Other Precautions falls Recommendations To Nursing Amount of Assist Needed 1 Person Assist Discharge Recommendations PT Discharge Recommendations Home with 29/11 Assist Available,Home Health,SNF Rehab,Home vs SNF Transportation Needs at Discharge Private Vehicle,Wheelchair/ Cabulance
--- NOTE | 2021-10-05 13:28 | OT.IPNOTE ---
Attempted to see pt for OT services. Pt states he just finished with P.T. and is too fatigued to participate in any further activity. Pt then declined in bed ADLs stating that he already performed. Will hold and continue to follow.
--- NOTE | 2021-10-05 15:12 | CM.DPC ---
DCP Ongoing SNF Planning: Per MD, pt's swallow seems to have worsened over the past couple days and pt now not able to tolerate much by mouth and seems to be aspirating when attempting oral intake and therefore Surgeon consulted and plan again is for PEG tube placement prior to d/c. Per RN, Jordi held and plan of likely surgery tomorrow 10/06/21 if Surgeon has an opening or possibly Wed and then pt will need to remain in the hospital for 24-48 hrs to confirm PEG functioning. SW called [facility] admissions and updated and they will contact pt's insurance [employer] as pt was auth'd for SNF and state its good until 10/11/21 but will confirm they only need updated clinicals for ongoing SNF auth. Plan: SW to follow closely for PEG tube placement likely tomorrow 10/06/21 and then plan of d/c to [facility] with [employer] [facility] previously completed, will need updated COVID swab likely unless done for surgery. Nayeli Guzman MSW
--- NOTE | 2021-10-05 16:33 | P.PN_ITS ---
Subjective Subjective Interval history: Daily hospital visit. 86-year-old male with recent bilateral strokes, atrial fibrillation, normal LVEF, new diagnosis diabetes admitted due to progressive dysphagia and constant problems with aspiration. Has pending PEG placement tomorrow. Exam Vital Signs (past 8 hours): - 10/05/21 10:47 10/05/21 13:34 10/05/21 15:13 Temperature 97.2 F L 98.8 F Pulse Rate 81 91 H 97 H Respiratory Rate 17 16 21 Blood Pressure 126/78 133/75 Pulse Oximetry 94 95 94 Fraction of Inspired Oxygen 21 Oxygen Delivery Method Room Air Oxygen Flow Rate 0 Const General: cooperative and comfortable Orientation: alert, oriented to person and oriented to place HENMN Head: normal to inspection Eyes Pupils: PERRL EOM: EOM intact bilaterally Neck Other: No lymphadenopathy. Resp Auscultation: clear to auscultation bilaterally Cardio Rhythm: regular rhythm Heart Sounds: S1 normal and S2 normal GI Palpation: soft Auscultation: normal bowel sounds Objective Labs Result Diagrams: 10/05/21 05:02 10/05/21 05:02 Labs: Laboratory Results - last 24 hr 10/05/21 10/05/21 10/05/21 05:02 05:02 05:02 WBC 9.1 RBC 3.88 L Hgb 12.6 L Hct 37.3 L MCV 95.9 MCH 32.4 MCHC 33.8 RDW 16.3 H Plt Count 186 Neut % (Auto) Not Reportable Lymph % (Auto) Not Reportable Payne % (Auto) Not Reportable Eos % (Auto) Not Reportable Baso % (Auto) Not Reportable Lymph # (Auto) Not Reportable Payne # (Auto) Not Reportable Baso # (Auto) Not Reportable Total Counted 100 Seg Neutrophils % 90.0 H Band Neutrophils % 6.0 Lymphocytes % (Manual) 3.0 L Monocytes % (Manual) 1.0 L Neutrophils # (Manual) 8736 H RBC Morphology See below Anisocytosis 1+ H Sodium 132 L Potassium 4.2 Chloride 99 Carbon Dioxide 31 BUN 16 Creatinine 0.77 Estimated GFR > 60 BUN/Creatinine Ratio 20.8 Glucose 191 H Calcium 7.6 L Phosphorus 3.4 Magnesium 1.9 PFSH Medical History Age related cataract Ankle pain Anticoagulation goal of INR 2 to 3 Atrial fibrillation Atrial fibrillation Benign prostatic hyperplasia Chicken pox Cholelithiasis Chronic anticoagulation Chronic back pain COPD (chronic obstructive pulmonary disease) Gout Hearing loss Hemorrhoid History of gastric ulcer History of tobacco use Hyperlipidemia Hypertension Measles Mumps Obesity Osteoarthritis Pericarditis 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 Dysphagia, likely due to recent CVA. Pending PEG placement. 2. Recent bilateral frontal/parietal CVA's, anticoagulation held for procedure. 3. Aspiration pneumonia developing in hospital, reason for PEG placement. 4. Atrial fibrillation, paroxysmal, needs anticoagulation currently on hold. 5. Hypertension, treated adequately. 6. Supratherapeutic INR on warfarin, improving. INR 1.9 yesterday. 7. Polymyalgia rheumatica, on chronic prednisone 5 mg at bedtime 8. BPH 9. Type 2 diabetes, A1c 8.0 10. Hypotension, follow clinically, has treatment for HTN. 11. Chronic diastolic heart failure 12.? Chronic hoarseness, needs vocal cords evaluated Time Spent With Patient Critical Care time: I spent a total of [] minutes of critical care time on this patient's care today; this time is exclusive of procedural time. Quality VTE Deep Vein Thrombosis/Pulmonary Embolism Present on Admission: No
[2021-10-05] MEDS: HYDROCORTISONE 100 MG/2 ML VIAL 50 MG IV (20:54)
[2021-10-06] VITALS (16 sets, daily range): BP systolic 119–147; BP diastolic 67–94; PULSE 87–102; RESP 15–21; TEMP 35.8–36.9; O2SAT 93–100; BMI 25.6
[2021-10-06] MEDS: VANCOMYCIN 1,250 MG/250 ML PIGGYBACK 250 MG IV (02:37)
[2021-10-06] MEDS: MORPHINE 2 MG/ML INJ IV ×3 (04:04→15:30)
[2021-10-06] MEDS: PIPERACILLIN/TAZO 3.375 GM in SODIUM CHLORIDE 0.9% 100 ML IV (04:05)
[2021-10-06] MEDS: INSULIN LISPRO 100 UNIT/ML 3ML VIAL SUBCUT (05:57)
[2021-10-06] MEDS: ALBUTEROL/IPRATROPIUM 3 ML AMPUL INH ×2 (07:44→16:30)
[2021-10-06] MEDS: BUDESONIDE 0.5 MG/2 ML NEB INH ×2 (07:44→16:30)
[2021-10-06] MEDS: AZITHROMYCIN 500 MG in DEXTROSE 5% IN WATER 250 ML 250 MG IV (08:12)
[2021-10-06 08:42] LABS: INR 1.4 (0.9-1.3); Prothrombin Time 16.4 SECONDS (10.1-12.7)
--- NOTE | 2021-10-06 09:05 | SLP.IPNOTE ---
Spoke with pt's briefly about plan for feeding tube surgery planned for today. Discussed goals of tube feeding and Speech Therapy treatment plan thereafter. The pt was awake but with limited alertness and unable to participate in the conversation. Will f/u again today for ongoing education as needed.
--- NOTE | 2021-10-06 10:31 | PT-IP ANOTE ---
Attempted to see pt at 10:28 AM, pt refused therapy including exercises in bed, stating he prefers to rest prior to upcoming surgery today. Not agreeable to PT this PM. Will check back tomorrow.
[2021-10-06 11:02] LABS: COVID19 -Nasal RAPID Negative (Negative)
--- NOTE | 2021-10-06 11:50 | OT.IPNOTE ---
Pt to have surgery today and therefore HOLD OT today and check on the pt tomorrow.
--- NOTE | 2021-10-06 11:58 | PM.PREOP ---
Pre-operative Note Interval Note History & Physical reviewed/Exam performed by Physician: Yes Changes to H&P: No
[2021-10-06] MEDS: LACTATED RINGERS 1,000 ML 42 ML IV ×2 (12:03→15:20)
--- NOTE | 2021-10-06 12:24 | SLP.IPNOTE ---
Discussed plan of care and diet moving forward as he is having PEG tube placed today. Pt and expressed understanding of and agreement with plan of care. Did not complete oral motor exercises at this time. Will follow-up following PEG tube placement to review exercises and provide pt education.
--- NOTE | 2021-10-06 12:47 | SUR.OPER ---
Supine on acute care bed, head on pillow, arms placed at sides, legs uncrossed.
--- NOTE | 2021-10-06 13:12 | P.OP_ITS ---
Operative Date/Time/Diagnoses Date of procedure: 10/06/21 Time of procedure: 13:12 Pre-op diagnosis: Dysphagia Post-op diagnosis: same Procedure & Clinicians Procedure: Percutaneous Gastrostomy Tube placement Same procedure as scheduled: Yes Indications: Dysphagia s/p CVA Surgeon: Bry Shelton Hot Kettle Tender: Jeremias Franks Click Yes if Unassisted: Yes Anesthesia Type: General Operative Notes Findings: Tube within the stomach rotates freely Specimen(s): none sent Estimated Blood Loss (mL): 5 Procedure in detail: Patient was brought to the operating room placed supine on the table. Bilateral lower extremity compression devices were applied. General anesthesia was induced he was intubated with an endotracheal tube. Time-out was then performed. He was prepped and draped in sterile fashion. The endoscope was carefully inserted into the mouth advanced down the esophagus and into the stomach. Stomach was notable for the absence of a pylorus there appeared to be a previous gastro enteral anastomosis. The midbody of the stomach was palpated and this was observed endoscopically. A needle was introduced but its point was not observed. A couple more attempts were made to enter the stomach with the finder needle and it was successful. the entry of needle was directly observed as it entered the stomach. the guide wire was then threaded through the needle. Through the scope the snare was placed and the guidewire was grasped and extracted. The guidewire was then used to pull the gastrostomy tube into the stomach. The incision around the needle was enlarged. the Tube was then pulled through the abdominal wall snuggly. The bumper was snugged down such that the tube still rotated freely. Post-operative Condition: stable Disposition: Acute Care
--- NOTE | 2021-10-06 13:31 | SUR.OPER ---
Lidocaine 1% 5cc administered by Dr. Shelton. Vial came from [employer] kit.
--- NOTE | 2021-10-06 15:08 | PC.NURSE ---
Addendum entered by Kelly Wallis R.N. 10/06/21 17:02: ORDERS RECEIVED FROM BOTH SURGEON AND HOSPITALIST- PLANNING FOR DISCHARGE TO [facility] TOMORROW AFTERNOON Original Note: pt returned from OR post-op with peg tube placement upper mid abdomen- clamped and site is c/d/i - he tolerated procedure well and is resting comfortably at present with at bedside- orders received to cancel all abx/ivf/pain rx etc- telephone call to to clarify this and awaiting response
--- NOTE | 2021-10-06 16:14 | P.PN_ITS ---
Subjective Subjective Interval history: Hospitalist daily visit. Patient is post op G tube placement. No new complaints. Patient will be transferred out tomorrow and so transitioned to medication by G tube tomorrow. Will cover for another 5 days for possible aspiration pneumonia with liquid antibiotics but of note chest xray did not show pneumonia. Exam Vital Signs (past 8 hours): - 10/06/21 13:26 10/06/21 13:31 10/06/21 13:36 Temperature 98.4 F Pulse Rate 92 H 100 H 87 Respiratory Rate 21 20 21 Blood Pressure 127/71 130/79 140/67 Pulse Oximetry 100 100 95 10/06/21 13:50 10/06/21 14:00 10/06/21 14:48 Temperature 98.5 F Pulse Rate 93 H 91 H 88 Respiratory Rate 16 15 17 Blood Pressure 119/74 127/74 143/83 H Pulse Oximetry 95 94 10/06/21 14:53 10/06/21 15:18 Temperature 97.2 F L Pulse Rate 101 H 88 Respiratory Rate 16 18 Blood Pressure 140/79 147/94 H Pulse Oximetry 95 97 Fraction of Inspired Oxygen 21 Oxygen Delivery Method Room Air Oxygen Flow Rate 0 Const General: cooperative and comfortable Resp Auscultation: clear to auscultation bilaterally Cardio Rate: regular rate Rhythm: regular rhythm Heart Sounds: S1 normal and S2 normal GI Other: G-tube has been placed. Objective Labs Result Diagrams: 10/05/21 05:02 10/05/21 05:02 Labs: Laboratory Results - last 24 hr 10/06/21 10/06/21 08:25 10:34 PT 16.4 H D INR 1.4 H SARS-CoV-2 (PCR) Negative [facility] Medical History Age related cataract Ankle pain Anticoagulation goal of INR 2 to 3 Atrial fibrillation Atrial fibrillation Benign prostatic hyperplasia Chicken pox Cholelithiasis Chronic anticoagulation Chronic back pain COPD (chronic obstructive pulmonary disease) Gout Hearing loss Hemorrhoid History of gastric ulcer History of tobacco use Hyperlipidemia Hypertension Measles Mumps Obesity Osteoarthritis Pericarditis 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 Dysphagia, likely due to recent CVA. PEG placement placed. 2. Recent bilateral frontal/parietal CVA's, anticoagulation held for procedure. 3. Aspiration pneumonia developing in hospital, reason for PEG placement.Will transition to liquid antibitoics that can be given by G-tube tomorrow. 4. Atrial fibrillation, paroxysmal, needs anticoagulation currently on hold. Can start after 24 hours post op, 5. Hypertension, treated adequately. 6. Supratherapeutic INR on warfarin, improving. INR 1.9 yesterday. 7. Polymyalgia rheumatica, on chronic prednisone 5 mg at bedtime 8. BPH 9. Type 2 diabetes, A1c 8.0 10. Hypotension, follow clinically, has treatment for HTN. 11. Chronic diastolic heart failure 12.? Chronic hoarseness, needs vocal cords evaluated Time Spent With Patient Critical Care time: I spent a total of [] minutes of critical care time on this patient's care today; this time is exclusive of procedural time. Quality VTE Deep Vein Thrombosis/Pulmonary Embolism Present on Admission: No
--- NOTE | 2021-10-06 17:25 | CM.DPC ---
DCP/continued: Reviewed chart. Received notification this AM that PEG tube being placed today. D/C anticipated for tomorrow 10-07-21. [employer] MANAGER left vm with [facility] informing them of above. CM team to check on whether or not patient needs COVID test prior to d/c. Provider made aware of above d/c plan. P: [facility] when stable. PEG tube placed today. MARC
[2021-10-07] VITALS (8 sets, daily range): BP systolic 107–142; BP diastolic 62–74; PULSE 76–101; RESP 15–21; TEMP 35.9–36.6; O2SAT 94–96
[2021-10-07 05:10] LABS: Add Manual Diff / Slide Review NO; Basophils Absolute Auto 100 /uL (0-100); Basophils Percent Auto 0.5 % (0-2); Eosinophils Absolute Auto 0 /uL (0-450); Hematocrit 40.2 % (41-53); Hemoglobin 13.8 g/dL (13.5-17.5); Lymphocytes Absolute Auto 300 /uL (1100-4500); Lymphocytes Percent Auto 3.1 % (25-40); Mean Corpuscular HGB Conc 34.3 % (30-36); Mean Corpuscular Hemoglobin 32.6 PG (26-34); Monocytes Absolute Auto 400 /uL (0-900); Monocytes Percent Auto 4.4 % (3-14); Neutrophils Absolute Auto 9400 /uL (1500-7000); Platelet Count 213 X10^3/uL (150-400); Red Blood Cell Count 4.23 X10^6/uL (4.5-5.9); Red Cell Distribution Width 16.8 % (11.6-14.8); White Blood Cell Count 10.3 X10^3/uL (4.5-11.0)
[2021-10-07 05:23] LABS: Albumin 2.8 g/dL (3.5-5.0); BUN Creatinine Ratio 27.1 (6-22); Blood Urea Nitrogen 16 mg/dL (9-20); C-Reactive Protein Quant 5.9 mg/dL (<1.0); Calcium 8.1 mg/dL (8.4-10.2); Carbon Dioxide 28 mmol/L (22-32); Chloride 101 mmol/L (98-107); Estimated Glomerular Filt Rate > 60 mL/min (>60); Glucose 206 mg/dL (80-110); HEMOLYSIS < 15 (0-50); Phosphorous 3.1 mg/dL (2.3-3.7); Potassium 3.9 mmol/L (3.4-5.1); Sodium 135 mmol/L (137-145)
--- NOTE | 2021-10-07 08:40 | PM.PNPO.1 ---
Subjective Subjective Date Patient Seen: 10/07/21 Time Patient Seen: 08:40 Interval history: no acute events Exam Vital Signs (past 8 hours): - 10/07/21 04:15 Temperature 96.6 F L Pulse Rate 83 Respiratory Rate 18 Blood Pressure 142/66 H Pulse Oximetry 95 Fraction of Inspired Oxygen 21 Oxygen Delivery Method Room Air Oxygen Flow Rate 0 Narrative Exam Narrative: Gen-Elderly man alert and oriented Abdomen-soft nontender. PEG in place dressing CDI Objective Labs Result Diagrams: 10/07/21 04:53 10/07/21 04:53 Labs: Laboratory Results - last 24 hr 10/06/21 10/06/21 10/07/21 08:25 10:34 04:53 WBC 10.3 RBC 4.23 L Hgb 13.8 Hct 40.2 L MCV 95.0 MCH 32.6 MCHC 34.3 RDW 16.8 H Plt Count 213 Neut % (Auto) 92.0 H Lymph % (Auto) 3.1 L [place] % (Auto) 4.4 Eos % (Auto) 0.0 L Baso % (Auto) 0.5 Neut # (Auto) 9400 H Lymph # (Auto) 300 L [place] # (Auto) 400 Eos # (Auto) 0 Baso # (Auto) 100 PT 16.4 H D INR 1.4 H Sodium Potassium Chloride Carbon Dioxide BUN Creatinine Estimated GFR BUN/Creatinine Ratio Glucose Calcium Phosphorus C-Reactive Protein Albumin SARS-CoV-2 (PCR) Negative 10/07/21 04:53 WBC RBC Hgb Hct MCV MCH MCHC RDW Plt Count Neut % (Auto) Lymph % (Auto) [place] % (Auto) Eos % (Auto) Baso % (Auto) Neut # (Auto) Lymph # (Auto) [place] # (Auto) Eos # (Auto) Baso # (Auto) PT INR Sodium 135 L Potassium 3.9 Chloride 101 Carbon Dioxide 28 BUN 16 Creatinine 0.59 L Estimated GFR > 60 BUN/Creatinine Ratio 27.1 H Glucose 206 H Calcium 8.1 L Phosphorus 3.1 C-Reactive Protein 5.9 H Albumin 2.8 L SARS-CoV-2 (PCR) [facility] Medical History Age related cataract Ankle pain Anticoagulation goal of INR 2 to 3 Atrial fibrillation Atrial fibrillation Benign prostatic hyperplasia Chicken pox Cholelithiasis Chronic anticoagulation Chronic back pain COPD (chronic obstructive pulmonary disease) Gout Hearing loss Hemorrhoid History of gastric ulcer History of tobacco use Hyperlipidemia Hypertension Measles Mumps Obesity Osteoarthritis Pericarditis 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 Tinnitus Surgical History Anesthesia History of ankle surgery (~1965) History of appendectomy (~2018) History of cataract removal with insertion of prosthetic lens History of laparotomy (~2000) History of tonsillectomy (~1944) Family History Mother Hypertension Heart disease Diabetes mellitus Hyperlipidemia Father Hypertension Hyperlipidemia Grandmother Pneumonia Social History marital status: household members: spouse occupational status: previously employed Smoking Status: Former smoker alcohol intake: former substance use type: does not use Assessment & Plan Post-op Postoperative Procedures: Procedures Operation Date: 09/30/21 07:45 Actual Procedure Side Surgeon p Peg Tube Insertion Bry Shelton MD Operation Date: 10/06/21 11:45 Actual Procedure Side Surgeon p Peg Tube Insertion Bry Shelton MD Postoperative status narrative: POD 1 sp PEG. Doing well. -Start tube feeds -F/U up in surgical clinic as needed. -No activity restriction -May resume anticoagulation today Quality VTE Deep Vein Thrombosis/Pulmonary Embolism Present on Admission: No
[2021-10-07] MEDS: AMOX/CLAV 400 MG/5ML SUSP PO ×2 (08:58→15:22)
[2021-10-07] MEDS: BUDESONIDE 0.5 MG/2 ML NEB INH ×2 (09:17→19:36)
[2021-10-07] MEDS: ALBUTEROL 2.5 MG/3 ML NEB (ADULT) INH ×3 (09:18→19:36)
--- NOTE | 2021-10-07 09:27 | DIET.CONS ---
Dietary Consultation Note Admission Date: 09/25/2021 19:39 Assessment: 86y M s/p PEG placement related to dysphagia following CVA in August. 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 Pt to d/c to SNF today once EN initiated. EN education and supplies to be provided to pt by [facility] via home services. Per surgical report, pt seems to have had prior gastric procedure removing pylorus. If pyloric sphincter absent and pt experiencing dumping syndrome, [facility] consultation for continuous feeding via pump. Ht: 177.8 cm Wt: 88.5 kg BMI: 27.5 Last BM: 09/29/21 (10/06/21 11:53) MNA: 9 Tim Score: 14 Diet: 10/06/21 16:05 NPO Diet Diet Modifications: Oral meds to be by NG tube startng tomorrow October 07 NPO Type: Strict Labs: RBC 4.23 X10^6/uL (4.5-5.9) L 10/07/21 04:53 Hgb 13.8 g/dL (13.5-17.5) 10/07/21 04:53 Hct 40.2 % (41-53) L 10/07/21 04:53 Creatinine 0.59 mg/dL (0.66-1.25) L 10/07/21 04:53 Hemoglobin A1c 8.0 % (4.0-6.0) H 10/03/21 00:01 Lactate 1.8 mmol/L (0.7-2.1) 10/03/21 17:39 NT-Pro-B Natriuret Pep 3600 pg/mL (<450) H 09/27/21 20:40 Nutrition Diagnosis: inadequate and unsafe for oral intake r/t difficulty swallowing aeb pt c CVA in August with difficulty protecting airway c POs not meeting EER, pt s/p placement of PEG for artificial nutrition. Interventions: 1. Goal: Six times daily 300mL bolus enteral feed via PEG using Glucerna 1.2 with 60mL flush prior to formula and 120mL after. Sample schedule: 0800, 1000, 1200, 1400, 1600, 1800. Feed plus formula provides 2160 kcals (24kcal/kg), 108g PRO (1.2g/kg), 206g CHO, 108g fat, 1458mL feed water 1080mL free water flushes with total daily volume 2658mL (30mL/kg). 2. Please keep HOB >30 degrees while feeding and for 1h post-feed to reduce risk for aspiration. 3. If pt experiencing volume intolerance, okay to reduce feed volume or frequency as tolerated for first few days ensuring adequate hydration. EER: 2000 kcals (25kcal/kg), 90-100g PRO (1-1.3g/kg) Monitoring/Evaluations: [facility] to provide supplies and education on [facility]p home formula and plan on d/c. Electronically Signed by: Rachelle Rutherford 10/07/21 09:27 Clinical Dietitian [address] [id number]
--- NOTE | 2021-10-07 12:10 | PT.IPTN ---
Current Diagnoses Pneumonitis due to inhalation of food and vomit (09/25/21) Dysphagia, unspecified (09/25/21) Surgery Performed Operation Date: 09/30/21 07:45 Actual Procedures p Peg Tube Insertion - Bry Shelton MD Operation Date: 10/06/21 11:45 Actual Procedures p Peg Tube Insertion - Bry Shelton MD Physical Therapy Treatment Note M2 PT-IP Current Condition Start: 10/01/21 15:09 Freq: NEEDED Status: Active Protocol: Document 10/05/21 11:59 SP (Rec: 10/05/21 16:38 SP [id number]) Physical Therapy Current Condition Current Condition Evaluation Date 10/01/21 Treatment Diagnosis late effects of CVA; difficulty in walking Onset Date 09/25/21 M3 PT-IP Subjective Start: 10/01/21 15:09 Freq: NEEDED Status: Active Protocol: Document 10/07/21 11:51 KS (Rec: 10/07/21 13:20 KS [id number]) Subjective Physical Therapy Visit Type Type Treatment Note Visit Start Time 11:51 Visit Stop Time 12:10 Total Visit Minutes 19 Notes Pts present during treatment Number of REPAIR ELECT[employer]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 Visits 4 M4 PT-IP Mobility and Gait Start: 10/01/21 15:09 Freq: NEEDED Status: Active Protocol: Document 10/07/21 11:51 KS (Rec: 10/07/21 13:20 KS [id number]) PT-Bed Mobility Assessment Supine to Sit Supine to Sit Minimal Assistance,1 Person Assistance,Head of Bed Elevated,Bedrails Scooting Scooting to Edge of Bed Standby Assistance,Contact Guard Assistance PT-Transfer Assessment Sit to and From Stand Sit to and from Stand Moderate Assistance,1 Person Assistance,Use of Upper Extremities Equipment Transfer Assistive Device Gait Belt,Front Wheeled Walker Orthotic/Prosthetic Devices or Brace: No Transfers Transfer Destination Chair Transfer Technique Stand Step Pivot Transfer Ability Level of Assist Minimal Assistance,Moderate Assistance,1 Person Assistance ,Use of Upper Extremities Comments Mobility Comments Pt in bed upon arrival and agreeable to transfer to chair . Pt Min A for sup<>sit w/ HOB fully inclined - not wanting to logroll due to IV on L arm pt instructed to keep as still as possible. SBA to CGA for scooting EOB. Pt w/ increased RR. Pt sit<>stand w/ FWW Mod A and cues for hand placement. He reported dizziness upon standing but was eager to transfer to chair and unable to stand long enough to tolerate BP reading. Min/Mod A for stand step pivot from bed to chair w/ cues and FWW management. Pts BP: 126/73 sitting. Pt refused further therapy due to fatigue and left in chair w/ all needs in reach. Gait Assessment Gait Gait Assistance Required: Minimum Assistance,Moderate Assistance,1 Person Assist Distance (Feet) 2 Able to Maintain Weight Bearing Status Yes During Gait Assistive Devices Assistive Device Gait Belt,Front Wheeled Walker Orthotic/Prosthetic Devices or Brace: No Gait Deviations General Gait Pattern Antalgic,Decreased Stride Length,Decreased Feet Clearance,Flexed Trunk,Step-to Gait Factors Limiting Gait Function Factors Limiting Gait Function Decreased Activity Tolerance, Decreased Strength,Difficulty Following Directions,Poor Balance,Poor Safety Awareness, Respiratory Distress Comments Gait Comments Few steps suring stand step pivot only w/ FWW management and safety cues. Stair Climbing Assessment Comments Stair Climbing Comments Unable to assess, has 3 steps R RHR at home will need to assess for safe DC when able. PT-Balance Assessment Sitting Balance and Reactions Static Sitting Balance Ability Good Dynamic Sitting Balance Ability Good Standing Balance and Reactions Static Standing Balance Ability Fair Dynamic Standing Balance Ability Poor Device Used FWW M5 PT-IP Objective Assessments Start: 10/01/21 15:09 Freq: NEEDED Status: Active Protocol: Document 10/01/21 13:30 AB (Rec: 10/01/21 15:22 AB [id number]) Orientation Orientation/Cognition Level of Alertness Alert Orientation Name,Place,Situation Language Function Ability Hard of Hearing Safety Awareness Decreased Safety Awareness Memory Description Short Term Impaired Gross Range of Motion Lower Extremity ROM Assessment Within Functional Limits Strength Lower Extremity Strength Assessment Bilaterally Impaired Hip 4-/5 Knee 3+/5 Coordination Assessment Gross Coordination Gross Coordination WNL Sensation Assessment Sensation Gross Sensation WNL Muscle Tone Muscle Tone WNL Yes M6 PT-IP Treatment Start: 10/01/21 15:09 Freq: NEEDED Status: Active Protocol: Document 10/07/21 11:51 KS (Rec: 10/07/21 13:20 KS [id number]) Physical Therapy Treatment Education Education Provided Safety M7 PT-IP Assessment and Plan Start: 10/01/21 15:09 Freq: NEEDED Status: Active Protocol: Document 10/07/21 11:51 KS (Rec: 10/07/21 13:20 KS [id number]) PT Summary Assessment and Plan Potential Rehabilitation Potential Fair Status of Condition at Evaluation Evolving Summary Impairments Pain,ROM,Strength,Balance, Coordination,Sensation,Tone, Cognition,Bed Mobility, Transfers,Gait,Activity Tolerance Progress Towards Goals Progressing Toward Goals,Slow Progress due to Pain,Slow Progress due to Medical Issues ,Slow Progress due to Activity Tolerance Assessment Summary Pt requiring Min A for bed mobility, Mod A for sit<>Stand w/ FWW and Min/Mod for stand step pivot w/ FWW w/ cues for FWW management and safety. Pt still dizzy when standing and feeling very weak. Unable to stand long enough for BP reading today. At this time, pt will require SNF to improvr strength and activity tolerance as will not be able to provide necessary assist to pt. Will continue to assess progress. Goals Bed Mobility Goal Independent Transfer Goal Standby Assistance,Front Wheeled Walker Gait Goal Standby Assistance,Front Wheel Walker Gait Distance 100 Other Goals up/down 3 steps R rail ascending SBA Days to Meet Goals 10 Frequency of Treatment Frequency Of Treatment Once a Day Treatment Plan Physical Therapy Treatment Plan Bed Mobility Training,Transfer Training,Gait Training, Therapeutic Exercise,Balance Retraining,Discharge Planning, Hot or Cold Pack,Neuromuscular Re-ed,Coordination Retraining ,Manual Therapy Other Recommendations and Next Treatment Transfers, gait w/ FWW, Focus Initiate CGT with (she states is always there, wants to start assisting if can) Precautions Other Precautions falls Recommendations To Nursing Amount of Assist Needed 1 Person Assist Discharge Recommendations PT Discharge Recommendations Home with 29/11 Assist Available,Home Health,SNF Rehab,Home vs SNF Transportation Needs at Discharge Private Vehicle,Wheelchair/ Cabulance
--- NOTE | 2021-10-07 12:24 | SLP.IPNOTE ---
Pt not appropriate for speech therapy exercises today due to low energy as he recovers from PEG placement surgery yesterday. Provided pt and family education regarding PEG tube, diet, exercises, and timeline for recovery. Reviewed exercises for pt to continue when his energy has improved and discussed outpatient speech therapy options to continue care. Pt and expressed understanding. Pt to discharge to [facility] today. Recommend referral for ENT to rule out structural abnormalities as pt continues to report pain in his throat.
--- NOTE | 2021-10-07 13:33 | OT.IPNOTE ---
Pt just in the middle of getting back to bed with nursing and able to assist to help get his trunk back in to bed, no charge. Pt too tired to do OT treatment at this time.
--- NOTE | 2021-10-07 15:29 | PM.PN.1 ---
Subjective Subjective Interval history: Hospitalist daily visit. Feels so much better than prior to G tube placement. Has no pain and more energy. Sleeping better. Still needing to do self suction of pharyngeal mucous. Exam Vital Signs (past 8 hours): - 10/07/21 09:21 10/07/21 09:36 10/07/21 14:00 Temperature 97.0 F L 97.4 F L Pulse Rate 92 H 76 91 H Respiratory Rate 16 15 19 Blood Pressure 136/74 107/62 Pulse Oximetry 94 96 94 10/07/21 14:12 Temperature Pulse Rate 92 H Respiratory Rate 20 Blood Pressure Pulse Oximetry 94 Fraction of Inspired Oxygen 21 Oxygen Delivery Method Room Air Oxygen Flow Rate 0 Const General: cooperative and comfortable HENMT Head: normal to inspection Resp Auscultation: clear to auscultation bilaterally Cardio Heart Sounds: S1 normal and S2 normal GI Auscultation: normal bowel sounds Other: Post surgery with tube placement. Incision site clean and dry. Extrem General: normal to inspection Objective Labs Result Diagrams: 10/07/21 04:53 10/07/21 04:53 Labs: Laboratory Results - last 24 hr 10/07/21 10/07/21 04:53 04:53 WBC 10.3 RBC 4.23 L Hgb 13.8 Hct 40.2 L MCV 95.0 MCH 32.6 MCHC 34.3 RDW 16.8 H Plt Count 213 Neut % (Auto) 92.0 H Lymph % (Auto) 3.1 L [place] % (Auto) 4.4 Eos % (Auto) 0.0 L Baso % (Auto) 0.5 Neut # (Auto) 9400 H Lymph # (Auto) 300 L [place] # (Auto) 400 Eos # (Auto) 0 Baso # (Auto) 100 Sodium 135 L Potassium 3.9 Chloride 101 Carbon Dioxide 28 BUN 16 Creatinine 0.59 L Estimated GFR > 60 BUN/Creatinine Ratio 27.1 H Glucose 206 H Calcium 8.1 L Phosphorus 3.1 C-Reactive Protein 5.9 H Albumin 2.8 L PFSH Medical History Age related cataract Ankle pain Anticoagulation goal of INR 2 to 3 Atrial fibrillation Atrial fibrillation Benign prostatic hyperplasia Chicken pox Cholelithiasis Chronic anticoagulation Chronic back pain COPD (chronic obstructive pulmonary disease) Gout Hearing loss Hemorrhoid History of gastric ulcer History of tobacco use Hyperlipidemia Hypertension Measles Mumps Obesity Osteoarthritis Pericarditis 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 Dysphagia, likely due to recent CVA. PEG placement placed. Feels better. Will begin feeds after 24 hours post op. 2. Recent bilateral frontal/parietal CVA's, anticoagulation held for procedure. Can re-initiate. 3. Aspiration pneumonia developing in hospital, reason for PEG placement. Transitioned to liquid antibiotics that can be given by G-tube. 4. Atrial fibrillation, paroxysmal, needs anticoagulation currently on hold. Can start after 24 hours post op, starting this evening. 5. Hypertension, treated adequately. 6. Supratherapeutic INR on warfarin, improving. INR 1.9 yesterday. No need to follow, has been switched to Apixaban. 7. Polymyalgia rheumatica, on chronic prednisone 5 mg at bedtime 8. BPH 9. Type 2 diabetes, A1c 8.0 10. Hypotension, follow clinically, has treatment for HTN. BP in good range now. 11. Chronic diastolic heart failure 12.? Chronic hoarseness, needs vocal cords evaluated. Discomfort in throat has stopped since G-Tube placed. Time Spent With Patient Critical Care time: I spent a total of [] minutes of critical care time on this patient's care today; this time is exclusive of procedural time. Quality VTE Deep Vein Thrombosis/Pulmonary Embolism Present on Admission: No
[2021-10-07] MEDS: INSULIN LISPRO 100 UNIT/ML 3ML VIAL 10 UNIT SUBCUT (17:48)
--- NOTE | 2021-10-07 19:18 | PC.NURSE ---
1900 bolus feeding held due to 300ml residual. Patient has positive bowel tones, is passing gas, and has no N/V.
[2021-10-07] MEDS: AMOX/CLAV 400 MG/5ML SUSP 800 MG TUBE (20:59)
[2021-10-07] MEDS: METOPROLOL TARTRATE 5 MG/5 ML INJ IV (21:01)
[2021-10-07] MEDS: APIXABAN 5 MG TABLET PO (21:01)
[2021-10-08] VITALS (9 sets, daily range): BP systolic 117–149; BP diastolic 65–85; PULSE 68–105; RESP 15–20; TEMP 36.1–36.2; O2SAT 92–96
--- NOTE | 2021-10-08 06:33 | DIET.CONS2 ---
Dietary Inpatient Consultation Note Admission Date: 09/25/2021 19:39 Pt TF held last evening secondary to 300mL residuals. Okay for TF volume or feed frequency to not meet feeding goals for first 1-3 days as long as pt staying adequately hydrated with water flushes. Continue to bolus feed as tolerated. [facility] will adjust formula and feeding rate to terminal [facility] home plan per their RDs once pt d/c'd home from SNF. Diet: 10/06/21 16:05 NPO Diet Diet Modifications: Oral meds to be by NG tube startng tomorrow October 07 NPO Type: Strict 10/07/21 Lunch Tube Feeding Diet Diet Modifications: Safety Tray needed?: No TF Supplement type: Glucerna 1.2 leyla TF mode of delivery: Bolus Starting flow rate mL/hr: 300 Flow rate goal mL/hr: 300 Titration Schedule to reach Goal Rate: as tolerated Max total daily volume in mL: 2,658 Free fluid: 180 Free Water Frequency: Q4H Comment: free water flushes 60mL prior to feed, 120mL after; HOB >30 Nutrition Percent Meal Consumed pt is NPO 10/07/21 18:00 Type of Feeding Tube PEG 10/07/21 19:17 Type of Feeding Tube PEG 10/07/21 17:00 Type of Feeding Tube PEG 10/07/21 13:00 Electronically Signed by: Rachelle Rutherford 10/08/21 06:33 Clinical Dietitian [address] [address]
[2021-10-08] MEDS: AMOX/CLAV 400 MG/5ML SUSP 800 MG TUBE ×2 (08:37→21:17)
[2021-10-08] MEDS: APIXABAN 5 MG TABLET PO ×2 (08:38→21:14)
[2021-10-08] MEDS: ALBUTEROL 2.5 MG/3 ML NEB (ADULT) INH ×2 (10:30→17:54)
[2021-10-08] MEDS: BUDESONIDE 0.5 MG/2 ML NEB INH ×2 (10:30→17:54)
--- NOTE | 2021-10-08 10:33 | OT.IP.TRT ---
Current Diagnoses Pneumonitis due to inhalation of food and vomit (09/25/21) Dysphagia, unspecified (09/25/21) Surgery Performed Operation Date: 09/30/21 07:45 Actual Procedures p Peg Tube Insertion - Bry Shelton MD Operation Date: 10/06/21 11:45 Actual Procedures p Peg Tube Insertion - Bry Shelton MD Occupational Therapy Treatment Note M2 OT-IP Current Condition Start: 10/02/21 12:06 Freq: Status: Active Protocol: Document 10/02/21 11:10 [facility] (Rec: 10/02/21 12:21 [facility] [id number]) Occupational Therapy Current Condition Current Condition Evaluation Date 10/02/21 Treatment Diagnosis Acute hypoxic respiratory failure, COPD exacerbation M3 OT- IP Subjective and Pain Start: 10/02/21 12:06 Freq: Status: Active Protocol: Document 10/08/21 10:01 [facility] (Rec: 10/08/21 12:31 [facility] [id number]) OT- Subjective Occupational Therapy Visit Type Type Treatment Note Visit Start Time 10:01 Visit Stop Time 10:33 Total Visit Minutes 32 Occupational Therapy Visit Comments Patient Comments Pt wanting to go to the bathroom for a bowel movement. Patient/Caregiver Goals TO go to skilled rehab. OT Pain Assessment Pain When Pain Assessed At Rest Pain Present Pain Present Denied Pain M4 OT- IP ADL's Start: 10/02/21 12:06 Freq: Status: Active Protocol: Document 10/08/21 10:01 [facility] (Rec: 10/08/21 12:31 [facility] [id number]) OT DCA-Swsm-Qmbuqnm Comments OT Self-Feeding Comments Pt has PEG tube OT ADL-Toileting General Evaluation Toileting Ability Maximum Assistance Areas Needing Assistance Manage Clothing,Perform Perineal Hygiene Comments OT Toileting Comments Assist to stand MAX AX 1 and assist for hygiene at this time. Pt states feels plugged up and notified nursing. OT ADL-Bathing Comments OT Bathing Comments Sponge bath more appropriate at this time M5 OT- IP IADL's Start: 10/02/21 12:06 Freq: Status: Active Protocol: Document 10/02/21 11:10 [facility] (Rec: 10/02/21 12:21 [facility] [id number]) OT-Instrumental Activities of Daily Living Home Safety Awareness Home Safety Comments Pt states prior was able to care for himself for all needs . M6 OT- IP Functional Cognition Start: 10/02/21 12:06 Freq: Status: Active Protocol: Document 10/08/21 10:01 [facility] (Rec: 10/08/21 12:31 [facility] [id number]) Cognitive Factors Limiting Selfcare Function Cognitive Ability Level of Alertness Alert Patient Orientation Name,Place,Situation Attention Span Ability Capable of Focused Attention, Capable of Sustained Attention Ability to Follow Commands Able to Follow One Step Commands Cognitive Comments Cognitive Assessment Comments Pt able to follow commands well today. Pt needing encouragement and vc for safety with FWW. M7 OT- IP Mobility and Balance Start: 10/02/21 12:06 Freq: Status: Active Protocol: Document 10/08/21 10:01 [facility] (Rec: 10/08/21 12:31 [facility] [id number]) OT- Bed Mobility Assessment Supine to Sit Supine to Sit Assist Contact Guard Assistance OT-Transfer Assessment Sit to and From Stand Sit to and from Stand Minimal Assistance,Maximum Assistance,2 Person Assistance Transfers Transfer Ability Minimal Assistance,Moderate Assistance,1 Person Assistance ,2 Person Assistance Technique Transfer Destination Bed,Chair,Toilet Transfer Technique Stand Step Pivot Devices Transfer Assistive Devices Gait Belt,Front Wheeled Walker Comments Mobility Comments CGA to help get out of the bed with HOB up. LIZA with FWW to get to the toilet. Pt needng MAX A x1 to stand from the toilet and MODA X2 with FWW to walk back to the recliner. OT- Balance Assessment Sitting Balance and Reactions Static Sitting Balance Ability Good Dynamic Sitting Balance Ability Good Standing Balance and Reactions Static Standing Balance Ability Fair M8 OT- IP Objective Assessments Start: 10/02/21 12:06 Freq: Status: Active Protocol: Document 10/02/21 11:10 [facility] (Rec: 10/02/21 12:21 [facility] [id number]) OT Strength Comments Strength Comments WFl for transfer needs. OT-Muscle Tone Assessment Muscle Tone WNL Yes M9 OT- IP Assessment and Plan Start: 10/02/21 12:06 Freq: Status: Active Protocol: Document 10/08/21 10:01 [facility] (Rec: 10/08/21 12:31 [facility] [id number]) OT Summary Assessment and Plan Potential Rehabilitation Potential Good Analytic Complexity at Evaluation Moderate Summary OT Impairments Strength,Balance,Functional Mobility,Self-Feeding,Grooming ,Dressing,Toileting,Bathing, Toilet Transfers,Shower Transfers,Activity Tolerance Progress Towards Goals Progressing Toward Goals Assessment Summary Pt able to walk to the bathroom today with LIZA with FWW to the bathroom and MODA X 2 with FWW to walk to the recliner. Pt to go to skilled rehab when medically stable. Goals Self-Feeding Goal Independent Grooming Goal Independent Dressing Goal Independent Toileting Goal Independent Bathing Goal Independent Toilet Transfer Goal Independent Shower Transfer Goal Independent Days to Meet Goals 29 Frequency of Treatment Frequency Of Treatment Once a Day Treatment Plan OT Treatment Plan ADL Training,Functional Cognition Training,Functional Mobility,Patient/Family Education,Discharge Planning Discharge Recommendations OT Discharge Recommendations SNF Rehab Transportation Needs at Discharge Wheelchair/Cabulance
--- NOTE | 2021-10-08 11:09 | SLP.IPNOTE ---
Pt just completed transfer from bed to bathroom and bathroom to chair and reported exhaustion. He stated he also has not had a tube feeding yet today. Provided pt education regarding suction and strict NPO diet in conjunction with tube feedings. Pt expressed understanding. No oral exercises completed today due to pt's low energy.
--- NOTE | 2021-10-08 14:09 | PT-IP ANOTE ---
Checked pn pt at 14:09, pt sleeping but woke up easily and refused PT due to high level of fatigue. Will check back tomorrow.
--- NOTE | 2021-10-08 20:03 | P.PN_ITS ---
Exam Vital Signs (past 8 hours): - 10/08/21 14:00 10/08/21 17:00 10/08/21 17:57 Temperature 97.0 F L 97.0 F L Pulse Rate 88 78 72 Respiratory Rate 15 17 18 Blood Pressure 137/79 145/74 H Pulse Oximetry 92 96 94 Fraction of Inspired Oxygen 21 Oxygen Delivery Method Room Air Oxygen Flow Rate 0 Narrative Exam Narrative: Appears in no distress. Alert and oriented. HEENT: Pupils equal react to light. Extraocular movement normal. Cardiovascular: Heart sounds normal. Atrial fibrillation. Respiratory: Clear. Abdomen: G-tube is clean and dry at the surgical site. Objective Labs Result Diagrams: 10/07/21 04:53 10/07/21 04:53 [facility] Medical History Age related cataract Ankle pain Anticoagulation goal of INR 2 to 3 Atrial fibrillation Atrial fibrillation Benign prostatic hyperplasia Chicken pox Cholelithiasis Chronic anticoagulation Chronic back pain COPD (chronic obstructive pulmonary disease) Gout Hearing loss Hemorrhoid History of gastric ulcer History of tobacco use Hyperlipidemia Hypertension Measles Mumps Obesity Osteoarthritis Pericarditis 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 Dysphagia, likely due to recent CVA. PEG placement placed. Feels better. Tolerating feeds. 2. Recent bilateral frontal/parietal CVA's, anticoagulation. . 3. Aspiration pneumonia developing in hospital, reason for PEG placement. Transitioned to liquid antibiotics that can be given by G-tube. 4. Atrial fibrillation, paroxysmal, post procedure anticoagulation re-started. 5. Hypertension, treated adequately. 6. Supratherapeutic INR on warfarin, has been switched to Apixaban. 7. Polymyalgia rheumatica, on chronic prednisone 5 mg at bedtime 8. BPH 9. Type 2 diabetes, A1c 8.0. On sliding scale insulin with G-tube feeds. 10. Hypotension, follow clinically, has treatment for HTN. BP in good range now. 11. Chronic diastolic heart failure 12.? Chronic hoarseness, needs vocal cords evaluated. Discomfort in throat has stopped since G-Tube placed, likely secondary to acid reflux, including the s. Time Spent With Patient Critical Care time: I spent a total of [] minutes of critical care time on this patient's care today; this time is exclusive of procedural time. Quality VTE Deep Vein Thrombosis/Pulmonary Embolism Present on Admission: No
[2021-10-09 05:00] VITALS: BP 137/81; PULSE 88; RESP 19; TEMP 36.2; O2SAT 97
[2021-10-09] MEDS: METOCLOPRAMIDE 10 MG/2 ML INJ IV (05:48)
[2021-10-09 07:47] VITALS: O2SAT 96
[2021-10-09] MEDS: BUDESONIDE 0.5 MG/2 ML NEB INH (07:47)
[2021-10-09] MEDS: ALBUTEROL 2.5 MG/3 ML NEB (ADULT) INH (07:47)
[2021-10-09 08:30] VITALS: BP 109/60; PULSE 96; RESP 22; TEMP 35.8; O2SAT 96
--- NOTE | 2021-10-09 08:49 | SLP.IPNOTE ---
Pt was sleeping with at bedside when ASSOCIATE PROGRAMMER arrived. Pt's reported he did not sleep well last night due to discomfort from feeding tube and pain from his polymyalgia rheumatica. She added he did not get a full tube feed last night due to discomfort, but was given medication for gas to help ease discomfort from feedings. reported pt will not be interested in doing any exercises today due to low energy and pain.
[2021-10-09 08:59] VITALS: BP 109/60; PULSE 96
[2021-10-09] MEDS: METOPROLOL ER 50 MG TABLET 100 MG PO (08:59)
[2021-10-09] MEDS: APIXABAN 5 MG TABLET PO (09:00)
[2021-10-09] MEDS: AMOX/CLAV 400 MG/5ML SUSP 800 MG TUBE (09:01)
[2021-10-09 10:48] LABS: COVID19 -Nasal RAPID Negative (Negative)
[2021-10-09 11:11] VITALS: BP 105/54; PULSE 75
--- NOTE | 2021-10-09 11:13 | OT.IPNOTE ---
Pt being discharge to SNF today and went to wish the pt and his well, no charge.
--- NOTE | 2021-10-09 11:26 | PT-IP ANOTE ---
Attempted to see pt at 11:24, pt refused therapy stating he would like to rest prior to upcoming d/c to SNF.
[2021-10-09 12:00] VITALS: BP 126/75; PULSE 98; RESP 22; TEMP 36.8; O2SAT 94
[2021-10-09] MEDS: HYDROCODONE/ACET 5/325 TABLET 1 TAB PO (13:01)
--- NOTE | 2021-10-09 13:42 | P.DS_ITS ---
History of Present Illness History of Present Illness Date Patient Seen: 10/09/21 Chief complaint: can't swallow, dehydrated, had a stroke end of Aug Narrative: 86-year-old male with recent bilateral strokes, atrial fibrillation, normal LVEF, new diagnosis diabetes admitted due to progressive dysphagia. Discharge Providers Provider Date of admission: 09/25/21 19:39 Discharge Date: 10/09/21 Primary care physician: Michelet Irby MD Consults: 09/25/21 20:57 Consult to Discharge Planning Routine Comment: requesting nursing home. 09/25/21 21:00 [place] [facility] Routine Comment: Needs new POLST completed, current one inconsisten Consult to Physician Routine Comment: Consulting Provider: Kirit Khan Reason for consultation: S/P CVA 5/7, throat pain, worsening aspiration, prev seen Dr. Lew Has provider been notified: No Consult to Speech Therapy Evaluate & Treat Comment: S/P CVA 5/7, throat pain and worsening aspiration Physician Instructions: Evaluate and treat 09/26/21 15:56 Consult to General Surgery Routine Comment: Consulting Provider: Bry Shelton Reason for consultation: PEG TUBE PLACEMENT; ? EGD PREVIOUSLY PLANNED BY DR JARRELL PER FAMILY Has provider been notified: No 10/01/21 10:12 Consult to Occupational Therapy Evaluate & Treat Comment: Physician Instructions: Evaluate and treat Consult to Physical Therapy Evaluate & Treat Comment: Physician Instructions: Evaluate and Treat 10/04/21 10:42 Consult to Physician Routine Comment: Consulting Provider: Yoly Serrano Reason for consultation: PEG Has provider been notified: Yes 10/06/21 17:05 Consult to Dietitian, Adult Routine Comment: TO START IN AM 6/ Reason For Exam: ASSESS FOR TUBE FEEDINGS Discharge provider: Niurka Elias MD Summary Hospital Course Discharge Diagnosis: Dysphagia, post CVA Hospital Course: Patient was at a point where he will need a PEG due to progressive dysphagia from recent strokes.? If anything swallowing problem was worsening over the week during the initial hospital stay. Dr. Serrano performed placement of PEG on October 06, 2021. Associated with this was throat pain and laryngitis for which an ENT consult should be done after discharge. Last Eliquis dose was 520 pm.? This was restarted after procedure. Eliquis instead of warfarin used since strokes occurred on warfarin. Patient provided IV antibiotics for aspiration/hospital acquired pneumonia, on Vancomycin and Zosyn since October 02, azithromycin added October 03 to treat MRSA, g negatives and also atypicals.?Post peg placement this was transitioned to liquid Amox/Clav given by PEG. Patient require holding of some BP meds for part of stay due to hypotension. Only medication affecting BP on discharge is metoprolol. Hydrocortisone 50 mg IV HS while patient NPO and unable to take his prednisone Maintenance IV fluids while NPO Prior to PEG placement patient require IV fluids. Insulin sliding scale, nutrition consult done after PEG placement with patient discharged on SSI. Status at Discharge Cognitive/behavioral status at discharge: at baseline, confused Exam Vital Signs (past 8 hours): - 10/09/21 07:47 10/09/21 08:30 10/09/21 08:59 Temperature 96.4 F L Pulse Rate 96 H 96 H Respiratory Rate 22 Blood Pressure 109/60 109/60 Pulse Oximetry 96 96 10/09/21 11:11 10/09/21 12:00 Temperature 98.3 F Pulse Rate 75 98 H Respiratory Rate 22 Blood Pressure 105/54 L 126/75 Pulse Oximetry 94 Fraction of Inspired Oxygen 21 Oxygen Delivery Method Room Air Oxygen Flow Rate 0 Narrative Exam Narrative: General:? He is some lethargy but alert. In no acute distress. Lungs:? Clear to auscultation Heart:? Irregularly irregular Abdomen:? Soft. PEG present. Extremities: No edema Neurological:? Normal affect, not appearing confused Objective Labs Result Diagrams: 10/07/21 04:53 10/07/21 04:53 Labs: Laboratory Results - last 24 hr 10/09/21 10:24 SARS-CoV-2 (PCR) Negative [facility] Medical History Age related cataract Ankle pain Anticoagulation goal of INR 2 to 3 Atrial fibrillation Atrial fibrillation Benign prostatic hyperplasia Chicken pox Cholelithiasis Chronic anticoagulation Chronic back pain COPD (chronic obstructive pulmonary disease) Gout Hearing loss Hemorrhoid History of gastric ulcer History of tobacco use Hyperlipidemia Hypertension Measles Mumps Obesity Osteoarthritis Pericarditis 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 Tinnitus Surgical History Anesthesia History of ankle surgery (~1965) History of appendectomy (~2018) History of cataract removal with insertion of prosthetic lens History of laparotomy (~1999) History of tonsillectomy (~1944) Family History Mother Hypertension Heart disease Diabetes mellitus Hyperlipidemia Father Hypertension Hyperlipidemia Grandmother Pneumonia Social History marital status: household members: spouse occupational status: previously employed Smoking Status: Former smoker alcohol intake: former substance use type: does not use Discharge Assessment & Plan Assessment and Plan Assessment: Post CVA, dysphagia requiring PEG. Plan of Treatment: Discharge to SNF. Discharge Plan Discharge Plan Patient Disposition: SNF Transfer to: [facility] Provider Discharge Comment: All medication orders as oral should be given per G- tube. Please crush as needed. Discharge orders & Medications Prescriptions: New Eliquis 5 mg Tablet 5 mg PO BID 30 Days Qty: 60 0RF hydrocodone-acetaminophen 5-325 mg Tablet 1 tab PO Q6HR PRN (Reason: Pain, Moderate (4-6)) 30 Days Qty: 90 0RF amoxicillin-pot clavulanate 400-57 mg/5 mL Suspension For Reconstitution 800 mg TUBE BID Qty: 100 0RF budesonide [Pulmicort] 0.5 mg/2 mL Suspension For Nebulization 0.5 mg inhalation RTBID Qty: 10 0RF insulin lispro [Humalog U-100 Insulin] 100 unit/mL Solution 0 unit SUBCUT Q4H Qty: 3 0RF metoprolol succinate 50 mg Tablet Extended Release 24 Hr 100 mg PO DAILY 30 Days Qty: 30 0RF metoclopramide HCl 10 mg Tablet 10 mg PO Q6HR PRN (Reason: Nausea And Vomiting by G tube) Qty: 90 0RF Continued finasteride 5 mg tablet 5 mg PO DAILY Qty: 90 3RF allopurinol 300 mg tablet 300 mg PO DAILY Qty: 90 4RF lovastatin 40 mg tablet 40 mg PO QPM Qty: 90 4RF metoprolol succinate 100 mg tablet extended release 24 hr 100 mg PO DAILY Qty: 90 4RF tamsulosin [Flomax] 0.4 mg capsule 0.8 mg PO QPM Qty: 180 4RF budesonide-formoterol [Symbicort] 80-4.5 mcg/actuation HFA aerosol inhaler 2 puff inhalation BID Qty: 3 3RF hydrocodone-acetaminophen 5-300 mg tablet 1 tab PO Q4-6H PRN (Reason: pain) Qty: 30 0RF clotrimazole 10 mg yuliya 10 mg mucous membrane 5XD Qty: 35 0RF furosemide 20 mg tablet 20 mg PO DAILY 0RF methotrexate sodium (PF) 25 mg/mL solution 1 ml IM QWEEK 0RF Label Comments: tuesday Rx Instructions: pt says he just hasn't taken it in a while multivitamin [One Daily Multivitamin] Tablet 1 tab PO DAILY 0RF ascorbic acid (vitamin C) 500 mg Tablet 500 mg PO BID 0RF gabapentin 100 mg capsule 100 mg PO TID 0RF prednisone 5 mg tablet 5 mg PO BEDTIME 0RF Eliquis 5 mg tablet 5 mg PO BID Qty: 180 0RF famotidine [Pepcid] 40 mg tablet 40 mg PO BEDTIME Qty: 90 1RF lidocaine HCl [Lidocaine Viscous] 2 % solution See Rx Instructions mucous membrane BID Qty: 100 0RF Rx Instructions: 2.5 cc taken orally, thickened, every 2 hours as needed for throat pain. albuterol sulfate 90 mcg/actuation HFA aerosol inhaler 2 puff INHALATION Q4H PRN (Reason: shortness of breath or wheezing) 0RF amlodipine 10 mg tablet 10 mg PO DAILY 0RF spironolactone 25 mg tablet 25 mg PO DAILY 0RF magnesium chloride 64 mg magnesium tablet 64 mg PO DAILY 0RF losartan 100 mg tablet 100 mg PO DAILY 0RF acetaminophen [Tylenol Extra Strength] 500 mg tablet 1,000 mg PO TID PRN (Reason: Pain (Scale Score 1-3)) 0RF torsemide 20 mg tablet 20 mg PO DAILY Qty: 90 3RF Follow up/Referrals: Michelet Irby MD [Primary Care Provider] - Discharge Health Status Health Concerns: Needs followup consult organized with Neurology and ENT. Also needs the ability to do self suction by patient. He is very capable of doing this as needed for oropharyngeal mucous. Diet/Activity/Treatments Diet: Nothing by Mouth Diet comment: Feeding is G-tube. Currently the feeds are every 2h and FSBS q4h with SSI. Visit Report/Discharge Packet Instructions: How to Care for Your PEG Tube Discharge Data Primary Care Provider: Michelet Irby Quality VTE Deep Vein Thrombosis/Pulmonary Embolism Present on Admission: No
--- NOTE | 2021-10-10 14:18 | CM.DPNOTE ---
DC Note Late Entry This CUSTOMER SERVICE TELLER coordinated DC to [facility] yesterday 6.3. Patient and spouse agreeable to plan; BLS arranged for p/u at approx 1400- RN and patient/spouse updated Faxed [facility], completed and signed med list, Rx, POLST updated to reflect DNR/Limited Interventions Plan: DC yesterday to [facility], peg tube running for feeding, quintero cath left in place JW
== END 2021-10-09 14:43 | DRG 177 ==
LOC: ED 14:35 → AC 19:48
PROVIDERS: Family Medicine; Hospitalist; Internal Medicine; Neuromusculoskeletal Medicine, Sports Medicine; Student in an Organized Health Care Education/Training Program; Surgery; Admitting Provider Nurse Practitioner Family; Emergency Provider Emergency Medicine; Family Provider Family Medicine; PCP Family Medicine; Referring Provider Emergency Medicine; Visit Provider Nurse Practitioner Family
PROC: 0DH63UZ Insertion of Feeding Device into Stomach, Percutaneous Approach (ICD-10-PCS; CPT 43246; principal; 2021-10-06 11:45)
DX: J69.0 Pneumonitis due to inhalation of food and vomit (principal); J96.21 Acute and chronic respiratory failure with hypoxia; J44.1 Chronic obstructive pulmonary disease with (acute) exacerbation; I50.32 Chronic diastolic (congestive) heart failure; D68.9 Coagulation defect, unspecified; I69.891 Dysphagia following other cerebrovascular disease; I69.920 Aphasia following unspecified cerebrovascular disease; E86.9 Volume depletion, unspecified; I48.0 Paroxysmal atrial fibrillation; R13.10 Dysphagia, unspecified; R29.6 Repeated falls; M35.3 Polymyalgia rheumatica; I11.0 Hypertensive heart disease with heart failure; N40.0 Benign prostatic hyperplasia without lower urinary tract symptoms; E11.9 Type 2 diabetes mellitus without complications; I95.9 Hypotension, unspecified; E78.5 Hyperlipidemia, unspecified; Z79.01 Long term (current) use of anticoagulants; Z87.891 Personal history of nicotine dependence; Z20.822 Contact with and (suspected) exposure to COVID-19
CPT/HCPCS: 36415; 36430; 49440; 70450; 71045; 80048; 80053; 80069; 80076; 80162; 80202; 81001; 82550; 82962; 83036; 83605; 83690; 83735; 83880; 84100; 84145; 84443; 84484; 85007; 85025; 85610; 86140; 86900; 86901; 86927; 87040; 87070; 87205; 87635; 92526; 92610; 93005; 93010; 94640; 94667; 94668; 94760; 94762; 96365; 96375; 97110; 97162; 97166; 97530; 97535; 99233; 99284; 99285; C9803; P9016; C9113; J0330; J1100; J1160; J1650; J1720; J1815; J1885; J1940; J1956; J2270; J2405; J2543; J2704; J2765; J2920; J3010; J3430; J7050; J7613; J9250

== ENCOUNTER → 2021-10-10 13:40 | Outpatient (ROUT) | payer MEDICARE, SELFPAY ==
[2021-09-25 20:17] VITALS: BMI 27.5
[2021-10-10 14:41] LABS: Appearance Urine UA CLEAR; Bilirubin Urine UA NEGATIVE (NEGATIVE); Color Urine UA YELLOW; Glucose Urine UA NEGATIVE (Negative); Ketones Urine UA NEGATIVE (NEGATIVE); Leukocyte Esterase Urine UA NEGATIVE (NEGATIVE); Nitrite Urine UA NEGATIVE (Negative); Occult Blood Urine UA NEGATIVE (Negative); Protein Urine UA NEGATIVE (Negative); Urobilinogen Urine UA 0.2 E.U./dL (0.2)
[2021-10-10 14:57] LABS: Bacteria Urine None Seen; Culture Indicated Urine Cult Not Indicated; RBC Urine None Seen (0-5/HPF); Squamous Epithelial Cell Urine None Seen (0-5/HPF); WBC Urine None Seen (0-5/HPF)
== END ==
PROVIDERS: Family Provider Family Medicine; PCP Family Medicine; Visit Provider Emergency Medicine
DX: N39.0 Urinary tract infection, site not specified (principal)
CPT/HCPCS: 81001

== ENCOUNTER → 2022-02-02 11:31 | Outpatient (CLI) | payer MEDICARE, SELFPAY ==
[2021-09-25 20:17] VITALS: BMI 27.5
[2022-02-02 20:01] LABS: Add Manual Diff / Slide Review NO; Basophils Absolute Auto 100 /uL (0-100); Basophils Percent Auto 0.8 % (0-2); Eosinophils Absolute Auto 100 /uL (0-450); Eosinophils Percent Auto 1.1 % (2-4); Hematocrit 41.1 % (41-53); Hemoglobin 13.6 g/dL (13.5-17.5); Lymphocytes Absolute Auto 1000 /uL (1100-4500); Lymphocytes Percent Auto 11.4 % (25-40); Mean Corpuscular Volume 102.9 fL (80-100); Monocytes Absolute Auto 400 /uL (0-900); Monocytes Percent Auto 5.2 % (3-14); Neutrophils Absolute Auto 6800 /uL (1500-7000); Neutrophils Percent Auto 81.5 % (50-75); Platelet Count 210 X10^3/uL (150-400); Red Blood Cell Count 3.99 X10^6/uL (4.5-5.9); Red Cell Distribution Width 17.2 % (11.6-14.8); White Blood Cell Count 8.4 X10^3/uL (4.5-11.0)
[2022-02-02 20:06] LABS: Hemoglobin A1C% w Est Avg Glu 5.9 % (4.0-6.0)
[2022-02-02 20:08] LABS: Alanine Aminotransferase 20 IU/L (<50); Albumin 3.8 g/dL (3.5-5.0); Albumin Globulin Ratio 1.7 (1.0-2.8); Alkaline Phosphatase 36 U/L (38-126); Aspartate Aminotransferase 23 IU/L (17-59); BUN Creatinine Ratio 24.4 (6-22); Bilirubin Total 1.5 mg/dL (0.2-1.3); Blood Urea Nitrogen 19 mg/dL (9-20); Calcium 9.1 mg/dL (8.4-10.2); Carbon Dioxide 22 mmol/L (22-32); Chloride 106 mmol/L (98-107); Cholesterol 125 mg/dL (140-199); Estimated Glomerular Filt Rate > 60 mL/min (>60); Globulin 2.2 g/dL (1.7-4.1); Glucose 104 mg/dL (80-110); HDL Cholesterol 46 mg/dL (40-60); HEMOLYSIS < 15 (0-50); LDL Cholesterol Calculated 55 mg/dL (<100); Potassium 4.5 mmol/L (3.4-5.1); Sodium 137 mmol/L (137-145); Triglycerides 122 mg/dL (35-150)
[2022-02-02 20:15] LABS: NT-proBNP (BNP-Adult 18+) 2380 pg/mL (<450)
[2022-02-02 20:36] LABS: INR 1.9 (0.9-1.3); Prothrombin Time 22.5 SECONDS (10.1-12.7)
== END ==
PROVIDERS: Family Provider Family Medicine; PCP Family Medicine; Visit Provider Family Medicine
DX: D64.9 Anemia, unspecified (principal); E11.9 Type 2 diabetes mellitus without complications; E78.2 Mixed hyperlipidemia; E79.0 Hyperuricemia without signs of inflammatory arthritis and tophaceous disease; E87.1 Hypo-osmolality and hyponatremia; I10 Essential (primary) hypertension; I25.10 Atherosclerotic heart disease of native coronary artery without angina pectoris; I25.2 Old myocardial infarction; I50.22 Chronic systolic (congestive) heart failure; M35.3 Polymyalgia rheumatica; Z86.73 Personal history of transient ischemic attack (TIA), and cerebral infarction without residual deficits; Z93.1 Gastrostomy status; I48.0 Paroxysmal atrial fibrillation; I63.9 Cerebral infarction, unspecified; J81.1 Chronic pulmonary edema; Z79.01 Long term (current) use of anticoagulants
CPT/HCPCS: 80053; 80061; 83036; 83880; 85025; 85610

== ENCOUNTER → 2022-05-25 11:33 | Outpatient (CLI) | payer MEDICARE, SELFPAY ==
[2021-09-25 20:17] VITALS: BMI 27.5
[2022-05-25 20:38] LABS: Add Manual Diff / Slide Review NO; Basophils Absolute Auto 100 /uL (0-100); Basophils Percent Auto 0.6 % (0-2); Eosinophils Absolute Auto 100 /uL (0-450); Eosinophils Percent Auto 1.1 % (2-4); Hematocrit 41.3 % (41-53); Hemoglobin 13.6 g/dL (13.5-17.5); Lymphocytes Absolute Auto 1200 /uL (1100-4500); Lymphocytes Percent Auto 14.4 % (25-40); Mean Corpuscular Hemoglobin 35.8 PG (26-34); Mean Corpuscular Volume 108.4 fL (80-100); Monocytes Absolute Auto 500 /uL (0-900); Monocytes Percent Auto 5.9 % (3-14); Neutrophils Absolute Auto 6700 /uL (1500-7000); Platelet Count 164 X10^3/uL (150-400); Red Blood Cell Count 3.81 X10^6/uL (4.5-5.9); Red Cell Distribution Width 16.1 % (11.6-14.8); White Blood Cell Count 8.5 X10^3/uL (4.5-11.0)
[2022-05-25 22:12] LABS: Cholesterol 122 mg/dL (140-199); HDL Cholesterol 52 mg/dL (40-60); LDL Cholesterol Calculated 42 mg/dL (<100); Triglycerides 138 mg/dL (35-150)
[2022-05-25 22:14] LABS: Creatinine Urine Random 135.9 mg/dL
[2022-05-25 22:15] LABS: C-Reactive Protein Quant < 0.5 mg/dL (<1.0)
[2022-05-25 22:19] LABS: Microalbumi Creatinin Ratio Ur 33.1 ug/mg CR (<30); Microalbumin Urine Random 4.5 mg/dL (0-1.6)
[2022-05-25 22:20] LABS: NT-proBNP (BNP-Adult 18+) 1950 pg/mL (<450)
[2022-05-25 23:24] LABS: Alanine Aminotransferase 23 IU/L (<50); Alkaline Phosphatase 37 U/L (38-126); Aspartate Aminotransferase 27 IU/L (17-59); BUN Creatinine Ratio 21.9 (6-22); Bilirubin Total 2.4 mg/dL (0.2-1.3); Blood Urea Nitrogen 23 mg/dL (9-20); Calcium 9.5 mg/dL (8.4-10.2); Carbon Dioxide 22 mmol/L (22-32); Chloride 100 mmol/L (98-107); Estimated Glomerular Filt Rate > 60 mL/min (>60); Glucose 106 mg/dL (80-110); Potassium 4.6 mmol/L (3.4-5.1); Sodium 136 mmol/L (137-145); Total Protein 6.1 g/dL (6.3-8.2)
[2022-05-25 23:28] LABS: Hemoglobin A1C% w Est Avg Glu 5.8 % (4.0-6.0)
[2022-05-28 17:49] LABS: Albumin 3.9 g/dL (3.5-5.0); Albumin Globulin Ratio 1.8 (1.0-2.8); Globulin 2.2 g/dL (1.7-4.1); HEMOLYSIS < 15 (0-50)
== END ==
PROVIDERS: Family Provider Family Medicine; PCP Family Medicine; Visit Provider Internal Medicine Cardiovascular Disease
DX: E78.5 Hyperlipidemia, unspecified (principal); R06.09 Other forms of dyspnea; D64.9 Anemia, unspecified; E11.9 Type 2 diabetes mellitus without complications; E78.2 Mixed hyperlipidemia; E87.1 Hypo-osmolality and hyponatremia; I25.10 Atherosclerotic heart disease of native coronary artery without angina pectoris; M05.79 Rheumatoid arthritis with rheumatoid factor of multiple sites without organ or systems involvement; E79.0 Hyperuricemia without signs of inflammatory arthritis and tophaceous disease; I10 Essential (primary) hypertension; I25.2 Old myocardial infarction; I50.22 Chronic systolic (congestive) heart failure; M35.3 Polymyalgia rheumatica; Z86.73 Personal history of transient ischemic attack (TIA), and cerebral infarction without residual deficits; Z93.1 Gastrostomy status
CPT/HCPCS: 80053; 80061; 82043; 82570; 83036; 83880; 85025; 86140

== ENCOUNTER → 2022-07-16 12:23 | Outpatient (CLI) | payer MEDICARE, SELFPAY ==
[2021-09-25 20:17] VITALS: BMI 27.5
--- NOTE | 2022-07-16 12:24 | DI.US.S_ITS ---
LIMITED ULTRASOUND OF LEFT BREAST AND AXILLA: 07/16/2022 CLINICAL: Mass of left breast. Comparison is made to exam dated: 07/16/2022 mammogram - [facility]. Color flow ultrasound of the left breast axilla was performed on the areas of interest. Corado scale images of the real-time examination were reviewed. There is gynecomastia in the left breast that correlates with palpable area. IMPRESSION: BENIGN There is no sonographic evidence of malignancy. This exam was interpreted at Station ID: [id number]. Electronically Signed By: Dawn Hill M.D. lk/:07/16/2022 14:55:41 letter sent: Clinical Evaluation Ultrasound BI-RADS: 2 Benign
--- NOTE | 2022-07-16 12:24 | DI.MG.S_ITS ---
MALE BILATERAL DIGITAL DIAGNOSTIC MAMMOGRAM 3D/2D: 07/16/2022 CLINICAL: Left breast pain/lump behind nipple x's 2-3 months. No prior exams were available for comparison. There is gynecomastia in both breasts, more pronounced on the left. This likely corresponds with the palpable left breast mass. No significant masses, calcifications, or other findings are seen in either breast. IMPRESSION: INCOMPLETE: NEEDS ADDITIONAL IMAGING EVALUATION Bilateral gynecomastia. Ultrasound of the left breast is recommended to evaluate the left palpable lump and will be performed immediately after this exam. This exam was interpreted at Station ID: [id number]. NOTE: For mammograms, a report in lay terms will be sent to the patient. Approximately 15% of breast malignancies will not be visualized mammographically. In the management of a palpable breast mass, a negative mammogram must not discourage biopsy of a clinically suspicious lesion. Electronically Signed By: Dawn Hill M.D. lk/:07/16/2022 14:00:10 ACR BI-RADS Category 0: Incomplete [id number]
--- NOTE | 2022-07-16 14:51 | DI.DEXA.S_ITS ---
Indication: screening for osteoporosis; Referring Provider: OG GARCIA Study: Bone densitometry was performed. Exam Date: July 16, 2022 Accession number: [id number] Bone Density: Region BMD T-score Z-score Classification AP Spine(L1-L4) 1.142 0.9 1.8 Normal Femoral Neck (Left) 0.551 -2.7 -1.1 Osteoporosis Total Hip (Left) 0.849 -0.8 0.0 Normal Femoral Neck (Right) 0.622 -2.0 -0.6 Osteopenia Total Hip (Right) 0.893 -0.4 0.3 Normal Total Hip Mean 0.871 -0.6 0.2 Normal World Health Organization criteria for BMD impression classify patients as: Normal (T-score at or above -1.0), Osteopenia (T-score between -1.0 and -2.5), or Osteoporosis (T-score at or below -2.5). 10-year Fracture Risk: FRAX not reported because: Some T-score for Spine Total or Hip Total or Femoral Neck at or below -2.5 Impression: The patient has osteoporosis, based on the Left Femoral Neck T-score. Discussion: INCREASED RISK OF FRACTURE. BONE DENSITY IS UNDESIRABLY LOW AT ONE OR MORE SKELETAL SITES, CONSISTENT WITH OSTEOPOROSIS. This patient's lowest T-score meets the World Health Organization's (WHO) criteria for osteoporosis at one or more sites (T-score -2.5 or below). In untreated patients, the risk of osteoporotic fracture increases approximately two-fold for each 1.0 SD decrease in T-score. Low bone density is not the only risk factor for fracture; also consider factors such as patient's age, frailty or poor health, risk of falling, risk of injury, previous osteoporotic fracture, family history of osteoporosis, cigarette smoking, low body weight, etc. Not everyone with low bone mineral density has osteoporosis; osteomalacia and other metabolic bone disorders should also be considered. Patients who have osteoporosis should be evaluated for specific diseases and conditions (secondary causes) that may cause or contribute to bone loss. The National Osteoporosis Foundation (NOF) recommends pharmacologic intervention for men with BMD at this level (a T-score of -2.5 or below). The patient should follow a healthful lifestyle (good nutrition with adequate calcium and vitamin D, and appropriate weight-bearing exercise). Follow-Up: Consider repeating this study in 2 years to reassess this patient's status, or sooner if there is some new clinical indication. Reported by: Jalen Carrillo M.D. on 07/16/2022 3:05:00 PM.
== END ==
PROVIDERS: Family Provider Family Medicine; PCP Family Medicine; Referring Provider Internal Medicine Rheumatology; Visit Provider Internal Medicine Rheumatology
DX: R92.8 Other abnormal and inconclusive findings on diagnostic imaging of breast (principal); N62 Hypertrophy of breast; Z13.820 Encounter for screening for osteoporosis; M81.0 Age-related osteoporosis without current pathological fracture
CPT/HCPCS: 76642; 77066; 77080; G0279

== ENCOUNTER → 2022-09-30 14:00 | Outpatient (CLI) | payer MEDICARE, SELFPAY ==
[2021-09-25 20:17] VITALS: BMI 27.5
[2022-09-30 19:41] LABS: Add Manual Diff / Slide Review NO; Basophils Absolute Auto 0 /uL (0-100); Basophils Percent Auto 0.4 % (0-2); Eosinophils Absolute Auto 100 /uL (0-450); Eosinophils Percent Auto 0.5 % (2-4); Hematocrit 39.4 % (41-53); Hemoglobin 12.9 g/dL (13.5-17.5); Lymphocytes Absolute Auto 600 /uL (1100-4500); Lymphocytes Percent Auto 5.3 % (25-40); Mean Corpuscular HGB Conc 32.6 % (30-36); Mean Corpuscular Volume 107.2 fL (80-100); Monocytes Absolute Auto 500 /uL (0-900); Monocytes Percent Auto 4.2 % (3-14); Neutrophils Absolute Auto 10600 /uL (1500-7000); Neutrophils Percent Auto 89.6 % (50-75); Platelet Count 223 X10^3/uL (150-400); Red Blood Cell Count 3.68 X10^6/uL (4.5-5.9); Red Cell Distribution Width 16.4 % (11.6-14.8); White Blood Cell Count 11.8 X10^3/uL (4.5-11.0)
[2022-09-30 19:43] LABS: Alanine Aminotransferase 21 IU/L (<50); Albumin 3.9 g/dL (3.5-5.0); Albumin Globulin Ratio 1.9 (1.0-2.8); Alkaline Phosphatase 34 U/L (38-126); Aspartate Aminotransferase 22 IU/L (17-59); BUN Creatinine Ratio 24.6 (6-22); Bilirubin Total 0.9 mg/dL (0.2-1.3); Blood Urea Nitrogen 29 mg/dL (9-20); Calcium 9.1 mg/dL (8.4-10.2); Carbon Dioxide 27 mmol/L (22-32); Chloride 100 mmol/L (98-107); Estimated Glomerular Filt Rate > 60 mL/min (>60); Globulin 2.1 g/dL (1.7-4.1); Glucose 141 mg/dL (80-110); HEMOLYSIS < 15 (0-50); Potassium 4.7 mmol/L (3.4-5.1); Sodium 137 mmol/L (137-145); Uric Acid 3.7 mg/dL (3.5-8.5)
[2022-09-30 19:45] LABS: NT-proBNP (BNP-Adult 18+) 2750 pg/mL (<450)
[2022-09-30 20:00] LABS: TSH w/ Reflex to FT4 1.38 uIU/mL (0.47-4.68)
[2022-09-30 20:26] LABS: Vitamin B12 445 pg/mL (239-931)
[2022-10-01 22:38] LABS: x Labcorp Estim. Avg Glu (eAG) 126 mg/dL (.)
== END ==
PROVIDERS: Family Provider Family Medicine; PCP Family Medicine; Visit Provider Family Medicine
DX: E11.9 Type 2 diabetes mellitus without complications (principal); D64.9 Anemia, unspecified; E87.1 Hypo-osmolality and hyponatremia; I10 Essential (primary) hypertension; I50.9 Heart failure, unspecified; R60.0 Localized edema; M10.9 Gout, unspecified
CPT/HCPCS: 80053; 82607; 83036; 83880; 84443; 84550; 85025

== ENCOUNTER → 2022-11-03 13:00 | Outpatient (CLI) | payer MEDICARE, SELFPAY ==
[2021-09-25 20:17] VITALS: BMI 27.5
[2022-11-03 20:22] LABS: Add Manual Diff / Slide Review NO; Basophils Absolute Auto 100 /uL (0-100); Basophils Percent Auto 0.6 % (0-2); Eosinophils Absolute Auto 200 /uL (0-450); Eosinophils Percent Auto 1.6 % (2-4); Hematocrit 39.8 % (41-53); Hemoglobin 13.3 g/dL (13.5-17.5); Lymphocytes Absolute Auto 900 /uL (1100-4500); Lymphocytes Percent Auto 9.1 % (25-40); Mean Corpuscular HGB Conc 33.3 % (30-36); Mean Corpuscular Hemoglobin 35.7 PG (26-34); Monocytes Absolute Auto 800 /uL (0-900); Neutrophils Absolute Auto 8200 /uL (1500-7000); Neutrophils Percent Auto 80.7 % (50-75); Platelet Count 212 X10^3/uL (150-400); Red Blood Cell Count 3.72 X10^6/uL (4.5-5.9); Red Cell Distribution Width 16.2 % (11.6-14.8); White Blood Cell Count 10.1 X10^3/uL (4.5-11.0)
== END ==
PROVIDERS: Family Provider Family Medicine; PCP Family Medicine; Visit Provider Family Medicine
DX: D64.9 Anemia, unspecified (principal)
CPT/HCPCS: 85025

== ENCOUNTER → 2022-11-22 14:00 | Outpatient (CLI) | payer MEDICARE, SELFPAY ==
[2021-09-25 20:17] VITALS: BMI 27.5
[2022-11-22 19:45] LABS: Add Manual Diff / Slide Review NO; Basophils Absolute Auto 0 /uL (0-100); Basophils Percent Auto 0.3 % (0-2); Eosinophils Absolute Auto 0 /uL (0-450); Eosinophils Percent Auto 0.3 % (2-4); Hematocrit 40.3 % (41-53); Hemoglobin 13.6 g/dL (13.5-17.5); Lymphocytes Absolute Auto 700 /uL (1100-4500); Lymphocytes Percent Auto 5.5 % (25-40); Mean Corpuscular HGB Conc 33.8 % (30-36); Mean Corpuscular Hemoglobin 35.8 PG (26-34); Monocytes Absolute Auto 800 /uL (0-900); Monocytes Percent Auto 5.8 % (3-14); Neutrophils Absolute Auto 11500 /uL (1500-7000); Neutrophils Percent Auto 88.1 % (50-75); Platelet Count 211 X10^3/uL (150-400); Red Cell Distribution Width 16.4 % (11.6-14.8)
[2022-11-22 19:51] LABS: Alanine Aminotransferase 27 IU/L (<50); Albumin 4.1 g/dL (3.5-5.0); Albumin Globulin Ratio 1.9 (1.0-2.8); Alkaline Phosphatase 37 U/L (38-126); Aspartate Aminotransferase 29 IU/L (17-59); BUN Creatinine Ratio 25.7 (6-22); Bilirubin Total 1.6 mg/dL (0.2-1.3); Blood Urea Nitrogen 35 mg/dL (9-20); C-Reactive Protein Quant 0.6 mg/dL (<1.0); Calcium 9.5 mg/dL (8.4-10.2); Carbon Dioxide 25 mmol/L (22-32); Chloride 99 mmol/L (98-107); Estimated Glomerular Filt Rate 51 mL/min (>60); Globulin 2.2 g/dL (1.7-4.1); Glucose 110 mg/dL (80-110); HEMOLYSIS 20 (0-50); Sodium 133 mmol/L (137-145); Total Protein 6.3 g/dL (6.3-8.2)
[2022-11-22 20:36] LABS: Erythrocyte Sedimentation Rate 3 MM/HR (0-15)
== END ==
PROVIDERS: Family Provider Family Medicine; PCP Family Medicine; Visit Provider Internal Medicine Rheumatology
DX: M05.79 Rheumatoid arthritis with rheumatoid factor of multiple sites without organ or systems involvement (principal)
CPT/HCPCS: 80053; 85025; 85651; 86140

== ENCOUNTER 2022-11-23 22:56 | Emergency (ER) | payer MEDICARE, SELFPAY ==
[2021-09-25 20:17] VITALS: BMI 27.5
[2022-11-23 23:13] VITALS: BP 126/64; PULSE 91; O2SAT 99
--- NOTE | 2022-11-23 23:13 | DI.RAD.S_ITS ---
PROCEDURE: XR CHEST 1V INDICATIONS: Shortness of breath TECHNIQUE: One view of the chest was acquired. COMPARISON: [facility], CR, XR CHEST 1V, 10/02/2021, 12:32. [facility], CR, XR CHEST 2V, 11/23/2022, 14:47. FINDINGS: Surgical changes and devices: None. Lungs and pleura: There is elevation of the left hemidiaphragm redemonstrated. A few linear left basilar opacities are redemonstrated consistent with atelectasis or scarring. Mild blunting of the left costophrenic angle also appears similar to the prior studies suggestive of pleural thickening, and less likely a small chronic left pleural effusion. Mediastinum: Mediastinal contours appear unchanged. Heart size appears enlarged. Bones and chest wall: No suspicious bony lesions. Overlying soft tissues appear unremarkable. IMPRESSION: 1. Persistent blunting of the left costophrenic angle with probable left basilar atelectasis and left pleural thickening. Dictated by: Jose Armando Santillan M.D. on 11/24/2022 at 0:46 Approved by: Jose Armando Santillan M.D. on 11/24/2022 at 0:47
[2022-11-23 23:21] VITALS: BP 126/64; PULSE 93; RESP 20; TEMP 36; O2SAT 99; BMI 25.8
[2022-11-23 23:26] LABS: Add Manual Diff / Slide Review NO; Basophils Absolute Auto 0 /uL (0-100); Basophils Percent Auto 0.1 % (0-2); Eosinophils Absolute Auto 100 /uL (0-450); Eosinophils Percent Auto 0.6 % (2-4); Hemoglobin 13.9 g/dL (13.5-17.5); Lymphocytes Absolute Auto 1000 /uL (1100-4500); Mean Corpuscular HGB Conc 33.1 % (30-36); Mean Corpuscular Hemoglobin 35.2 PG (26-34); Mean Corpuscular Volume 106.1 fL (80-100); Monocytes Absolute Auto 700 /uL (0-900); Monocytes Percent Auto 7.4 % (3-14); Neutrophils Absolute Auto 7900 /uL (1500-7000); Neutrophils Percent Auto 81.9 % (50-75); Platelet Count 202 X10^3/uL (150-400); Red Blood Cell Count 3.96 X10^6/uL (4.5-5.9); Red Cell Distribution Width 16.5 % (11.6-14.8); White Blood Cell Count 9.7 X10^3/uL (4.5-11.0)
[2022-11-23 23:33] LABS: INR 1.4 (0.9-1.3); Prothrombin Time 16.6 SECONDS (10.1-12.7)
[2022-11-23 23:35] LABS: PTT Partial Thromboplastin Tim 31 SECONDS (26-36)
--- NOTE | 2022-11-23 23:37 | ED_ITS ---
HPI - General Adult General Chief complaint: Weakness Stated complaint: heart issues, sent by [facility] Time Seen by Provider: 11/23/22 23:09 Source: patient and family Mode of arrival: Ambulatory History of Present Illness HPI narrative: Patient is an 87-year-old male. He was sent to the emergency department for evaluation of symptoms that have been going on for the past several weeks. He states that he has noticed some decrease in exercise tolerance specifically with physical therapy over the past couple weeks. He is not having any chest pain. He does have shortness of breath with exertion. He also thinks that he potentially had a ?mini-stroke? about 1 week ago when he had 3 minutes of issues with swallowing. That has completely resolved. He does not have any neurologic complaints today. He is a known history of coronary artery disease. Has had a stroke in the past. Has a history of heart failure. Is on Lasix. Also has a history of atrial fibrillation that is rate controlled. He is on anticoagulation for this. Related Data Home Medications Medication Instructions Recorded Confirmed methotrexate sodium (PF) 25 mg/mL 1 ml IM QWEEK 05/04/18 11/23/22 injection solution multivitamin (One Daily 1 tab PO DAILY 05/04/18 11/23/22 Multivitamin tablet) albuterol sulfate 90 mcg/actuation 2 puff inhalation Q4H PRN 11/07/20 11/23/22 aerosol inhaler shortness of breath or wheezing acetaminophen 500 mg tablet 1,000 mg PO TID PRN Pain (Scale 08/25/21 11/23/22 (Tylenol Extra Strength) Score 1-3) furosemide 20 mg tablet 20 mg PO DAILY 10/07/21 11/23/22 prednisone 5 mg tablet 5 mg PO ONCE 02/10/22 11/23/22 Previous Rx's Medication Instructions Recorded metoprolol succinate 100 mg 100 mg PO DAILY #90 tabs 06/03/21 tablet,extended release 24 hr insulin lispro 100 unit/mL 0 unit (0 mL) SUBCUT Q4H #3 mL 10/12/21 subcutaneous solution (Humalog U-100 Insulin) losartan 100 mg tablet 100 mg PO DAILY #90 tabs 01/20/22 spironolactone 25 mg tablet 25 mg PO DAILY #90 tabs 01/20/22 apixaban 5 mg tablet (Eliquis) 5 mg PO BID Atrial fibrillation 02/08/22 CVA #180 tabs famotidine 40 mg tablet (Pepcid) 40 mg PO BEDTIME #90 tabs 02/10/22 ipratropium bromide 42 mcg (0.06 2 spray intranasal TID-QID PRN 03/13/22 %) nasal spray allergy symptoms #45 mL gabapentin 100 mg capsule 100 mg PO TID #270 caps 03/15/22 allopurinol 300 mg tablet 300 mg PO DAILY #90 tabs 07/06/22 lovastatin 40 mg tablet 40 mg PO QPM #90 tabs 08/02/22 tamsulosin 0.4 mg capsule (Flomax) 0.8 mg PO QPM #180 caps 08/02/22 budesonide-formoterol HFA 80 2 puff inhalation BID #3 units 09/13/22 mcg-4.5 mcg/actuation aerosol inhaler (Symbicort) metformin 500 mg tablet 500 mg PO BIDWMEAL #180 tabs 09/13/22 Allergies Allergy/AdvReac Type Severity Reaction Status Date / Time latex [LATEX] Allergy Mild Rash Verified 11/23/22 23:29 Review of Systems Constitutional Constitutional: Reports system reviewed and no additional complaints, except as documented Cardiovascular Cardiovascular: Reports system reviewed and no additional complaints, except as documented Respiratory Respiratory: Reports system reviewed and no additional complaints, except as documented Gastrointestinal Gastrointestinal: Reports system reviewed and no additional complaints, except as documented Integumentary/Breasts Skin/Breast: Reports system reviewed and no additional complaints, except as documented Neurologic Neurologic: Reports system reviewed and no additional complaints, except as documented Hematologic/Lymphatic On Anticoagulants: Yes Patient History Medical History (Updated 11/24/22 @ 03:17 by Bradly Man DO) Age related cataract Ankle pain Anticoagulation goal of INR 2 to 3 Atrial fibrillation Benign prostatic hyperplasia Chicken pox Cholelithiasis Chronic anticoagulation Chronic back pain COPD (chronic obstructive pulmonary disease) Gout Hearing loss Hemorrhoid History of gastric ulcer History of tobacco use Hyperlipidemia Hypertension Measles Mumps Obesity Osteoarthritis Pericarditis Polymyalgia rheumatica Sequela of lacunar infarction Tinnitus Surgical History (Updated 09/16/22 @ 15:57 by Michelet Irby MD) Anesthesia History of ankle surgery (~1965) History of appendectomy (~2018) History of cataract removal with insertion of prosthetic lens History of laparotomy (~1999) History of tonsillectomy (~1944) Family History Mother Hypertension Heart disease Diabetes mellitus Hyperlipidemia Father Hypertension Hyperlipidemia Grandmother Pneumonia Social History marital status: household members: spouse occupational status: previously employed Smoking Status: Former smoker alcohol intake: former substance use type: does not use Smoking Status: Former smoker alcohol intake frequency: holidays/special occasions only Substance Use Type: does not use Exam Initial Vital Signs Initial Vital Signs: Vital Signs Pulse Rate 91 H 11/23/22 23:13 Blood Pressure 126/64 11/23/22 23:13 Pulse Oximetry 99 11/23/22 23:13 Const General: cooperative, comfortable and No ill appearing HENMT Head: normal to inspection and normocephalic Resp Effort & Inspection: normal respiratory effort Auscultation: clear to auscultation bilaterally Cardio Rate: regular rate Rhythm: abnormal rhythm GI Inspection: normal to inspection and non-distended Neuro General: patient alert, patient awake and moves all extremities Speech: speech normal Extrem General: no pedal edema Course Orders Ordered: ED Orders 11/23/22 23:13 XR chest 1V Stat EKG-12 Lead Stat 11/23/22 23:16 Complete Blood Count AUTO DIFF Stat Comprehensive Metabolic Panel Stat Lipase Stat Magnesium Stat NT-proBNP (BNP-Adult 18+) Stat PTT Partial Thromboplastin Sahil Stat Prothrombin Time INR Stat Troponin & CK Cardiac Panel Stat 11/24/22 02:26 Troponin & CK Cardiac Panel Stat Vital Signs Vital signs: Vital Signs - 8 hr 11/23/22 23:21 11/23/22 23:13 11/24/22 00:00 Temperature 96.8 F L Pulse Rate 93 H 91 H 88 Respiratory Rate 20 12 Blood Pressure 126/64 126/64 Pulse Oximetry 99 99 98 Oxygen Delivery Method Room Air 11/24/22 00:30 Temperature Pulse Rate 88 Respiratory Rate 13 Blood Pressure Pulse Oximetry 95 Oxygen Delivery Method Room Air Medical Decision Making Medical Records Medical records reviewed: Yes I reviewed the patient's medical records. Lab Data Lab results reviewed: Yes I reviewed the patient's lab results. 11/23/22 23:16 11/23/22 23:16 Labs: Lab Results 11/23/22 11/23/22 11/23/22 Range/Units 23:16 23:16 23:16 WBC 9.7 (4.5-11.0) X10^3/uL RBC 3.96 L (4.5-5.9) X10^6/uL Hgb 13.9 (13.5-17.5) g/dL Hct 42.0 (41-53) % MCV 106.1 H (80-100) fL MCH 35.2 H (26-34) PG MCHC 33.1 (30-36) % RDW 16.5 H (11.6-14.8) % Plt Count 202 (150-400) X10^3/uL Neut % (Auto) 81.9 H (50-75) % Lymph % (Auto) 10.0 L (25-40) % [place] % (Auto) 7.4 (3-14) % Eos % (Auto) 0.6 L (2-4) % Baso % (Auto) 0.1 (0-2) % Neut # (Auto) 7900 H (8847-1843) /uL Lymph # (Auto) 1000 L (0042-8803) /uL [place] # (Auto) 700 (0-900) /uL Eos # (Auto) 100 (0-450) /uL Baso # (Auto) 0 (0-100) /uL PT 16.6 H (10.1-12.7) SECONDS INR 1.4 H (0.9-1.3) APTT 31 (26-36) SECONDS Sodium 132 L (137-145) mmol/L Potassium 5.5 H (3.4-5.1) mmol/L Chloride 100 (98-107) mmol/L Carbon Dioxide 23 (22-32) mmol/L BUN 39 H (9-20) mg/dL Creatinine 1.36 H (0.66-1.25) mg/dL Estimated GFR 51 L (>60) mL/min BUN/Creatinine Ratio 28.7 H (6-22) Glucose 108 (80-110) mg/dL Calcium 9.7 (8.4-10.2) mg/dL Magnesium 2.1 (1.6-2.3) mg/dL Total Bilirubin 1.3 (0.2-1.3) mg/dL AST 30 (17-59) IU/L ALT 26 (<50) IU/L Alkaline Phosphatase 30 L (38-126) U/L Total Creatine Kinase (55-170) U/L Troponin I (0.01-0.034) ng/mL NT-Pro-B Natriuret Pep (<450) pg/mL Total Protein 6.9 (6.3-8.2) g/dL Albumin 4.5 (3.5-5.0) g/dL Globulin 2.4 (1.7-4.1) g/dL Albumin/Globulin Ratio 1.9 (1.0-2.8) Lipase 84 (23-300) U/L 11/23/22 11/24/22 Range/Units 23:16 02:26 WBC (4.5-11.0) X10^3/uL RBC (4.5-5.9) X10^6/uL Hgb (13.5-17.5) g/dL Hct (41-53) % MCV (80-100) fL MCH (26-34) PG MCHC (30-36) % RDW (11.6-14.8) % Plt Count (150-400) X10^3/uL Neut % (Auto) (50-75) % Lymph % (Auto) (25-40) % [place] % (Auto) (3-14) % Eos % (Auto) (2-4) % Baso % (Auto) (0-2) % Neut # (Auto) (7018-6678) /uL Lymph # (Auto) (8998-6053) /uL [place] # (Auto) (0-900) /uL Eos # (Auto) (0-450) /uL Baso # (Auto) (0-100) /uL PT (10.1-12.7) SECONDS INR (0.9-1.3) APTT (26-36) SECONDS Sodium (137-145) mmol/L Potassium (3.4-5.1) mmol/L Chloride (98-107) mmol/L Carbon Dioxide (22-32) mmol/L BUN (9-20) mg/dL Creatinine (0.66-1.25) mg/dL Estimated GFR (>60) mL/min BUN/Creatinine Ratio (6-22) Glucose (80-110) mg/dL Calcium (8.4-10.2) mg/dL Magnesium (1.6-2.3) mg/dL Total Bilirubin (0.2-1.3) mg/dL AST (17-59) IU/L ALT (<50) IU/L Alkaline Phosphatase (38-126) U/L Total Creatine Kinase 39 L 21 L (55-170) U/L Troponin I < 0.012 < 0.012 (0.01-0.034) ng/mL NT-Pro-B Natriuret Pep 2670 H (<450) pg/mL Total Protein (6.3-8.2) g/dL Albumin (3.5-5.0) g/dL Globulin (1.7-4.1) g/dL Albumin/Globulin Ratio (1.0-2.8) Lipase (23-300) U/L Imaging Data Chest x-ray: Radiologist's Impression: PROCEDURE:? XR CHEST 1V ? INDICATIONS:? Shortness of breath ? TECHNIQUE:? One view of the chest was acquired.? ? COMPARISON:? [facility], CR, XR CHEST 1V, 10/02/2021, 12:32.? [facility], CR, XR CHEST 2V, 11/23/2022, 14:47. ? FINDINGS:? ? Surgical changes and devices:? None.? ? Lungs and pleura:? There is elevation of the left hemidiaphragm redemonstrated.? A few linear left basilar opacities are redemonstrated consistent with atelectasis or scarring. ?Mild blunting of the left costophrenic angle also appears similar to the prior studies suggestive of pleural thickening, and less likely a small chronic left pleural effusion. ? Mediastinum:? Mediastinal contours appear unchanged.? Heart size appears enlarged.? ? Bones and chest wall:? No suspicious bony lesions.? Overlying soft tissues appear unremarkable.? ? IMPRESSION:? ? 1. Persistent blunting of the left costophrenic angle with probable left basilar atelectasis and left pleural thickening.? ECG Data Attestation: I personally reviewed and interpreted this ECG as follows: Interpretation: Atrial fibrillation Ventricular rate [address] T wave changes MDM Narrative Medical decision making narrative: Patient is rate controlled AFib for which he is anticoagulated for. Patient is not in heart failure. His BNP his baseline. No fluid overload on his chest x- ray. Troponins are negative x2. Has no signs of pneumonia. He denies chest pain. He is not having any specific neurologic complaints today. Patient came in stating that he has had a pericardial effusion in the past however I have also seen other things that maybe this was actually pericarditis. He does not have any EKG findings consistent with pericarditis. 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 No indication for admission to the hospital today. He was given return precautions. He expressed understanding and agreement. Discharge Plan Departure Patient Disposition: Home Clinical Impression: Breathlessness on exertion, Fatigue Instructions: How to Manage Shortness of Breath Activity Restrictions/Additional Instructions: recommend that you continue to take all of your medications as directed. Contact your primary doctor for follow-up and also Cardiology for follow-up as well. Return to the emergency department for new or worsening symptom. Prescriptions: No Action metoprolol succinate 100 mg tablet extended release 24 hr 100 mg PO DAILY Qty: 90 4RF insulin lispro [Humalog U-100 Insulin] 100 unit/mL solution 0 unit SUBCUT Q4H Qty: 3 0RF losartan 100 mg tablet 100 mg PO DAILY Qty: 90 3RF spironolactone 25 mg tablet 25 mg PO DAILY Qty: 90 3RF Eliquis 5 mg tablet 5 mg PO BID Qty: 180 3RF ipratropium bromide 42 mcg (0.06 %) spray,non-aerosol 2 spray intranasal TID-QID PRN (Reason: allergy symptoms) Qty: 45 4RF Rx Instructions: administer into each nostril gabapentin 100 mg capsule 100 mg PO TID Qty: 270 3RF allopurinol 300 mg tablet 300 mg PO DAILY Qty: 90 4RF lovastatin 40 mg tablet 40 mg PO QPM Qty: 90 3RF tamsulosin [Flomax] 0.4 mg capsule 0.8 mg PO QPM Qty: 180 3RF metformin 500 mg tablet 500 mg PO BIDWMEAL Qty: 180 0RF budesonide-formoterol [Symbicort] 80-4.5 mcg/actuation HFA aerosol inhaler 2 puff inhalation BID Qty: 3 3RF furosemide 20 mg tablet 20 mg PO DAILY methotrexate sodium (PF) 25 mg/mL solution 1 ml IM QWEEK Patient Comments: tuesday Rx Instructions: pt says he just hasn't taken it in a while multivitamin [One Daily Multivitamin] Tablet 1 tab PO DAILY prednisone 5 mg tablet 5 mg PO ONCE famotidine [Pepcid] 40 mg tablet 40 mg PO BEDTIME Qty: 90 3RF albuterol sulfate 90 mcg/actuation HFA aerosol inhaler 2 puff INHALATION Q4H PRN (Reason: shortness of breath or wheezing) acetaminophen [Tylenol Extra Strength] 500 mg tablet 1,000 mg PO TID PRN (Reason: Pain (Scale Score 1-3)) Referrals: Michelet Irby MD [Primary Care Provider] - Stand Alone Forms: Patient Portal/API
[2022-11-23 23:51] LABS: Creatine Kinase 39 U/L (55-170)
[2022-11-24] VITALS (8 sets, daily range): BP systolic 107–115; BP diastolic 58–70; PULSE 78–88; RESP 12–23; O2SAT 95–99
[2022-11-24 00:04] LABS: NT-proBNP (BNP-Adult 18+) 2670 pg/mL (<450); Troponin I < 0.012 ng/mL (0.01-0.034)
[2022-11-24 00:09] LABS: Alanine Aminotransferase 26 IU/L (<50); Albumin 4.5 g/dL (3.5-5.0); Albumin Globulin Ratio 1.9 (1.0-2.8); Alkaline Phosphatase 30 U/L (38-126); Aspartate Aminotransferase 30 IU/L (17-59); BUN Creatinine Ratio 28.7 (6-22); Bilirubin Total 1.3 mg/dL (0.2-1.3); Blood Urea Nitrogen 39 mg/dL (9-20); Calcium 9.7 mg/dL (8.4-10.2); Carbon Dioxide 23 mmol/L (22-32); Chloride 100 mmol/L (98-107); Estimated Glomerular Filt Rate 51 mL/min (>60); Globulin 2.4 g/dL (1.7-4.1); Glucose 108 mg/dL (80-110); Lipase 84 U/L (23-300); Magnesium 2.1 mg/dL (1.6-2.3); Sodium 132 mmol/L (137-145); Total Protein 6.9 g/dL (6.3-8.2)
[2022-11-24 00:10] LABS: HEMOLYSIS 58 (0-50); Potassium 5.5 mmol/L (3.4-5.1)
--- NOTE | 2022-11-24 00:46 | PC.NURSE ---
Pt is taking his home supply of evening medications. aware. Pt took: Eliquis 5mg Famotidine 40mg Finasteride 5mg Tamsulosin HCL 0.8mg Losartan 40mg Lovastatin 40mg Gabapentin 100mg Metformin 500mg Tylenol 1,000mg Symbicort (generic) 80/4.5 two puffs
[2022-11-24 02:43] LABS: Creatine Kinase 21 U/L (55-170)
[2022-11-24 02:56] LABS: Troponin I < 0.012 ng/mL (0.01-0.034)
== END 2022-11-24 03:28 | disposition home or self-care (01) ==
PROVIDERS: Emergency Provider Emergency Medicine; Family Provider Family Medicine; PCP Family Medicine
DX: R06.81 Apnea, not elsewhere classified (principal); R53.83 Other fatigue; R06.02 Shortness of breath; I50.9 Heart failure, unspecified; Z79.01 Long term (current) use of anticoagulants
CPT/HCPCS: 36415; 71045; 80053; 82550; 83690; 83735; 83880; 84484; 85025; 85610; 85730; 93005; 99283; 99284

== ENCOUNTER → 2022-12-01 10:54 | Outpatient (CLI) | payer MEDICARE, SELFPAY ==
[2021-09-25 20:17] VITALS: BMI 27.5
--- NOTE | 2022-12-01 | DI.ECHO.S_ITS ---
[facility]---------+ [facility] +---------+ : : [address] : : : : [id number] : : : : Phone: [phone]+ Echocardiogram Report + + :Name: AMITA JIMENEZ Study Date: 12/01/2022 Height: 69 in : :[facility] ReadingLocation: Weight: 175 lb: : Gender: Male BSA: 2.0 m2 : :: 1935 Age: 87 yrs BP: 96/64 mmHg: :Reason For Study: DYSPNEA ON EXERTION : :Ordering Physician: DOUG, : :EVITA Performed By: Jillian Flores : :Referring: EVITA RAY : + + Interpretation Summary 1) Normal left ventricular size and thickness with low normal systolic function (EF 50-55%). 2) Mildly enlarged right ventricle with normal functoin. 3) Moderate biatrial enlargement present. 4) There is moderate tricuspid regurgitation. 5) Compared to the Echo done 09/13/2021, LVEF has decreased slightly from normal to low normal on this study. Procedure: A two-dimensional transthoracic echocardiogram with color flow and Doppler was performed. The study quality was technically adequate. Comparison is made with the echocardiogram of 09/13/2021. The patient was in atrial fibrillation with heart rates between 82-108 bpm during the exam. Left Ventricle: The left ventricle is normal in size and wall thickness. The ejection fraction is estimated to be 50-55%. There are no focal wall motion abnormalities. Diastolic function could not be accurately assessed due to atrial fibrillation. Right Ventricle: The right ventricle is mildly dilated. The right ventricular systolic function is normal. Atria: The left atrium is moderately dilated. The right atrium is moderately dilated. There is no Doppler evidence for an interatrial shunt. Mitral Valve: The mitral valve is normal in structure and function. There is mild mitral regurgitation. Aortic Valve: The aortic valve is trileaflet. The aortic valve opens well. There is no aortic valve stenosis. There is mild aortic regurgitation. Tricuspid Valve: The tricuspid valve leaflets are thin and pliable. There is moderate tricuspid regurgitation. The right ventricular systolic pressure is estimated to be at least 38 mmHg based on an estimated right atrial pressure of 3 mm Hg. Pulmonic Valve: The pulmonic valve leaflets are thin and pliable; valve motion is normal. There is trace pulmonic regurgitation. Great Vessels: The aortic root is normal size. The dimensions of the ascending aorta are normal. The IVC is of normal diameter and collapses greater than 50% with a sniff. This suggests a low right atrial pressure of 3 mm Hg. Pericardium/ Pleura There is no pericardial effusion. There is no pleural effusion. MMode/2D Measurements & Calculations LVIDd: 4.6 cm LVOT diam: 2.5 cm LVIDs: 3.3 cm Ao root diam: 3.4 cm FS: 29.1 % asc Aorta Diam: 3.3 cm IVSd: 0.85 cm LVPWd: 0.91 cm LV arias. diameter/BSA (cm/m^2): 2.4 LV sys. diameter/BSA (cm/m^2): 1.7 LA A2 area: 23.4 cm2 RA long axis: 6.5 cm LA A4 area: 23.0 cm2 RA area: 25.4 cm2 LA length (vol): 5.8 cm RA vol: 83.5 ml LA vol: 78.2 ml RA : 42.8 ml/m2 LA vol index: 40.1 ml/m2 IVC diam: 1.5 cm RVD1 (basal): 4.2 cm RVD2 (mid): 3.0 cm Doppler Measurements & Calculations Ao V2 max: 79.3 cm/sec LVOT Max Elvis: 50.2 cm/sec Ao V2 mean: 54.6 cm/sec LV V1 max P.0 mmHg Ao max P.5 mmHg LV V1 VTI: 10.0 cm Ao mean P.4 mmHg CHET(I,D): 3.9 cm2 Ao V2 VTI: 12.3 cm CHET(V,D): 3.0 cm2 sev ratio: 0.81 CHET indexed to BSA (cm^2/m^2): 2.0 MV E max elvis: 66.3 cm/sec TR max elvis: 295.0 cm/sec MV A max elvis: 2.7 cm/sec TR max P.8 mmHg MV E/A: 24.6 PA V2 max: 75.1 cm/sec Med Peak E' Elvis: 11.8 cm/sec PA V2 mean: 52.7 cm/sec E/E' med: 5.6 PA mean P.2 mmHg Lat Peak E' Elvis: 14.7 cm/sec PA pr(Accel): 49.9 mmHg E/E' lat: 4.5 E/e' average: 5.1 MV dec time: 0.14 sec SVLVOT): 47.5 ml Reading Physician:04:04 PM
== END ==
PROVIDERS: Family Provider Family Medicine; PCP Family Medicine; Referring Provider Internal Medicine Cardiovascular Disease; Visit Provider Internal Medicine Cardiovascular Disease
DX: R06.09 Other forms of dyspnea (principal); I08.3 Combined rheumatic disorders of mitral, aortic and tricuspid valves
CPT/HCPCS: 93306

== ENCOUNTER → 2022-12-27 14:00 | Outpatient (CLI) | payer MEDICARE, SELFPAY ==
[2021-09-25 20:17] VITALS: BMI 27.5
[2022-12-27 20:23] LABS: Blood Urea Nitrogen 23 mg/dL (9-20); Calcium 8.9 mg/dL (8.4-10.2); Carbon Dioxide 29 mmol/L (22-32); Chloride 100 mmol/L (98-107); Estimated Glomerular Filt Rate > 60 mL/min (>60); Glucose 117 mg/dL (80-110); HEMOLYSIS < 15 (0-50); Sodium 135 mmol/L (137-145)
[2022-12-27 20:38] LABS: NT-proBNP (BNP-Adult 18+) 3030 pg/mL (<450)
== END ==
PROVIDERS: Family Provider Family Medicine; PCP Family Medicine; Visit Provider Internal Medicine Cardiovascular Disease
DX: I10 Essential (primary) hypertension (principal); I50.32 Chronic diastolic (congestive) heart failure; R06.09 Other forms of dyspnea
CPT/HCPCS: 80048; 83880

== ENCOUNTER → 2023-01-17 13:59 | Outpatient (CLI) | payer MEDICARE, SELFPAY ==
[2021-09-25 20:17] VITALS: BMI 27.5
[2023-01-17 20:18] LABS: Add Manual Diff / Slide Review NO; Basophils Absolute Auto 100 /uL (0-100); Basophils Percent Auto 0.5 % (0-2); Eosinophils Absolute Auto 100 /uL (0-450); Eosinophils Percent Auto 0.8 % (2-4); Hematocrit 41.7 % (41-53); Hemoglobin 13.6 g/dL (13.5-17.5); Lymphocytes Absolute Auto 1100 /uL (1100-4500); Lymphocytes Percent Auto 9.3 % (25-40); Mean Corpuscular HGB Conc 32.6 % (30-36); Mean Corpuscular Hemoglobin 33.8 PG (26-34); Mean Corpuscular Volume 103.9 fL (80-100); Monocytes Absolute Auto 1000 /uL (0-900); Monocytes Percent Auto 8.1 % (3-14); Neutrophils Absolute Auto 9500 /uL (1500-7000); Neutrophils Percent Auto 81.3 % (50-75); Platelet Count 171 X10^3/uL (150-400); Red Blood Cell Count 4.01 X10^6/uL (4.5-5.9); Red Cell Distribution Width 16.2 % (11.6-14.8); White Blood Cell Count 11.7 X10^3/uL (4.5-11.0)
[2023-01-17 20:30] LABS: Alanine Aminotransferase 23 IU/L (<50); Albumin 3.9 g/dL (3.5-5.0); Albumin Globulin Ratio 1.7 (1.0-2.8); Alkaline Phosphatase 37 U/L (38-126); Aspartate Aminotransferase 28 IU/L (17-59); BUN Creatinine Ratio 31.3 (6-22); Blood Urea Nitrogen 35 mg/dL (9-20); C-Reactive Protein Quant 1.8 mg/dL (<1.0); Calcium 9.4 mg/dL (8.4-10.2); Carbon Dioxide 26 mmol/L (22-32); Chloride 102 mmol/L (98-107); Estimated Glomerular Filt Rate > 60 mL/min (>60); Globulin 2.3 g/dL (1.7-4.1); Glucose 93 mg/dL (80-110); HEMOLYSIS 17 (0-50); Potassium 3.9 mmol/L (3.4-5.1); Sodium 137 mmol/L (137-145); Total Protein 6.2 g/dL (6.3-8.2)
[2023-01-17 20:40] LABS: Erythrocyte Sedimentation Rate 2 MM/HR (0-15)
== END ==
PROVIDERS: Family Provider Family Medicine; PCP Family Medicine; Visit Provider Internal Medicine Rheumatology
DX: M05.9 Rheumatoid arthritis with rheumatoid factor, unspecified (principal)
CPT/HCPCS: 80053; 85025; 85651; 86140

== ENCOUNTER → 2023-02-21 15:01 | Outpatient (CLI) | payer MEDICARE, SELFPAY ==
[2023-01-28 09:51] VITALS: BMI 27.5
--- NOTE | 2023-02-21 | DI.RAD.S_ITS ---
PROCEDURE: XR LUMBAR SPINE MIN 4V INDICATIONS: OSTEOPOROSIS TECHNIQUE: 5 views of the lumbar spine were acquired, including bilateral oblique views. COMPARISON: None. FINDINGS: Bones: 5 nonrib-bearing vertebrae are present. There is normal bony alignment. No vertebral body compression fractures. No suspicious bony lesions. Moderate disc height loss at all levels. Soft tissues: Overlying bowel gas pattern is normal. No suspicious soft tissue calcifications. Gallstone present. Oblique images: No pars defects. IMPRESSION: Moderate, multilevel degenerative disc disease. Cholelithiasis. Dictated by: Camilo Carrillo M.D. on 02/21/2023 at 16:53 Approved by: Camilo Carrillo M.D. on 02/21/2023 at 16:53
== END ==
PROVIDERS: Family Provider Family Medicine; PCP Family Medicine; Referring Provider Internal Medicine Rheumatology; Visit Provider Internal Medicine Rheumatology
DX: M81.8 Other osteoporosis without current pathological fracture (principal); M51.36 Other intervertebral disc degeneration, lumbar region
CPT/HCPCS: 72110

== ENCOUNTER → 2023-02-24 14:05 | Outpatient (CLI) | payer MEDICARE, SELFPAY ==
[2023-01-28 09:51] VITALS: BMI 27.5
[2023-02-24 19:27] LABS: Hematocrit 42.4 % (41-53); Mean Corpuscular Hemoglobin 33.1 PG (26-34); Mean Corpuscular Volume 100.3 fL (80-100); Platelet Count 164 X10^3/uL (150-400); Red Blood Cell Count 4.23 X10^6/uL (4.5-5.9); Red Cell Distribution Width 15.9 % (11.6-14.8); White Blood Cell Count 8.3 X10^3/uL (4.5-11.0)
[2023-02-24 19:33] LABS: Alanine Aminotransferase 23 IU/L (<50); Albumin 3.8 g/dL (3.5-5.0); Albumin Globulin Ratio 1.7 (1.0-2.8); Alkaline Phosphatase 40 U/L (38-126); Aspartate Aminotransferase 28 IU/L (17-59); BUN Creatinine Ratio 27.7 (6-22); Bilirubin Total 0.8 mg/dL (0.2-1.3); Blood Urea Nitrogen 36 mg/dL (9-20); C-Reactive Protein Quant 0.7 mg/dL (<1.0); Calcium 9.2 mg/dL (8.4-10.2); Carbon Dioxide 24 mmol/L (22-32); Chloride 99 mmol/L (98-107); Estimated Glomerular Filt Rate 54 mL/min (>60); Globulin 2.3 g/dL (1.7-4.1); Glucose 141 mg/dL (80-110); HEMOLYSIS 17 (0-50); Potassium 4.2 mmol/L (3.4-5.1); Sodium 132 mmol/L (137-145); Total Protein 6.1 g/dL (6.3-8.2)
[2023-02-24 20:31] LABS: Erythrocyte Sedimentation Rate 3 MM/HR (0-15)
== END ==
PROVIDERS: Family Provider Family Medicine; PCP Family Medicine; Visit Provider Internal Medicine Rheumatology
DX: M05.79 Rheumatoid arthritis with rheumatoid factor of multiple sites without organ or systems involvement (principal)
CPT/HCPCS: 80053; 85027; 85651; 86140

== ENCOUNTER → 2023-03-17 16:47 | Outpatient (CLI) | payer MEDICARE, SELFPAY ==
[2023-01-28 09:51] VITALS: BMI 27.5
--- NOTE | 2023-03-17 16:48 | DI.MRI.S_ITS ---
PROCEDURE: MR LUMBAR SPINE WO CON INDICATIONS: low back pain TECHNIQUE: Noncontrast sagittal T1 spin echo and T2 fast echo, sagittal STIR, and T2 fast spin echo through the lumbar spine. In cases with scoliosis, additional coronal T2 fast spin echo may be performed. COMPARISON: None. FINDINGS: Image quality: Excellent. Alignment and Curvature: There is normal bony alignment. Bone Marrow: Marrow is of normal overall signal. No acute vertebral body compression fractures. Spinal Cord: Conus medullaris terminates at the L1-L2 level. Visualized cord demonstrates normal signal and size. Paraspinous Soft Tissues: No paravertebral masses. T12-L1: Mild disc bulge. No canal stenosis or foraminal stenosis. L1-L2: Chronic disc height loss. Diffuse posterior disc bulge. Facet hypertrophy. No significant canal stenosis or foraminal stenosis. L2-L3: Disc bulge. Mild facet hypertrophy. No canal stenosis or foraminal stenosis. L3-L4: Chronic disc height loss. Mild posterior disc plus osteophyte. Facet hypertrophy. No significant canal stenosis. Moderate left foraminal stenosis with mild flattening deformity on the exiting left L3 nerve root. L4-L5: Short pedicles. Mild left paracentral disc protrusion with a degree of impingement on the left L5 nerve root in the left lateral recess. There is bilateral facet hypertrophy. There is moderate central canal stenosis.There is mild right foraminal narrowing and mild to moderate left foraminal narrowing. L5-S1: Disc bulge. Facet hypertrophy. No significant canal stenosis. Moderate bilateral foraminal stenosis. IMPRESSION: 1. The most significant findings are at L4-L5. There is a mild left paracentral disc protrusion with a degree of impingement on the left L5 nerve root in the left lateral recess. There is moderate central canal stenosis. 2. Multilevel facet arthropathy. 3. Multilevel foraminal narrowing as described above. Foraminal narrowing is moderate on the left at L3-L4 and moderate bilaterally at L5-S1. Dictated by: Martín Vargas M.D. on 03/18/2023 at 8:15 Approved by: Martín Vargas M.D. on 03/18/2023 at 8:20
--- NOTE | 2023-03-17 16:48 | DI.MRI.S_ITS ---
PROCEDURE: MR CERVICAL SPINE WO CON INDICATIONS: neck pain TECHNIQUE: Noncontrast sagittal T1 spin echo and T2 fast spin echo, sagittal STIR, foraminal oblique sagittal T2 fast spin echo, and axial gradient echo or T2 fast spin echo through the cervical spine. COMPARISON: None. FINDINGS: Image quality: Excellent. Alignment and Curvature: There is normal bony alignment. Bone Marrow: Marrow demonstrates normal overall signal. Spinal Cord: Visualized spinal cord has normal size and signal. No cerebellar tonsillar herniation. Paraspinous Soft Tissues: No paravertebral masses. Prevertebral soft tissues are normal in thickness. C2-C3: Prominent right facet hypertrophy. No canal stenosis. Mild right foraminal narrowing. C3-C4: Short pedicles. Diffuse posterior disc plus osteophyte. Posterior ligamentous hypertrophy. Bilateral facet arthropathy, quite prominent on the right. AP diameter of the central canal is 7.7 mm. Severe right foraminal narrowing and moderate to severe left foraminal narrowing with bilateral foraminal C4 nerve root impingement. C4-C5: Posterior disc post osteophyte. Indentation on the ventral cord. AP diameter of the central canal is 9.5 mm. Bilateral facet hypertrophy, marked on the right. Severe bilateral foraminal narrowing with impingement on the exiting bilateral C5 nerve roots. C5-C6: Chronic disc height loss. Posterior disc plus osteophyte. AP diameter of the central canal is 9.8 mm. Bilateral uncovertebral joint hypertrophy and facet hypertrophy. Severe bilateral foraminal narrowing with bilateral foraminal C6 nerve root impingement. C6-C7: Chronic disc height loss. Posterior disc plus osteophyte. AP diameter of the central canal is 9.1 mm. Bilateral uncovertebral joint hypertrophy. Moderate right foraminal narrowing. Severe left foraminal narrowing with left foraminal C7 nerve root impingement. C7-T1: Chronic disc height loss. Disc bulge with mild superimposed left paracentral disc protrusion. No canal stenosis. AP diameter of the central canal is 10.5 mm. Mild bilateral foraminal narrowing. IMPRESSION: 1. There is multilevel facet hypertrophy bilaterally, including multiple levels on the left right that are quite prominent or marked. 2. There is severe canal stenosis at C3-C4. There is at least mild canal stenosis at C4-C5 through C6-C7. 3. Advanced multilevel foraminal narrowing as described above. Findings include severe right foraminal narrowing and moderately severe left foraminal narrowing at C3-C4, severe bilateral foraminal narrowing at C4-C5, severe bilateral foraminal narrowing at C5-C6, and severe left foraminal narrowing at C6-C7. Dictated by: Martín Vargas M.D. on 03/18/2023 at 8:24 Approved by: Martín Vargas M.D. on 03/18/2023 at 8:34
== END ==
PROVIDERS: Family Provider Family Medicine; PCP Family Medicine; Referring Provider Family Medicine; Visit Provider Family Medicine
DX: M47.27 Other spondylosis with radiculopathy, lumbosacral region (principal); M47.26 Other spondylosis with radiculopathy, lumbar region; M51.16 Intervertebral disc disorders with radiculopathy, lumbar region; M48.061 Spinal stenosis, lumbar region without neurogenic claudication; M48.07 Spinal stenosis, lumbosacral region; M47.22 Other spondylosis with radiculopathy, cervical region; M48.02 Spinal stenosis, cervical region; M54.2 Cervicalgia
CPT/HCPCS: 72141; 72148

== ENCOUNTER → 2023-04-18 11:25 | Outpatient (CLI) | payer MEDICARE, SELFPAY ==
[2023-01-28 09:51] VITALS: BMI 27.5
[2023-04-18 19:55] LABS: Cholesterol 114 mg/dL (140-199); HDL Cholesterol 39 mg/dL (40-60); LDL Cholesterol Calculated 47 mg/dL (<100); Triglycerides 141 mg/dL (35-150)
[2023-04-19 14:13] LABS: Microalbumin Urine Random 1.4 mg/dL (0-1.6)
[2023-04-19 14:37] LABS: Creatinine Urine Random 78.2 mg/dL; Microalbumi Creatinin Ratio Ur 17.9 ug/mg CR (<30)
== END ==
PROVIDERS: Family Provider Family Medicine; PCP Family Medicine; Visit Provider Family Medicine
DX: E11.9 Type 2 diabetes mellitus without complications (principal); I10 Essential (primary) hypertension
CPT/HCPCS: 80061; 82043; 82570

== ENCOUNTER 2023-05-11 14:13 | Outpatient (CLI) | payer MEDICARE, SELFPAY ==
[2023-04-21 13:53] VITALS: BMI 27.5
[2023-05-11 14:25] VITALS: BP 130/68; PULSE 69; RESP 18; TEMP 35.9; O2SAT 98
[2023-05-11 14:51] VITALS: BP 102/59; PULSE 117; RESP 19
[2023-05-11 14:56] VITALS: PULSE 110; RESP 20
[2023-05-11] MEDS: DEXAMETHASONE 10 MG/ML VIAL INJ (14:58)
[2023-05-11] MEDS: iopamidoL 15 ML VIAL 3 ML INJ (14:59)
--- NOTE | 2023-05-11 15:00 | DI.RAD.S_ITS ---
PROCEDURE: PAIN C/T INTERLAMINAR INJECT INDICATIONS: radiculopathy COMPARISON: None. FINDINGS: Fluoroscopic spot filming was performed to verify placement of spinal needles at the C7-T1 level(s), as labeled on the films. Appropriate location(s) of the needle tip(s) was confirmed by injection of iodinated contrast. IMPRESSION: Fluoroscopic guidance utilized for an interlaminar epidural steroid injection. Dictated by: Camilo Carrillo M.D. on 05/11/2023 at 16:34 Approved by: Camilo Carrillo M.D. on 05/11/2023 at 16:35
[2023-05-11 15:01] VITALS: BP 110/67; PULSE 110; RESP 23; O2SAT 100
[2023-05-11 15:06] VITALS: BP 105/62; PULSE 113; RESP 13; O2SAT 100
--- NOTE | 2023-05-11 15:17 | P.PCN_ITS ---
Date/Time/Diagnoses Date of procedure: 05/11/23 Time of procedure: 15:00 Procedure Notes Physician: Forrest Wilson Total Fluoroscopy time (seconds): 30 Total sedation minutes: 0 Procedure in detail & Post-procedure care: C7-T1 Interlaminar Epidural Steroid Injection Indications: Matthew is presenting for treatment of cervical radiculopathy with neck and arm pain. Fingerstick blood sugar 122. Patient held Eliquis for 3 days prior to injection. Preoperative diagnosis: Cervical radiculopathy Postoperative diagnosis: Same Focused Examination: Ax3 Mood and affect are normal Vital Signs: VSS Consent: Following review of allergies and potential side effects/complications, including, but not necessarily limited to, infection, allergic reaction, local tissue breakdown, stroke, temporary or permanent nerve injury, paralysis, and possible , the patient indicated that they understood and agreed to proceed.? An informed consent document was signed by the patient, witnessed by a nurse and placed in the patient's chart.? Additionally, other treatment options including medications and physical therapy were reviewed with the patient. All questions were answered. Site was then marked. Anesthesia: Local Position: Prone Monitoring: NIBP, Pulse oximetry, 3 lead EKG Needle used: 18 G 3.5? Tuohy Contrast: Isovue 300-M 2 mL Injectate: Dexamethasone 10 mg followed by Normal Saline 2 mL Technique: The skin was prepped with chloraprep and then draped in a sterile fashion. Time out was performed as per protocol. Oxygen applied via NC. Skin and subcutaneous structures of the needle entry site was then infiltrated with 3 mL of lidocaine 1%. Under AP, lateral and contralateral oblique fluoroscopic control, the Tuohy needle was guided into the C7-T1 epidural space. The space was accessed with loss of resistance technique. Isovue 300-M was then injected and the spread was consistent with the epidural space. There was no evidence for intravascular or intrathecal uptake. After negative aspiration, the above- mentioned injectate was then slowly administered and the needle withdrawn. The patient expressed no unusual discomfort or paresthesias during the injection. Band-Aids applied to injection sites. EBL: less than 1 ml Complications: None Post Procedure: Patient was taken to the recovery and monitored. The patient was provided a Pain Log to continue to record the patient's response to the target- specific procedure prior to the patient's follow-up visit with the referring physician. Patient was stable upon discharge. Detailed post procedure instructions were provided. Patient was asked to call in the event of worsening pain, fever, weakness, numbness or bladder or bowel incontinence.
[2023-05-11 15:20] VITALS: BP 101/55; PULSE 69; RESP 16; O2SAT 97
--- NOTE | 2023-05-12 14:01 | PC.NURSE ---
post procedure call- Spoke with and patient who reports that his neck pain is much better practically gone. He does report that he has been having a little bit of dizziness and feels like his equilibrium is off. Encouraged patient and to monitor his b/p and if this continues to seek urgent care. Called spoke with Jerem[facility] and sending message to Dr Wilson and clinic will f/u.
== END 2023-05-11 15:36 | disposition home or self-care (01) ==
PROVIDERS: Family Provider Family Medicine; PCP Family Medicine; Referring Provider Anesthesiology; Visit Provider Anesthesiology
DX: M54.12 Radiculopathy, cervical region (principal)
CPT/HCPCS: 62321; 82962; J1100

== ENCOUNTER → 2023-06-16 14:33 | Outpatient (CLI) | payer MEDICARE, SELFPAY ==
[2023-04-21 13:53] VITALS: BMI 27.5
[2023-06-16 20:04] LABS: Appearance Urine UA SL CLOUDY; Bilirubin Urine UA NEGATIVE (NEGATIVE); Color Urine UA YELLOW; Glucose Urine UA NEGATIVE (Negative); Ketones Urine UA NEGATIVE (NEGATIVE); Leukocyte Esterase Urine UA 2+ (NEGATIVE); Nitrite Urine UA POSITIVE (Negative); Occult Blood Urine UA NEGATIVE (Negative); Protein Urine UA NEGATIVE (Negative); Specific Gravity Urine UA 1.015 (1.000-1.035); Urobilinogen Urine UA 0.2 E.U./dL (0.2)
[2023-06-16 20:07] LABS: Add Manual Diff / Slide Review NO; Basophils Absolute Auto 100 /uL (0-100); Basophils Percent Auto 0.9 % (0-2); Eosinophils Absolute Auto 100 /uL (0-450); Eosinophils Percent Auto 1.7 % (2-4); Hematocrit 39.3 % (41-53); Hemoglobin 12.6 g/dL (13.5-17.5); Lymphocytes Absolute Auto 1000 /uL (1100-4500); Lymphocytes Percent Auto 12.7 % (25-40); Mean Corpuscular HGB Conc 32.2 % (30-36); Mean Corpuscular Hemoglobin 31.8 PG (26-34); Mean Corpuscular Volume 98.9 fL (80-100); Monocytes Absolute Auto 900 /uL (0-900); Monocytes Percent Auto 11.9 % (3-14); Neutrophils Absolute Auto 5500 /uL (1500-7000); Neutrophils Percent Auto 72.8 % (50-75); Platelet Count 245 X10^3/uL (150-400); Red Blood Cell Count 3.97 X10^6/uL (4.5-5.9); White Blood Cell Count 7.5 X10^3/uL (4.5-11.0)
[2023-06-16 20:23] LABS: Bacteria Urine Moderate (10-30); Culture Indicated Urine Specimen Cultured; RBC Urine None Seen (0-5/HPF); Squamous Epithelial Cell Urine None Seen (0-5/HPF); Urine Volume 10mL (spun); WBC Urine 5-10/HPF (0-5/HPF)
[2023-06-16 20:27] LABS: Hemoglobin A1C% w Est Avg Glu 5.3 % (4.0-6.0)
[2023-06-16 20:34] LABS: Alanine Aminotransferase 16 IU/L (<50); Albumin 3.7 g/dL (3.5-5.0); Albumin Globulin Ratio 1.3 (1.0-2.8); Alkaline Phosphatase 47 U/L (38-126); Aspartate Aminotransferase 75 IU/L (17-59); BUN Creatinine Ratio 21.9 (6-22); Bilirubin Total 1.1 mg/dL (0.2-1.3); Blood Urea Nitrogen 30 mg/dL (9-20); Calcium 9.1 mg/dL (8.4-10.2); Carbon Dioxide 27 mmol/L (22-32); Chloride 100 mmol/L (98-107); Estimated Glomerular Filt Rate 50 mL/min (>60); Globulin 2.8 g/dL (1.7-4.1); Glucose 119 mg/dL (80-110); HEMOLYSIS 21 (0-50); Potassium 4.2 mmol/L (3.4-5.1); Sodium 135 mmol/L (137-145); Total Protein 6.5 g/dL (6.3-8.2)
[2023-06-16 20:36] LABS: C-Reactive Protein Quant 0.9 mg/dL (<1.0)
[2023-06-16 21:06] LABS: Prostate Specific Antigen Scrn < 0.064 ng/mL (0.1-4.0)
== END ==
PROVIDERS: Family Provider Family Medicine; PCP Family Medicine; Visit Provider Internal Medicine Rheumatology
DX: Z12.5 Encounter for screening for malignant neoplasm of prostate (principal); M05.79 Rheumatoid arthritis with rheumatoid factor of multiple sites without organ or systems involvement; R63.4 Abnormal weight loss; R10.9 Unspecified abdominal pain; I10 Essential (primary) hypertension; N40.1 Benign prostatic hyperplasia with lower urinary tract symptoms; R35.1 Nocturia; M10.9 Gout, unspecified; E78.2 Mixed hyperlipidemia; D64.9 Anemia, unspecified; E87.1 Hypo-osmolality and hyponatremia; E11.9 Type 2 diabetes mellitus without complications; I50.9 Heart failure, unspecified; Z86.73 Personal history of transient ischemic attack (TIA), and cerebral infarction without residual deficits
CPT/HCPCS: 80053; 81003; 81015; 83036; 85025; 86140; 87077; 87086; 87186; G0103

== ENCOUNTER → 2023-06-27 12:53 | Outpatient (CLI) | payer MEDICARE, SELFPAY ==
[2023-04-21 13:53] VITALS: BMI 27.5
== END ==
PROVIDERS: Family Provider Family Medicine; PCP Family Medicine; Visit Provider Physician Assistant
DX: N39.0 Urinary tract infection, site not specified (principal)
CPT/HCPCS: 87086

== ENCOUNTER → 2023-07-18 11:04 | Outpatient (CLI) | payer MEDICARE, SELFPAY ==
[2023-04-21 13:53] VITALS: BMI 27.5
[2023-07-18 19:12] LABS: Add Manual Diff / Slide Review NO; Basophils Absolute Auto 0 /uL (0-100); Basophils Percent Auto 0.7 % (0-2); Eosinophils Absolute Auto 100 /uL (0-450); Eosinophils Percent Auto 2.3 % (2-4); Hematocrit 39.2 % (41-53); Hemoglobin 12.6 g/dL (13.5-17.5); Lymphocytes Absolute Auto 1100 /uL (1100-4500); Lymphocytes Percent Auto 16.6 % (25-40); Mean Corpuscular HGB Conc 32.2 % (30-36); Mean Corpuscular Volume 96.3 fL (80-100); Monocytes Absolute Auto 800 /uL (0-900); Monocytes Percent Auto 11.8 % (3-14); Neutrophils Absolute Auto 4400 /uL (1500-7000); Neutrophils Percent Auto 68.6 % (50-75); Platelet Count 183 X10^3/uL (150-400); Red Blood Cell Count 4.07 X10^6/uL (4.5-5.9); Red Cell Distribution Width 17.2 % (11.6-14.8); White Blood Cell Count 6.5 X10^3/uL (4.5-11.0)
[2023-07-18 19:29] LABS: BUN Creatinine Ratio 19.2 (6-22); Blood Urea Nitrogen 19 mg/dL (9-20); Carbon Dioxide 28 mmol/L (22-32); Chloride 105 mmol/L (98-107); Cholesterol 101 mg/dL (140-199); Estimated Glomerular Filt Rate > 60 mL/min (>60); Glucose 111 mg/dL (80-110); HDL Cholesterol 31 mg/dL (40-60); HEMOLYSIS < 15 (0-50); LDL Cholesterol Calculated 42 mg/dL (<100); Sodium 136 mmol/L (137-145); Triglycerides 139 mg/dL (35-150)
== END ==
PROVIDERS: Family Provider Family Medicine; PCP Family Medicine; Visit Provider Internal Medicine Cardiovascular Disease
DX: E78.5 Hyperlipidemia, unspecified (principal); I10 Essential (primary) hypertension; Z79.01 Long term (current) use of anticoagulants
CPT/HCPCS: 80048; 80061; 85025

== ENCOUNTER → 2023-07-25 12:48 | Outpatient (CLI) | payer MEDICARE, SELFPAY ==
[2023-04-21 13:53] VITALS: BMI 27.5
== END ==
PROVIDERS: Family Provider Family Medicine; PCP Family Medicine; Referring Provider Podiatrist; Visit Provider Surgery
DX: E11.621 Type 2 diabetes mellitus with foot ulcer (principal); L97.522 Non-pressure chronic ulcer of other part of left foot with fat layer exposed; L84 Corns and callosities; I73.9 Peripheral vascular disease, unspecified; I25.10 Atherosclerotic heart disease of native coronary artery without angina pectoris; Z79.01 Long term (current) use of anticoagulants; Z87.891 Personal history of nicotine dependence; I48.91 Unspecified atrial fibrillation
CPT/HCPCS: 11042; 87070; 87075; 87077; 87186; 87205; 99203; 99213

== ENCOUNTER → 2023-08-03 08:51 | Outpatient (CLI) | payer MEDICARE, SELFPAY ==
[2023-04-21 13:53] VITALS: BMI 27.5
== END ==
LOC: WC 08-05 08:52
PROVIDERS: Family Provider Family Medicine; PCP Family Medicine; Referring Provider Podiatrist; Visit Provider Surgery
DX: L97.522 Non-pressure chronic ulcer of other part of left foot with fat layer exposed (principal); E11.621 Type 2 diabetes mellitus with foot ulcer; L84 Corns and callosities; I73.9 Peripheral vascular disease, unspecified; J44.9 Chronic obstructive pulmonary disease, unspecified; I48.91 Unspecified atrial fibrillation; Z79.01 Long term (current) use of anticoagulants
CPT/HCPCS: 11042

== ENCOUNTER → 2023-08-09 13:12 | Outpatient (CLI) | payer MEDICARE, SELFPAY ==
[2023-04-21 13:53] VITALS: BMI 27.5
--- NOTE | 2023-08-09 13:14 | DI.US.S_ITS ---
PROCEDURE: US ARTERIAL DUPLEX LE BI INDICATIONS: LEFT FOOT INFECTION TECHNIQUE: Color and pulse Doppler interrogation was performed of both lower extremity arterial systems, with image documentation. COMPARISON: None. FINDINGS: Right lower extremity: Common femoral artery: 59 cm/sec, with biphasic flow. Deep femoral artery: 54 cm/sec, with biphasic flow. Proximal superficial femoral artery: 64 cm/sec, with triphasic flow. Mid superficial femoral artery: 62 cm/sec, with triphasic flow. Distal superficial femoral artery: 46 cm/sec, with triphasic flow. Popliteal artery: 40 cm/sec, with triphasic flow. Posterior tibial artery: 28 cm/sec, with biphasic flow. Anterior tibial artery/dorsalis pedis: 31 cm/sec, with biphasic flow. Corado-scale imaging description: No obvious atherosclerotic plaques are seen. Left lower extremity: Common femoral artery: 64 cm/sec, with triphasic flow. Deep femoral artery: 39 cm/sec, with triphasic flow. Proximal superficial femoral artery: 62 cm/sec, with biphasic flow. Mid superficial femoral artery: 67 cm/sec, with triphasic flow. Distal superficial femoral artery: 37 cm/sec, with biphasic flow. Popliteal artery: 45 cm/sec, with biphasic flow. Posterior tibial artery: 72 cm/sec, with monophasic flow. Anterior tibial artery/dorsalis pedis: Not visualized. Corado-scale imaging description: No significant atherosclerotic plaques are seen. IMPRESSION: 1. Finding is suggestive of 20-49% stenosis involving right proximal common femoral artery/distal external iliac artery. There is also suggestion of 20-49% stenosis involving distal right popliteal artery. 2. Finding is suggestive of 20-49% stenosis involving proximal left superficial femoral artery. There is also suggestion of 50-99% stenosis involving distal left popliteal artery with possible occlusion of proximal dorsalis pedis artery/anterior tibial artery. Dictated by: Bry Reyes M.D. on 08/09/2023 at 16:18 Approved by: Bry Reyes M.D. on 08/09/2023 at 16:26
== END ==
PROVIDERS: Family Provider Family Medicine; PCP Family Medicine; Referring Provider Family Medicine; Visit Provider Family Medicine
DX: E11.628 Type 2 diabetes mellitus with other skin complications (principal); L08.9 Local infection of the skin and subcutaneous tissue, unspecified; I73.9 Peripheral vascular disease, unspecified; E11.621 Type 2 diabetes mellitus with foot ulcer; L97.522 Non-pressure chronic ulcer of other part of left foot with fat layer exposed; L84 Corns and callosities; R23.4 Changes in skin texture; I48.91 Unspecified atrial fibrillation; J44.9 Chronic obstructive pulmonary disease, unspecified; Z79.01 Long term (current) use of anticoagulants
CPT/HCPCS: 11042; 93925

== ENCOUNTER → 2023-08-09 13:45 | Outpatient (CLI) | payer MEDICARE, SELFPAY ==
[2023-04-21 13:53] VITALS: BMI 27.5
== END ==
PROVIDERS: Family Provider Family Medicine; PCP Family Medicine; Referring Provider Podiatrist; Visit Provider Surgery
DX: E11.621 Type 2 diabetes mellitus with foot ulcer (principal); L97.522 Non-pressure chronic ulcer of other part of left foot with fat layer exposed; L84 Corns and callosities; R23.4 Changes in skin texture; I48.91 Unspecified atrial fibrillation; J44.9 Chronic obstructive pulmonary disease, unspecified; Z79.01 Long term (current) use of anticoagulants
CPT/HCPCS: 11042

== ENCOUNTER → 2023-08-23 14:30 | Outpatient (CLI) | payer MEDICARE, SELFPAY ==
[2023-04-21 13:53] VITALS: BMI 27.5
== END ==
LOC: WC 14:31
PROVIDERS: Family Provider Family Medicine; PCP Family Medicine; Referring Provider Podiatrist; Visit Provider Surgery
DX: E11.621 Type 2 diabetes mellitus with foot ulcer (principal); L97.522 Non-pressure chronic ulcer of other part of left foot with fat layer exposed; L84 Corns and callosities; I73.9 Peripheral vascular disease, unspecified; I25.10 Atherosclerotic heart disease of native coronary artery without angina pectoris; Z87.891 Personal history of nicotine dependence; I48.91 Unspecified atrial fibrillation; J44.9 Chronic obstructive pulmonary disease, unspecified
CPT/HCPCS: 15275; 99213; Q4196

== ENCOUNTER → 2023-08-30 08:41 | Outpatient (CLI) | payer MEDICARE, SELFPAY ==
[2023-04-21 13:53] VITALS: BMI 27.5
== END ==
LOC: WC 08-31 08:42
PROVIDERS: Family Provider Family Medicine; PCP Family Medicine; Referring Provider Podiatrist; Visit Provider Surgery
DX: E11.621 Type 2 diabetes mellitus with foot ulcer (principal); L97.522 Non-pressure chronic ulcer of other part of left foot with fat layer exposed; L84 Corns and callosities; R23.4 Changes in skin texture; I73.9 Peripheral vascular disease, unspecified; I48.91 Unspecified atrial fibrillation; J44.9 Chronic obstructive pulmonary disease, unspecified; Z79.01 Long term (current) use of anticoagulants
CPT/HCPCS: 15275; Q4196

== ENCOUNTER → 2023-09-06 15:06 | Outpatient (CLI) | payer MEDICARE, SELFPAY ==
[2023-04-21 13:53] VITALS: BMI 27.5
== END ==
PROVIDERS: Family Provider Family Medicine; PCP Family Medicine; Referring Provider Podiatrist; Visit Provider Surgery
DX: E11.621 Type 2 diabetes mellitus with foot ulcer (principal); L97.522 Non-pressure chronic ulcer of other part of left foot with fat layer exposed; L84 Corns and callosities; I73.9 Peripheral vascular disease, unspecified; I48.91 Unspecified atrial fibrillation; Z79.01 Long term (current) use of anticoagulants
CPT/HCPCS: 11042

== ENCOUNTER → 2023-09-21 14:55 | Outpatient (CLI) | payer MEDICARE, SELFPAY ==
[2023-04-21 13:53] VITALS: BMI 27.5
== END ==
LOC: WC 14:56
PROVIDERS: Family Provider Family Medicine; PCP Family Medicine; Referring Provider Podiatrist; Visit Provider Surgery
DX: E11.621 Type 2 diabetes mellitus with foot ulcer (principal); L97.522 Non-pressure chronic ulcer of other part of left foot with fat layer exposed; L84 Corns and callosities; I73.9 Peripheral vascular disease, unspecified; R23.4 Changes in skin texture; I25.10 Atherosclerotic heart disease of native coronary artery without angina pectoris; I48.91 Unspecified atrial fibrillation; J44.9 Chronic obstructive pulmonary disease, unspecified; Z79.01 Long term (current) use of anticoagulants
CPT/HCPCS: 15275; 99213; Q4196

== ENCOUNTER → 2023-09-27 15:09 | Outpatient (CLI) | payer MEDICARE, SELFPAY ==
[2023-04-21 13:53] VITALS: BMI 27.5
== END ==
LOC: WC 15:24
PROVIDERS: Family Provider Family Medicine; PCP Family Medicine; Referring Provider Podiatrist; Visit Provider Surgery
DX: E11.621 Type 2 diabetes mellitus with foot ulcer (principal); L97.522 Non-pressure chronic ulcer of other part of left foot with fat layer exposed; L84 Corns and callosities; I73.9 Peripheral vascular disease, unspecified; I48.91 Unspecified atrial fibrillation; Z79.01 Long term (current) use of anticoagulants
CPT/HCPCS: 15275; 16020; 99213; Q4196

== ENCOUNTER → 2023-10-04 12:44 | Outpatient (CLI) | payer MEDICARE, SELFPAY ==
[2023-04-21 13:53] VITALS: BMI 27.5
== END ==
PROVIDERS: Family Provider Family Medicine; PCP Family Medicine; Referring Provider Podiatrist; Visit Provider Physician Assistant
DX: E11.621 Type 2 diabetes mellitus with foot ulcer (principal); L97.522 Non-pressure chronic ulcer of other part of left foot with fat layer exposed; L84 Corns and callosities; I48.91 Unspecified atrial fibrillation; J44.9 Chronic obstructive pulmonary disease, unspecified; Z79.01 Long term (current) use of anticoagulants; I73.9 Peripheral vascular disease, unspecified
CPT/HCPCS: 15275; 99214; Q4196

== ENCOUNTER → 2023-10-11 14:28 | Outpatient (CLI) | payer MEDICARE, SELFPAY ==
[2023-04-21 13:53] VITALS: BMI 27.5
== END ==
LOC: WC 14:29
PROVIDERS: Family Provider Family Medicine; PCP Family Medicine; Referring Provider Podiatrist; Visit Provider Surgery
DX: E11.621 Type 2 diabetes mellitus with foot ulcer (principal); L97.522 Non-pressure chronic ulcer of other part of left foot with fat layer exposed; I73.9 Peripheral vascular disease, unspecified; L84 Corns and callosities; I48.91 Unspecified atrial fibrillation; Z79.01 Long term (current) use of anticoagulants
CPT/HCPCS: 11042; 87070; 87075; 87147; 87205; 99213

== ENCOUNTER → 2023-10-17 13:17 | Outpatient (CLI) | payer MEDICARE, SELFPAY ==
[2023-04-21 13:53] VITALS: BMI 27.5
[2023-10-17 19:34] LABS: Add Manual Diff / Slide Review NO; Basophils Absolute Auto 100 /uL (0-100); Eosinophils Absolute Auto 200 /uL (0-450); Eosinophils Percent Auto 3.1 % (2-4); Hematocrit 41.7 % (41-53); Hemoglobin 13.5 g/dL (13.5-17.5); Lymphocytes Absolute Auto 900 /uL (1100-4500); Lymphocytes Percent Auto 14.9 % (25-40); Mean Corpuscular HGB Conc 32.4 % (30-36); Mean Corpuscular Hemoglobin 30.9 PG (26-34); Mean Corpuscular Volume 95.2 fL (80-100); Monocytes Absolute Auto 600 /uL (0-900); Monocytes Percent Auto 9.6 % (3-14); Neutrophils Absolute Auto 4400 /uL (1500-7000); Neutrophils Percent Auto 71.4 % (50-75); Platelet Count 155 X10^3/uL (150-400); Red Blood Cell Count 4.38 X10^6/uL (4.5-5.9); Red Cell Distribution Width 17.5 % (11.6-14.8); White Blood Cell Count 6.1 X10^3/uL (4.5-11.0)
[2023-10-17 19:45] LABS: Alanine Aminotransferase 19 IU/L (<50); Albumin 3.8 g/dL (3.5-5.0); Albumin Globulin Ratio 1.7 (1.0-2.8); Alkaline Phosphatase 78 U/L (38-126); Aspartate Aminotransferase 32 IU/L (17-59); BUN Creatinine Ratio 26.4 (6-22); Bilirubin Total 1.4 mg/dL (0.2-1.3); Blood Urea Nitrogen 28 mg/dL (9-20); C-Reactive Protein Quant < 0.5 mg/dL (<1.0); Calcium 8.9 mg/dL (8.4-10.2); Carbon Dioxide 24 mmol/L (22-32); Chloride 109 mmol/L (98-107); Estimated Glomerular Filt Rate > 60 mL/min (>60); Globulin 2.2 g/dL (1.7-4.1); Glucose 140 mg/dL (80-110); HEMOLYSIS 19 (0-50); Hemoglobin A1C% w Est Avg Glu 5.6 % (4.0-6.0); Potassium 3.9 mmol/L (3.4-5.1); Sodium 137 mmol/L (137-145)
[2023-10-17 20:28] LABS: Erythrocyte Sedimentation Rate 5 MM/HR (0-15)
== END ==
PROVIDERS: Family Provider Family Medicine; PCP Family Medicine; Visit Provider Surgery
DX: E11.621 Type 2 diabetes mellitus with foot ulcer (principal); L97.509 Non-pressure chronic ulcer of other part of unspecified foot with unspecified severity
CPT/HCPCS: 80053; 83036; 85025; 85651; 86140

== ENCOUNTER → 2023-10-19 14:44 | Outpatient (CLI) | payer MEDICARE, SELFPAY ==
[2023-04-21 13:53] VITALS: BMI 27.5
== END ==
PROVIDERS: Family Provider Family Medicine; PCP Family Medicine; Referring Provider Podiatrist; Visit Provider Physician Assistant
DX: E11.621 Type 2 diabetes mellitus with foot ulcer (principal); L97.522 Non-pressure chronic ulcer of other part of left foot with fat layer exposed; I73.9 Peripheral vascular disease, unspecified; L84 Corns and callosities; R60.0 Localized edema; I25.10 Atherosclerotic heart disease of native coronary artery without angina pectoris; I48.91 Unspecified atrial fibrillation; J44.9 Chronic obstructive pulmonary disease, unspecified
CPT/HCPCS: 11042; 99213

== ENCOUNTER → 2023-10-19 15:35 | Outpatient (CLI) | payer MEDICARE, SELFPAY ==
[2023-04-21 13:53] VITALS: BMI 27.5
--- NOTE | 2023-10-19 15:38 | DI.MRI.S_ITS ---
PROCEDURE: MR FOOT LT WO/W CON INDICATIONS: non-healing ulcer on left great toe TECHNIQUE: Noncontrast coronal T1 spin echo and STIR, sagittal T1 spin echo with fat saturation and STIR, axial T1 spin echo and T2 fast spin echo with fat saturation. After the administration of contrast, axial/sagittal/coronal T1 spin echo with fat saturation through the left foot. COMPARISON: None. FINDINGS: Image quality: Excellent. Bones: There is extensive marrow edema through 1st distal phalanx and show mild contrast enhancement. Subtle cortical erosion involving plantar cortex of distal 1st distal phalanx is seen. Mild marrow edema is also noted involving distal portion of 1st proximal phalanx adjacent to the 1st interphalangeal joint without gross bony erosive changes or significant contrast enhancement. No acute fracture or dislocation. Moderate midfoot and forefoot joint osteoarthritic changes are seen most notably involving great toe at 1st MTP joint and 1st interphalangeal joint. No signal abnormalities are seen in the sesamoid bones. No other area of abnormal intraosseous enhancement. Soft tissues: Ulceration involving plantar aspect of great toe over the 1st distal phalanx is seen with extensive surrounding soft tissue edema and swelling. No discrete peripherally enhancing fluid collection is noted. Mild edema throughout visualized plantar foot muscle is seen without intramuscular fluid collection or enhancing mass. Extensor and flexor tendons are grossly intact. Lisfranc ligament is intact. IMPRESSION: 1. Ulceration involving medial and plantar aspect of great toe adjacent to 1st distal phalanx with significant forefoot and midfoot cellulitis. No discrete drainable abscess collection. 2. Osteomyelitis involving 1st distal phalanx with subtle plantar medial cortical erosive changes. Possible early osteomyelitis involving 1st proximal phalangeal head and neck region with mild edema. No other area of abnormal marrow signal or enhancement. Midfoot and forefoot joint osteoarthritis. No acute fracture or dislocation. 3. Mild myositis in visualized plantar foot muscles without intramuscular mass or fluid collection. Dictated by: Bry Reyes M.D. on 10/20/2023 at 13:40 Approved by: Bry Reyes M.D. on 10/20/2023 at 13:46
== END ==
LOC: MRI 15:36
PROVIDERS: Family Provider Family Medicine; PCP Family Medicine; Referring Provider Surgery; Visit Provider Surgery
DX: E11.621 Type 2 diabetes mellitus with foot ulcer (principal); L97.529 Non-pressure chronic ulcer of other part of left foot with unspecified severity; L03.116 Cellulitis of left lower limb; E11.69 Type 2 diabetes mellitus with other specified complication; M86.9 Osteomyelitis, unspecified; M19.071 Primary osteoarthritis, right ankle and foot; M60.9 Myositis, unspecified
CPT/HCPCS: 11042; 73720; 99213; A9579

== ENCOUNTER → 2023-10-26 15:09 | Outpatient (CLI) | payer MEDICARE, SELFPAY ==
[2023-04-21 13:53] VITALS: BMI 27.5
== END ==
PROVIDERS: Family Provider Family Medicine; PCP Family Medicine; Referring Provider Podiatrist; Visit Provider Surgery
DX: E11.621 Type 2 diabetes mellitus with foot ulcer (principal); L97.522 Non-pressure chronic ulcer of other part of left foot with fat layer exposed; L84 Corns and callosities; I73.9 Peripheral vascular disease, unspecified; M86.172 Other acute osteomyelitis, left ankle and foot; I48.91 Unspecified atrial fibrillation; Z79.01 Long term (current) use of anticoagulants; Z79.2 Long term (current) use of antibiotics
CPT/HCPCS: 11042; 87070; 87075; 87077; 87186; 87205; 99213

== ENCOUNTER → 2023-11-01 14:32 | Outpatient (CLI) | payer MEDICARE, SELFPAY ==
[2023-04-21 13:53] VITALS: BMI 27.5
== END ==
PROVIDERS: Family Provider Family Medicine; PCP Family Medicine; Referring Provider Podiatrist; Visit Provider Surgery
DX: E11.621 Type 2 diabetes mellitus with foot ulcer (principal); E11.42 Type 2 diabetes mellitus with diabetic polyneuropathy; L97.522 Non-pressure chronic ulcer of other part of left foot with fat layer exposed; L84 Corns and callosities; I73.9 Peripheral vascular disease, unspecified; Z79.01 Long term (current) use of anticoagulants; Z79.2 Long term (current) use of antibiotics
CPT/HCPCS: 11042

== ENCOUNTER → 2023-11-09 12:59 | Outpatient (CLI) | payer MEDICARE, SELFPAY ==
[2023-04-21 13:53] VITALS: BMI 27.5
== END ==
LOC: WC 13:00
PROVIDERS: Family Provider Family Medicine; PCP Family Medicine; Referring Provider Podiatrist; Visit Provider Surgery
DX: L97.522 Non-pressure chronic ulcer of other part of left foot with fat layer exposed (principal); E11.621 Type 2 diabetes mellitus with foot ulcer; L84 Corns and callosities; I73.9 Peripheral vascular disease, unspecified; M86.172 Other acute osteomyelitis, left ankle and foot; E11.42 Type 2 diabetes mellitus with diabetic polyneuropathy; Z79.01 Long term (current) use of anticoagulants; Z79.2 Long term (current) use of antibiotics
CPT/HCPCS: 11042

== ENCOUNTER → 2023-11-23 14:39 | Outpatient (CLI) | payer MEDICARE, SELFPAY ==
[2023-04-21 13:53] VITALS: BMI 27.5
== END ==
PROVIDERS: Family Provider Family Medicine; PCP Family Medicine; Referring Provider Podiatrist; Visit Provider Surgery
DX: E11.621 Type 2 diabetes mellitus with foot ulcer (principal); L97.522 Non-pressure chronic ulcer of other part of left foot with fat layer exposed; R60.0 Localized edema; L84 Corns and callosities; R23.4 Changes in skin texture; I73.9 Peripheral vascular disease, unspecified; I25.10 Atherosclerotic heart disease of native coronary artery without angina pectoris; Z79.01 Long term (current) use of anticoagulants
CPT/HCPCS: 11042; 99213

== ENCOUNTER → 2023-11-30 15:02 | Outpatient (CLI) | payer MEDICARE, SELFPAY ==
[2023-04-21 13:53] VITALS: BMI 27.5
== END ==
LOC: WC 15:02
PROVIDERS: Family Provider Family Medicine; PCP Family Medicine; Referring Provider Podiatrist; Visit Provider Surgery
DX: E11.621 Type 2 diabetes mellitus with foot ulcer (principal); L97.522 Non-pressure chronic ulcer of other part of left foot with fat layer exposed; L84 Corns and callosities; M86.172 Other acute osteomyelitis, left ankle and foot; Z79.01 Long term (current) use of anticoagulants; Z79.2 Long term (current) use of antibiotics
CPT/HCPCS: 11042

== ENCOUNTER → 2023-12-07 15:31 | Outpatient (CLI) | payer MEDICARE, SELFPAY ==
[2023-04-21 13:53] VITALS: BMI 27.5
== END ==
PROVIDERS: Family Provider Family Medicine; PCP Family Medicine; Referring Provider Podiatrist; Visit Provider Nurse Practitioner Family
DX: E11.621 Type 2 diabetes mellitus with foot ulcer (principal); L97.522 Non-pressure chronic ulcer of other part of left foot with fat layer exposed; L84 Corns and callosities; R23.4 Changes in skin texture; I73.9 Peripheral vascular disease, unspecified; M86.172 Other acute osteomyelitis, left ankle and foot; Z79.01 Long term (current) use of anticoagulants; Z79.899 Other long term (current) drug therapy
CPT/HCPCS: 11042

== ENCOUNTER → 2023-12-13 15:32 | Outpatient (CLI) | payer MEDICARE, SELFPAY ==
[2023-04-21 13:53] VITALS: BMI 27.5
== END ==
LOC: WC 15:32
PROVIDERS: Family Provider Family Medicine; PCP Family Medicine; Referring Provider Podiatrist; Visit Provider Surgery
DX: E11.621 Type 2 diabetes mellitus with foot ulcer (principal); E11.42 Type 2 diabetes mellitus with diabetic polyneuropathy; L97.522 Non-pressure chronic ulcer of other part of left foot with fat layer exposed; L84 Corns and callosities; I73.9 Peripheral vascular disease, unspecified; R23.4 Changes in skin texture; M86.172 Other acute osteomyelitis, left ankle and foot; Z79.01 Long term (current) use of anticoagulants; Z79.2 Long term (current) use of antibiotics
CPT/HCPCS: 11042

== ENCOUNTER → 2023-12-16 15:11 | Outpatient (CLI) | payer MEDICARE, SELFPAY ==
[2023-04-21 13:53] VITALS: BMI 27.5
== END ==
LOC: WC 15:11
PROVIDERS: Family Provider Family Medicine; PCP Family Medicine; Referring Provider Podiatrist; Visit Provider Physician Assistant
DX: E11.621 Type 2 diabetes mellitus with foot ulcer (principal); L97.522 Non-pressure chronic ulcer of other part of left foot with fat layer exposed; L84 Corns and callosities; R23.4 Changes in skin texture
CPT/HCPCS: 99213

== ENCOUNTER → 2023-12-21 14:34 | Outpatient (CLI) | payer MEDICARE, SELFPAY ==
[2023-04-21 13:53] VITALS: BMI 27.5
== END ==
LOC: WC 14:35
PROVIDERS: Family Provider Family Medicine; PCP Family Medicine; Referring Provider Podiatrist; Visit Provider Surgery
DX: E11.621 Type 2 diabetes mellitus with foot ulcer (principal); E11.628 Type 2 diabetes mellitus with other skin complications; L97.522 Non-pressure chronic ulcer of other part of left foot with fat layer exposed; L89.322 Pressure ulcer of left buttock, stage 2; E11.51 Type 2 diabetes mellitus with diabetic peripheral angiopathy without gangrene; M86.172 Other acute osteomyelitis, left ankle and foot; L84 Corns and callosities; R23.4 Changes in skin texture
CPT/HCPCS: 11042; 99213

== ENCOUNTER → 2023-12-28 14:59 | Outpatient (CLI) | payer MEDICARE, SELFPAY ==
[2023-04-21 13:53] VITALS: BMI 27.5
== END ==
PROVIDERS: Family Provider Family Medicine; PCP Family Medicine; Referring Provider Podiatrist; Visit Provider Surgery
DX: E11.621 Type 2 diabetes mellitus with foot ulcer (principal); L97.522 Non-pressure chronic ulcer of other part of left foot with fat layer exposed; L84 Corns and callosities; L89.322 Pressure ulcer of left buttock, stage 2; L53.9 Erythematous condition, unspecified; M86.172 Other acute osteomyelitis, left ankle and foot; Z79.01 Long term (current) use of anticoagulants
CPT/HCPCS: 11042

== ENCOUNTER → 2024-01-04 14:35 | Outpatient (CLI) | payer MEDICARE, SELFPAY ==
[2023-04-21 13:53] VITALS: BMI 27.5
== END ==
PROVIDERS: Family Provider Family Medicine; PCP Family Medicine; Referring Provider Podiatrist; Visit Provider Surgery
DX: E11.621 Type 2 diabetes mellitus with foot ulcer (principal); L97.522 Non-pressure chronic ulcer of other part of left foot with fat layer exposed; L84 Corns and callosities; I73.9 Peripheral vascular disease, unspecified; M86.172 Other acute osteomyelitis, left ankle and foot; Z79.01 Long term (current) use of anticoagulants
CPT/HCPCS: 11042

== ENCOUNTER → 2024-01-11 15:47 | Outpatient (CLI) | payer MEDICARE, SELFPAY ==
[2023-04-21 13:53] VITALS: BMI 27.5
== END ==
LOC: WC 15:48
PROVIDERS: Family Provider Family Medicine; PCP Family Medicine; Referring Provider Podiatrist; Visit Provider Surgery
DX: E11.621 Type 2 diabetes mellitus with foot ulcer (principal); L97.522 Non-pressure chronic ulcer of other part of left foot with fat layer exposed; L84 Corns and callosities; M86.172 Other acute osteomyelitis, left ankle and foot; Z79.01 Long term (current) use of anticoagulants
CPT/HCPCS: 11042

== ENCOUNTER → 2024-01-18 14:54 | Outpatient (CLI) | payer MEDICARE, SELFPAY ==
[2023-04-21 13:53] VITALS: BMI 27.5
== END ==
LOC: WC 14:54
PROVIDERS: Family Provider Family Medicine; PCP Family Medicine; Referring Provider Podiatrist; Visit Provider Surgery
DX: E11.621 Type 2 diabetes mellitus with foot ulcer (principal); L97.522 Non-pressure chronic ulcer of other part of left foot with fat layer exposed; L84 Corns and callosities; R23.4 Changes in skin texture; R60.0 Localized edema; M86.172 Other acute osteomyelitis, left ankle and foot; Z79.01 Long term (current) use of anticoagulants; I73.9 Peripheral vascular disease, unspecified; I25.10 Atherosclerotic heart disease of native coronary artery without angina pectoris
CPT/HCPCS: 15275; 99213; Q4159

== ENCOUNTER → 2024-01-23 14:02 | Outpatient (CLI) | payer MEDICARE, SELFPAY ==
[2023-04-21 13:53] VITALS: BMI 27.5
[2024-01-23 19:42] LABS: BUN Creatinine Ratio 32.4 (6-22); Blood Urea Nitrogen 36 mg/dL (9-20); Calcium 9.1 mg/dL (8.4-10.2); Carbon Dioxide 21 mmol/L (22-32); Chloride 104 mmol/L (98-107); Estimated Glomerular Filt Rate > 60 mL/min (>60); Glucose 99 mg/dL (80-110); HEMOLYSIS < 15 (0-50); Potassium 3.8 mmol/L (3.4-5.1); Sodium 132 mmol/L (137-145)
[2024-01-23 19:45] LABS: Add Manual Diff / Slide Review NO; Basophils Absolute Auto 100 /uL (0-100); Basophils Percent Auto 1.2 % (0-2); Eosinophils Absolute Auto 100 /uL (0-450); Eosinophils Percent Auto 2.3 % (2-4); Hematocrit 36.7 % (41-53); Hemoglobin 12.1 g/dL (13.5-17.5); Lymphocytes Absolute Auto 1100 /uL (1100-4500); Lymphocytes Percent Auto 19.1 % (25-40); Mean Corpuscular HGB Conc 32.8 % (30-36); Mean Corpuscular Volume 94.5 fL (80-100); Monocytes Absolute Auto 700 /uL (0-900); Monocytes Percent Auto 12.6 % (3-14); Neutrophils Absolute Auto 3600 /uL (1500-7000); Neutrophils Percent Auto 64.8 % (50-75); Platelet Count 198 X10^3/uL (150-400); Red Blood Cell Count 3.89 X10^6/uL (4.5-5.9); Red Cell Distribution Width 18.1 % (11.6-14.8); White Blood Cell Count 5.6 X10^3/uL (4.5-11.0)
[2024-01-23 19:48] LABS: NT-proBNP (BNP-Adult 18+) 4350 pg/mL (<450)
== END ==
PROVIDERS: Family Provider Family Medicine; PCP Family Medicine; Visit Provider Internal Medicine Cardiovascular Disease
DX: R07.9 Chest pain, unspecified (principal); M79.601 Pain in right arm; M79.602 Pain in left arm; Z79.01 Long term (current) use of anticoagulants; I50.32 Chronic diastolic (congestive) heart failure
CPT/HCPCS: 80048; 83880; 85025

== ENCOUNTER → 2024-01-25 15:00 | Outpatient (CLI) | payer MEDICARE, SELFPAY ==
[2023-04-21 13:53] VITALS: BMI 27.5
== END ==
LOC: WC 15:06
PROVIDERS: Family Provider Family Medicine; PCP Family Medicine; Referring Provider Podiatrist; Visit Provider Surgery
DX: E11.621 Type 2 diabetes mellitus with foot ulcer (principal); L97.522 Non-pressure chronic ulcer of other part of left foot with fat layer exposed; L84 Corns and callosities; R23.4 Changes in skin texture; M86.172 Other acute osteomyelitis, left ankle and foot; Z79.01 Long term (current) use of anticoagulants
CPT/HCPCS: 15275; Q4159

== ENCOUNTER → 2024-02-01 15:03 | Outpatient (CLI) | payer MEDICARE, SELFPAY ==
[2023-04-21 13:53] VITALS: BMI 27.5
== END ==
PROVIDERS: Family Provider Family Medicine; PCP Family Medicine; Referring Provider Podiatrist; Visit Provider Surgery
DX: E11.621 Type 2 diabetes mellitus with foot ulcer (principal); L97.522 Non-pressure chronic ulcer of other part of left foot with fat layer exposed; L84 Corns and callosities; R23.4 Changes in skin texture; M86.172 Other acute osteomyelitis, left ankle and foot; Z79.01 Long term (current) use of anticoagulants
CPT/HCPCS: 15275; Q4159

== ENCOUNTER → 2024-02-07 11:22 | Outpatient (CLI) | payer MEDICARE, SELFPAY ==
[2023-04-21 13:53] VITALS: BMI 27.5
== END ==
PROVIDERS: Family Provider Family Medicine; PCP Family Medicine; Referring Provider Family Medicine; Visit Provider Surgery
DX: E11.621 Type 2 diabetes mellitus with foot ulcer (principal); E11.42 Type 2 diabetes mellitus with diabetic polyneuropathy; L97.522 Non-pressure chronic ulcer of other part of left foot with fat layer exposed; L84 Corns and callosities; Z79.01 Long term (current) use of anticoagulants; M86.172 Other acute osteomyelitis, left ankle and foot
CPT/HCPCS: 15275; Q4159

== ENCOUNTER → 2024-02-14 15:20 | Outpatient (CLI) | payer MEDICARE, SELFPAY ==
[2023-04-21 13:53] VITALS: BMI 27.5
== END ==
LOC: WC 15:20
PROVIDERS: Family Provider Family Medicine; PCP Family Medicine; Referring Provider Podiatrist; Visit Provider Surgery
DX: E11.621 Type 2 diabetes mellitus with foot ulcer (principal); E11.42 Type 2 diabetes mellitus with diabetic polyneuropathy; L97.522 Non-pressure chronic ulcer of other part of left foot with fat layer exposed; L84 Corns and callosities; M86.172 Other acute osteomyelitis, left ankle and foot; Z79.01 Long term (current) use of anticoagulants
CPT/HCPCS: 15275; Q4159

== ENCOUNTER → 2024-02-21 14:35 | Outpatient (CLI) | payer MEDICARE, SELFPAY ==
[2023-04-21 13:53] VITALS: BMI 27.5
== END ==
LOC: WC 14:35
PROVIDERS: Family Provider Family Medicine; PCP Family Medicine; Referring Provider Podiatrist; Visit Provider Surgery
DX: E11.621 Type 2 diabetes mellitus with foot ulcer (principal); L97.522 Non-pressure chronic ulcer of other part of left foot with fat layer exposed; L84 Corns and callosities; Z79.01 Long term (current) use of anticoagulants; I73.9 Peripheral vascular disease, unspecified; I25.10 Atherosclerotic heart disease of native coronary artery without angina pectoris
CPT/HCPCS: 11042; 99213

== ENCOUNTER → 2024-02-28 14:36 | Outpatient (CLI) | payer MEDICARE, SELFPAY ==
[2023-04-21 13:53] VITALS: BMI 27.5
== END ==
LOC: WC 14:36
PROVIDERS: Family Provider Family Medicine; PCP Family Medicine; Referring Provider Podiatrist; Visit Provider Surgery
DX: L97.522 Non-pressure chronic ulcer of other part of left foot with fat layer exposed (principal); E11.621 Type 2 diabetes mellitus with foot ulcer; L84 Corns and callosities; I73.9 Peripheral vascular disease, unspecified; M86.172 Other acute osteomyelitis, left ankle and foot; Z79.01 Long term (current) use of anticoagulants
CPT/HCPCS: 11042

== ENCOUNTER → 2024-03-06 15:25 | Outpatient (CLI) | payer MEDICARE, SELFPAY ==
[2023-04-21 13:53] VITALS: BMI 27.5
== END ==
LOC: WC 15:28
PROVIDERS: Family Provider Family Medicine; PCP Family Medicine; Referring Provider Podiatrist; Visit Provider Surgery
DX: E11.621 Type 2 diabetes mellitus with foot ulcer (principal); L97.522 Non-pressure chronic ulcer of other part of left foot with fat layer exposed; L84 Corns and callosities; I73.9 Peripheral vascular disease, unspecified; M86.172 Other acute osteomyelitis, left ankle and foot; Z79.01 Long term (current) use of anticoagulants
CPT/HCPCS: 11042

== ENCOUNTER → 2024-03-13 15:29 | Outpatient (CLI) | payer MEDICARE, SELFPAY ==
[2023-04-21 13:53] VITALS: BMI 27.5
== END ==
LOC: WC 15:29
PROVIDERS: Family Provider Family Medicine; PCP Family Medicine; Referring Provider Podiatrist; Visit Provider Surgery
DX: E11.621 Type 2 diabetes mellitus with foot ulcer (principal); E11.42 Type 2 diabetes mellitus with diabetic polyneuropathy; L97.522 Non-pressure chronic ulcer of other part of left foot with fat layer exposed; L84 Corns and callosities; Z79.01 Long term (current) use of anticoagulants
CPT/HCPCS: 11042

== ENCOUNTER → 2024-03-20 14:15 | Outpatient (CLI) | payer MEDICARE, SELFPAY ==
[2023-04-21 13:53] VITALS: BMI 27.5
== END ==
PROVIDERS: Family Provider Family Medicine; PCP Family Medicine; Referring Provider Podiatrist; Visit Provider Surgery
DX: E11.621 Type 2 diabetes mellitus with foot ulcer (principal); L97.522 Non-pressure chronic ulcer of other part of left foot with fat layer exposed; L84 Corns and callosities; M86.172 Other acute osteomyelitis, left ankle and foot; I25.10 Atherosclerotic heart disease of native coronary artery without angina pectoris; I73.9 Peripheral vascular disease, unspecified; Z79.01 Long term (current) use of anticoagulants
CPT/HCPCS: 11042; 99213

== ENCOUNTER → 2024-03-27 10:51 | Outpatient (CLI) | payer MEDICARE, SELFPAY ==
[2023-04-21 13:53] VITALS: BMI 27.5
[2024-03-27 11:42] LABS: Hematocrit 35.4 % (41-53); Hemoglobin 11.3 g/dL (13.5-17.5); Mean Corpuscular HGB Conc 31.8 % (30-36); Mean Corpuscular Hemoglobin 30.9 PG (26-34); Mean Corpuscular Volume 96.9 fL (80-100); Platelet Count 178 X10^3/uL (150-400); Red Blood Cell Count 3.65 X10^6/uL (4.5-5.9); Red Cell Distribution Width 19.5 % (11.6-14.8); White Blood Cell Count 8.4 X10^3/uL (4.5-11.0)
[2024-03-27 11:44] LABS: Add Manual Diff / Slide Review YES
[2024-03-27 11:56] LABS: Neutrophils Absolute Manual 6384 /uL (3000-5900); Total Cells Counted 100
[2024-03-27 11:57] LABS: Anisocytosis 2+; BUN Creatinine Ratio 21.7 (6-22); Blood Urea Nitrogen 25 mg/dL (9-20); Calcium 8.9 mg/dL (8.4-10.2); Carbon Dioxide 17 mmol/L (22-32); Chloride 104 mmol/L (98-107); Estimated Glomerular Filt Rate > 60 mL/min (>60); Glucose 94 mg/dL (80-110); HEMOLYSIS 17 (0-50); Macrocytosis 2+; Potassium 3.6 mmol/L (3.4-5.1); Sodium 131 mmol/L (137-145)
[2024-03-27 12:06] LABS: NT-proBNP (BNP-Adult 18+) 5840 pg/mL (<450)
== END ==
PROVIDERS: Family Provider Family Medicine; PCP Family Medicine; Referring Provider Internal Medicine Cardiovascular Disease; Visit Provider Internal Medicine Cardiovascular Disease
DX: R07.89 Other chest pain (principal); R06.09 Other forms of dyspnea; I48.11 Longstanding persistent atrial fibrillation
CPT/HCPCS: 36415; 80048; 83880; 85007; 85025

== ENCOUNTER → 2024-04-03 14:50 | Outpatient (CLI) | payer MEDICARE, SELFPAY ==
[2023-04-21 13:53] VITALS: BMI 27.5
== END ==
PROVIDERS: Family Provider Family Medicine; PCP Family Medicine; Referring Provider Podiatrist; Visit Provider Surgery
DX: E11.621 Type 2 diabetes mellitus with foot ulcer (principal); L97.522 Non-pressure chronic ulcer of other part of left foot with fat layer exposed; L84 Corns and callosities; M86.172 Other acute osteomyelitis, left ankle and foot; L98.8 Other specified disorders of the skin and subcutaneous tissue; S51.802A Unspecified open wound of left forearm, initial encounter; Z79.01 Long term (current) use of anticoagulants; R60.0 Localized edema
CPT/HCPCS: 11042; 99213

== ENCOUNTER → 2024-04-10 15:32 | Outpatient (CLI) | payer MEDICARE, SELFPAY ==
[2023-04-21 13:53] VITALS: BMI 27.5
== END ==
PROVIDERS: Family Provider Family Medicine; PCP Family Medicine; Referring Provider Podiatrist; Visit Provider Surgery
DX: E11.621 Type 2 diabetes mellitus with foot ulcer (principal); L97.522 Non-pressure chronic ulcer of other part of left foot with fat layer exposed; L97.512 Non-pressure chronic ulcer of other part of right foot with fat layer exposed; L84 Corns and callosities; S51.812A Laceration without foreign body of left forearm, initial encounter; R60.0 Localized edema; M86.172 Other acute osteomyelitis, left ankle and foot; Z79.01 Long term (current) use of anticoagulants
CPT/HCPCS: 11042; 97597; 99213

== ENCOUNTER 2024-04-11 08:37 | Inpatient (IN) | payer MEDICARE, SELFPAY ==
[2023-04-21 13:53] VITALS: BMI 27.5
[2024-04-11] VITALS (34 sets, daily range): BP systolic 90–130; BP diastolic 53–76; PULSE 97–218; RESP 11–30; TEMP 36.6–37.1; O2SAT 85–100; BMI 23.6; BMI 24.2
--- NOTE | 2024-04-11 08:40 | DI.RAD.S_ITS ---
PROCEDURE: XR CHEST 1V INDICATIONS: Shortness of breath TECHNIQUE: One view of the chest was acquired. COMPARISON: [facility], CR, XR CHEST 1V, 11/23/2022, 23:17. FINDINGS: Surgical changes and devices: None. Lungs and pleura: Trace bilateral pleural effusion with blunting of bilateral costophrenic angles. Chronic elevation of left hemidiaphragm unchanged from prior study. No definite focal infiltrate. No pneumothorax. Mediastinum: Mediastinal contours appear normal. Heart size is enlarged. Bones and chest wall: No suspicious bony lesions. Overlying soft tissues appear unremarkable. IMPRESSION: Trace bilateral pleural effusion. No definite focal infiltrate. No pneumothorax. Dictated by: Bry Reyes M.D. on 04/11/2024 at 9:01 Approved by: Bry Reyes M.D. on 04/11/2024 at 9:06
--- NOTE | 2024-04-11 08:40 | EKG_ITS ---
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
--- NOTE | 2024-04-11 08:55 | ED_ITS ---
HPI - General Adult General Chief complaint: Shortness of Breath/Dyspnea Stated complaint: SOB, Dizzy Time Seen by Provider: 04/11/24 08:44 History of Present Illness HPI narrative: 88-year-old gentleman with a history of centrilobular emphysema, atrial fibrillation, he is anticoagulated, pulmonary hypotension, coronary artery disease, congestive heart failure diagnosis of both hypertension and intermittent episodes of hypotension and patient notes that medications have been change to try to address that recently. He has a lower extremity ulcer/osteomyelitis that is seen by Infectious Disease at [facility], he is currently on doxycycline seen by wound care and feels the wound is improving. He presents today by medics. Apparently he lives on [facility] they came over yesterday in anticipation of the scheduled outpatient physician appointment today and he was so dizzy when he woke up that he was unable to get out of bed. He states that this is not unusual for him. He does not feel that he is significantly off from his baseline, does not report increasing cough, palpitations, chest pain, dyspnea, lower extremity edema, left foot is in a wound care dressing with productive walking boot in place Medication changes: Lasix and spironolactone. Continues on doxycycline Restarted metoprolol tartrate 12.5 mg once daily on March 29 Has not yet started Entresto Added diltiazem 120 mg according to the , 5 days ago with all of his symptoms worsening after that Eliquis 5 mg Related Data Home Medications Medication Instructions Recorded Confirmed multivitamin (One Daily 1 tab PO 1200 05/04/18 04/11/24 Multivitamin tablet) albuterol sulfate 90 mcg/actuation 2 puff inhalation Q4H PRN 11/07/20 04/11/24 aerosol inhaler shortness of breath or wheezing acetaminophen 500 mg tablet 1,000 mg PO TID PRN Pain (Scale 08/25/21 04/11/24 (Tylenol Extra Strength) Score 1-3) folic acid 800 mcg tablet 800 mcg PO 1200 11/30/22 04/11/24 leflunomide 20 mg tablet 20 mg PO DAILY 02/28/23 04/11/24 cholecalciferol (vitamin D3) 25 25 mcg PO 1200 04/05/23 04/11/24 mcg (1,000 unit) capsule doxycycline hyclate 100 mg capsule 100 mg PO BID 03/30/24 04/11/24 metoprolol tartrate 25 mg tablet 12.5 mg PO BID 03/30/24 04/11/24 ipratropium bromide 42 mcg (0.06 2 spray intranasal BID allergy 04/11/24 04/11/24 %) nasal spray vitamin B complex 1 tab PO 1200 04/11/24 04/11/24 Previous Rx's Medication Instructions Recorded apixaban 5 mg tablet (Eliquis) 5 mg PO BID Atrial fibrillation 02/08/22 CVA #180 tabs allopurinol 300 mg tablet 300 mg PO DAILY #90 tabs 06/30/23 lovastatin 40 mg tablet 40 mg PO QPM #90 tabs 07/20/23 tamsulosin 0.4 mg capsule (Flomax) 0.8 mg (2 x 0.4 mg) PO QPM #180 07/20/23 caps budesonide-formoterol HFA 80 2 inh PO BID #30.9 grams 10/04/23 mcg-4.5 mcg/actuation aerosol inhaler (Breyna) finasteride 5 mg tablet 5 mg PO DAILY #90 tabs 02/08/24 famotidine 40 mg tablet (Pepcid) 40 mg PO BEDTIME #90 tabs 02/20/24 gabapentin 100 mg capsule 100 mg PO TID #270 caps 03/12/24 Allergies Allergy/AdvReac Type Severity Reaction Status Date / Time latex [LATEX] Allergy Mild Rash Verified 03/30/24 15:41 olmesartan AdvReac Severe Dizziness Verified 03/30/24 15:41 levofloxacin AdvReac Intermediate Muscle Pain Verified 03/30/24 15:41 Review of Systems Review of Systems Narrative: Pertinent positive and negative findings as per HPI Patient History Medical History 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 Rheumatoid arthritis Sequela of lacunar infarction COPD (chronic obstructive pulmonary disease) Ankle pain Mumps Measles Chicken pox Hemorrhoid Anticoagulation goal of INR 2 to 3 Age related cataract Pericarditis Cholelithiasis Polymyalgia rheumatica History of tobacco use Obesity History of gastric ulcer Hyperlipidemia Hypertension Gout Chronic anticoagulation Atrial fibrillation Surgical History Anesthesia History of ankle surgery (~1965) History of appendectomy (~2018) History of tonsillectomy (~1944) History of cataract removal with insertion of prosthetic lens History of laparotomy (~1999) Family History Mother Hypertension Heart disease Diabetes mellitus Hyperlipidemia Father Hypertension Hyperlipidemia Grandmother Pneumonia Social History marital status: household members: spouse occupational status: previously employed Smoking Status: Former smoker alcohol intake: current substance use type: does not use Smoking Status: Former smoker (Quit 40- 50 years ago) alcohol intake frequency: holidays/special occasions only Substance Use Type: does not use Exam Initial Vital Signs Initial Vital Signs: Vital Signs Temperature 98.7 F 04/11/24 09:01 Pulse Rate 115 H 04/11/24 09:01 Respiratory Rate 22 04/11/24 09:01 Blood Pressure 109/67 04/11/24 09:01 Pulse Oximetry 91 04/11/24 09:01 Oxygen Delivery Method Oximask 04/11/24 09:01 Oxygen Flow Rate 6 04/11/24 09:01 General: Frail-appearing in no acute distress. Able to give a complete and coherent history. Well-nourished well-developed HEENT: Moist mucous membranes, normal sclera with reactive pupils, Neck: No JVD, supple Respiratory: Lungs are clear to auscultation, no wheezing no rales no rhonchi. Full and symmetrical air movement Cardiac: Irregular, slightly tachycardic no obvious murmurs Abdomen: Soft, nontender, good bowel tones, no flank pain Skin: Thin, multiple bruises from his chronic anticoagulation Neurologic: Significantly globally weak but otherwise Grossly neurologically intact with no obvious asymmetries or abnormalities Extremities: Walking boot and wound care dressing in place left foot Psych: Cooperative, appropriate insight and affect Course Orders Ordered: ED Orders 04/11/24 11:30 MRSA (Nasal) PCR Urgent Acetaminophen (Acetaminophen 325 Mg Tablet) 650 mg PO Q6H PRN PRN Reason: Fever/Mild Pain (1-3) Last Admin: 04/11/24 15:35 Dose: 650 mg Documented By: SHASHA Albuterol (Albuterol 2.5 Mg/3 Ml Neb (Adult)) 2.5 mg INH Q4H PRN PRN Reason: shortness of breath or wheezing Allopurinol (Allopurinol 100 Mg Tablet) 300 mg PO DAILY [facility] Apixaban (Apixaban 5 Mg Tablet) 5 mg PO BID [facility] Last Admin: 04/11/24 15:35 Dose: 5 mg Documented By: SHASHA Doxycycline Hyclate (Doxycycline Hyclate 100 Mg Tablet) 100 mg PO BID [facility] Last Admin: 04/11/24 15:34 Dose: 100 mg Documented By: SHASHA Finasteride (Finasteride 5 Mg Tablet) 5 mg PO BEDTIME [facility] Gabapentin (Gabapentin 100 Mg Capsule) 100 mg PO TID [facility] Last Admin: 04/11/24 15:35 Dose: 100 mg Documented By: SHASHA Amiodarone HCl/Dextrose (Nexterone) 360 mg in 200 mls @ 16.7 mls/hr IV CONT [facility]; Protocol Stop: 04/12/24 04:14 Last Admin: 04/11/24 16:34 Dose: 0.5 mg/min, 16.667 mls/hr Documented By: SHASHA Multivitamins (Multivitamin 1 Tablet) 1 tab PO 1200 [place] Naloxone HCl (Naloxone 0.4 Mg/Ml Vial) 0.2 mg IV Q2MIN PRN PRN Reason: Opiate Reversal Tamsulosin HCl (Tamsulosin 0.4 Mg Capsule) 0.8 mg PO BEDTIME [facility] Discontinued Medications Finasteride (Finasteride 5 Mg Tablet) 5 mg PO DAILY [facility] Last Admin: 04/11/24 14:25 Dose: Not Given Documented By: SHASHA Amiodarone HCl/Dextrose (Nexterone) 360 mg in 200 mls @ 33.333 mls/hr IV NOW ONE; Protocol Stop: 04/11/24 16:13 Last Titration: 04/11/24 18:49 Dose: Infused Documented By: Titration: 04/11/24 11:16 Dose: 33.33 mls/hr, 33.33 mls/hr Documented By: Admin: 04/11/24 11:02 Dose: 33.33 mls/hr, 33.33 mls/hr Documented By: MPO Tamsulosin HCl (Tamsulosin 0.4 Mg Capsule) 0.8 mg PO QPM [facility] Last Admin: 04/11/24 17:29 Dose: Not Given Documented By: SHASHA Vital Signs Vital signs: Vital Signs - 8 hr 04/11/24 10:55 04/11/24 10:55 04/11/24 11:00 Pulse Rate 109 H Respiratory Rate 16 Blood Pressure 117/70 112/63 Pulse Oximetry 95 Oxygen Flow Rate 04/11/24 11:00 04/11/24 11:05 04/11/24 11:05 Pulse Rate 109 H 106 H Respiratory Rate 12 12 Blood Pressure 123/72 Pulse Oximetry 93 90 L Oxygen Flow Rate 04/11/24 11:10 04/11/24 11:10 04/11/24 11:15 Pulse Rate 105 H 108 H Respiratory Rate 11 L 12 Blood Pressure 118/61 Pulse Oximetry 90 L 85 L Oxygen Flow Rate 04/11/24 11:15 04/11/24 11:30 04/11/24 12:00 Pulse Rate 111 H Respiratory Rate Blood Pressure 116/63 112/67 Pulse Oximetry 98 Oxygen Flow Rate 04/11/24 12:00 04/11/24 12:30 04/11/24 12:30 Pulse Rate 122 H 106 H Respiratory Rate 19 19 Blood Pressure Pulse Oximetry 98 98 95 Oxygen Flow Rate 0 04/11/24 12:31 04/11/24 12:31 Pulse Rate 103 H Respiratory Rate 19 Blood Pressure 125/67 Pulse Oximetry 98 Oxygen Flow Rate Medical Decision Making Lab Data 04/11/24 08:38 04/11/24 08:38 Labs: Lab Results 04/11/24 04/11/24 04/11/24 Range/Units 08:38 09:31 10:42 WBC 6.3 (4.5-11.0) X10^3/uL RBC 3.29 L (4.5-5.9) X10^6/uL Hgb 10.3 L (13.5-17.5) g/dL Hct 32.1 L (41-53) % MCV 97.4 (80-100) fL MCH 31.2 (26-34) PG MCHC 32.0 (30-36) % RDW 20.0 H (11.6-14.8) % Plt Count 143 L (150-400) X10^3/uL Neut % (Auto) 73.3 (50-75) % Lymph % (Auto) 14.0 L (25-40) % Fergus % (Auto) 11.0 (3-14) % Eos % (Auto) 0.9 L (2-4) % Baso % (Auto) 0.8 (0-2) % Neut # (Auto) 4600 (9366-1784) /uL Lymph # (Auto) 900 L (8865-4029) /uL Fergus # (Auto) 700 (0-900) /uL Eos # (Auto) 100 (0-450) /uL Baso # (Auto) 0 (0-100) /uL PT 19.9 H (9.4-12.5) SECONDS INR 1.8 H (0.9-1.3) Sodium 134 L (137-145) mmol/L Potassium 3.5 (3.4-5.1) mmol/L Chloride 109 H (98-107) mmol/L Carbon Dioxide 20 L (22-32) mmol/L BUN 28 H (9-20) mg/dL Creatinine 1.05 (0.66-1.25) mg/dL Estimated GFR > 60 (>60) mL/min BUN/Creatinine Ratio 26.7 H (6-22) Glucose 87 (80-110) mg/dL Lactate 2.5 H 1.6 (0.7-2.1) mmol/L Calcium 8.8 (8.4-10.2) mg/dL Total Bilirubin 1.1 (0.2-1.3) mg/dL AST 38 (17-59) IU/L ALT 25 (<50) IU/L Alkaline Phosphatase 96 (38-126) U/L Troponin I < 0.012 (0.01-0.034) ng/mL NT-Pro-B Natriuret Pep 4280 H (<450) pg/mL Total Protein 5.4 L (6.3-8.2) g/dL Albumin 2.8 L (3.5-5.0) g/dL Globulin 2.6 (1.7-4.1) g/dL Albumin/Globulin Ratio 1.1 (1.0-2.8) Nasal Screen MRSA (PCR) (Not Detect) Chlamy pneumoniae PCR Not detected (Not Detect) Adenovirus (PCR) Not detected (Not Detect) B. pertussis DNA (PCR) Not detected (Not Detect) B.parapertussis DNA PCR Not detected (Not Detecte) Coronavirus OC43 (PCR) Not detected (Not Detect) Coronavirus HKU1 (PCR) Not detected (Not Detect) Coronavirus 229E (PCR) Not detected (Not Detect) SARS-CoV-2 (PCR) Not detected (Not Detecte) Coronavirus NL63 (PCR) Not detected (Not Detect) Human Metapneumovir PCR Not detected (Not Detect) Influenza Type A (PCR) Not detected (Not Detect) Influenza Type B (PCR) Not detected (Not Detect) M. pneumoniae (PCR) Not detected (Not Detect) Parainfluenza 1 (PCR) Not detected (Not Detect) Parainfluenza 2 (PCR) Not detected (Not Detect) Parainfluenza 3 (PCR) Not detected (Not Detect) Parainfluenza 4 (PCR) Not detected (Not Detect) RSV (PCR) Not detected (Not Detect) Entero/Rhino (PCR) Not detected (Not Detect) 04/11/24 Range/Units 11:30 WBC (4.5-11.0) X10^3/uL RBC (4.5-5.9) X10^6/uL Hgb (13.5-17.5) g/dL Hct (41-53) % MCV (80-100) fL MCH (26-34) PG MCHC (30-36) % RDW (11.6-14.8) % Plt Count (150-400) X10^3/uL Neut % (Auto) (50-75) % Lymph % (Auto) (25-40) % Fergus % (Auto) (3-14) % Eos % (Auto) (2-4) % Baso % (Auto) (0-2) % Neut # (Auto) (5021-1975) /uL Lymph # (Auto) (3797-4215) /uL Fergus # (Auto) (0-900) /uL Eos # (Auto) (0-450) /uL Baso # (Auto) (0-100) /uL PT (9.4-12.5) SECONDS INR (0.9-1.3) Sodium (137-145) mmol/L Potassium (3.4-5.1) mmol/L Chloride (98-107) mmol/L Carbon Dioxide (22-32) mmol/L BUN (9-20) mg/dL Creatinine (0.66-1.25) mg/dL Estimated GFR (>60) mL/min BUN/Creatinine Ratio (6-22) Glucose (80-110) mg/dL Lactate (0.7-2.1) mmol/L Calcium (8.4-10.2) mg/dL Total Bilirubin (0.2-1.3) mg/dL AST (17-59) IU/L ALT (<50) IU/L Alkaline Phosphatase (38-126) U/L Troponin I (0.01-0.034) ng/mL NT-Pro-B Natriuret Pep (<450) pg/mL Total Protein (6.3-8.2) g/dL Albumin (3.5-5.0) g/dL Globulin (1.7-4.1) g/dL Albumin/Globulin Ratio (1.0-2.8) Nasal Screen MRSA (PCR) Not detected (Not Detect) Chlamy pneumoniae PCR (Not Detect) Adenovirus (PCR) (Not Detect) B. pertussis DNA (PCR) (Not Detect) B.parapertussis DNA PCR (Not Detecte) Coronavirus OC43 (PCR) (Not Detect) Coronavirus HKU1 (PCR) (Not Detect) Coronavirus 229E (PCR) (Not Detect) SARS-CoV-2 (PCR) (Not Detecte) Coronavirus NL63 (PCR) (Not Detect) Human Metapneumovir PCR (Not Detect) Influenza Type A (PCR) (Not Detect) Influenza Type B (PCR) (Not Detect) M. pneumoniae (PCR) (Not Detect) Parainfluenza 1 (PCR) (Not Detect) Parainfluenza 2 (PCR) (Not Detect) Parainfluenza 3 (PCR) (Not Detect) Parainfluenza 4 (PCR) (Not Detect) RSV (PCR) (Not Detect) Entero/Rhino (PCR) (Not Detect) MDM Narrative Medical decision making narrative: CC: Dizziness and weakness upon awakening Complicating co-morbidities: Congestive heart failure, atrial fibrillation, hypotension, coronary artery disease Data collected from: patient Social determinants of health that may influence the patients condition: Patient lives on [facility]. Medical records reviewed: Notes from [facility] are reviewed. He was admitted March 27 with episodes of hypotension that improved after holding all of medications including spironolactone and Lasix. Due to his atrial fibrillation metoprolol was added back at time of discharge Differential considered: Medication induced hypotension, worsening heart failure, acute coronary syndrome, COPD/emphysema exacerbation Exam documented above, pertinent findings include: Patient is persistently hypoxic and currently is on OxyMask at 6 L with sats at 91%. He is tachycardic, I do not appreciate rhonchi or wheezes today. Abdomen is soft, minimal lower extremity edema with left foot and wound care dressings and not undressed today Lab Test results independently reviewed as above. Pertinent findings: CBC shows no leukocytosis, mild anemia at 10.3 and 32.1 which is down from 2 weeks ago at 11.3 and 35.4 platelet count also slightly low at 143 Chemistries show appropriate renal function, chronic stable hyponatremia Independently reviewed EKG: Atrial fibrillation at a rate of 108. Left axis deviation, no acute ischemia Imaging studies independently reviewed: PE remains within the differential however he is anticoagulated, with similar presentation and findings on March [address] a [address] scan of the chest that did not show pulmonary embolism. I think there enough alternate explanations for his dyspnea that is CT scan of the chest is not indicated at this time Consultations: Discussion with Dr. Nam, cardiology. Again recommends hospitalization for medication management. Begin amiodarone, stop the diltiazem. Treatments: IV amiodarone started Discussion: 88-year-old gentleman with heart failure, pulmonary hypertension, emphysema coronary artery disease and healing osteomyelitis of his great toe in the left side presents with worsening baseline weakness. Likely exacerbated after adding diltiazem back into his regimen 5 days ago. Similar admission March 27 at [facility]. I do not see a recent echocardiogram either from [place] or [facility], most recent is May of 2019. At that time the patient was in sinus rhythm, had a pericardial effusion, ejection fraction 60-65%, IVC was dilated suggesting high right atrial pressure. We will suggest hospitalization, some get him loaded on amiodarone for rate control with discontinuation of diltiazem, repeat echocardiogram. Chest x-ray, not significantly elevated BNP, no JVD and no significant lower extremity edema along with no rales suggests that heart failure may not be as clinically concerning. I am not going to give him any diuretics in the emergency department. His current hypoxia is new and he was noted to have similar rate with his chronic atrial fibrillation with recent hospitalization. Discharge Plan Departure Patient Disposition: Admitted As Inpatient Clinical Impression: Atrial fibrillation with rapid ventricular response, Acute hypotension, Pulmonary hypertension Congestive heart failure Qualifiers: Heart failure type: unspecified Heart failure chronicity: acute on chronic Q ualified Code(s): I50.9 - Heart failure, unspecified Admit Date/Time: 04/11/24 12:42 Admit Provider: Ash Patel
[2024-04-11 08:58] LABS: Add Manual Diff / Slide Review NO; Basophils Absolute Auto 0 /uL (0-100); Basophils Percent Auto 0.8 % (0-2); Eosinophils Absolute Auto 100 /uL (0-450); Eosinophils Percent Auto 0.9 % (2-4); Hematocrit 32.1 % (41-53); Hemoglobin 10.3 g/dL (13.5-17.5); Lymphocytes Absolute Auto 900 /uL (1100-4500); Mean Corpuscular Hemoglobin 31.2 PG (26-34); Mean Corpuscular Volume 97.4 fL (80-100); Monocytes Absolute Auto 700 /uL (0-900); Neutrophils Absolute Auto 4600 /uL (1500-7000); Neutrophils Percent Auto 73.3 % (50-75); Platelet Count 143 X10^3/uL (150-400); Red Blood Cell Count 3.29 X10^6/uL (4.5-5.9); White Blood Cell Count 6.3 X10^3/uL (4.5-11.0)
[2024-04-11 09:05] LABS: INR 1.8 (0.9-1.3); Prothrombin Time 19.9 SECONDS (9.4-12.5)
[2024-04-11 09:10] LABS: Alanine Aminotransferase 25 IU/L (<50); Albumin 2.8 g/dL (3.5-5.0); Albumin Globulin Ratio 1.1 (1.0-2.8); Alkaline Phosphatase 96 U/L (38-126); Aspartate Aminotransferase 38 IU/L (17-59); BUN Creatinine Ratio 26.7 (6-22); Bilirubin Total 1.1 mg/dL (0.2-1.3); Blood Urea Nitrogen 28 mg/dL (9-20); Calcium 8.8 mg/dL (8.4-10.2); Carbon Dioxide 20 mmol/L (22-32); Chloride 109 mmol/L (98-107); Estimated Glomerular Filt Rate > 60 mL/min (>60); Globulin 2.6 g/dL (1.7-4.1); Glucose 87 mg/dL (80-110); HEMOLYSIS 30 (0-50); Lactate (Lactic Acid) 2.5 mmol/L (0.7-2.1); Potassium 3.5 mmol/L (3.4-5.1); Sodium 134 mmol/L (137-145); Total Protein 5.4 g/dL (6.3-8.2)
[2024-04-11 09:21] LABS: NT-proBNP (BNP-Adult 18+) 4280 pg/mL (<450); Troponin I < 0.012 ng/mL (0.01-0.034)
[2024-04-11 10:28] LABS: Reflexed Lactate in 2 Hours Y
[2024-04-11 10:40] LABS: Adenovirus Not Detected (Not Detect); B. parapertussis Not Detected (Not Detecte); Bordetella pertussis Not Detected (Not Detect); Chlamydophila pneumoniae Not Detected (Not Detect); Coronavirus 229E Not Detected (Not Detect); Coronavirus HKU1 Not Detected (Not Detect); Coronavirus NL 63 Not Detected (Not Detect); Coronavirus OC43 Not Detected (Not Detect); Human Metapneumovirus Not Detected (Not Detect); Human Rhinovirus/Enterovirus Not Detected (Not Detect); Influenza A Not Detected (Not Detect); Influenza B Not Detected (Not Detect); Mycoplasma pneumoniae Not Detected (Not Detect); Parainfluenza Virus 1 Not Detected (Not Detect); Parainfluenza Virus 2 Not Detected (Not Detect); Parainfluenza Virus 3 Not Detected (Not Detect); Parainfluenza Virus 4 Not Detected (Not Detect); Respiratory Syncytial Virus Not Detected (Not Detect); SARS- CoV-2 Not Detected (Not Detecte)
[2024-04-11 11:01] LABS: Lactate 2HR (Lactic Acid Rflx) 1.6 mmol/L (0.7-2.1)
[2024-04-11] MEDS: AMIODARONE 360 MG/200 ML PIGGYBACK 33.33 MG IV (11:02)
--- NOTE | 2024-04-11 12:51 | PM.HP.1 ---
History of Present Illness History of Present Illness Date Patient Seen: 04/11/24 Time Patient Seen: 12:52 Chief complaint: SOB, Dizzy Narrative: The patient has a history of COPD, atrial fibrillation, pulmonary hypertension, CAD, and CHF who presents with progressive weakness and hypotension. He was recently admitted to [facility] on March 27 and discharged on the . At that time he had hypotension when which responded to fluids. Today, the patient has hypotension and atrial fib with a response in the 120s. The ED physician discussed this with Dr. Ray who recommended an amiodarone infusion. The patient denies overt leg swelling, cough, or orthopnea. He did feel quite dizzy over the last 2 days. He does live with his , on [facility]. He denies any palpitations, or chest pain. No nausea, vomiting, or diarrhea. His appetite has been stable. He was being treated for a left great toe wound and wound care in [place] and is being treated for chronic osteomyelitis by Dr. Longo of Infectious Disease at [facility]. He was his wound inspected and rewrapped once a week, this happened yesterday. 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 Rheumatoid arthritis Sequela of lacunar infarction COPD (chronic obstructive pulmonary disease) Ankle pain Mumps Measles Chicken pox Hemorrhoid Anticoagulation goal of INR 2 to 3 Age related cataract Pericarditis Cholelithiasis Polymyalgia rheumatica History of tobacco use Obesity History of gastric ulcer Hyperlipidemia Hypertension Gout Chronic anticoagulation Atrial fibrillation Surgical History Anesthesia History of ankle surgery (~1965) History of appendectomy (~2018) History of tonsillectomy (~1944) History of cataract removal with insertion of prosthetic lens History of laparotomy (~1999) Family History Mother Hypertension Heart disease Diabetes mellitus Hyperlipidemia Father Hypertension Hyperlipidemia Grandmother Pneumonia Social History marital status: household members: spouse occupational status: previously employed Smoking Status: Former smoker alcohol intake: former substance use type: does not use Meds Home Medications and Allergies Home Medications Medication Instructions Recorded Confirmed Type multivitamin (One Daily 1 tab PO DAILY 05/04/18 01/20/24 History Multivitamin tablet) albuterol sulfate 90 mcg/actuation 2 puff inhalation Q4H PRN 11/07/20 01/20/24 History aerosol inhaler shortness of breath or wheezing acetaminophen 500 mg tablet 1,000 mg PO TID PRN Pain (Scale 08/25/21 01/20/24 History (Tylenol Extra Strength) Score 1-3) apixaban 5 mg tablet (Eliquis) 5 mg PO BID Atrial fibrillation 02/08/22 01/20/24 Rx CVA #180 tabs B12 1,000 tab PO 11/30/22 01/20/24 History mcg-methyltetrahydrofolate 680 mcg DFE-B6 1.5 mg chew tablet folic acid 800 mcg tablet 800 mcg PO DAILY 11/30/22 01/20/24 History leflunomide 20 mg tablet 20 mg PO DAILY 02/28/23 01/20/24 History cholecalciferol (vitamin D3) 25 25 mcg PO DAILY 04/05/23 01/20/24 History mcg (1,000 unit) capsule allopurinol 300 mg tablet 300 mg PO DAILY #90 tabs 06/30/23 01/20/24 Rx lovastatin 40 mg tablet 40 mg PO QPM #90 tabs 07/20/23 01/20/24 Rx tamsulosin 0.4 mg capsule (Flomax) 0.8 mg (2 x 0.4 mg) PO QPM #180 07/20/23 01/20/24 Rx caps budesonide-formoterol HFA 80 2 inh PO BID #30.9 grams 10/04/23 01/20/24 Rx mcg-4.5 mcg/actuation aerosol inhaler (Breyna) ipratropium bromide 42 mcg (0.06 2 spray intranasal TID-QID PRN 10/24/23 01/20/24 Rx %) nasal spray allergy symptoms #45 mL finasteride 5 mg tablet 5 mg PO DAILY #90 tabs 02/08/24 Rx famotidine 40 mg tablet (Pepcid) 40 mg PO BEDTIME #90 tabs 02/20/24 Rx gabapentin 100 mg capsule 100 mg PO TID #270 caps 03/12/24 Rx doxycycline hyclate 100 mg capsule 100 mg PO BID 03/30/24 03/30/24 History metoprolol tartrate 25 mg tablet 25 mg PO DAILY 03/30/24 03/30/24 History sacubitril 24 mg-valsartan 26 mg See Rx Instructions PO BID #60 tabs 03/30/24 03/30/24 Rx tablet (Entresto) diltiazem HCl 60 mg 60 mg PO DAILY #60 caps 04/04/24 Rx capsule,extended release 12 hr Allergies Allergy/AdvReac Type Severity Reaction Status Date / Time latex [LATEX] Allergy Mild Rash Verified 03/30/24 15:41 olmesartan AdvReac Severe Dizziness Verified 03/30/24 15:41 levofloxacin AdvReac Intermediate Muscle Pain Verified 03/30/24 15:41 Review of Systems Review of Systems Narrative: All else reviewed and otherwise unremarkable except as noted in the history and physical. Exam Vital Signs (past 8 hours): - 04/11/24 09:01 04/11/24 09:51 04/11/24 10:00 Temperature 98.7 F Pulse Rate 115 H 112 H Respiratory Rate 22 11 L Blood Pressure 109/67 102/68 Pulse Oximetry 91 Oxygen Delivery Method Oximask Room Air Oxygen Flow Rate 6 04/11/24 10:00 04/11/24 10:30 04/11/24 10:30 Temperature Pulse Rate 107 H 104 H Respiratory Rate 12 12 Blood Pressure 110/62 Pulse Oximetry 100 98 Oxygen Delivery Method Oxygen Flow Rate 04/11/24 10:50 04/11/24 10:50 04/11/24 10:55 Temperature Pulse Rate 108 H Respiratory Rate 11 L Blood Pressure 123/63 117/70 Pulse Oximetry 95 Oxygen Delivery Method Oxygen Flow Rate 04/11/24 10:55 04/11/24 11:00 04/11/24 11:00 Temperature Pulse Rate 109 H 109 H Respiratory Rate 16 12 Blood Pressure 112/63 Pulse Oximetry 95 93 Oxygen Delivery Method Oxygen Flow Rate Oxygen Delivery Method Room Air Oxygen Flow Rate 6 Narrative Exam Narrative: NAD, alert and oriented, fluent speech, calm. Normocephalic skull, EOMI, anicteric sclera, symmetric pupils. Oropharynx unremarkable, no droop. Neck supple, midline trachea, no adenopathy. Lungs clear, normal rate and effort. Heart irregular, no murmur gallop or rub. Tachycardic. Abdomen is soft, non distended and non tender. Extremities are free of edema. Skin is free of rash or lesions. Joints are not swollen or deformed. Judgment appears to be normal. Left foot is wrapped. Objective ECG Impression: Atrial fibrillation with rapid ventricular response Left axis deviation Pulmonary disease pattern Inferior infarct , age undetermined Imaging Chest x-ray: My impression: Left diaphragm high, cardiomegaly, mild pulmonary edema. Radiologist's impression: trace bilateral pleural effusion. No definite focal infiltrate. No pneumothorax. Labs 04/11/24 08:38 04/11/24 08:38 Labs: Laboratory Results - last 24 hr 04/11/24 04/11/24 04/11/24 08:38 09:31 10:42 WBC 6.3 RBC 3.29 L Hgb 10.3 L Hct 32.1 L MCV 97.4 MCH 31.2 MCHC 32.0 RDW 20.0 H Plt Count 143 L Neut % (Auto) 73.3 Lymph % (Auto) 14.0 L [place] % (Auto) 11.0 Eos % (Auto) 0.9 L Baso % (Auto) 0.8 Neut # (Auto) 4600 Lymph # (Auto) 900 L [place] # (Auto) 700 Eos # (Auto) 100 Baso # (Auto) 0 PT 19.9 H INR 1.8 H Sodium 134 L Potassium 3.5 Chloride 109 H Carbon Dioxide 20 L BUN 28 H Creatinine 1.05 Estimated GFR > 60 BUN/Creatinine Ratio 26.7 H Glucose 87 Lactate 2.5 H 1.6 Calcium 8.8 Total Bilirubin 1.1 AST 38 ALT 25 Alkaline Phosphatase 96 Troponin I < 0.012 NT-Pro-B Natriuret Pep 4280 H Total Protein 5.4 L Albumin 2.8 L Globulin 2.6 Albumin/Globulin Ratio 1.1 Chlamy pneumoniae PCR Not detected Adenovirus (PCR) Not detected B. pertussis DNA (PCR) Not detected B.parapertussis DNA PCR Not detected Coronavirus OC43 (PCR) Not detected Coronavirus HKU1 (PCR) Not detected Coronavirus 229E (PCR) Not detected SARS-CoV-2 (PCR) Not detected Coronavirus NL63 (PCR) Not detected Human Metapneumovir PCR Not detected Influenza Type A (PCR) Not detected Influenza Type B (PCR) Not detected M. pneumoniae (PCR) Not detected Parainfluenza 1 (PCR) Not detected Parainfluenza 2 (PCR) Not detected Parainfluenza 3 (PCR) Not detected Parainfluenza 4 (PCR) Not detected RSV (PCR) Not detected Entero/Rhino (PCR) Not detected Assessment & Plan Assessment & Plan narrative: 1. Atrial fibrillation with rapid response, present on admission and active. 2. Acute hypoxic respiratory failure, present on admission and active. Negative respiratory panel. Negative troponin. 3. Probable acute on chronic diastolic heart failure, present on admission and active. 4. COPD, present on admission and likely stable. 5. Chronic anticoagulation, present on admission stable. 6. Pulmonary hypertension, present on admission and active. 7. Hypertension with recent soft blood pressures, present on admission and active. 8. Mild lactic acidosis, present on admission and active. Plan: -ED physician discussed with pilot control operator helper, Dr. Ray. Recommendations were for amiodarone bolus and IV load. This was started we will continue. -hold blood pressure medications and follow his pressure. -consider gentle diuresis if able. We did discuss level care, he was full resuscitation but he would not want prolonged resuscitative effort. He was also against the idea of intubation and ventilator support. He notes his has different opinions on some of these issues. Full resuscitation Anticipate 2 midnight need for hospital services, the supports inpatient status. He was on IV amiodarone, dangerous medication and requires frequent monitoring. He was a relatively high risk for adverse outcomes of acute atrial fibrillation with rapid response, and hypoxic respiratory failure with her his comorbid conditions of CAD and pulmonary hypertension. BLANCA: 04/14. Time-Based Coding :: 45 min spent with patient and on the chart (including review of chart, obtaining history, exam, reviewing outside data, placing orders, documenting exam and treatment plan, and counseling patient) on 04/11. Quality MIPS - Admit The patient?s Advance Care plan is not present because I confirmed today that the patient does not wish or was not able to name a surrogate decision maker or provide an Advance Care Plan.: Yes MIPS - Meds 'Current medications' to include all prescriptions, [id number] products, herbals, cannabis/cannabidiol products, and vitamin/mineral/dietary (nutritional) supplements. I have utilized all available resources to obtain, update, or review the patient?s current medications. [If Yes, STOP here]: Yes
[2024-04-11 13:20] LABS: MRSA (Nasal) PCR NOT DETECTED (Not Detect)
[2024-04-11] MEDS: DOXYCYCLINE HYCLATE 100 MG TABLET PO ×2 (15:34→20:21)
[2024-04-11] MEDS: ACETAMINOPHEN 325 MG TABLET 650 MG PO (15:35)
[2024-04-11] MEDS: APIXABAN 5 MG TABLET PO ×2 (15:35→20:21)
[2024-04-11] MEDS: GABAPENTIN 100 MG CAPSULE PO ×2 (15:35→20:21)
[2024-04-11] MEDS: AMIODARONE 360 MG/200 ML PIGGYBACK 16.667 MG IV (16:34)
--- NOTE | 2024-04-11 17:31 | PC.WOUNDPHOT ---
Blanchable erythema to coccyx, several open sores, allevyn dressing applied and repositioned to offload pressure.
--- NOTE | 2024-04-11 18:34 | PC.NURSE ---
Admit Note Patient arrived to room 229 at about 1130 via stretcher from ER. Transferred via slider board. Alert and oriented x3. Initially on 8L oxymask but titrated quickly to RA with SpO2 97-99%. Denies pain. Afib RVR in the 120s, amiodarone gtt infusing. Oriented pt and to room and to call light and bed/tv controls. Bed alarm on for safety. Pt with foam dressing to left forearm, football dressing to left foot ulcer, and dressing to right second toe ulcer all C/D/I. Pt and declined removal of dressings for picture documentation due to dressings just placed by [facility]ound [facility] yesterday (04/10). Shallow partial thickness ulcerations to coccyx, picture taken and in chart, allevyn applied. Copy of dressing orders from wound care taken and put in chart. Pt up to bathroom for BM, 1 person assist with FWW, especially when going from sitting to standing. Pt exhibited poor safety awareness to and from bathroom. Required frequent cues to slow down, watch lines, and to keep FWW in front of person.
[2024-04-11] MEDS: TAMSULOSIN 0.4 MG CAPSULE 0.8 MG PO (20:21)
[2024-04-11] MEDS: FINASTERIDE 5 MG TABLET PO (20:21)
[2024-04-11] MEDS: IPRATROPIUM 0.06% NASAL 15 ML 1 SPRAY NASAL (20:48)
[2024-04-12] VITALS (25 sets, daily range): BP systolic 84–133; BP diastolic 51–80; PULSE 85–145; RESP 11–19; TEMP 36.6–36.9; O2SAT 89–97
[2024-04-12] MEDS: AMIODARONE 180 MG/100 ML PIGGYBACK 16.7 MG IV (03:05)
[2024-04-12 05:27] LABS: Add Manual Diff / Slide Review NO; Basophils Absolute Auto 0 /uL (0-100); Basophils Percent Auto 0.9 % (0-2); Eosinophils Absolute Auto 100 /uL (0-450); Eosinophils Percent Auto 2.1 % (2-4); Hematocrit 26.9 % (41-53); Hemoglobin 8.7 g/dL (13.5-17.5); Lymphocytes Absolute Auto 600 /uL (1100-4500); Lymphocytes Percent Auto 12.4 % (25-40); Mean Corpuscular HGB Conc 32.5 % (30-36); Mean Corpuscular Hemoglobin 31.4 PG (26-34); Mean Corpuscular Volume 96.7 fL (80-100); Monocytes Absolute Auto 600 /uL (0-900); Monocytes Percent Auto 12.3 % (3-14); Neutrophils Absolute Auto 3400 /uL (1500-7000); Neutrophils Percent Auto 72.3 % (50-75); Platelet Count 108 X10^3/uL (150-400); Red Blood Cell Count 2.78 X10^6/uL (4.5-5.9); Red Cell Distribution Width 20.4 % (11.6-14.8); White Blood Cell Count 4.8 X10^3/uL (4.5-11.0)
[2024-04-12 05:43] LABS: Blood Urea Nitrogen 23 mg/dL (9-20); Calcium 8.1 mg/dL (8.4-10.2); Carbon Dioxide 21 mmol/L (22-32); Chloride 110 mmol/L (98-107); Estimated Glomerular Filt Rate > 60 mL/min (>60); Glucose 99 mg/dL (80-110); HEMOLYSIS < 15 (0-50); Potassium 3.1 mmol/L (3.4-5.1); Sodium 133 mmol/L (137-145)
[2024-04-12 06:44] LABS: Anisocytosis 2+; Macrocytosis 2+; Platelet Estimate Decreased on smear; Target Cells 1+
[2024-04-12] MEDS: AMIODARONE 200 MG TABLET 400 MG PO ×2 (08:12→16:42)
--- NOTE | 2024-04-12 08:21 | P.PN_ITS ---
Subjective Subjective Interval history: Summary: The patient has a history of COPD, atrial fibrillation, pulmonary hypertension, CAD, and CHF who presents with progressive weakness and hypotension. He was recently admitted to [facility] on March 27 and discharged on the . At that time he had hypotension when which responded to fluids. Today, the patient has hypotension and atrial fib with a response in the 120s. The ED physician discussed this with Dr. Ray who recommended an amiodarone infusion. The patient denies overt leg swelling, cough, or orthopnea. He did feel quite dizzy over the last 2 days. He does live with his , on [facility]. He denies any palpitations, or chest pain. No nausea, vomiting, or diarrhea. His appetite has been stable. He was being treated for a left great toe wound and wound care in [place] and is being treated for chronic osteomyelitis by Dr. Torres of Infectious Disease at [facility]. He was his wound inspected and rewrapped once a week, this happened yesterday. S: He feels better today. He was off oxygen. No cough. He denies any chest pain. His blood pressure is doing reasonably well. He was going to transition from IV to oral amiodarone. He was not been diuresed. He was taking Lasix 3 times a week. K 3.1. Na 133. Exam Vital Signs (past 8 hours): - 04/12/24 01:00 04/12/24 01:00 04/12/24 02:00 Temperature Pulse Rate 99 H 96 H Respiratory Rate 14 13 Blood Pressure 91/52 L Pulse Oximetry 94 94 Oxygen Flow Rate 0 04/12/24 02:00 04/12/24 03:00 04/12/24 03:00 Temperature Pulse Rate 92 H Respiratory Rate 13 Blood Pressure 98/56 L 102/55 L Pulse Oximetry 94 Oxygen Flow Rate 0 0 04/12/24 04:00 04/12/24 04:00 04/12/24 05:00 Temperature 97.8 F Pulse Rate 95 H Respiratory Rate 14 Blood Pressure 107/65 94/65 Pulse Oximetry 92 Oxygen Flow Rate 0 0 04/12/24 05:00 04/12/24 06:00 04/12/24 06:00 Temperature Pulse Rate 92 H 99 H Respiratory Rate 13 11 L Blood Pressure 115/65 Pulse Oximetry 94 94 Oxygen Flow Rate 0 04/12/24 07:00 04/12/24 07:00 Temperature Pulse Rate 92 H Respiratory Rate 13 Blood Pressure 106/64 Pulse Oximetry 93 Oxygen Flow Rate Oxygen Delivery Method Room Air Oxygen Flow Rate 0 Narrative Exam Narrative: NAD, alert and oriented. Fluent speech. Chronically ill in appearance. Lungs are clear, normal rate and effort. Heart is irregular, no murmur gallop or rub. Abdomen is soft, non distended. Extremities are free of edema. Objective Labs 04/12/24 04:21 04/12/24 04:21 Labs: Laboratory Results - last 24 hr 04/11/24 04/11/24 04/11/24 08:38 09:31 10:42 WBC 6.3 RBC 3.29 L Hgb 10.3 L Hct 32.1 L MCV 97.4 MCH 31.2 MCHC 32.0 RDW 20.0 H Plt Count 143 L Neut % (Auto) 73.3 Lymph % (Auto) 14.0 L [place] % (Auto) 11.0 Eos % (Auto) 0.9 L Baso % (Auto) 0.8 Neut # (Auto) 4600 Lymph # (Auto) 900 L [place] # (Auto) 700 Eos # (Auto) 100 Baso # (Auto) 0 Platelet Estimate RBC Morphology Anisocytosis Macrocytosis Target Cells PT 19.9 H INR 1.8 H Sodium 134 L Potassium 3.5 Chloride 109 H Carbon Dioxide 20 L BUN 28 H Creatinine 1.05 Estimated GFR > 60 BUN/Creatinine Ratio 26.7 H Glucose 87 Lactate 2.5 H 1.6 Calcium 8.8 Total Bilirubin 1.1 AST 38 ALT 25 Alkaline Phosphatase 96 Troponin I < 0.012 NT-Pro-B Natriuret Pep 4280 H Total Protein 5.4 L Albumin 2.8 L Globulin 2.6 Albumin/Globulin Ratio 1.1 Nasal Screen MRSA (PCR) Chlamy pneumoniae PCR Not detected Adenovirus (PCR) Not detected B. pertussis DNA (PCR) Not detected B.parapertussis DNA PCR Not detected Coronavirus OC43 (PCR) Not detected Coronavirus HKU1 (PCR) Not detected Coronavirus 229E (PCR) Not detected SARS-CoV-2 (PCR) Not detected Coronavirus NL63 (PCR) Not detected Human Metapneumovir PCR Not detected Influenza Type A (PCR) Not detected Influenza Type B (PCR) Not detected M. pneumoniae (PCR) Not detected Parainfluenza 1 (PCR) Not detected Parainfluenza 2 (PCR) Not detected Parainfluenza 3 (PCR) Not detected Parainfluenza 4 (PCR) Not detected RSV (PCR) Not detected Entero/Rhino (PCR) Not detected 04/11/24 04/12/24 11:30 04:21 WBC 4.8 RBC 2.78 L Hgb 8.7 L Hct 26.9 L MCV 96.7 MCH 31.4 MCHC 32.5 RDW 20.4 H Plt Count 108 L Neut % (Auto) 72.3 Lymph % (Auto) 12.4 L [place] % (Auto) 12.3 Eos % (Auto) 2.1 Baso % (Auto) 0.9 Neut # (Auto) 3400 Lymph # (Auto) 600 L [place] # (Auto) 600 Eos # (Auto) 100 Baso # (Auto) 0 Platelet Estimate Decreased on smear RBC Morphology See below Anisocytosis 2+ H Macrocytosis 2+ H Target Cells 1+ H PT INR Sodium 133 L Potassium 3.1 L Chloride 110 H Carbon Dioxide 21 L BUN 23 H Creatinine 1.00 Estimated GFR > 60 BUN/Creatinine Ratio 23.0 H Glucose 99 Lactate Calcium 8.1 L Total Bilirubin AST ALT Alkaline Phosphatase Troponin I NT-Pro-B Natriuret Pep Total Protein Albumin Globulin Albumin/Globulin Ratio Nasal Screen MRSA (PCR) Not detected Chlamy pneumoniae PCR Adenovirus (PCR) B. pertussis DNA (PCR) B.parapertussis DNA PCR Coronavirus OC43 (PCR) Coronavirus HKU1 (PCR) Coronavirus 229E (PCR) SARS-CoV-2 (PCR) Coronavirus NL63 (PCR) Human Metapneumovir PCR Influenza Type A (PCR) Influenza Type B (PCR) M. 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 Rheumatoid arthritis Sequela of lacunar infarction COPD (chronic obstructive pulmonary disease) Ankle pain Mumps Measles Chicken pox Hemorrhoid Anticoagulation goal of INR 2 to 3 Age related cataract Pericarditis Cholelithiasis Polymyalgia rheumatica History of tobacco use Obesity History of gastric ulcer Hyperlipidemia Hypertension Gout Chronic anticoagulation Atrial fibrillation Surgical History Anesthesia History of ankle surgery (~1965) History of appendectomy (~2018) History of tonsillectomy (~1944) History of cataract removal with insertion of prosthetic lens History of laparotomy (~1999) Family History Mother Hypertension Heart disease Diabetes mellitus Hyperlipidemia Father Hypertension Hyperlipidemia Grandmother Pneumonia Social History marital status: household members: spouse occupational status: previously employed Smoking Status: Former smoker alcohol intake: current substance use type: does not use Assessment & Plan Assessment & Plan narrative: 1. Atrial fibrillation with rapid response, present on admission and improving. 2. Acute hypoxic respiratory failure, present on admission and resolved. Negative respiratory panel. Negative troponin. 3. Probable acute on chronic diastolic heart failure, present on admission and improved. 4. COPD, present on admission and likely stable. 5. Chronic anticoagulation, present on admission stable. 6. Pulmonary hypertension, present on admission and active. 7. Hypertension with recent soft blood pressures, present on admission and active. 8. Mild lactic acidosis, present on admission and improved. 9. Hypokalemia, new and active. Plan: -ED physician discussed with fishing tackle repairer, Dr. Ray. Recommendations were for amiodarone bolus and IV load. This was started we will continue. -hold blood pressure medications and follow his pressure. transition to PO Amiodarone. -discussed with Dr. Ray today. He wants to use low dose BB and avoind digoxin for now. -continue Lasix TIW for now. DNR Anticipate 2 midnight need for hospital services, the supports inpatient status. He was on IV amiodarone, dangerous medication and requires frequent monitoring. Time-Based Coding :: [TOTAL MINUTES] spent with patient and on the chart (including review of chart, obtaining history, exam, reviewing outside data, placing orders, documenting exam and treatment plan, and counseling patient) on [DATE]. Quality VTE Deep Vein Thrombosis/Pulmonary Embolism Present on Admission: No
[2024-04-12] MEDS: POTASSIUM CHLORIDE 20 MEQ TAB 40 MEQ PO ×2 (08:58→16:42)
[2024-04-12] MEDS: DOXYCYCLINE HYCLATE 100 MG TABLET PO ×2 (08:59→22:00)
[2024-04-12] MEDS: allopurinoL 100 MG TABLET 300 MG PO (09:00)
[2024-04-12] MEDS: APIXABAN 5 MG TABLET PO ×2 (09:00→22:00)
[2024-04-12] MEDS: GABAPENTIN 100 MG CAPSULE PO ×3 (09:00→22:00)
[2024-04-12] MEDS: ACETAMINOPHEN 325 MG TABLET 650 MG PO (09:10)
[2024-04-12] MEDS: IPRATROPIUM 0.06% NASAL 15 ML 1 SPRAY NASAL ×2 (09:11→22:00)
[2024-04-12] MEDS: MULTIVITAMIN 1 TABLET 1 TAB PO (11:44)
--- NOTE | 2024-04-12 14:23 | CM.DANOTE ---
Initial DCP Assessment Note Pt is an 88 yo male, resident of [facility], arrives with increased weakness and SOB PCP: Michelet Irby Payer: [employer] Met w/patient and his spouse, Fareed. Patient reports being mostly sedentary since July because of his chronic toe ulcer. Patient's wound care team instructed him to stay off his foot/toe and elevate when possible. Patient reports feeling deconditioned and has poor activity tolerance. Spouse helps with most ADLs and drives. Patient recently agreed to use a cane or walker in and out of their home. Patient has hx at [facility] after a stroke and is hopeful he will not need to return to SNF. Patient is seen by Dr Torres, ID doc at [facility], and attends the wound care center at every week. Spouse admits caring for patient at home has become increasingly challenging. Discussed in home care and services. Patient/sp agreeable to referral to [facility], the only agency that serves the [facility]. Spouse denies need for [facility] caregiver resources, states she has a contact at the [facility] to help she and patient with correction care planning. Referral made via email to Ani at [facility]. F2F has been completed, JAYNE Cardona coordinator has scanned into chart. Plan: Discharge home with spouse is anticipated, via spouse to transport, [facility] services. STELLA Wright Discharge Planning/Care Management CM Discharge Assessment Start: 04/12/24 13:48 Freq: Status: Active Protocol: Document 04/12/24 13:49 AIDA (Rec: 04/12/24 14:23 AIDA [id number]) Discharge Planning Assessment Assigned Guide Dog Trainer STELLA Pardo DPOA/Assigned Designee Name Fareed Gage, spouse Contact Information [phone] Advance Directives? Yes: POLST, DNR Advance Directives on File Yes History Provided By Patient,Significant Other, Medical Record Has Patient been admitted in last 30 No days? Prior Living Arrangements House Household Members spouse Type of transporation used prior to Relies on Others admit Independent with ADL's No Is patient alert and oriented? Yes: Patient aware that he has poor safety insight at times Needs Assistance With Bathing,Grooming,Meal Prep, Toileting,Managing Medications ,Home Chores / Shopping Comment Needs assist with most ADLs recently. Spouse drives. Patient/Family Preference Home with Home Health Discharge Plan Home with Home Health Transportation Arrangement Spouse Referrals Initiated Home Health Additional Comment Referral to [facility] done Medicare Choice List Provided Yes SNF/HH Preference [facility] Has Agency SNF been contacted Yes Comment Referral made to [facility]
[2024-04-12] MEDS: ACETAMINOPHEN 325 MG TABLET 975 MG PO (15:42)
[2024-04-12] MEDS: METOPROLOL IR 25 MG TABLET 12.5 MG PO ×2 (15:43→22:00)
[2024-04-12] MEDS: FINASTERIDE 5 MG TABLET PO (22:00)
[2024-04-12] MEDS: TAMSULOSIN 0.4 MG CAPSULE 0.8 MG PO (22:00)
[2024-04-13] VITALS (28 sets, daily range): BP systolic 78–128; BP diastolic 52–81; PULSE 71–129; RESP 12–38; O2SAT 93–98
[2024-04-13 04:59] LABS: Add Manual Diff / Slide Review NO; Basophils Absolute Auto 0 /uL (0-100); Basophils Percent Auto 0.7 % (0-2); Eosinophils Absolute Auto 100 /uL (0-450); Eosinophils Percent Auto 2.3 % (2-4); Hematocrit 29.4 % (41-53); Hemoglobin 9.6 g/dL (13.5-17.5); Lymphocytes Absolute Auto 600 /uL (1100-4500); Lymphocytes Percent Auto 11.9 % (25-40); Mean Corpuscular HGB Conc 32.5 % (30-36); Mean Corpuscular Hemoglobin 31.4 PG (26-34); Mean Corpuscular Volume 96.7 fL (80-100); Monocytes Absolute Auto 600 /uL (0-900); Neutrophils Absolute Auto 3500 /uL (1500-7000); Neutrophils Percent Auto 73.1 % (50-75); Platelet Count 119 X10^3/uL (150-400); Red Blood Cell Count 3.04 X10^6/uL (4.5-5.9); Red Cell Distribution Width 20.4 % (11.6-14.8); White Blood Cell Count 4.8 X10^3/uL (4.5-11.0)
[2024-04-13 05:08] LABS: BUN Creatinine Ratio 22.9 (6-22); Blood Urea Nitrogen 19 mg/dL (9-20); Calcium 8.4 mg/dL (8.4-10.2); Carbon Dioxide 22 mmol/L (22-32); Chloride 112 mmol/L (98-107); Estimated Glomerular Filt Rate > 60 mL/min (>60); Glucose 91 mg/dL (80-110); HEMOLYSIS < 15 (0-50); Potassium 3.8 mmol/L (3.4-5.1); Sodium 134 mmol/L (137-145)
[2024-04-13] MEDS: ALBUTEROL 2.5 MG/3 ML NEB (ADULT) INH ×2 (05:15→14:21)
[2024-04-13 06:14] LABS: Anisocytosis 2+; Macrocytosis 2+; Platelet Estimate Decreased on smear; Target Cells 1+
[2024-04-13] MEDS: GABAPENTIN 100 MG CAPSULE PO ×3 (08:48→21:14)
[2024-04-13] MEDS: ACETAMINOPHEN 325 MG TABLET 975 MG PO ×2 (08:48→14:59)
[2024-04-13] MEDS: AMIODARONE 200 MG TABLET 400 MG PO ×2 (08:49→16:56)
[2024-04-13] MEDS: METOPROLOL IR 25 MG TABLET 12.5 MG PO ×2 (08:49→21:16)
[2024-04-13] MEDS: DOXYCYCLINE HYCLATE 100 MG TABLET PO ×2 (08:49→21:17)
[2024-04-13] MEDS: APIXABAN 5 MG TABLET PO ×2 (08:50→21:16)
[2024-04-13] MEDS: allopurinoL 100 MG TABLET 300 MG PO (08:50)
[2024-04-13] MEDS: POTASSIUM CHLORIDE 20 MEQ TAB 40 MEQ PO ×2 (08:50→16:56)
[2024-04-13] MEDS: FUROSEMIDE 20 MG/2 ML VIAL IV (09:46)
[2024-04-13] MEDS: MULTIVITAMIN 1 TABLET 1 TAB PO (12:00)
--- NOTE | 2024-04-13 12:09 | PM.PN.1 ---
Subjective Subjective Interval history: Summary: The patient has a history of COPD, atrial fibrillation, pulmonary hypertension, CAD, and CHF who presents with progressive weakness and hypotension. He was recently admitted to [facility] on March 27 and discharged on the . At that time he had hypotension when which responded to fluids. Today, the patient has hypotension and atrial fib with a response in the 120s. The ED physician discussed this with Dr. Ray who recommended an amiodarone infusion. The patient denies overt leg swelling, cough, or orthopnea. He did feel quite dizzy over the last 2 days. He does live with his , on [facility]. He denies any palpitations, or chest pain. No nausea, vomiting, or diarrhea. His appetite has been stable. He was being treated for a left great toe wound and wound care in [place] and is being treated for chronic osteomyelitis by Dr. Torres of Infectious Disease at [facility]. He was his wound inspected and rewrapped once a week, 04/11. Subjective: He was feeling a bit better but did have some orthopnea which improved with sitting up. He was some dyspnea on exertion. We did give him Lasix IV this morning. He denies any chest pain, he was in AFib with good rate control. He was completed an amiodarone infusion is now on amiodarone orally. I did speak with his ranger aide, Dr. Ray. We placed him on low-dose metoprolol 12.5 b.i.d.. He was hoping to avoid digoxin as the patient has periodic LATIA. The patient does have chronic osteo with once a week dressing changes of the left foot and has a small ulceration on the right foot and left forearm which we will have dressing changes today. He does have intermittent dysphagia in his has requested a speech evaluation if possible. We will also have Physical therapy evaluate him. The patient is typically taking Lasix 20 mg 3 times a week at home and he was to have a fairly labile volume status situation where he can either become overloaded or volume depleted quite easily. He was given Lasix today and he will likely go home on Lasix either 3 times a week or possibly 4 times a week at 20 mg a day. He was on [facility], as possible he would little to discharge on Tuesday, more likely on Tuesday. Exam Vital Signs (past 8 hours): - 12/06/24 05:00 04/13/24 05:00 04/13/24 05:19 Pulse Rate 97 H 102 H Respiratory Rate 17 20 Blood Pressure 125/63 Pulse Oximetry 95 98 Oxygen Delivery Method Room Air Fraction of Inspired Oxygen 21 04/13/24 06:00 04/13/24 06:00 04/13/24 06:59 Pulse Rate 97 H 95 H Respiratory Rate 12 13 Blood Pressure 115/68 Pulse Oximetry 95 94 Oxygen Delivery Method Fraction of Inspired Oxygen 04/13/24 07:00 04/13/24 07:00 04/13/24 07:00 Pulse Rate 94 H Respiratory Rate 15 Blood Pressure 120/81 Pulse Oximetry 95 Oxygen Delivery Method Room Air Fraction of Inspired Oxygen 04/13/24 08:00 04/13/24 08:00 04/13/24 09:00 Pulse Rate 95 H 109 H Respiratory Rate 13 Blood Pressure 99/62 Pulse Oximetry 94 95 Oxygen Delivery Method Fraction of Inspired Oxygen 04/13/24 10:00 04/13/24 11:00 Pulse Rate 103 H 84 Respiratory Rate 15 Blood Pressure Pulse Oximetry 97 97 Oxygen Delivery Method Fraction of Inspired Oxygen Fraction of Inspired Oxygen 21 SaO2/FiO2 Ratio 461 Oxygen Delivery Method Room Air Oxygen Flow Rate 0 Narrative Exam Narrative: NAD, alert and oriented. Fluent speech. Lungs are clear, normal rate and effort. Heart is irregular, no murmur gallop or rub. Abdomen is soft, non distended. Extremities are free of edema. The left foot is wrapped. He does have a wrapping around his right foot 2nd toe. Objective Labs 04/13/24 04:30 04/13/24 04:30 Labs: Laboratory Results - last 24 hr 04/13/24 04:30 WBC 4.8 RBC 3.04 L Hgb 9.6 L Hct 29.4 L MCV 96.7 MCH 31.4 MCHC 32.5 RDW 20.4 H Plt Count 119 L Neut % (Auto) 73.1 Lymph % (Auto) 11.9 L [place] % (Auto) 12.0 Eos % (Auto) 2.3 Baso % (Auto) 0.7 Neut # (Auto) 3500 Lymph # (Auto) 600 L [place] # (Auto) 600 Eos # (Auto) 100 Baso # (Auto) 0 Platelet Estimate Decreased on smear RBC Morphology See below Anisocytosis 2+ H Macrocytosis 2+ H Target Cells 1+ H Sodium 134 L Potassium 3.8 Chloride 112 H Carbon Dioxide 22 BUN 19 Creatinine 0.83 Estimated GFR > 60 BUN/Creatinine Ratio 22.9 H Glucose 91 Calcium 8.4 PFSH Medical History 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 Rheumatoid arthritis Sequela of lacunar infarction COPD (chronic obstructive pulmonary disease) Ankle pain Mumps Measles Chicken pox Hemorrhoid Anticoagulation goal of INR 2 to 3 Age related cataract Pericarditis Cholelithiasis Polymyalgia rheumatica History of tobacco use Obesity History of gastric ulcer Hyperlipidemia Hypertension Gout Chronic anticoagulation Atrial fibrillation Surgical History Anesthesia History of ankle surgery (~1965) History of appendectomy (~2018) History of tonsillectomy (~1944) History of cataract removal with insertion of prosthetic lens History of laparotomy (~1999) Family History Mother Hypertension Heart disease Diabetes mellitus Hyperlipidemia Father Hypertension Hyperlipidemia Grandmother Pneumonia Social History marital status: household members: spouse occupational status: previously employed Smoking Status: Former smoker alcohol intake: current substance use type: does not use Assessment & Plan Assessment & Plan narrative: 1. Atrial fibrillation with rapid response, present on admission and improving. He was taking good rate control with the addition of metoprolol and conversion to oral amiodarone on April 12. 2. Acute hypoxic respiratory failure, present on admission and resolved. Negative respiratory panel. Negative troponin. Still had some dyspnea on exertion orthopnea on April 13. 3. Probable acute on chronic diastolic heart failure, present on admission and improved. We will additionally diurese him today. 4. COPD, present on admission and likely stable. 5. Chronic anticoagulation, present on admission stable. 6. Pulmonary hypertension, present on admission and active. 7. Hypertension with recent soft blood pressures, present on admission and active. 8. Mild lactic acidosis, present on admission and improved. 9. Hypokalemia, new and active. Plan: -discussed management with Dr. Ray at time of admission as well as April 12. -metoprolol 12.5 b.i.d. transition to PO Amiodarone, continue. -discussed with Dr. Ray today. He wants to use low dose BB and avoind digoxin for now. -continue Lasix TIW for now. He may need an additional IV dose of Lasix on Tuesday prior to discharge. He may require escalating his Lasix to 4 days a week instead of 3. DNR Anticipate 2 midnight need for hospital services, the supports inpatient status. His will be here in the morning of Tuesday and they live on [facility]. Time-Based Coding :: [TOTAL MINUTES] spent with patient and on the chart (including review of chart, obtaining history, exam, reviewing outside data, placing orders, documenting exam and treatment plan, and counseling patient) on [DATE]. Quality VTE Deep Vein Thrombosis/Pulmonary Embolism Present on Admission: No
--- NOTE | 2024-04-13 15:30 | PT.IIE ---
Current Diagnoses Acute on chronic diastolic (congestive) heart failure (04/11/24) Surgical History (Last Reviewed 04/11/24 @ 12:57 by Ash Patel MD) Anesthesia History of ankle surgery (~1965) History of appendectomy (~2018) History of cataract removal with insertion of prosthetic lens History of laparotomy (~2000) History of tonsillectomy (~1944) Medical History (Last Reviewed 04/11/24 @ 12:57 by Ash Patel MD) Age related cataract Ankle pain Anticoagulation goal of INR 2 to 3 Atrial fibrillation Chicken pox Cholelithiasis Chronic anticoagulation COPD (chronic obstructive pulmonary disease) Gout Hemorrhoid History of gastric ulcer History of tobacco use Hyperlipidemia 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 long-term (current) use of systemic steroids Measles Mumps Obesity Pericarditis Polymyalgia rheumatica Rheumatoid arthritis Sequela of lacunar infarction Physical Therapy Inpatient Evaluation/Re-Eval M1 PT/OT-IP Prior Functional Status Start: 04/13/24 17:44 Freq: NEEDED Status: Active Protocol: Document 04/13/24 15:30 AB (Rec: 04/13/24 18:06 AB [id number]) Medical Review Prior Functional Status Medical History Reviewed Yes Communication able to make needs known; [employer] Mobility and Gait spouse provided most of pt's PLOF and home set up; attempted to get info from pt but stated to ask his spouse since spouse is able to remember better spouse stated that pt has been getting week for the last 3 months since LLE osteomyelitis but has gottne weaker for the last 3 weeks. pt stated that he is able to walk from the bed to the toilet without AD mod I but afterwards, will be fatigued. pt stated that he uses a FWW only if he walks for long distances Social History Household Members spouse Living Arrangements House Number of Floors (Floors) One Floor Number of Stairs To Enter/Railing? 2 steps R rail ascending to enter Home Environment Standard Height Toilet,Walk in Shower,Bidet Home Equipment Front Wheel Walker,Shower Seat without Backrest,Hand Held Shower,Grab Bars In Shower M2 PT-IP Current Condition Start: 04/13/24 17:44 Freq: NEEDED Status: Active Protocol: Document 04/13/24 15:30 AB (Rec: 04/13/24 18:06 AB [id number]) Physical Therapy Current Condition Current Condition Evaluation Date 04/13/24 Treatment Diagnosis A-fib; hypotension; difficulty in walking Onset Date 04/11/24 M3 PT-IP Subjective Start: 04/13/24 17:44 Freq: NEEDED Status: Active Protocol: Document 04/13/24 15:30 AB (Rec: 04/13/24 18:06 AB [id number]) Subjective Physical Therapy Visit Type Type Initial Evaluation Visit Start Time 15:30 Visit Stop Time 16:30 Number of CLOTH MERCERIZER BACK TENDER Visits 0 Physical Therapy Visit Comments Patient Comments agreeable to do PT Therapy Pain Assessment Pain When Pain Assessed At Rest Pain Present Pain Present Pain Reported Location Neck Scale Used chronic cervical and LBP; pain scale not stated Description Chronic Pain Management Techniques Distraction,Re-positioning, Timing of Activity with Medications M4 PT-IP Mobility and Gait Start: 04/13/24 17:44 Freq: NEEDED Status: Active Protocol: Document 04/13/24 15:30 AB (Rec: 04/13/24 18:06 AB [id number]) PT-Bed Mobility Assessment Supine to Sit Supine to Sit Standby Assistance Sit to Supine Sit to Supine Standby Assistance PT-Transfer Assessment Comments Mobility Comments pt supine in bed and spouse in room. obtained PLOF and home set up from pt and spouse. pt and spouse has lots of questions regarding pt's activity needs. BP monitored. BP in supine : 112/61. O2 sat at RA: 95%. pt completed supine to sit SBA. able to sit on EOB SBA. no c/ o dizziness/lightheadedness but just feels weak in general and c/o cervical and LBP. BP checked in sittin/53, rechecked: 87/55. pt sat on EOB for ~ 1-2 more minutes: BP : 78/52. nurse informed. instructed pt to lay back in bed. SBA for sit to supine. BP checked again: 97/56. educated and completed LE exercises: heel slides, straight leg raise, glute sets and ankle pumps. positioned in bed. call light and table placed within reach. PT-Balance Assessment Sitting Balance and Reactions Static Sitting Balance Ability Normal Dynamic Sitting Balance Ability Good M5 PT-IP Objective Assessments Start: 04/13/24 17:44 Freq: NEEDED Status: Active Protocol: Document 04/13/24 15:30 AB (Rec: 04/13/24 18:06 AB [id number]) Orientation Orientation/Cognition Level of Alertness Alert Orientation Name,Place,Situation Language Function Ability Hard of Hearing Safety Awareness Decreased Safety Awareness Memory Description Short Term Impaired Gross Range of Motion Lower Extremity ROM Assessment Within Functional Limits Strength Lower Extremity Strength Assessment Bilaterally Impaired Hip 4-/5 Knee 4-/5 Muscle Tone Muscle Tone WNL Yes M6 PT-IP Treatment Start: 04/13/24 17:44 Freq: NEEDED Status: Active Protocol: Document 04/13/24 15:30 AB (Rec: 04/13/24 18:06 AB [id number]) Physical Therapy Treatment Exercises Exercises Ankle Pumps,Gluteal Sets,Heel Slides,Straight Leg Raises Education Education Provided Safety M7 PT-IP Assessment and Plan Start: 04/13/24 17:44 Freq: NEEDED Status: Active Protocol: Document 04/13/24 15:30 AB (Rec: 04/13/24 18:06 AB [id number]) PT Summary Assessment and Plan Potential Rehabilitation Potential Fair Status of Condition at Evaluation Evolving Summary Assessment Summary pt is an 88 y/o M who presented to the ED for SOB and dizziness. pt admitted for A-fib, hypotension. pt with chronic L great toe osteomyelitis. pt unable to tolerate much activity today and was only able to sit on EOB due to decrease in BP to 78/52. will continue to assess progress for safe d/c plan. Goals Bed Mobility Goal Independent Transfer Goal Independent,Front Wheeled Walker Gait Goal Independent,Front Wheel Walker Gait Distance 100 Other Goals improve transfers and ambulation using LRAD/without AD ~ 200 ft SBA up/down 2 steps R rail ascending SBA Days to Meet Goals 10 Frequency of Treatment Frequency Of Treatment Once a Day Treatment Plan Physical Therapy Treatment Plan Bed Mobility Training,Transfer Training,Gait Training, Therapeutic Exercise,Balance Retraining,Discharge Planning, Hot or Cold Pack,Neuromuscular Re-ed,Coordination Retraining ,Manual Therapy Precautions Other Precautions BP; falls Recommendations To Nursing Amount of Assist Needed 2 Person Assist Discharge Recommendations PT Discharge Recommendations Home with 29/11 Assist Available,Home Health,SNF Rehab,Home vs SNF Transportation Needs at Discharge Private Vehicle,Wheelchair/ Cabulance
--- NOTE | 2024-04-13 15:48 | CM.DPNOTE ---
DCP Cont Reviewed chart. Patient discussed in multidisciplinary rounds. Patient is improving clinically and walking with nursing- no need for PT/OT eval. Dr Patel is anticipating discharge over the next 24-48 hrs. Jose D WILSON has accepted this patient on to their services. Notify Alpha when patient is discharged. Plan: Discharge home w/sp anticipated via spouse to transport. Jose D WILSON RN/PT/OT/DATA INTEGRATION ARCHITECT AIDA
[2024-04-13] MEDS: FINASTERIDE 5 MG TABLET PO (21:14)
[2024-04-13] MEDS: TAMSULOSIN 0.4 MG CAPSULE 0.8 MG PO (21:15)
[2024-04-13] MEDS: IPRATROPIUM 0.06% NASAL 15 ML 1 SPRAY NASAL (21:18)
[2024-04-14] VITALS (39 sets, daily range): BP systolic 60–147; BP diastolic 36–81; PULSE 75–151; RESP 11–38; TEMP 36.2–36.4; O2SAT 91–99
[2024-04-14 05:00] LABS: Add Manual Diff / Slide Review NO; Basophils Absolute Auto 0 /uL (0-100); Basophils Percent Auto 0.8 % (0-2); Eosinophils Absolute Auto 100 /uL (0-450); Hematocrit 31.1 % (41-53); Hemoglobin 10.1 g/dL (13.5-17.5); Lymphocytes Absolute Auto 800 /uL (1100-4500); Lymphocytes Percent Auto 13.4 % (25-40); Mean Corpuscular HGB Conc 32.4 % (30-36); Mean Corpuscular Hemoglobin 31.2 PG (26-34); Mean Corpuscular Volume 96.3 fL (80-100); Monocytes Absolute Auto 700 /uL (0-900); Monocytes Percent Auto 12.1 % (3-14); Neutrophils Absolute Auto 4100 /uL (1500-7000); Neutrophils Percent Auto 71.7 % (50-75); Platelet Count 139 X10^3/uL (150-400); Red Blood Cell Count 3.23 X10^6/uL (4.5-5.9); Red Cell Distribution Width 20.6 % (11.6-14.8); White Blood Cell Count 5.8 X10^3/uL (4.5-11.0)
[2024-04-14 05:13] LABS: BUN Creatinine Ratio 18.3 (6-22); Blood Urea Nitrogen 19 mg/dL (9-20); Calcium 8.8 mg/dL (8.4-10.2); Carbon Dioxide 21 mmol/L (22-32); Chloride 110 mmol/L (98-107); Estimated Glomerular Filt Rate > 60 mL/min (>60); Glucose 84 mg/dL (80-110); HEMOLYSIS < 15 (0-50); Potassium 3.9 mmol/L (3.4-5.1); Sodium 134 mmol/L (137-145)
[2024-04-14 06:11] LABS: Anisocytosis 2+; Macrocytosis 2+; Platelet Estimate Decreased on smear; Target Cells 1+
[2024-04-14] MEDS: POTASSIUM CHLORIDE 20 MEQ TAB 40 MEQ PO ×2 (08:18→16:30)
[2024-04-14] MEDS: METOPROLOL IR 25 MG TABLET 12.5 MG PO (08:18)
[2024-04-14] MEDS: DOXYCYCLINE HYCLATE 100 MG TABLET PO ×2 (08:18→21:05)
[2024-04-14] MEDS: GABAPENTIN 100 MG CAPSULE PO ×3 (08:18→21:05)
[2024-04-14] MEDS: allopurinoL 100 MG TABLET 300 MG PO (08:19)
[2024-04-14] MEDS: AMIODARONE 200 MG TABLET 400 MG PO (08:19)
[2024-04-14] MEDS: APIXABAN 5 MG TABLET PO ×2 (08:19→21:07)
[2024-04-14] MEDS: IPRATROPIUM 0.06% NASAL 15 ML 1 SPRAY NASAL (08:20)
[2024-04-14] MEDS: ACETAMINOPHEN 325 MG TABLET 975 MG PO ×3 (08:39→23:05)
[2024-04-14] MEDS: ALBUTEROL 2.5 MG/3 ML NEB (ADULT) INH ×2 (09:10→22:40)
--- NOTE | 2024-04-14 09:37 | EKG_ITS ---
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
[2024-04-14] MEDS: METOPROLOL IR 25 MG TABLET PO ×2 (09:47→21:05)
[2024-04-14] MEDS: DIGOXIN 500 MCG/2 ML AMPUL IV (09:47)
--- NOTE | 2024-04-14 09:48 | DI.ECHO.S_ITS ---
[facility] : : [address] : : [place] : : [id number] : : Phone: [phone] Echocardiogram Report + + :Name: AMITA JIMENEZ Study Date: 04/14/2024 Height: 69 in : :[facility] ReadingLocation: Weight: 163 lb : : Gender: Male BSA: 1.9 m2 : :: 1935 Age: 88 yrs BP: 136/75 mmHg: :Reason For Study: VTACHY : :Ordering Physician: NAHEED, : :JOSH Performed By: Jillian Flores : :Referring: JOSH FARFAN : + + Interpretation Summary The patient was in atrial fibrillation with controlled ventricular rate during the exam. The left ventricle is normal in size and wall thickness. Left ventricular ejection fraction is estimated to be 55 +/- 5%. Previous LVEF 50 to 55%. The right ventricle is mildly dilated. The right ventricular systolic function is normal. There is moderate tricuspid regurgitation. Compared to the prior echo exam, there has been no change in TR severity. The right ventricular systolic pressure is estimated to be at least 55 mmHg based on an estimated right atrial pressure of 8 mm Hg. Previously 38 mmHg. Procedure: Images were not obtained from all of the standard acoustic windows due to the limited scope of the study. The study quality was technically difficult. Comparison is made with the echocardiogram of 12/01/2022. Patient wearing cardioversion patches during exam, difficulty accessing windows. The heart rate ranged between 78-88 bpm during the study. The patient was in atrial fibrillation with controlled ventricular rate during the exam. Left Ventricle: The left ventricle is normal in size and wall thickness. There is no thrombus. Left ventricular ejection fraction is estimated to be 55 +/- 5%. Septal motion is consistent with conduction abnormality. Right Ventricle: The right ventricle is mildly dilated. The right ventricular systolic function is normal. Atria: The left atrium is severely dilated. There has been no significant change since the previous study. The right atrium is moderately dilated. Tricuspid Valve: The tricuspid valve is normal. There is moderate tricuspid regurgitation. The right ventricular systolic pressure is estimated to be at least 55 mmHg based on an estimated right atrial pressure of 8 mm Hg. Compared to the prior echo exam, there has been no change in TR severity. Great Vessels: The IVC is dilated (diameter is greater than 2.1 cm) yet it collapses greater than 50% with a sniff. This suggests a right atrial pressure of 8 mm Hg. Pericardium/ Pleura There is an anterior echo-free space consistent with a fat pad. MMode/2D Measurements & Calculations LVIDd: 3.5 cm LA A4 area: 25.4 cm2 LVIDs: 2.5 cm LA length (vol): 5.7 cm FS: 29.1 % IVSd: 0.96 cm LVPWd: 1.0 cm LV arias. diameter/BSA (cm/m^2): 1.9 LV sys. diameter/BSA (cm/m^2): 1.3 RA long axis: 6.5 cm RVD1 (basal): 4.2 cm RA area: 25.5 cm2 RVD2 (mid): 2.5 cm RA vol: 85.1 ml RA : 44.9 ml/m2 IVC diam: 2.1 cm Doppler Measurements & Calculations TR max kathleen: 342.5 cm/sec TR max P.9 mmHg Reading Physician:02:19 PM
[2024-04-14] MEDS: AMIODARONE 360 MG/200 ML PIGGYBACK 16.7 MG IV ×2 (09:58→19:15)
--- NOTE | 2024-04-14 10:09 | PC.NURSE ---
0854 Pt had 7 beat run of v tach and physician notified. 0924 pt up to bedside commode, became hypotensive and tachycardic to 200. Assisted pt back to bed. Pt then noted on bedside monitor to be in v tach with a rate of 120 and shortness of breath. Continued to be alert and have a pulse. Physician notified and came to bedside. Pt DNR but consented to have shock if necessary, pads applied but not used. See new orders from physician.
[2024-04-14 10:18] LABS: HEMOLYSIS < 15 (0-50); Magnesium 1.7 mg/dL (1.6-2.3); Potassium 4.1 mmol/L (3.4-5.1)
[2024-04-14 10:29] LABS: Troponin I < 0.012 ng/mL (0.01-0.034)
--- NOTE | 2024-04-14 11:44 | PT-IP ANOTE ---
Per nursing pt is not medically stable for PT. PT will check on pt tomorrow.
[2024-04-14] MEDS: MULTIVITAMIN 1 TABLET 1 TAB PO (11:54)
[2024-04-14] MEDS: MAGNESIUM CHLORIDE 64 MG TABLET 128 MG PO (11:54)
--- NOTE | 2024-04-14 13:16 | CM.DPNOTE ---
DCP note ELECTRONIC RESOURCES LIBRARIAN reviewed EMR. pt discussed in morning rounds. Per provider/nursing team. pt had a run of v tach this morning. Echo pending. BLANCA Tuesday vs Tuesday now pending medical stability. not stable to work with PT today. Jose D WIL[facility] has accepted this patient on to their services. Notify Jose D when patient is discharged. Plan: Discharge home w/sp anticipated via spouse to transport. Jose D WILSON RN/PT/OT/STELLA Cai
--- NOTE | 2024-04-14 13:37 | PM.PN.1 ---
Subjective Subjective Date Patient Seen: 04/14/24 Time Patient Seen: 08:40 Interval history: Summary: The patient has a history of COPD, atrial fibrillation, pulmonary hypertension, CAD, and CHF who presents with progressive weakness and hypotension. He was recently admitted to [facility] on March 27 and discharged on the . At that time he had hypotension when which responded to fluids. Today, the patient has hypotension and atrial fib with a response in the 120s. The ED physician discussed this with Dr. Ray who recommended an amiodarone infusion. The patient denies overt leg swelling, cough, or orthopnea. He did feel quite dizzy over the last 2 days. He does live with his , on [facility]. He denies any palpitations, or chest pain. No nausea, vomiting, or diarrhea. His appetite has been stable. He was being treated for a left great toe wound and wound care in [place] and is being treated for chronic osteomyelitis by Dr. Torres of Infectious Disease at [facility]. He was his wound inspected and rewrapped once a week, 04/11. He was feeling a bit better but did have some orthopnea which improved with sitting up. He was some dyspnea on exertion. We did give him Lasix IV this morning. He denies any chest pain, he was in AFib with good rate control. He was completed an amiodarone infusion is now on amiodarone orally. I did speak with his inspector technician, Dr. Ray. We placed him on low-dose metoprolol 12.5 b.i.d.. He was hoping to avoid digoxin as the patient has periodic LATIA. The patient does have chronic osteo with once a week dressing changes of the left foot and has a small ulceration on the right foot and left forearm which we will have dressing changes today. He does have intermittent dysphagia in his has requested a speech evaluation if possible. We will also have Physical therapy evaluate him. The patient is typically taking Lasix 20 mg 3 times a week at home and he was to have a fairly labile volume status situation where he can either become overloaded or volume depleted quite easily. He was given Lasix today and he will likely go home on Lasix either 3 times a week or possibly 4 times a week at 20 mg a day. He was on [facility], as possible he would little to discharge on Tuesday, more likely on Tuesday. Interval history: The patient appeared calm and comfortable this morning, with atrial fibrillation with heart rates in the 100s to 120 range at rest, however developed ventricular tachycardia at 120 beats per minute with blood pressure of 63/39 transiently, improving to 102/56. This provider presented to the bedside immediately and patient was alert, appropriate and indicated that he would wish defibrillation if awake and indicated, however, if he became unconscious or pulseless would not wish CPR/defibrillation, and in that case would wish for his do not resuscitate code status to be implemented. He states this with his and nursing staff present, and states he understands the implication of this decision. Fortunately, he converted to atrial fibrillation. Dr. Penny esposito of Cardiology was consulted and recommended switching oral amiodarone back to intravenous. He was given 0.5 mg of IV digoxin and metoprolol increased to 25 mg b.i.d. Exam Vital Signs (past 8 hours): - 04/14/24 07:00 04/14/24 08:00 04/14/24 09:47 Temperature 97.5 F L Pulse Rate 118 H 113 H Respiratory Rate 20 Blood Pressure 115/81 102/56 L Pulse Oximetry 94 Oxygen Delivery Method Room Air Fraction of Inspired Oxygen 21 SaO2/FiO2 Ratio 461 Oxygen Delivery Method Room Air Oxygen Flow Rate 0 Narrative Exam Narrative: NAD, alert and oriented. Fluent speech. Lungs are clear, normal rate and effort. Heart is irregular, no murmur gallop or rub. Abdomen is soft, non distended. Extremities are free of edema. The left foot is wrapped. He does have a wrapping around his right foot 2nd toe. Objective Labs 04/14/24 04:10 04/14/24 09:55 Labs: Laboratory Results - last 24 hr 04/14/24 04/14/24 04:10 09:55 WBC 5.8 RBC 3.23 L Hgb 10.1 L Hct 31.1 L MCV 96.3 MCH 31.2 MCHC 32.4 RDW 20.6 H Plt Count 139 L Neut % (Auto) 71.7 Lymph % (Auto) 13.4 L Howard % (Auto) 12.1 Eos % (Auto) 2.0 Baso % (Auto) 0.8 Neut # (Auto) 4100 Lymph # (Auto) 800 L Howard # (Auto) 700 Eos # (Auto) 100 Baso # (Auto) 0 Platelet Estimate Decreased on smear RBC Morphology See below Anisocytosis 2+ H Macrocytosis 2+ H Target Cells 1+ H Sodium 134 L Potassium 3.9 4.1 Chloride 110 H Carbon Dioxide 21 L BUN 19 Creatinine 1.04 Estimated GFR > 60 BUN/Creatinine Ratio 18.3 Glucose 84 Calcium 8.8 Magnesium 1.7 Troponin I < 0.012 [facility] 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 [facility] (current) use of systemic steroids Rheumatoid arthritis Sequela of lacunar infarction COPD (chronic obstructive pulmonary disease) Ankle pain Mumps Measles Chicken pox Hemorrhoid Anticoagulation goal of INR 2 to 3 Age related cataract Pericarditis Cholelithiasis Polymyalgia rheumatica History of tobacco use Obesity History of gastric ulcer Hyperlipidemia Hypertension Gout Chronic anticoagulation Atrial fibrillation Surgical History Anesthesia History of ankle surgery (~1965) History of appendectomy (~2018) History of tonsillectomy (~1944) History of cataract removal with insertion of prosthetic lens History of laparotomy (~1999) Family History Mother Hypertension Heart disease Diabetes mellitus Hyperlipidemia Father Hypertension Hyperlipidemia Grandmother Pneumonia Social History marital status: household members: spouse occupational status: previously employed Smoking Status: Former smoker alcohol intake: current substance use type: does not use Assessment & Plan Assessment & Plan narrative: 1. Atrial fibrillation with rapid response, present on admission and improving. He was taking good rate control with the addition of metoprolol and conversion to oral amiodarone on April 12. 2. Acute hypoxic respiratory failure, present on admission and resolved. Negative respiratory panel. Negative troponin. Still had some dyspnea on exertion orthopnea on April 13. 3. Probable acute on chronic diastolic heart failure, present on admission and improved. We will additionally diurese him today. 4. Ventricular tachycardia. New presentation. Etiology unclear. COPD, present on admission and likely stable. 5. Chronic anticoagulation, present on admission stable. 6. Pulmonary hypertension, present on admission and active. 7. Hypertension with recent soft blood pressures, present on admission and active. 8. Mild lactic acidosis, present on admission and improved. 9. Hypokalemia, new and corrected. 10. Hypomagnesemia. Replete. Plan: -discussed management with Dr. Ray at time of admission as well as April 12, and Dr. Sinha on 04/14. -IV amiodarone infusion -metoprolol 25 b.i.d. -IV digoxin 0.5mg x 1 dose -replete magnesium -echocardiogram -discussed with Dr. Sinha today. He wants to use low dose BB and avoind digoxin for now. -continue Lasix TIW for now. He may need an additional IV dose of Lasix on Tuesday prior to discharge. He may require escalating his Lasix to 4 days a week instead of 3. DNR Anticipate 2 midnight need for hospital services, the supports inpatient status. His will be here in the morning of Tuesday and they live on [facility]. Quality VTE Deep Vein Thrombosis/Pulmonary Embolism Present on Admission: No PROFEE Charge codes Subsequent inpatient/observation care: 51896
[2024-04-14] MEDS: MAGNESIUM SULFATE 2 GM/50 ML PIGGYBACK IV (14:16)
[2024-04-14] MEDS: CALCIUM CARBONATE 500 MG TAB PO ×2 (15:44→18:00)
[2024-04-14] MEDS: FINASTERIDE 5 MG TABLET PO (21:05)
[2024-04-14] MEDS: TAMSULOSIN 0.4 MG CAPSULE 0.8 MG PO (21:05)
[2024-04-15] VITALS (28 sets, daily range): BP systolic 87–122; BP diastolic 53–79; PULSE 71–98; RESP 14–42; TEMP 36.4–36.9; O2SAT 88–99
[2024-04-15] MEDS: ALBUTEROL 2.5 MG/3 ML NEB (ADULT) INH ×2 (01:56→11:47)
[2024-04-15 04:40] LABS: Add Manual Diff / Slide Review NO; Basophils Absolute Auto 100 /uL (0-100); Basophils Percent Auto 1.1 % (0-2); Eosinophils Absolute Auto 100 /uL (0-450); Eosinophils Percent Auto 1.9 % (2-4); Hematocrit 32.5 % (41-53); Hemoglobin 10.5 g/dL (13.5-17.5); Lymphocytes Absolute Auto 700 /uL (1100-4500); Lymphocytes Percent Auto 11.6 % (25-40); Mean Corpuscular HGB Conc 32.4 % (30-36); Mean Corpuscular Hemoglobin 31.5 PG (26-34); Mean Corpuscular Volume 97.1 fL (80-100); Monocytes Absolute Auto 600 /uL (0-900); Monocytes Percent Auto 10.6 % (3-14); Neutrophils Absolute Auto 4200 /uL (1500-7000); Neutrophils Percent Auto 74.8 % (50-75); Platelet Count 130 X10^3/uL (150-400); Red Blood Cell Count 3.34 X10^6/uL (4.5-5.9); Red Cell Distribution Width 20.7 % (11.6-14.8); White Blood Cell Count 5.6 X10^3/uL (4.5-11.0)
[2024-04-15 04:52] LABS: BUN Creatinine Ratio 19.6 (6-22); Blood Urea Nitrogen 19 mg/dL (9-20); Calcium 8.4 mg/dL (8.4-10.2); Carbon Dioxide 22 mmol/L (22-32); Chloride 107 mmol/L (98-107); Estimated Glomerular Filt Rate > 60 mL/min (>60); Glucose 84 mg/dL (80-110); HEMOLYSIS < 15 (0-50); Potassium 4.1 mmol/L (3.4-5.1); Sodium 132 mmol/L (137-145)
[2024-04-15 04:56] LABS: Anisocytosis 2+; Macrocytosis 2+; Target Cells 1+
[2024-04-15 05:04] LABS: Troponin I < 0.012 ng/mL (0.01-0.034)
[2024-04-15] MEDS: AMIODARONE 360 MG/200 ML PIGGYBACK 16.7 MG IV ×2 (07:58→18:34)
[2024-04-15] MEDS: APIXABAN 5 MG TABLET PO ×2 (08:50→21:12)
[2024-04-15] MEDS: POTASSIUM CHLORIDE 20 MEQ TAB 40 MEQ PO ×2 (08:50→16:27)
[2024-04-15] MEDS: GABAPENTIN 100 MG CAPSULE PO ×3 (08:50→21:12)
[2024-04-15] MEDS: DOXYCYCLINE HYCLATE 100 MG TABLET PO ×2 (08:50→21:11)
[2024-04-15] MEDS: ACETAMINOPHEN 325 MG TABLET 975 MG PO ×3 (08:50→23:18)
[2024-04-15] MEDS: allopurinoL 100 MG TABLET 300 MG PO (08:50)
[2024-04-15] MEDS: METOPROLOL IR 25 MG TABLET PO (08:51)
[2024-04-15] MEDS: IPRATROPIUM 0.06% NASAL 15 ML 1 SPRAY NASAL ×2 (08:52→21:12)
--- NOTE | 2024-04-15 10:39 | PT-IP ANOTE ---
Discussed pt in rounds today. He had episode of vtach yesterday and con't treatment today. Provider recommends hold PT today.
--- NOTE | 2024-04-15 11:15 | PM.PN.1 ---
Subjective Subjective Date Patient Seen: 04/15/24 Time Patient Seen: 11:00 Interval history: Summary: The patient has a history of COPD, atrial fibrillation, pulmonary hypertension, CAD, and CHF who presents with progressive weakness and hypotension. He was recently admitted to [facility] on March 27 and discharged on the . At that time he had hypotension when which responded to fluids. Today, the patient has hypotension and atrial fib with a response in the 120s. The ED physician discussed this with Dr. Ray who recommended an amiodarone infusion. The patient denies overt leg swelling, cough, or orthopnea. He did feel quite dizzy over the last 2 days. He does live with his , on [facility]. He denies any palpitations, or chest pain. No nausea, vomiting, or diarrhea. His appetite has been stable. He was being treated for a left great toe wound and wound care in [place] and is being treated for chronic osteomyelitis by Dr. Torres of Infectious Disease at [facility]. He was his wound inspected and rewrapped once a week, 04/11. He was feeling a bit better but did have some orthopnea which improved with sitting up. He was some dyspnea on exertion. We did give him Lasix IV this morning. He denies any chest pain, he was in AFib with good rate control. He was completed an amiodarone infusion is now on amiodarone orally. I did speak with his maintenance mechanic technician, Dr. Ray. We placed him on low-dose metoprolol 12.5 b.i.d.. He was hoping to avoid digoxin as the patient has periodic LATIA. The patient does have chronic osteo with once a week dressing changes of the left foot and has a small ulceration on the right foot and left forearm which we will have dressing changes today. He does have intermittent dysphagia in his has requested a speech evaluation if possible. We will also have Physical therapy evaluate him. The patient is typically taking Lasix 20 mg 3 times a week at home and he was to have a fairly labile volume status situation where he can either become overloaded or volume depleted quite easily. He was given Lasix today and he will likely go home on Lasix either 3 times a week or possibly 4 times a week at 20 mg a day. He was on [facility], as possible he would little to discharge on Tuesday, more likely on Tuesday. Interval history: The patient had a 7 beat run of V-tach this morning, asymptomatic. He feels very short of breath. He had a feeling of heaviness in his chest last night. Appears calm and comfortable this morning, with atrial fibrillation with heart rates in the 80s to 90s on telemetry. Recall on 04/14 he had ventricular tachycardia at 120 beats per minute with blood pressure of 63/39 transiently, improving to 102/56 and was switched back on to and IV amiodarone infusion. He stated then and again this morning he would wish defibrillation if awake and indicated, however, if he became unconscious or pulseless would not wish CPR/defibrillation, and in that case would wish for his do not resuscitate code status to be implemented. Exam Vital Signs (past 8 hours): - 04/15/24 04:00 04/15/24 04:00 04/15/24 05:00 Temperature Pulse Rate 85 Respiratory Rate 30 H Blood Pressure 101/56 L 109/59 L Pulse Oximetry 97 Oxygen Delivery Method 04/15/24 05:00 04/15/24 06:00 04/15/24 06:00 Temperature Pulse Rate 80 84 Respiratory Rate 16 24 Blood Pressure 116/60 Pulse Oximetry 97 95 Oxygen Delivery Method 04/15/24 07:00 04/15/24 07:00 04/15/24 07:00 Temperature Pulse Rate 84 Respiratory Rate 21 Blood Pressure 107/60 Pulse Oximetry 96 Oxygen Delivery Method Nasal Cannula 04/15/24 08:00 04/15/24 08:00 04/15/24 09:00 Temperature 97.6 F Pulse Rate 84 Respiratory Rate 30 H Blood Pressure 122/72 109/61 Pulse Oximetry 97 Oxygen Delivery Method 04/15/24 09:00 Temperature Pulse Rate 81 Respiratory Rate 14 Blood Pressure Pulse Oximetry 96 Oxygen Delivery Method Fraction of Inspired Oxygen 93 SaO2/FiO2 Ratio 461 Oxygen Delivery Method Nasal Cannula Oxygen Flow Rate 0 Narrative Exam Narrative: NAD, alert and oriented. Fluent speech. Lungs are clear, normal rate and effort. Heart is irregular, no murmur gallop or rub. Abdomen is soft, non distended. Extremities are free of edema. The left foot is wrapped. He does have a wrapping around his right foot 2nd toe. Objective Imaging Echocardiogram 04/14/2024:: Radiologist's impression: The patient was in atrial fibrillation with controlled ventricular rate during the exam. The left ventricle is normal in size and wall thickness. Left ventricular ejection fraction is estimated to be 55 +/- 5%. Previous LVEF 50 to 55%. The right ventricle is mildly dilated. The right ventricular systolic function is normal. There is moderate tricuspid regurgitation. Compared to the prior echo exam, there has been no change in TR severity. The right ventricular systolic pressure is estimated to be at least 55 mmHg based on an estimated right atrial pressure of 8 mm Hg. Previously 38 mmHg. Labs 04/15/24 03:55 04/15/24 03:55 Labs: Laboratory Results - last 24 hr 04/15/24 03:55 WBC 5.6 RBC 3.34 L Hgb 10.5 L Hct 32.5 L MCV 97.1 MCH 31.5 MCHC 32.4 RDW 20.7 H Plt Count 130 L Neut % (Auto) 74.8 Lymph % (Auto) 11.6 L Glenn % (Auto) 10.6 Eos % (Auto) 1.9 L Baso % (Auto) 1.1 Neut # (Auto) 4200 Lymph # (Auto) 700 L Glenn # (Auto) 600 Eos # (Auto) 100 Baso # (Auto) 100 RBC Morphology Not Reportable Anisocytosis 2+ H Macrocytosis 2+ H Target Cells 1+ H Sodium 132 L Potassium 4.1 Chloride 107 Carbon Dioxide 22 BUN 19 Creatinine 0.97 Estimated GFR > 60 BUN/Creatinine Ratio 19.6 Glucose 84 Calcium 8.4 Troponin I < 0.012 [facility] Medical History Age related cataract Ankle pain Anticoagulation goal of INR 2 to 3 Atrial fibrillation Chicken pox Cholelithiasis Chronic anticoagulation COPD (chronic obstructive pulmonary disease) Gout Hemorrhoid History of gastric ulcer History of tobacco use Hyperlipidemia Hypertension retirement (current) use of immunosuppressive biologic retirement (current) use of systemic steroids Measles Mumps Obesity Pericarditis Polymyalgia rheumatica Rheumatoid arthritis Sequela of lacunar infarction Surgical History Anesthesia History of ankle surgery (~1965) History of appendectomy (~2018) History of tonsillectomy (~1944) History of cataract removal with insertion of prosthetic lens History of laparotomy (~1999) Family History Mother Hypertension Heart disease Diabetes mellitus Hyperlipidemia Father Hypertension Hyperlipidemia Grandmother Pneumonia Social History marital status: household members: spouse occupational status: previously employed Smoking Status: Former smoker alcohol intake: current substance use type: does not use Assessment & Plan Assessment & Plan narrative: 1. Atrial fibrillation with rapid response, present on admission and improving. He was taking good rate control with the addition of metoprolol and conversion back to IV amiodarone on April 14 given V-tach. 2. Acute hypoxic respiratory failure, present on admission and resolved. Negative respiratory panel. Negative troponin. Still had some dyspnea on exertion orthopnea on April 13. 3. Probable acute on chronic diastolic heart failure, present on admission and improved. Add furosemide 40 mg daily IV given increased shortness breath and chest pressure and monitor for hypotension. 4. Ventricular tachycardia. New presentation on 04/14. Etiology unclear, suspect underlying ischemic cardiomyopathy. He would be open to intervention for treatment of obstructive ischemic cardiomyopathy as an underlying cause. 5. COPD, present on admission and likely stable. 6. Chronic anticoagulation, present on admission stable. 7. Presumed underlying coronary disease, rule out ischemic cardiomyopathy. Unremarkable echocardiogram 04/14/2024 with EF 55% and no wall motion abnormalities. He is ruled out for myocardial infarction by enzymes to date. Monitor serial cardiac enzymes. 8. Pulmonary hypertension, present on admission and active. 9. Hypertension with recent soft blood pressures, present on admission and active. 10. Hyperlipidemia. Start high-intensity atorvastatin 40 mg daily (avoid higher dosing given amiodarone interaction). 11. Mild lactic acidosis, present on admission and improved. 12. Hypokalemia, new and corrected. 13. Hypomagnesemia. Repleted. Monitor. 14. Chronic left toe osteomyelitis. Continue doxycycline. Plan: -discussed management with Dr. Ray at time of admission as well as April 12, and Dr. Sinha on 04/14. -IV amiodarone infusion, reassess tomorrow, consider transfer for coronary angiography for ischemic workup given ventricular tachycardia -atorvastatin 40mg daily -metoprolol 25 b.i.d. -IV digoxin 0.5mg x 1 dose on 04/14 -monitor magnesium -add furosemide 40 mg IV daily. He had been on 3 days weekly dosing previously -continue potassium supplementation and monitor DNR, with discussion as above Anticipate 2 midnight need for hospital services, the supports inpatient status. His continues at bedside. They live on [facility]. Quality VTE Deep Vein Thrombosis/Pulmonary Embolism Present on Admission: No IH PROFEE Charge codes Subsequent inpatient/observation care: [id number]
[2024-04-15] MEDS: ATORVASTATIN 20 MG TABLET 40 MG PO ×2 (11:59→21:11)
[2024-04-15] MEDS: MULTIVITAMIN 1 TABLET 1 TAB PO (11:59)
[2024-04-15] MEDS: FUROSEMIDE 40 MG/4 ML VIAL IV (11:59)
--- NOTE | 2024-04-15 18:29 | PC.NURSE ---
Pt remains on amiodarone infusion and remains in a fib with a rate 80-100. One 7 beat run of v tach noted on monitor in AM, provider notified. Family at bedside throughout morning.
[2024-04-15] MEDS: BUDESONIDE INH (19:40)
[2024-04-15] MEDS: FORMOTEROL INH (19:40)
[2024-04-15] MEDS: TAMSULOSIN 0.4 MG CAPSULE 0.8 MG PO (21:11)
[2024-04-15] MEDS: FINASTERIDE 5 MG TABLET PO (21:12)
[2024-04-16] VITALS (31 sets, daily range): BP systolic 66–120; BP diastolic 45–74; PULSE 80–107; RESP 14–35; TEMP 36.4–37.1; O2SAT 78–100
[2024-04-16 05:04] LABS: Add Manual Diff / Slide Review NO; Basophils Absolute Auto 0 /uL (0-100); Basophils Percent Auto 0.8 % (0-2); Eosinophils Absolute Auto 100 /uL (0-450); Eosinophils Percent Auto 1.2 % (2-4); Hematocrit 34.2 % (41-53); Hemoglobin 11.1 g/dL (13.5-17.5); Lymphocytes Absolute Auto 600 /uL (1100-4500); Lymphocytes Percent Auto 10.2 % (25-40); Mean Corpuscular HGB Conc 32.5 % (30-36); Mean Corpuscular Hemoglobin 31.4 PG (26-34); Mean Corpuscular Volume 96.6 fL (80-100); Monocytes Absolute Auto 600 /uL (0-900); Monocytes Percent Auto 10.6 % (3-14); Neutrophils Absolute Auto 4700 /uL (1500-7000); Neutrophils Percent Auto 77.2 % (50-75); Platelet Count 151 X10^3/uL (150-400); Red Blood Cell Count 3.54 X10^6/uL (4.5-5.9); Red Cell Distribution Width 19.8 % (11.6-14.8)
[2024-04-16 05:11] LABS: Calcium 8.5 mg/dL (8.4-10.2); Carbon Dioxide 24 mmol/L (22-32); Chloride 105 mmol/L (98-107); Glucose 81 mg/dL (80-110); HEMOLYSIS < 15 (0-50); Sodium 130 mmol/L (137-145)
[2024-04-16 05:12] LABS: BUN Creatinine Ratio 20.5 (6-22); Blood Urea Nitrogen 23 mg/dL (9-20); Estimated Glomerular Filt Rate > 60 mL/min (>60); Magnesium 1.9 mg/dL (1.6-2.3); Potassium 4.1 mmol/L (3.4-5.1)
[2024-04-16 05:23] LABS: Troponin I < 0.012 ng/mL (0.01-0.034)
[2024-04-16] MEDS: AMIODARONE 360 MG/200 ML PIGGYBACK 16.7 MG IV ×2 (06:26→18:55)
[2024-04-16] MEDS: BUDESONIDE INH ×2 (08:16→21:15)
[2024-04-16] MEDS: FORMOTEROL INH ×2 (08:16→21:15)
[2024-04-16] MEDS: FUROSEMIDE 40 MG/4 ML VIAL IV (08:35)
[2024-04-16] MEDS: ACETAMINOPHEN 325 MG TABLET 975 MG PO ×3 (08:35→23:46)
[2024-04-16] MEDS: METOPROLOL IR 25 MG TABLET PO (08:36)
[2024-04-16] MEDS: POTASSIUM CHLORIDE 20 MEQ TAB 40 MEQ PO ×2 (08:36→17:58)
[2024-04-16] MEDS: APIXABAN 5 MG TABLET PO ×2 (08:36→20:18)
[2024-04-16] MEDS: GABAPENTIN 100 MG CAPSULE PO ×3 (08:36→20:18)
[2024-04-16] MEDS: allopurinoL 100 MG TABLET 300 MG PO (08:36)
[2024-04-16] MEDS: DOXYCYCLINE HYCLATE 100 MG TABLET PO ×2 (08:36→20:18)
[2024-04-16] MEDS: IPRATROPIUM 0.06% NASAL 15 ML 1 SPRAY NASAL ×2 (08:41→20:19)
--- NOTE | 2024-04-16 09:51 | ST.IPIE ---
Visit Care Team Role Provider Type Michelet Irby MD Primary Care Provider Physician Specialty: Family Practice Address: [address] [place] [address], [id number] Email: [email or web address] Bradly Landa MD Family Provider Non-Staff Specialty: Family Practice Address: [address] [place] [address], [id number] Email: Rachel Beavers MD Emergency Provider Physician Referring Provider Specialty: Emergency Medicine Address: [address] [place] [address], [id number] Email: Ash Patel MD Admit Provider Physician Attending Provider Specialty: Internal Medicine Address: [address] [place] [address], [employer] Email: [email or web address] Diagnoses Acute on chronic diastolic (congestive) heart failure (04/11/24) Past Medical History (Last Reviewed 04/15/24 @ 11:19 by John Taylor MD) Age related cataract (Medical) Ankle pain (Medical) Anticoagulation goal of INR 2 to 3 (Medical) Atrial fibrillation (Medical) Chicken pox (Medical) Cholelithiasis (Medical) Chronic anticoagulation (Medical) COPD (chronic obstructive pulmonary disease) (Medical) Gout (Medical) Hemorrhoid (Medical) History of gastric ulcer (Medical) History of tobacco use (Social Hx) Hyperlipidemia (Medical) Hypertension (Medical) [facility] (current) use of immunosuppressive biologic (Medical) Arava for rheumatoid arthritis 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 El 11/2022 note Measles (Medical) Mumps (Medical) Obesity (Medical) Pericarditis (Medical) Polymyalgia rheumatica (Medical) Rheumatoid arthritis (Medical) per Dr. El 11/2022 note: Stop methotrexate and continue prednisone 5 mg per day. Seropositive. 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 Ash Patel Reason for Referral Hx of dysphagia Visit Type Note Type Initial evaluation Next Note Type Next Note Type Treatment Note Patient Information Identification Type Name,Wristband History Per H&P: The patient has a history of COPD, atrial fibrillation, pulmonary hypertension, CAD, and CHF who presents with progressive weakness and hypotension. He was recently admitted to [facility] on March 27 and discharged on the . At that time he had hypotension when which responded to fluids. Today, the patient has hypotension and atrial fib with a response in the 120s. The ED physician discussed this with Dr. Ray who recommended an amiodarone infusion. The patient denies overt leg swelling, cough, or orthopnea. He did feel quite dizzy over the last 2 days. He does live with his , on [facility]. He denies any palpitations, or chest pain. No nausea, vomiting, or diarrhea. His appetite has been stable. He was being treated for a left great toe wound and wound care in [place] and is being treated for chronic osteomyelitis by Dr. Longo of Infectious Disease at [facility]. He was his wound inspected and rewrapped once a week, this happened yesterday. 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 Subjective Observations Pt awake and alert sitting upright in bed. Pt present at bedside. Pt Ox3 and able to communicate effectively. Pt reports hx of swallow trouble since CVA, which occurred years ago per Pt. Pt reports specifically his swallow difficulties include liquids going the wrong way or trouble swallowing things that divide into timothy particles. Pt vaguely recalls swallow therapy completed years ago and recommendation for Pt to utilize a head turn and chin tuck. Pt had a MBS completed on 09/14/21 at this hospital with diet recommendation regular solids and honey thick liquids. Pt denies PNA this past year. Reported by Patient/Caregiver Other Symptoms Coughing,Difficulty swallowing liquids,Difficulty swallowing solids Current Diet Regular (IDDSI 7) The IDDSI Framework Protocol: IDDSI.1 Objective Assessment Mental Status Alert,Responsive,Cooperative Comment Pt with natural dentition, good condition. Reduced lingual strength and ROM. Adequate labial strength and ROM. Food and Liquid Trials Position During Assessment Upright (90 degrees) Liquids Trialed Thin (IDDSI 0) Solid Trials Soft & Bite-sized (IDDSI 6), Regular (IDDSI 7) Administration Type Cup single sip,Straw,Self- feeding Oral Impairment Mildly impaired Oral Phase Comments Pt consumed 1 jean cracker and 1/4 bagel with cream cheese/jam and about 4 oz of thin water via straw/cup. Pt able to feed self. For solids, Pt demonstrated adequate bite size and rate, prolonged mastication however adequate bolus formation and control, no oral stasis. For thin liquids, Pt exhibited good oral acceptance and containment, adequate sip size and rate. Pharyngeal Impairment Mildly impaired Pharyngeal Phase Comments For solids, Pt denied sensation of food stuck in throat, no coughing/choking/ throat clearing observed with solids. For thin water via straw, Pt exhibited suspected delay in swallow, weak laryngeal elevation, 1x cough reflex. Pt O2 sats dropped to 87 while drinking water and increased to 91 after. For thin water via cup with use of chin tuck strategy, Pt exhibited no overt s/s of aspiration, however cannot rule our silent aspiration without instrumental exam. Fatigue/Endurance Endurance WNL Strategies Attempted Chin tuck The IDDSI Framework Protocol: IDDSI.1 Findings Swallowing Function Oropharyngeal phase dysphagia Severity of Swallow Impairment Mildly-moderately impaired Prognosis Fair Impact on Safety and Functioning Risk for aspiration Recommendations Instrumental Assessment Yes Swallowing Treatment Yes Frequency Daily while inpatient Recommended Solids Regular (IDDSI 7) Recommended Liquids Thin (IDDSI 0) Other Recommendations ST recommends IDDSI 7/IDDSI 0 with use of safe swallowing strategies included below, as well as no straws with use of chin tuck with every drink of liquids. ST also recommends Pt have a MBS completed. Nursing and MD notified. Safety Precautions/Swallowing Remain upright (90 degrees) Recommendations during all oral intake,Upright position at least 30 minutes after meals,Small bites and sips when eating,Slow rate; swallow between bites,No straw ,Alternate liquids and solids, Strict oral care after intake Medication Recommendations As Tolerated,Crushed in Carrier Education Patient/Caregiver Education Described results of evaluation,Patient expressed understanding of evaluation, Family/caregivers expressed understanding of evaluation, Patient requires further education/training,Family/ caregivers require further education/training Goals Short-term Goals Pt will participate in a MBS in order to further guide POC. Pt and family will participate in further education re: swallow therapy, safe swallowing strategies Long-term Goals Pt will be able to tolerate PO intake without overtly demonstrating s/sx of aspiration.
--- NOTE | 2024-04-16 10:40 | PT-IP ANOTE ---
Pt discussed in rounds today and provider recommends hold PT d/t acute cardiac presentation. Since this is the third day of holding therapy, will d/c acute PT. Please reorder if pt becomes medically stable for skilled therapy. Thank you.
--- NOTE | 2024-04-16 12:09 | PM.PN.1 ---
Subjective Subjective Interval history: He had a relatively smooth weekend. He remains quite fatigued. We talked about the possibility of a nursing facility rehabilitation stay. He was strongly opposed to this. Subjective: No dyspnea or chest pain at rest. He does feel a bit lightheaded when standing. He did have fair number of bowel movements over the weekend. He denies any diarrhea. Exam Vital Signs (past 8 hours): - 04/16/24 05:00 04/16/24 05:00 04/16/24 05:00 Temperature Pulse Rate 91 H Respiratory Rate 16 Blood Pressure 103/60 Pulse Oximetry 97 Oxygen Delivery Method Nasal Cannula Oxygen Flow Rate 0 04/16/24 06:00 04/16/24 06:00 04/16/24 07:00 Temperature Pulse Rate 89 Respiratory Rate 15 Blood Pressure 101/59 L 108/57 L Pulse Oximetry 96 Oxygen Delivery Method Oxygen Flow Rate 0 04/16/24 07:00 04/16/24 08:00 04/16/24 08:00 Temperature Pulse Rate 93 H 97 H Respiratory Rate 16 16 Blood Pressure 116/65 Pulse Oximetry 96 95 Oxygen Delivery Method Oxygen Flow Rate 04/16/24 08:00 04/16/24 08:18 04/16/24 09:00 Temperature 97.6 F Pulse Rate 89 Respiratory Rate 15 Blood Pressure 81/62 L Pulse Oximetry 96 Oxygen Delivery Method Room Air Nasal Cannula Oxygen Flow Rate 1 04/16/24 09:00 Temperature Pulse Rate 107 H Respiratory Rate 21 Blood Pressure Pulse Oximetry 97 Oxygen Delivery Method Oxygen Flow Rate Fraction of Inspired Oxygen 97 SaO2/FiO2 Ratio 461 Oxygen Delivery Method Nasal Cannula Oxygen Flow Rate 1 Narrative Exam Narrative: NAD, fluent speech, not on oxygen. Lungs are clear with decreased breath sounds both bases. Heart is irregular and rate controlled. Abdomen is non distended. No leg edema. Objective Labs 04/16/24 04:15 04/16/24 04:15 Labs: Laboratory Results - last 24 hr 04/16/24 04:15 WBC 6.0 RBC 3.54 L Hgb 11.1 L Hct 34.2 L MCV 96.6 MCH 31.4 MCHC 32.5 RDW 19.8 H Plt Count 151 Neut % (Auto) 77.2 H Lymph % (Auto) 10.2 L [place] % (Auto) 10.6 Eos % (Auto) 1.2 L Baso % (Auto) 0.8 Neut # (Auto) 4700 Lymph # (Auto) 600 L [place] # (Auto) 600 Eos # (Auto) 100 Baso # (Auto) 0 Sodium 130 L Potassium 4.1 Chloride 105 Carbon Dioxide 24 BUN 23 H Creatinine 1.12 Estimated GFR > 60 BUN/Creatinine Ratio 20.5 Glucose 81 Calcium 8.5 Magnesium 1.9 Troponin I < 0.012 [facility] Medical History Age related cataract Ankle pain Anticoagulation goal of INR 2 to 3 Atrial fibrillation Chicken pox Cholelithiasis Chronic anticoagulation COPD (chronic obstructive pulmonary disease) Gout Hemorrhoid History of gastric ulcer History of tobacco use Hyperlipidemia Hypertension snf (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) use of systemic steroids Measles Mumps Obesity Pericarditis Polymyalgia rheumatica Rheumatoid arthritis Sequela of lacunar infarction Surgical History Anesthesia History of ankle surgery (~1965) History of appendectomy (~2018) History of tonsillectomy (~1944) History of cataract removal with insertion of prosthetic lens History of laparotomy (~1999) Family History Mother Hypertension Heart disease Diabetes mellitus Hyperlipidemia Father Hypertension Hyperlipidemia Grandmother Pneumonia Social History marital status: household members: spouse occupational status: previously employed Smoking Status: Former smoker alcohol intake: current substance use type: does not use Assessment & Plan Assessment & Plan narrative: 1. Atrial fibrillation with rapid response, present on admission and improving. He was taking good rate control with the addition of metoprolol and conversion back to IV amiodarone on April 14 given V-tach. 2. Acute hypoxic respiratory failure, present on admission and resolved. Negative respiratory panel. Negative troponin. Still had some dyspnea on exertion orthopnea on April 13. 3. Probable acute on chronic diastolic heart failure, present on admission and improved. Add furosemide 40 mg daily IV given increased shortness breath and chest pressure and monitor for hypotension. 4. Ventricular tachycardia. New presentation on 04/14. Etiology unclear, suspect underlying ischemic cardiomyopathy. He would be open to intervention for treatment of obstructive ischemic cardiomyopathy as an underlying cause. 5. COPD, present on admission and likely stable. 6. Chronic anticoagulation, present on admission stable. 7. Presumed underlying coronary disease, rule out ischemic cardiomyopathy. Unremarkable echocardiogram 04/14/2024 with EF 55% and no wall motion abnormalities. He is ruled out for myocardial infarction by enzymes to date. Monitor serial cardiac enzymes. 8. Pulmonary hypertension, present on admission and active. 9. Hypertension with recent soft blood pressures, present on admission and active. 10. Hyperlipidemia. Start high-intensity atorvastatin 40 mg daily (avoid higher dosing given amiodarone interaction). 11. Mild lactic acidosis, present on admission and improved. 12. Hypokalemia, new and corrected. 13. Hypomagnesemia. Repleted. Monitor. 14. Chronic left toe osteomyelitis. Continue doxycycline. Discussed the situation with Cardiology, Dr. Ray. He was going to talk about the level of care on the next visit. They brought up the fact that he wants to go home with hospice to me when I went to visit today. He would much rather at home on [place] than in a facility. He understands that his could happen at any time. His supports his decision. Plan: -continue current medical support and complete amiodarone infusion. -wound consult for wound dressing changes. -requested hospice referral from social work. -anticipate discharge in 1-2 days back to [place] with hospice. Time-Based Coding :: [TOTAL MINUTES] spent with patient and on the chart (including review of chart, obtaining history, exam, reviewing outside data, placing orders, documenting exam and treatment plan, and counseling patient) on [DATE]. Quality VTE Deep Vein Thrombosis/Pulmonary Embolism Present on Admission: No
--- NOTE | 2024-04-16 13:37 | DIET.CONS ---
Dietary Consultation Note Admission Date: 04/11/2024 12:42 Assessment: 88 y M presented with increased weakness and SOB. RD screened for LOS. Met with pt for assessment before update in plan of care. Per hospitalist note today, plan of care is now home with hospice. Pt reports decreased appetite in hospital, but normal intakes at home. They follow a low sodium diet at home. No nutritional interventions at this time. Updated plan of care is home with hospice. Ht: 175.26 cm Wt: 70.5 kg BMI: 24.2 UBW: 72.7 kg per pt, 74.106 kg on 01/20/24 (-4.7% weight loss in 3 months, non-severe) Last BM: 04/15/24 (04/15/24 14:10) MNA: 14 Tim Score: 17 Diet: 04/11/24 Lunch General (Regular) Diet Diet Modifications: Food Texture: Level 7 - Regular Liquid Consistency: Level 0 - Thin Nutrition Percent Meal Consumed 25% 04/15/24 18:36 Percent Meal Consumed 0% 04/15/24 18:00 Labs: RBC 3.54 X10^6/uL (4.5-5.9) L 04/16/24 04:15 Hgb 11.1 g/dL (13.5-17.5) L 04/16/24 04:15 Hct 34.2 % (41-53) L 04/16/24 04:15 Creatinine 1.12 mg/dL (0.66-1.25) 04/16/24 04:15 Lactate 1.6 mmol/L (0.7-2.1) 04/11/24 10:42 NT-Pro-B Natriuret Pep 4280 pg/mL (<450) H 04/11/24 08:38 Electronically Signed by: Renee Rhodes 04/16/24 13:37 Clinical Diet[address] [address]
--- NOTE | 2024-04-16 13:59 | CM.DPC ---
DCP Cont: Per MD, pt to have Modified Barium Swallow tomorrow with ST and consulting with pt's Staff Forester for recommendations. Pt and spouse also interested in possible Hospice. SW met bedside with pt and spouse and explained role and discussed differences between HH and Hospice and pt confirms his goal is to remain home and comfortable and not a burden to his spouse and to have quality of life. Pt and spouse though want to discuss further with Staff Forester to determine if pacemaker an option to improve quality of life or not first before making decisions. Agreeable to [facility] referral for Info Visit and requesting in-person visit if possible bedside as spouse has been rooming in with patient since they live on [place]. Pt and spouse agreeable to starting with [facility] at d/c while waiting for more information from Staff Forester and medical options and aware that they will need to hire private CG once home especially if Hospice enrolled. SHIKHA made [facility] referral and called intake to request in-person bedside visit prior to likely d/c Tuesday if stable and they will review their schedule to confirm if this is an option and will call spouse to confirm. SHIKHA updated [facility] on plan of d/c home with spouse and HH this week on maybe Tuesday. STELLA Guajardo
[2024-04-16] MEDS: MULTIVITAMIN 1 TABLET 1 TAB PO (15:55)
--- NOTE | 2024-04-16 16:06 | P.CONS_ITS ---
History of Present Illness Consult details Date Patient Seen: 04/16/24 Time Patient Seen: 15:20 Chief complaint: SOB, Dizzy Narrative: The patient is an 88-year-old male with diabetes, atrial fibrillation, and COPD who was admitted to the hospital with hypotension and atrial fibrillation. He is routine only followed at the wound center for treatment of diabetic ulcer involving the left hallux, right 2nd toe, and traumatic wound of the left forearm. Patient has been receiving dressing changes with collagen and Puracyn with a football dressing to the left hallux, Hydrofera blue to the right 2nd toe, and Adaptic and Hydrofera blue to the left forearm. He denies having any pain associated with any of these ulcers nor has he noted any unusual drainage. He has not had any fever or chills. He reports a decreased appetite as well as severe weakness and dizziness. Previous arterial Doppler indicated PAD on the left and he was evaluated by vascular surgery and has a follow up appointment with them in the near future. Previous MRI showed evidence for osteomyelitis involving the left 1st distal phalanx and possible osteomyelitis involving the 1st proximal phalangeal head. Cultures have grown Staphylococcus lugdunesis. He is followed by Dr. Torres and has received 1 dose of dalbovancin as well as a prolonged course of doxycycline. Meds Home Medications and Allergies Home Medications Medication Instructions Recorded Confirmed Type multivitamin (One Daily 1 tab PO 1200 05/04/18 04/11/24 History Multivitamin tablet) albuterol sulfate 90 mcg/actuation 2 puff inhalation Q4H PRN 11/07/20 04/11/24 History aerosol inhaler shortness of breath or wheezing acetaminophen 500 mg tablet 1,000 mg PO TID PRN Pain (Scale 08/25/21 04/11/24 History (Tylenol Extra Strength) Score 1-3) apixaban 5 mg tablet (Eliquis) 5 mg PO BID Atrial fibrillation 02/08/22 04/11/24 Rx CVA #180 tabs folic acid 800 mcg tablet 800 mcg PO 1200 11/30/22 04/11/24 History leflunomide 20 mg tablet 20 mg PO DAILY 02/28/23 04/11/24 History cholecalciferol (vitamin D3) 25 25 mcg PO 1200 04/05/23 04/11/24 History mcg (1,000 unit) capsule allopurinol 300 mg tablet 300 mg PO DAILY #90 tabs 06/30/23 04/11/24 Rx lovastatin 40 mg tablet 40 mg PO QPM #90 tabs 07/20/23 04/11/24 Rx tamsulosin 0.4 mg capsule (Flomax) 0.8 mg (2 x 0.4 mg) PO QPM #180 07/20/23 04/11/24 Rx caps budesonide-formoterol HFA 80 2 inh PO BID #30.9 grams 10/04/23 04/11/24 Rx mcg-4.5 mcg/actuation aerosol inhaler (Breyna) finasteride 5 mg tablet 5 mg PO DAILY #90 tabs 02/08/24 04/11/24 Rx famotidine 40 mg tablet (Pepcid) 40 mg PO BEDTIME #90 tabs 02/20/24 04/11/24 Rx gabapentin 100 mg capsule 100 mg PO TID #270 caps 03/12/24 04/11/24 Rx doxycycline hyclate 100 mg capsule 100 mg PO BID 03/30/24 04/11/24 History metoprolol tartrate 25 mg tablet 12.5 mg PO BID 03/30/24 04/11/24 History ipratropium bromide 42 mcg (0.06 2 spray intranasal BID allergy 04/11/24 04/11/24 History %) nasal spray vitamin B complex 1 tab PO 1200 04/11/24 04/11/24 History Allergies Allergy/AdvReac Type Severity Reaction Status Date / Time latex [LATEX] Allergy Mild Rash Verified 03/30/24 15:41 olmesartan AdvReac Severe Dizziness Verified 03/30/24 15:41 levofloxacin AdvReac Intermediate Muscle Pain Verified 03/30/24 15:41 Review of Systems Constitutional Comments: Generalized weakness and dizziness Cardiovascular Comments: No chest pain Respiratory Comments: Shortness of breath with exertion Exam Vital Signs (past 8 hours): - 04/16/24 08:18 04/16/24 09:00 04/16/24 09:00 Temperature 97.6 F Pulse Rate 89 107 H Respiratory Rate 15 21 Blood Pressure 81/62 L Pulse Oximetry 96 97 Oxygen Delivery Method Nasal Cannula Oxygen Flow Rate 1 04/16/24 09:11 04/16/24 09:11 04/16/24 10:00 Temperature Pulse Rate 103 H Respiratory Rate 26 H Blood Pressure 96/53 L 87/51 L Pulse Oximetry 97 Oxygen Delivery Method Oxygen Flow Rate 04/16/24 10:00 04/16/24 11:00 04/16/24 11:00 Temperature Pulse Rate 103 H 93 H Respiratory Rate 17 15 Blood Pressure 84/51 L Pulse Oximetry 97 96 Oxygen Delivery Method Oxygen Flow Rate 04/16/24 12:00 04/16/24 12:00 04/16/24 12:00 Temperature Pulse Rate 86 Respiratory Rate 27 H Blood Pressure 91/62 Pulse Oximetry 98 Oxygen Delivery Method Room Air Oxygen Flow Rate 04/16/24 13:00 04/16/24 13:00 Temperature 97.8 F Pulse Rate 80 Respiratory Rate 18 24 Blood Pressure 91/58 L Pulse Oximetry 94 Oxygen Delivery Method Oxygen Flow Rate Fraction of Inspired Oxygen 97 SaO2/FiO2 Ratio 461 Oxygen Delivery Method Room Air Oxygen Flow Rate 1 Narrative Exam Narrative: Thin elderly male who is alert and oriented, no apparent distress Skin Other: Diabetic ulcer left hallux measures smaller since last visit at the wound center. There is some periwound callus but no erythema, swelling, or purulent drainage. Small ulcer medial aspect of right 2nd toe that also appears to be improved. Open wound dorsal aspect left forearm with good granulation tissue and is almost completely healed. 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 skilled nursing (current) use of systemic steroids Rheumatoid arthritis Sequela of lacunar infarction COPD (chronic obstructive pulmonary disease) Ankle pain Mumps Measles Chicken pox Hemorrhoid Anticoagulation goal of INR 2 to 3 Age related cataract Pericarditis Cholelithiasis Polymyalgia rheumatica History of tobacco use Obesity History of gastric ulcer Hyperlipidemia Hypertension Gout Chronic anticoagulation Atrial fibrillation Surgical History Anesthesia History of ankle surgery (~1965) History of appendectomy (~2018) History of tonsillectomy (~1944) History of cataract removal with insertion of prosthetic lens History of laparotomy (~1999) Family History Mother Hypertension Heart disease Diabetes mellitus Hyperlipidemia Father Hypertension Hyperlipidemia Grandmother Pneumonia Social History marital status: household members: spouse occupational status: previously employed Tobacco & Substance Use Smoking Status: Former smoker alcohol intake: current substance use type: does not use Assessment & Plan Assessment and plan (1) Non-pressure chronic ulcer of other part of left foot with fat layer exposed: Status: Acute (2) Unspecified open wound of left forearm, initial encounter: Status: Acute (3) Type 2 diabetes mellitus with foot ulcer: Status: Acute (4) Peripheral vascular disease, unspecified: Status: Acute (5) Other acute osteomyelitis, left ankle and foot: Status: Acute Assessment & Plan narrative: Ulcers appear to be improved, no sign of active infection. Recommend dressing changes with Hydrofera blue to left hallux and right 2nd toe, continue dressing changes with Adaptic and Hydrofera blue to left forearm, continue protein supplementation, pressure offloading with postop surgical shoe, follow up at wound center after discharge. Time-Based Coding :: [45 MINUTES] spent with patient and on the chart (including review of chart, obtaining history, exam, reviewing outside data, placing orders, documenting exam and treatment plan, and counseling patient) on [04/16/24].
--- NOTE | 2024-04-16 17:37 | PC.NURSE ---
Day Shift Note Patient is alert and oriented x4. Afib CVR in the 80s, continues on amiodarone gtt at this time at 16.7 ml/hr. RA with SpO2 upper 90s. Short of breath with exertion. Dr. Augustin from wound care at bedside. Dressings changed by Elle BARRERA from wound care, hydrofera blue placed to left hallux and secured with tape, curad gauze and hydrofera blue placed to second right toe and secured with tape, and bordered foam dressing placed to left forearm. Dressings to be changed every other day. Assisted pt to side of bed to attempt transfer to chair. Pt reported feeling dizzy, BP 60s/40s, maintained in this range for approx 5 min with no change in BP, assisted back to bed with improvement in BP to low 100s/60s. Denies dizziness. Call light within reach, using appropriately to make needs known.
[2024-04-16] MEDS: FINASTERIDE 5 MG TABLET PO (20:18)
[2024-04-16] MEDS: TAMSULOSIN 0.4 MG CAPSULE 0.8 MG PO (20:18)
[2024-04-16] MEDS: ATORVASTATIN 20 MG TABLET 40 MG PO (20:18)
[2024-04-17] VITALS (22 sets, daily range): BP systolic 64–125; BP diastolic 48–71; PULSE 86–160; RESP 14–39; TEMP 36–36.4; O2SAT 92–96
[2024-04-17] MEDS: AMIODARONE 360 MG/200 ML PIGGYBACK 16.7 MG IV (05:24)
[2024-04-17] MEDS: POTASSIUM CHLORIDE 20 MEQ TAB 40 MEQ PO (09:02)
[2024-04-17] MEDS: ACETAMINOPHEN 325 MG TABLET 975 MG PO ×3 (09:02→23:59)
[2024-04-17] MEDS: IPRATROPIUM 0.06% NASAL 15 ML 1 SPRAY NASAL ×2 (09:03→20:46)
[2024-04-17] MEDS: allopurinoL 100 MG TABLET 300 MG PO (09:03)
[2024-04-17] MEDS: DOXYCYCLINE HYCLATE 100 MG TABLET PO ×2 (09:03→20:39)
[2024-04-17] MEDS: GABAPENTIN 100 MG CAPSULE PO ×3 (09:03→20:39)
[2024-04-17] MEDS: APIXABAN 5 MG TABLET PO ×2 (09:03→20:39)
[2024-04-17] MEDS: BUDESONIDE INH ×2 (10:57→20:45)
[2024-04-17] MEDS: FORMOTEROL INH ×2 (10:57→20:45)
--- NOTE | 2024-04-17 13:09 | CM.DPC ---
Addendum entered by STELLA Guajardo 04/17/24 16:16: ADD: Per Eileen at [facility], confirmed their RN can do SOC tomorrow 04/18 shortly after pt arrives home at 1200. BF Original Note: DCP Home with Hospice Planning: Per , adjusting pt's medications as currently his bp 60/40 and pt not even able to sit up in bed and therefore not able to participate in MBS for swallow test and this was cancelled. Pt and spouse had Hospice Info Visit via phone as no staff available chalo for bedside discussion and pt and spouse in agreement for Hospice and pt would like to d/c home by tomorrow Tue04/18/24. SHIKHA discussed possible transportation options to get home back on [facility] and currently since pt unable to sit up or stand safely due to bp issues, they confirm pt not safe for home via spouse private vehicle. Pt unable to go by w/c van either for sitting up for that distance and unable to ambulate into his home once he arrives. SW discussed non-emergent BLS transport and that insurance might not cover the cost and risk of out of pocket expense and both pt and spouse acknowledge understanding and preference is BLS transport in order to get the pt home safely and into the house once they arrive. SHIKHA called [facility] and stretcher transport scheduled [place] 0900 [place] [address] [facility]. SW provided Priority Board Pass to spouse for her vehicle as well. BLS form completed and signed by and copy placed for scanning and attached caramel cutter machine of bp and AFIB along with current POLST and facesheet and placed on chart. SHIKHA called Eileen at [facility] and updated on time for transport and she confirms they are working to have an RN available for [place] Start of Care tomorrow after pt arrives home around 1200. MD sent meds to [facility] and spouse picking up tonight to have for morning discharge. MD aware of transport time. Pt states his Dtr is flying in from [place] today and will be to their place on [place] in the afternoon once pt arrives home. Spouse still working to set up additional CG on the [place] as well. SHIKHA updated RN and personal computer network engineer. SHIKHA updated [facility] on change of plan. Plan: Patient to d/c home tomorrow Tue04/18/24 via [facility] at 0900 with [facility] to open for start of care. SW to fax d/c summary to [facility] at discharge. STELLA Guajardo
--- NOTE | 2024-04-17 13:23 | SLP.IPNOTE ---
Per RN, pt BPs still extremely low even sitting EOB and pt unable to tolerate sitting upright. Per TRIPLE VALVE MECHANIC note, plan is for pt to d/c on hospice tomorrow, 04/18. Pt not appropriate for MBS at this time; will request cancelling MBS order and CASHIER CHECKER orders given change in POC.
--- NOTE | 2024-04-17 13:26 | P.PN_ITS ---
Subjective Subjective Interval history: Summary: He was admitted for AFib RVR, and dyspnea. He was proving to either be rate controlled and hypotensive or normotensive and tachycardic. He also tends to either be volume overloaded or hypotensive. He was currently finishing out an amiodarone infusion with good rate control. We would to hold his IV diuretics and metoprolol due to persistent hypotension in the last 2 days. He was on IV Lasix over the weekend. He lives on [facility] with his , they have decided to pursue hospice and this plan is to return home by ambulance on April 18. I have put together a simplified medication list and sent his meds to [facility] so that she can pick them up tonight. Dr. Ray of Cardiology and Melissa of Infectious Disease know the plan. S: No chest pain, or dyspnea. He was dizzy with sitting up. No nausea, or vomiting. He wants to return home and understands that he was dying. Exam Vital Signs (past 8 hours): - 04/17/24 06:00 04/17/24 06:00 04/17/24 07:00 Temperature Pulse Rate 95 H Respiratory Rate 21 Blood Pressure 114/61 124/62 Pulse Oximetry 95 Oxygen Delivery Method Oxygen Flow Rate 0 Fraction of Inspired Oxygen 04/17/24 07:00 04/17/24 07:34 04/17/24 08:00 Temperature Pulse Rate 88 93 H Respiratory Rate 18 16 Blood Pressure 122/71 Pulse Oximetry 93 95 Oxygen Delivery Method Room Air Oxygen Flow Rate Fraction of Inspired Oxygen 21 04/17/24 08:00 04/17/24 08:00 04/17/24 09:00 Temperature Pulse Rate 95 H 160 H Respiratory Rate 19 35 H Blood Pressure Pulse Oximetry 95 93 Oxygen Delivery Method Room Air Oxygen Flow Rate Fraction of Inspired Oxygen 04/17/24 09:01 04/17/24 09:01 04/17/24 09:20 Temperature Pulse Rate 111 H Respiratory Rate 22 Blood Pressure 124/71 65/48 L Pulse Oximetry 93 Oxygen Delivery Method Oxygen Flow Rate Fraction of Inspired Oxygen 04/17/24 09:20 04/17/24 09:23 04/17/24 09:23 Temperature Pulse Rate 121 H 118 H Respiratory Rate 39 H 33 H Blood Pressure 64/48 L Pulse Oximetry Oxygen Delivery Method Oxygen Flow Rate Fraction of Inspired Oxygen 04/17/24 09:35 04/17/24 09:35 04/17/24 10:00 Temperature Pulse Rate 105 H Respiratory Rate 24 Blood Pressure 119/68 119/65 Pulse Oximetry Oxygen Delivery Method Oxygen Flow Rate Fraction of Inspired Oxygen 04/17/24 10:00 04/17/24 10:00 04/17/24 11:00 Temperature 97.0 F L Pulse Rate 99 H 96 H Respiratory Rate 21 22 Blood Pressure Pulse Oximetry Oxygen Delivery Method Oxygen Flow Rate Fraction of Inspired Oxygen 04/17/24 11:00 04/17/24 12:00 04/17/24 12:00 Temperature Pulse Rate 101 H Respiratory Rate 24 Blood Pressure 105/56 L 117/60 Pulse Oximetry Oxygen Delivery Method Oxygen Flow Rate Fraction of Inspired Oxygen Fraction of Inspired Oxygen 21 SaO2/FiO2 Ratio 452 Oxygen Delivery Method Room Air Oxygen Flow Rate 0 Narrative Exam Narrative: NAD, alert and oriented. Fluent speech. Lungs are clear, normal rate and effort. Heart is irregular, no murmur gallop or rub. Abdomen is soft, non distended. Extremities are free of edema. 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 steroids Rheumatoid arthritis Sequela of lacunar infarction COPD (chronic obstructive pulmonary disease) Ankle pain Mumps Measles Chicken pox Hemorrhoid Anticoagulation goal of INR 2 to 3 Age related cataract Pericarditis Cholelithiasis Polymyalgia rheumatica History of tobacco use Obesity History of gastric ulcer Hyperlipidemia Hypertension Gout Chronic anticoagulation Atrial fibrillation Surgical History Anesthesia History of ankle surgery (~1965) History of appendectomy (~2018) History of tonsillectomy (~1944) History of cataract removal with insertion of prosthetic lens History of laparotomy (~1999) Family History Mother Hypertension Heart disease Diabetes mellitus Hyperlipidemia Father Hypertension Hyperlipidemia Grandmother Pneumonia Social History marital status: household members: spouse occupational status: previously employed Smoking Status: Former smoker alcohol intake: current substance use type: does not use Assessment & Plan Assessment & Plan narrative: 1. Atrial fibrillation with rapid response, present on admission and improving. He was taking good rate control with the addition of metoprolol and conversion back to IV amiodarone on April 14 given V-tach. 2. Acute hypoxic respiratory failure, present on admission and resolved. Negative respiratory panel. 3. Probable acute on chronic diastolic heart failure, present on admission and improved. Add furosemide 40 mg daily IV given increased shortness breath and chest pressure and monitor for hypotension. 4. Ventricular tachycardia. Underlying ischemic cardiomyopathy. 5. COPD, present on admission and likely stable. 6. Chronic anticoagulation, present on admission stable. 7. Presumed underlying coronary disease, rule out ischemic cardiomyopathy. Unremarkable echocardiogram 04/14/2024 with EF 55% and no wall motion abnormalities. 8. Pulmonary hypertension, present on admission and active. 9. Hypertension with recent soft blood pressures, present on admission and active. 10. Hyperlipidemia. Start high-intensity atorvastatin 40 mg daily (avoid higher dosing given amiodarone interaction). 11. Mild lactic acidosis, present on admission and improved. 12. Hypokalemia, new and corrected. 13. Hypomagnesemia. Repleted. Monitor. 14. Chronic left toe osteomyelitis. Continue doxycycline. Plan: -discharge home to [facility] on April 18 by ambulance for ongoing hospice care. 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 This includes: Amiodarone 200 mg b.i.d. Flomax 0.4 mg daily Allopurinol 3 mg daily Lasix Tuesday, Tuesday, and Tuesday if his legs are swollen or he was short of breath. Morphine solution for dyspnea or pain. Time-Based Coding :: [TOTAL MINUTES] spent with patient and on the chart (including review of chart, obtaining history, exam, reviewing outside data, placing orders, documenting exam and treatment plan, and counseling patient) on [DATE]. Quality VTE Deep Vein Thrombosis/Pulmonary Embolism Present on Admission: No
[2024-04-17] MEDS: MULTIVITAMIN 1 TABLET 1 TAB PO (15:36)
--- NOTE | 2024-04-17 18:36 | PC.NURSE ---
Day Shift Note Attempted to sit pt on side of bed this morning in anticipation of MBS, pt assisted to side of bed but reported feeling dizzy, BP in the 60s/40s. Waiting at side of bed for approx 10 min with no change, assisted back to bed. Reported to Dr. Patel. Plan after MD and DOOR PATCHER rounding is home with hospice. MDS cancelled. Amiodarone complete and d/c'd and pt transferred to floor care. , Fareed, to case picker prescriptions for home this evening.
[2024-04-17] MEDS: TAMSULOSIN 0.4 MG CAPSULE 0.8 MG PO (20:38)
[2024-04-17] MEDS: ATORVASTATIN 20 MG TABLET 40 MG PO (20:38)
[2024-04-17] MEDS: FINASTERIDE 5 MG TABLET PO (20:39)
[2024-04-18] MEDS: ALBUTEROL 2.5 MG/3 ML NEB (ADULT) INH (03:32)
[2024-04-18 04:00] VITALS: BP 111/70; PULSE 108; RESP 20; TEMP 36.4; O2SAT 94
--- NOTE | 2024-04-18 07:43 | PM.DS.1 ---
History of Present Illness History of Present Illness Date Patient Seen: 04/18/24 Time Patient Seen: 07:43 Chief complaint: SOB, Dizzy Narrative: Per admitting provider, The patient has a history of COPD, atrial fibrillation, pulmonary hypertension, CAD, and CHF who presents with progressive weakness and hypotension. He was recently admitted to [facility] on March 27 and discharged on the . At that time he had hypotension when which responded to fluids. Today, the patient has hypotension and atrial fib with a response in the 120s. The ED physician discussed this with Dr. Ray who recommended an amiodarone infusion. The patient denies overt leg swelling, cough, or orthopnea. He did feel quite dizzy over the last 2 days. He does live with his , on [facility]. He denies any palpitations, or chest pain. No nausea, vomiting, or diarrhea. His appetite has been stable. He was being treated for a left great toe wound and wound care in [place] and is being treated for chronic osteomyelitis by Dr. Longo of Infectious Disease at [facility]. He was his wound inspected and rewrapped once a week, this happened yesterday. Discharge Providers Provider Date of admission: 04/11/24 12:42 Discharge Date: 04/18/24 Primary care physician: Michelet Irby MD Consults: 04/13/24 15:03 Consult to Physical Therapy Evaluate & Treat Comment: Physician Instructions: Evaluate and Treat Consult to Speech Therapy Evaluate & Treat Comment: Physician Instructions: Evaluate and treat 04/16/24 11:53 Consult to Wound Care Routine Comment: Consulting Provider: [facility] Discharge provider: Diaz Moeller DO Summary Hospital Course Discharge Diagnosis: 1. Atrial fibrillation with rapid response, present on admission and improving. 2. Acute hypoxic respiratory failure, present on admission and resolved. 3. Probable acute on chronic diastolic heart failure, present on admission and improved. 4. Ventricular tachycardia. 5. COPD, present on admission and likely stable. 6. Chronic anticoagulation, present on admission stable. 8. Pulmonary hypertension, present on admission and active. 9. Hypertension with recent soft blood pressures, present on admission and active. 10. Hyperlipidemia. 11. Mild lactic acidosis, present on admission and improved. 12. Hypokalemia 13. Hypomagnesemia. 14. Chronic left toe osteomyelitis. Hospital Course: This is an 88 year old male with PMH of chronic atrial fibrillation, chronic left toe osteomyelitis, COPD, HTN who was admitted with afib with RVR. Rate was difficult to control with soft blood pressures. Cardiology was consulted via the phone and recommended amiodarone infusion, which did help with his rate. TTE showed an EF of around 55%. He was doing well on this, but developed and episode Vtach during his stay that resolved with switch back to IV amiodarone and metoprolol however metoprolol was discontinued due to soft blood pressures. He was diuresed with some IV furosemide as well, as he developed some dyspnea with his fast heart rates. After his episode of Vtach- patient elected to be DNR at that time. He had therapy evaluations and was recommended for SNF where he did not wish to go. After continued goals of care discussions the patient elected for discharge home with hospice. His medications were narrowed down to focus on comfort and he was discharged home on 04/18 with hospice. Time Spent with Patient Time spent: Greater than 30 minutes Exam Vital Signs (past 8 hours): - 04/18/24 04:00 Temperature 97.6 F Pulse Rate 108 H Respiratory Rate 20 Blood Pressure 111/70 Pulse Oximetry 94 Oxygen Flow Rate 1 Fraction of Inspired Oxygen 21 SaO2/FiO2 Ratio 452 Oxygen Delivery Method Room Air Oxygen Flow Rate 1 Narrative Exam Narrative: NAD, alert and oriented. Fluent speech. Lungs are clear, normal rate and effort. Heart is irregular, no murmur gallop or rub. Abdomen is soft, non distended. Extremities are free of edema. 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 biologic care home (current) use of systemic steroids Rheumatoid arthritis Sequela of lacunar infarction COPD (chronic obstructive pulmonary disease) Ankle pain Mumps Measles Chicken pox Hemorrhoid Anticoagulation goal of INR 2 to 3 Age related cataract Pericarditis Cholelithiasis Polymyalgia rheumatica History of tobacco use Obesity History of gastric ulcer Hyperlipidemia Hypertension Gout Chronic anticoagulation Atrial fibrillation Surgical History Anesthesia History of ankle surgery (~1965) History of appendectomy (~2018) History of tonsillectomy (~1944) History of cataract removal with insertion of prosthetic lens History of laparotomy (~1999) Family History Mother Hypertension Heart disease Diabetes mellitus Hyperlipidemia Father Hypertension Hyperlipidemia Grandmother Pneumonia Social History marital status: household members: spouse occupational status: previously employed Smoking Status: Former smoker alcohol intake: current substance use type: does not use Discharge Plan Discharge Plan Patient Disposition: Hospice - Home Provider Discharge Comment: Discharge home to [facility] with hospice. Discharge orders & Medications Prescriptions: New amiodarone 200 mg tablet 200 mg PO BID Qty: 35 0RF Rx Instructions: 1 tab BID for 7 day, then 1 tab daily furosemide [Lasix] 20 mg tablet 20 mg PO Q OTHER DAY MDD 40 PRN (Reason: edema or dyspnea) Qty: 60 0RF morphine 10 mg/5 mL solution 5 mg PO Q4H Qty: 100 0RF Continued allopurinol 300 mg tablet 300 mg PO DAILY Qty: 90 4RF tamsulosin [Flomax] 0.4 mg capsule 0.8 mg PO QPM Qty: 180 3RF budesonide-formoterol [Breyna] 80-4.5 mcg/actuation HFA aerosol inhaler 2 inh PO BID Qty: 30.9 3RF finasteride 5 mg tablet 5 mg PO DAILY Qty: 90 3RF ipratropium bromide 42 mcg (0.06 %) spray,non-aerosol 2 spray intranasal BID Rx Instructions: administer into each nostril albuterol sulfate 90 mcg/actuation HFA aerosol inhaler 2 puff INHALATION Q4H PRN (Reason: shortness of breath or wheezing) acetaminophen [Tylenol Extra Strength] 500 mg tablet 1,000 mg PO TID PRN (Reason: Pain (Scale Score 1-3)) Discontinued Eliquis 5 mg tablet 5 mg PO BID Qty: 180 3RF leflunomide 20 mg tablet 20 mg PO DAILY lovastatin 40 mg tablet 40 mg PO QPM Qty: 90 3RF famotidine [Pepcid] 40 mg tablet 40 mg PO BEDTIME Qty: 90 3RF gabapentin 100 mg capsule 100 mg PO TID Qty: 270 3RF vitamin B complex [B Complex-Vitamin B12] Tablet 1 tab PO 1200 multivitamin [One Daily Multivitamin] Tablet 1 tab PO 1200 metoprolol tartrate 25 mg tablet 12.5 mg PO BID doxycycline hyclate 100 mg capsule 100 mg PO BID folic acid 800 mcg tablet 800 mcg PO 1200 cholecalciferol (vitamin D3) 25 mcg (1,000 unit) capsule 25 mcg PO 1200 Follow up/Referrals: Michelet Irby MD [Primary Care Provider] - Diet/Activity/Treatments Diet: Diet as Tolerated and Regular Activity: No restrictions Visit Report/Discharge Packet Stand Alone Forms: Patient Portal/API, Stroke Signs & Symptoms Discharge Data Primary Care Provider: Michelet Irby Quality VTE Deep Vein Thrombosis/Pulmonary Embolism Present on Admission: No
[2024-04-18 08:00] VITALS: PULSE 111
[2024-04-18] MEDS: APIXABAN 5 MG TABLET PO (08:13)
[2024-04-18] MEDS: GABAPENTIN 100 MG CAPSULE PO (08:13)
[2024-04-18] MEDS: ACETAMINOPHEN 325 MG TABLET 975 MG PO (08:13)
[2024-04-18] MEDS: DOXYCYCLINE HYCLATE 100 MG TABLET PO (08:13)
[2024-04-18] MEDS: allopurinoL 100 MG TABLET 300 MG PO (08:13)
[2024-04-18] MEDS: IPRATROPIUM 0.06% NASAL 15 ML 1 SPRAY NASAL (08:14)
--- NOTE | 2024-04-18 08:28 | CM.DPNOTE ---
Addendum entered by STELLA Forrets 04/18/24 10:54: ADD: DC Summary sent in draft form by Dulce Jeffries, home care companion. Original Note: DC Note Patient has been discharged home this morning. BLS has been scheduled for knot picker cloth at 0900. BLS medical necessity form has been completed, signed by provider, and had been placed yesterday with face sheet and POLST for the ambulance crew. Met w/patient and spouse to review discharge plan. Both remain agreeable. [place] priority boarding pass provided to sp Fareed, spouse has [place] same ferry [place] patient. Spouse picked up patient's prescriptions last night. Plan: Discharge home w/sp via BLS, [facility] start of care today at approx 1200. DC Summary will be sent to [facility] when signed. AIDA
== END 2024-04-18 09:31 | disposition hospice, home (50) | DRG 308 ==
LOC: ED 10:14 → AC 11:48 → ED 12:42 → AC 12:43 → ICU 12:53
PROVIDERS: Internal Medicine; Admitting Provider Hospitalist; Emergency Provider Emergency Medicine; Family Provider Family Medicine; PCP Family Medicine; Referring Provider Emergency Medicine; Visit Provider Hospitalist
DX: I48.91 Unspecified atrial fibrillation (principal); I50.33 Acute on chronic diastolic (congestive) heart failure; J96.01 Acute respiratory failure with hypoxia; E87.20 Acidosis, unspecified; M86.672 Other chronic osteomyelitis, left ankle and foot; M86.172 Other acute osteomyelitis, left ankle and foot; I11.0 Hypertensive heart disease with heart failure; I47.20 Ventricular tachycardia, unspecified; J44.9 Chronic obstructive pulmonary disease, unspecified; I27.20 Pulmonary hypertension, unspecified; E87.6 Hypokalemia; E83.42 Hypomagnesemia; I25.10 Atherosclerotic heart disease of native coronary artery without angina pectoris; E11.621 Type 2 diabetes mellitus with foot ulcer; L97.522 Non-pressure chronic ulcer of other part of left foot with fat layer exposed; L97.519 Non-pressure chronic ulcer of other part of right foot with unspecified severity; S51.802D Unspecified open wound of left forearm, subsequent encounter; X58.XXXD Exposure to other specified factors, subsequent encounter; I73.9 Peripheral vascular disease, unspecified; E78.5 Hyperlipidemia, unspecified; I95.9 Hypotension, unspecified; M10.9 Gout, unspecified; Z66 Do not resuscitate; Z51.5 Encounter for palliative care; Z79.01 Long term (current) use of anticoagulants; Z87.891 Personal history of nicotine dependence; L97.512 Non-pressure chronic ulcer of other part of right foot with fat layer exposed; L84 Corns and callosities; S51.812A Laceration without foreign body of left forearm, initial encounter; R60.0 Localized edema
CPT/HCPCS: 11042; 36415; 71045; 80048; 80053; 83605; 83735; 83880; 84132; 84484; 85025; 85610; 87633; 87797; 92610; 93005; 93010; 93307; 94640; 94762; 96365; 96366; 97110; 97163; 97530; 97597; 99233; 99284; 99285; J0282; J1160; J1940; J3475; J7613